=== PATIENT | female | born 1960 | race Caucasian/White ===

== ENCOUNTER 2016-10-18 07:58 | Day surgery (SDC) | payer OTHER ==
[2016-10-12 15:44] VITALS: BMI 31.1
--- NOTE | 2016-10-18 07:55 | P.GSHP ---
History of Present Illness H&P Date: 10/18/16 CHIEF COMPLAINT: GERD and colon screen HISTORY OF PRESENT ILLNESS: The patient is a 56-year-old female who presents reports gastroesophageal reflux disease and need for colon screen. Upper and lower endoscopy were offered for further evaluation and management. PAST MEDICAL HISTORY: Please see list. PAST SURGICAL HISTORY: Please see list. MEDICATIONS: Please see list. ALLERGIES: Please see list. SOCIAL HISTORY: No illicit drug use FAMILY HISTORY: No reports of Crohn disease or ulcerative colitis. REVIEW OF ORGAN SYSTEMS: CONSTITUTIONAL: No reports of fevers or chills. GI: Denies any blood in stools or constipation. PHYSICAL EXAM: VITAL SIGNS: Stable GENERAL: Well-developed pleasant in no acute distress. HEENT: No scleral icterus. Extraocular movements grossly intact. Moist buccal mucosa. NECK: Supple without lymphadenopathy. CHEST: Unlabored respirations. Equal bilateral excursions. CARDIOVASCULAR: Regular rate and rhythm. Distal 2+ pulses. ABDOMEN: Soft, nondistended. MUSCULOSKELETAL: No clubbing, cyanosis, or edema. ASSESSMENT: 1. Gastroesophageal reflux disease 2. Colon screen. PLAN: 1. Recommend proceeding with an upper and lower endoscopy Past Medical History Past Medical History: Coronary Artery Disease (CAD), Heart Failure, GERD/Reflux , Hyperlipidemia, Hypertension, Myocardial Infarction (OK) Additional Past Medical History / Comment(s): VOCAL CORD POLYP Last Myocardial Infarction Date:: 2011 History of Any Multi-Drug Resistant Organisms: None Reported Past Surgical History: Heart Catheterization With Stent, Tonsillectomy, Tubal Ligation Additional Past Surgical History / Comment(s): JHON R.K. SX, VOCAL CHORD POLYPS REMOVED x2 Past Anesthesia/Blood Transfusion Reactions: No Reported Reaction Date of Last Stent Placement:: UNK Past Psychological History: No Psychological Hx Reported Smoking Status: Current every day smoker Past Alcohol Use History: Rare Additional Past Alcohol Use History / Comment(s): STARTED SMOKING AT AGE 17 ( 1976), SMOKING 1/2PPD FOR 36 YRS. Past Drug Use History: None Reported - Past Family History Sister(s) Family Medical History: Cancer Additional Family Medical History / Comment(s): BREAST CA. Medications and Allergies Home Medications Medication Instructions Recorded Confirmed Type Aspirin 81 mg PO QAM 07/29/14 10/12/16 History Carvedilol 25 mg PO BID 07/29/14 10/12/16 History Furosemide [Lasix] 20 mg PO QAM 07/29/14 10/12/16 History Lisinopril [Zestril] 10 mg PO QAM 07/29/14 10/12/16 History amLODIPine [Norvasc] 5 mg PO BID 07/29/14 10/12/16 History Atorvastatin [Lipitor] 80 mg PO HS 08/27/14 10/12/16 History Co Q-10 200 mg PO QAM 10/12/16 10/12/16 History Fish Oil & [place] 3-6-9 1,600 mg PO BID 10/12/16 10/12/16 History Vitamin B Complex 1 tab PO QAM 10/12/16 10/12/16 History Allergies Allergy/AdvReac Type Severity Reaction Status Date / Time No Known Allergies Allergy Verified 10/12/16 15:20
[~2016-10-18 07:58] MED LIST: LACTATED RINGERS 1,000 ML IV SCH; LIDOCAINE 1% 20 ML VIAL (10MG/ML) FOR IV START INTRADERMA PRN
[2016-10-18 08:27] VITALS: TEMP 98.1
[2016-10-18] MEDS ORDERED: LIDOCAINE 1% 20 ML VIAL (10MG/ML) FOR IV START INTRADERMA ONE (08:28)
[2016-10-18] MEDS ORDERED: ePHEDrine 50 MG/ML 1 ML AMP ONE (08:35)
[2016-10-18] MEDS ORDERED: PROPOFOL 10 MG/ML 20 ML VIAL IV ONE (08:35)
[2016-10-18] MEDS ORDERED: fentaNYL (PF) 50 MCG/ML 2 ML AMP ONE (08:35)
[2016-10-18] MEDS ORDERED: MIDAZOLAM 2 MG/2 ML VIAL ONE (08:35)
--- NOTE | 2016-10-18 09:02 | P.PCN ---
Date of Procedure: 10/18/16 Description of Procedure: PREOPERATIVE DIAGNOSIS: Gastroesophageal reflux disease. History of vocal cord polyps. POSTOPERATIVE DIAGNOSIS: Gastroesophageal reflux disease. History of vocal cord polyps. Chronic gastritis without stigmata of prior bleed Diaphragmatic hiatal hernia. Duodenitis. OPERATION: Esophagogastroduodenoscopy with biopsies along antrum and duodenum. SURGEON: Belen Paula MD ANESTHESIA: MAC. INDICATIONS: The patient is a 56-year-old female who presents with a history of reflux disease. Benefits and risks of the procedure were described. Informed consent was obtained. DESCRIPTION: The patient was brought into the endoscopy suite and laid in the left lateral decubitus position. An Olympus gastroscope was passed along the posterior oropharynx down to the distal esophagus where the squamocolumnar junction was encountered at 35 cm from the incisors. The stomach was entered and minimal bile reflux was found. Additional findings are listed below. Biopsies with cold forceps were obtained of the antrum. The first through third portion of the duodenum was examined and remarkable for acute duodenitis. Retroflexion of the scope confirmed Hill grade 4 lower esophageal valve. The squamocolumnar junction demostrated LA grade A erosive esophagitis. The stomach was desufflated. The patient tolerated the procedure well. FINDINGS: Squamocolumnar junction 35 cm from the incisors. Diaphragmatic hiatus at 36 cm from the incisors. Hiatal hernia, 1 cm. Hill grade 4 lower esophageal valve. LA grade A erosive esophagitis. Active duodenitis. Chronic gastritis. RECOMMENDATIONS: Start medical therapy. Further recommendations pending results of pathology report. Upper endoscopy as needed. Plan - Discharge Summary Discharge Medication List Aspirin 81 mg PO QAM 07/29/14 [History] Carvedilol 25 mg PO BID 07/29/14 [History] Furosemide [Lasix] 20 mg PO QAM 07/29/14 [History] Lisinopril [Zestril] 10 mg PO QAM 07/29/14 [History] amLODIPine [Norvasc] 5 mg PO BID 07/29/14 [History] Atorvastatin [Lipitor] 80 mg PO HS 08/27/14 [History] Co Q-10 200 mg PO QAM 10/12/16 [History] Fish Oil & [place] 3-6-9 1,600 mg PO BID 10/12/16 [History] Vitamin B Complex 1 tab PO QAM 10/12/16 [History]
--- NOTE | 2016-10-18 09:04 | P.PCN ---
Date of Procedure: 10/18/16 Description of Procedure: PREOPERATIVE DIAGNOSIS: Colonoscopy screening. Family history of colon cancer. History of rectal bleeding. POSTOPERATIVE DIAGNOSIS: Colonoscopy screening. Family history of colon cancer. History of rectal bleeding. External hemorrhoids, grade 4 without inflammation. Sigmoid diverticulosis. OPERATION: Colonoscopy to the ileocecal valve and appendiceal orifice. SURGEON: Belen Paula MD. ANESTHESIA: MAC. INDICATIONS: The patient is a 56-year-old female who presents for colonoscopy screening. She has family history of colon cancer. Benefits and risks were described and informed consent was obtained. DESCRIPTION OF PROCEDURE: The patient had undergone Gatorade, MiraLAX and Dulcolax prep. The patient had been brought into the operating room and laid in the left lateral decubitus position. After adequate intravenous sedation, the rectum was examined with 2% lidocaine jelly. No external hemorrhoids were encountered. The rectal tone was within normal limits. No lesions were palpated in the rectal vault. An Olympus colonoscope was advanced until the ileocecal valve and appendiceal orifice were clearly viewed. The prep was excellent with clear visualization of the mucosal folds. The scope was removed with visualization of each mucosal fold. Few small scattered diverticulosis was encountered. No colonic polyps were found. No evidence of focal colitis was found. Retroflexion of the scope demonstrated grade 4 internal hemorrhoids without active bleeding or inflammation. The colon was desufflated. The patient had tolerated the procedure well. Withdrawal time was over 6 minutes. FINDINGS: Internal hemorrhoids, grade 4 External prolapsed hemorrhoids. No arteriovenous malformations. No adenomatous polyps. No focal colitis. Sigmoid diverticulosis, few, scattered. RECOMMENDATIONS: Lower endoscopy every 5 years with family history of colon polyps or cancer, due 2021.
[2016-10-18 09:12] VITALS: RESP 16
[2016-10-18 09:53] VITALS: BP 94/62; PULSE 56
== END 2016-10-18 10:09 | disposition home or self-care (01) ==
LOC: ORWHC2ENDO 07:58
PROVIDERS: ATTEND Surgery Plastic and Reconstructive Surgery
DX: Z12.11 Encounter for screening for malignant neoplasm of colon (principal); Z80.0 Family history of malignant neoplasm of digestive organs; K64.3 Fourth degree hemorrhoids; K57.30 Diverticulosis of large intestine without perforation or abscess without bleeding; K29.50 Unspecified chronic gastritis without bleeding; K21.0 Gastro-esophageal reflux disease with esophagitis; K44.9 Diaphragmatic hernia without obstruction or gangrene; K29.80 Duodenitis without bleeding; Z87.898 Personal history of other specified conditions; Z87.19 Personal history of other diseases of the digestive system; I25.10 Atherosclerotic heart disease of native coronary artery without angina pectoris; E78.5 Hyperlipidemia, unspecified; I11.0 Hypertensive heart disease with heart failure; I50.9 Heart failure, unspecified; I25.2 Old myocardial infarction; Z95.5 Presence of coronary angioplasty implant and graft; F17.200 Nicotine dependence, unspecified, uncomplicated; Z79.82 Long term (current) use of aspirin; Z79.899 Other long term (current) drug therapy
CPT/HCPCS: 81025; 88305; 88342; 43239; J2250; J3010; J2704; G0105; 99153

== ENCOUNTER → 2018-01-22 | Outpatient (CLI) | payer BC ==
--- NOTE | 2018-01-22 17:41 | XR ---
EXAMINATION TYPE: XR shoulder complete LT DATE OF EXAM: 01/22/2018 COMPARISON: NONE HISTORY: Shoulder pain TECHNIQUE: 3 views FINDINGS: I see no fracture nor dislocation. Joint spaces are normal. There are no pathologic calcifi cations. IMPRESSION: Negative left shoulder exam.
== END | disposition home or self-care (01) ==
LOC: RADXRMAIN 17:24
PROVIDERS: ATTEND Physician Assistant
DX: M25.512 Pain in left shoulder (principal)

== ENCOUNTER → 2018-11-06 | Outpatient (CLI) | payer BC ==
--- NOTE | 2018-11-07 01:38 | XR ---
EXAMINATION TYPE: XR wrist complete RT DATE OF EXAM: 11/06/2018 COMPARISON: NONE HISTORY: 58 year-old female right wrist pain after fall TECHNIQUE: 4 views FINDINGS: Degenerative joint space narrowing at the distal radioulnar joint. Very slight positive ulnar varianc e. Mild to moderate degenerative spurring and mild joint space narrowing at the first CMC and triscap he joints. Mild soft tissue swelling. No acute fracture, subluxation, or dislocation seen. IMPRESSION: 1. Some degenerative changes at the DRUJ and base of the thumb. 2. Soft tissue swelling at the wrist. No acute osseous abnormality seen.
== END | disposition home or self-care (01) ==
LOC: RADXRMAIN 16:14
PROVIDERS: ATTEND Nurse Practitioner Adult Health
DX: M19.031 Primary osteoarthritis, right wrist (principal)

== ENCOUNTER → 2021-01-12 | Outpatient (CLI) | payer BC ==
--- NOTE | 2021-01-12 15:52 | XR ---
EXAMINATION TYPE: XR ankle complete LT DATE OF EXAM: 01/12/2021 COMPARISON: NONE HISTORY: Pain TECHNIQUE: 3 views of the left ankle are submitted for evaluation. FINDINGS: There is no evidence for fracture or dislocation. Ankle mortise is intact. Soft tissues are within normal limits. IMPRESSION: 1. No evidence for acute fracture.
--- NOTE | 2021-01-12 15:52 | XR ---
EXAMINATION TYPE: XR foot complete LT DATE OF EXAM: 01/12/2021 CLINICAL HISTORY: pain TECHNIQUE: Frontal, lateral and oblique images of the left foot are obtained. COMPARISON: None. FINDINGS: There is no acute fracture/dislocation evident. The joint spaces appear within normal miranda its. The overlying soft tissue appears unremarkable. IMPRESSION: There is no acute fracture or dislocation. ICD 10 NO FRACTURE, INITIAL EVALUATION
== END | disposition home or self-care (01) ==
LOC: RADXRMAIN 15:17
PROVIDERS: ATTEND Nurse Practitioner Family
DX: S99.922A Unspecified injury of left foot, initial encounter (principal)

== ENCOUNTER → 2023-04-25 | Outpatient (CLI) | payer OTHER ==
[2023-04-25 17:13] LABS: ALT 16 U/L (8-44); AST 22 U/L (13-35); Chol/HDL Ratio 3.45 Ratio; LDL Cholesterol,Calculated 85.3 mg/dL (0.0-131.0)
== END | disposition home or self-care (01) ==
LOC: LABWHC1 10:07
PROVIDERS: ATTEND Internal Medicine Interventional Cardiology
DX: E78.00 Pure hypercholesterolemia, unspecified (principal)
CPT/HCPCS: 36415; 80061; 84450; 84460

== ENCOUNTER → 2023-07-05 | Outpatient (CLI) | payer BC ==
--- NOTE | 2023-07-05 13:51 | XR ---
EXAMINATION TYPE: XR chest 2V DATE OF EXAM: 07/05/2023 12:56 PM CLINICAL INDICATION:Female, 63 years old with history of I50.9 Heart failure unspecified; PH[facility] COMPARISON: Chest radiographs from 09/06/2012 TECHNIQUE: XR chest 2V Frontal and lateral views of the chest. FINDINGS: Lungs/Pleura: Elevated right diaphragm with consolidation changes of the right lung base likely repre senting the right middle lobe. There is no evidence of pleural effusion, focal consolidation, or pneu mothorax. Pulmonary vascularity: Unremarkable. Heart/mediastinum: Cardiomediastinal silhouette is unremarkable. Musculoskeletal: No acute osseous pathology. IMPRESSION: Consolidation changes thought to represent the right middle lobe in the lung base. Further evaluation with CT is recommended.
== END | disposition home or self-care (01) ==
LOC: RADXRMAIN 12:40
PROVIDERS: ATTEND Family Medicine
DX: I50.9 Heart failure, unspecified (principal); R91.8 Other nonspecific abnormal finding of lung field
CPT/HCPCS: 71046

== ENCOUNTER → 2023-07-10 | Outpatient (CLI) | payer BC ==
--- NOTE | 2023-07-10 14:31 | CT ---
EXAMINATION TYPE: CT chest wo/w con CT DLP: 749.00 mGycm, Automated exposure control for dose reduction was used. DATE OF EXAM: 07/10/2023 2:16 PM COMPARISON: CTA coronary 09/04/2012. CLINICAL INDICATION:Female, 63 years old with history of J18.1 LOBAR PNEUMONIA; PHH, pneumonia TECHNIQUE: Multiple axial images were obtained through the chest. Sagittal and coronal reformats were created for review. Contrast used:100 mL of Isovue 300 with IV Contrast (None if empty) Oral contrast used: (None if empty) FINDINGS: LUNGS/ PLEURA: [id number] right pleural effusion. This gradually septal thickening within the right lung with ground glass opacities. There is atelectasis of the lower lung. Small area of enhance ment in the inferior aspect of the right lower lobe medially measuring 11 mm. AIRWAY: Large airways cut off sign in the right main bronchus. HEART: Size within normal limits. MEDIASTINUM: Conglomerate lymphadenopathy throughout the mediastinum. Examples include subcarinal mas s-like area measuring 5.6 x 3.4 cm which obscures the esophagus. Microinvasion into the esophagus is nontender excluded.. AP window lymph node measuring up to 18 mm, prevascular space lymph nodes measur ing up to 5.1 x 2.2 cm. VASCULATURE: No aortic aneurysm. MUSCULOSKELETAL: No acute osseous abnormalities SOFT TISSUES/LYMPH NODES: Unremarkable. LOWER NECK: No significant findings. UPPER ABDOMEN: Scattered lesions throughout the liver the largest measuring up to 2.8 cm in the right hepatic lobe and left hepatic lobe measuring up to 3.2 cm. Upper abdominal lymph nodes are also pres ent. Gastric hepatic lymph node measuring 7 mm in short axis is suspicious. Nodular changes to the ad renal glands are also present. IMPRESSION: 1. 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 2. PET/CT recommended for Further workup recommended. 3. Right pleural effusion with right inferior medial lobe pulmonary nodule which could be on the and visceral pleura. Findings concerning for pleural metastatic disease. 4. There is obscuration of the esophagus as it passes along large mediastinal mass. Underlying invas ion into the esophagus not entirely excluded. Correlate with
== END | disposition home or self-care (01) ==
LOC: RADCTMAIN 13:19
PROVIDERS: ATTEND Family Medicine
DX: J18.1 Lobar pneumonia, unspecified organism (principal); J90 Pleural effusion, not elsewhere classified; R91.1 Solitary pulmonary nodule
CPT/HCPCS: 71270; Q9967

== ENCOUNTER 2023-07-14 18:35 | Inpatient (IN) | payer BC ==
[2023-07-14] MEDS ORDERED: methylPREDNISolone SOD SUCCI 125 MG/2 ML VIAL IV STA (18:55)
[2023-07-14] MEDS ORDERED: IPRATROPIUM-ALBUTEROL 3 ML NEB INHALATION STA (18:55)
[2023-07-14] MEDS ORDERED: SODIUM CHLORIDE 0.9% 1,000 ML IV STA (18:55)
--- NOTE | 2023-07-14 18:55 | ED ---
SOB HPI - General Chief Complaint: Shortness of Breath Stated Complaint: SOB Time Seen by Provider: 07/14/23 18:44 Source: patient, EMS, RN notes reviewed, old records reviewed Mode of arrival: EMS Limitations: no limitations - History of Present Illness Initial Comments: This is a 63-year-old female to the emergency department for evaluation. Patient presents today for evaluation regards to severe. Patient does have recent likely diagnosis of lung cancer and lung mass. Underlying history of smoking with heart disease. Patient is having increasing shortness of breath especially with any sort of exertion. Patient's exercise tolerance is down to just been able take a few steps patient did recently a PET scan showing likely mass MD Complaint: shortness of breath -: hour(s), days(s) Severity: moderate Severity scale (1-10): 4 Consistency: constant Improves With: nothing Worsens With: nothing Known History Of: COPD, congestive heart failure Context: recent URI, recent illness Associated Symptoms: chest pain, cough Treatments Prior to Arrival: none - Related Data Home Medications Medication Instructions Recorded Confirmed Aspirin 81 mg PO DAILY 07/29/14 07/14/23 Carvedilol 25 mg PO BID 07/29/14 07/14/23 Furosemide [Lasix] 20 mg PO DAILY 07/29/14 07/14/23 amLODIPine [Norvasc] 5 mg PO BID 07/29/14 07/14/23 lisinopriL [Zestril] 10 mg PO DAILY 07/29/14 07/14/23 Atorvastatin [Lipitor] 80 mg PO HS 08/27/14 07/14/23 Levofloxacin [Levaquin] 500 mg PO DAILY 07/14/23 07/14/23 Allergies Allergy/AdvReac Type Severity Reaction Status Date / Time No Known Allergies Allergy Verified 07/17/23 12:37 Review of Systems ROS Statement: Those systems with pertinent positive or pertinent negative responses have been documented in the HPI. ROS Other: All systems not noted in ROS Statement are negative. Past Medical History Past Medical History: Coronary Artery Disease (CAD), Heart Failure, GERD/Reflux, Hyperlipidemia, Hypertension, Myocardial Infarction ([place]) Additional Past Medical History / Comment(s): VOCAL CORD POLYP Last Myocardial Infarction Date:: 2011 History of Any Multi-Drug Resistant Organisms: None Reported Past Surgical History: Heart Catheterization With Stent, Tonsillectomy, Tubal Ligation Additional Past Surgical History / Comment(s): JHON R.K. SX, VOCAL CHORD POLYPS REMOVED x2 Past Anesthesia/Blood Transfusion Reactions: No Reported Reaction Date of Last Stent Placement:: UNK Past Psychological History: No Psychological Hx Reported Smoking Status: Current every day smoker Past Alcohol Use History: Rare Past Drug Use History: None Reported - Past Family History Sister(s) Family Medical History: Cancer General Exam Limitations: no limitations General appearance: alert, in no apparent distress, anxious Head exam: Present: atraumatic, normocephalic, normal inspection Eye exam: Present: normal appearance, PERRL, EOMI. Absent: scleral icterus, conjunctival injection, periorbital swelling ENT exam: Present: normal exam, mucous membranes moist Neck exam: Present: normal inspection. Absent: tenderness, meningismus, lymphadenopathy Respiratory exam: Present: normal lung sounds bilaterally. Absent: respiratory distress, wheezes, rales, rhonchi, stridor Cardiovascular Exam: Present: regular rate, normal rhythm, normal heart sounds. Absent: systolic murmur, diastolic murmur, rubs, gallop, clicks GI/Abdominal exam: Present: soft, normal bowel sounds. Absent: distended, te nderness, guarding, rebound, rigid Extremities exam: Present: normal inspection, full ROM, normal capillary refill. Absent: tenderness, pedal edema, joint swelling, calf tenderness Back exam: Present: normal inspection Neurological exam: Present: alert, oriented X3, CN II-XII intact Psychiatric exam: Present: normal affect, normal mood Skin exam: Present: warm, dry, intact, normal color. Absent: rash Course Vital Signs 07/14/23 07/14/23 07/14/23 18:40 18:43 18:45 Temperature 98.1 F Pulse Rate 89 Respiratory 22 22 Rate Blood Pressure 118/65 118/65 O2 Sat by Pulse 96 96 Oximetry 07/14/23 07/14/23 07/14/23 19:00 19:28 19:30 Temperature Pulse Rate 85 86 85 Respiratory 18 Rate Blood Pressure 118/65 94/57 O2 Sat by Pulse 95 98 Oximetry 07/14/23 07/14/23 07/14/23 19:41 20:00 21:00 Temperature Pulse Rate 87 86 Respiratory 18 Rate Blood Pressure 96/62 111/72 O2 Sat by Pulse 96 Oximetry 07/14/23 07/14/2307/15/23 21:30 22:00 00:00 Temperature Pulse Rate 87 90 89 Respiratory 20 20 20 Rate Blood Pressure 118/72 121/64 105/66 O2 Sat by Pulse 95 95 96 Oximetry 07/15/23 07/15/23 07/15/23 00:25 00:30 00:34 Temperature Pulse Rate 91 87 87 Respiratory 19 Rate Blood Pressure 112/67 O2 Sat by Pulse 98 Oximetry 07/15/23 07/15/23 07/15/23 01:00 01:14 01:30 Temperature Pulse Rate 90 93 Respiratory 19 18 Rate Blood Pressure 119/70 103/61 O2 Sat by Pulse 95 95 95 Oximetry 07/15/23 07/15/23 07/15/23 02:30 03:09 04:00 Temperature Pulse Rate 94 96 97 Respiratory 17 Rate Blood Pressure 113/63 112/70 112/70 O2 Sat by Pulse 95 95 93 L Oximetry 07/15/23 07/15/23 07/15/23 05:00 05:12 05:24 Temperature Pulse Rate 90 90 91 Respiratory Rate Blood Pressure 111/62 O2 Sat by Pulse 96 Oximetry 07/15/23 07/15/23 07/15/23 06:00 06:23 07:00 Temperature Pulse Rate 87 89 90 Respiratory 16 Rate Blood Pressure 98/62 98/62 89/58 O2 Sat by Pulse 96 96 Oximetry 07/15/23 07/15/23 07/15/23 07:56 08:00 08:04 Temperature Pulse Rate 93 99 Respiratory 18 18 Rate Blood Pressure 99/61 O2 Sat by Pulse 98 100 Oximetry 07/15/23 07/15/23 07/15/23 08:43 09:00 10:00 Temperature 98.7 F Pulse Rate 99 96 89 Respiratory 18 Rate Blood Pressure 139/87 139/81 100/69 O2 Sat by Pulse 94 L 95 98 Oximetry 07/15/23 07/15/23 07/15/23 11:00 11:15 11:22 Temperature Pulse Rate 86 89 86 Respiratory 18 16 Rate Blood Pressure 113/71 O2 Sat by Pulse 94 L Oximetry 07/15/23 07/15/23 07/15/23 12:00 12:37 13:00 Temperature Pulse Rate 86 85 89 Respiratory 18 Rate Blood Pressure 89/58 96/60 96/60 O2 Sat by Pulse 95 95 95 Oximetry 07/15/23 07/15/23 07/15/23 14:00 15:00 16:00 Temperature Pulse Rate 87 90 89 Respiratory Rate Blood Pressure 99/61 84/58 91/55 O2 Sat by Pulse 95 96 96 Oximetry 07/15/23 07/15/23 07/15/23 16:14 16:25 17:00 Temperature Pulse Rate 90 90 89 Respiratory 18 18 Rate Blood Pressure 95/57 O2 Sat by Pulse 96 Oximetry 07/15/23 07/15/23 07/15/23 18:00 18:02 19:00 Temperature 98.1 F Pulse Rate 88 87 88 Respiratory 18 Rate Blood Pressure 112/70 110/66 110/66 O2 Sat by Pulse 96 Oximetry 07/15/23 07/15/23 07/15/23 19:30 20:00 20:10 Temperature Pulse Rate 89 90 90 Respiratory 19 Rate Blood Pressure 102/55 102/55 O2 Sat by Pulse 95 94 L Oximetry 07/15/23 07/15/23 07/15/23 20:25 21:00 22:00 Temperature Pulse Rate 90 88 89 Respiratory Rate Blood Pressure 85/62 103/65 O2 Sat by Pulse Oximetry 07/15/23 07/15/23 07/15/23 22:13 23:00 23:17 Temperature Pulse Rate 88 85 84 Respiratory 19 19 Rate Blood Pressure 90/77 90/77 107/64 O2 Sat by Pulse 92 L Oximetry 07/16/23 07/16/23 07/16/23 00:00 01:00 02:00 Temperature Pulse Rate 90 88 86 Respiratory Rate Blood Pressure 107/64 O2 Sat by Pulse Oximetry 07/16/23 07/16/23 07/16/23 02:30 03:00 04:00 Temperature 97.8 F Pulse Rate 102 H 91 93 Respiratory 20 Rate Blood Pressure 142/96 142/96 128/84 O2 Sat by Pulse 93 L Oximetry 07/16/23 07/16/23 05:00 05:36 Temperature Pulse Rate 86 89 Respiratory 19 Rate Blood Pressure 128/84 128/84 O2 Sat by Pulse 93 L Oximetry - Reevaluation(s) Reevaluation #1: 07/14/23 19:19 Medical record is reviewed Reevaluation #2: 07/14/23 22:41 Patient symptoms are mildly improved with breathing treatment Reevaluation #3: 10/28/23 22:41 Patient informed results and questions answered Reevaluation #4: 07/14/23 19:19 Was pt. sent in by a medical professional or institution (SWETHA Castillo, PHYS ASST, urgent care, hospital, or assisted...) When possible be specific @ -no Did you speak to anyone other than the patient for history (EMS, parent, family, police, friend...)? What history was obtained from this source @ -no Did you review nursing and triage notes (agree or disagree)? Why? @ -agree Are old charts reviewed (outside hosp., previous admission, EMS record, old EKG, old radiological studies, urgent care reports/EKG's, assisted records)? Report findings @ -yes Differential Diagnosis (chest pain, altered mental status, abdominal pain women, abdominal pain men, vaginal bleeding, weakness, fever, dyspnea, syncope, headache, dizziness, GI bleed, back pain, seizure, CVA, palpatations, mental health, musculoskeletal)? @ -prior EKG interpreted by me (3pts min.). @ -yes X-rays interpreted by me (1pt min.). @ -yes CT interpreted by me (1pt min.). @ -yes U/S interpreted by me (1pt. min.). @ -no What testing was considered but not performed or refused? (CT, X-rays, U/S, labs)? Why? @ -none What meds were considered but not given or refused? Why? @ -none Did you discuss the management of the patient with other professionals (professionals i.e. SWETHA Castillo, [facility]YS [facility], lab, RT, psych nurse, adoption social worker, electric tripper machine operator, teacher, security vehicle patrol officer, case technician)? Give summary @ -no Was smoking cessation discussed for >3mins.? @ -no Was critical care preformed (if so, how long)? @ -no Were there social determinants of health that impacted care today? How? (Homelessness, low income, unemployed, alcoholism, drug addiction, transportation, low edu. Level, literacy, decrease access to med. care, group home, rehab)? @ -none Was there de-escalation of care discussed even if they declined (Discuss DNR or withdrawal of care, Hospice)? DNR status @ -no What co-morbidities impacted this encounter? (DM, HTN, Smoking, COPD, CAD, Cancer, CVA, ARF, Chemo, Hep., AIDS, mental health diagnosis, sleep apnea, morbid obesity)? @ -none Was patient admitted / discharged? Hospital course, mention meds given and route, prescriptions, significant lab abnormalities, going to OR and other pertinent info. @ - 63 female to the emergency department for evaluation of severe shortness of breath, severe underlying COPD with likely oncology, cancer right lower with right lung opacification an effusion Admitted Undiagnosed new problem with uncertain prognosis? @ -no Drug Therapy requiring intensive monitoring for toxicity (Heparin, Nitro, Insulin, Cardizem)? @ -no Were any procedures done? @ -no Diagnosis/symptom? @ -COPD with possibility of underlying cancer Acute, or Chronic, or Acute on Chronic? @ -Acute Uncomplicated (without systemic symptoms) or Complicated (systemic symptoms)? @ -Complicated Side effects of treatment? @ -no Exacerbation, Progression, or Severe Exacerbation? @ -exacerbation Poses a threat to life or bodily function? How? (Chest pain, [place], [place], pneumonia, PE, COPD, DKA, ARF, appy, cholecystitis, CVA, Diverticulitis, Homicidal, Suicidal, threat to staff... and all critical care pts) @ -yes Reevaluation #5: 07/14/23 22:41 Differential Dyspnea: Coronary syndrome, arrhythmia, tamponade, asthma, COPD, pulmonary embolism, pneumonia, pneumothorax, pulmonary effusion, anaphylaxis, diabetic ketoacidosis, flailed chest, pulmonary contusion, diaphragmatic rupture, anemia, neuromuscular, this is not meant to be an all-inclusive list. - Consultations Consultation #1: Spoke with [facility] were agrees to admit this patient Medical Decision Making - Medical Decision Making 63 female to the emergency department for evaluation of severe shortness of breath, severe underlying COPD with likely oncology, cancer right lower with right lung opacification an effusion - Lab Data Result diagrams: 07/22/23 03:49 07/22/23 03:54 Lab Results 07/14/23 07/14/23 07/14/23 Range/Units 19:21 19:21 19:21 PT 11.5 (10.0-12.5) sec INR 1.1 (<1.2) APTT 25.8 (22.0-30.0) sec D-Dimer 1.67 H (<0.60) mg/L FEU Sodium 128 L (137-145) mmol/L Potassium 3.8 (3.5-5.1) mmol/L Chloride 96 L (98-107) mmol/L Carbon Dioxide 23 (22-30) mmol/L Anion Gap 9 mmol/L BUN 18 H (7-17) mg/dL Creatinine 0.43 L (0.52-1.04) mg/dL Est GFR (CKD-EPI)AfAm >90 (>60 ml/min/1.73 sqM) Est GFR (CKD-EPI)NonAf >90 (>60 ml/min/1.73 sqM) Glucose 109 H (74-99) mg/dL Plasma Lactic Acid Chencho 1.3 (0.7-2.0) mmol/L Calcium 8.3 L (8.4-10.2) mg/dL Magnesium 1.9 (1.6-2.3) mg/dL Total Bilirubin 0.7 (0.2-1.3) mg/dL AST 39 H (14-36) U/L ALT 20 (4-34) U/L Alkaline Phosphatase 75 (38-126) U/L Troponin I (0.000-0.034) ng/mL NT-Pro-B Natriuret Pep 178 pg/mL Total Protein 6.0 L (6.3-8.2) g/dL Albumin 3.0 L (3.5-5.0) g/dL 07/14/ Range/Units 19:21 PT (10.0-12.5) sec INR (<1.2) APTT (22.0-30.0) sec D-Dimer (<0.60) mg/L FEU Sodium (137-145) mmol/L Potassium (3.5-5.1) mmol/L Chloride (98-107) mmol/L Carbon Dioxide (22-30) mmol/L Anion Gap mmol/L BUN (7-17) mg/dL Creatinine (0.52-1.04) mg/dL Est GFR (CKD-EPI)AfAm (>60 ml/min/1.73 sqM) Est GFR (CKD-EPI)NonAf (>60 ml/min/1.73 sqM) Glucose (74-99) mg/dL Plasma Lactic Acid Chen[place] (0.7-2.0) mmol/L Calcium (8.4-10.2) mg/dL Magnesium (1.6-2.3) mg/dL Total Bilirubin (0.2-1.3) mg/dL AST (14-36) U/L ALT (4-34) U/L Alkaline Phosphatase (38-126) U/L Troponin I <0.012 (0.000-0.034) ng/mL NT-Pro-B Natriuret Pep pg/mL Total Protein (6.3-8.2) g/dL Albumin (3.5-5.0) g/dL - EKG Data -: EKG Interpreted by Me (EKG is sinus 85 VA 156 QRS 91 QTC 386) - Radiology Data Radiology results: report reviewed (Chest x-ray CT chest show right lung effusion opacification), image reviewed Critical Care Time Critical Care Time: Yes Total Critical Care Time: 31 Disposition Clinical Impression: Acute exacerbation of chronic obstructive pulmonary disease, Acute respiratory failure, Pleural effusion, Hyponatremia, Pleural effusion, right Disposition: ADMITTED IP TO THIS HOSP Condition: Fair Is patient prescribed a controlled substance at d/c from ED?: No Time of Disposition: 22:30
[2023-07-14 19:48] LABS: ALT 20 U/L (4-34); AST 39 U/L (14-36); African American GFR (CKD) >90 (>60 ml/min/1.73 sqM); Alkaline Phosphatase 75 U/L (38-126); Anion Gap 9 mmol/L; Blood Urea Nitrogen 18 mg/dL (7-17); Calcium 8.3 mg/dL (8.4-10.2); Carbon Dioxide 23 mmol/L (22-30); Chloride 96 mmol/L (98-107); Glucose 109 mg/dL (74-99); Magnesium 1.9 mg/dL (1.6-2.3); Non-African American GFR(CKD) >90 (>60 ml/min/1.73 sqM); Potassium 3.8 mmol/L (3.5-5.1); Sodium 128 mmol/L (137-145); Total Bilirubin 0.7 mg/dL (0.2-1.3)
[2023-07-14 19:51] LABS: INR 1.1 (<1.2); Partial Thromboplastin Time 25.8 sec (22.0-30.0); Prothrombin Time 11.5 sec (10.0-12.5)
[2023-07-14 19:56] LABS: NT-Pro-B-Type Natriuretic Pept 178 pg/mL
--- NOTE | 2023-07-14 20:31 | XR ---
EXAMINATION TYPE: XR chest 1V portable DATE OF EXAM: 07/14/2023 COMPARISON: 07/05/2023 INDICATION: Short of breath TECHNIQUE: Single frontal view of the chest is obtained. FINDINGS: The heart size is normal. The pulmonary vasculature is normal. There is opacification of the right lung. IMPRESSION: 1. Interval plate ossification of the right lung. Correlate for atelectasis and effusions.
--- NOTE | 2023-07-14 20:58 | CT ---
CT CHEST FOR PULMONARY EMBOLISM. EXAMINATION TYPE: CT angio chest DATE OF EXAM: 07/14/2023 INDICATION: Shortness of breath x 3 days. States that she quit smoking a few months ago. CT DLP: 357.9 mGycm, Automated exposure control for dose reduction was used. CONTRAST: Patient injected with 100 cc mL of Isovue 370. COMPARISON: 07/10/2023 TECHNIQUE: CT of the chest is performed on a spiral scan at 2 mm thick sections. Study is performed with intravenous contrast timed for evaluation for pulmonary embolism. This will limit additional po rtions of the evaluation. 3-D MIP images reconstructed by the technologist are reviewed on the compu ter in the coronal and sagittal planes. FINDINGS: No persistent filling defects are evident to suggest an acute pulmonary embolism. Prominent mediastinal adenopathy is present. The ascending aorta diameter at the level of the main p ulmonary artery is 3.3 cm. The main pulmonary artery diameter at the bifurcation is 2.4 cm. Small pe ricardial effusion is present. There is a large right pleural effusion. There is a consolidation through the remaining portions of t he lung. Compressive atelectasis at the right lung base. Underlying masses would be difficult to excl ude and follow-up to clearing is recommended. Suspected metastatic disease within the liver poorly visualized this time. IMPRESSION: 1. No acute pulmonary embolism. 2. There is poor vascularity on the right with a large right pleural effusion, compressive atelectasi s at the lung bases and apparent consolidation within the right upper lung field. Underlying mass bowen uld be considered. Findings are worsening from comparison 3. Enlarged mediastinal adenopathy.
[2023-07-14] MEDS ORDERED: ONDANSETRON 4 MG/2 ML VIAL IVP PRN (22:34)
[2023-07-14] MEDS ORDERED: NALOXONE 0.4 MG/ML 1 ML VIAL IV PRN (22:34)
[2023-07-14] MEDS ORDERED: MORPHINE SULFATE 4 MG/ML SYRINGE IV PRN (22:34)
[2023-07-14] MEDS ORDERED: ACETAMINOPHEN TAB 325 MG TAB PO PRN (22:34)
[2023-07-14] MEDS: SODIUM CHLORIDE 0.9% 1,000 ML IV SCH (23:04)
[2023-07-14 23:15] LABS: Basophils % (A) 0 %; Eosinophils # (A) 0.1 k/uL (0-0.7); Eosinophils % (A) 0 %; HCT 33.8 % (34.0-46.0); Lymphocytes # (A) 0.5 k/uL (1.0-4.8); Lymphocytes % (A) 4 %; MCHC 33.8 g/dL (31.0-37.0); MCV 91.9 fL (80.0-100.0); Mean Platelet Volume 7.2; Monocytes # (A) 0.3 k/uL (0-1.0); Monocytes % (A) 2 %; Neutrophils # (A) 12.3 k/uL (1.3-7.7); Neutrophils % (A) 93 %; Platelet Count 376 k/uL (150-450); RBC 3.68 m/uL (3.80-5.40); RDW 12.8 % (11.5-15.5); WBC 13.2 k/uL (3.8-10.6)
[2023-07-14 23:52] LABS: HGB 11.4 gm/dL (11.4-16.0)
[2023-07-15] MEDS: ALBUTEROL NEBULIZED 2.5 MG/3 ML INHALATION SCH ×7 (00:23→20:10)
[2023-07-15 03:50] LABS: Basophils % (A) 0 %; Eosinophils # (A) 0.1 k/uL (0-0.7); Eosinophils % (A) 1 %; HCT 35.6 % (34.0-46.0); HGB 11.8 gm/dL (11.4-16.0); Lymphocytes # (A) 0.5 k/uL (1.0-4.8); Lymphocytes % (A) 4 %; MCH 30.8 pg (25.0-35.0); MCHC 33.3 g/dL (31.0-37.0); MCV 92.4 fL (80.0-100.0); Mean Platelet Volume 7.2; Monocytes # (A) 0.3 k/uL (0-1.0); Monocytes % (A) 2 %; Neutrophils # (A) 13.3 k/uL (1.3-7.7); Neutrophils % (A) 94 %; Platelet Count 408 k/uL (150-450); RBC 3.85 m/uL (3.80-5.40); RDW 12.8 % (11.5-15.5); WBC 14.2 k/uL (3.8-10.6)
[2023-07-15 04:00] LABS: ALT 23 U/L (4-34); AST 38 U/L (14-36); African American GFR (CKD) >90 (>60 ml/min/1.73 sqM); Albumin 3.3 g/dL (3.5-5.0); Alkaline Phosphatase 86 U/L (38-126); Anion Gap 12 mmol/L; Blood Urea Nitrogen 16 mg/dL (7-17); Carbon Dioxide 22 mmol/L (22-30); Chloride 97 mmol/L (98-107); Glucose 163 mg/dL (74-99); Magnesium 2.1 mg/dL (1.6-2.3); Non-African American GFR(CKD) >90 (>60 ml/min/1.73 sqM); Phosphorus 4.6 mg/dL (2.5-4.5); Potassium 4.2 mmol/L (3.5-5.1); Sodium 131 mmol/L (137-145); Total Bilirubin 0.5 mg/dL (0.2-1.3); Total Protein 6.5 g/dL (6.3-8.2)
[2023-07-15] MEDS: carvediloL 12.5 MG TAB PO SCH ×2 (08:35→17:33)
[2023-07-15] MEDS: amLODIPine 5 MG TAB PO SCH ×3 (08:35→20:26)
--- NOTE | 2023-07-15 08:35 | P.HPIM ---
History of Present Illness This is a pleasant 63 years old female with past medical history of Coronary Artery Disease s/p stenting, Heart Failure, GERD/Reflux, Hyperlipidemia, Hypertension, her PCP is Dr. Navarrete and convalescent sitter Dr. Neff for her history of coronary artery disease status post stent Patient presents because of worsening dyspnea over 3 days especially with exertion she has to stop to catch up with her breath. No significant chest pain and no significant coughing No other urinary GI symptoms. No dizziness weakness or numbness. She quit smoking about 2 months ago, lately she used to smoke 5 cigarettes per day. No alcohol or illicit drugs. She is hemodynamically stable, afebrile saturating well on 2 L oxygen via nasal cannula Labs showed mild leukocytosis of 13 and 14,000. Sodium markedly low at 1.8 and 131. ProBNP is low at 178. Troponin were unremarkable. Labs including CBC, BMP liver enzymes are unremarkable EKG showing normal sinus rhythm at 85 CT of the lung showing normal pulmonary embolism and rule out right pleural ef fusion with right lung consolidation suspicious for a mass. Review of Systems Review of systems CONSTITUTIONAL: No fever, no malaise, no fatigue. HEENT: No recent visual problems or hearing problems. Denied any sore throat. CARDIOVASCULAR: No orthopnea, PND, no palpitations, no syncope. PULMONARY:No chest wall tenderness , no hemoptysis. GASTROINTESTINAL: No diarrhea, no nausea, no vomiting, no abdominal pain. Normoactive bowel sounds. NEUROLOGICAL: No headaches, no weakness, no numbness. HEMATOLOGICAL: Denies any bleeding or petechiae. GENITOURINARY: Denies any burning micturition, frequency, or urgency. MUSCULOSKELETAL/RHEUMATOLOGICAL: Denies any joint pain, swelling, or any muscle pain. ENDOCRINE: Denies any polyuria or polydipsia. Past Medical History Past Medical History: Coronary Artery Disease (CAD), Heart Failure, GERD/Reflux, Hyperlipidemia, Hypertension, Myocardial Infarction ([place]) Additional Past Medical History / Comment(s): VOCAL CORD POLYP Last Myocardial Infarction Date:: 2011 History of Any Multi-Drug Resistant Organisms: None Reported Past Surgical History: Heart Catheterization With Stent, Tonsillectomy, Tubal Ligation Additional Past Surgical History / Comment(s): JHON R.K. SX, VOCAL CHORD POLYPS REMOVED x2 Past Anesthesia/Blood Transfusion Reactions: No Reported Reaction Date of Last Stent Placement:: UNK Past Psychological History: No Psychological Hx Reported Smoking Status: Current every day smoker Past Alcohol Use History: Rare Past Drug Use History: None Reported - Past Family History Sister(s) Family Medical History: Cancer Medications and Allergies Home Medications Medication Instructions Recorded Confirmed Type Aspirin 81 mg PO DAILY 07/29/14 07/14/23 History Carvedilol 25 mg PO BID 07/29/14 07/14/23 History Furosemide [Lasix] 20 mg PO DAILY 07/29/14 07/14/23 History amLODIPine [Norvasc] 5 mg PO BID 07/29/14 07/14/23 History lisinopriL [Zestril] 10 mg PO DAILY 07/29/14 07/14/23 History Atorvastatin [Lipitor] 80 mg PO HS 08/27/14 07/14/23 History Levofloxacin [Levaquin] 500 mg PO DAILY 07/14/23 07/14/23 History Allergies Allergy/AdvReac Type Severity Reaction Status Date / Time No Known Allergies Allergy Verified 07/14/23 19:42 Physical Exam Vitals: Vital Signs Temp Pulse Resp BP Pulse Ox 07/15/23 06:23 89 16 98/62 96 07/15/23 05:24 91 07/15/23 05:12 90 07/15/23 02:30 94 17 113/63 95 07/15/23 01:30 93 18 103/61 95 07/15/23 01:14 95 07/15/23 01:00 90 19 119/70 95 07/15/23 00:34 87 07/15/23 00:30 87 19 112/67 98 07/15/23 00:25 91 07/15/23 00:00 89 20 105/66 96 07/14/23 22:00 90 20 121/64 95 07/14/23 21:30 87 20 118/72 95 07/14/23 21:00 86 18 111/72 96 07/14/23 20:00 96/62 07/14/23 19:41 87 07/14/23 19:30 85 18 94/57 98 07/14/23 19:28 86 07/14/23 19:00 85 118/65 95 07/14/23 18:45 22 07/14/23 18:43 98.1 F 89 22 118/65 96 07/14/23 18:40 118/65 96 Intake and Output 07/14/23 07/15/23 07/15/23 22:59 06:59 14:59 Other: Weight 72.575 kg GENERAL: The patient is alert and oriented x3, not in any acute distress. Well developed, well nourished. HEENT: Pupils are round and equally reacting to light. EOMI. No scleral icterus. No conjunctival pallor. Normocephalic, atraumatic. No pharyngeal erythema. No thyromegaly. CARDIOVASCULAR: S1 and S2 present. No murmurs, rubs, or gallops. -PULMONARY: Chest is clear to auscultation, no wheezing , no crackles. Decreased breath sounds on the right flank ABDOMEN: Soft, nontender, nondistended, normoactive bowel sounds. No palpable organomegaly. MUSCULOSKELETAL: No joint swelling or deformity. EXTREMITIES: No cyanosis, clubbing, or pedal edema. NEUROLOGICAL: Gross neurological examination did not reveal any focal deficits. SKIN: No rashes. no petechiae. Results CBC & Chem 7: 07/15/23 03:19 07/15/23 03:19 Labs: Abnormal Lab Results - Last 24 Hours (Table) 07/14/23 07/14/23 07/14/23 Range/Units 19:21 19:21 22:44 WBC 13.2 H (3.8-10.6) k/uL RBC 3.68 L (3.80-5.40) m/uL Hct 33.8 L (34.0-46.0) % Neutrophils # 12.3 H (1.3-7.7) k/uL Lymphocytes # 0.5 L (1.0-4.8) k/uL D-Dimer 1.67 H (<0.60) mg/L FEU Sodium 128 L (137-145) mmol/L Chloride 96 L (98-107) mmol/L BUN 18 H (7-17) mg/dL Creatinine 0.43 L (0.52-1.04) mg/dL Glucose 109 H (74-99) mg/dL Calcium 8.3 L (8.4-10.2) mg/dL Phosphorus (2.5-4.5) mg/dL AST 39 H (14-36) U/L Total Protein 6.0 L (6.3-8.2) g/dL Albumin 3.0 L (3.5-5.0) g/dL 07/15/23 07/15/23 Range/Units 03:19 03:19 WBC 14.2 H (3.8-10.6) k/uL RBC (3.80-5.40) m/uL Hct (34.0-46.0) % Neutrophils # 13.3 H (1.3-7.7) k/uL Lymphocytes # 0.5 L (1.0-4.8) k/uL D-Dimer (<0.60) mg/L FEU Sodium 131 L (137-145) mmol/L Chloride 97 L (98-107) mmol/L BUN (7-17) mg/dL Creatinine (0.52-1.04) mg/dL Glucose 163 H (74-99) mg/dL Calcium (8.4-10.2) mg/dL Phosphorus 4.6 H (2.5-4.5) mg/dL AST 38 H (14-36) U/L Total Protein (6.3-8.2) g/dL Albumin 3.3 L (3.5-5.0) g/dL Assessment and Plan Assessment: Extensive Right lung mass versus consolidation with large right pleural effusion and compressive atelectasis Mediastinal lymphadenopathy Mild hypernatremia Hypertension Hyperlipidemia Chronic heart failure History of coronary artery disease status post stenting Plan: Continue with a breathing treatment Continue with gentle hydration Pulmonary consult Labs and medication were reviewed.. Continue same treatment. Continue with symptomatic treatment. Resume home medication. Monitor labs and vitals. DVT and GI prophylaxis. Further recommendations as per clinical course of the patient DVT prophylaxis: Subcutaneous heparin GI Prophylaxis: Pepcid PT/OT: Pending Prognosis is guarded
[2023-07-15] MEDS: FAMOTIDINE 20 MG/2 ML VIAL IV SCH ×2 (08:36→20:27)
[2023-07-15] MEDS: FUROSEMIDE 20 MG TAB PO SCH (08:36)
[2023-07-15] MEDS: HEPARIN SODIUM,PORCINE 5,000 UNIT/ML 1 ML VIAL SQ SCH ×2 (08:36→20:45)
[2023-07-15] MEDS: lisinopriL 10 MG TAB PO SCH (08:36)
[2023-07-15] MEDS: SODIUM CHLORIDE 0.9% 1,000 ML IV SCH (12:51)
--- NOTE | 2023-07-15 13:25 | P.CNPUL ---
History of Present Illness Consult date: 07/15/23 Reason for consult: lung mass History of present illness: This is a 63-year-old female patient, a chronic smoker started age of 18 and she quit smoking approximately 2 months ago. She presented emergency department was a 3 days history of shortness of breath. CAT scan of the chest was done in the emergency department and the patient was found to have extensive mediastinal lymphadenopathy and this is present in the right paratracheal area, right hilum, subcarinal area and the patient has mass effect with significant narrowing of the distal right main stem bronchus and bronchus intermedius and airways completely occluded past the distal right main stem. As such, the patient has extensive atelectatic changes in the right middle lobe and the right lower lobe with a small right-sided pleural effusion. Presentation is highly suspicious for small cell lung cancer. No evidence of any pulmonary embolism. The patient has of the discomfort of 14.2, sodium is at 131 initially at 128 probably related to SIADH. Troponins are negative. Pro-calcitonin level is at 12.8. She is afebrile. Hemodynamically stable. Pulse ox is 95% liters of oxygen by nasal cannula. No hemoptysis. 20 pounds weight loss. Review of Systems Constitutional: Reports weakness, Reports weight loss Eyes: denies as per HPI, denies blurred vision, denies bulging eye, denies decreased vision, denies diplopia, denies discharge, denies dry eye, denies irritation, denies itching, denies pain, denies photophobia, denies loss of peripheral vision, denies loss of vision, denies tunnel vision/blind spots Ears: deny: decreased hearing, ear discharge, earache, tinnitus Ears, nose, mouth and throat: Reports as per HPI Breasts: absent: as per HPI, change in shape, gynecomastia, masses, nipple discharge, pain, skin changes, swelling Cardiovascular: Reports as per HPI Respiratory: Reports as per HPI, Reports congestion, Reports cough with sputum, Reports dyspnea Gastrointestinal: Reports as per HPI Genitourinary: Reports as per HPI Menstruation: Reports as per HPI Musculoskeletal: Reports as per HPI Musculoskeletal: absent: ankle pain, ankle stiffness, ankle swelling Integumentary: Reports as per HPI Neurological: Reports as per HPI Endocrine: Reports as per HPI Hematologic/Lymphatic: Reports as per HPI Allergic/Immunologic: Reports as per HPI Past Medical History Past Medical History: Coronary Artery Disease (CAD), Heart Failure, GERD/Reflux, Hyperlipidemia, Hypertension, Myocardial Infarction (NM) Additional Past Medical History / Comment(s): VOCAL CORD POLYP Last Myocardial Infarction Date:: 2011 History of Any Multi-Drug Resistant Organisms: None Reported Past Surgical History: Heart Catheterization With Stent, Tonsillectomy, Tubal Ligation Additional Past Surgical History / Comment(s): JHON R.K. SX, VOCAL CHORD POLYPS REMOVED x2 Past Anesthesia/Blood Transfusion Reactions: No Reported Reaction Date of Last Stent Placement:: UNK Past Psychological History: No Psychological Hx Reported Smoking Status: Current every day smoker Past Alcohol Use History: Rare Past Drug Use History: None Reported - Past Family History Sister(s) Family Medical History: Cancer Medications and Allergies Home Medications Medication Instructions Recorded Confirmed Type Aspirin 81 mg PO DAILY 07/29/14 07/14/23 History Carvedilol 25 mg PO BID 07/29/14 07/14/23 History Furosemide [Lasix] 20 mg PO DAILY 07/29/14 07/14/23 History amLODIPine [Norvasc] 5 mg PO BID 07/29/14 07/14/23 History lisinopriL [Zestril] 10 mg PO DAILY 07/29/14 07/14/23 History Atorvastatin [Lipitor] 80 mg PO HS 08/27/14 07/14/23 History Levofloxacin [Levaquin] 500 mg PO DAILY 07/14/23 07/14/23 History Allergies Allergy/AdvReac Type Severity Reaction Status Date / Time No Known Allergies Allergy Verified 07/14/23 19:42 Physical Exam Vitals: Vital Signs Temp Pulse Resp BP Pulse Ox 07/15/23 11:22 86 16 07/15/23 11:15 89 18 07/15/23 08:43 98.7 F 99 18 139/87 94 L 07/15/23 08:04 99 18 07/15/23 07:56 93 18 98 07/15/23 06:23 89 16 98/62 96 07/15/23 05:24 91 07/15/23 05:12 90 07/15/23 02:30 94 17 113/63 95 07/15/23 01:30 93 18 103/61 95 07/15/23 01:14 95 07/15/23 01:00 90 19 119/70 95 07/15/23 00:34 87 07/15/23 00:30 87 19 112/67 98 07/15/23 00:25 91 07/15/23 00:00 89 20 105/66 96 07/14/23 22:00 90 20 121/64 95 07/14/23 21:30 87 20 118/72 95 07/14/23 21:00 86 18 111/72 96 07/14/23 20:00 96/62 07/14/23 19:41 87 07/14/23 19:30 85 18 94/57 98 07/14/23 19:28 86 07/14/23 19:00 85 118/65 95 07/14/23 18:45 22 07/14/23 18:43 98.1 F 89 22 118/65 96 07/14/23 18:40 118/65 96 Intake and Output 07/14/23 07/15/23 07/15/23 22:59 06:59 14:59 Other: Weight 72.575 kg GENERAL: The patient is alert and oriented x3, not in any acute distress. Well developed, well nourished. The patient is currently on 2 L of oxygen by nasal cannula Head exam was generally normal. There was no scleral icterus or corneal arcus. Mucous membranes were moist. HEENT: Pupils are round and equally reacting to light. EOMI. No scleral icterus. No conjunctival pallor. Normocephalic, atraumatic. No pharyngeal erythema. No thyromegaly. CARDIOVASCULAR: S1 and S2 present. No murmurs, rubs, or gallops. -PULMONARY: Chest is clear to auscultation, no wheezing , no crackles. Decreased breath sounds on the right flank ABDOMEN: Soft, nontender, nondistended, normoactive bowel sounds. No palpable organomegaly. MUSCULOSKELETAL: No joint swelling or deformity. EXTREMITIES: No cyanosis, clubbing, or pedal edema. NEUROLOGICAL: Gross neurological examination did not reveal any focal deficits. SKIN: No rashes. no petechiae. Results - Laboratory Findings CBC and BMP: 07/15/23 03:19 07/15/23 03:19 PT/INR, D-dimer PT 11.5 sec (10.0-12.5) 07/14/23 19:21 INR 1.1 (<1.2) 07/14/23 19:21 D-Dimer 1.67 mg/L FEU (<0.60) H 07/14/23 19:21 Abnormal lab findings: Abnormal Labs 07/14/23 07/14/23 07/14/23 19:21 19:21 22:44 WBC 13.2 H RBC 3.68 L Hct 33.8 L Neutrophils # 12.3 H Lymphocytes # 0.5 L D-Dimer 1.67 H Sodium 128 L Chloride 96 L BUN 18 H Creatinine 0.43 L Glucose 109 H Calcium 8.3 L Phosphorus AST 39 H Total Protein 6.0 L Albumin 3.0 L 07/15/23 07/15/23 03:19 03:19 WBC 14.2 H RBC Hct Neutrophils # 13.3 H Lymphocytes # 0.5 L D-Dimer Sodium 131 L Chloride 97 L BUN Creatinine Glucose 163 H Calcium Phosphorus 4.6 H AST 38 H Total Protein Albumin 3.3 L - Diagnostic Findings Chest x-ray: image reviewed CT scan - chest: image reviewed Assessment and Plan Plan: Mediastinal mass involving the right paratracheal area extending into the subcarinal area causing mass effect and complete occlusion of the right distal main stem bronchus and bronchus intermedius and causing atelectasis of the right middle lobe and the right lower lobe with a small right-sided pleural effusion. Findings are highly suspicious for a small cell lung cancer. The mass most likely originated from the hilar and caused significant local progression and mass effect involving the right main stem distally and bronchus intermedius Hyponatremia with a sodium level 128, rule out underlying SIADH Elevated pro-calcitonin level, consider possibility of postobstructive pneumonia involving the right lung Chronic smoker Coronary artery disease, prior stenting of the LAD Hypertension Hyperlipidemia Shortness of breath secondary to above Acute hypoxic respiratory failure secondary to above Plan Explained the findings with the patient The findings are highly suspicious for lung cancer, possibly small cell lung cancer The patient will need a bronchoscopy. Suggest evaluation of the right mainstem bronchus should there be any endobronchial lesion. If not, the patient will need EBUS enbronchial ultrasound and biopsy of the mediastinal lymphadenopathy/mass. This will be coordinated with the pulmonary team during this current admission Add IV Zosyn for a potential postobstructive pneumonia Thoracentesis may not be of any value as the patient's right middle lobe and the right lower lobe atelectatic secondary to a mediastinal/hilar mass causing complete obstruction of the right mainstem bronchus/bronchus intermedius. Fluid restriction Monitor sodium level monitor pro-calcitonin We'll continue to follow
[2023-07-15] MEDS: PIPERACILLIN-TAZOBACTAM 3.375 GM in SODIUM CHLORIDE 0.9% 100 ML IVPB SCH ×2 (17:32→23:23)
[2023-07-15] MEDS: ATORVASTATIN 80 MG TAB PO SCH (20:25)
[2023-07-16] MEDS: SODIUM CHLORIDE 0.9% 1,000 ML IV SCH ×2 (01:06→13:05)
[2023-07-16] MEDS ORDERED: ALPRAZolam 0.25 MG TAB PO STA (03:14)
[2023-07-16] MEDS: ALBUTEROL NEBULIZED 2.5 MG/3 ML INHALATION SCH ×4 (07:36→19:48)
[2023-07-16] MEDS: ASPIRIN 81 MG PO SCH (08:28)
[2023-07-16] MEDS: PIPERACILLIN-TAZOBACTAM 3.375 GM in SODIUM CHLORIDE 0.9% 100 ML IVPB SCH ×3 (08:28→23:40)
[2023-07-16] MEDS: carvediloL 12.5 MG TAB PO SCH ×2 (08:28→17:56)
[2023-07-16] MEDS: amLODIPine 5 MG TAB PO SCH ×2 (08:28→20:09)
[2023-07-16] MEDS: lisinopriL 10 MG TAB PO SCH (08:28)
[2023-07-16] MEDS: FUROSEMIDE 20 MG TAB PO SCH (08:28)
[2023-07-16] MEDS: FAMOTIDINE 20 MG/2 ML VIAL IV SCH ×2 (08:28→20:09)
[2023-07-16] MEDS: HEPARIN SODIUM,PORCINE 5,000 UNIT/ML 1 ML VIAL SQ SCH ×2 (08:29→20:09)
[2023-07-16] MEDS: ALPRAZolam 0.5 MG TAB PO PRN ×2 (11:14→20:09)
--- NOTE | 2023-07-16 11:44 | P.PN ---
Subjective This is a pleasant 63 years old female with past medical history of Coronary Artery Disease s/p stenting, Heart Failure, GERD/Reflux, Hyperlipidemia, Hypertension, her PCP is Dr. Navarrete and roustabout Dr. Neff for her history of coronary artery disease status post stent Patient presents because of worsening dyspnea over 3 days especially with exertion she has to stop to catch up with her breath. No significant chest pain and no significant coughing No other urinary GI symptoms. No dizziness weakness or numbness. She quit smoking about 2 months ago, lately she used to smoke 5 cigarettes per day. No alcohol or illicit drugs. She is hemodynamically stable, afebrile saturating well on 2 L oxygen via nasal cannula Labs showed mild leukocytosis of 13 and 14,000. Sodium markedly low at 1.8 and 131. ProBNP is low at 178. Troponin were unremarkable. Labs including CBC, BMP liver enzymes are unremarkable EKG showing normal sinus rhythm at 85 CT of the lung showing normal pulmonary embolism and rule out right pleural effusion with right lung consolidation suspicious for a mass. 07/16/2023 Patient is awake and alert. He is getting breathing treatments, she is mild respiratory distress while she is sitting in her chair. Her pro-calcitonin significantly elevated at 12.8. Currently she is covered with IV Zosyn and normal saline 75 mL/h. Plan for bronchoscopy tomorrow as patient is highly suspicious for lung cancer We'll give Xanax when necessary for anxiety Objective - Vital Signs Vital signs: Vital Signs Temp 97.6 F 07/16/23 07:53 Pulse 96 07/16/23 11:36 Resp 16 07/16/23 07:53 BP 125/62 07/16/23 07:53 Pulse Ox 96 07/16/23 07:53 FiO2 Intake & Output 07/15/23 07/16/23 07/16/23 18:59 06:59 18:59 Weight 72.575 kg Other: Voiding Method External Catheter - Exam GENERAL: The patient is alert and oriented x3, not in any acute distress. Well developed, well nourished. HEENT: Pupils are round and equally reacting to light. EOMI. No scleral icterus. No conjunctival pallor. Normocephalic, atraumatic. No pharyngeal erythema. No thyromegaly. CARDIOVASCULAR: S1 and S2 present. No murmurs, rubs, or gallops. -PULMONARY: Chest is clear to auscultation, no wheezing , no crackles. Decreased breath sounds on the right lung ABDOMEN: Soft, nontender, nondistended, normoactive bowel sounds. No palpable organomegaly. MUSCULOSKELETAL: No joint swelling or deformity. EXTREMITIES: No cyanosis, clubbing, or pedal edema. NEUROLOGICAL: Gross neurological examination did not reveal any focal deficits. SKIN: No rashes. no petechiae. - Labs CBC & Chem 7: 07/15/23 03:19 07/15/23 03:19 Labs: Abnormal Lab Results - Last 24 Hours (Table) 07/15/23 Range/Units 03:19 Procalcitonin 12.80 H (0.02-0.09) ng/mL Assessment and Plan Assessment: Extensive Right lung mass versus consolidation with large right pleural effusion and compressive atelectasis Mediastinal lymphadenopathy Mild hypernatremia post obstructive pneumonia Hypertension Hyperlipidemia Chronic heart failure History of coronary artery disease status post stenting Plan: Continue with a breathing treatment Continue with gentle hydration Pulmonary consult Continue with Zosyn Labs and medication were reviewed.. Continue same treatment. Continue with symptomatic treatment. Resume home medication. Monitor labs and vitals. DVT and GI prophylaxis. Further recommendations as per clinical course of the patient DVT prophylaxis: Subcutaneous heparin GI Prophylaxis: Pepcid PT/OT: Pending Prognosis is guarded
--- NOTE | 2023-07-16 15:08 | P.PN ---
Subjective Progress Note Date: 07/16/23 This is a 63-year-old female patient, a chronic smoker started age of 18 and she quit smoking approximately 2 months ago. She presented emergency department was a 3 days history of shortness of breath. CAT scan of the chest was done in the emergency department and the patient was found to have extensive mediastinal lymphadenopathy and this is present in the right paratracheal area, right hilum, subcarinal area and the patient has mass effect with significant narrowing of the distal right main stem bronchus and bronchus intermedius and airways completely occluded past the distal right main stem. As such, the patient has extensive atelectatic changes in the right middle lobe and the right lower lobe with a small right-sided pleural effusion. Presentation is highly suspicious for small cell lung cancer. No evidence of any pulmonary embolism. The patient has of the discomfort of 14.2, sodium is at 131 initially at 128 probably related to SIADH. Troponins are negative. Pro-calcitonin level is at 12.8. She is afebrile. Hemodynamically stable. Pulse ox is 95% liters of oxygen by nasal cannula. No hemoptysis. 20 pounds weight loss. The patient is seen today 07/16/2023 in follow-up on the regular medical floor. She is awake and alert in no acute distress. She is maintaining good O2 saturations in the mid 90s on 2 L/m per nasal cannula. She's afebrile. Hemodynamically stable. No new labs today. She is continued on Zosyn. Heparin for DVT prophylaxis. Normal saline at 75 ML's per hour. Based on the above mentioned computed tomography scan findings we will plan for bronchoscopy and probable biopsies tomorrow. Objective - Vital Signs Vital signs: Vital Signs Temp 97.5 F L 07/16/23 12:45 Pulse 92 07/16/23 14:52 Resp 18 07/16/23 12:45 BP 92/57 07/16/23 12:45 Pulse Ox 95 07/16/23 12:45 FiO2 Intake & Output 07/15/23 07/16/23 07/16/23 18:59 06:59 18:59 Weight 72.575 kg Other: Voiding Method External Catheter - Exam GENERAL: The patient is a pleasant 63-year-old female, alert and oriented x3, not in any acute distress. Currently on 2 L of oxygen by nasal cannula Head exam was generally normal. There was no scleral icterus or corneal arcus. Mucous membranes were moist. HEENT: Pupils are round and equally reacting to light. EOMI. No scleral icterus. No conjunctival pallor. Normocephalic, atraumatic. No pharyngeal erythema. No thyromegaly. CARDIOVASCULAR: S1 and S2 present. No murmurs, rubs, or gallops. PULMONARY: Chest is clear on the left. Few scattered rhonchi and decreased breath sounds on the right. ABDOMEN: Soft, nontender, nondistended, normoactive bowel sounds. No palpable organomegaly. MUSCULOSKELETAL: No joint swelling or deformity. EXTREMITIES: No cyanosis, clubbing, or pedal edema. Peripheral pulses intact NEUROLOGICAL: Gross neurological examination did not reveal any focal deficits. SKIN: No rashes. no petechiae. - Labs CBC & Chem 7: 07/15/23 03:19 07/15/23 03:19 Assessment and Plan Assessment: Mediastinal mass involving the right paratracheal area extending into the subcarinal area causing mass effect and complete occlusion of the right distal main stem bronchus and bronchus intermedius and causing atelectasis of the right middle lobe and the right lower lobe with a small right-sided pleural effusion. Findings are highly suspicious for a small cell lung cancer. The mass most likely originated from the hilar and caused significant local progression and mass effect involving the right main stem distally and bronchus intermedius Hyponatremia with a sodium level 128, rule out underlying SIADH, improving currently 131 Elevated pro-calcitonin level, consider possibility of postobstructive pneumonia involving the right lung area currently on Zosyn Chronic smoker Coronary artery disease, prior stenting of the LAD Hypertension Hyperlipidemia Shortness of breath secondary to above Acute hypoxic respiratory failure secondary to above Plan: The patient was seen and evaluated Medications and computed tomography scan reviewed We'll plan for bronchoscopy with biopsies tomorrow Nothing by mouth after midnight The patient is agreeable to the plan We will continue to follow I have personally seen and examined the patient, performed the documentation and the assessment and plan as written. Number of minutes spent on the visit: 10.
[2023-07-16] MEDS: ATORVASTATIN 80 MG TAB PO SCH (20:09)
[2023-07-17] MEDS: SODIUM CHLORIDE 0.9% 1,000 ML IV SCH ×2 (04:10→21:30)
[2023-07-17] MEDS: ASPIRIN 81 MG PO SCH (07:52)
[2023-07-17] MEDS: ALPRAZolam 0.5 MG TAB PO PRN (07:55)
[2023-07-17] MEDS: PIPERACILLIN-TAZOBACTAM 3.375 GM in SODIUM CHLORIDE 0.9% 100 ML IVPB SCH ×3 (07:55→23:49)
[2023-07-17] MEDS: FAMOTIDINE 20 MG/2 ML VIAL IV SCH ×2 (07:55→21:29)
[2023-07-17] MEDS: ALBUTEROL NEBULIZED 2.5 MG/3 ML INHALATION SCH ×4 (08:14→19:29)
[2023-07-17] MEDS: HEPARIN SODIUM,PORCINE 5,000 UNIT/ML 1 ML VIAL SQ SCH ×2 (08:57→21:30)
[2023-07-17] MEDS: carvediloL 12.5 MG TAB PO SCH ×2 (09:32→17:12)
[2023-07-17] MEDS: amLODIPine 5 MG TAB PO SCH ×2 (09:32→21:29)
[2023-07-17] MEDS: FUROSEMIDE 20 MG TAB PO SCH (09:33)
[2023-07-17] MEDS: lisinopriL 10 MG TAB PO SCH (09:33)
[2023-07-17 11:12] LABS: HCT 35.7 % (37.2-46.3); HGB 11.3 d/dL (12.0-15.0); MCHC 31.7 d/dL (32.0-37.0); MCV 94.7 FL (80.0-97.0); Mean Platelet Volume 9.3 FL (9.5-12.2); NRBC Per 100 WBC 0 X 10*3/uL (0.00-0.01); Platelet Count 517 X 10*3/uL (140-440); RBC 3.77 X 10*6/uL (4.10-5.20); RDW 13.8 % (11.5-14.5)
[2023-07-17 11:17] LABS: Blood Urea Nitrogen 17.1 mg/dL (9.0-27.0); Calcium 8.9 mg/dL (8.7-10.3); Carbon Dioxide 28.1 mmol/L (21.6-31.8); Chloride 101 mmol/L (96-109); Glucose 104 mg/dL (70-110); Potassium 4.1 mmol/L (3.5-5.5); Sodium 140 mmol/L (135-145)
--- NOTE | 2023-07-17 11:45 | P.PN ---
Subjective This is a pleasant 63 years old female with past medical history of Coronary Artery Disease s/p stenting, Heart Failure, GERD/Reflux, Hyperlipidemia, Hypertension, her PCP is Dr. Navarrete and behavioral sciences department chair Dr. Neff for her history of coronary artery disease status post stent Patient presents because of worsening dyspnea over 3 days especially with exertion she has to stop to catch up with her breath. No significant chest pain and no significant coughing No other urinary GI symptoms. No dizziness weakness or numbness. She quit smoking about 2 months ago, lately she used to smoke 5 cigarettes per day. No alcohol or illicit drugs. She is hemodynamically stable, afebrile saturating well on 2 L oxygen via nasal cannula Labs showed mild leukocytosis of 13 and 14,000. Sodium markedly low at 1.8 and 131. ProBNP is low at 178. Troponin were unremarkable. Labs including CBC, BMP liver enzymes are unremarkable EKG showing normal sinus rhythm at 85 CT of the lung showing normal pulmonary embolism and rule out right pleural effusion with right lung consolidation suspicious for a mass. 07/16/2023 Patient is awake and alert. He is getting breathing treatments, she is mild respiratory distress while she is sitting in her chair. Her pro-calcitonin significantly elevated at 12.8. Currently she is covered with IV Zosyn and normal saline 75 mL/h. Plan for bronchoscopy tomorrow as patient is highly suspicious for lung cancer We'll give Xanax when necessary for anxiety 07/17/2023 patient has more respiratory difficulty today and she has some difficulty talking. While she was sitting in bed. She is mildly tachycardic. Heart rhythm rate 20-24, she is saturating 97% on 3 L oxygen via nasal cannula. WBC 12,000, sodium is normal at 140. Pulmonary team are planning for bronchoscopy today and possible biopsy for her right lung mass Objective - Vital Signs Vital signs: Vital Signs Temp 97.9 F 07/17/23 07:40 Pulse 104 H 07/17/23 08:28 Resp 20 07/17/23 07:45 BP 121/74 07/17/23 07:40 Pulse Ox 97 07/17/23 07:40 FiO2 Intake & Output 07/16/23 07/17/23 07/17/23 18:59 06:59 18:59 Intake Total 120 Output Total 500 300 Balance -500 -180 Intake: Oral 120 Output: Urine 500 300 Other: Voiding Method Bedside Commode Bedside Commode External Catheter # Voids 1 - Exam GENERAL: The patient is alert and oriented x3, not in any acute distress. Well developed, well nourished. HEENT: Pupils are round and equally reacting to light. EOMI. No scleral icterus. No conjunctival pallor. Normocephalic, atraumatic. No pharyngeal erythema. No thyromegaly. CARDIOVASCULAR: S1 and S2 present. No murmurs, rubs, or gallops. -PULMONARY: Chest is clear to auscultation, no wheezing , no crackles. Decreased breath sounds on the right lung ABDOMEN: Soft, nontender, nondistended, normoactive bowel sounds. No palpable organomegaly. MUSCULOSKELETAL: No joint swelling or deformity. EXTREMITIES: No cyanosis, clubbing, or pedal edema. NEUROLOGICAL: Gross neurological examination did not reveal any focal deficits. SKIN: No rashes. no petechiae. - Labs CBC & Chem 7: 07/17/23 06:38 07/17/23 06:38 Labs: Abnormal Lab Results - Last 24 Hours (Table) 07/17/23 07/17/23 Range/Units 06:38 06:38 WBC 12.80 H (4.50-10.00) X 10*3/uL RBC 3.77 L (4.10-5.20) X 10*6/uL Hgb 11.3 L (12.0-15.0) d/dL Hct 35.7 L (37.2-46.3) % MCHC 31.7 L (32.0-37.0) d/dL Plt Count 517 H (140-440) X 10*3/uL MPV 9.3 L (9.5-12.2) FL BUN/Creatinine Ratio 28.50 H (12.00-20.00) Ratio Microbiology - Last 24 Hours (Table) 07/15/23 17:00 Blood Culture - Preliminary Blood 07/15/23 17:15 Blood Culture - Preliminary Blood Assessment and Plan Assessment: Extensive Right lung mass versus consolidation with large right pleural effusion and compressive atelectasis Mediastinal lymphadenopathy Mild hypernatremia post obstructive pneumonia Hypertension Hyperlipidemia Chronic heart failure History of coronary artery disease status post stenting Plan: Continue with a breathing treatment Continue with gentle hydration Pulmonary consult Continue with Zosyn Labs and medication were reviewed.. Continue same treatment. Continue with symptomatic treatment. Resume home medication. Monitor labs and vitals. DVT and GI prophylaxis. Further recommendations as per clinical course of the patient DVT prophylaxis: Subcutaneous heparin GI Prophylaxis: Pepcid PT/OT: Pending Prognosis is guarded
[2023-07-17 11:57] LABS: Basophils # (A) 0.04 X 10*3/uL (0.00-0.10); Basophils % (A) 0.3 %; Eosinophils # (A) 0.04 X 10*3/uL (0.04-0.35); Eosinophils % (A) 0.3 %; Lymphocytes # (A) 1.31 X 10*3/uL (0.90-5.00); Lymphocytes % (A) 10.2 %; Monocytes # (A) 1.52 X 10*3/uL (0.20-1.00); Monocytes % (A) 11.9 %; Neutrophils # (A) 9.83 X 10*3/uL (1.80-7.70); Neutrophils % (A) 76.8 %
--- NOTE | 2023-07-17 12:00 | P.PN ---
Subjective Progress Note Date: 07/17/23 This is a 63-year-old female patient, a chronic smoker started age of 18 and she quit smoking approximately 2 months ago. She presented emergency department was a 3 days history of shortness of breath. CAT scan of the chest was done in the emergency department and the patient was found to have extensive mediastinal lymphadenopathy and this is present in the right paratracheal area, right hilum, subcarinal area and the patient has mass effect with significant narrowing of the distal right main stem bronchus and bronchus intermedius and airways completely occluded past the distal right main stem. As such, the patient has extensive atelectatic changes in the right middle lobe and the right lower lobe with a small right-sided pleural effusion. Presentation is highly suspicious for small cell lung cancer. No evidence of any pulmonary embolism. The patient has of the discomfort of 14.2, sodium is at 131 initially at 128 probably related to SIADH. Troponins are negative. Pro-calcitonin level is at 12.8. She is afebrile. Hemodynamically stable. Pulse ox is 95% liters of oxygen by nasal cannula. No hemoptysis. 20 pounds weight loss. The patient is seen today 07/16/2023 in follow-up on the regular medical floor. She is awake and alert in no acute distress. She is maintaining good O2 saturations in the mid 90s on 2 L/m per nasal cannula. She's afebrile. Hemodynamically stable. No new labs today. She is continued on Zosyn. Heparin for DVT prophylaxis. Normal saline at 75 ML's per hour. Based on the above mentioned computed tomography scan findings we will plan for bronchoscopy and probable biopsies tomorrow. The patient is seen today 07/17/2023 in follow-up on the regular medical floor. She is currently sitting up in a chair at the bedside. Awake and alert in no acute distress. She is maintaining O2 saturations in the 90s on 3 L/m per nasal cannula. She's been afebrile. Hemodynamically stable. Blood cultures reveal no growth. White count 12.8. Hemoglobin 11.3. Platelets 517. Sodium 140. Potassium 4.1. Bicarb 28. BUN 17. Creatinine 0.6. Glucose 104. Remains on antibiotics in form of Zosyn. Plan is for bronchoscopy with biopsies today Objective - Vital Signs Vital signs: Vital Signs Temp 97.9 F 07/17/23 07:40 Pulse 104 H 07/17/23 08:28 Resp 20 07/17/23 07:45 BP 121/74 07/17/23 07:40 Pulse Ox 97 07/17/23 07:40 FiO2 Intake & Output 07/16/23 07/17/23 07/17/23 18:59 06:59 18:59 Intake Total 120 Output Total 500 300 Balance -500 -180 Intake: Oral 120 Output: Urine 500 300 Other: Voiding Method Bedside Commode Bedside Commode External Catheter # Voids 1 - Exam GENERAL EXAM: Alert, pleasant 63-year-old female, up in a chair, on 3 L nasal cannula, comfortable in no apparent distress. HEAD: Normocephalic. EYES: Normal reaction of pupils, equal size. NOSE: Clear with pink turbinates. THROAT: No erythema or exudates. NECK: No masses, no JVD. CHEST: No chest wall deformity. LUNGS: Equal air entry with diminished breath sounds throughout the right lung. Left lung is clear. CVS: S1 and S2 normal with no audible murmur, regular rhythm. ABDOMEN: No hepatosplenomegaly, normal bowel sounds, no guarding or rigidity. SPINE: No scoliosis or deformity SKIN: No rashes CENTRAL NERVOUS SYSTEM: No focal deficits, tone is normal in all 4 extremities. EXTREMITIES: There is no peripheral edema. No clubbing, no cyanosis. Peripheral pulses are intact. - Labs CBC & Chem 7: 07/17/23 06:38 07/17/23 06:38 Labs: Abnormal Lab Results - Last 24 Hours (Table) 07/17/23 07/17/23 Range/Units 06:38 06:38 WBC 12.80 H (4.50-10.00) X 10*3/uL RBC 3.77 L (4.10-5.20) X 10*6/uL Hgb 11.3 L (12.0-15.0) d/dL Hct 35.7 L (37.2-46.3) % MCHC 31.7 L (32.0-37.0) d/dL Plt Count 517 H (140-440) X 10*3/uL MPV 9.3 L (9.5-12.2) FL BUN/Creatinine Ratio 28.50 H (12.00-20.00) Ratio Microbiology - Last 24 Hours (Table) 07/15/23 17:00 Blood Culture - Preliminary Blood 07/15/23 17:15 Blood Culture - Preliminary Blood Assessment and Plan Assessment: Mediastinal mass involving the right paratracheal area extending into the subcarinal area causing mass effect and complete occlusion of the right distal main stem bronchus and bronchus intermedius and causing atelectasis of the right middle lobe and the right lower lobe with a small right-sided pleural effusion. Findings are highly suspicious for a small cell lung cancer. The mass most likely originated from the hilar and caused significant local progression and mass effect involving the right main stem distally and bronchus intermedius. Hyponatremia with a sodium level 128, rule out underlying SIADH, improving currently 131 Elevated pro-calcitonin level, consider possibility of postobstructive pneumonia involving the right lung area currently on Zosyn Chronic smoker Coronary artery disease, prior stenting of the LAD Hypertension Hyperlipidemia Shortness of breath secondary to above Acute hypoxic respiratory failure secondary to above Plan: The patient was seen and evaluated Medications and labs reviewed We'll plan for bronchoscopy with biopsies today The patient is agreeable to the plan Continue Zosyn and bronchodilators We will continue to follow I have personally seen and examined the patient, performed the documentation and the assessment and plan as written. Number of minutes spent on the visit: 10.
[2023-07-17] MEDS ORDERED: LACTATED RINGERS 1,000 ML IV ONE ×2 (12:30)
[2023-07-17] MEDS ORDERED: ALBUTEROL INHALER 60 PUFF/8 GM INHALER (MHU) INHALATION ONE (12:47)
[2023-07-17] MEDS ORDERED: LIDOCAINE 1% INJ 10MG/ML (20 ML MDV) ONE (12:47)
[2023-07-17] MEDS ORDERED: PROPOFOL 10 MG/ML 20 ML VIAL IV ONE (12:47)
[2023-07-17] MEDS ORDERED: ETOMIDATE 2 MG/ML 10 ML VIAL ONE (12:47)
[2023-07-17] MEDS ORDERED: SUCCINYLCHOLINE CHLORIDE 200 MG/10 ML VIAL IV ONE (12:47)
[2023-07-17] MEDS ORDERED: PHENYLEPHRINE 10 MG/ML 5 ML VIAL ONE (12:47)
[2023-07-17] MEDS ORDERED: ALBUTEROL NEBULIZED 2.5 MG/3 ML INHALATION ONE (13:33)
[2023-07-17 14:08] LABS: Glucose,Whole Blood 137 mg/dL (70-110)
--- NOTE | 2023-07-17 14:22 | OP ---
OPERATIVE REPORT DATE OF SERVICE : PROCEDURES PERFORMED: Bronchoscopy, multiple endobronchial biopsies of endobronchial tumor involving the right mainstem bronchus and involving the right upper lobe bronchus with complete occlusion of both. Brushings of endobronchial tumor from the right mainstem bronchus. Washing of right mainstem bronchus, endobronchial tumor, and Francis needle aspiration of transcarinal lymph node/zone 4R. ANESTHESIA USED: General anesthesia. preoperative diagnosis Complete opacification of the right lung with suggestion of endobronchial tumor involving the right mainstem bronchus. POSTOPERATIVE DIAGNOSES: Endobronchial tumor involving right mainstem bronchus with complete occlusion of the right main stem and right upper lobe bronchus and also carinal involvement noted. DESCRIPTION OF PROCEDURE: The patient was brought in to the bronchoscopy suite, she was evaluated by anesthesia, she underwent intubation and placed on mechanical ventilation. Then as the patient was sedated, the bronchoscope was advanced through the adapter of the endotracheal tube down to the distal trachea, and as soon as the enrike was visualized, there was clearly carinal involvement in what seems to be a large cauliflower lesion involving the enrike, also involving the right mainstem bronchus, and the right upper lobe bronchus completely occluding the right mainstem and the left upper lobe bronchus. The left side was noted to be unremarkable, left side was examined. There was no evidence of any endobronchial pathology or tumors or any involvement on the left side. Then multiple endobronchial biopsies were done with direct visualization from the right mainstem bronchus. These biopsies were sent for different diagnostic studies. Then, washings were also done, brushings of the endobronchial tumor from the right mainstem bronchus was also done. Then, using a Francis needle, 1 transtracheal needle aspiration was performed, and this was from the zone 4R lymph nodes. Procedure was well tolerated, no complications. Bleeding was extremely minimal and negligible. The patient tolerated the procedure well, and the specimen was sent for different diagnostic studies. MMODL / IJN: [id number] /
--- NOTE | 2023-07-17 14:46 | P.PN ---
Progress Note - Text Progress Note Date: 07/17/23 This is an addendum note to the previous note done earlier today. Patient underwent bronchoscopy and there was evidence of complete obstruction of the right mainstem bronchus and right upper lobe bronchus, there was evidence of endobronchial tumor, cauliflower-shaped tumor involving the enrike, right upper lobe bronchus, right mainstem bronchus, and there was no visualization of the right upper lobe or right middle lobe or right lower lobe. Procedure was done, patient underwent multiple biopsies of the endobronchial tumor, brushings were done, au needle aspiration of 4R lymph node done. The procedure was well- tolerated, however the patient was extubated in the recovery room, however she had to be reintubated because she was acting confused and her O2 saturations were running low. Patient was placed back on mechanical ventilation with assist control rate of 24, tidal volume to 50, FiO2 on the percent, PEEP of 5. Patient will be transferred to the ICU, she would be kept on mechanical ventilation tonight, and will likely address weaning and extubation to BiPAP in the next 24 hours. Patient does have significant underlying COPD and I believe extubating the patient to BiPAP would be reasonable. In the meantime we will support the patient on mechanical ventilation, and we will address weaning and extubation in the next 24 hours.
[2023-07-17 15:09] LABS: ABG Base Excess 4.1 mmol/L; ABG HCO3 30 mmol/L (21-25); ABG Oxygen Saturation 96.9 % (94-97); ABG PCO2 59 mmHg (35-45); ABG PH 7.32 (7.35-7.45); ABG PO2 92 mmHg (83-108); ABG TCO2 32 mmol/L (19-24); Allen Test Performed? Yes
[2023-07-17] MEDS ORDERED: SODIUM CHLORIDE 0.9% 500 ML 500 ML IV ONE (15:11)
--- NOTE | 2023-07-17 15:18 | XR ---
EXAMINATION TYPE: XR chest 1V portable DATE OF EXAM: 07/17/2023 COMPARISON: 07/06/2023 INDICATION: ET tube placement post bronchoscopy TECHNIQUE: Single frontal view of the chest is obtained. FINDINGS: The heart size is normal. The pulmonary vasculature is normal. There is opacification of the right lung. No pneumothorax is evident. Placement of an endotracheal tube with the tip 1.3 cm above the enrike. Nasogastric tube transverses the thorax with tip in the left upper quadrant of the abdomen. IMPRESSION: 1. Endotracheal tube tip 1.3 cm above the enrike. Nasogastric tube tip within stomach. 2. Continued opacification through the right lung
[2023-07-17] MEDS ORDERED: SODIUM CHLORIDE 0.9% 1,000 ML IV ONE (15:20)
[2023-07-17] MEDS: ATORVASTATIN 80 MG TAB PO SCH (21:29)
[2023-07-17] MEDS: CHLORHEXIDINE GLUCONATE 15 ML CUP MUCOUS MEM SCH (21:30)
[2023-07-18] MEDS: SODIUM CHLORIDE 0.9% 1,000 ML IV SCH ×2 (05:21→14:43)
[2023-07-18 05:46] LABS: ABG Base Excess 5.6 mmol/L; ABG HCO3 31 mmol/L (21-25); ABG Oxygen Saturation 95.7 % (94-97); ABG PCO2 50 mmHg (35-45); ABG PO2 79 mmHg (83-108); ABG TCO2 32 mmol/L (19-24); Allen Test Performed? Yes
[2023-07-18 06:11] LABS: Basophils % (A) 0 %; Eosinophils # (A) 0.1 k/uL (0-0.7); Eosinophils % (A) 0 %; HCT 32.2 % (34.0-46.0); HGB 10.5 gm/dL (11.4-16.0); Lymphocytes # (A) 0.8 k/uL (1.0-4.8); Lymphocytes % (A) 6 %; MCH 30.9 pg (25.0-35.0); MCHC 32.7 g/dL (31.0-37.0); MCV 94.6 fL (80.0-100.0); Mean Platelet Volume 6.9; Monocytes # (A) 0.9 k/uL (0-1.0); Monocytes % (A) 7 %; Neutrophils # (A) 11.5 k/uL (1.3-7.7); Neutrophils % (A) 86 %; Platelet Count 484 k/uL (150-450); RBC 3.41 m/uL (3.80-5.40); RDW 13.3 % (11.5-15.5); WBC 13.3 k/uL (3.8-10.6)
[2023-07-18 06:20] LABS: African American GFR (CKD) >90 (>60 ml/min/1.73 sqM); Anion Gap 7 mmol/L; Blood Urea Nitrogen 16 mg/dL (7-17); Calcium 8.5 mg/dL (8.4-10.2); Carbon Dioxide 29 mmol/L (22-30); Chloride 104 mmol/L (98-107); Glucose 109 mg/dL (74-99); Non-African American GFR(CKD) >90 (>60 ml/min/1.73 sqM); Potassium 4.2 mmol/L (3.5-5.1); Sodium 140 mmol/L (137-145)
[2023-07-18] MEDS: carvediloL 12.5 MG TAB PO SCH ×2 (06:54→16:29)
--- NOTE | 2023-07-18 07:07 | XR ---
EXAMINATION TYPE: XR chest 1V portable DATE OF EXAM: 07/18/2023 5:15 AM COMPARISON: Chest radiographs from 07/17/2023 TECHNIQUE: XR chest 1V portable Portable AP radiograph of the chest. CLINICAL INDICATION:Female, 63 years old with history of Tube placement; FINDINGS: Patient is rotated was also evaluated him. Lungs/Pleura: Complete opacification of the right hemithorax again demonstrated. Left hemithorax is c lear. No pneumothorax. Pulmonary vascularity: Unremarkable. Heart/mediastinum: Cardiomediastinal silhouette is partially obscured due to overlying and adjacent o pacities. Musculoskeletal: No acute osseous pathology. Other findings: None Lines/Tubes: Endotracheal tube with distal tip 3.8 cm above the enrike Nasogastric tube with its distal tip projecting over the stomach and sidehole at the GE junction. IMPRESSION: 1. Complete opacification of the right hemithorax redemonstrated likely representing a combination o f pleural effusion and atelectasis/consolidation. 2. Appropriate position of endotracheal tube. 3. NG tube with sidehole at the GE junction. Recommend advancement of approximately 4 cm.
[2023-07-18] MEDS: ALBUTEROL NEBULIZED 2.5 MG/3 ML INHALATION SCH ×4 (07:46→20:23)
[2023-07-18] MEDS: lisinopriL 10 MG TAB PO SCH (08:50)
[2023-07-18] MEDS: FUROSEMIDE 20 MG TAB PO SCH (08:50)
[2023-07-18] MEDS: HEPARIN SODIUM,PORCINE 5,000 UNIT/ML 1 ML VIAL SQ SCH ×2 (08:50→19:42)
[2023-07-18] MEDS: amLODIPine 5 MG TAB PO SCH (08:50)
[2023-07-18] MEDS: FAMOTIDINE 20 MG/2 ML VIAL IV SCH (08:51)
[2023-07-18] MEDS: ASPIRIN 81 MG PO SCH (08:52)
[2023-07-18] MEDS: CHLORHEXIDINE GLUCONATE 15 ML CUP MUCOUS MEM SCH (08:52)
[2023-07-18] MEDS: PIPERACILLIN-TAZOBACTAM 3.375 GM in SODIUM CHLORIDE 0.9% 100 ML IVPB SCH ×2 (08:52→15:37)
--- NOTE | 2023-07-18 10:55 | P.PN ---
Subjective Progress Note Date: 07/18/23 Principal diagnosis: lung mass This is a 63-year-old female patient, a chronic smoker started age of 18 and she quit smoking approximately 2 months ago. She presented emergency department was a 3 days history of shortness of breath. CAT scan of the chest was done in the emergency department and the patient was found to have extensive mediastinal lymphadenopathy and this is present in the right paratracheal area, right hilum, subcarinal area and the patient has mass effect with significant narrowing of the distal right main stem bronchus and bronchus intermedius and airways completely occluded past the distal right main stem. As such, the patient has extensive atelectatic changes in the right middle lobe and the right lower lobe with a small right-sided pleural effusion. Presentation is highly suspicious for small cell lung cancer. No evidence of any pulmonary embolism. The patient has of the discomfort of 14.2, sodium is at 131 initially at 128 probably rel ated to SIADH. Troponins are negative. Pro-calcitonin level is at 12.8. She is afebrile. Hemodynamically stable. Pulse ox is 95% liters of oxygen by nasal cannula. No hemoptysis. 20 pounds weight loss. The patient is seen today 07/16/2023 in follow-up on the regular medical floor. She is awake and alert in no acute distress. She is maintaining good O2 saturations in the mid 90s on 2 L/m per nasal cannula. She's afebrile. Hemodynamically stable. No new labs today. She is continued on Zosyn. Heparin for DVT prophylaxis. Normal saline at 75 ML's per hour. Based on the above mentioned computed tomography scan findings we will plan for bronchoscopy and probable biopsies tomorrow. The patient is seen today 07/17/2023 in follow-up on the regular medical floor. She is currently sitting up in a chair at the bedside. Awake and alert in no acute distress. She is maintaining O2 saturations in the 90s on 3 L/m per nasal cannula. She's been afebrile. Hemodynamically stable. Blood cultures reveal no growth. White count 12.8. Hemoglobin 11.3. Platelets 517. Sodium 140. P otassium 4.1. Bicarb 28. BUN 17. Creatinine 0.6. Glucose 104. Remains on antibiotics in form of Zosyn. Plan is for bronchoscopy with biopsies today 07/17/23 Patient underwent bronchoscopy and there was evidence of complete obstruction of the right mainstem bronchus and right upper lobe bronchus, there was evidence of endobronchial tumor, cauliflower-shaped tumor involving the enrike, right upper lobe bronchus, right mainstem bronchus, and there was no visualization of the right upper lobe or right middle lobe or right lower lobe. Procedure was done, patient underwent multiple biopsies of the endobronchial tumor, brushings were done, au needle aspiration of 4R lymph node done. The procedure was well- tolerated, however the patient was extubated in the recovery room, however she had to be reintubated because she was acting confused and her O2 saturations were running low. Patient was placed back on mechanical ventilation with assist control rate of 24, tidal volume to 50, FiO2 on the percent, PEEP of 5. Patient will be transferred to the ICU, she would be kept on mechanical ventilation tonight, and will likely address weaning and extubation to BiPAP in the next 24 hours. Patient does have significant underlying COPD and I believe extubating the patient to BiPAP would be reasonable. In the meantime we will support the patient on mechanical ventilation, and we will address weaning and extubation in the next 24 hours. Patient was reevaluated today on 07/18/23, patient underwent bronchoscopy and multiple endobronchial biopsies of a large tumor completely occluding the right mainstem bronchus, right upper lobe, and she had to transfer enrike needle aspiration of lymph nodes. Patient was extubated after the procedure however she did not tolerate the extubation and she had to be reintubated by [employer]. Patient was admitted to the ICU overnight, and I'm seeing her today, patient remains intubated and mechanically ventilated. She is on assist control rate of 26 tidal volume to 50 FiO2 45% and PEEP of 5 ABG showed a pO2 of 79 pCO2 50 pH of 7.40. Chest x-ray continues to show complete opacification of the right lung, left lung seems to be relatively clear. Patient is on propofol at 35 mcg/kg/m she is also on IV fluid at 100 mL per hour. After evaluating the patient, I recommended stopping propofol, patient was given a trial of pressure support of 12 and CPAP, and she was tolerating the weaning well. And I extubated the patient to BiPAP, 12/6/40%, and I will follow along next to the patient evaluating her pulmonary status during this transition from mechanical ventilation to BiPAP. Patient seemed to do better on BiPAP, hence we'll keep her on BiPAP today, and we will continue bronchodilators, we will continue her IV fluids, and awaiting final pathology from her recent endobronchial biopsies. Overall prognosis considering the findings on the bronchoscopy yesterday, is extremely poor Objective - Vital Signs Vital signs: Vital Signs Temp 98.5 F 07/18/23 08:00 Pulse 90 07/18/23 10:00 Resp 19 07/18/23 10:00 BP 113/71 07/18/23 10:00 Pulse Ox 93 L 07/18/23 10:00 FiO2 45 07/18/23 09:06 Intake & Output 07/17/23 07/18/23 07/18/23 18:59 06:59 18:59 Intake Total 2449.460 1471.969 311.667 Output Total 170 580 165 Balance 2279.460 891.969 146.667 Weight 76.9 kg Intake: IV 900 1300 300 Piperacillin-Tazobactam 3 100 .375 gm In Sodium Chloride 0.9% 100 ml @ 25 mls/hr IVPB Q8HR [facility] Rx# :[id number] Sodium Chloride 0.9% 1, 400 1200 300 000 ml @ 100 mls/hr IV . Q10H [facility] Rx#:[id number] Intake, IV Titration 1549.460 171.969 11.667 Amount Sodium Chloride 0.9% 1, 1000 000 ml @ 999 mls/hr IV . Q1H1M ONE Rx#:[id number] Sodium Chloride 0.9% 500 500 ml 500 ml @ 999 mls/hr IV .Q31M ONE Rx#:[id number] propofoL 1,000 mg In 49.460 171.969 Empty Bag 1 bag @ 15 MCG/ KG/MIN 6.532 mls/hr IV . [id number] [facility] Rx#:[id number] propofoL 1,000 mg In 11.667 Empty Bag 1 bag @ 15 MCG/ KG/MIN 6.532 mls/hr IV . [id number] [facility] Rx#:[id number] Output: Urine 170 580 165 Other: Voiding Method Indwelling Catheter Indwelling Catheter Indwelling Catheter # Voids 1 # Bowel Movements 1 - Exam Physical Exam: Revealed a 63-year-old female obese, in no distress, intubated and mechanically ventilated. Head: Atraumatic, normocephalic. HEENT:[Neck is supple.] [No neck masses.] [No thyromegaly.] [No JVD.] Endotracheal tube and orogastric tube are intact. Chest: [Extremely diminished breath sounds on the right side, left side is relatively clear. Cardiac Exam: [Normal S1 and S2, no S3 gallop, no murmur.] Abdomen: [Obese, Soft, nontender, no megaly, no rebound, no guarding, normal bowel sounds.] Extremities: [No clubbing, no edema, no cyanosis.] Neurological Exam: Patient is arousable, she follows simple instructions, but seems to get easily agitated. Psychiatric: Normal mood, affect and normal mental status examination. Skin: No rashes - Labs CBC & Chem 7: 07/18/23 05:26 07/18/23 05:26 Labs: Abnormal Lab Results - Last 24 Hours (Table) 07/17/23 07/17/23 07/17/23 Range/Units 06:38 06:38 14:05 WBC 12.80 H (4.50-10.00) X 10*3/uL RBC 3.77 L (4.10-5.20) X 10*6/uL Hgb 11.3 L (12.0-15.0) d/dL Hct 35.7 L (37.2-46.3) % MCHC 31.7 L (32.0-37.0) d/dL Plt Count 517 H (140-440) X 10*3/uL MPV 9.3 L (9.5-12.2) FL Neutrophils # 9.83 H (1.80-7.70) X 10*3/uL Lymphocytes # (1.0-4.8) k/uL Monocytes # 1.52 H (0.20-1.00) X 10*3/uL ABG pH (7.35-7.45) ABG pCO2 (35-45) mmHg ABG pO2 (83-108) mmHg ABG HCO3 (21-25) mmol/L ABG Total CO2 (19-24) mmol/L Creatinine (0.52-1.04) mg/dL BUN/Creatinine Ratio 28.50 H (12.00-20.00) Ratio Glucose (74-99) mg/dL POC Glucose (mg/dL) 137 H (70-110) mg/dL 07/17/23 07/18/23 07/18/23 Range/Units 15:07 05:26 05:26 WBC 13.3 H (4.50-10.00) X 10*3/uL RBC 3.41 L (4.10-5.20) X 10*6/uL Hgb 10.5 L (12.0-15.0) d/dL Hct 32.2 L (37.2-46.3) % MCHC (32.0-37.0) d/dL Plt Count 484 H (140-440) X 10*3/uL MPV (9.5-12.2) FL Neutrophils # 11.5 H (1.80-7.70) X 10*3/uL Lymphocytes # 0.8 L (1.0-4.8) k/uL Monocytes # (0.20-1.00) X 10*3/uL ABG pH 7.32 L (7.35-7.45) ABG pCO2 59 H (35-45) mmHg ABG pO2 (83-108) mmHg ABG HCO3 30 H (21-25) mmol/L ABG Total CO2 32 H (19-24) mmol/L Creatinine 0.42 L (0.52-1.04) mg/dL BUN/Creatinine Ratio (12.00-20.00) Ratio Glucose 109 H (74-99) mg/dL POC Glucose (mg/dL) (70-110) mg/dL 07/18/23 Range/Units 05:42 WBC (4.50-10.00) X 10*3/uL RBC (4.10-5.20) X 10*6/uL Hgb (12.0-15.0) d/dL Hct (37.2-46.3) % MCHC (32.0-37.0) d/dL Plt Count (140-440) X 10*3/uL MPV (9.5-12.2) FL Neutrophils # (1.80-7.70) X 10*3/uL Lymphocytes # (1.0-4.8) k/uL Monocytes # (0.20-1.00) X 10*3/uL ABG pH (7.35-7.45) ABG pCO2 50 H (35-45) mmHg ABG pO2 79 L (83-108) mmHg ABG HCO3 31 H (21-25) mmol/L ABG Total CO2 32 H (19-24) mmol/L Creatinine (0.52-1.04) mg/dL BUN/Creatinine Ratio (12.00-20.00) Ratio Glucose (74-99) mg/dL POC Glucose (mg/dL) (70-110) mg/dL Microbiology - Last 24 Hours (Table) 07/17/23 13:00 Gram Stain - Preliminary Bronchial Washings - Right Bronchial Washings Culture - Preliminary 07/15/23 17:00 Blood Culture - Preliminary Blood 07/15/23 17:15 Blood Culture - Preliminary Blood Assessment and Plan Assessment: Impression: Acute hypoxic and hypercapnic respiratory failure, post bronchoscopy, expected, requiring reintubation after the bronchoscopy and keeping the patient in the ICU overnight. This is related to her underlying COPD, also related to her underlying lung mass and significant opacification of the right lung secondary to lung mass, and also related to her hilar adenopathy. This is all consistent with COPD and underlying bronchogenic carcinoma most likely squamous cell lung cancer Hyponatremia secondary to SIADH Postobstructive pneumonia is also suspected Chronic smoker Suspect severe underlying COPD Coronary artery disease and previous stent of LAD Benign essential hypertension Recommendation: Continue to monitor the patient in the ICU Patient was weaned and extubated, placed on BiPAP and she will remain on BiPAP today 12/40% Continue IV Zosyn. Continue bronchodilators Awaiting the pathology report from her endobronchial biopsies and au needle aspiration of transfer enrike lymph node zone 4 R Continue fluid restrictions Continue to monitor sodium level We will continue to follow Patient remains critically ill Critical care time is over 30 minutes Time with Patient: Greater than 30
--- NOTE | 2023-07-18 15:31 | P.PN ---
Subjective Progress Note Date: 07/18/23 This is a pleasant 63 years old female with past medical history of Coronary Artery Disease s/p stenting, Heart Failure, GERD/Reflux, Hyperlipidemia, Hypertension, her PCP is Dr. Navarrete and platen press operator apprentice Dr. Neff for her history of coronary artery disease status post stent Patient presents because of worsening dyspnea over 3 days especially with exertion she has to stop to catch up with her breath. No significant chest pain and no significant coughing No other urinary GI symptoms. No dizziness weakness or numbness. She quit smoking about 2 months ago, lately she used to smoke 5 cigarettes per day. No alcohol or illicit drugs. She is hemodynamically stable, afebrile saturating well on 2 L oxygen via nasal cannula Labs showed mild leukocytosis of 13 and 14,000. Sodium markedly low at 1.8 and 131. ProBNP is low at 178. Troponin were unremarkable. Labs including CBC, BMP liver enzymes are unremarkable EKG showing normal sinus rhythm at 85 CT of the lung showing normal pulmonary embolism and rule out right pleural effusion with right lung consolidation suspicious for a mass. 07/16/2023 Patient is awake and alert. He is getting breathing treatments, she is mild respiratory distress while she is sitting in her chair. Her pro-calcitonin significantly elevated at 12.8. Currently she is covered with IV Zosyn and normal saline 75 mL/h. Plan for bronchoscopy tomorrow as patient is highly suspicious for lung cancer We'll give Xanax when necessary for anxiety 07/17/2023 patient has more respiratory difficulty today and she has some difficulty talking. While she was sitting in bed. She is mildly tachycardic. Heart rhythm rate 20-24, she is saturating 97% on 3 L oxygen via nasal cannula. WBC 12,000, sodium is normal at 140. Pulmonary team are planning for bronchoscopy today and possible biopsy for her right lung mass 07/18/2023 Patient seen and evaluated in follow-up maintained in the ICU was on mechanical ventilation and recently just extubated 30 minutes ago maintained on BiPAP. Patient is receiving IV hydration also maintained on Lasix and will discontinue the Lasix and monitor closely with follow-up labs and continue hydration for now. Patient's blood pressures are on the lower side as well and will hold blood pressure medications and resume as needed. Chest x-ray today shows complete opacification patient on the right with pulmonary events specialist following closely. PEEP of 6 and FiO2 is 40% on BiPAP and will continue. Patient is status post bronchoscopy and biopsies are pending at this time. Patient is afebrile and also continued on empirically Zosyn. Patient is responsive and able to follow commands and answer questions appropriately. Recommend follow-up labs in the a.m. Review of systems: Unable to obtain as patient is on mechanical ventilation and was on propofol just recently extubated 30 minutes prior Physical exam: GENERAL: The patient is asleep but arousable, alert and oriented x3, not in any acute distress. Well developed, well nourished. Was just extubated this morning and maintained on BiPAP with an FiO2 of 40% and PEEP is 6 HEENT: Pupils are round and equally reacting to light. EOMI. No scleral icterus. No conjunctival pallor. Normocephalic, atraumatic. No pharyngeal erythema. No thyromegaly. CARDIOVASCULAR: S1 and S2 present. No murmurs, rubs, or gallops. PULMONARY: Diminished breath sounds on the right otherwise Chest is clear to auscultation, no wheezing , no crackles. ABDOMEN: Soft, nontender, nondistended, normoactive bowel sounds. No palpable organomegaly. MUSCULOSKELETAL: No joint swelling or deformity. EXTREMITIES: No cyanosis, clubbing, or pedal edema. NEUROLOGICAL: Gross neurological examination did not reveal any focal deficits. Diffusely weak SKIN: No rashes. no petechiae. 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 Patient reports she does not wear oxygen outpatient and has extensive COPD underwent a bronchoscopy had some difficulties requiring reintubation. Pulmonary events specialist following closely maintained on empiric antibiotics at this time along with albuterol treatments Patient was given gentle IV hydration and was still continued on Lasix and will hold Lasix for now and continue with very gentle hydration as patient has history of heart failure until diet is resumed Chest x-ray ordered for a.m. We'll follow up on repeat a.m. labs Pathology is pending status post bronchoscopy Overall prognosis is guarded at this time and carcinoma is highly suspected Resume diet once tolerating and bedside swallow is performed Will have PT/OT therapy evaluate The impression and plan of care has been dictated by Jaida Dolan, Nurse Practitioner as directed. MD Jc I have performed a history and examination and MDM of this patient, discussed the same with the dictator, and agree with the dictator's assessment and plan as written ,documented as a scribe. Based on total visit time, I have performed more than 50% of the visit. Objective - Vital Signs Vital signs: Vital Signs Temp 98.5 F 07/18/23 08:00 Pulse 87 07/18/23 08:00 Resp 26 H 07/18/23 08:00 BP 100/59 07/18/23 08:00 Pulse Ox 95 07/18/23 08:00 FiO2 45 07/18/23 08:44 Intake & Output 07/17/23 07/18/23 07/18/23 18:59 06:59 18:59 Intake Total 2449.460 1471.969 200 Output Total 170 580 90 Balance 2279.460 891.969 110 Weight 76.9 kg Intake: IV 900 1300 200 Piperacillin-Tazobactam 3 100 .375 gm In Sodium Chloride 0.9% 100 ml @ 25 mls/hr IVPB Q8HR [facility] Rx# :[id number] Sodium Chloride 0.9% 1, 400 1200 200 000 ml @ 100 mls/hr IV . Q10H [facility] Rx#:[id number] Intake, IV Titration 1549.460 171.969 Amount Sodium Chloride 0.9% 1, 1000 000 ml @ 999 mls/hr IV . Q1H1M ONE Rx#:[id number] Sodium Chloride 0.9% 500 500 ml 500 ml @ 999 mls/hr IV .Q31M ONE Rx#:[id number] propofoL 1,000 mg In 49.460 171.969 Empty Bag 1 bag @ 15 MCG/ KG/MIN 6.532 mls/hr IV . [id number] [facility] Rx#:[id number] Output: Urine 170 580 90 Other: Voiding Method Indwelling Catheter Indwelling Catheter Indwelling Catheter # Voids 1 # Bowel Movements 1 - Labs CBC & Chem 7: 07/18/23 05:26 07/18/23 05:26 Labs: Abnormal Lab Results - Last 24 Hours (Table) 07/17/23 07/17/23 07/17/23 Range/Units 06:38 06:38 14:05 WBC 12.80 H (4.50-10.00) X 10*3/uL RBC 3.77 L (4.10-5.20) X 10*6/uL Hgb 11.3 L (12.0-15.0) d/dL Hct 35.7 L (37.2-46.3) % MCHC 31.7 L (32.0-37.0) d/dL Plt Count 517 H (140-440) X 10*3/uL MPV 9.3 L (9.5-12.2) FL Neutrophils # 9.83 H (1.80-7.70) X 10*3/uL Lymphocytes # (1.0-4.8) k/uL Monocytes # 1.52 H (0.20-1.00) X 10*3/uL ABG pH (7.35-7.45) ABG pCO2 (35-45) mmHg ABG pO2 (83-108) mmHg ABG HCO3 (21-25) mmol/L ABG Total CO2 (19-24) mmol/L Creatinine (0.52-1.04) mg/dL BUN/Creatinine Ratio 28.50 H (12.00-20.00) Ratio Glucose (74-99) mg/dL POC Glucose (mg/dL) 137 H (70-110) mg/dL 07/17/23 07/18/23 07/18/23 Range/Units 15:07 05:26 05:26 WBC 13.3 H (4.50-10.00) X 10*3/uL RBC 3.41 L (4.10-5.20) X 10*6/uL Hgb 10.5 L (12.0-15.0) d/dL Hct 32.2 L (37.2-46.3) % MCHC (32.0-37.0) d/dL Plt Count 484 H (140-440) X 10*3/uL MPV (9.5-12.2) FL Neutrophils # 11.5 H (1.80-7.70) X 10*3/uL Lymphocytes # 0.8 L (1.0-4.8) k/uL Monocytes # (0.20-1.00) X 10*3/uL ABG pH 7.32 L (7.35-7.45) ABG pCO2 59 H (35-45) mmHg ABG pO2 (83-108) mmHg ABG HCO3 30 H (21-25) mmol/L ABG Total CO2 32 H (19-24) mmol/L Creatinine 0.42 L (0.52-1.04) mg/dL BUN/Creatinine Ratio (12.00-20.00) Ratio Glucose 109 H (74-99) mg/dL POC Glucose (mg/dL) (70-110) mg/dL 07/18/23 Range/Units 05:42 WBC (4.50-10.00) X 10*3/uL RBC (4.10-5.20) X 10*6/uL Hgb (12.0-15.0) d/dL Hct (37.2-46.3) % MCHC (32.0-37.0) d/dL Plt Count (140-440) X 10*3/uL MPV (9.5-12.2) FL Neutrophils # (1.80-7.70) X 10*3/uL Lymphocytes # (1.0-4.8) k/uL Monocytes # (0.20-1.00) X 10*3/uL ABG pH (7.35-7.45) ABG pCO2 50 H (35-45) mmHg ABG pO2 79 L (83-108) mmHg ABG HCO3 31 H (21-25) mmol/L ABG Total CO2 32 H (19-24) mmol/L Creatinine (0.52-1.04) mg/dL BUN/Creatinine Ratio (12.00-20.00) Ratio Glucose (74-99) mg/dL POC Glucose (mg/dL) (70-110) mg/dL Microbiology - Last 24 Hours (Table) 07/17/23 13:00 Gram Stain - Preliminary Bronchial Washings - Right 07/15/23 17:00 Blood Culture - Preliminary Blood 07/15/23 17:15 Blood Culture - Preliminary Blood
[2023-07-18] MEDS: ALPRAZolam 0.5 MG TAB PO PRN (19:42)
[2023-07-18] MEDS: ATORVASTATIN 80 MG TAB PO SCH (19:42)
[2023-07-19] MEDS: PIPERACILLIN-TAZOBACTAM 3.375 GM in SODIUM CHLORIDE 0.9% 100 ML IVPB SCH ×3 (01:04→16:14)
[2023-07-19 05:40] LABS: Basophils % (A) 0 %; Eosinophils # (A) 0.2 k/uL (0-0.7); Eosinophils % (A) 1 %; HCT 34.5 % (34.0-46.0); HGB 11.1 gm/dL (11.4-16.0); Hypochromasia Slight; Lymphocytes # (A) 1.2 k/uL (1.0-4.8); Lymphocytes % (A) 8 %; MCH 30.6 pg (25.0-35.0); MCHC 32.3 g/dL (31.0-37.0); MCV 94.8 fL (80.0-100.0); Mean Platelet Volume 6.9; Monocytes # (A) 0.9 k/uL (0-1.0); Monocytes % (A) 6 %; Neutrophils # (A) 13.3 k/uL (1.3-7.7); Neutrophils % (A) 85 %; Platelet Count 534 k/uL (150-450); RBC 3.64 m/uL (3.80-5.40); RDW 13.2 % (11.5-15.5); WBC 15.7 k/uL (3.8-10.6)
[2023-07-19 06:08] LABS: African American GFR (CKD) >90 (>60 ml/min/1.73 sqM); Anion Gap 7 mmol/L; Blood Urea Nitrogen 17 mg/dL (7-17); Calcium 8.5 mg/dL (8.4-10.2); Carbon Dioxide 28 mmol/L (22-30); Chloride 107 mmol/L (98-107); Glucose 117 mg/dL (74-99); Magnesium 2.3 mg/dL (1.6-2.3); Non-African American GFR(CKD) >90 (>60 ml/min/1.73 sqM); Potassium 3.7 mmol/L (3.5-5.1); Sodium 142 mmol/L (137-145)
[2023-07-19] MEDS: carvediloL 12.5 MG TAB PO SCH ×2 (07:07→17:38)
[2023-07-19] MEDS: SODIUM CHLORIDE 0.9% 1,000 ML IV SCH (07:07)
--- NOTE | 2023-07-19 07:39 | XR ---
EXAMINATION TYPE: XR chest 1V portable DATE OF EXAM: 07/19/2023 6:30 AM CLINICAL INDICATION:Female, 63 years old with history of Tube placement; [facility] COMPARISON: Chest radiographs from 07/18/2023 TECHNIQUE: XR chest 1V portable Frontal view of the chest. FINDINGS: Lungs/Pleura: There is no evidence of pleural effusion, focal consolidation, or pneumothorax. Pulmonary vascularity: Unremarkable. Heart/mediastinum: Cardiomediastinal silhouette is unremarkable. Atherosclerotic calcifications are seen in the aorta. Musculoskeletal: No acute osseous pathology. Other findings: Removal of support tubes. IMPRESSION: 1. Complete opacification of the right hemithorax likely secondary to large pleural effusion with at electasis. 2. Interval removal of support tubes.
[2023-07-19] MEDS: HEPARIN SODIUM,PORCINE 5,000 UNIT/ML 1 ML VIAL SQ SCH ×2 (07:56→21:12)
[2023-07-19] MEDS: ASPIRIN 81 MG PO SCH (07:57)
[2023-07-19] MEDS: ALBUTEROL NEBULIZED 2.5 MG/3 ML INHALATION SCH ×4 (08:14→19:37)
--- NOTE | 2023-07-19 11:24 | P.PN ---
Subjective Progress Note Date: 07/19/23 Principal diagnosis: lung mass This is a 63-year-old female patient, a chronic smoker started age of 18 and she quit smoking approximately 2 months ago. She presented emergency department was a 3 days history of shortness of breath. CAT scan of the chest was done in the emergency department and the patient was found to have extensive mediastinal lymphadenopathy and this is present in the right paratracheal area, right hilum, subcarinal area and the patient has mass effect with significant narrowing of the distal right main stem bronchus and bronchus intermedius and airways completely occluded past the distal right main stem. As such, the patient has extensive atelectatic changes in the right middle lobe and the right lower lobe with a small right-sided pleural effusion. Presentation is highly suspicious for small cell lung cancer. No evidence of any pulmonary embolism. The patient has of the discomfort of 14.2, sodium is at 131 initially at 128 probably rel ated to SIADH. Troponins are negative. Pro-calcitonin level is at 12.8. She is afebrile. Hemodynamically stable. Pulse ox is 95% liters of oxygen by nasal cannula. No hemoptysis. 20 pounds weight loss. The patient is seen today 07/16/2023 in follow-up on the regular medical floor. She is awake and alert in no acute distress. She is maintaining good O2 saturations in the mid 90s on 2 L/m per nasal cannula. She's afebrile. Hemodynamically stable. No new labs today. She is continued on Zosyn. Heparin for DVT prophylaxis. Normal saline at 75 ML's per hour. Based on the above mentioned computed tomography scan findings we will plan for bronchoscopy and probable biopsies tomorrow. The patient is seen today 07/17/2023 in follow-up on the regular medical floor. She is currently sitting up in a chair at the bedside. Awake and alert in no acute distress. She is maintaining O2 saturations in the 90s on 3 L/m per nasal cannula. She's been afebrile. Hemodynamically stable. Blood cultures reveal no growth. White count 12.8. Hemoglobin 11.3. Platelets 517. Sodium 140. P otassium 4.1. Bicarb 28. BUN 17. Creatinine 0.6. Glucose 104. Remains on antibiotics in form of Zosyn. Plan is for bronchoscopy with biopsies today 07/17/23 Patient underwent bronchoscopy and there was evidence of complete obstruction of the right mainstem bronchus and right upper lobe bronchus, there was evidence of endobronchial tumor, cauliflower-shaped tumor involving the enrike, right upper lobe bronchus, right mainstem bronchus, and there was no visualization of the right upper lobe or right middle lobe or right lower lobe. Procedure was done, patient underwent multiple biopsies of the endobronchial tumor, brushings were done, au needle aspiration of 4R lymph node done. The procedure was well- tolerated, however the patient was extubated in the recovery room, however she had to be reintubated because she was acting confused and her O2 saturations were running low. Patient was placed back on mechanical ventilation with assist control rate of 24, tidal volume to 50, FiO2 on the percent, PEEP of 5. Patient will be transferred to the ICU, she would be kept on mechanical ventilation tonight, and will likely address weaning and extubation to BiPAP in the next 24 hours. Patient does have significant underlying COPD and I believe extubating the patient to BiPAP would be reasonable. In the meantime we will support the patient on mechanical ventilation, and we will address weaning and extubation in the next 24 hours. Patient was reevaluated today on 07/18/23, patient underwent bronchoscopy and multiple endobronchial biopsies of a large tumor completely occluding the right mainstem bronchus, right upper lobe, and she had to transfer enrike needle aspiration of lymph nodes. Patient was extubated after the procedure however she did not tolerate the extubation and she had to be reintubated by MACHINE MAINTENANCE TECHNICIAN. Patient was admitted to the ICU overnight, and I'm seeing her today, patient remains intubated and mechanically ventilated. She is on assist control rate of 26 tidal volume to 50 FiO2 45% and PEEP of 5 ABG showed a pO2 of 79 pCO2 50 pH of 7.40. Chest x-ray continues to show complete opacification of the right lung, left lung seems to be relatively clear. Patient is on propofol at 35 mcg/kg/m she is also on IV fluid at 100 mL per hour. After evaluating the patient, I recommended stopping propofol, patient was given a trial of pressure support of 12 and CPAP, and she was tolerating the weaning well. And I extubated the patient to BiPAP, 12/6/40%, and I will follow along next to the patient evaluating her pulmonary status during this transition from mechanical ventilation to BiPAP. Patient seemed to do better on BiPAP, hence we'll keep her on BiPAP today, and we will continue bronchodilators, we will continue her IV fluids, and awaiting final pathology from her recent endobronchial biopsies. Overall prognosis considering the findings on the bronchoscopy yesterday, is extremely poor She was seen and examined today on 07/19/23, patient remains in the ICU, she was extubated yesterday successfully, presently on nasal cannula at 8 L/m, however she was on BiPAP at night 08/22/45%. O2 saturations in the mid 90s I cut her down to 5 L nasal cannula, patient did not sleep well last night. IV fluid is cut down to KVO, patient is eating and drinking pathology from the bronchoscopy is still pending however in the meantime I'm recommending consultation with oncology and with radiation oncology. Chest x-ray continues to show complete opacification of the right hemithorax. No infiltrate in the left lung. WBC count is 15.7 hemoglobin is 11.1, basic metabolic profile is normal, renal profile is normal Objective - Vital Signs Vital signs: Vital Signs Temp 98.3 F 07/19/23 08:00 Pulse 96 07/19/23 08:25 Resp 20 07/19/23 09:00 BP 137/88 07/19/23 09:00 Pulse Ox 93 L 07/19/23 09:00 FiO2 45 07/19/23 09:29 Intake & Output 07/18/23 07/19/23 07/19/23 18:59 06:59 18:59 Intake Total 9270.950 6686 350 Output Total 815 1380 410 Balance 1146.667 -80 -60 Weight 79.5 kg 79.5 kg Intake: IV 1100 1300 350 Piperacillin-Tazobactam 3 100 100 .375 gm In Sodium Chloride 0.9% 100 ml @ 25 mls/hr IVPB Q8HR [facility] Rx# :[id number] Sodium Chloride 0.9% 1, 1100 1200 250 000 ml @ 10 mls/hr IV . Q24H [facility] Rx#:[id number] Intake, IV Titration 11.667 Amount propofoL 1,000 mg In 11.667 Empty Bag 1 bag @ 15 MCG/ KG/MIN 6.532 mls/hr IV . [id number] [facility] Rx#:[id number] Oral 850 Output: Urine 815 1380 410 Other: Voiding Method Indwelling Catheter Indwelling Catheter Indwelling Catheter - Exam Physical Exam: Revealed a 63-year-old female obese, in no distress, on 8 L high flow nasal cannula Head: Atraumatic, normocephalic. HEENT:[Neck is supple.] [No neck masses.] [No thyromegaly.] [No JVD.] Chest: [Extremely diminished breath sounds on the right side, left side is relatively clear. Cardiac Exam: [Normal S1 and S2, no S3 gallop, no murmur.] Abdomen: [Obese, Soft, nontender, no megaly, no rebound, no guarding, normal bowel sounds.] Extremities: [No clubbing, no edema, no cyanosis.] Neurological Exam: Patient is alert and oriented 3, no gross focal neurologic deficit Psychiatric: Normal mood, affect and normal mental status examination. Skin: No rashes - Labs CBC & Chem 7: 07/19/23 05:22 07/19/23 05:22 Labs: Abnormal Lab Results - Last 24 Hours (Table) 07/19/23 07/19/23 Range/Units 05:22 05:22 WBC 15.7 H (3.8-10.6) k/uL RBC 3.64 L (3.80-5.40) m/uL Hgb 11.1 L (11.4-16.0) gm/dL Plt Count 534 H (150-450) k/uL Neutrophils # 13.3 H (1.3-7.7) k/uL Creatinine 0.44 L (0.52-1.04) mg/dL Glucose 117 H (74-99) mg/dL Microbiology - Last 24 Hours (Table) 07/17/23 13:00 Gram Stain - Final Bronchial Washings - Right Bronchial Washings Culture - Final 07/15/23 17:00 Blood Culture - Preliminary Blood 07/15/23 17:15 Blood Culture - Preliminary Blood Assessment and Plan Assessment: Impression: Acute hypoxic and hypercapnic respiratory failure, post bronchoscopy, expected, requiring reintubation after the bronchoscopy and keeping the patient in the ICU overnight. This is related to her underlying COPD, also related to her underlying lung mass and significant opacification of the right lung secondary to lung mass, and also related to her hilar adenopathy. This is all consistent with COPD and underlying bronchogenic carcinoma most likely squamous cell lung cancer Hyponatremia secondary to SIADH, resolved Postobstructive pneumonia is also suspected Chronic smoker Suspect severe underlying COPD Coronary artery disease and previous stent of LAD Benign essential hypertension Recommendation: Transfer patient to medical surgical floor Consult medical oncology and radiation oncology Discussed CODE STATUS with the patient, wishes to be DO NOT RESUSCITATE Continue Zosyn and bronchodilators Use BiPAP at night or as needed Continue bronchodilators Awaiting the pathology report from her endobronchial biopsies and au needle aspiration of transfer enrike lymph node zone 4 R Continue to follow Time with Patient: Less than 30
--- NOTE | 2023-07-19 17:52 | P.CONS ---
History of Present Illness - Reason for Consult Consult date: 07/19/23 suspected lung cancer Requesting physician: Gayathri Gannon - Chief Complaint SOB, lung mass - History of Present Illness Patient is a 63-year-old female with a significant history of COPD and nicotine abuse. Consult was placed for lung mass suspicious for lung cancer. Patient underwent bronchoscopy with biopsy yesterday. Pathology and cytology have been sent on endobronchial tumor. CTA chest revealed no acute pulmonary embolism. Poor vascularity on the right with a large right pleural effusion with compressive atelectasis at the lung bases and apparent consolidation within right upper lung field. Consideration for underlying mass. Enlarged mediastinal adenopathy. Patient reports she has been experiencing progressive shortness of breath since May after being diagnosed with COVID. Reports over the last couple days breathing has worsened causing her to present to the ER for further evaluation. Patient also reports persisting cough with no acute changes. Denies hemoptysis. Denies unintentional weight loss. Reports she is experiencing night sweats. Denies fever and chills. She has a history of [id number] smoker. Denies personal of cancer. Review of Systems 10 point ROS is negative except as stated in the HPI Past Medical History Past Medical History: Coronary Artery Disease (CAD), Heart Failure, GERD/Reflux, Hyperlipidemia, Hypertension, Myocardial Infarction ([place]) Additional Past Medical History / Comment(s): VOCAL CORD POLYP Last Myocardial Infarction Date:: 2011 History of Any Multi-Drug Resistant Organisms: None Reported Past Surgical History: Heart Catheterization With Stent, Tonsillectomy, Tubal Ligation Additional Past Surgical History / Comment(s): JHON R.K. SX, VOCAL CHORD POLYPS REMOVED x2 Past Anesthesia/Blood Transfusion Reactions: No Reported Reaction Date of Last Stent Placement:: UNK Past Psychological History: No Psychological Hx Reported Smoking Status: Former smoker Past Alcohol Use History: Rare Additional Past Alcohol Use History / Comment(s): STARTED SMOKING AT AGE 17 (1976), SMOKING 1/2PPD FOR 36 YRS. Just quit smoking jun 2023 Past Drug Use History: None Reported - Past Family History Sister(s) Family Medical History: Cancer Medications and Allergies Home Medications Medication Instructions Recorded Confirmed Type Aspirin 81 mg PO DAILY 07/29/14 07/14/23 History Carvedilol 25 mg PO BID 07/29/14 07/14/23 History Furosemide [Lasix] 20 mg PO DAILY 07/29/14 07/14/23 History amLODIPine [Norvasc] 5 mg PO BID 07/29/14 07/14/23 History lisinopriL [Zestril] 10 mg PO DAILY 07/29/14 07/14/23 History Atorvastatin [Lipitor] 80 mg PO HS 08/27/14 07/14/23 History Levofloxacin [Levaquin] 500 mg PO DAILY 07/14/23 07/14/23 History Allergies Allergy/AdvReac Type Severity Reaction Status Date / Time No Known Allergies Allergy Verified 07/17/23 12:37 Physical Exam Vitals: Vital Signs Temp Pulse Resp BP Pulse Ox FiO2 07/19/23 16:00 98.0 F 100 20 138/79 91 L 07/19/23 14:47 88 45 07/19/23 09:29 45 07/19/23 09:00 20 137/88 93 L 07/19/23 08:25 96 07/19/23 08:14 95 07/19/23 08:00 98.3 F 23 134/81 93 L 07/19/23 07:00 90 28 H 117/79 94 L 07/19/23 06:00 93 23 115/76 96 07/19/23 05:00 90 26 H 128/88 95 07/19/23 04:00 97.7 F 92 19 117/75 96 07/19/23 03:34 95 07/19/23 03:00 10 L 136/85 95 07/19/23 02:00 8 L 93 L 07/19/23 01:00 105 H 15 130/76 97 07/19/23 00:00 97.6 F 104 H 19 130/88 92 L 07/18/23 23:29 98 14 130/88 95 07/18/23 23:00 26 H 115/86 95 07/18/23 22:00 96 26 H 143/84 96 07/18/23 21:00 100 23 157/102 92 L 07/18/23 20:39 96 07/18/23 20:23 96 07/18/23 20:00 97.6 F 99 26 H 145/88 93 L 07/18/23 19:00 100 14 145/90 93 L 07/18/23 18:00 101 H 17 145/90 92 L Intake and Output 07/19/23 07/19/23 07/19/23 06:59 14:59 22:59 Intake Total 900 360 100 Output Total 1075 510 250 Balance -175 -150 -150 Intake: IV 900 360 100 Piperacillin-Tazobactam 3 100 100 100 .375 gm In Sodium Chloride 0.9% 100 ml @ 25 mls/hr IVPB Q8HR [facility] Rx# :[id number] Sodium Chloride 0.9% 1, 800 260 000 ml @ 10 mls/hr IV . Q24H [facility] Rx#:[id number] Output: Urine 1075 510 250 Other: Voiding Method Indwelling Catheter Indwelling Catheter Bedside Commode External Catheter # Bowel Movements 1 1 Weight 79.5 kg 79.5 kg - Constitutional General appearance: average body habitus, mild distress - EENT Eyes: anicteric sclerae, EOMI ENT: hearing grossly normal - Respiratory breathing labored Respiratory: bilateral: diminished (r>l) - Cardiovascular Rhythm: regular Heart sounds: normal: S1, S2 - Gastrointestinal General gastrointestinal: soft, no tenderness - Integumentary Integumentary: no cyanotic - Musculoskeletal Musculoskeletal: generalized weakness - Psychiatric Psychiatric: A&O x's 3, appropriate affect, intact judgment & insight Results CBC & Chem 7: 07/19/23 05:22 07/19/23 05:22 Labs: Abnormal Lab Results - Last 24 Hours (Table) 07/19/23 07/19/23 Range/Units 05:22 05:22 WBC 15.7 H (3.8-10.6) k/uL RBC 3.64 L (3.80-5.40) m/uL Hgb 11.1 L (11.4-16.0) gm/dL Plt Count 534 H (150-450) k/uL Neutrophils # 13.3 H (1.3-7.7) k/uL Creatinine 0.44 L (0.52-1.04) mg/dL Glucose 117 H (74-99) mg/dL Microbiology - Last 24 Hours (Table) 07/17/23 13:00 Gram Stain - Final Bronchial Washings - Right Bronchial Washings Culture - Final 07/15/23 17:00 Blood Culture - Preliminary Blood 07/15/23 17:15 Blood Culture - Preliminary Blood Chest x-ray: report reviewed CT scan - chest: report reviewed Assessment and Plan (1) Acute exacerbation of chronic obstructive pulmonary disease Current Visit: Yes Status: Acute Code(s): J44.1 - CHRONIC OBSTRUCTIVE PULMONARY DISEASE W (ACUTE) EXACERBATION SNOMED Code(s): 223055060 (2) Lung mass Current Visit: Yes Status: Acute Code(s): R91.8 - OTHER NONSPECIFIC ABNORMAL FINDING OF LUNG FIELD SNOMED Code(s): 466453767 Plan: Right lung mass: -Significant history of COPD and nicotine abuse, with 40 pack years. Progressive shortness of breath since May after being diagnosed with COVID -CTA chest revealed no acute pulmonary embolism. Poor vascularity on the right with a large right pleural effusion with compressive atelectasis at the lung bases and apparent consolidation within right upper lung field. Consideration for underlying mass. Enlarged mediastinal adenopathy. -Patient underwent bronchoscopy with biopsy yesterday with endobronchial tumor noted. Pathology and cytology have been sent -Rad onc consult placed -Once breathing stabilized will obtain MRI brain. -PET CT will be scheduled outpt, and NGS and PDL1 will be requested on pathology -Pt updated on results and concerns for malignancy. She is agreeable to proceed with further testing -Clinic f/u will be scheduled upon discharge COPD exacerbation: -Pulm following, continues on inhaler and zosyn
--- NOTE | 2023-07-19 18:39 | P.PN ---
Subjective Progress Note Date: 07/19/23 This is a pleasant 63 years old female with past medical history of Coronary Artery Disease s/p stenting, Heart Failure, GERD/Reflux, Hyperlipidemia, Hypertension, her PCP is Dr. Navarrete and building rental manager Dr. Neff for her history of coronary artery disease status post stent Patient presents because of worsening dyspnea over 3 days especially with exertion she has to stop to catch up with her breath. No significant chest pain and no significant coughing No other urinary GI symptoms. No dizziness weakness or numbness. She quit smoking about 2 months ago, lately she used to smoke 5 cigarettes per day. No alcohol or illicit drugs. She is hemodynamically stable, afebrile saturating well on 2 L oxygen via nasal cannula Labs showed mild leukocytosis of 13 and 14,000. Sodium markedly low at 1.8 and 131. ProBNP is low at 178. Troponin were unremarkable. Labs including CBC, BMP liver enzymes are unremarkable EKG showing normal sinus rhythm at 85 CT of the lung showing normal pulmonary embolism and rule out right pleural effusion with right lung consolidation suspicious for a mass. 07/16/2023 Patient is awake and alert. He is getting breathing treatments, she is mild respiratory distress while she is sitting in her chair. Her pro-calcitonin significantly elevated at 12.8. Currently she is covered with IV Zosyn and normal saline 75 mL/h. Plan for bronchoscopy tomorrow as patient is highly suspicious for lung cancer We'll give Xanax when necessary for anxiety 07/17/2023 patient has more respiratory difficulty today and she has some difficulty talking. While she was sitting in bed. She is mildly tachycardic. Heart rhythm rate 20-24, she is saturating 97% on 3 L oxygen via nasal cannula. WBC 12,000, sodium is normal at 140. Pulmonary team are planning for bronchoscopy today and possible biopsy for her right lung mass 07/18/2023 Patient seen and evaluated in follow-up maintained in the ICU was on mechanical ventilation and recently just extubated 30 minutes ago maintained on BiPAP. Patient is receiving IV hydration also maintained on Lasix and will discontinue the Lasix and monitor closely with follow-up labs and continue hydration for now. Patient's blood pressures are on the lower side as well and will hold blood pressure medications and resume as needed. Chest x-ray today shows complete opacification patient on the right with pulmonary concession supervisor following closely. PEEP of 6 and FiO2 is 40% on BiPAP and will continue. Patient is status post bronchoscopy and biopsies are pending at this time. Patient is afebrile and also continued on empirically Zosyn. Patient is responsive and able to follow commands and answer questions appropriately. Recommend follow-up labs in the a.m. 07/19/2023 Patient is seen and evaluated in follow-up today and continues to be in the ICU is a downgrade awaiting a MedSur bed currently.patient using BiPAP intermittently as needed at night and titrating down currently on 6 L via nasal cannula. CODE STATUS was addressed with pulmonary and patient is currently no code. Patient is afebrile with no worsening shortness of breath although does continue to be quite dyspneic on exam. Patient also having some coughing spells and reports some difficulty with swallowing medications and food and will have speech evaluate with a swallow assessment. Will have PT/OT therapy evaluate the patient as well as patient is significantly weak. Review of systems: Constitutional: No reports of fatigue, fever, or chills Cardiovascular: No reports of chest pain or palpitations Respiratory: reports of shortness of breath with a weak cough GI: No reports of nausea, vomiting, or diarrhea, reports some difficulty with swallowing : No reports of dysuria or retention Neurovascular: reports of generalized weakness All medications have been reviewed Physical exam: GENERAL: The patient is awake, alert and oriented x3, not in any acute distress. Well developed, well nourished. Intermittently on BiPAP and transitioning down to 6 L nasal cannula HEENT: Pupils are round and equally reacting to light. EOMI. No scleral icterus. No conjunctival pallor. Normocephalic, atraumatic. No pharyngeal erythema. No thyromegaly. CARDIOVASCULAR: S1 and S2 present. No murmurs, rubs, or gallops. PULMONARY: Diminished breath sounds on the right otherwise Chest is clear to auscultation, no wheezing , no crackles. ABDOMEN: Soft, nontender, nondistended, normoactive bowel sounds. No palpable organomegaly. MUSCULOSKELETAL: No joint swelling or deformity. EXTREMITIES: No cyanosis, clubbing, or pedal edema. NEUROLOGICAL: Gross neurological examination did not reveal any focal deficits. Diffusely weak SKIN: No rashes. no petechiae. 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 Patient has been using intermittent BiPAP and transitioning to 6 L via nasal cannula. Patient reports she does not wear oxygen outpatient and has extensive COPD underwent a bronchoscopy had some difficulties requiring reintubation. Pulmonary concession supervisor following closely maintained on empiric antibiotics at this time along with albuterol treatments Chest x-ray this a.m. continues to show complete opacification patient on the right Replace electrolytes per protocol Patient was having a choking episode on water and reports to having some difficulty in swallowing pills and food and liquids at times and will consult speech for bedside evaluation Pathology is pending status post bronchoscopy Pulmonary concession supervisor following and has consulted oncology along with radiation oncology Overall prognosis is guarded at this time and carcinoma is highly suspected CODE STATUS was addressed and patient wishes to be no code Will have PT/OT therapy evaluate The impression and plan of care has been dictated by Jaida Dolan, Nurse Practitioner as directed. MD Jc I have performed a history and examination and MDM of this patient, discussed the same with the dictator, and agree with the dictator's assessment and plan as written ,documented as a scribe. Based on total visit time, I have performed more than 50% of the visit. Objective - Vital Signs Vital signs: Vital Signs Temp 98.3 F 07/19/23 08:00 Pulse 96 07/19/23 08:25 Resp 20 07/19/23 09:00 BP 137/88 07/19/23 09:00 Pulse Ox 93 L 07/19/23 09:00 FiO2 45 07/19/23 09:29 Intake & Output 07/18/23 07/19/23 07/19/23 18:59 06:59 18:59 Intake Total 9943.742 5621 360 Output Total 815 1380 510 Balance 1146.667 -80 -150 Weight 79.5 kg 79.5 kg Intake: IV 1100 1300 360 Piperacillin-Tazobactam 3 100 100 .375 gm In Sodium Chloride 0.9% 100 ml @ 25 mls/hr IVPB Q8HR [facility] Rx# :[id number] Sodium Chloride 0.9% 1, 1100 1200 260 000 ml @ 10 mls/hr IV . Q24H [facility] Rx#:[id number] Intake, IV Titration 11.667 Amount propofoL 1,000 mg In 11.667 Empty Bag 1 bag @ 15 MCG/ KG/MIN 6.532 mls/hr IV . [id number] [facility] Rx#:[id number] Oral 850 Output: Urine 815 1380 510 Other: Voiding Method Indwelling Catheter Indwelling Catheter Indwelling Catheter # Bowel Movements 1 - Labs CBC & Chem 7: 07/19/23 05:22 07/19/23 05:22 Labs: Abnormal Lab Results - Last 24 Hours (Table) 07/19/23 07/19/23 Range/Units 05:22 05:22 WBC 15.7 H (3.8-10.6) k/uL RBC 3.64 L (3.80-5.40) m/uL Hgb 11.1 L (11.4-16.0) gm/dL Plt Count 534 H (150-450) k/uL Neutrophils # 13.3 H (1.3-7.7) k/uL Creatinine 0.44 L (0.52-1.04) mg/dL Glucose 117 H (74-99) mg/dL Microbiology - Last 24 Hours (Table) 07/17/23 13:00 Gram Stain - Final Bronchial Washings - Right Bronchial Washings Culture - Final 07/15/23 17:00 Blood Culture - Preliminary Blood 07/15/23 17:15 Blood Culture - Preliminary Blood
[2023-07-19] MEDS: ALPRAZolam 0.5 MG TAB PO PRN (19:10)
[2023-07-19] MEDS: ATORVASTATIN 80 MG TAB PO SCH (21:12)
[2023-07-20] MEDS: PIPERACILLIN-TAZOBACTAM 3.375 GM in SODIUM CHLORIDE 0.9% 100 ML IVPB SCH ×4 (00:15→23:21)
[2023-07-20 05:19] LABS: Basophils % (A) 0 %; Eosinophils # (A) 0.1 k/uL (0-0.7); Eosinophils % (A) 1 %; HCT 34.1 % (34.0-46.0); HGB 10.8 gm/dL (11.4-16.0); Hypochromasia Slight; Lymphocytes # (A) 0.9 k/uL (1.0-4.8); Lymphocytes % (A) 7 %; MCH 30.3 pg (25.0-35.0); MCHC 31.8 g/dL (31.0-37.0); MCV 95.3 fL (80.0-100.0); Mean Platelet Volume 6.8; Monocytes # (A) 0.9 k/uL (0-1.0); Monocytes % (A) 6 %; Neutrophils % (A) 85 %; Platelet Count 528 k/uL (150-450); RBC 3.58 m/uL (3.80-5.40); RDW 13.3 % (11.5-15.5); WBC 14.1 k/uL (3.8-10.6)
[2023-07-20 05:26] LABS: African American GFR (CKD) >90 (>60 ml/min/1.73 sqM); Anion Gap 6 mmol/L; Blood Urea Nitrogen 22 mg/dL (7-17); Carbon Dioxide 32 mmol/L (22-30); Chloride 107 mmol/L (98-107); Glucose 125 mg/dL (74-99); Non-African American GFR(CKD) >90 (>60 ml/min/1.73 sqM); Potassium 3.7 mmol/L (3.5-5.1); Sodium 145 mmol/L (137-145)
[2023-07-20] MEDS: SODIUM CHLORIDE 0.9% 1,000 ML IV SCH (05:35)
[2023-07-20] MEDS ORDERED: Potassium Replacement Protocol 1 EACH MISC MISCELLANE PRN (05:37)
[2023-07-20] MEDS: carvediloL 12.5 MG TAB PO SCH ×2 (06:59→16:25)
[2023-07-20] MEDS ORDERED: POTASSIUM BICARBONATE/CIT AC 20 MEQ TABLET.EFF NG-TUBE SCH (07:00)
[2023-07-20] MEDS: ALBUTEROL NEBULIZED 2.5 MG/3 ML INHALATION SCH ×4 (08:01→19:59)
[2023-07-20] MEDS: ASPIRIN 81 MG PO SCH (08:35)
[2023-07-20] MEDS: HEPARIN SODIUM,PORCINE 5,000 UNIT/ML 1 ML VIAL SQ SCH ×2 (08:51→20:51)
--- NOTE | 2023-07-20 10:09 | P.CONS ---
History of Present Illness - Reason for Consult Consult date: 07/19/23 Right lung mass Requesting physician: Kulwant Moura - Chief Complaint "I am having shortness of breath" - History of Present Illness Ms. Underwood is a 63-year-old female with concern for a right lung malignancy. Her pertinent history begins with progressive dypsnea, prompting EC presentation. There, CTA chest demonstrated no PE but there was near complete opacification of the right lung with mediastinal adenopathy. She was also noted to be hyponatremic. She underwent bronchoscopy on 07/17/2023, at which time a mass was appreciated involving the right mainstem bronchus and enrike. The lesion was biopised as well as level 4R. Pathology is pending. Following the procedure, she required re-intubation for respiratory decompensation. She was extubated yesterday and is current on BIPAP. She has a significant smoking history. On my evaluation today, she denies previous cancer or radiation therapy. She has never had a pacemaker. She lives alone. Review of Systems as per HPI Past Medical History Past Medical History: Coronary Artery Disease (CAD), Heart Failure, GERD/Reflux, Hyperlipidemia, Hypertension, Myocardial Infarction ([place]) Additional Past Medical History / Comment(s): VOCAL CORD POLYP Last Myocardial Infarction Date:: 2011 History of Any Multi-Drug Resistant Organisms: None Reported Past Surgical History: Heart Catheterization With Stent, Tonsillectomy, Tubal Ligation Additional Past Surgical History / Comment(s): JHON R.K. SX, VOCAL CHORD POLYPS REMOVED x2 Past Anesthesia/Blood Transfusion Reactions: No Reported Reaction Date of Last Stent Placement:: UNK Past Psychological History: No Psychological Hx Reported Smoking Status: Former smoker Past Alcohol Use History: Rare Additional Past Alcohol Use History / Comment(s): STARTED SMOKING AT AGE 17 (1974), SMOKING 1/2PPD FOR 36 YRS. Just quit smoking jun 2023 Past Drug Use History: None Reported - Past Family History Sister(s) Family Medical History: Cancer Medications and Allergies Home Medications Medication Instructions Recorded Confirmed Type Aspirin 81 mg PO DAILY 07/29/14 07/14/23 History Carvedilol 25 mg PO BID 07/29/14 07/14/23 History Furosemide [Lasix] 20 mg PO DAILY 07/29/14 07/14/23 History amLODIPine [Norvasc] 5 mg PO BID 07/29/14 07/14/23 History lisinopriL [Zestril] 10 mg PO DAILY 07/29/14 07/14/23 History Atorvastatin [Lipitor] 80 mg PO HS 08/27/14 07/14/23 History Levofloxacin [Levaquin] 500 mg PO DAILY 07/14/23 07/14/23 History Allergies Allergy/AdvReac Type Severity Reaction Status Date / Time No Known Allergies Allergy Verified 07/17/23 12:37 Physical Exam Vitals: Vital Signs Temp Pulse Resp BP BP Pulse Ox FiO2 07/20/23 08:12 84 07/20/23 08:02 85 07/20/23 05:26 94 L 07/20/23 02:00 165/84 96 07/19/23 22:00 98.6 F 85 146/87 96 07/19/23 20:00 93 L 07/19/23 19:48 89 07/19/23 19:40 97 45 07/19/23 18:00 95 07/19/23 16:00 98.0 F 100 20 138/79 91 L 07/19/23 14:47 88 45 Intake and Output 07/19/23 07/20/23 07/20/23 22:59 06:59 14:59 Intake Total 100 1000 Output Total 250 600 Balance -150 400 Intake: IV 100 1000 Piperacillin-Tazobactam 3 100 .375 gm In Sodium Chloride 0.9% 100 ml @ 25 mls/hr IVPB Q8HR [facility] Rx# :[id number] Sodium Chloride 0.9% 1, 1000 000 ml @ 10 mls/hr IV . Q24H [facility] Rx#:[id number] Output: Urine 250 600 Other: Voiding Method Bedside Commode External Catheter # Voids 1 # Bowel Movements 1 Weight 80.7 kg - Constitutional General appearance: no acute distress - Respiratory on BIPAP - Psychiatric Psychiatric: A&O x's 3, appropriate affect, intact judgment & insight Results CBC & Chem 7: 07/20/23 05:00 07/20/23 05:00 Labs: Abnormal Lab Results - Last 24 Hours (Table) 07/20/23 07/20/23 Range/Units 05:00 05:00 WBC 14.1 H (3.8-10.6) k/uL RBC 3.58 L (3.80-5.40) m/uL Hgb 10.8 L (11.4-16.0) gm/dL Plt Count 528 H (150-450) k/uL Neutrophils # 12.0 H (1.3-7.7) k/uL Lymphocytes # 0.9 L (1.0-4.8) k/uL Carbon Dioxide 32 H (22-30) mmol/L BUN 22 H (7-17) mg/dL Creatinine 0.41 L (0.52-1.04) mg/dL Glucose 125 H (74-99) mg/dL Microbiology - Last 24 Hours (Table) 07/17/23 13:00 Gram Stain - Final Bronchial Washings - Right Bronchial Washings Culture - Final Assessment and Plan Assessment: Ms. Underwood is a 63-year-old female with concern for a right lung malignancy. Plan: The patient presents with clinical picture consistent with lung cancer. She is status post bronchoscopy with pathology pending. The patient is not stable from a respiratory standpoint. On review of her CT imaging, the right lung is nearly completely opacificed and I do suspect her breathing difficulties are due to the mass. Depending on the results of the pathology, she may require urgent treatment if her condition does not improve. Of note, her code status was recently changed to DNR. If she does stabilize, and is found to have lung cancer, she will require MRI brain and PET/CT for staging. I will await final pathology and make updated recommendations. Caden Oneill MD Radiation Oncology Time with Patient: Greater than 30
[2023-07-20] MEDS ORDERED: DEXAMETHASONE SOD PHOSPHATE 4 MG/ML 1 ML VIAL IVP PRN (10:42)
--- NOTE | 2023-07-20 10:54 | P.PN ---
Subjective Progress Note Date: 07/20/23 Principal diagnosis: lung mass This is a 63-year-old female patient, a chronic smoker started age of 18 and she quit smoking approximately 2 months ago. She presented emergency department was a 3 days history of shortness of breath. CAT scan of the chest was done in the emergency department and the patient was found to have extensive mediastinal lymphadenopathy and this is present in the right paratracheal area, right hilum, subcarinal area and the patient has mass effect with significant narrowing of the distal right main stem bronchus and bronchus intermedius and airways completely occluded past the distal right main stem. As such, the patient has extensive atelectatic changes in the right middle lobe and the right lower lobe with a small right-sided pleural effusion. Presentation is highly suspicious for small cell lung cancer. No evidence of any pulmonary embolism. The patient has of the discomfort of 14.2, sodium is at 131 initially at 128 probably rel ated to SIADH. Troponins are negative. Pro-calcitonin level is at 12.8. She is afebrile. Hemodynamically stable. Pulse ox is 95% liters of oxygen by nasal cannula. No hemoptysis. 20 pounds weight loss. The patient is seen today 07/16/2023 in follow-up on the regular medical floor. She is awake and alert in no acute distress. She is maintaining good O2 saturations in the mid 90s on 2 L/m per nasal cannula. She's afebrile. Hemodynamically stable. No new labs today. She is continued on Zosyn. Heparin for DVT prophylaxis. Normal saline at 75 ML's per hour. Based on the above mentioned computed tomography scan findings we will plan for bronchoscopy and probable biopsies tomorrow. The patient is seen today 07/17/2023 in follow-up on the regular medical floor. She is currently sitting up in a chair at the bedside. Awake and alert in no acute distress. She is maintaining O2 saturations in the 90s on 3 L/m per nasal cannula. She's been afebrile. Hemodynamically stable. Blood cultures reveal no growth. White count 12.8. Hemoglobin 11.3. Platelets 517. Sodium 140. P otassium 4.1. Bicarb 28. BUN 17. Creatinine 0.6. Glucose 104. Remains on antibiotics in form of Zosyn. Plan is for bronchoscopy with biopsies today 07/17/23 Patient underwent bronchoscopy and there was evidence of complete obstruction of the right mainstem bronchus and right upper lobe bronchus, there was evidence of endobronchial tumor, cauliflower-shaped tumor involving the enrike, right upper lobe bronchus, right mainstem bronchus, and there was no visualization of the right upper lobe or right middle lobe or right lower lobe. Procedure was done, patient underwent multiple biopsies of the endobronchial tumor, brushings were done, au needle aspiration of 4R lymph node done. The procedure was well- tolerated, however the patient was extubated in the recovery room, however she had to be reintubated because she was acting confused and her O2 saturations were running low. Patient was placed back on mechanical ventilation with assist control rate of 24, tidal volume to 50, FiO2 on the percent, PEEP of 5. Patient will be transferred to the ICU, she would be kept on mechanical ventilation tonight, and will likely address weaning and extubation to BiPAP in the next 24 hours. Patient does have significant underlying COPD and I believe extubating the patient to BiPAP would be reasonable. In the meantime we will support the patient on mechanical ventilation, and we will address weaning and extubation in the next 24 hours. Patient was reevaluated today on 07/18/23, patient underwent bronchoscopy and multiple endobronchial biopsies of a large tumor completely occluding the right mainstem bronchus, right upper lobe, and she had to transfer enrike needle aspiration of lymph nodes. Patient was extubated after the procedure however she did not tolerate the extubation and she had to be reintubated by DIRECTOR OF [employer]. Patient was admitted to the ICU overnight, and I'm seeing her today, patient remains intubated and mechanically ventilated. She is on assist control rate of 26 tidal volume to 50 FiO2 45% and PEEP of 5 ABG showed a pO2 of 79 pCO2 50 pH of 7.40. Chest x-ray continues to show complete opacification of the right lung, left lung seems to be relatively clear. Patient is on propofol at 35 mcg/kg/m she is also on IV fluid at 100 mL per hour. After evaluating the patient, I recommended stopping propofol, patient was given a trial of pressure support of 12 and CPAP, and she was tolerating the weaning well. And I extubated the patient to BiPAP, 12/6/40%, and I will follow along next to the patient evaluating her pulmonary status during this transition from mechanical ventilation to BiPAP. Patient seemed to do better on BiPAP, hence we'll keep her on BiPAP today, and we will continue bronchodilators, we will continue her IV fluids, and awaiting final pathology from her recent endobronchial biopsies. Overall prognosis considering the findings on the bronchoscopy yesterday, is extremely poor She was seen and examined today on 07/19/23, patient remains in the ICU, she was extubated yesterday successfully, presently on nasal cannula at 8 L/m, however she was on BiPAP at night 12/6/45%. O2 saturations in the mid 90s I cut her down to 5 L nasal cannula, patient did not sleep well last night. IV fluid is cut down to KVO, patient is eating and drinking pathology from the bronchoscopy is still pending however in the meantime I'm recommending consultation with oncology and with radiation oncology. Chest x-ray continues to show complete opacification of the right hemithorax. No infiltrate in the left lung. WBC count is 15.7 hemoglobin is 11.1, basic metabolic profile is normal, renal profile is normal Patient was seen and examined today on 07/20/23, patient remains in the ICU, she is supposedly overflow, but overnight she developed worsening shortness of breath and she had to be placed on BiPAP, she remains on BiPAP this morning. She is on 12/6/45%, remains on Zosyn, remains on bronchodilators, and today I went ahead and added Decadron. Patient was seen by oncology, and again we are waiting for the tissue diagnosis/biopsy. Overall clinical picture does not look very promising, patient is marginal at best. And I did discuss the CODE STATUS with the patient yesterday, and she definitely wants to be DO NOT RESUSCITATE CODE STATUS. I will try to reach her son Christophe sometime later today and discussed her condition with him also. WBC count is 14.1 hemoglobin is 10.8, basic metabolic profile is normal sodium is up to 145. And renal profile is normal Objective - Vital Signs Vital signs: Vital Signs Temp 97.2 F L 07/20/23 10:44 Pulse 83 07/20/23 10:44 Resp 28 H 07/20/23 10:44 BP 122/77 07/20/23 10:44 Pulse Ox 91 L 07/20/23 10:44 FiO2 45 07/19/23 19:40 Intake & Output 07/19/23 07/20/23 07/20/23 18:59 06:59 18:59 Intake Total 460 1000 Output Total 760 600 Balance -300 400 Weight 79.5 kg 80.7 kg Intake: IV 460 1000 Piperacillin-Tazobactam 3 200 .375 gm In Sodium Chloride 0.9% 100 ml @ 25 mls/hr IVPB Q8HR [facility] Rx# :[id number] Sodium Chloride 0.9% 1, 260 1000 000 ml @ 10 mls/hr IV . Q24H [facility] Rx#:[id number] Output: Urine 760 600 Other: Voiding Method Bedside Commode Bedside Commode External Catheter External Catheter # Voids 1 # Bowel Movements 1 - Exam Physical Exam: Revealed a 63-year-old female obese, in no distress, on BiPAP 08/22/45% Head: Atraumatic, normocephalic. HEENT:[Neck is supple.] [No neck masses.] [No thyromegaly.] [No JVD.] Chest: [Extremely diminished breath sounds on the right side, left side is relatively clear. Cardiac Exam: [Normal S1 and S2, no S3 gallop, no murmur.] Abdomen: [Obese, Soft, nontender, no megaly, no rebound, no guarding, normal bowel sounds.] Extremities: [No clubbing, no edema, no cyanosis.] Neurological Exam: Patient is lethargic but arousable and follows simple instructions. Psychiatric: Lethargic, flat affect, but normal mental status examination. Skin: No rashes - Labs CBC & Chem 7: 07/20/23 05:00 07/20/23 05:00 Labs: Abnormal Lab Results - Last 24 Hours (Table) 07/20/23 07/20/23 Range/Units 05:00 05:00 WBC 14.1 H (3.8-10.6) k/uL RBC 3.58 L (3.80-5.40) m/uL Hgb 10.8 L (11.4-16.0) gm/dL Plt Count 528 H (150-450) k/uL Neutrophils # 12.0 H (1.3-7.7) k/uL Lymphocytes # 0.9 L (1.0-4.8) k/uL Carbon Dioxide 32 H (22-30) mmol/L BUN 22 H (7-17) mg/dL Creatinine 0.41 L (0.52-1.04) mg/dL Glucose 125 H (74-99) mg/dL Microbiology - Last 24 Hours (Table) 07/17/23 13:00 Gram Stain - Final Bronchial Washings - Right Bronchial Washings Culture - Final Assessment and Plan Assessment: Impression: Acute hypoxic and hypercapnic respiratory failure, post bronchoscopy, expected, requiring reintubation after the bronchoscopy and keeping the patient in the ICU overnight. This is related to her underlying COPD, also related to her underlying lung mass and significant opacification of the right lung secondary to lung mass, and also related to her hilar adenopathy. This is all consistent with COPD and underlying bronchogenic carcinoma most likely squamous cell lung cancer Hyponatremia secondary to SIADH, resolved Postobstructive pneumonia is also suspected Chronic smoker Suspect severe underlying COPD Coronary artery disease and previous stent of LAD Benign essential hypertension Recommendation: Transfer patient to medical surgical floor Seen by medical oncology and radiation: We will add Decadron for this patient, Patient may need MRI for possible metastatic lesions on the brain from her presumptive bronchogenic carcinoma Continue Zosyn and bronchodilators Add Symbicort. Use BiPAP at night or as needed Continue bronchodilators Awaiting the pathology report from her endobronchial biopsies and au needle aspiration of transfer enrike lymph node zone 4 R Continue to follow Time with Patient: Less than 30
--- NOTE | 2023-07-20 15:08 | P.PN ---
Subjective Progress Note Date: 07/20/23 Principal diagnosis: lung mass Patient was seen in the ICU at today's visit. Patient is sitting in bedside chair and is reporting improvement in breathing. Breathing is still labored. S/P bronch with biopsy, path pending Objective - Vital Signs Vital signs: Vital Signs Temp 97.2 F L 07/20/23 10:44 Pulse 80 07/20/23 11:54 Resp 28 H 07/20/23 10:44 BP 122/77 07/20/23 10:44 Pulse Ox 91 L 07/20/23 10:44 FiO2 45 07/19/23 19:40 Intake & Output 07/19/23 07/20/23 07/20/23 18:59 06:59 18:59 Intake Total 460 1000 100 Output Total 760 600 200 Balance -300 400 -100 Weight 79.5 kg 80.7 kg Intake: IV 460 1000 100 Piperacillin-Tazobactam 3 200 100 .375 gm In Sodium Chloride 0.9% 100 ml @ 25 mls/hr IVPB Q8HR [facility] Rx# :[id number] Sodium Chloride 0.9% 1, 260 1000 000 ml @ 10 mls/hr IV . Q24H [facility] Rx#:[id number] Output: Urine 760 600 200 Other: Voiding Method Bedside Commode Bedside Commode Bedside Commode External Catheter External Catheter External Catheter # Voids 1 # Bowel Movements 1 1 - Constitutional General appearance: Present: average body habitus, mild distress - EENT Eyes: Present: anicteric sclerae, EOMI ENT: Present: hearing grossly normal - Respiratory Details: breathing labored - Cardiovascular Details: skin warm and dry - Integumentary Integumentary: Absent: cyanotic - Musculoskeletal Musculoskeletal: Present: generalized weakness - Psychiatric Psychiatric: Present: A&O x's 3, appropriate affect, intact judgment & insight - Labs CBC & Chem 7: 07/20/23 05:00 07/20/23 05:00 Labs: Abnormal Lab Results - Last 24 Hours (Table) 07/20/23 07/20/23 Range/Units 05:00 05:00 WBC 14.1 H (3.8-10.6) k/uL RBC 3.58 L (3.80-5.40) m/uL Hgb 10.8 L (11.4-16.0) gm/dL Plt Count 528 H (150-450) k/uL Neutrophils # 12.0 H (1.3-7.7) k/uL Lymphocytes # 0.9 L (1.0-4.8) k/uL Carbon Dioxide 32 H (22-30) mmol/L BUN 22 H (7-17) mg/dL Creatinine 0.41 L (0.52-1.04) mg/dL Glucose 125 H (74-99) mg/dL Assessment and Plan (1) Acute exacerbation of chronic obstructive pulmonary disease Current Visit: Yes Status: Acute Code(s): J44.1 - CHRONIC OBSTRUCTIVE PULMONARY DISEASE W (ACUTE) EXACERBATION SNOMED Code(s): 704147211 (2) Lung mass Current Visit: Yes Status: Acute Code(s): R91.8 - OTHER NONSPECIFIC ABNORMAL FINDING OF LUNG FIELD SNOMED Code(s): 499473149 Plan: Right lung mass: -Significant history of COPD and nicotine abuse, with 40 pack years. Progressive shortness of breath since May after being diagnosed with COVID -CTA chest revealed no acute pulmonary embolism. Poor vascularity on the right with a large right pleural effusion with compressive atelectasis at the lung bases and apparent consolidation within right upper lung field. Consideration for underlying mass. Enlarged mediastinal adenopathy. -Patient underwent bronchoscopy with biopsy yesterday with endobronchial tumor noted. Pathology and cytology have been sent, results pending -Rad onc consult placed, note reviewed. Will plan for RT once pt more stable -Once breathing stabilized will obtain MRI brain. -PET CT will be scheduled outpt, and NGS and PDL1 will be requested on pathology -Clinic f/u will be scheduled upon discharge COPD exacerbation: -Pulm following, continues on inhaler and zosyn
[2023-07-20] MEDS ORDERED: ACETAMINOPHEN IV (For NPO) 1,000 MG in EMPTY BAG 1 BAG IVPB PRN (19:01)
--- NOTE | 2023-07-20 19:15 | P.PN ---
Subjective Progress Note Date: 07/20/23 This is a pleasant 63 years old female with past medical history of Coronary Artery Disease s/p stenting, Heart Failure, GERD/Reflux, Hyperlipidemia, Hypertension, her PCP is Dr. Navarrete and probate judge Dr. Neff for her history of coronary artery disease status post stent Patient presents because of worsening dyspnea over 3 days especially with exertion she has to stop to catch up with her breath. No significant chest pain and no significant coughing No other urinary GI symptoms. No dizziness weakness or numbness. She quit smoking about 2 months ago, lately she used to smoke 5 cigarettes per day. No alcohol or illicit drugs. She is hemodynamically stable, afebrile saturating well on 2 L oxygen via nasal cannula Labs showed mild leukocytosis of 13 and 14,000. Sodium markedly low at 1.8 and 131. ProBNP is low at 178. Troponin were unremarkable. Labs including CBC, BMP liver enzymes are unremarkable EKG showing normal sinus rhythm at 85 CT of the lung showing normal pulmonary embolism and rule out right pleural effusion with right lung consolidation suspicious for a mass. 07/16/2023 Patient is awake and alert. He is getting breathing treatments, she is mild respiratory distress while she is sitting in her chair. Her pro-calcitonin significantly elevated at 12.8. Currently she is covered with IV Zosyn and normal saline 75 mL/h. Plan for bronchoscopy tomorrow as patient is highly suspicious for lung cancer We'll give Xanax when necessary for anxiety 07/17/2023 patient has more respiratory difficulty today and she has some difficulty talking. While she was sitting in bed. She is mildly tachycardic. Heart rhythm rate 20-24, she is saturating 97% on 3 L oxygen via nasal cannula. WBC 12,000, sodium is normal at 140. Pulmonary team are planning for bronchoscopy today and possible biopsy for her right lung mass 07/18/2023 Patient seen and evaluated in follow-up maintained in the ICU was on mechanical ventilation and recently just extubated 30 minutes ago maintained on BiPAP. Patient is receiving IV hydration also maintained on Lasix and will discontinue the Lasix and monitor closely with follow-up labs and continue hydration for now. Patient's blood pressures are on the lower side as well and will hold blood pressure medications and resume as needed. Chest x-ray today shows complete opacification patient on the right with pulmonary staffing clerk following closely. PEEP of 6 and FiO2 is 40% on BiPAP and will continue. Patient is status post bronchoscopy and biopsies are pending at this time. Patient is afebrile and also continued on empirically Zosyn. Patient is responsive and able to follow commands and answer questions appropriately. Recommend follow-up labs in the a.m. 07/19/2023 Patient is seen and evaluated in follow-up today and continues to be in the ICU is a downgrade awaiting a Medr bed currently.patient using BiPAP intermittently as needed at night and titrating down currently on 6 L via nasal cannula. CODE STATUS was addressed with pulmonary and patient is currently no code. Patient is afebrile with no worsening shortness of breath although does continue to be quite dyspneic on exam. Patient also having some coughing spells and reports some difficulty with swallowing medications and food and will have speech evaluate with a swallow assessment. Will have PT/OT therapy evaluate the patient as well as patient is significantly weak. 07/20/2023 Patient is seen and evaluated in follow-up this morning currently sitting up in the chair has been working with physical therapy maintained on 6-8 L high flow oxygen and being weaned as tolerated. Speech at bedside to evaluate the patient and patient has significant dysphasia and almost no swallowing capability recommending nothing by mouth. Patient okay for ice chips at this point. Patient reports her breathing is about the same and has not gotten significantly worse although continues to be extremely dyspneic with minimal exertion. Patient denies any pain and denies chest pain or palpitations. Patient is afebrile white count slightly improved and patient is maintained on empiric antibiotics. Pathology remains pending and oncology along with radiation onc ology was consulted. Overall poor prognosis. Review of systems: Constitutional: No reports of fatigue, fever, or chills Cardiovascular: No reports of chest pain or palpitations Respiratory: reports of shortness of breath with a weak cough GI: No reports of nausea, vomiting, or diarrhea, reports continued difficulty with swallowing : No reports of dysuria or retention Neurovascular: reports of generalized weakness All medications have been reviewed Physical exam: GENERAL: The patient is awake, alert and oriented x3, not in any acute distress. Well developed, well nourished. Intermittently on BiPAP at night and transitioning down to 6-8 L nasal cannula HEENT: Pupils are round and equally reacting to light. EOMI. No scleral icterus. No conjunctival pallor. Normocephalic, atraumatic. No pharyngeal erythema. No thyromegaly. CARDIOVASCULAR: S1 and S2 muffled PULMONARY: Diminished breath sounds on the right otherwise Chest is clear to auscultation, no wheezing , no crackles. Coarse rhonchi noted ABDOMEN: Soft, nontender, nondistended, normoactive bowel sounds. No palpable or ganomegaly. MUSCULOSKELETAL: No joint swelling or deformity. EXTREMITIES: No cyanosis, clubbing, or pedal edema. NEUROLOGICAL: Gross neurological examination did not reveal any focal deficits. Diffusely weak SKIN: No rashes. no petechiae. Assessment: Extensive Right lung mass status post bronchoscopy with pathology pending versus consolidation with large right pleural effusion and compressive atelectasis Acute hypoxic respiratory failure secondary to COPD as well as right lung mass status post bronchoscopy Mediastinal lymphadenopathy Possible post obstructive pneumonia is suspected Severe dysphasia Continued ongoing nicotine dependence History of severe COPD Hypertension Hyperlipidemia Chronic heart failure History of coronary artery disease status post stenting Obesity with BMI 32.0 GI prophylaxis DVT prophylaxis No code Plan: Patient continues in the ICU and awaiting a MedSur bed as patient has been downgraded from the ICU. Patient has been using intermittent BiPAP and transitioning to 6-8 L via nasal cannula. Patient reports she does not wear oxygen outpatient and has extensive COPD underwent a bronchoscopy had some difficulties requiring reintubation. Pulmonary staffing clerk following closely maintained on empiric antibiotics at this time along with albuterol treatments. Concerns for postobstructive pneumonia complete opacification noted on the right on recent chest x-ray Will follow-up on repeat labs and replace electrolytes per protocol. Patient was having a choking episode on water and reports to having some difficulty in swallowing pills and food and liquids. Speech evaluated the patient recommending nothing by mouth as patient has severe dysphasia and absent swallow. Patient okay for minimal ice chips. Patient is extremely high risk for aspiration and this was explained in detail to family along with patient and nursing staff at the bedside by speech therapy Pathology is pending status post bronchoscopy Pulmonary staffing clerk following and has consulted oncology along with radiation oncology for their input and recommendations Overall prognosis is poor and guarded at this time and carcinoma is highly suspected CODE STATUS was addressed and patient wishes to be no code PT/OT therapy to follow The impression and plan of care has been dictated by Jaida Dolan, Nurse Practitioner as directed. MD Jc I have performed a history and examination and MDM of this patient, discussed the same with the dictator, and agree with the dictator's assessment and plan as written ,documented as a scribe. Based on total visit time, I have performed more than 50% of the visit. Objective - Vital Signs Vital signs: Vital Signs Temp 97.8 F 07/20/23 16:43 Pulse 95 07/20/23 16:43 Resp 24 07/20/23 16:43 BP 121/74 07/20/23 16:43 Pulse Ox 94 L 07/20/23 16:43 FiO2 45 07/19/23 19:40 Intake & Output 07/20/23 07/20/23 07/21/23 06:59 18:59 06:59 Intake Total 1000 200 Output Total 600 400 Balance 400 -200 Weight 80.7 kg Intake: IV 1000 200 Piperacillin-Tazobactam 3 200 .375 gm In Sodium Chloride 0.9% 100 ml @ 25 mls/hr IVPB Q8HR [facility] Rx# :[id number] Sodium Chloride 0.9% 1, 1000 000 ml @ 10 mls/hr IV . Q24H [facility] Rx#:[id number] Output: Urine 600 400 Other: Voiding Method Bedside Commode Bedside Commode External Catheter External Catheter # Voids 1 # Bowel Movements 1 - Labs CBC & Chem 7: 07/20/23 05:00 07/20/23 05:00 Labs: Abnormal Lab Results - Last 24 Hours (Table) 07/20/23 07/20/23 Range/Units 05:00 05:00 WBC 14.1 H (3.8-10.6) k/uL RBC 3.58 L (3.80-5.40) m/uL Hgb 10.8 L (11.4-16.0) gm/dL Plt Count 528 H (150-450) k/uL Neutrophils # 12.0 H (1.3-7.7) k/uL Lymphocytes # 0.9 L (1.0-4.8) k/uL Carbon Dioxide 32 H (22-30) mmol/L BUN 22 H (7-17) mg/dL Creatinine 0.41 L (0.52-1.04) mg/dL Glucose 125 H (74-99) mg/dL
[2023-07-20] MEDS: SYMBICORT 160-4.5 MCG INHALER INHALATION SCH (19:59)
[2023-07-21] MEDS: ALPRAZolam 0.25 MG TAB PO SCH ×2 (01:36→20:24)
[2023-07-21] MEDS: SODIUM CHLORIDE 0.9% 1,000 ML IV SCH (05:09)
[2023-07-21 06:09] LABS: Basophils % (A) 0 %; Eosinophils # (A) 0.1 k/uL (0-0.7); Eosinophils % (A) 0 %; HCT 35.7 % (34.0-46.0); HGB 11.1 gm/dL (11.4-16.0); Hypochromasia Moderate; Lymphocytes # (A) 0.8 k/uL (1.0-4.8); Lymphocytes % (A) 6 %; MCV 96.5 fL (80.0-100.0); Mean Platelet Volume 7.3; Monocytes # (A) 0.5 k/uL (0-1.0); Monocytes % (A) 4 %; Neutrophils # (A) 12.3 k/uL (1.3-7.7); Neutrophils % (A) 89 %; Platelet Count 512 k/uL (150-450); RDW 13.4 % (11.5-15.5); WBC 13.8 k/uL (3.8-10.6)
[2023-07-21 06:22] LABS: African American GFR (CKD) >90 (>60 ml/min/1.73 sqM); Anion Gap 7 mmol/L; Blood Urea Nitrogen 23 mg/dL (7-17); Calcium 9.2 mg/dL (8.4-10.2); Carbon Dioxide 35 mmol/L (22-30); Chloride 108 mmol/L (98-107); Glucose 95 mg/dL (74-99); Non-African American GFR(CKD) >90 (>60 ml/min/1.73 sqM); Sodium 150 mmol/L (137-145)
[2023-07-21] MEDS: ALBUTEROL NEBULIZED 2.5 MG/3 ML INHALATION SCH ×4 (07:48→19:48)
[2023-07-21] MEDS: SYMBICORT 160-4.5 MCG INHALER INHALATION SCH ×2 (07:49→19:48)
[2023-07-21] MEDS: HEPARIN SODIUM,PORCINE 5,000 UNIT/ML 1 ML VIAL SQ SCH ×2 (08:09→20:24)
[2023-07-21] MEDS: PIPERACILLIN-TAZOBACTAM 3.375 GM in SODIUM CHLORIDE 0.9% 100 ML IVPB SCH ×2 (08:09→16:10)
[2023-07-21] MEDS ORDERED: DEXTROSE 5% IN WATER 1,000 ML IV ONE (10:24)
--- NOTE | 2023-07-21 11:36 | P.PN ---
Subjective Progress Note Date: 07/21/23 This is a 63-year-old female patient, a chronic smoker started age of 18 and she quit smoking approximately 2 months ago. She presented emergency department was a 3 days history of shortness of breath. CAT scan of the chest was done in the emergency department and the patient was found to have extensive mediastinal lymphadenopathy and this is present in the right paratracheal area, right hilum, subcarinal area and the patient has mass effect with significant narrowing of the distal right main stem bronchus and bronchus intermedius and airways completely occluded past the distal right main stem. As such, the patient has extensive atelectatic changes in the right middle lobe and the right lower lobe with a small right-sided pleural effusion. Presentation is highly suspicious for small cell lung cancer. No evidence of any pulmonary embolism. The patient has of the discomfort of 14.2, sodium is at 131 initially at 128 probably related to SIADH. Troponins are negative. Pro-calcitonin level is at 12.8. She is afebrile. Hemodynamically stable. Pulse ox is 95% liters of oxygen by nasal cannula. No hemoptysis. 20 pounds weight loss. The patient is seen today 07/16/2023 in follow-up on the regular medical floor. She is awake and alert in no acute distress. She is maintaining good O2 saturations in the mid 90s on 2 L/m per nasal cannula. She's afebrile. Hemodynamically stable. No new labs today. She is continued on Zosyn. Heparin for DVT prophylaxis. Normal saline at 75 ML's per hour. Based on the above mentioned computed tomography scan findings we will plan for bronchoscopy and probable biopsies tomorrow. The patient is seen today 07/17/2023 in follow-up on the regular medical floor. She is currently sitting up in a chair at the bedside. Awake and alert in no acute distress. She is maintaining O2 saturations in the 90s on 3 L/m per nasal cannula. She's been afebrile. Hemodynamically stable. Blood cultures reveal no growth. White count 12.8. Hemoglobin 11.3. Platelets 517. Sodium 140. Potassium 4.1. Bicarb 28. BUN 17. Creatinine 0.6. Glucose 104. Remains on antibiotics in form of Zosyn. Plan is for bronchoscopy with biopsies today 07/17/23 Patient underwent bronchoscopy and there was evidence of complete obstruction of the right mainstem bronchus and right upper lobe bronchus, there was evidence of endobronchial tumor, cauliflower-shaped tumor involving the enrike, right upper lobe bronchus, right mainstem bronchus, and there was no visualization of the right upper lobe or right middle lobe or right lower lobe. Procedure was done, patient underwent multiple biopsies of the endobronchial tumor, brushings were done, au needle aspiration of 4R lymph node done. The procedure was well- tolerated, however the patient was extubated in the recovery room, however she had to be reintubated because she was acting confused and her O2 saturations were running low. Patient was placed back on mechanical ventilation with assist control rate of 24, tidal volume to 50, FiO2 on the percent, PEEP of 5. Patient will be transferred to the ICU, she would be kept on mechanical ventilation tonight, and will likely address weaning and extubation to BiPAP in the next 24 hours. Patient does have significant underlying COPD and I believe extubating the patient to BiPAP would be reasonable. In the meantime we will support the patient on mechanical ventilation, and we will address weaning and extubation in the next 24 hours. Patient was reevaluated today on 07/18/23, patient underwent bronchoscopy and multiple endobronchial biopsies of a large tumor completely occluding the right mainstem bronchus, right upper lobe, and she had to transfer enrike needle aspiration of lymph nodes. Patient was extubated after the procedure however she did not tolerate the extubation and she had to be reintubated by MRI ASSISTANT. Patient was admitted to the ICU overnight, and I'm seeing her today, patient remains intubated and mechanically ventilated. She is on assist control rate of 26 tidal volume to 50 FiO2 45% and PEEP of 5 ABG showed a pO2 of 79 pCO2 50 pH of 7.40. Chest x-ray continues to show complete opacification of the right lung, left lung seems to be relatively clear. Patient is on propofol at 35 mcg/kg/m she is also on IV fluid at 100 mL per hour. After evaluating the patient, I recommended stopping propofol, patient was given a trial of pressure support of 12 and CPAP, and she was tolerating the weaning well. And I extub ated the patient to BiPAP, 12//40%, and I will follow along next to the patient evaluating her pulmonary status during this transition from mechanical ventilation to BiPAP. Patient seemed to do better on BiPAP, hence we'll keep her on BiPAP today, and we will continue bronchodilators, we will continue her IV fluids, and awaiting final pathology from her recent endobronchial biopsies. Overall prognosis considering the findings on the bronchoscopy yesterday, is extremely poor She was seen and examined today on 07/19/23, patient remains in the ICU, she was extubated yesterday successfully, presently on nasal cannula at 8 L/m, however she was on BiPAP at night 12/6/45%. O2 saturations in the mid 90s I cut her down to 5 L nasal cannula, patient did not sleep well last night. IV fluid is c ut down to KVO, patient is eating and drinking pathology from the bronchoscopy is still pending however in the meantime I'm recommending consultation with oncology and with radiation oncology. Chest x-ray continues to show complete opacification of the right hemithorax. No infiltrate in the left lung. WBC count is 15.7 hemoglobin is 11.1, basic metabolic profile is normal, renal profile is normal Patient was seen and examined today on 07/20/23, patient remains in the ICU, she is supposedly overflow, but overnight she developed worsening shortness of breath and she had to be placed on BiPAP, she remains on BiPAP this morning. She is on 12/6/45%, remains on Zosyn, remains on bronchodilators, and today I went ahead and added Decadron. Patient was seen by oncology, and again we are waiting for the tissue diagnosis/biopsy. Overall clinical picture does not look very promising, patient is marginal at best. And I did discuss the CODE STATUS with the patient yesterday, and she definitely wants to be DO NOT RESUSCITATE CODE STATUS. I will try to reach her son Christophe sometime later today and discussed her condition with him also. WBC count is 14.1 hemoglobin is 10.8, basic metabolic profile is normal sodium is up to 145. And renal profile is normal The patient is seen today 07/21/2023 in follow-up on the regular medical floor. Awake and alert in no acute distress. She is currently sitting up in a chair at the bedside. She is having difficulty breathing when lying in bed. She is maintaining O2 saturations in the 90s on 7 L high flow nasal cannula. She currently denies any worsening shortness of breath, cough or congestion. She denies any pain. Her family is at the bedside. Blood cultures revealed no growth. Bronchial wash cultures reveal no growth. Pathology is pending from biopsies. White count 13.8. Hemoglobin 11.1. Platelets 512. Sodium 130. Potassium 4.0. Bicarb 35. BUN 23. Creatinine 0.42. She remains on Symbicort, albuterol, Decadron. Heparin for DVT prophylaxis. Normal saline at [facility]. Antibiotics in the form of Zosyn. Objective - Vital Signs Vital signs: Vital Signs Temp 98.0 F 07/21/23 07:10 Pulse 92 07/21/23 08:01 Resp 20 07/21/23 09:51 BP 127/76 07/21/23 07:10 Pulse Ox 98 07/21/23 07:10 FiO2 45 07/19/23 19:40 Intake & Output 07/20/23 07/21/23 07/21/23 18:59 06:59 18:59 Intake Total 200 Output Total 400 Balance -200 Intake: IV 200 Piperacillin-Tazobactam 3 200 .375 gm In Sodium Chloride 0.9% 100 ml @ 25 mls/hr IVPB Q8HR [facility] Rx# :[id number] Output: Urine 400 Other: Voiding Method Bedside Commode Bedside Commode External Catheter External Catheter # Voids 1 # Bowel Movements 1 - Exam GENERAL EXAM: Alert, pleasant 63-year-old female, up in a chair, on 7 L high flow nasal cannula, comfortable in no apparent distress. HEAD: Normocephalic. EYES: Normal reaction of pupils, equal size. NOSE: Clear with pink turbinates. THROAT: No erythema or exudates. NECK: No masses, no JVD. CHEST: No chest wall deformity. LUNGS: Equal air entry with diminished breath sounds throughout the right lung. Left lung is clear. CVS: S1 and S2 normal with no audible murmur, regular rhythm. ABDOMEN: No hepatosplenomegaly, normal bowel sounds, no guarding or rigidity. SPINE: No scoliosis or deformity SKIN: No rashes CENTRAL NERVOUS SYSTEM: No focal deficits, tone is normal in all 4 extremities. EXTREMITIES: There is no peripheral edema. No clubbing, no cyanosis. Peripheral pulses are intact. - Labs CBC & Chem 7: 07/21/23 05:39 07/21/23 05:39 Labs: Abnormal Lab Results - Last 24 Hours (Table) 07/21/23 07/21/23 Range/Units 05:39 05:39 WBC 13.8 H (3.8-10.6) k/uL RBC 3.70 L (3.80-5.40) m/uL Hgb 11.1 L (11.4-16.0) gm/dL Plt Count 512 H (150-450) k/uL Neutrophils # 12.3 H (1.3-7.7) k/uL Lymphocytes # 0.8 L (1.0-4.8) k/uL Sodium 150 H (137-145) mmol/L Chloride 108 H (98-107) mmol/L Carbon Dioxide 35 H (22-30) mmol/L BUN 23 H (7-17) mg/dL Creatinine 0.42 L (0.52-1.04) mg/dL Microbiology - Last 24 Hours (Table) 07/15/23 17:00 Blood Culture - Final Blood 07/15/23 17:15 Blood Culture - Final Blood Assessment and Plan Assessment: Mediastinal mass involving the right paratracheal area extending into the subcarinal area causing mass effect and complete occlusion of the right distal main stem bronchus and bronchus intermedius and causing atelectasis of the right middle lobe and the right lower lobe with a small right-sided pleural effusion. The mass most likely originated from the hilar and caused significant local progression and mass effect involving the right main stem distally and bronchus intermedius. Acute hypoxic and hypercapnic respiratory failure, post bronchoscopy, expected, requiring reintubation after the bronchoscopy and keeping the patient in the ICU overnight. This is related to her underlying COPD, also related to her underlying lung mass and significant opacification of the right lung secondary to lung mass, and also related to her hilar adenopathy. This is all consistent with COPD and underlying bronchogenic carcinoma most likely squamous cell lung cancer Hypernatremia, sodium 150 following previous hyponatremia corrected Elevated pro-calcitonin level, consider possibility of postobstructive pneumonia involving the right lung area currently on Zosyn Chronic smoker Coronary artery disease, prior stenting of the LAD Hypertension Hyperlipidemia Shortness of breath secondary to above Acute hypoxic respiratory failure secondary to above Plan: The patient was seen and evaluated Medications and labs reviewed Currently on 7 L high flow nasal cannula Continued on Zosyn IV D5W at 50 MLS per hour Continue Zosyn and bronchodilators DO NOT RESUSCITATE/DO NOT INTUBATE CODE STATUS Prognosis is quite guarded Family is at the bedside Pathology pending Medical and radiation oncology following We will continue to follow I have personally seen and examined the patient, performed the documentation and the assessment and plan as written. Number of minutes spent on the visit: 10.
--- NOTE | 2023-07-21 13:28 | P.PN ---
Subjective Progress Note Date: 07/21/23 This is a pleasant 63 years old female with past medical history of Coronary Artery Disease s/p stenting, Heart Failure, GERD/Reflux, Hyperlipidemia, Hypertension, her PCP is Dr. Navarrete and gear machine operator general Dr. Neff for her history of coronary artery disease status post stent Patient presents because of worsening dyspnea over 3 days especially with exertion she has to stop to catch up with her breath. No significant chest pain and no significant coughing No other urinary GI symptoms. No dizziness weakness or numbness. She quit smoking about 2 months ago, lately she used to smoke 5 cigarettes per day. No alcohol or illicit drugs. She is hemodynamically stable, afebrile saturating well on 2 L oxygen via nasal cannula Labs showed mild leukocytosis of 13 and 14,000. Sodium markedly low at 1.8 and 131. ProBNP is low at 178. Troponin were unremarkable. Labs including CBC, BMP liver enzymes are unremarkable EKG showing normal sinus rhythm at 85 CT of the lung showing normal pulmonary embolism and rule out right pleural effusion with right lung consolidation suspicious for a mass. 07/16/2023 Patient is awake and alert. He is getting breathing treatments, she is mild respiratory distress while she is sitting in her chair. Her pro-calcitonin significantly elevated at 12.8. Currently she is covered with IV Zosyn and normal saline 75 mL/h. Plan for bronchoscopy tomorrow as patient is highly suspicious for lung cancer We'll give Xanax when necessary for anxiety 07/17/2023 patient has more respiratory difficulty today and she has some difficulty talking. While she was sitting in bed. She is mildly tachycardic. Heart rhythm rate 20-24, she is saturating 97% on 3 L oxygen via nasal cannula. WBC 12,000, sodium is normal at 140. Pulmonary team are planning for bronchoscopy today and possible biopsy for her right lung mass 07/18/2023 Patient seen and evaluated in follow-up maintained in the ICU was on mechanical ventilation and recently just extubated 30 minutes ago maintained on BiPAP. Patient is receiving IV hydration also maintained on Lasix and will discontinue the Lasix and monitor closely with follow-up labs and continue hydration for now. Patient's blood pressures are on the lower side as well and will hold blood pressure medications and resume as needed. Chest x-ray today shows complete opacification patient on the right with pulmonary cotton bag clipper following closely. PEEP of 6 and FiO2 is 40% on BiPAP and will continue. Patient is status post bronchoscopy and biopsies are pending at this time. Patient is afebrile and also continued on empirically Zosyn. Patient is responsive and able to follow commands and answer questions appropriately. Recommend follow-up labs in the a.m. 07/19/2023 Patient is seen and evaluated in follow-up today and continues to be in the ICU is a downgrade awaiting a MedSur bed currently.patient using BiPAP intermittently as needed at night and titrating down currently on 6 L via nasal cannula. CODE STATUS was addressed with pulmonary and patient is currently no code. Patient is afebrile with no worsening shortness of breath although does continue to be quite dyspneic on exam. Patient also having some coughing spells and reports some difficulty with swallowing medications and food and will have speech evaluate with a swallow assessment. Will have PT/OT therapy evaluate the patient as well as patient is significantly weak. 07/20/2023 Patient is seen and evaluated in follow-up this morning currently sitting up in the chair has been working with physical therapy maintained on 6-8 L high flow oxygen and being weaned as tolerated. Speech at bedside to evaluate the patient and patient has significant dysphasia and almost no swallowing capability recommending nothing by mouth. Patient okay for ice chips at this point. Patient reports her breathing is about the same and has not gotten significantly worse although continues to be extremely dyspneic with minimal exertion. Patient denies any pain and denies chest pain or palpitations. Patient is afebrile white count slightly improved and patient is maintained on empiric antibiotics. Pathology remains pending and oncology along with radiation onco logy was consulted. Overall poor prognosis. 07/21/2023 Patient evaluated today sitting up in the chair. Patient remains on high flow oxygen via nasal cannula at 7L. Saturations around 98% this could probably be weaned further. Patient has been evaluation by Dr. Katz rad/onc who is pending pathology reports for further recommendations. Patient needs further improvement in her respiratory status in order to undergo MRI and PET/CT for staging. Sodium is up to 150 today. Patient will be started on D5 water. Patient continues on IV zosyn. Review of systems: Constitutional: No reports of fatigue, fever, or chills Cardiovascular: No reports of chest pain or palpitations Respiratory: reports of shortness of breath with a weak cough GI: No reports of nausea, vomiting, or diarrhea, reports continued difficulty with swallowing : No reports of dysuria or retention Neurovascular: reports of generalized weakness All medications have been reviewed Physical exam: GENERAL: The patient is awake, alert and oriented x3, not in any acute distress. Well developed, well nourished. Intermittently on BiPAP at night and transitioning down to 6-8 L nasal cannula HEENT: Pupils are round and equally reacting to light. EOMI. No scleral icterus. No conjunctival pallor. Normocephalic, atraumatic. No pharyngeal erythema. No thyromegaly. CARDIOVASCULAR: S1 and S2 muffled PULMONARY: Diminished breath sounds on the right otherwise Chest is clear to auscultation, no wheezing , no crackles. Coarse rhonchi noted ABDOMEN: Soft, nontender, nondistended, normoactive bowel sounds. No palpable organomegaly. MUSCULOSKELETAL: No joint swelling or deformity. EXTREMITIES: No cyanosis, clubbing, or pedal edema. NEUROLOGICAL: Gross neurological examination did not reveal any focal deficits. Diffusely weak SKIN: No rashes. no petechiae. Assessment: Extensive Right lung mass status post bronchoscopy with pathology pending versus consolidation with large right pleural effusion and compressive atelectasis Acute hypoxic respiratory failure secondary to COPD as well as right lung mass status post bronchoscopy patient required intubation was extubated on 07/19/23. Mediastinal lymphadenopathy Possible post obstructive pneumonia is suspected Severe dysphasia Hypernatremia likely due to poor oral intake. Continued ongoing nicotine dependence History of severe COPD Hypertension Hyperlipidemia Chronic heart failure History of coronary artery disease status post stenting Obesity with BMI 32.0 GI prophylaxis DVT prophylaxis No code Plan: Patient has been using intermittent BiPAP and transitioning to 6-8 L via nasal cannula. Patient reports she does not wear oxygen outpatient and has extensive COPD underwent a bronchoscopy had some difficulties requiring reintubation. Has since been extubated. Pulmonary cotton bag clipper following closely maintained on empiric antibiotics at this time along with albuterol treatments. Concerns for postobstructive pneumonia Complete opacification noted on the right on recent chest x-ray Will follow-up on repeat labs and replace electrolytes per protocol. Patient was having a choking episode on water and reports to having some difficulty in swallowing pills and food and liquids. Speech evaluated the patient recommending nothing by mouth as patient has severe dysphasia and absent swallow. Patient okay for minimal ice chips. Patient is extremely high risk for aspiration and this was explained in detail to family along with patient and nursing staff at the bedside by speech therapy Pathology is pending status post bronchoscopy Pulmonary cotton bag clipper following and has consulted oncology along with radiation oncology for their input and recommendations Overall prognosis is poor and guarded at this time and carcinoma is highly suspected D5 water at 50 mls/hr started patient is currently NPO and sodium level increased to 150. Repeat labs in AM. CODE STATUS was addressed and patient wishes to be no code PT/OT therapy to follow The impression and plan of care has been dictated by Joanne Rosen, Nurse Practitioner as directed. Dr. Boaz MD I have performed a history and physical examination and medical decision making of this patient, discussed the same with the dictator, and agree with the dictators assessment and plan as written, documented as a scribe. Based on total visit time, I have performed more than 50% of this visit. Objective - Vital Signs Vital signs: Vital Signs Temp 98.0 F 07/21/23 07:10 Pulse 100 07/21/23 11:53 Resp 20 07/21/23 09:51 BP 127/76 07/21/23 07:10 Pulse Ox 98 07/21/23 07:10 FiO2 45 07/19/23 19:40 Intake & Output 07/20/23 07/21/23 07/21/23 18:59 06:59 18:59 Intake Total 200 Output Total 400 Balance -200 Intake: IV 200 Piperacillin-Tazobactam 3 200 .375 gm In Sodium Chloride 0.9% 100 ml @ 25 mls/hr IVPB Q8HR [facility] Rx# :[id number] Output: Urine 400 Other: Voiding Method Bedside Commode Bedside Commode External Catheter External Catheter # Voids 1 # Bowel Movements 1 - Labs CBC & Chem 7: 07/21/23 05:39 07/21/23 05:39 Labs: Abnormal Lab Results - Last 24 Hours (Table) 07/21/23 07/21/23 Range/Units 05:39 05:39 WBC 13.8 H (3.8-10.6) k/uL RBC 3.70 L (3.80-5.40) m/uL Hgb 11.1 L (11.4-16.0) gm/dL Plt Count 512 H (150-450) k/uL Neutrophils # 12.3 H (1.3-7.7) k/uL Lymphocytes # 0.8 L (1.0-4.8) k/uL Sodium 150 H (137-145) mmol/L Chloride 108 H (98-107) mmol/L Carbon Dioxide 35 H (22-30) mmol/L BUN 23 H (7-17) mg/dL Creatinine 0.42 L (0.52-1.04) mg/dL Microbiology - Last 24 Hours (Table) 07/15/23 17:00 Blood Culture - Final Blood 07/15/23 17:15 Blood Culture - Final Blood Assessment and Plan Time with Patient: Less than 30
--- NOTE | 2023-07-21 14:40 | P.PN ---
Subjective Progress Note Date: 07/21/23 The patient is improved sufficiently to be transferred to the floor, from the ICU. She continues on oxygen. She is still short of breath and states that she cannot lay flat yet. Objective - Vital Signs Vital signs: Vital Signs Temp 98.0 F 07/21/23 07:10 Pulse 100 07/21/23 11:53 Resp 20 07/21/23 09:51 BP 127/76 07/21/23 07:10 Pulse Ox 98 07/21/23 07:10 FiO2 45 07/19/23 19:40 Intake & Output 07/20/23 07/21/23 07/21/23 18:59 06:59 18:59 Intake Total 200 Output Total 400 Balance -200 Intake: IV 200 Piperacillin-Tazobactam 3 200 .375 gm In Sodium Chloride 0.9% 100 ml @ 25 mls/hr IVPB Q8HR [facility] Rx# :[id number] Output: Urine 400 Other: Voiding Method Bedside Commode Bedside Commode External Catheter External Catheter # Voids 1 # Bowel Movements 1 - Constitutional General appearance: Present: no acute distress - EENT Eyes: Present: EOMI ENT: Present: hearing grossly normal, normal oropharynx - Respiratory Respiratory: right: diminished - Cardiovascular Rhythm: regular Heart sounds: normal: S1, S2 - Gastrointestinal General gastrointestinal: Present: normal bowel sounds, soft - Integumentary Integumentary: Present: normal - Neurologic Neurologic: Present: CNII-XII intact - Musculoskeletal Musculoskeletal: Present: generalized weakness, strength equal bilaterally - Psychiatric Psychiatric: Present: A&O x's 3, appropriate affect - Labs CBC & Chem 7: 07/21/23 05:39 07/21/23 05:39 Labs: Abnormal Lab Results - Last 24 Hours (Table) 07/21/23 07/21/23 Range/Units 05:39 05:39 WBC 13.8 H (3.8-10.6) k/uL RBC 3.70 L (3.80-5.40) m/uL Hgb 11.1 L (11.4-16.0) gm/dL Plt Count 512 H (150-450) k/uL Neutrophils # 12.3 H (1.3-7.7) k/uL Lymphocytes # 0.8 L (1.0-4.8) k/uL Sodium 150 H (137-145) mmol/L Chloride 108 H (98-107) mmol/L Carbon Dioxide 35 H (22-30) mmol/L BUN 23 H (7-17) mg/dL Creatinine 0.42 L (0.52-1.04) mg/dL Microbiology - Last 24 Hours (Table) 07/15/23 17:00 Blood Culture - Final Blood 07/15/23 17:15 Blood Culture - Final Blood Assessment and Plan (1) Acute respiratory failure Narrative/Plan: The patient is improved. She was able to be extubated yesterday, and has now been transferred out of the ICU. She continues on oxygen, as he is still experiencing more shortness of breath, compared to her usual baseline. Defer to the admitting service and pulmonary medicine for ongoing treatment Current Visit: Yes Status: Acute Code(s): J96.00 - ACUTE RESPIRATORY FAILURE, UNSP W HYPOXIA OR HYPERCAPNIA SNOMED Code(s): 64207317 (2) Lung mass Narrative/Plan: Biopsy results are pending. Additional staging studies were planned, including MRI of the brain. However these will be placed on hold currently, as the patient is unable to lay flat. This will be scheduled, once her respiratory status, hopefully, improves further to enable her to do so. - Additional quality is on consult, and will consider palliative radiation if appropriate Current Visit: Yes Status: Acute Code(s): R91.8 - OTHER NONSPECIFIC ABNORMAL FINDING OF LUNG FIELD SNOMED Code(s): 592971031
[2023-07-22] MEDS: PIPERACILLIN-TAZOBACTAM 3.375 GM in SODIUM CHLORIDE 0.9% 100 ML IVPB SCH ×3 (00:32→17:03)
[2023-07-22 04:45] LABS: African American GFR (CKD) >90 (>60 ml/min/1.73 sqM); Anion Gap 6 mmol/L; Blood Urea Nitrogen 23 mg/dL (7-17); Carbon Dioxide 35 mmol/L (22-30); Chloride 108 mmol/L (98-107); Glucose 103 mg/dL (74-99); Magnesium 2.7 mg/dL (1.6-2.3); Non-African American GFR(CKD) >90 (>60 ml/min/1.73 sqM); Potassium 3.9 mmol/L (3.5-5.1); Sodium 149 mmol/L (137-145)
[2023-07-22 04:46] LABS: Basophils % (A) 0 %; Eosinophils % (A) 0 %; HCT 35.4 % (34.0-46.0); HGB 11.2 gm/dL (11.4-16.0); Hypochromasia Slight; Lymphocytes # (A) 0.9 k/uL (1.0-4.8); Lymphocytes % (A) 7 %; MCH 30.4 pg (25.0-35.0); MCHC 31.8 g/dL (31.0-37.0); MCV 95.6 fL (80.0-100.0); Mean Platelet Volume 6.8; Monocytes # (A) 0.6 k/uL (0-1.0); Monocytes % (A) 5 %; Neutrophils # (A) 10.8 k/uL (1.3-7.7); Neutrophils % (A) 87 %; Platelet Count 539 k/uL (150-450); RDW 13.3 % (11.5-15.5); WBC 12.4 k/uL (3.8-10.6)
[2023-07-22] MEDS: HEPARIN SODIUM,PORCINE 5,000 UNIT/ML 1 ML VIAL SQ SCH ×2 (08:46→20:56)
[2023-07-22] MEDS: ALBUTEROL NEBULIZED 2.5 MG/3 ML INHALATION SCH ×5 (08:57→20:05)
[2023-07-22] MEDS: SYMBICORT 160-4.5 MCG INHALER INHALATION SCH ×2 (08:58→20:05)
--- NOTE | 2023-07-22 12:25 | P.PN ---
Subjective Progress Note Date: 07/22/23 This is a 63-year-old female patient, a chronic smoker started age of 18 and she quit smoking approximately 2 months ago. She presented emergency department was a 3 days history of shortness of breath. CAT scan of the chest was done in the emergency department and the patient was found to have extensive mediastinal lymphadenopathy and this is present in the right paratracheal area, right hilum, subcarinal area and the patient has mass effect with significant narrowing of the distal right main stem bronchus and bronchus intermedius and airways completely occluded past the distal right main stem. As such, the patient has extensive atelectatic changes in the right middle lobe and the right lower lobe with a small right-sided pleural effusion. Presentation is highly suspicious for small cell lung cancer. No evidence of any pulmonary embolism. The patient has of the discomfort of 14.2, sodium is at 131 initially at 128 probably related to SIADH. Troponins are negative. Pro-calcitonin level is at 12.8. She is afebrile. Hemodynamically stable. Pulse ox is 95% liters of oxygen by nasal cannula. No hemoptysis. 20 pounds weight loss. The patient is seen today 07/16/2023 in follow-up on the regular medical floor. She is awake and alert in no acute distress. She is maintaining good O2 saturations in the mid 90s on 2 L/m per nasal cannula. She's afebrile. Hemodynamically stable. No new labs today. She is continued on Zosyn. Heparin for DVT prophylaxis. Normal saline at 75 ML's per hour. Based on the above mentioned computed tomography scan findings we will plan for bronchoscopy and probable biopsies tomorrow. The patient is seen today 07/17/2023 in follow-up on the regular medical floor. She is currently sitting up in a chair at the bedside. Awake and alert in no acute distress. She is maintaining O2 saturations in the 90s on 3 L/m per nasal cannula. She's been afebrile. Hemodynamically stable. Blood cultures reveal no growth. White count 12.8. Hemoglobin 11.3. Platelets 517. Sodium 140. Potassium 4.1. Bicarb 28. BUN 17. Creatinine 0.6. Glucose 104. Remains on antibiotics in form of Zosyn. Plan is for bronchoscopy with biopsies today 07/17/23 Patient underwent bronchoscopy and there was evidence of complete obstruction of the right mainstem bronchus and right upper lobe bronchus, there was evidence of endobronchial tumor, cauliflower-shaped tumor involving the enrike, right upper lobe bronchus, right mainstem bronchus, and there was no visualization of the right upper lobe or right middle lobe or right lower lobe. Procedure was done, patient underwent multiple biopsies of the endobronchial tumor, brushings were done, au needle aspiration of 4R lymph node done. The procedure was well- tolerated, however the patient was extubated in the recovery room, however she had to be reintubated because she was acting confused and her O2 saturations were running low. Patient was placed back on mechanical ventilation with assist control rate of 24, tidal volume to 50, FiO2 on the percent, PEEP of 5. Patient will be transferred to the ICU, she would be kept on mechanical ventilation tonight, and will likely address weaning and extubation to BiPAP in the next 24 hours. Patient does have significant underlying COPD and I believe extubating the patient to BiPAP would be reasonable. In the meantime we will support the patient on mechanical ventilation, and we will address weaning and extubation in the next 24 hours. Patient was reevaluated today on 07/18/23, patient underwent bronchoscopy and multiple endobronchial biopsies of a large tumor completely occluding the right mainstem bronchus, right upper lobe, and she had to transfer enrike needle aspiration of lymph nodes. Patient was extubated after the procedure however she did not tolerate the extubation and she had to be reintubated by [employer]. Patient was admitted to the ICU overnight, and I'm seeing her today, patient remains intubated and mechanically ventilated. She is on assist control rate of 26 tidal volume to 50 FiO2 45% and PEEP of 5 ABG showed a pO2 of 79 pCO2 50 pH of 7.40. Chest x-ray continues to show complete opacification of the right lung, left lung seems to be relatively clear. Patient is on propofol at 35 mcg/kg/m she is also on IV fluid at 100 mL per hour. After evaluating the patient, I recommended stopping propofol, patient was given a trial of pressure support of 12 and CPAP, and she was tolerating the weaning well. And I extub ated the patient to BiPAP, 12//40%, and I will follow along next to the patient evaluating her pulmonary status during this transition from mechanical ventilation to BiPAP. Patient seemed to do better on BiPAP, hence we'll keep her on BiPAP today, and we will continue bronchodilators, we will continue her IV fluids, and awaiting final pathology from her recent endobronchial biopsies. Overall prognosis considering the findings on the bronchoscopy yesterday, is extremely poor She was seen and examined today on 07/19/23, patient remains in the ICU, she was extubated yesterday successfully, presently on nasal cannula at 8 L/m, however she was on BiPAP at night 12/6/45%. O2 saturations in the mid 90s I cut her down to 5 L nasal cannula, patient did not sleep well last night. IV fluid is c ut down to KVO, patient is eating and drinking pathology from the bronchoscopy is still pending however in the meantime I'm recommending consultation with oncology and with radiation oncology. Chest x-ray continues to show complete opacification of the right hemithorax. No infiltrate in the left lung. WBC count is 15.7 hemoglobin is 11.1, basic metabolic profile is normal, renal profile is normal Patient was seen and examined today on 07/20/23, patient remains in the ICU, she is supposedly overflow, but overnight she developed worsening shortness of breath and she had to be placed on BiPAP, she remains on BiPAP this morning. She is on 12/6/45%, remains on Zosyn, remains on bronchodilators, and today I went ahead and added Decadron. Patient was seen by oncology, and again we are waiting for the tissue diagnosis/biopsy. Overall clinical picture does not look very promising, patient is marginal at best. And I did discuss the CODE STATUS with the patient yesterday, and she definitely wants to be DO NOT RESUSCITATE CODE STATUS. I will try to reach her son hCristophe sometime later today and discussed her condition with him also. WBC count is 14.1 hemoglobin is 10.8, basic metabolic profile is normal sodium is up to 145. And renal profile is normal The patient is seen today 07/21/2023 in follow-up on the regular medical floor. Awake and alert in no acute distress. She is currently sitting up in a chair at the bedside. She is having difficulty breathing when lying in bed. She is maintaining O2 saturations in the 90s on 7 L high flow nasal cannula. She currently denies any worsening shortness of breath, cough or congestion. She denies any pain. Her family is at the bedside. Blood cultures revealed no growth. Bronchial wash cultures reveal no growth. Pathology is pending from biopsies. White count 13.8. Hemoglobin 11.1. Platelets 512. Sodium 130. Potassium 4.0. Bicarb 35. BUN 23. Creatinine 0.42. She remains on Symbicort, albuterol, Decadron. Heparin for DVT prophylaxis. Normal saline at [facility]. Antibiotics in the form of Zosyn. The patient is seen today 07/22/2023 in follow-up on the regular medical floor. She is sitting up in a chair. Awake and alert in no acute distress. Denies any worsening shortness of breath, cough or congestion. She is still on 7 high flow liters high flow nasal cannula to maintain O2 saturations in the 90s. Blood cultures revealed no growth. Bronchial wash cultures revealed no growth. Pathology still pending. White count 12.4. Hemoglobin 11.2. Platelets 539. Sodium 149. Potassium 3.9. Bicarb 35. BUN 23. Creatinine 0.44. Glucose 103. She is continued on Symbicort, albuterol, Decadron. Antibiotics in the form of Zosyn. Objective - Vital Signs Vital signs: Vital Signs Temp 98.0 F 07/22/23 07:40 Pulse 96 07/22/23 12:11 Resp 19 07/22/23 08:00 BP 142/82 07/22/23 07:40 Pulse Ox 99 07/22/23 08:58 FiO2 45 07/19/23 19:40 Intake & Output 07/21/23 07/22/23 07/22/23 19:59 06:59 18:59 Output Total Balance Output: Urine Other: Voiding Method Bedside Commode External Catheter # Voids - Exam GENERAL EXAM: Alert, 63-year-old female, on 7 L high flow nasal cannula, in no apparent distress. HEAD: Normocephalic. EYES: Normal reaction of pupils, equal size. NOSE: Clear with pink turbinates. THROAT: No erythema or exudates. NECK: No masses, no JVD. CHEST: No chest wall deformity. LUNGS: Equal air entry with diminished breath sounds throughout the right lung. Left lung is clear. CVS: S1 and S2 normal with no audible murmur, regular rhythm. ABDOMEN: No hepatosplenomegaly, normal bowel sounds, no guarding or rigidity. SPINE: No scoliosis or deformity SKIN: No rashes CENTRAL NERVOUS SYSTEM: No focal deficits, tone is normal in all 4 extremities. EXTREMITIES: There is no peripheral edema. No clubbing, no cyanosis. Peripheral pulses are intact. - Labs CBC & Chem 7: 07/22/23 03:49 07/22/23 03:54 Labs: Abnormal Lab Results - Last 24 Hours (Table) 07/22/23 07/22/23 Range/Units 03:49 03:54 WBC 12.4 H (3.8-10.6) k/uL RBC 3.70 L (3.80-5.40) m/uL Hgb 11.2 L (11.4-16.0) gm/dL Plt Count 539 H (150-450) k/uL Neutrophils # 10.8 H (1.3-7.7) k/uL Lymphocytes # 0.9 L (1.0-4.8) k/uL Sodium 149 H (137-145) mmol/L Chloride 108 H (98-107) mmol/L Carbon Dioxide 35 H (22-30) mmol/L BUN 23 H (7-17) mg/dL Creatinine 0.44 L (0.52-1.04) mg/dL Glucose 103 H (74-99) mg/dL Magnesium 2.7 H (1.6-2.3) mg/dL Assessment and Plan Assessment: Mediastinal mass involving the right paratracheal area extending into the subcarinal area causing mass effect and complete occlusion of the right distal main stem bronchus and bronchus intermedius and causing atelectasis of the right middle lobe and the right lower lobe with a small right-sided pleural effusion. The mass most likely originated from the hilar and caused significant local progression and mass effect involving the right main stem distally and bronchus intermedius. Acute hypoxic and hypercapnic respiratory failure, post bronchoscopy, expected, requiring reintubation after the bronchoscopy and keeping the patient in the ICU overnight. This is related to her underlying COPD, also related to her underlying lung mass and significant opacification of the right lung secondary to lung mass, and also related to her hilar adenopathy. This is all consistent with COPD and underlying bronchogenic carcinoma most likely squamous cell lung cancer Hypernatremia, sodium 149 following previous hyponatremia corrected Postobstructive pneumonia involving the right lung area, currently on Zosyn Chronic and ongoing tobacco dependence Coronary artery disease, prior stenting of the LAD Hypertension Hyperlipidemia Shortness of breath secondary to above Acute hypoxic respiratory failure secondary to above Plan: The patient was seen and evaluated Medications and labs reviewed Currently on 7 L high flow nasal cannula Continue Zosyn and bronchodilators Prognosis is quite guarded Pathology pending Medical and radiation oncology following We will continue to follow I have personally seen and examined the patient, performed the documentation and the assessment and plan as written. Number of minutes spent on the visit: 10.
--- NOTE | 2023-07-22 16:21 | P.PN ---
Subjective Progress Note Date: 07/22/23 This is a pleasant 63 years old female with past medical history of Coronary Artery Disease s/p stenting, Heart Failure, GERD/Reflux, Hyperlipidemia, Hypertension, her PCP is Dr. Navarrete and cell tuber machine Dr. Neff for her history of coronary artery disease status post stent Patient presents because of worsening dyspnea over 3 days especially with exertion she has to stop to catch up with her breath. No significant chest pain and no significant coughing No other urinary GI symptoms. No dizziness weakness or numbness. She quit smoking about 2 months ago, lately she used to smoke 5 cigarettes per day. No alcohol or illicit drugs. She is hemodynamically stable, afebrile saturating well on 2 L oxygen via nasal cannula Labs showed mild leukocytosis of 13 and 14,000. Sodium markedly low at 1.8 and 131. ProBNP is low at 178. Troponin were unremarkable. Labs including CBC, BMP liver enzymes are unremarkable EKG showing normal sinus rhythm at 85 CT of the lung showing normal pulmonary embolism and rule out right pleural effusion with right lung consolidation suspicious for a mass. 07/16/2023 Patient is awake and alert. He is getting breathing treatments, she is mild respiratory distress while she is sitting in her chair. Her pro-calcitonin significantly elevated at 12.8. Currently she is covered with IV Zosyn and normal saline 75 mL/h. Plan for bronchoscopy tomorrow as patient is highly suspicious for lung cancer We'll give Xanax when necessary for anxiety 07/17/2023 patient has more respiratory difficulty today and she has some difficulty talking. While she was sitting in bed. She is mildly tachycardic. Heart rhythm rate 20-24, she is saturating 97% on 3 L oxygen via nasal cannula. WBC 12,000, sodium is normal at 140. Pulmonary team are planning for bronchoscopy today and possible biopsy for her right lung mass 07/18/2023 Patient seen and evaluated in follow-up maintained in the ICU was on mechanical ventilation and recently just extubated 30 minutes ago maintained on BiPAP. Patient is receiving IV hydration also maintained on Lasix and will discontinue the Lasix and monitor closely with follow-up labs and continue hydration for now. Patient's blood pressures are on the lower side as well and will hold blood pressure medications and resume as needed. Chest x-ray today shows complete opacification patient on the right with pulmonary emr trainer following closely. PEEP of 6 and FiO2 is 40% on BiPAP and will continue. Patient is status post bronchoscopy and biopsies are pending at this time. Patient is afebrile and also continued on empirically Zosyn. Patient is responsive and able to follow commands and answer questions appropriately. Recommend follow-up labs in the a.m. 07/19/2023 Patient is seen and evaluated in follow-up today and continues to be in the ICU is a downgrade awaiting a Medr bed currently.patient using BiPAP intermittently as needed at night and titrating down currently on 6 L via nasal cannula. CODE STATUS was addressed with pulmonary and patient is currently no code. Patient is afebrile with no worsening shortness of breath although does continue to be quite dyspneic on exam. Patient also having some coughing spells and reports some difficulty with swallowing medications and food and will have speech evaluate with a swallow assessment. Will have PT/OT therapy evaluate the patient as well as patient is significantly weak. 07/20/2023 Patient is seen and evaluated in follow-up this morning currently sitting up in the chair has been working with physical therapy maintained on 6-8 L high flow oxygen and being weaned as tolerated. Speech at bedside to evaluate the patient and patient has significant dysphasia and almost no swallowing capability recommending nothing by mouth. Patient okay for ice chips at this point. Patient reports her breathing is about the same and has not gotten significantly worse although continues to be extremely dyspneic with minimal exertion. Patient denies any pain and denies chest pain or palpitations. Patient is afebrile white count slightly improved and patient is maintained on empiric antibiotics. Pathology remains pending and oncology along with radiation onco logy was consulted. Overall poor prognosis. 07/21/2023 Patient evaluated today sitting up in the chair. Patient remains on high flow oxygen via nasal cannula at 7L. Saturations around 98% this could probably be weaned further. Patient has been evaluation by Dr. Katz rad/onc who is pending pathology reports for further recommendations. Patient needs further improvement in her respiratory status in order to undergo MRI and PET/CT for staging. Sodium is up to 150 today. Patient will be started on D5 water. Patient continues on IV zosyn. 07/22/2023 Patient is evaluated today sitting up in chair. No acute complains. Having intermittent cough. Continues on nasal cannula at 7L. Pending pathology. Pulmonary following. Patient also remains on IV zosyn. Sodium 149 today. D5 has been discontinued. Review of systems: Constitutional: No reports of fatigue, fever, or chills Cardiovascular: No reports of chest pain or palpitations Respiratory: reports of shortness of breath with a weak cough GI: No reports of nausea, vomiting, or diarrhea, reports continued difficulty with swallowing : No reports of dysuria or retention Neurovascular: reports of generalized weakness All medications have been reviewed Physical exam: GENERAL: The patient is awake, alert and oriented x3, not in any acute distress. Well developed, well nourished. Intermittently on BiPAP at night and transitioning down to 6-8 L nasal cannula HEENT: Pupils are round and equally reacting to light. EOMI. No scleral icterus. No conjunctival pallor. Normocephalic, atraumatic. No pharyngeal erythema. No thyromegaly. CARDIOVASCULAR: S1 and S2 muffled PULMONARY: Diminished breath sounds on the right otherwise Chest is clear to auscultation, no wheezing , no crackles. Coarse rhonchi noted ABDOMEN: Soft, nontender, nondistended, normoactive bowel sounds. No palpable organomegaly. MUSCULOSKELETAL: No joint swelling or deformity. EXTREMITIES: No cyanosis, clubbing, or pedal edema. NEUROLOGICAL: Gross neurological examination did not reveal any focal deficits. Diffusely weak SKIN: No rashes. no petechiae. Assessment: Extensive Right lung mass status post bronchoscopy with pathology pending versus consolidation with large right pleural effusion and compressive atelectasis Acute hypoxic respiratory failure secondary to COPD as well as right lung mass status post bronchoscopy patient required intubation was extubated on 07/19/23. Mediastinal lymphadenopathy Possible post obstructive pneumonia is suspected Severe dysphasia Hypernatremia likely due to poor oral intake. Continued ongoing nicotine dependence History of severe COPD Hypertension Hyperlipidemia Chronic heart failure History of coronary artery disease status post stenting Obesity with BMI 32.0 GI prophylaxis DVT prophylaxis No code Plan: Patient has been using intermittent BiPAP and transitioning to 6-8 L via nasal cannula. Patient reports she does not wear oxygen outpatient and has extensive COPD underwent a bronchoscopy had some difficulties requiring reintubation. Has since been extubated. Pulmonary emr trainer following closely maintained on empiric antibiotics at this time along with albuterol treatments. Concerns for postobstructive pneumonia Complete opacification noted on the right on recent chest x-ray Will follow-up on repeat labs and replace electrolytes per protocol. Patient was having a choking episode on water and reports to having some difficulty in swallowing pills and food and liquids. Speech evaluated the patient recommending nothing by mouth as patient has severe dysphasia and absent swallow. Patient okay for minimal ice chips. Patient is extremely high risk for aspiration and this was explained in detail to family along with patient and nursing staff at the bedside by speech therapy Pathology is pending status post bronchoscopy Pulmonary emr trainer following and has consulted oncology along with radiation oncology for their input and recommendations Overall prognosis is poor and guarded at this time and carcinoma is highly suspected D5 water at 50 mls/hr started patient is currently NPO and sodium level increased to 150. Repeat labs in AM. CODE STATUS was addressed and patient wishes to be no code PT/OT therapy to follow The impression and plan of care has been dictated by Joanne Rosen, Nurse Practitioner as directed. Dr. Boaz MD I have performed a history and physical examination and medical decision making of this patient, discussed the same with the dictator, and agree with the dictators assessment and plan as written, documented as a scribe. Based on total visit time, I have performed more than 50% of this visit. Objective - Vital Signs Vital signs: Vital Signs Temp 98.1 F 07/22/23 14:00 Pulse 102 H 07/22/23 14:00 Resp 19 07/22/23 14:00 BP 126/78 07/22/23 14:00 Pulse Ox 98 07/22/23 14:00 FiO2 45 07/19/23 19:40 Intake & Output 07/21/23 07/22/23 07/22/23 19:59 06:59 18:59 Output Total Balance Output: Urine Other: Voiding Method Bedside Commode External Catheter # Voids - Labs CBC & Chem 7: 07/22/23 03:49 07/22/23 03:54 Labs: Abnormal Lab Results - Last 24 Hours (Table) 07/22/23 07/22/23 Range/Units 03:49 03:54 WBC 12.4 H (3.8-10.6) k/uL RBC 3.70 L (3.80-5.40) m/uL Hgb 11.2 L (11.4-16.0) gm/dL Plt Count 539 H (150-450) k/uL Neutrophils # 10.8 H (1.3-7.7) k/uL Lymphocytes # 0.9 L (1.0-4.8) k/uL Sodium 149 H (137-145) mmol/L Chloride 108 H (98-107) mmol/L Carbon Dioxide 35 H (22-30) mmol/L BUN 23 H (7-17) mg/dL Creatinine 0.44 L (0.52-1.04) mg/dL Glucose 103 H (74-99) mg/dL Magnesium 2.7 H (1.6-2.3) mg/dL Assessment and Plan Time with Patient: Less than 30
[2023-07-22] MEDS: ALPRAZolam 0.25 MG TAB PO SCH (20:56)
[2023-07-23] MEDS: SYMBICORT 160-4.5 MCG INHALER INHALATION SCH ×2 (07:55→20:58)
[2023-07-23] MEDS: ALBUTEROL NEBULIZED 2.5 MG/3 ML INHALATION SCH ×4 (07:55→20:58)
[2023-07-23 08:40] LABS: Blood Urea Nitrogen 19.8 mg/dL (9.0-27.0); Calcium 9.4 mg/dL (8.7-10.3); Carbon Dioxide 35.8 mmol/L (21.6-31.8); Chloride 107 mmol/L (96-109); Glucose 102 mg/dL (70-110); Potassium 3.9 mmol/L (3.5-5.5); Sodium 151 mmol/L (135-145)
[2023-07-23] MEDS: predniSONE 10 MG TAB PO SCH (09:31)
[2023-07-23] MEDS: HEPARIN SODIUM,PORCINE 5,000 UNIT/ML 1 ML VIAL SQ SCH ×2 (09:31→19:53)
--- NOTE | 2023-07-23 12:01 | P.PN ---
Subjective Progress Note Date: 07/23/23 This is a 63-year-old female patient, a chronic smoker started age of 18 and she quit smoking approximately 2 months ago. She presented emergency department was a 3 days history of shortness of breath. CAT scan of the chest was done in the emergency department and the patient was found to have extensive mediastinal lymphadenopathy and this is present in the right paratracheal area, right hilum, subcarinal area and the patient has mass effect with significant narrowing of the distal right main stem bronchus and bronchus intermedius and airways completely occluded past the distal right main stem. As such, the patient has extensive atelectatic changes in the right middle lobe and the right lower lobe with a small right-sided pleural effusion. Presentation is highly suspicious for small cell lung cancer. No evidence of any pulmonary embolism. The patient has of the discomfort of 14.2, sodium is at 131 initially at 128 probably related to SIADH. Troponins are negative. Pro-calcitonin level is at 12.8. She is afebrile. Hemodynamically stable. Pulse ox is 95% liters of oxygen by nasal cannula. No hemoptysis. 20 pounds weight loss. The patient is seen today 07/16/2023 in follow-up on the regular medical floor. She is awake and alert in no acute distress. She is maintaining good O2 saturations in the mid 90s on 2 L/m per nasal cannula. She's afebrile. Hemodynamically stable. No new labs today. She is continued on Zosyn. Heparin for DVT prophylaxis. Normal saline at 75 ML's per hour. Based on the above mentioned computed tomography scan findings we will plan for bronchoscopy and probable biopsies tomorrow. The patient is seen today 07/17/2023 in follow-up on the regular medical floor. She is currently sitting up in a chair at the bedside. Awake and alert in no acute distress. She is maintaining O2 saturations in the 90s on 3 L/m per nasal cannula. She's been afebrile. Hemodynamically stable. Blood cultures reveal no growth. White count 12.8. Hemoglobin 11.3. Platelets 517. Sodium 140. Potassium 4.1. Bicarb 28. BUN 17. Creatinine 0.6. Glucose 104. Remains on antibiotics in form of Zosyn. Plan is for bronchoscopy with biopsies today 07/17/23 Patient underwent bronchoscopy and there was evidence of complete obstruction of the right mainstem bronchus and right upper lobe bronchus, there was evidence of endobronchial tumor, cauliflower-shaped tumor involving the enrike, right upper lobe bronchus, right mainstem bronchus, and there was no visualization of the right upper lobe or right middle lobe or right lower lobe. Procedure was done, patient underwent multiple biopsies of the endobronchial tumor, brushings were done, au needle aspiration of 4R lymph node done. The procedure was well- tolerated, however the patient was extubated in the recovery room, however she had to be reintubated because she was acting confused and her O2 saturations were running low. Patient was placed back on mechanical ventilation with assist control rate of 24, tidal volume to 50, FiO2 on the percent, PEEP of 5. Patient will be transferred to the ICU, she would be kept on mechanical ventilation tonight, and will likely address weaning and extubation to BiPAP in the next 24 hours. Patient does have significant underlying COPD and I believe extubating the patient to BiPAP would be reasonable. In the meantime we will support the patient on mechanical ventilation, and we will address weaning and extubation in the next 24 hours. Patient was reevaluated today on 07/18/23, patient underwent bronchoscopy and multiple endobronchial biopsies of a large tumor completely occluding the right mainstem bronchus, right upper lobe, and she had to transfer enrike needle aspiration of lymph nodes. Patient was extubated after the procedure however she did not tolerate the extubation and she had to be reintubated by FLOTATION TENDER. Patient was admitted to the ICU overnight, and I'm seeing her today, patient remains intubated and mechanically ventilated. She is on assist control rate of 26 tidal volume to 50 FiO2 45% and PEEP of 5 ABG showed a pO2 of 79 pCO2 50 pH of 7.40. Chest x-ray continues to show complete opacification of the right lung, left lung seems to be relatively clear. Patient is on propofol at 35 mcg/kg/m she is also on IV fluid at 100 mL per hour. After evaluating the patient, I recommended stopping propofol, patient was given a trial of pressure support of 12 and CPAP, and she was tolerating the weaning well. And I extub ated the patient to BiPAP, 12//40%, and I will follow along next to the patient evaluating her pulmonary status during this transition from mechanical ventilation to BiPAP. Patient seemed to do better on BiPAP, hence we'll keep her on BiPAP today, and we will continue bronchodilators, we will continue her IV fluids, and awaiting final pathology from her recent endobronchial biopsies. Overall prognosis considering the findings on the bronchoscopy yesterday, is extremely poor She was seen and examined today on 07/19/23, patient remains in the ICU, she was extubated yesterday successfully, presently on nasal cannula at 8 L/m, however she was on BiPAP at night 12/6/45%. O2 saturations in the mid 90s I cut her down to 5 L nasal cannula, patient did not sleep well last night. IV fluid is c ut down to KVO, patient is eating and drinking pathology from the bronchoscopy is still pending however in the meantime I'm recommending consultation with oncology and with radiation oncology. Chest x-ray continues to show complete opacification of the right hemithorax. No infiltrate in the left lung. WBC count is 15.7 hemoglobin is 11.1, basic metabolic profile is normal, renal profile is normal Patient was seen and examined today on 07/20/23, patient remains in the ICU, she is supposedly overflow, but overnight she developed worsening shortness of breath and she had to be placed on BiPAP, she remains on BiPAP this morning. She is on 12/6/45%, remains on Zosyn, remains on bronchodilators, and today I went ahead and added Decadron. Patient was seen by oncology, and again we are waiting for the tissue diagnosis/biopsy. Overall clinical picture does not look very promising, patient is marginal at best. And I did discuss the CODE STATUS with the patient yesterday, and she definitely wants to be DO NOT RESUSCITATE CODE STATUS. I will try to reach her son Christophe sometime later today and discussed her condition with him also. WBC count is 14.1 hemoglobin is 10.8, basic metabolic profile is normal sodium is up to 145. And renal profile is normal The patient is seen today 07/21/2023 in follow-up on the regular medical floor. Awake and alert in no acute distress. She is currently sitting up in a chair at the bedside. She is having difficulty breathing when lying in bed. She is maintaining O2 saturations in the 90s on 7 L high flow nasal cannula. She currently denies any worsening shortness of breath, cough or congestion. She denies any pain. Her family is at the bedside. Blood cultures revealed no growth. Bronchial wash cultures reveal no growth. Pathology is pending from biopsies. White count 13.8. Hemoglobin 11.1. Platelets 512. Sodium 130. Potassium 4.0. Bicarb 35. BUN 23. Creatinine 0.42. She remains on Symbicort, albuterol, Decadron. Heparin for DVT prophylaxis. Normal saline at [facility] Antibiotics in the form of Zosyn. The patient is seen today 07/22/2023 in follow-up on the regular medical floor. She is sitting up in a chair. Awake and alert in no acute distress. Denies any worsening shortness of breath, cough or congestion. She is still on 7 high flow liters high flow nasal cannula to maintain O2 saturations in the 90s. Blood cultures revealed no growth. Bronchial wash cultures revealed no growth. Pathology still pending. White count 12.4. Hemoglobin 11.2. Platelets 539. Sodium 149. Potassium 3.9. Bicarb 35. BUN 23. Creatinine 0.44. Glucose 103. She is continued on Symbicort, albuterol, Decadron. Antibiotics in the form of Zosyn. The patient is seen today 07/23/2023 in follow-up on the regular medical floor. She is awake and alert in no acute distress. She is maintaining O2 saturations in the 90s on 5 L high flow nasal cannula. She denies any worsening shortness of breath, cough or congestion. Her oxygenation continues to improve. She may require home oxygen. Blood cultures revealed no growth. Bronchial wash cultures revealed no growth. Sodium 151. Potassium 3.9. Bicarb 36. BUN 20. Creatinine 0.4. She completed a course of antibiotics. She is on heparin for DVT prophylaxis. Continue on Symbicort and albuterol. Continued on a prednisone taper. Objective - Vital Signs Vital signs: Vital Signs Temp 97.5 F L 07/23/23 07:43 Pulse 100 07/23/23 08:12 Resp 17 07/23/23 07:43 BP 136/76 07/23/23 07:43 Pulse Ox 95 07/23/23 10:30 FiO2 45 07/19/23 19:40 Intake & Output 07/22/23 07/23/23 07/23/23 18:59 06:59 18:59 Intake Total 100 Output Total 200 950 Balance -200 -950 100 Intake: Oral 100 Output: Urine 200 950 Other: Voiding Method Bedside Commode Bedside Commode External Catheter External Catheter - Exam GENERAL EXAM: Alert, pleasant 63-year-old female, up in a chair, on 5 L high flow nasal cannula, in no apparent distress. HEAD: Normocephalic. EYES: Normal reaction of pupils, equal size. NOSE: Clear with pink turbinates. THROAT: No erythema or exudates. NECK: No masses, no JVD. CHEST: No chest wall deformity. LUNGS: Equal air entry with diminished breath sounds throughout the right lung. Left lung is clear. CVS: S1 and S2 normal with no audible murmur, regular rhythm. ABDOMEN: No hepatosplenomegaly, normal bowel sounds, no guarding or rigidity. SPINE: No scoliosis or deformity SKIN: No rashes CENTRAL NERVOUS SYSTEM: No focal deficits, tone is normal in all 4 extremities. EXTREMITIES: There is no peripheral edema. No clubbing, no cyanosis. Peripheral pulses are intact. - Labs CBC & Chem 7: 07/22/23 03:49 07/23/23 05:53 Labs: Abnormal Lab Results - Last 24 Hours (Table) 07/23/23 Range/Units 05:53 Sodium 151 H (135-145) mmol/L Carbon Dioxide 35.8 H (21.6-31.8) mmol/L Creatinine 0.4 L (0.6-1.5) mg/dL BUN/Creatinine Ratio 49.50 H (12.00-20.00) Ratio Assessment and Plan Assessment: Acute hypoxic and hypercapnic respiratory failure, post bronchoscopy, expected, requiring reintubation after the bronchoscopy and keeping the patient in the ICU overnight. This is related to her underlying COPD, also related to her underlying lung mass and significant opacification of the right lung secondary to lung mass, and also related to her hilar adenopathy. This is all consistent with COPD and underlying bronchogenic carcinoma most likely squamous cell lung cancer. Bronchoscopy with biopsies performed on 07/17/2023. Pathology is still pending. Mediastinal mass involving the right paratracheal area extending into the subcarinal area causing mass effect and complete occlusion of the right distal main stem bronchus and bronchus intermedius and causing atelectasis of the right middle lobe and the right lower lobe with a small right-sided pleural effusion. The mass most likely originated from the hilar and caused significant local progression and mass effect involving the right main stem distally and bronchus intermedius. Hypernatremia, sodium 149 following previous hyponatremia corrected Postobstructive pneumonia involving the right lung area, currently on Zosyn Chronic and ongoing tobacco dependence Coronary artery disease, prior stenting of the LAD Hypertension Hyperlipidemia Shortness of breath secondary to above Acute hypoxic respiratory failure secondary to above Plan: The patient was seen and evaluated Medications and labs reviewed Completed antibiotics Discontinue Decadron Initiate prednisone taper starting at 30 daily Continue Symbicort and albuterol Titrate the FiO2 as tolerated Will most likely need home oxygen Prognosis is quite guarded Pathology pending Medical and radiation oncology following We will continue to follow This patient was seen independently by the nurse practitioner I have personally seen and examined the patient, performed the documentation and the assessment and plan as written. Number of minutes spent on the visit: 22.
[2023-07-23] MEDS: DEXTROSE 5% IN WATER 1,000 ML IV SCH (14:56)
--- NOTE | 2023-07-23 15:28 | P.PN ---
Subjective Progress Note Date: 07/23/23 Principal diagnosis: lung mass At today's visit patient is resting comfortably in bedside chair. Patient is reporting improvement in breathing. Breathing is less labored. S/P bronch with biopsy, path pending Objective - Vital Signs Vital signs: Vital Signs Temp 97.5 F L 07/23/23 07:43 Pulse 100 07/23/23 12:05 Resp 17 07/23/23 07:43 BP 136/76 07/23/23 07:43 Pulse Ox 95 07/23/23 10:30 FiO2 45 07/19/23 19:40 Intake & Output 07/22/23 07/23/23 07/23/23 18:59 06:59 18:59 Intake Total 340 Output Total 200 950 Balance -200 -950 340 Weight 80.7 kg Intake: Oral 340 Output: Urine 200 950 Other: Voiding Method Bedside Commode Bedside Commode External Catheter External Catheter - Constitutional General appearance: Present: average body habitus, no acute distress - EENT Eyes: Present: anicteric sclerae, EOMI ENT: Present: hearing grossly normal - Respiratory Details: breathing is even and unlabored - Cardiovascular Details: skin warm and dry - Integumentary Integumentary: Absent: cyanotic - Neurologic Neurologic: Present: CNII-XII intact - Musculoskeletal Musculoskeletal: Present: strength equal bilaterally - Psychiatric Psychiatric: Present: A&O x's 3, appropriate affect, intact judgment & insight - Labs CBC & Chem 7: 07/22/23 03:49 07/23/23 05:53 Labs: Abnormal Lab Results - Last 24 Hours (Table) 07/23/23 Range/Units 05:53 Sodium 151 H (135-145) mmol/L Carbon Dioxide 35.8 H (21.6-31.8) mmol/L Creatinine 0.4 L (0.6-1.5) mg/dL BUN/Creatinine Ratio 49.50 H (12.00-20.00) Ratio Assessment and Plan (1) Acute exacerbation of chronic obstructive pulmonary disease Current Visit: Yes Status: Acute Code(s): J44.1 - CHRONIC OBSTRUCTIVE PULMONARY DISEASE W (ACUTE) EXACERBATION SNOMED Code(s): 864918176 (2) Lung mass Current Visit: Yes Status: Acute Code(s): R91.8 - OTHER NONSPECIFIC ABNORMAL FINDING OF LUNG FIELD SNOMED Code(s): 102291009 Plan: Right lung mass: -Significant history of COPD and nicotine abuse, with 40 pack years. Progressive shortness of breath since May after being diagnosed with COVID -CTA chest revealed no acute pulmonary embolism. Poor vascularity on the right with a large right pleural effusion with compressive atelectasis at the lung bases and apparent consolidation within right upper lung field. Consideration for underlying mass. Enlarged mediastinal adenopathy. -S/p bronchoscopy with biopsy. Pathology and cytology have been sent, results pending -Rad onc consult placed, note reviewed. Will plan for RT once pt more stable -Once breathing stabilized will obtain MRI brain. -PET CT will be scheduled outpt, and NGS and PDL1 will be requested on pathology -Clinic f/u will be scheduled upon discharge COPD exacerbation: -Pulm following, continues on inhalers and steroids
[2023-07-23 15:40] VITALS: BMI 33.6
[2023-07-23] MEDS: ALPRAZolam 0.25 MG TAB PO SCH (19:53)
--- NOTE | 2023-07-24 05:59 | P.PN ---
Subjective Progress Note Date: 07/23/23 This is a pleasant 63 years old female with past medical history of Coronary Artery Disease s/p stenting, Heart Failure, GERD/Reflux, Hyperlipidemia, Hypertension, her PCP is Dr. 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 No significant chest pain and no significant coughing No other urinary GI symptoms. No dizziness weakness or numbness. She quit smoking about 2 months ago, lately she used to smoke 5 cigarettes per day. No alcohol or illicit drugs. She is hemodynamically stable, afebrile saturating well on 2 L oxygen via nasal cannula Labs showed mild leukocytosis of 13 and 14,000. Sodium markedly low at 1.8 and 131. ProBNP is low at 178. Troponin were unremarkable. Labs including CBC, BMP liver enzymes are unremarkable EKG showing normal sinus rhythm at 85 CT of the lung showing normal pulmonary embolism and rule out right pleural effusion with right lung consolidation suspicious for a mass. 07/16/2023 Patient is awake and alert. He is getting breathing treatments, she is mild respiratory distress while she is sitting in her chair. Her pro-calcitonin significantly elevated at 12.8. Currently she is covered with IV Zosyn and normal saline 75 mL/h. Plan for bronchoscopy tomorrow as patient is highly suspicious for lung cancer We'll give Xanax when necessary for anxiety 07/17/2023 patient has more respiratory difficulty today and she has some difficulty talking. While she was sitting in bed. She is mildly tachycardic. Heart rhythm rate 20-24, she is saturating 97% on 3 L oxygen via nasal cannula. WBC 12,000, sodium is normal at 140. Pulmonary team are planning for bronchoscopy today and possible biopsy for her right lung mass 07/18/2023 Patient seen and evaluated in follow-up maintained in the ICU was on mechanical ventilation and recently just extubated 30 minutes ago maintained on BiPAP. Patient is receiving IV hydration also maintained on Lasix and will discontinue the Lasix and monitor closely with follow-up labs and continue hydration for now. Patient's blood pressures are on the lower side as well and will hold blood pressure medications and resume as needed. Chest x-ray today shows complete opacification patient on the right with pulmonary cook ship following closely. PEEP of 6 and FiO2 is 40% on BiPAP and will continue. Patient is status post bronchoscopy and biopsies are pending at this time. Patient is afebrile and also continued on empirically Zosyn. Patient is responsive and able to follow commands and answer questions appropriately. Recommend follow-up labs in the a.m. 07/19/2023 Patient is seen and evaluated in follow-up today and continues to be in the ICU is a downgrade awaiting a Medr bed currently.patient using BiPAP intermittently as needed at night and titrating down currently on 6 L via nasal cannula. CODE STATUS was addressed with pulmonary and patient is currently no code. Patient is afebrile with no worsening shortness of breath although does continue to be quite dyspneic on exam. Patient also having some coughing spells and reports some difficulty with swallowing medications and food and will have speech evaluate with a swallow assessment. Will have PT/OT therapy evaluate the patient as well as patient is significantly weak. 07/20/2023 Patient is seen and evaluated in follow-up this morning currently sitting up in the chair has been working with physical therapy maintained on 6-8 L high flow oxygen and being weaned as tolerated. Speech at bedside to evaluate the patient and patient has significant dysphasia and almost no swallowing capability recommending nothing by mouth. Patient okay for ice chips at this point. Patient reports her breathing is about the same and has not gotten significantly worse although continues to be extremely dyspneic with minimal exertion. Patient denies any pain and denies chest pain or palpitations. Patient is afebrile white count slightly improved and patient is maintained on empiric antibiotics. Pathology remains pending and oncology along with radiation onc ology was consulted. Overall poor prognosis. 07/21/2023 Patient evaluated today sitting up in the chair. Patient remains on high flow oxygen via nasal cannula at 7L. Saturations around 98% this could probably be weaned further. Patient has been evaluation by Dr. Katz rad/onc who is pending pathology reports for further recommendations. Patient needs further improvement in her respiratory status in order to undergo MRI and PET/CT for staging. Sodium is up to 150 today. Patient will be started on D5 water. Patient continues on IV zosyn. 07/22/2023 Patient is evaluated today sitting up in chair. No acute complains. Having intermittent cough. Continues on nasal cannula at 7L. Pending pathology. Pulmonary following. Patient also remains on IV zosyn. Sodium 149 today. D5 has been discontinued. 07/23/2023 Patient is seen in follow-up today on the [facility] unit currently on 4 L via nasal cannula. Weaning FiO2 as tolerated and will evaluated for home O2. Will also ask for physical therapy to reevaluate the patient as patient has had prolonged hospitalization with weakness. Will await PT/OT therapy evaluation to see if patient will require ECF for continued strength and mobility. Patient is currently afebrile denies worsening shortness of breath. Patient has been reevaluated by speech and swallowing has significantly improved and will be started on diet. Encourage small frequent meals and monitoring for any aspiration precautions. Sodium is 150 today and will continue D5W and follow-up with repeat labs Review of systems: Constitutional: No reports of fatigue, fever, or chills Cardiovascular: No reports of chest pain or palpitations Respiratory: reports of shortness of breath with a weak cough GI: No reports of nausea, vomiting, or diarrhea, reports continued difficulty with swallowing : No reports of dysuria or retention Neurovascular: reports of generalized weakness All medications have been reviewed Physical exam: GENERAL: The patient is awake, alert and oriented x3, not in any acute distress. Well developed, well nourished. currently on 4 L via nasal cannula and has been off BiPAP HEENT: Pupils are round and equally reacting to light. EOMI. No scleral icterus. No conjunctival pallor. Normocephalic, atraumatic. No pharyngeal erythema. No thyromegaly. CARDIOVASCULAR: S1 and S2 muffled PULMONARY: Diminished breath sounds on the right otherwise Chest is clear to auscultation, no wheezing , no crackles. Coarse rhonchi noted ABDOMEN: Soft, nontender, nondistended, normoactive bowel sounds. No palpable organomegaly. MUSCULOSKELETAL: No joint swelling or deformity. EXTREMITIES: No cyanosis, clubbing, or pedal edema. NEUROLOGICAL: Gross neurological examination did not reveal any focal deficits. Diffusely weak SKIN: No rashes. no petechiae. Assessment: Extensive Right lung mass status post bronchoscopy with pathology pending versus consolidation with large right pleural effusion and compressive atelectasis Acute hypoxic respiratory failure secondary to COPD as well as right lung mass status post bronchoscopy patient required intubation was extubated on 07/19/23. Mediastinal lymphadenopathy Possible post obstructive pneumonia is suspected Severe dysphasia Hypernatremia likely due to poor oral intake. Continued ongoing nicotine dependence History of severe COPD Hypertension Hyperlipidemia Chronic heart failure History of coronary artery disease status post stenting Obesity with BMI 32.0 GI prophylaxis DVT prophylaxis No code Plan: Patient has been weaning FiO2 as tolerated currently on 4 L via nasal cannula and will assess for home O2 as patient does not normally wear oxygen outpatient. Patient is status post a bronchoscopy had some difficulties requiring reintubation. Has since been extubated. Pathology remains pending Pulmonary cook ship following closely maintained on empiric antibiotics at this time along with albuterol treatments. Concerns for postobstructive pneumonia Complete opacification noted on the right on recent chest x-ray Pulmonary cook ship following and has consulted oncology along with radiation oncology for their input and recommendations Oncology will plan for outpatient follow-up including PET scan and discussion of biopsy results. Rad oncology will follow-up outpatient once more stable Overall prognosis is poor and guarded at this time and carcinoma is highly suspected D5 water at 50 mls/hr infusing and will continue in follow up on repeat labs in a.m. Patient has reevaluated the patient and swallow is improved and patient is able to tolerate oral intake in the diet is being started CODE STATUS was addressed and patient wishes to be no code PT/OT therapy to evaluate and will discuss further if patient requires rehab or going home with home care Possible discharge planning in the next 24-48 hours. Will also assess for home O2 The impression and plan of care has been dictated by Jaida Dolan, Nurse Practitioner as directed. MD Jc I have performed a history and examination and MDM of this patient, discussed the same with the dictator, and agree with the dictator's assessment and plan as written ,documented as a scribe. Based on total visit time, I have performed more than 50% of the visit. Objective - Vital Signs Vital signs: Vital Signs Temp 97.5 F L 07/23/23 07:43 Pulse 100 07/23/23 12:05 Resp 17 07/23/23 07:43 BP 136/76 07/23/23 07:43 Pulse Ox 95 07/23/23 10:30 FiO2 45 07/19/23 19:40 Intake & Output 07/22/23 07/23/23 07/23/23 18:59 06:59 18:59 Intake Total 100 Output Total 200 950 Balance -200 -950 100 Intake: Oral 100 Output: Urine 200 950 Other: Voiding Method Bedside Commode Bedside Commode External Catheter External Catheter - Labs CBC & Chem 7: 07/22/23 03:49 07/23/23 05:53 Labs: Abnormal Lab Results - Last 24 Hours (Table) 07/23/23 Range/Units 05:53 Sodium 151 H (135-145) mmol/L Carbon Dioxide 35.8 H (21.6-31.8) mmol/L Creatinine 0.4 L (0.6-1.5) mg/dL BUN/Creatinine Ratio 49.50 H (12.00-20.00) Ratio
[2023-07-24] MEDS: DEXTROSE 5% IN WATER 1,000 ML IV SCH ×2 (07:08→17:10)
[2023-07-24] MEDS: ALBUTEROL NEBULIZED 2.5 MG/3 ML INHALATION SCH ×4 (09:09→21:11)
[2023-07-24] MEDS: SYMBICORT 160-4.5 MCG INHALER INHALATION SCH ×2 (09:09→21:11)
[2023-07-24] MEDS: HEPARIN SODIUM,PORCINE 5,000 UNIT/ML 1 ML VIAL SQ SCH ×2 (09:17→21:42)
[2023-07-24] MEDS: predniSONE 10 MG TAB PO SCH (09:17)
--- NOTE | 2023-07-24 11:29 | P.PN ---
Subjective Progress Note Date: 07/24/23 This is a 63-year-old female patient, a chronic smoker started age of 18 and she quit smoking approximately 2 months ago. She presented emergency department was a 3 days history of shortness of breath. CAT scan of the chest was done in the emergency department and the patient was found to have extensive mediastinal lymphadenopathy and this is present in the right paratracheal area, right hilum, subcarinal area and the patient has mass effect with significant narrowing of the distal right main stem bronchus and bronchus intermedius and airways completely occluded past the distal right main stem. As such, the patient has extensive atelectatic changes in the right middle lobe and the right lower lobe with a small right-sided pleural effusion. Presentation is highly suspicious for small cell lung cancer. No evidence of any pulmonary embolism. The patient has of the discomfort of 14.2, sodium is at 131 initially at 128 probably related to SIADH. Troponins are negative. Pro-calcitonin level is at 12.8. She is afebrile. Hemodynamically stable. Pulse ox is 95% liters of oxygen by nasal cannula. No hemoptysis. 20 pounds weight loss. The patient is seen today 07/16/2023 in follow-up on the regular medical floor. She is awake and alert in no acute distress. She is maintaining good O2 saturations in the mid 90s on 2 L/m per nasal cannula. She's afebrile. Hemodynamically stable. No new labs today. She is continued on Zosyn. Heparin for DVT prophylaxis. Normal saline at 75 ML's per hour. Based on the above mentioned computed tomography scan findings we will plan for bronchoscopy and probable biopsies tomorrow. The patient is seen today 07/17/2023 in follow-up on the regular medical floor. She is currently sitting up in a chair at the bedside. Awake and alert in no acute distress. She is maintaining O2 saturations in the 90s on 3 L/m per nasal cannula. She's been afebrile. Hemodynamically stable. Blood cultures reveal no growth. White count 12.8. Hemoglobin 11.3. Platelets 517. Sodium 140. Potassium 4.1. Bicarb 28. BUN 17. Creatinine 0.6. Glucose 104. Remains on antibiotics in form of Zosyn. Plan is for bronchoscopy with biopsies today 07/17/23 Patient underwent bronchoscopy and there was evidence of complete obstruction of the right mainstem bronchus and right upper lobe bronchus, there was evidence of endobronchial tumor, cauliflower-shaped tumor involving the enrike, right upper lobe bronchus, right mainstem bronchus, and there was no visualization of the right upper lobe or right middle lobe or right lower lobe. Procedure was done, patient underwent multiple biopsies of the endobronchial tumor, brushings were done, au needle aspiration of 4R lymph node done. The procedure was well- tolerated, however the patient was extubated in the recovery room, however she had to be reintubated because she was acting confused and her O2 saturations were running low. Patient was placed back on mechanical ventilation with assist control rate of 24, tidal volume to 50, FiO2 on the percent, PEEP of 5. Patient will be transferred to the ICU, she would be kept on mechanical ventilation tonight, and will likely address weaning and extubation to BiPAP in the next 24 hours. Patient does have significant underlying COPD and I believe extubating the patient to BiPAP would be reasonable. In the meantime we will support the patient on mechanical ventilation, and we will address weaning and extubation in the next 24 hours. Patient was reevaluated today on 07/18/23, patient underwent bronchoscopy and multiple endobronchial biopsies of a large tumor completely occluding the right mainstem bronchus, right upper lobe, and she had to transfer enrike needle aspiration of lymph nodes. Patient was extubated after the procedure however she did not tolerate the extubation and she had to be reintubated by [employer]PLI[employer] QUALITY PERFORMANCE ANALYST. Patient was admitted to the ICU overnight, and I'm seeing her today, patient remains intubated and mechanically ventilated. She is on assist control rate of 26 tidal volume to 50 FiO2 45% and PEEP of 5 ABG showed a pO2 of 79 pCO2 50 pH of 7.40. Chest x-ray continues to show complete opacification of the right lung, left lung seems to be relatively clear. Patient is on propofol at 35 mcg/kg/m she is also on IV fluid at 100 mL per hour. After evaluating the patient, I recommended stopping propofol, patient was given a trial of pressure support of 12 and CPAP, and she was tolerating the weaning well. And I extub ated the patient to BiPAP, 12//40%, and I will follow along next to the patient evaluating her pulmonary status during this transition from mechanical ventilation to BiPAP. Patient seemed to do better on BiPAP, hence we'll keep her on BiPAP today, and we will continue bronchodilators, we will continue her IV fluids, and awaiting final pathology from her recent endobronchial biopsies. Overall prognosis considering the findings on the bronchoscopy yesterday, is extremely poor She was seen and examined today on 07/19/23, patient remains in the ICU, she was extubated yesterday successfully, presently on nasal cannula at 8 L/m, however she was on BiPAP at night 12/6/45%. O2 saturations in the mid 90s I cut her down to 5 L nasal cannula, patient did not sleep well last night. IV fluid is c ut down to KVO, patient is eating and drinking pathology from the bronchoscopy is still pending however in the meantime I'm recommending consultation with oncology and with radiation oncology. Chest x-ray continues to show complete opacification of the right hemithorax. No infiltrate in the left lung. WBC count is 15.7 hemoglobin is 11.1, basic metabolic profile is normal, renal profile is normal Patient was seen and examined today on 07/20/23, patient remains in the ICU, she is supposedly overflow, but overnight she developed worsening shortness of breath and she had to be placed on BiPAP, she remains on BiPAP this morning. She is on 12/6/45%, remains on Zosyn, remains on bronchodilators, and today I went ahead and added Decadron. Patient was seen by oncology, and again we are waiting for the tissue diagnosis/biopsy. Overall clinical picture does not look very promising, patient is marginal at best. And I did discuss the CODE STATUS with the patient yesterday, and she definitely wants to be DO NOT RESUSCITATE CODE STATUS. I will try to reach her son Christophe sometime later today and discussed her condition with him also. WBC count is 14.1 hemoglobin is 10.8, basic metabolic profile is normal sodium is up to 145. And renal profile is normal The patient is seen today 07/21/2023 in follow-up on the regular medical floor. Awake and alert in no acute distress. She is currently sitting up in a chair at the bedside. She is having difficulty breathing when lying in bed. She is maintaining O2 saturations in the 90s on 7 L high flow nasal cannula. She currently denies any worsening shortness of breath, cough or congestion. She denies any pain. Her family is at the bedside. Blood cultures revealed no growth. Bronchial wash cultures reveal no growth. Pathology is pending from biopsies. White count 13.8. Hemoglobin 11.1. Platelets 512. Sodium 130. Potassium 4.0. Bicarb 35. BUN 23. Creatinine 0.42. She remains on Symbicort, albuterol, Decadron. Heparin for DVT prophylaxis. Normal saline at [facility]. Antibiotics in the form of Zosyn. The patient is seen today 07/22/2023 in follow-up on the regular medical floor. She is sitting up in a chair. Awake and alert in no acute distress. Denies any worsening shortness of breath, cough or congestion. She is still on 7 high flow liters high flow nasal cannula to maintain O2 saturations in the 90s. Blood cultures revealed no growth. Bronchial wash cultures revealed no growth. Pathology still pending. White count 12.4. Hemoglobin 11.2. Platelets 539. Sodium 149. Potassium 3.9. Bicarb 35. BUN 23. Creatinine 0.44. Glucose 103. She is continued on Symbicort, albuterol, Decadron. Antibiotics in the form of Zosyn. The patient is seen today 07/23/2023 in follow-up on the regular medical floor. She is awake and alert in no acute distress. She is maintaining O2 saturations in the 90s on 5 L high flow nasal cannula. She denies any worsening shortness of breath, cough or congestion. Her oxygenation continues to improve. She may require home oxygen. Blood cultures revealed no growth. Bronchial wash cultures revealed no growth. Sodium 151. Potassium 3.9. Bicarb 36. BUN 20. Creatinine 0.4. She completed a course of antibiotics. She is on heparin for DVT prophylaxis. Continue on Symbicort and albuterol. Continued on a prednisone taper. The patient is seen today 07/24/2023 in follow-up on the regular medical floor. She is sitting up in a chair. Awake and alert in no acute distress. She is down to 4 L high flow nasal cannula maintaining O2 saturations in the 90s. She does desaturate to 88% and a brief walk on room air. Blood cultures revealed no growth. Bronchial wash cultures revealed no growth. Her lung biopsies did come back positive for small cell carcinoma. She is continued on Symbicort, albuterol, prednisone. Heparin for DVT prophylaxis. D5W at 75 ML's per hour. Objective - Vital Signs Vital signs: Vital Signs Temp 98.0 F 07/24/23 07:15 Pulse 93 07/24/23 09:48 Resp 16 07/24/23 07:15 BP 137/77 07/24/23 07:15 Pulse Ox 93 L 07/24/23 09:48 FiO2 45 07/19/23 19:40 Intake & Output 07/23/23 07/24/23 07/24/23 18:59 06:59 18:59 Intake Total 520 Output Total 500 Balance 20 Weight 80.7 kg Intake: Oral 520 Output: Urine 500 Other: Voiding Method External Catheter # Voids 1 # Bowel Movements 1 - Exam GENERAL EXAM: Alert, pleasant 63-year-old female, on 4 L high flow nasal cannula, in no apparent distress. HEAD: Normocephalic. EYES: Normal reaction of pupils, equal size. NOSE: Clear with pink turbinates. THROAT: No erythema or exudates. NECK: No masses, no JVD. CHEST: No chest wall deformity. LUNGS: Equal air entry with diminished breath sounds throughout the right lung. Left lung is clear. CVS: S1 and S2 normal with no audible murmur, regular rhythm. ABDOMEN: No hepatosplenomegaly, normal bowel sounds, no guarding or rigidity. SPINE: No scoliosis or deformity SKIN: No rashes CENTRAL NERVOUS SYSTEM: No focal deficits, tone is normal in all 4 extremities. EXTREMITIES: There is no peripheral edema. No clubbing, no cyanosis. Peripheral pulses are intact. - Labs CBC & Chem 7: 07/22/23 03:49 07/23/23 05:53 Assessment and Plan Assessment: Acute hypoxic and hypercapnic respiratory failure, post bronchoscopy, expected, requiring reintubation after the bronchoscopy and keeping the patient in the ICU overnight. This is related to her underlying COPD, also related to her underlying lung mass and significant opacification of the right lung secondary t o lung mass, and also related to her hilar adenopathy. This is all consistent with COPD and underlying bronchogenic carcinoma most likely squamous cell lung cancer. Bronchoscopy with biopsies performed on 07/17/2023. Pathology is positive for small cell carcinoma. Mediastinal mass involving the right paratracheal area extending into the subcarinal area causing mass effect and complete occlusion of the right distal main stem bronchus and bronchus intermedius and causing atelectasis of the right middle lobe and the right lower lobe with a small right-sided pleural effusion. The mass most likely originated from the hilar and caused significant local progression and mass effect involving the right main stem distally and bronchus intermedius. Hypernatremia, sodium 149 following previous hyponatremia corrected Postobstructive pneumonia involving the right lung area, currently on Zosyn Chronic and ongoing tobacco dependence Coronary artery disease, prior stenting of the LAD Hypertension Hyperlipidemia Plan: The patient was seen and evaluated Medications and pathology reviewed Patient informed of her small cell carcinoma diagnosis Medical and radiation oncology following Plan will be for MRI of the brain and outpatient PET scan Continue Symbicort and albuterol Titrate the FiO2 as tolerated Will most likely need home oxygen This patient was seen independently by the nurse practitioner I have personally seen and examined the patient, performed the documentation and the assessment and plan as written. Number of minutes spent on the visit: 24.
[2023-07-24 11:30] LABS: ALT 29 U/L (8-44); AST 42 U/L (13-35); Albumin 3.1 d/dL (3.8-4.9); Albumin/Globulin Ratio 1.03 Ratio (1.60-3.17); Alkaline Phosphatase 70 U/L (41-126); BUN/Creat Ratio 41.75 Ratio (12.00-20.00); Blood Urea Nitrogen 16.7 mg/dL (9.0-27.0); Calcium 9.3 mg/dL (8.7-10.3); Carbon Dioxide 34.6 mmol/L (21.6-31.8); Chloride 102 mmol/L (96-109); Glucose 147 mg/dL (70-110); Potassium 3.7 mmol/L (3.5-5.5); Sodium 146 mmol/L (135-145); Total Bilirubin 0.2 mg/dL (0.3-1.2); Total Protein 6.1 d/dL (6.2-8.2)
[2023-07-24] MEDS: IOPAMIDOL CONTRAST (ORAL USE) VIAL PO PRN ×2 (13:18→14:07)
--- NOTE | 2023-07-24 15:24 | P.PN ---
Subjective Progress Note Date: 07/24/23 Principal diagnosis: lung mass At today's visit patient is resting comfortably in bedside chair. Patient is reporting significant improvement in breathing. S/P bronch with biopsy, path revealing small cell carcinoma Objective - Vital Signs Vital signs: Vital Signs Temp 98.0 F 07/24/23 13:58 Pulse 85 07/24/23 13:58 Resp 17 07/24/23 13:58 BP 141/87 07/24/23 13:58 Pulse Ox 97 07/24/23 13:58 FiO2 45 07/19/23 19:40 Intake & Output 07/23/23 07/24/23 07/24/23 18:59 06:59 18:59 Intake Total 520 Output Total 500 Balance 20 Weight 80.7 kg Intake: Oral 520 Output: Urine 500 Other: Voiding Method External Catheter # Voids 1 # Bowel Movements 1 - Constitutional General appearance: Present: average body habitus, no acute distress - EENT Eyes: Present: anicteric sclerae, EOMI ENT: Present: hearing grossly normal - Respiratory Details: breathing is even and unlabored - Cardiovascular Details: skin warm and dry - Integumentary Integumentary: Absent: cyanotic - Musculoskeletal Musculoskeletal: Present: generalized weakness - Psychiatric Psychiatric: Present: A&O x's 3 - Labs CBC & Chem 7: 07/22/23 03:49 07/24/23 06:29 Labs: Abnormal Lab Results - Last 24 Hours (Table) 07/24/23 Range/Units 06:29 Sodium 146 H (135-145) mmol/L Carbon Dioxide 34.6 H (21.6-31.8) mmol/L Creatinine 0.4 L (0.6-1.5) mg/dL BUN/Creatinine Ratio 41.75 H (12.00-20.00) Ratio Glucose 147 H (70-110) mg/dL Total Bilirubin 0.2 L (0.3-1.2) mg/dL AST 42 H (13-35) U/L Total Protein 6.1 L (6.2-8.2) d/dL Albumin 3.1 L (3.8-4.9) d/dL Albumin/Globulin Ratio 1.03 L (1.60-3.17) Ratio Assessment and Plan (1) Acute exacerbation of chronic obstructive pulmonary disease Current Visit: Yes Status: Acute Code(s): J44.1 - CHRONIC OBSTRUCTIVE PULMONARY DISEASE W (ACUTE) EXACERBATION SNOMED Code(s): 456831679 (2) Lung mass Current Visit: Yes Status: Acute Code(s): R91.8 - OTHER NONSPECIFIC ABNORMAL FINDING OF LUNG FIELD SNOMED Code(s): 722346079 (3) Small cell lung carcinoma Current Visit: Yes Status: Acute Priority: High Code(s): C34.90 - MALIGNANT NEOPLASM OF UNSP PART OF UNSP BRONCHUS OR LUNG SNOMED Code(s): 387017289 Plan: Small cell lung carcinoma: -Significant history of COPD and nicotine abuse, with 40 pack years. Progressive shortness of breath since May after being diagnosed with COVID -CTA chest revealed no acute pulmonary embolism. Poor vascularity on the right with a large right pleural effusion with compressive atelectasis at the lung ba ses and apparent consolidation within right upper lung field. Consideration for underlying mass. Enlarged mediastinal adenopathy. -S/p bronchoscopy with biopsy. Pathology and cytology revealing small cell carcinoma. Diagnosis reviewed with patient and family -Rad onc consult placed. Spoke with Dr. Oneill, plan to await staging imaging and follow-up outpatient -Will obtain MRI brain and CT AP for staging. Spoke with IM team and recommended keeping patient admitted to complete imaging and possibly starting inpt chemo prior to discharge to rehab, as there would be concern breathing would worsen and pt would end up getting readmitted for the same -PET CT and clinic f/u will be scheduled once discharged from rehab Pt updated on POC and is agreeable COPD exacerbation: -Pulm following, continues on inhalers and steroids
--- NOTE | 2023-07-24 17:59 | MR ---
EXAMINATION TYPE: MR brain wo/w con DATE OF EXAM: 07/24/2023 5:17 PM CLINICAL INDICATION:Female, 63 years old with history of small cell lung carcinoma, staging, Small Ce ll Lung carcinoma, staging COMPARISON: None TECHNIQUE: Multi planar, multi sequence imaging was performed through the brain including: T1, T2, In version recovery, susceptibility weighted imaging and gradient echo imaging and Diffusion weighted im aging. The patient was then given intravenous contrast and multi planar, T1 fat-saturation images wer e obtained. IV Contrast: 8 cc Gadavist FINDINGS: Small focus of low T1 high T2 signal with postcontrast enhancement in the left frontal lobe with associated high DWI signal measuring 5 mm. Intracranial arterial flow voids are maintained. Mid line structures show no abnormality. Scattered foci of high T2 signal intensity are seen within the p eriventricular white matter. The susceptibility weighted images do not reveal any evidence for micro- hemorrhage. The bone marrow signal is within normal limits. Paranasal sinuses and mastoid air cells: No significant paranasal sinus disease. Visualized orbits: Orbital contents are intact. IMPRESSION: 1. Small focus of enhancement in the left frontal lobe concerning for metastatic disease. 2. No evidence for acute/subacute CVA. 3. Nonspecific white matter changes, likely related to small vessel ischemic disease.
--- NOTE | 2023-07-24 21:31 | CT ---
EXAMINATION TYPE: CT abdomen pelvis w con DATE OF EXAM: 07/24/2023 COMPARISON: Chest 07/06/2023 HISTORY: 63-year-old female Hx. of small cell lung carcinoma, observation for mets/staging. TECHNIQUE: Contiguous axial scanning of the abdomen and pelvis following administration of 100 ml Iso [employer] 300 IV contrast. Delayed images through the kidneys and coronal/sagittal reconstructions perform ed. CT DLP: 1172.8 mGycm Automated exposure control for dose reduction was used. FINDINGS: Extensive anasarca changes. Heart normal size. Trace basilar pericardial fluid. There is a moderate to large right pleural effusion redemonstrated. Possible mass infiltrating throughout the vi sualized right lower lobe. There is abnormal pleural study throughout the visualized right lower lung . Multiple hepatic masses measuring up to 4.2 cm. Portal venous system is patent. No biliary ductal dil atation. Gallbladder, spleen, and pancreas within normal limits. A couple small renal cortical cysts on both sides measuring up to 1 cm. Symmetric uptake and excretio n of contrast from both kidneys. Nonspecific mild nodular thickening of the bilateral adrenal glands are suspicious. Marked generalized anasarca change continues in the visualized abdomen and throughout the pelvis. There is also generalized mesenteric edema present. No dilated small bowel or free fluid. Normal appendix. Oral contrast progressed to the distal third t ransverse colon. There is sigmoid diverticulosis without pericolonic inflammatory change. Bladder partially distended. Uterus is anteverted. Ovaries are visualized. Mild to moderate pelvic fr ee fluid. Bones: No osseous destructive process seen. Moderate to severe degenerative change left hip. IMPRESSION: 1. MARKED GENERALIZED ANASARCA CHANGE. 2. KNOWN CHANGES IN THE VISUALIZED RIGHT LUNG. POSSIBLE EXTENSIVE TUMOR INFILTRATING THROUGHOUT THE V ISUALIZED RIGHT LOWER LOBE. PLEURAL DISEASE WITH MODERATE RIGHT PLEURAL EFFUSION AND PLEURAL STUDDING . 3. MULTIPLE HEPATIC METASTASES MEASURING UP TO 4.2 CM. 4. MILD NODULAR THICKENING OF THE BILATERAL ADRENAL GLANDS IS ALSO SUSPICIOUS. 5. INCIDENTAL: SIGMOID DIVERTICULOSIS WITHOUT ACUTE DIVERTICULITIS. MODERATE TO SEVERE LEFT HIP OA.
[2023-07-24] MEDS: ALPRAZolam 0.25 MG TAB PO SCH (21:42)
--- NOTE | 2023-07-25 05:45 | P.PN ---
Subjective Progress Note Date: 07/24/23 This is a pleasant 63 years old female with past medical history of Coronary Artery Disease s/p stenting, Heart Failure, GERD/Reflux, Hyperlipidemia, Hypertension, her PCP is Dr. Navarrete and golf club weigher Dr. Neff for her history of coronary artery disease status post stent Patient presents because of worsening dyspnea over 3 days especially with exertion she has to stop to catch up with her breath. No significant chest pain and no significant coughing No other urinary GI symptoms. No dizziness weakness or numbness. She quit smoking about 2 months ago, lately she used to smoke 5 cigarettes per day. No alcohol or illicit drugs. She is hemodynamically stable, afebrile saturating well on 2 L oxygen via nasal cannula Labs showed mild leukocytosis of 13 and 14,000. Sodium markedly low at 1.8 and 131. ProBNP is low at 178. Troponin were unremarkable. Labs including CBC, BMP liver enzymes are unremarkable EKG showing normal sinus rhythm at 85 CT of the lung showing normal pulmonary embolism and rule out right pleural effusion with right lung consolidation suspicious for a mass. 07/16/2023 Patient is awake and alert. He is getting breathing treatments, she is mild respiratory distress while she is sitting in her chair. Her pro-calcitonin significantly elevated at 12.8. Currently she is covered with IV Zosyn and normal saline 75 mL/h. Plan for bronchoscopy tomorrow as patient is highly suspicious for lung cancer We'll give Xanax when necessary for anxiety 07/17/2023 patient has more respiratory difficulty today and she has some difficulty talking. While she was sitting in bed. She is mildly tachycardic. Heart rhythm rate 20-24, she is saturating 97% on 3 L oxygen via nasal cannula. WBC 12,000, sodium is normal at 140. Pulmonary team are planning for bronchoscopy today and possible biopsy for her right lung mass 07/18/2023 Patient seen and evaluated in follow-up maintained in the ICU was on mechanical ventilation and recently just extubated 30 minutes ago maintained on BiPAP. Patient is receiving IV hydration also maintained on Lasix and will discontinue the Lasix and monitor closely with follow-up labs and continue hydration for now. Patient's blood pressures are on the lower side as well and will hold blood pressure medications and resume as needed. Chest x-ray today shows complete opacification patient on the right with pulmonary licensing engineer following closely. PEEP of 6 and FiO2 is 40% on BiPAP and will continue. Patient is status post bronchoscopy and biopsies are pending at this time. Patient is afebrile and also continued on empirically Zosyn. Patient is responsive and able to follow commands and answer questions appropriately. Recommend follow-up labs in the a.m. 07/19/2023 Patient is seen and evaluated in follow-up today and continues to be in the ICU is a downgrade awaiting a Medr bed currently.patient using BiPAP intermittently as needed at night and titrating down currently on 6 L via nasal cannula. CODE STATUS was addressed with pulmonary and patient is currently no code. Patient is afebrile with no worsening shortness of breath although does continue to be quite dyspneic on exam. Patient also having some coughing spells and reports some difficulty with swallowing medications and food and will have speech evaluate with a swallow assessment. Will have PT/OT therapy evaluate the patient as well as patient is significantly weak. 07/20/2023 Patient is seen and evaluated in follow-up this morning currently sitting up in the chair has been working with physical therapy maintained on 6-8 L high flow oxygen and being weaned as tolerated. Speech at bedside to evaluate the patient and patient has significant dysphasia and almost no swallowing capability recommending nothing by mouth. Patient okay for ice chips at this point. Patient reports her breathing is about the same and has not gotten significantly worse although continues to be extremely dyspneic with minimal exertion. Patient denies any pain and denies chest pain or palpitations. Patient is afebrile white count slightly improved and patient is maintained on empiric antibiotics. Pathology remains pending and oncology along with radiation onc ology was consulted. Overall poor prognosis. 07/21/2023 Patient evaluated today sitting up in the chair. Patient remains on high flow oxygen via nasal cannula at 7L. Saturations around 98% this could probably be weaned further. Patient has been evaluation by Dr. Katz rad/onc who is pending pathology reports for further recommendations. Patient needs further improvement in her respiratory status in order to undergo MRI and PET/CT for staging. Sodium is up to 150 today. Patient will be started on D5 water. Patient continues on IV zosyn. 07/22/2023 Patient is evaluated today sitting up in chair. No acute complains. Having intermittent cough. Continues on nasal cannula at 7L. Pending pathology. Pulmonary following. Patient also remains on IV zosyn. Sodium 149 today. D5 has been discontinued. 07/23/2023 Patient is seen in follow-up today on the [facility] unit currently on 4 L via nasal cannula. Weaning FiO2 as tolerated and will evaluated for home O2. Will also ask for physical therapy to reevaluate the patient as patient has had prolonged hospitalization with weakness. Will await PT/OT therapy evaluation to see if patient will require ECF for continued strength and mobility. Patient is currently afebrile denies worsening shortness of breath. Patient has been reevaluated by speech and swallowing has significantly improved and will be started on diet. Encourage small frequent meals and monitoring for any aspiration precautions. Sodium is 150 today and will continue D5W and follow-up with repeat labs 07/24/2023 Patient is seen in follow-up this morning currently sitting up in the chair maintained on 4 L reporting improvement in her shortness of breath. Patient co ntinues with significant weakness has been evaluated by physical therapy recommending rehab and patient is agreeable. Social work following submitting for insurance authorization. Patient also being followed by oncology along with radiation oncology and pulmonary. Oncology has ordered CT abdomen and pelvis along with MRI of the brain for further staging as oncology would like to possibly initiate chemotherapy while inpatient. Patient is currently afebrile with no reports of chest pain or palpitations. Sodium levels are improving we'll continue gentle D5 and water and follow-up with repeat labs Review of systems: Constitutional: No reports of fatigue, fever, or chills Cardiovascular: No reports of chest pain or palpitations Respiratory: reports of shortness of breath with a weak cough GI: No reports of nausea, vomiting, or diarrhea, reports improvement in swallowing and tolerating diet : No reports of dysuria or retention Neurovascular: reports of generalized weakness All medications have been reviewed Physical exam: GENERAL: The patient is awake, alert and oriented x3, not in any acute distress. Well developed, well nourished. currently on 4 L via nasal cannula and has been off BiPAP HEENT: Pupils are round and equally reacting to light. EOMI. No scleral icterus. No conjunctival pallor. Normocephalic, atraumatic. No pharyngeal erythema. No thyromegaly. CARDIOVASCULAR: S1 and S2 muffled PULMONARY: Diminished breath sounds on the right otherwise Chest is clear to auscultation, no wheezing , no crackles. Coarse rhonchi noted ABDOMEN: Soft, nontender, nondistended, normoactive bowel sounds. No palpable organomegaly. MUSCULOSKELETAL: No joint swelling or deformity. EXTREMITIES: No cyanosis, clubbing, or pedal edema. NEUROLOGICAL: Gross neurological examination did not reveal any focal deficits. Diffusely weak SKIN: No rashes. no petechiae. Assessment: Extensive Right lung mass status post bronchoscopy with pathology revealing small cell carcinoma Acute hypoxic respiratory failure secondary to COPD as well as right lung mass status post bronchoscopy patient required intubation was extubated on 07/19/23. Mediastinal lymphadenopathy Possible post obstructive pneumonia is suspected Severe dysphagia status post mechanical ventilation, improved Hypernatremia likely due to poor oral intake. Ending down Continued ongoing nicotine dependence History of severe COPD Hypertension Hyperlipidemia Chronic heart failure History of coronary artery disease status post stenting Obesity with BMI 32.0 GI prophylaxis DVT prophylaxis No code Plan: Patient has been weaning FiO2 as tolerated currently on 4 L via nasal cannula and will assess for home O2 as patient does not normally wear oxygen outpatient. Patient is status post a bronchoscopy had some difficulties requiring reintubation. Has since been extubated. Pathology reveals small cell carcinoma Pulmonary licensing engineer following closely maintained on empiric antibiotics at this time along with albuterol treatments. Concerns for postobstructive pneumonia Oncology recommending starting staging while inpatient and has ordered CT abdomen and pelvis along with MRI of the brain. Considering inpatient chemotherapy if patient is high risk for readmission due to her respiratory status and would likely experience increased worsening shortness of breath while outpatient. Oncology will plan for outpatient follow-up including PET scan. Rad oncology will follow-up outpatient once more stable Overall prognosis is poor and guarded at this time . Patient wishes to be no code D5 water at 50 mls/hr infusing and will continue in follow up on repeat labs in a.m. sodium levels are improving PT/OT therapy has evaluated the patient recommending rehab and patient is agreeable. Social work following and has submitted for insurance authorization which is pending The impression and plan of care has been dictated by Jaida Dolan, Nurse Practitioner as directed. MD Jc I have performed a history and examination and MDM of this patient, discussed the same with the dictator, and agree with the dictator's assessment and plan as written ,documented as a scribe. Based on total visit time, I have performed more than 50% of the visit. Objective - Vital Signs Vital signs: Vital Signs Temp 98.0 F 07/24/23 07:15 Pulse 100 07/24/23 12:22 Resp 16 07/24/23 07:15 BP 137/77 07/24/23 07:15 Pulse Ox 93 L 07/24/23 09:48 FiO2 45 07/19/23 19:40 Intake & Output 07/23/23 07/24/23 07/24/23 18:59 06:59 18:59 Intake Total 520 Output Total 500 Balance 20 Weight 80.7 kg Intake: Oral 520 Output: Urine 500 Other: Voiding Method External Catheter # Voids 1 # Bowel Movements 1 - Labs CBC & Chem 7: 07/22/23 03:49 07/24/23 06:29 Labs: Abnormal Lab Results - Last 24 Hours (Table) 07/24/23 Range/Units 06:29 Sodium 146 H (135-145) mmol/L Carbon Dioxide 34.6 H (21.6-31.8) mmol/L Creatinine 0.4 L (0.6-1.5) mg/dL BUN/Creatinine Ratio 41.75 H (12.00-20.00) Ratio Glucose 147 H (70-110) mg/dL Total Bilirubin 0.2 L (0.3-1.2) mg/dL AST 42 H (13-35) U/L Total Protein 6.1 L (6.2-8.2) d/dL Albumin 3.1 L (3.8-4.9) d/dL Albumin/Globulin Ratio 1.03 L (1.60-3.17) Ratio
[2023-07-25] MEDS: carvediloL 12.5 MG TAB PO SCH ×2 (06:51→16:32)
[2023-07-25] MEDS: DEXTROSE 5% IN WATER 1,000 ML IV SCH ×2 (06:57→16:33)
[2023-07-25] MEDS: predniSONE 10 MG TAB PO SCH (08:01)
[2023-07-25] MEDS: HEPARIN SODIUM,PORCINE 5,000 UNIT/ML 1 ML VIAL SQ SCH ×2 (08:02→20:23)
[2023-07-25] MEDS: ALBUTEROL NEBULIZED 2.5 MG/3 ML INHALATION SCH ×4 (08:58→20:01)
[2023-07-25 09:00] LABS: Basophils # (A) 0.04 X 10*3/uL (0.00-0.10); Basophils % (A) 0.3 %; Eosinophils # (A) 0.04 X 10*3/uL (0.04-0.35); Eosinophils % (A) 0.3 %; HCT 37.6 % (37.2-46.3); HGB 11.7 d/dL (12.0-15.0); Lymphocytes # (A) 1.21 X 10*3/uL (0.90-5.00); Lymphocytes % (A) 9.1 %; MCH 29.6 pg (27.0-32.0); MCHC 31.1 d/dL (32.0-37.0); MCV 95.2 FL (80.0-97.0); Mean Platelet Volume 9.7 FL (9.5-12.2); Monocytes # (A) 0.78 X 10*3/uL (0.20-1.00); Monocytes % (A) 5.9 %; NRBC Per 100 WBC 0.02 X 10*3/uL (0.00-0.01); Neutrophils # (A) 11.09 X 10*3/uL (1.80-7.70); Neutrophils % (A) 83.6 %; Platelet Count 469 X 10*3/uL (140-440); RBC 3.95 X 10*6/uL (4.10-5.20); RDW 14.1 % (11.5-14.5); WBC 13.26 X 10*3/uL (4.50-10.00)
[2023-07-25] MEDS: SYMBICORT 160-4.5 MCG INHALER INHALATION SCH ×2 (09:03→20:01)
[2023-07-25 09:14] LABS: BUN/Creat Ratio 30.25 Ratio (12.00-20.00); Blood Urea Nitrogen 12.1 mg/dL (9.0-27.0); Calcium 8.6 mg/dL (8.7-10.3); Carbon Dioxide 33.7 mmol/L (21.6-31.8); Chloride 99 mmol/L (96-109); Glucose 126 mg/dL (70-110); Potassium 3.4 mmol/L (3.5-5.5); Sodium 141 mmol/L (135-145)
--- NOTE | 2023-07-25 11:32 | P.PN ---
Subjective Progress Note Date: 07/25/23 This is a 63-year-old female patient, a chronic smoker started age of 18 and she quit smoking approximately 2 months ago. She presented emergency department was a 3 days history of shortness of breath. CAT scan of the chest was done in the emergency department and the patient was found to have extensive mediastinal lymphadenopathy and this is present in the right paratracheal area, right hilum, subcarinal area and the patient has mass effect with significant narrowing of the distal right main stem bronchus and bronchus intermedius and airways completely occluded past the distal right main stem. As such, the patient has extensive atelectatic changes in the right middle lobe and the right lower lobe with a small right-sided pleural effusion. Presentation is highly suspicious for small cell lung cancer. No evidence of any pulmonary embolism. The patient has of the discomfort of 14.2, sodium is at 131 initially at 128 probably related to SIADH. Troponins are negative. Pro-calcitonin level is at 12.8. She is afebrile. Hemodynamically stable. Pulse ox is 95% liters of oxygen by nasal cannula. No hemoptysis. 20 pounds weight loss. The patient is seen today 07/16/2023 in follow-up on the regular medical floor. She is awake and alert in no acute distress. She is maintaining good O2 saturations in the mid 90s on 2 L/m per nasal cannula. She's afebrile. Hemodynamically stable. No new labs today. She is continued on Zosyn. Heparin for DVT prophylaxis. Normal saline at 75 ML's per hour. Based on the above mentioned computed tomography scan findings we will plan for bronchoscopy and probable biopsies tomorrow. The patient is seen today 07/17/2023 in follow-up on the regular medical floor. She is currently sitting up in a chair at the bedside. Awake and alert in no acute distress. She is maintaining O2 saturations in the 90s on 3 L/m per nasal cannula. She's been afebrile. Hemodynamically stable. Blood cultures reveal no growth. White count 12.8. Hemoglobin 11.3. Platelets 517. Sodium 140. Potassium 4.1. Bicarb 28. BUN 17. Creatinine 0.6. Glucose 104. Remains on antibiotics in form of Zosyn. Plan is for bronchoscopy with biopsies today 07/17/23 Patient underwent bronchoscopy and there was evidence of complete obstruction of the right mainstem bronchus and right upper lobe bronchus, there was evidence of endobronchial tumor, cauliflower-shaped tumor involving the enrike, right upper lobe bronchus, right mainstem bronchus, and there was no visualization of the right upper lobe or right middle lobe or right lower lobe. Procedure was done, patient underwent multiple biopsies of the endobronchial tumor, brushings were done, au needle aspiration of 4R lymph node done. The procedure was well- tolerated, however the patient was extubated in the recovery room, however she had to be reintubated because she was acting confused and her O2 saturations were running low. Patient was placed back on mechanical ventilation with assist control rate of 24, tidal volume to 50, FiO2 on the percent, PEEP of 5. Patient will be transferred to the ICU, she would be kept on mechanical ventilation tonight, and will likely address weaning and extubation to BiPAP in the next 24 hours. Patient does have significant underlying COPD and I believe extubating the patient to BiPAP would be reasonable. In the meantime we will support the patient on mechanical ventilation, and we will address weaning and extubation in the next 24 hours. Patient was reevaluated today on 07/18/23, patient underwent bronchoscopy and multiple endobronchial biopsies of a large tumor completely occluding the right mainstem bronchus, right upper lobe, and she had to transfer enrike needle aspiration of lymph nodes. Patient was extubated after the procedure however she did not tolerate the extubation and she had to be reintubated by [facility] [employer]. Patient was admitted to the ICU overnight, and I'm seeing her today, patient remains intubated and mechanically ventilated. She is on assist control rate of 26 tidal volume to 50 FiO2 45% and PEEP of 5 ABG showed a pO2 of 79 pCO2 50 pH of 7.40. Chest x-ray continues to show complete opacification of the right lung, left lung seems to be relatively clear. Patient is on propofol at 35 mcg/kg/m she is also on IV fluid at 100 mL per hour. After evaluating the patient, I recommended stopping propofol, patient was given a trial of pressure support of 12 and CPAP, and she was tolerating the weaning well. And I extub ated the patient to BiPAP, 12//40%, and I will follow along next to the patient evaluating her pulmonary status during this transition from mechanical ventilation to BiPAP. Patient seemed to do better on BiPAP, hence we'll keep her on BiPAP today, and we will continue bronchodilators, we will continue her IV fluids, and awaiting final pathology from her recent endobronchial biopsies. Overall prognosis considering the findings on the bronchoscopy yesterday, is extremely poor She was seen and examined today on 07/19/23, patient remains in the ICU, she was extubated yesterday successfully, presently on nasal cannula at 8 L/m, however she was on BiPAP at night 12/6/45%. O2 saturations in the mid 90s I cut her down to 5 L nasal cannula, patient did not sleep well last night. IV fluid is c ut down to KVO, patient is eating and drinking pathology from the bronchoscopy is still pending however in the meantime I'm recommending consultation with oncology and with radiation oncology. Chest x-ray continues to show complete opacification of the right hemithorax. No infiltrate in the left lung. WBC count is 15.7 hemoglobin is 11.1, basic metabolic profile is normal, renal profile is normal Patient was seen and examined today on 07/20/23, patient remains in the ICU, she is supposedly overflow, but overnight she developed worsening shortness of breath and she had to be placed on BiPAP, she remains on BiPAP this morning. She is on 12/6/45%, remains on Zosyn, remains on bronchodilators, and today I went ahead and added Decadron. Patient was seen by oncology, and again we are waiting for the tissue diagnosis/biopsy. Overall clinical picture does not look very promising, patient is marginal at best. And I did discuss the CODE STATUS with the patient yesterday, and she definitely wants to be DO NOT RESUSCITATE CODE STATUS. I will try to reach her son Christophe sometime later today and discussed her condition with him also. WBC count is 14.1 hemoglobin is 10.8, basic metabolic profile is normal sodium is up to 145. And renal profile is normal The patient is seen today 07/21/2023 in follow-up on the regular medical floor. Awake and alert in no acute distress. She is currently sitting up in a chair at the bedside. She is having difficulty breathing when lying in bed. She is maintaining O2 saturations in the 90s on 7 L high flow nasal cannula. She currently denies any worsening shortness of breath, cough or congestion. She denies any pain. Her family is at the bedside. Blood cultures revealed no growth. Bronchial wash cultures reveal no growth. Pathology is pending from biopsies. White count 13.8. Hemoglobin 11.1. Platelets 512. Sodium 130. Potassium 4.0. Bicarb 35. BUN 23. Creatinine 0.42. She remains on Symbicort, albuterol, Decadron. Heparin for DVT prophylaxis. Normal saline at [facility] Antibiotics in the form of Zosyn. The patient is seen today 07/22/2023 in follow-up on the regular medical floor. She is sitting up in a chair. Awake and alert in no acute distress. Denies any worsening shortness of breath, cough or congestion. She is still on 7 high flow liters high flow nasal cannula to maintain O2 saturations in the 90s. Blood cultures revealed no growth. Bronchial wash cultures revealed no growth. Pathology still pending. White count 12.4. Hemoglobin 11.2. Platelets 539. Sodium 149. Potassium 3.9. Bicarb 35. BUN 23. Creatinine 0.44. Glucose 103. She is continued on Symbicort, albuterol, Decadron. Antibiotics in the form of Zosyn. The patient is seen today 07/23/2023 in follow-up on the regular medical floor. She is awake and alert in no acute distress. She is maintaining O2 saturations in the 90s on 5 L high flow nasal cannula. She denies any worsening shortness of breath, cough or congestion. Her oxygenation continues to improve. She may require home oxygen. Blood cultures revealed no growth. Bronchial wash cultures revealed no growth. Sodium 151. Potassium 3.9. Bicarb 36. BUN 20. Creatinine 0.4. She completed a course of antibiotics. She is on heparin for DVT prophylaxis. Continue on Symbicort and albuterol. Continued on a prednisone taper. The patient is seen today 07/24/2023 in follow-up on the regular medical floor. She is sitting up in a chair. Awake and alert in no acute distress. She is down to 4 L high flow nasal cannula maintaining O2 saturations in the 90s. She does desaturate to 88% and a brief walk on room air. Blood cultures revealed no growth. Bronchial wash cultures revealed no growth. Her lung biopsies did come back positive for small cell carcinoma. She is continued on Symbicort, albuterol, prednisone. Heparin for DVT prophylaxis. D5W at 75 ML's per hour. The patient is seen today 07/25/2023 in follow-up on the regular medical floor. She is awake and alert in no acute distress. Sitting up in a chair at the bedside. She is maintaining O2 saturations in the 90s on 4 L/m per nasal cannula. She is continued on Symbicort, prednisone and albuterol. Heparin for DVT prophylaxis. Prednisone taper. MRI of the brain revealed a small focus of enhancement in the left frontal lobe concerning for metastatic disease. No evidence of acute/subacute CVA. Nonspecific white matter changes. DT scan of the abdomen and pelvis revealed markedly generalized anasarca. No changes in the visualized right lung. Also extensive tumor infiltrating throughout the visualized right lower lobe. Pleural disease with moderate right pleural effus ion and pleural studding. Multiple hepatic metastases measuring up to 4.2 cm. Mild nodular thickening of the bilateral adrenal glands also suspicious. White count 13.2. Hemoglobin 11.7. Platelets 469. Sodium 141. Potassium 3.4. Bicarb 34. BUN 12. Creatinine 0.4. Glucose 126. Objective - Vital Signs Vital signs: Vital Signs Temp 98.2 F 07/25/23 07:27 Pulse 85 07/25/23 09:12 Resp 16 07/25/23 07:27 BP 148/81 07/25/23 07:27 Pulse Ox 94 L 07/25/23 07:27 FiO2 45 07/19/23 19:40 Intake & Output 07/24/23 07/25/23 07/25/23 18:59 06:59 18:59 Intake Total 118 Output Total 400 600 Balance -400 -600 118 Intake: Oral 118 Output: Urine 400 600 Other: Voiding Method External Catheter # Bowel Movements 1 - Exam GENERAL EXAM: Alert, weak, debilitated 63-year-old female, up in a chair, on 4 L nasal cannula, in no apparent distress. HEAD: Normocephalic. EYES: Normal reaction of pupils, equal size. NOSE: Clear with pink turbinates. THROAT: No erythema or exudates. NECK: No masses, no JVD. CHEST: No chest wall deformity. LUNGS: Equal air entry with diminished breath sounds throughout the right lung. Left lung is clear. CVS: S1 and S2 normal with no audible murmur, regular rhythm. ABDOMEN: No hepatosplenomegaly, normal bowel sounds, no guarding or rigidity. SPINE: No scoliosis or deformity SKIN: No rashes CENTRAL NERVOUS SYSTEM: No focal deficits, tone is normal in all 4 extremities. EXTREMITIES: There is no peripheral edema. No clubbing, no cyanosis. Peripheral pulses are intact. - Labs CBC & Chem 7: 07/25/23 05:48 07/25/23 05:48 Labs: Abnormal Lab Results - Last 24 Hours (Table) 07/24/23 07/25/23 07/25/23 Range/Units 06:29 05:48 05:48 WBC 13.26 H (4.50-10.00) X 10*3/uL RBC 3.95 L (4.10-5.20) X 10*6/uL Hgb 11.7 L (12.0-15.0) d/dL MCHC 31.1 L (32.0-37.0) d/dL Plt Count 469 H (140-440) X 10*3/uL Neutrophils # 11.09 H (1.80-7.70) X 10*3/uL NRBC/100 WBC Diff 0.02 H (0.00-0.01) X 10*3/uL Sodium 146 H (135-145) mmol/L Potassium 3.4 L (3.5-5.5) mmol/L Carbon Dioxide 34.6 H 33.7 H (21.6-31.8) mmol/L Creatinine 0.4 L 0.4 L (0.6-1.5) mg/dL BUN/Creatinine Ratio 41.75 H 30.25 H (12.00-20.00) Ratio Glucose 147 H 126 H (70-110) mg/dL Calcium 8.6 L (8.7-10.3) mg/dL Total Bilirubin 0.2 L (0.3-1.2) mg/dL AST 42 H (13-35) U/L Total Protein 6.1 L (6.2-8.2) d/dL Albumin 3.1 L (3.8-4.9) d/dL Albumin/Globulin Ratio 1.03 L (1.60-3.17) Ratio Assessment and Plan Assessment: Acute hypoxic and hypercapnic respiratory failure related to her underlying COPD, also related to her underlying lung mass and significant opacification of the right lung secondary to lung mass, and also related to her hilar adenopathy. This is all consistent with COPD and underlying bronchogenic carcinoma most likely squamous cell lung cancer. Bronchoscopy with biopsies performed on 07/17/2023. Pathology is positive for small cell carcinoma. MRI of the brain revealed a small focus of enhancement in the left frontal lobe concerning for metastatic disease. No evidence of acute/subacute CVA. Nonspecific white matter changes. DT scan of the abdomen and pelvis revealed markedly generalized anasarca. No changes in the visualized right lung. Also extensive tumor infiltrating throughout the visualized right lower lobe. Pleural disease with moderate right pleural effusion and pleural studding. Multiple hepatic metastases measuring up to 4.2 cm. Mild nodular thickening of the bilateral adrenal glands also suspicious. Mediastinal mass involving the right paratracheal area extending into the subcarinal area causing mass effect and complete occlusion of the right distal main stem bronchus and bronchus intermedius and causing atelectasis of the right middle lobe and the right lower lobe with a small right-sided pleural effusion. The mass most likely originated from the hilar and caused significant local progression and mass effect involving the right main stem distally and bronchus intermedius. Hypernatremia, sodium 149 following previous hyponatremia corrected Postobstructive pneumonia involving the right lung area, currently on Zosyn Chronic and ongoing tobacco dependence Coronary artery disease, prior stenting of the LAD Hypertension Hyperlipidemia Plan: The patient was seen and evaluated MRI of the brain, computed tomography scan of the abdomen and pelvis, medications and labs reviewed Patient informed of her metastatic disease Medical and radiation oncology following Continue Symbicort, prednisone and albuterol Titrate the FiO2 as tolerated Will most likely need home oxygen Will most likely need subacute rehabilitation post discharge This patient was seen independently by the nurse practitioner I have personally seen and examined the patient, performed the documentation and the assessment and plan as written. Number of minutes spent on the visit: 22.
[2023-07-25] MEDS ORDERED: ONDANSETRON 4 MG/2 ML VIAL IVP PRN (18:34)
--- NOTE | 2023-07-25 20:05 | P.PN ---
Subjective Progress Note Date: 07/25/23 Principal diagnosis: lung mass, SCLC At today's visit patient is resting comfortably in bedside chair. Patient is reporting improvement in breathing/SOB. S/P bronch with biopsy, path revealing small cell carcinoma Objective - Vital Signs Vital signs: Vital Signs Temp 97.7 F 07/25/23 16:34 Pulse 88 07/25/23 16:34 Resp 17 07/25/23 16:34 BP 148/90 07/25/23 16:34 Pulse Ox 96 07/25/23 16:34 FiO2 45 07/19/23 19:40 Intake & Output 07/25/23 07/25/23 07/26/23 06:59 18:59 06:59 Intake Total 118 Output Total 600 Balance -600 118 Intake: Oral 118 Output: Urine 600 Other: Voiding Method External Catheter # Bowel Movements 1 - Constitutional General appearance: Present: average body habitus, no acute distress - EENT Eyes: Present: anicteric sclerae, EOMI ENT: Present: hearing grossly normal - Respiratory Details: breathing even and unlabored Respiratory: right: diminished, left: CTA - Cardiovascular Details: skin warm and dry Rhythm: regular Heart sounds: normal: S1, S2 - Integumentary Integumentary: Absent: cyanotic - Musculoskeletal Musculoskeletal: Present: generalized weakness - Psychiatric Psychiatric: Present: A&O x's 3, appropriate affect, intact judgment & insight - Labs CBC & Chem 7: 07/25/23 05:48 07/25/23 05:48 Labs: Abnormal Lab Results - Last 24 Hours (Table) 07/25/23 07/25/23 Range/Units 05:48 05:48 WBC 13.26 H (4.50-10.00) X 10*3/uL RBC 3.95 L (4.10-5.20) X 10*6/uL Hgb 11.7 L (12.0-15.0) d/dL MCHC 31.1 L (32.0-37.0) d/dL Plt Count 469 H (140-440) X 10*3/uL Neutrophils # 11.09 H (1.80-7.70) X 10*3/uL NRBC/100 WBC Diff 0.02 H (0.00-0.01) X 10*3/uL Potassium 3.4 L (3.5-5.5) mmol/L Carbon Dioxide 33.7 H (21.6-31.8) mmol/L Creatinine 0.4 L (0.6-1.5) mg/dL BUN/Creatinine Ratio 30.25 H (12.00-20.00) Ratio Glucose 126 H (70-110) mg/dL Calcium 8.6 L (8.7-10.3) mg/dL Assessment and Plan (1) Acute exacerbation of chronic obstructive pulmonary disease Current Visit: Yes Status: Acute Code(s): J44.1 - CHRONIC OBSTRUCTIVE PULMONARY DISEASE W (ACUTE) EXACERBATION SNOMED Code(s): 542925464 (2) Lung mass Current Visit: Yes Status: Acute Code(s): R91.8 - OTHER NONSPECIFIC ABNORMAL FINDING OF LUNG FIELD SNOMED Code(s): 041320311 (3) Small cell lung carcinoma Current Visit: Yes Status: Acute Priority: High Code(s): C34.90 - MALIGNANT NEOPLASM OF UNSP PART OF UNSP BRONCHUS OR LUNG SNOMED Code(s): 225064989 Plan: Metastatic small cell lung carcinoma: -Significant history of COPD and nicotine abuse, with 40 pack years. Progressive shortness of breath since May after being diagnosed with COVID -CTA chest revealed no acute pulmonary embolism. Poor vascularity on the right with a large right pleural effusion with compressive atelectasis at the lung bases and apparent consolidation within right upper lung field. Consideration for underlying mass. Enlarged mediastinal adenopathy. -S/p bronchoscopy with biopsy. Pathology and cytology revealing small cell carcinoma. -Rad onc consult placed. Spoke with Dr. Oneill, pt has no noted neuro deficits, will plan to await staging imaging and follow-up outpatient -MRI brain and CT AP obtained for staging. MRI brain revealed small focus, 5 mm enhancement in the left frontal lobe. No evidence for acute/subacute CVA. Nonspecific white matter changes. CT abdomen pelvis showed known changes in the visualized right lung. Possible extensive tumor infiltrating throughout the visualized right lower lobe. Pleural disease with moderate right pleural effu riya and pleural studding. Multiple hepatic metastases measuring up to 4.2 cm and mild nodular thickening of bilateral adrenal glands. Findings were reviewed with pt and that this is consistent with extensive stage small cell carcinoma -Plan is to begin inpt chemo tomorrow with [employer]. With plans to discharge to rehab and upon discharge will add immunotherapy, tecentriq to regimen. Transfer to [facility] and chemo orders placed -Tumor lysis workup ordered Plan was discussed in detail with patient and family and she is agreeable to proceed -Updated IM team on POC COPD exacerbation: -Pulm following, continues on inhalers and steroids attests: I seen and examined patient, performed H&P, developed impression and plan of care. Discussed with dictator. Agree with documentation, dictated as a scribe
[2023-07-25] MEDS: ALPRAZolam 0.25 MG TAB PO SCH (20:23)
[2023-07-26 00:06] LABS: Phosphorus 3.4 mg/dL (2.4-5.1); Uric Acid 2.8 mg/dL (2.9-7.7)
--- NOTE | 2023-07-26 05:41 | P.PN ---
Subjective Progress Note Date: 07/25/23 This is a pleasant 63 years old female with past medical history of Coronary Artery Disease s/p stenting, Heart Failure, GERD/Reflux, Hyperlipidemia, Hypertension, her PCP is Dr. Navarrete and outreach coordinator Dr. Neff for her history of coronary artery disease status post stent Patient presents because of worsening dyspnea over 3 days especially with exertion she has to stop to catch up with her breath. No significant chest pain and no significant coughing No other urinary GI symptoms. No dizziness weakness or numbness. She quit smoking about 2 months ago, lately she used to smoke 5 cigarettes per day. No alcohol or illicit drugs. She is hemodynamically stable, afebrile saturating well on 2 L oxygen via nasal cannula Labs showed mild leukocytosis of 13 and 14,000. Sodium markedly low at 1.8 and 131. ProBNP is low at 178. Troponin were unremarkable. Labs including CBC, BMP liver enzymes are unremarkable EKG showing normal sinus rhythm at 85 CT of the lung showing normal pulmonary embolism and rule out right pleural effusion with right lung consolidation suspicious for a mass. 07/16/2023 Patient is awake and alert. He is getting breathing treatments, she is mild respiratory distress while she is sitting in her chair. Her pro-calcitonin significantly elevated at 12.8. Currently she is covered with IV Zosyn and normal saline 75 mL/h. Plan for bronchoscopy tomorrow as patient is highly suspicious for lung cancer We'll give Xanax when necessary for anxiety 07/17/2023 patient has more respiratory difficulty today and she has some difficulty talking. While she was sitting in bed. She is mildly tachycardic. Heart rhythm rate 20-24, she is saturating 97% on 3 L oxygen via nasal cannula. WBC 12,000, sodium is normal at 140. Pulmonary team are planning for bronchoscopy today and possible biopsy for her right lung mass 07/18/2023 Patient seen and evaluated in follow-up maintained in the ICU was on mechanical ventilation and recently just extubated 30 minutes ago maintained on BiPAP. Patient is receiving IV hydration also maintained on Lasix and will discontinue the Lasix and monitor closely with follow-up labs and continue hydration for now. Patient's blood pressures are on the lower side as well and will hold blood pressure medications and resume as needed. Chest x-ray today shows complete opacification patient on the right with pulmonary commercial lending assistant following closely. PEEP of 6 and FiO2 is 40% on BiPAP and will continue. Patient is status post bronchoscopy and biopsies are pending at this time. Patient is afebrile and also continued on empirically Zosyn. Patient is responsive and able to follow commands and answer questions appropriately. Recommend follow-up labs in the a.m. 07/19/2023 Patient is seen and evaluated in follow-up today and continues to be in the ICU is a downgrade awaiting a Medr bed currently.patient using BiPAP intermittently as needed at night and titrating down currently on 6 L via nasal cannula. CODE STATUS was addressed with pulmonary and patient is currently no code. Patient is afebrile with no worsening shortness of breath although does continue to be quite dyspneic on exam. Patient also having some coughing spells and reports some difficulty with swallowing medications and food and will have speech evaluate with a swallow assessment. Will have PT/OT therapy evaluate the patient as well as patient is significantly weak. 07/20/2023 Patient is seen and evaluated in follow-up this morning currently sitting up in the chair has been working with physical therapy maintained on 6-8 L high flow oxygen and being weaned as tolerated. Speech at bedside to evaluate the patient and patient has significant dysphasia and almost no swallowing capability recommending nothing by mouth. Patient okay for ice chips at this point. Patient reports her breathing is about the same and has not gotten significantly worse although continues to be extremely dyspneic with minimal exertion. Patient denies any pain and denies chest pain or palpitations. Patient is afebrile white count slightly improved and patient is maintained on empiric antibiotics. Pathology remains pending and oncology along with radiation onc ology was consulted. Overall poor prognosis. 07/21/2023 Patient evaluated today sitting up in the chair. Patient remains on high flow oxygen via nasal cannula at 7L. Saturations around 98% this could probably be weaned further. Patient has been evaluation by Dr. Katz rad/onc who is pending pathology reports for further recommendations. Patient needs further improvement in her respiratory status in order to undergo MRI and PET/CT for staging. Sodium is up to 150 today. Patient will be started on D5 water. Patient continues on IV zosyn. 07/22/2023 Patient is evaluated today sitting up in chair. No acute complains. Having intermittent cough. Continues on nasal cannula at 7L. Pending pathology. Pulmonary following. Patient also remains on IV zosyn. Sodium 149 today. D5 has been discontinued. 07/23/2023 Patient is seen in follow-up today on the [facility] unit currently on 4 L via nasal cannula. Weaning FiO2 as tolerated and will evaluated for home O2. Will also ask for physical therapy to reevaluate the patient as patient has had prolonged hospitalization with weakness. Will await PT/OT therapy evaluation to see if patient will require ECF for continued strength and mobility. Patient is currently afebrile denies worsening shortness of breath. Patient has been reevaluated by speech and swallowing has significantly improved and will be started on diet. Encourage small frequent meals and monitoring for any aspiration precautions. Sodium is 150 today and will continue D5W and follow-up with repeat labs 07/24/2023 Patient is seen in follow-up this morning currently sitting up in the chair maintained on 4 L reporting improvement in her shortness of breath. Patient co ntinues with significant weakness has been evaluated by physical therapy recommending rehab and patient is agreeable. Social work following submitting for insurance authorization. Patient also being followed by oncology along with radiation oncology and pulmonary. Oncology has ordered CT abdomen and pelvis along with MRI of the brain for further staging as oncology would like to possibly initiate chemotherapy while inpatient. Patient is currently afebrile with no reports of chest pain or palpitations. Sodium levels are improving we'll continue gentle D5 and water and follow-up with repeat labs 07/25/2023 Patient seen in follow-up today and did undergo MRI of the brain along with CT of the abdomen and pelvis for further staging and there are multiple concerns of metastatic lesions including a lesion noted in the brain with oncology and radiation oncology following closely. Plan is to initiate inpatient chemotherapy. Patient and family are agreeable to proceed with this and patient is being transferred down to [address]. to undergo chemo therapy. Radiation oncology will follow as well. Patient continues on 4 L via nasal cannula and extremely weak recommending physical therapy daily. Patient reports tolerating diet. Patient continues on D5 water and sodium levels are improving we'll discontinue fluids and follow-up with repeat labs. Review of systems: Constitutional: No reports of fatigue, fever, or chills Cardiovascular: No reports of chest pain or palpitations Respiratory: reports of shortness of breath with a weak cough GI: No reports of nausea, vomiting, or diarrhea, reports improvement in swallowing and tolerating diet : No reports of dysuria or retention Neurovascular: reports of generalized weakness All medications have been reviewed Physical exam: GENERAL: The patient is asleep although easily arousable, alert and oriented x3, not in any acute distress. Well developed, well nourished. currently on 4 L via nasal cannula and has been off BiPAP HEENT: Pupils are round and equally reacting to light. EOMI. No scleral icterus. No conjunctival pallor. Normocephalic, atraumatic. No pharyngeal erythema. No thyromegaly. CARDIOVASCULAR: S1 and S2 muffled PULMONARY: Extremely Diminished breath sounds on the right otherwise Chest is clear to auscultation, no wheezing , no crackles. Coarse rhonchi noted at the bases ABDOMEN: Soft, nontender, nondistended, normoactive bowel sounds. No palpable organomegaly. MUSCULOSKELETAL: No joint swelling or deformity. EXTREMITIES: No cyanosis, clubbing, or pedal edema. NEUROLOGICAL: Gross neurological examination did not reveal any focal deficits. Diffusely weak SKIN: No rashes. no petechiae. 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 Mediastinal lymphadenopathy Possible post obstructive pneumonia is suspected Severe dysphagia status post mechanical ventilation, improved Hypernatremia likely due to poor oral intake. Improved Continued ongoing nicotine dependence History of severe COPD Hypertension Hyperlipidemia Chronic heart failure History of coronary artery disease status post stenting Obesity with BMI 32.0 GI prophylaxis DVT prophylaxis No code Plan: Patient has been weaning FiO2 as tolerated currently on 4 L via nasal cannula and will assess for home O2 as patient does not normally wear oxygen outpatient. Patient is status post a bronchoscopy had some difficulties requiring reintubation. Has since been extubated. Pathology reveals small cell carcinoma and there is a lesion noted on the brain as well as multiple metastases in the abdomen and oncology following with plans of initiating chemotherapy while inpatient. Patient is being moved to [facility]. for chemotherapy treatment Pulmonary commercial lending assistant following closely maintained on empiric antibiotics at this time along with albuterol treatments. Concerns for postobstructive pneumonia Oncology will plan for outpatient follow-up including PET scan. Rad oncology will follow-up outpatient once more stable Overall prognosis is poor and guarded at this time . Patient wishes to be no code but is agreeable to proceed with chemotherapy PT/OT therapy has evaluated the patient recommending rehab and patient is agreeable. Social work following and has submitted for insurance authorization which is pending The impression and plan of care has been dictated by Jaida Dolan, Nurse Practitioner as directed. MD Jc I have performed a history and examination and MDM of this patient, discussed the same with the dictator, and agree with the dictator's assessment and plan as written ,documented as a scribe. Based on total visit time, I have performed more than 50% of the visit. Objective - Vital Signs Vital signs: Vital Signs Temp 97.9 F 07/25/23 13:23 Pulse 71 07/25/23 13:23 Resp 17 07/25/23 13:23 BP 114/73 07/25/23 13:23 Pulse Ox 97 07/25/23 13:23 FiO2 45 07/19/23 19:40 Intake & Output 07/24/23 07/25/23 07/25/23 18:59 06:59 18:59 Intake Total 118 Output Total 400 600 Balance -400 -600 118 Intake: Oral 118 Output: Urine 400 600 Other: Voiding Method External Catheter # Bowel Movements 1 - Labs CBC & Chem 7: 07/25/23 05:48 07/25/23 05:48 Labs: Abnormal Lab Results - Last 24 Hours (Table) 07/25/23 07/25/23 Range/Units 05:48 05:48 WBC 13.26 H (4.50-10.00) X 10*3/uL RBC 3.95 L (4.10-5.20) X 10*6/uL Hgb 11.7 L (12.0-15.0) d/dL MCHC 31.1 L (32.0-37.0) d/dL Plt Count 469 H (140-440) X 10*3/uL Neutrophils # 11.09 H (1.80-7.70) X 10*3/uL NRBC/100 WBC Diff 0.02 H (0.00-0.01) X 10*3/uL Potassium 3.4 L (3.5-5.5) mmol/L Carbon Dioxide 33.7 H (21.6-31.8) mmol/L Creatinine 0.4 L (0.6-1.5) mg/dL BUN/Creatinine Ratio 30.25 H (12.00-20.00) Ratio Glucose 126 H (70-110) mg/dL Calcium 8.6 L (8.7-10.3) mg/dL
[2023-07-26] MEDS: SYMBICORT 160-4.5 MCG INHALER INHALATION SCH ×2 (07:25→20:31)
[2023-07-26] MEDS: ALBUTEROL NEBULIZED 2.5 MG/3 ML INHALATION SCH ×4 (07:25→20:31)
[2023-07-26 09:04] LABS: ALT 42 U/L (8-44); AST 49 U/L (13-35); Albumin 3.1 g/dL (3.8-4.9); Albumin/Globulin Ratio 1.11 Ratio (1.60-3.17); Alkaline Phosphatase 75 U/L (41-126); BUN/Creat Ratio 29.33 Ratio (12.00-20.00); Blood Urea Nitrogen 8.8 mg/dL (9.0-27.0); Calcium 9.3 mg/dL (8.7-10.3); Carbon Dioxide 33.9 mmol/L (21.6-31.8); Chloride 99 mmol/L (96-109); Globulin 2.8 g/dL (1.6-3.3); Glucose 98 mg/dL (70-110); Potassium 3.8 mmol/L (3.5-5.5); Sodium 142 mmol/L (135-145); Total Bilirubin 0.3 mg/dL (0.3-1.2); Total Protein 5.9 g/dL (6.2-8.2)
[2023-07-26] MEDS: predniSONE 10 MG TAB PO SCH (09:10)
[2023-07-26] MEDS: HEPARIN SODIUM,PORCINE 5,000 UNIT/ML 1 ML VIAL SQ SCH ×2 (09:11→21:17)
[2023-07-26] MEDS: carvediloL 12.5 MG TAB PO SCH ×2 (09:11→18:21)
[2023-07-26 09:17] LABS: Basophils # (A) 0.02 X 10*3/uL (0.00-0.10); Basophils % (A) 0.2 %; Eosinophils # (A) 0.02 X 10*3/uL (0.04-0.35); Eosinophils % (A) 0.2 %; HCT 38.6 % (37.2-46.3); Lymphocytes # (A) 1.05 X 10*3/uL (0.90-5.00); MCH 29.7 pg (27.0-32.0); MCHC 31.1 g/dL (32.0-37.0); MCV 95.5 FL (80.0-97.0); Mean Platelet Volume 10.1 FL (9.5-12.2); Monocytes # (A) 0.69 X 10*3/uL (0.20-1.00); Monocytes % (A) 6.6 %; NRBC Per 100 WBC 0 X 10*3/uL (0.00-0.01); Neutrophils # (A) 8.69 X 10*3/uL (1.80-7.70); Neutrophils % (A) 82.4 %; Platelet Count 435 X 10*3/uL (140-440); RBC 4.04 X 10*6/uL (4.10-5.20); RDW 13.9 % (11.5-14.5); WBC 10.53 X 10*3/uL (4.50-10.00)
[2023-07-26] MEDS ORDERED: ONDANSETRON 16 MG in SODIUM CHLORIDE 0.9% 50 ML IVPB SCH (11:00)
[2023-07-26] MEDS ORDERED: DEXAMETHASONE SOD PHOSPHATE 10 MG/ML 1 ML VIAL IV SCH (11:00)
[2023-07-26] MEDS ORDERED: FAMOTIDINE 20 MG/2 ML VIAL IV SCH (11:00)
[2023-07-26] MEDS ORDERED: SODIUM CHLORIDE 0.9% IV ONE (12:00)
[2023-07-26] MEDS ORDERED: CARBOPLATIN IV ONE (12:00)
--- NOTE | 2023-07-26 12:06 | P.PN ---
Subjective Progress Note Date: 07/26/23 This is a 63-year-old female patient, a chronic smoker started age of 18 and she quit smoking approximately 2 months ago. She presented emergency department was a 3 days history of shortness of breath. CAT scan of the chest was done in the emergency department and the patient was found to have extensive mediastinal lymphadenopathy and this is present in the right paratracheal area, right hilum, subcarinal area and the patient has mass effect with significant narrowing of the distal right main stem bronchus and bronchus intermedius and airways completely occluded past the distal right main stem. As such, the patient has extensive atelectatic changes in the right middle lobe and the right lower lobe with a small right-sided pleural effusion. Presentation is highly suspicious for small cell lung cancer. No evidence of any pulmonary embolism. The patient has of the discomfort of 14.2, sodium is at 131 initially at 128 probably related to SIADH. Troponins are negative. Pro-calcitonin level is at 12.8. She is afebrile. Hemodynamically stable. Pulse ox is 95% liters of oxygen by nasal cannula. No hemoptysis. 20 pounds weight loss. The patient is seen today 07/16/2023 in follow-up on the regular medical floor. She is awake and alert in no acute distress. She is maintaining good O2 saturations in the mid 90s on 2 L/m per nasal cannula. She's afebrile. Hemodynamically stable. No new labs today. She is continued on Zosyn. Heparin for DVT prophylaxis. Normal saline at 75 ML's per hour. Based on the above mentioned computed tomography scan findings we will plan for bronchoscopy and probable biopsies tomorrow. The patient is seen today 07/17/2023 in follow-up on the regular medical floor. She is currently sitting up in a chair at the bedside. Awake and alert in no acute distress. She is maintaining O2 saturations in the 90s on 3 L/m per nasal cannula. She's been afebrile. Hemodynamically stable. Blood cultures reveal no growth. White count 12.8. Hemoglobin 11.3. Platelets 517. Sodium 140. Potassium 4.1. Bicarb 28. BUN 17. Creatinine 0.6. Glucose 104. Remains on antibiotics in form of Zosyn. Plan is for bronchoscopy with biopsies today 07/17/23 Patient underwent bronchoscopy and there was evidence of complete obstruction of the right mainstem bronchus and right upper lobe bronchus, there was evidence of endobronchial tumor, cauliflower-shaped tumor involving the enrike, right upper lobe bronchus, right mainstem bronchus, and there was no visualization of the right upper lobe or right middle lobe or right lower lobe. Procedure was done, patient underwent multiple biopsies of the endobronchial tumor, brushings were done, au needle aspiration of 4R lymph node done. The procedure was well- tolerated, however the patient was extubated in the recovery room, however she had to be reintubated because she was acting confused and her O2 saturations were running low. Patient was placed back on mechanical ventilation with assist control rate of 24, tidal volume to 50, FiO2 on the percent, PEEP of 5. Patient will be transferred to the ICU, she would be kept on mechanical ventilation tonight, and will likely address weaning and extubation to BiPAP in the next 24 hours. Patient does have significant underlying COPD and I believe extubating the patient to BiPAP would be reasonable. In the meantime we will support the patient on mechanical ventilation, and we will address weaning and extubation in the next 24 hours. Patient was reevaluated today on 07/18/23, patient underwent bronchoscopy and multiple endobronchial biopsies of a large tumor completely occluding the right mainstem bronchus, right upper lobe, and she had to transfer enrike needle aspiration of lymph nodes. Patient was extubated after the procedure however she did not tolerate the extubation and she had to be reintubated by [employer]. Patient was admitted to the ICU overnight, and I'm seeing her today, patient remains intubated and mechanically ventilated. She is on assist control rate of 26 tidal volume to 50 FiO2 45% and PEEP of 5 ABG showed a pO2 of 79 pCO2 50 pH of 7.40. Chest x-ray continues to show complete opacification of the right lung, left lung seems to be relatively clear. Patient is on propofol at 35 mcg/kg/m she is also on IV fluid at 100 mL per hour. After evaluating the patient, I recommended stopping propofol, patient was given a trial of pressure support of 12 and CPAP, and she was tolerating the weaning well. And I extub ated the patient to BiPAP, 12//40%, and I will follow along next to the patient evaluating her pulmonary status during this transition from mechanical ventilation to BiPAP. Patient seemed to do better on BiPAP, hence we'll keep her on BiPAP today, and we will continue bronchodilators, we will continue her IV fluids, and awaiting final pathology from her recent endobronchial biopsies. Overall prognosis considering the findings on the bronchoscopy yesterday, is extremely poor She was seen and examined today on 07/19/23, patient remains in the ICU, she was extubated yesterday successfully, presently on nasal cannula at 8 L/m, however she was on BiPAP at night 12/6/45%. O2 saturations in the mid 90s I cut her down to 5 L nasal cannula, patient did not sleep well last night. IV fluid is c ut down to KVO, patient is eating and drinking pathology from the bronchoscopy is still pending however in the meantime I'm recommending consultation with oncology and with radiation oncology. Chest x-ray continues to show complete opacification of the right hemithorax. No infiltrate in the left lung. WBC count is 15.7 hemoglobin is 11.1, basic metabolic profile is normal, renal profile is normal Patient was seen and examined today on 07/20/23, patient remains in the ICU, she is supposedly overflow, but overnight she developed worsening shortness of breath and she had to be placed on BiPAP, she remains on BiPAP this morning. She is on 12/6/45%, remains on Zosyn, remains on bronchodilators, and today I went ahead and added Decadron. Patient was seen by oncology, and again we are waiting for the tissue diagnosis/biopsy. Overall clinical picture does not look very promising, patient is marginal at best. And I did discuss the CODE STATUS with the patient yesterday, and she definitely wants to be DO NOT RESUSCITATE CODE STATUS. I will try to reach her son Christophe sometime later today and discussed her condition with him also. WBC count is 14.1 hemoglobin is 10.8, basic metabolic profile is normal sodium is up to 145. And renal profile is normal The patient is seen today 07/21/2023 in follow-up on the regular medical floor. Awake and alert in no acute distress. She is currently sitting up in a chair at the bedside. She is having difficulty breathing when lying in bed. She is maintaining O2 saturations in the 90s on 7 L high flow nasal cannula. She currently denies any worsening shortness of breath, cough or congestion. She denies any pain. Her family is at the bedside. Blood cultures revealed no growth. Bronchial wash cultures reveal no growth. Pathology is pending from biopsies. White count 13.8. Hemoglobin 11.1. Platelets 512. Sodium 130. Potassium 4.0. Bicarb 35. BUN 23. Creatinine 0.42. She remains on Symbicort, albuterol, Decadron. Heparin for DVT prophylaxis. Normal saline at [facility]. Antibiotics in the form of Zosyn. The patient is seen today 07/22/2023 in follow-up on the regular medical floor. She is sitting up in a chair. Awake and alert in no acute distress. Denies any worsening shortness of breath, cough or congestion. She is still on 7 high flow liters high flow nasal cannula to maintain O2 saturations in the 90s. Blood cultures revealed no growth. Bronchial wash cultures revealed no growth. Pathology still pending. White count 12.4. Hemoglobin 11.2. Platelets 539. Sodium 149. Potassium 3.9. Bicarb 35. BUN 23. Creatinine 0.44. Glucose 103. She is continued on Symbicort, albuterol, Decadron. Antibiotics in the form of Zosyn. The patient is seen today 07/23/2023 in follow-up on the regular medical floor. She is awake and alert in no acute distress. She is maintaining O2 saturations in the 90s on 5 L high flow nasal cannula. She denies any worsening shortness of breath, cough or congestion. Her oxygenation continues to improve. She may require home oxygen. Blood cultures revealed no growth. Bronchial wash cultures revealed no growth. Sodium 151. Potassium 3.9. Bicarb 36. BUN 20. Creatinine 0.4. She completed a course of antibiotics. She is on heparin for DVT prophylaxis. Continue on Symbicort and albuterol. Continued on a prednisone taper. The patient is seen today 07/24/2023 in follow-up on the regular medical floor. She is sitting up in a chair. Awake and alert in no acute distress. She is down to 4 L high flow nasal cannula maintaining O2 saturations in the 90s. She does desaturate to 88% and a brief walk on room air. Blood cultures revealed no growth. Bronchial wash cultures revealed no growth. Her lung biopsies did come back positive for small cell carcinoma. She is continued on Symbicort, albuterol, prednisone. Heparin for DVT prophylaxis. D5W at 75 ML's per hour. The patient is seen today 07/25/2023 in follow-up on the regular medical floor. She is awake and alert in no acute distress. Sitting up in a chair at the bedside. She is maintaining O2 saturations in the 90s on 4 L/m per nasal cannula. She is continued on Symbicort, prednisone and albuterol. Heparin for DVT prophylaxis. Prednisone taper. MRI of the brain revealed a small focus of enhancement in the left frontal lobe concerning for metastatic disease. No evidence of acute/subacute CVA. Nonspecific white matter changes. DT scan of the abdomen and pelvis revealed markedly generalized anasarca. No changes in the visualized right lung. Also extensive tumor infiltrating throughout the visualized right lower lobe. Pleural disease with moderate right pleural effus ion and pleural studding. Multiple hepatic metastases measuring up to 4.2 cm. Mild nodular thickening of the bilateral adrenal glands also suspicious. White count 13.2. Hemoglobin 11.7. Platelets 469. Sodium 141. Potassium 3.4. Bicarb 34. BUN 12. Creatinine 0.4. Glucose 126. The patient is seen today 08/05/2023 in follow-up on the regular medical floor. She is sitting up in a chair. Awake and alert in no acute distress. Maintaining O2 saturations in the 90s on 4 L/m per nasal cannula. No IV fluids. She denies any worsening shortness of breath, cough or congestion. White count 10.5. Hemoglobin 12.0. Platelets 435. Sodium 142. Potassium 3.8. Bicarb 34. BUN 8.8. Creatinine 0.3. Glucose 98. AST 49. ALT 42. She is continued on Symbicort and albuterol. Heparin for DVT prophylaxis. Initiated on Decadron 10 mg IV every 24 hours today. She will will be starting carboplatin and etoposide today per oncology. Objective - Vital Signs Vital signs: Vital Signs Temp 97.6 F 07/26/23 07:10 Pulse 80 07/26/23 11:14 Resp 16 07/26/23 07:10 BP 115/70 07/26/23 07:10 Pulse Ox 98 07/26/23 07:10 FiO2 45 07/19/23 19:40 Intake & Output 07/25/23 07/26/23 07/26/23 18:59 06:59 18:59 Intake Total 118 Output Total 800 Balance 118 -800 Intake: Oral 118 Output: Urine 800 Other: Voiding Method External Catheter - Exam GENERAL EXAM: Alert, weak, pleasant 63-year-old female, up in a chair, on 4 L nasal cannula, in no apparent distress. HEAD: Normocephalic. EYES: Normal reaction of pupils, equal size. NOSE: Clear with pink turbinates. THROAT: No erythema or exudates. NECK: No masses, no JVD. CHEST: No chest wall deformity. LUNGS: Equal air entry with diminished breath sounds throughout the right lung. Left lung is clear. CVS: S1 and S2 normal with no audible murmur, regular rhythm. ABDOMEN: No hepatosplenomegaly, normal bowel sounds, no guarding or rigidity. SPINE: No scoliosis or deformity SKIN: No rashes CENTRAL NERVOUS SYSTEM: No focal deficits, tone is normal in all 4 extremities. EXTREMITIES: There is no peripheral edema. No clubbing, no cyanosis. Peripheral pulses are intact. - Labs CBC & Chem 7: 07/26/23 05:54 07/26/23 05:54 Labs: Abnormal Lab Results - Last 24 Hours (Table) 07/25/23 07/26/23 07/26/23 Range/Units 05:48 05:54 05:54 WBC 10.53 H (4.50-10.00) X 10*3/uL RBC 4.04 L (4.10-5.20) X 10*6/uL MCHC 31.1 L (32.0-37.0) g/dL Neutrophils # 8.69 H (1.80-7.70) X 10*3/uL Eosinophils # 0.02 L (0.04-0.35) X 10*3/uL Carbon Dioxide 33.9 H (21.6-31.8) mmol/L BUN 8.8 L (9.0-27.0) mg/dL Creatinine 0.3 L (0.6-1.5) mg/dL BUN/Creatinine Ratio 29.33 H (12.00-20.00) Ratio Uric Acid 2.8 L (2.9-7.7) mg/dL AST 49 H (13-35) U/L Lactate Dehydrogenase 439 H (120-246) U/L Total Protein 5.9 L (6.2-8.2) g/dL Albumin 3.1 L (3.8-4.9) g/dL Albumin/Globulin Ratio 1.11 L (1.60-3.17) Ratio Assessment and Plan Assessment: Acute hypoxic and hypercapnic respiratory failure related to her underlying COPD, also related to her underlying lung mass and significant opacification of the right lung secondary to lung mass, and also related to her hilar adenopathy. This is all consistent with COPD and underlying bronchogenic carcinoma most likely squamous cell lung cancer. Bronchoscopy with biopsies performed on 07/17/2023. Pathology is positive for small cell carcinoma. MRI of the brain revealed a small focus of enhancement in the left frontal lobe concerning for metastatic disease. No evidence of acute/subacute CVA. Nonspecific white m atter changes. DT scan of the abdomen and pelvis revealed markedly generalized anasarca. No changes in the visualized right lung. Also extensive tumor infiltrating throughout the visualized right lower lobe. Pleural disease with moderate right pleural effusion and pleural studding. Multiple hepatic metastases measuring up to 4.2 cm. Mild nodular thickening of the bilateral adrenal glands also suspicious. To be initiated on carboplatin/etoposide today 09/04/2023. Initiated on Decadron 10 mg IV daily. Hypernatremia, sodium 149 following previous hyponatremia corrected Postobstructive pneumonia involving the right lung area, currently on Zosyn Chronic and ongoing tobacco dependence Coronary artery disease, prior stenting of the LAD Hypertension Hyperlipidemia Plan: The patient was seen and evaluated Medications and labs reviewed To be initiated on carboplatin/etoposide today Initiated on Decadron 10 mg IV daily Continue Symbicort, albuterol Titrate the FiO2 as tolerated We will continue to follow This patient was seen independently by the nurse practitioner I have personally seen and examined the patient, performed the documentation and the assessment and plan as written. Number of minutes spent on the visit: 24.
[2023-07-26] MEDS: FAMOTIDINE 20 MG/2 ML VIAL IV SCH (13:58)
[2023-07-26] MEDS: ONDANSETRON 16 MG in SODIUM CHLORIDE 0.9% 50 ML IVPB SCH (13:59)
[2023-07-26] MEDS: DEXAMETHASONE SOD PHOSPHATE 10 MG/ML 1 ML VIAL IV SCH (13:59)
[2023-07-26] MEDS ORDERED: CARBOplatin 500 MG in SODIUM CHLORIDE 0.9% 250 ML IV ONE (15:00)
[2023-07-26] MEDS: ETOPOSIDE 180 MG in SODIUM CHLORIDE 0.9% 500 ML 500 ML IV SCH (15:06)
--- NOTE | 2023-07-26 16:41 | P.PN ---
Subjective Progress Note Date: 07/26/23 Principal diagnosis: lung mass, SCLC At today's visit patient is resting comfortably in bedside chair. Patient is reporting improvement in breathing/SOB. Pt will be starting inpt chemo today with Carbo/[employer] ENGINEER Objective - Vital Signs Vital signs: Vital Signs Temp 97.9 F 07/26/23 15:08 Pulse 88 07/26/23 15:08 Resp 18 07/26/23 15:08 BP 112/71 07/26/23 15:08 Pulse Ox 94 L 07/26/23 15:08 FiO2 45 07/19/23 19:40 Intake & Output 07/25/23 07/26/23 07/26/23 18:59 06:59 18:59 Intake Total 118 Output Total 1500 Balance 118 -1500 Intake: Oral 118 Output: Urine 1500 Other: Voiding Method External Catheter External Catheter - Constitutional General appearance: Present: no acute distress - EENT Eyes: Present: anicteric sclerae, EOMI ENT: Present: hearing grossly normal - Respiratory Details: breathing is even and unlabored - Cardiovascular Details: skin warm and dry - Integumentary Integumentary: Absent: cyanotic - Neurologic Neurologic Comment(s): grossly intact - Musculoskeletal Musculoskeletal: Present: strength equal bilaterally - Psychiatric Psychiatric: Present: A&O x's 3, appropriate affect, intact judgment & insight - Labs CBC & Chem 7: 07/26/23 05:54 07/26/23 05:54 Labs: Abnormal Lab Results - Last 24 Hours (Table) 07/25/23 07/26/23 07/26/23 Range/Units 05:48 05:54 05:54 WBC 10.53 H (4.50-10.00) X 10*3/uL RBC 4.04 L (4.10-5.20) X 10*6/uL MCHC 31.1 L (32.0-37.0) g/dL Neutrophils # 8.69 H (1.80-7.70) X 10*3/uL Eosinophils # 0.02 L (0.04-0.35) X 10*3/uL Carbon Dioxide 33.9 H (21.6-31.8) mmol/L BUN 8.8 L (9.0-27.0) mg/dL Creatinine 0.3 L (0.6-1.5) mg/dL BUN/Creatinine Ratio 29.33 H (12.00-20.00) Ratio Uric Acid 2.8 L (2.9-7.7) mg/dL AST 49 H (13-35) U/L Lactate Dehydrogenase 439 H (120-246) U/L Total Protein 5.9 L (6.2-8.2) g/dL Albumin 3.1 L (3.8-4.9) g/dL Albumin/Globulin Ratio 1.11 L (1.60-3.17) Ratio Assessment and Plan (1) Acute exacerbation of chronic obstructive pulmonary disease Current Visit: Yes Status: Acute Code(s): J44.1 - CHRONIC OBSTRUCTIVE PULMONARY DISEASE W (ACUTE) EXACERBATION SNOMED Code(s): 882343562 (2) Lung mass Current Visit: Yes Status: Acute Code(s): R91.8 - OTHER NONSPECIFIC ABNORMAL FINDING OF LUNG FIELD SNOMED Code(s): 750945605 (3) Small cell lung carcinoma Current Visit: Yes Status: Acute Priority: High Code(s): C34.90 - MALIGNANT NEOPLASM OF UNSP PART OF UNSP BRONCHUS OR LUNG SNOMED Code(s): 960347761 Plan: Metastatic small cell lung carcinoma: -Significant history of COPD and nicotine abuse, with 40 pack years. Progressive shortness of breath since May after being diagnosed with COVID -CTA chest revealed no acute pulmonary embolism. Poor vascularity on the right with a large right pleural effusion with compressive atelectasis at the lung bases and apparent consolidation within right upper lung field. Consideration for underlying mass. Enlarged mediastinal adenopathy. -S/p bronchoscopy with biopsy. Pathology and cytology revealing small cell carcinoma. -Rad onc consult placed. Spoke with Dr. Oneill, pt has no noted neuro deficits, will plan to await staging imaging and follow-up outpatient -MRI brain and CT AP obtained for staging. MRI brain revealed small focus, 5 mm enhancement in the left frontal lobe. No evidence for acute/subacute CVA. Nonspecific white matter changes. CT abdomen pelvis showed known changes in the visualized right lung. Possible extensive tumor infiltrating throughout the visualized right lower lobe. Pleural disease with moderate right pleural effusion and pleural studding. Multiple hepatic metastases measuring up to 4.2 cm and mild nodular thickening of bilateral adrenal glands. Findings were reviewed with pt and that this is consistent with extensive stage small cell carcinoma -Day 1 of Carbo/[employer]CALATION ENGINEER scheduled for today. With plans to discharge to rehab and upon discharge will add immunotherapy, tecentriq to regimen. -Tumor lysis workup negative, will continue to monitor -CBC/CMP daily Plan was discussed in detail with patient and family COPD exacerbation: -Pulm following, continues on inhalers and steroids
[2023-07-26] MEDS: SODIUM CHLORIDE 0.9% 1,000 ML IV SCH (18:05)
--- NOTE | 2023-07-26 18:47 | P.PN ---
Subjective Progress Note Date: 07/26/23 This is a pleasant 63 years old female with past medical history of Coronary Artery Disease s/p stenting, Heart Failure, GERD/Reflux, Hyperlipidemia, Hypertension, her PCP is Dr. Navarrete and knitted goods shaper Dr. Neff for her history of coronary artery disease status post stent Patient presents because of worsening dyspnea over 3 days especially with exertion she has to stop to catch up with her breath. No significant chest pain and no significant coughing No other urinary GI symptoms. No dizziness weakness or numbness. She quit smoking about 2 months ago, lately she used to smoke 5 cigarettes per day. No alcohol or illicit drugs. She is hemodynamically stable, afebrile saturating well on 2 L oxygen via nasal cannula Labs showed mild leukocytosis of 13 and 14,000. Sodium markedly low at 1.8 and 131. ProBNP is low at 178. Troponin were unremarkable. Labs including CBC, BMP liver enzymes are unremarkable EKG showing normal sinus rhythm at 85 CT of the lung showing normal pulmonary embolism and rule out right pleural effusion with right lung consolidation suspicious for a mass. 07/16/2023 Patient is awake and alert. He is getting breathing treatments, she is mild respiratory distress while she is sitting in her chair. Her pro-calcitonin significantly elevated at 12.8. Currently she is covered with IV Zosyn and normal saline 75 mL/h. Plan for bronchoscopy tomorrow as patient is highly suspicious for lung cancer We'll give Xanax when necessary for anxiety 07/17/2023 patient has more respiratory difficulty today and she has some difficulty talking. While she was sitting in bed. She is mildly tachycardic. Heart rhythm rate 20-24, she is saturating 97% on 3 L oxygen via nasal cannula. WBC 12,000, sodium is normal at 140. Pulmonary team are planning for bronchoscopy today and possible biopsy for her right lung mass 07/18/2023 Patient seen and evaluated in follow-up maintained in the ICU was on mechanical ventilation and recently just extubated 30 minutes ago maintained on BiPAP. Patient is receiving IV hydration also maintained on Lasix and will discontinue the Lasix and monitor closely with follow-up labs and continue hydration for now. Patient's blood pressures are on the lower side as well and will hold blood pressure medications and resume as needed. Chest x-ray today shows complete opacification patient on the right with pulmonary warehouse production worker following closely. PEEP of 6 and FiO2 is 40% on BiPAP and will continue. Patient is status post bronchoscopy and biopsies are pending at this time. Patient is afebrile and also continued on empirically Zosyn. Patient is responsive and able to follow commands and answer questions appropriately. Recommend follow-up labs in the a.m. 07/19/2023 Patient is seen and evaluated in follow-up today and continues to be in the ICU is a downgrade awaiting a Medr bed currently.patient using BiPAP intermittently as needed at night and titrating down currently on 6 L via nasal cannula. CODE STATUS was addressed with pulmonary and patient is currently no code. Patient is afebrile with no worsening shortness of breath although does continue to be quite dyspneic on exam. Patient also having some coughing spells and reports some difficulty with swallowing medications and food and will have speech evaluate with a swallow assessment. Will have PT/OT therapy evaluate the patient as well as patient is significantly weak. 07/20/2023 Patient is seen and evaluated in follow-up this morning currently sitting up in the chair has been working with physical therapy maintained on 6-8 L high flow oxygen and being weaned as tolerated. Speech at bedside to evaluate the patient and patient has significant dysphasia and almost no swallowing capability recommending nothing by mouth. Patient okay for ice chips at this point. Patient reports her breathing is about the same and has not gotten significantly worse although continues to be extremely dyspneic with minimal exertion. Patient denies any pain and denies chest pain or palpitations. Patient is afebrile white count slightly improved and patient is maintained on empiric antibiotics. Pathology remains pending and oncology along with radiation onc ology was consulted. Overall poor prognosis. 07/21/2023 Patient evaluated today sitting up in the chair. Patient remains on high flow oxygen via nasal cannula at 7L. Saturations around 98% this could probably be weaned further. Patient has been evaluation by Dr. Katz rad/onc who is pending pathology reports for further recommendations. Patient needs further improvement in her respiratory status in order to undergo MRI and PET/CT for staging. Sodium is up to 150 today. Patient will be started on D5 water. Patient continues on IV zosyn. 07/22/2023 Patient is evaluated today sitting up in chair. No acute complains. Having intermittent cough. Continues on nasal cannula at 7L. Pending pathology. Pulmonary following. Patient also remains on IV zosyn. Sodium 149 today. D5 has been discontinued. 07/23/2023 Patient is seen in follow-up today on the [facility] unit currently on 4 L via nasal cannula. Weaning FiO2 as tolerated and will evaluated for home O2. Will also ask for physical therapy to reevaluate the patient as patient has had prolonged hospitalization with weakness. Will await PT/OT therapy evaluation to see if patient will require ECF for continued strength and mobility. Patient is currently afebrile denies worsening shortness of breath. Patient has been reevaluated by speech and swallowing has significantly improved and will be started on diet. Encourage small frequent meals and monitoring for any aspiration precautions. Sodium is 150 today and will continue D5W and follow-up with repeat labs 07/24/2023 Patient is seen in follow-up this morning currently sitting up in the chair maintained on 4 L reporting improvement in her shortness of breath. Patient co ntinues with significant weakness has been evaluated by physical therapy recommending rehab and patient is agreeable. Social work following submitting for insurance authorization. Patient also being followed by oncology along with radiation oncology and pulmonary. Oncology has ordered CT abdomen and pelvis along with MRI of the brain for further staging as oncology would like to possibly initiate chemotherapy while inpatient. Patient is currently afebrile with no reports of chest pain or palpitations. Sodium levels are improving we'll continue gentle D5 and water and follow-up with repeat labs 07/25/2023 Patient seen in follow-up today and did undergo MRI of the brain along with CT of the abdomen and pelvis for further staging and there are multiple concerns of metastatic lesions including a lesion noted in the brain with oncology and radiation oncology following closely. Plan is to initiate inpatient chemotherapy. Patient and family are agreeable to proceed with this and patient is being transferred down to 5 [address]. to undergo chemo therapy. Radiation oncology will follow as well. Patient continues on 4 L via nasal cannula and extremely weak recommending physical therapy daily. Patient reports tolerating diet. Patient continues on D5 water and sodium levels are improving we'll discontinue fluids and follow-up with repeat labs. 07/26/2023 Patient seen and evaluated in follow-up today currently scheduled to undergo chemotherapy initiation today. Patient with no significant worsening shortness of breath and reports feeling somewhat improved today. Patient denies any pain and denies nausea or vomiting and has been tolerating diet. Patient encouraged to increase activity as tolerated and continue working with physical therapy daily as well as increased oral intake. We'll follow up on repeat labs and continue to monitor closely Review of systems: Constitutional: No reports of fatigue, fever, or chills Cardiovascular: No reports of chest pain or palpitations Respiratory: No reports of worsening shortness of breath, continues with a weak cough GI: No reports of nausea, vomiting, or diarrhea, reports improvement in swallowing and tolerating diet : No reports of dysuria or retention Neurovascular: reports of generalized weakness All medications have been reviewed Physical exam: GENERAL: The patient is awake, alert and oriented x3, not in any acute distress. Well developed, well nourished. currently on 4 L via nasal cannula and has been off BiPAP HEENT: Pupils are round and equally reacting to light. EOMI. No scleral icterus. No conjunctival pallor. Normocephalic, atraumatic. No pharyngeal erythema. No thyromegaly. CARDIOVASCULAR: S1 and S2 muffled PULMONARY: Extremely Diminished breath sounds on the right otherwise Chest is clear to auscultation, no wheezing , no crackles. Coarse rhonchi noted at the bases ABDOMEN: Soft, nontender, nondistended, normoactive bowel sounds. No palpable organomegaly. MUSCULOSKELETAL: No joint swelling or deformity. EXTREMITIES: No cyanosis, clubbing, or pedal edema. NEUROLOGICAL: Gross neurological examination did not reveal any focal deficits. Diffusely weak SKIN: No rashes. no petechiae. 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 Mediastinal lymphadenopathy Possible post obstructive pneumonia is suspected Severe dysphagia status post mechanical ventilation, improved Hypernatremia likely due to poor oral intake. Improved Continued ongoing nicotine dependence History of severe COPD Hypertension Hyperlipidemia Chronic heart failure History of coronary artery disease status post stenting Obesity with BMI 32.0 GI prophylaxis DVT prophylaxis No code Plan: Patient has been weaning FiO2 as tolerated currently on 4 L via nasal cannula and will assess for home O2 as patient does not normally wear oxygen outpatient. Patient is status post a bronchoscopy had some difficulties requiring reintubation. Has since been extubated. Pathology revealed small cell carcinoma and there is a lesion noted on the brain as well as multiple metastases in the abdomen and oncology following the patient is being started on chemotherapy today Labs reviewed within normal limits and will follow-up on repeat labs. Recommend replace electrolytes per protocol. Pulmonary warehouse production worker following Oncology will plan for outpatient follow-up including PET scan. Rad oncology will follow-up outpatient once more stable Overall prognosis is poor and guarded at this time . Patient wishes to be no code but is agreeable to proceed with chemotherapy Recommend PT/OT therapy daily as patient is significantly weak and has had prolonged hospitalization. Patient will require rehab on discharge. Case management/social work following and patient will require insurance authorization to [facility]. The impression and plan of care has been dictated by Jaida Dolan, Nurse Practitioner as directed. MD Jc I have performed a history and examination and MDM of this patient, discussed the same with the dictator, and agree with the dictator's assessment and plan as written ,documented as a scribe. Based on total visit time, I have performed more than 50% of the visit. Objective - Vital Signs Vital signs: Vital Signs Temp 98.5 F 07/26/23 18:05 Pulse 91 07/26/23 18:05 Resp 16 07/26/23 16:54 BP 121/73 07/26/23 18:05 Pulse Ox 95 07/26/23 18:05 FiO2 45 07/19/23 19:40 Intake & Output 07/25/23 07/26/23 07/26/23 18:59 06:59 18:59 Intake Total 118 Output Total 1500 Balance 118 -1500 Intake: Oral 118 Output: Urine 1500 Other: Voiding Method External Catheter External Catheter - Labs CBC & Chem 7: 07/26/23 05:54 07/26/23 05:54 Labs: Abnormal Lab Results - Last 24 Hours (Table) 07/25/23 07/26/23 07/26/23 Range/Units 05:48 05:54 05:54 WBC 10.53 H (4.50-10.00) X 10*3/uL RBC 4.04 L (4.10-5.20) X 10*6/uL MCHC 31.1 L (32.0-37.0) g/dL Neutrophils # 8.69 H (1.80-7.70) X 10*3/uL Eosinophils # 0.02 L (0.04-0.35) X 10*3/uL Carbon Dioxide 33.9 H (21.6-31.8) mmol/L BUN 8.8 L (9.0-27.0) mg/dL Creatinine 0.3 L (0.6-1.5) mg/dL BUN/Creatinine Ratio 29.33 H (12.00-20.00) Ratio Uric Acid 2.8 L (2.9-7.7) mg/dL AST 49 H (13-35) U/L Lactate Dehydrogenase 439 H (120-246) U/L Total Protein 5.9 L (6.2-8.2) g/dL Albumin 3.1 L (3.8-4.9) g/dL Albumin/Globulin Ratio 1.11 L (1.60-3.17) Ratio
[2023-07-26] MEDS: ALPRAZolam 0.25 MG TAB PO SCH (21:17)
[2023-07-27] MEDS: SODIUM CHLORIDE 0.9% 1,000 ML IV SCH ×2 (04:18→14:11)
[2023-07-27] MEDS: SYMBICORT 160-4.5 MCG INHALER INHALATION SCH ×2 (07:48→19:29)
[2023-07-27] MEDS: ALBUTEROL NEBULIZED 2.5 MG/3 ML INHALATION SCH ×4 (07:48→19:29)
[2023-07-27] MEDS: carvediloL 12.5 MG TAB PO SCH ×2 (08:56→17:44)
[2023-07-27] MEDS: HEPARIN SODIUM,PORCINE 5,000 UNIT/ML 1 ML VIAL SQ SCH ×2 (08:56→20:59)
[2023-07-27 09:07] LABS: LDH 408 U/L (120-246); Phosphorus 4.1 mg/dL (2.4-5.1)
[2023-07-27 09:08] LABS: Uric Acid 3.7 mg/dL (2.9-7.7)
[2023-07-27 09:26] LABS: ALT 58 U/L (8-44); AST 57 U/L (13-35); Albumin 3.2 g/dL (3.8-4.9); Albumin/Globulin Ratio 1.14 Ratio (1.60-3.17); Alkaline Phosphatase 80 U/L (41-126); Blood Urea Nitrogen 14.2 mg/dL (9.0-27.0); Carbon Dioxide 31.8 mmol/L (21.6-31.8); Chloride 101 mmol/L (96-109); Globulin 2.8 g/dL (1.6-3.3); Glucose 125 mg/dL (70-110); Potassium 4.4 mmol/L (3.5-5.5); Sodium 143 mmol/L (135-145); Total Bilirubin 0.3 mg/dL (0.3-1.2)
[2023-07-27 09:36] LABS: Basophils # (A) 0.01 X 10*3/uL (0.00-0.10); Basophils % (A) 0.1 %; Eosinophils # (A) 0 X 10*3/uL (0.04-0.35); Eosinophils % (A) 0 %; HGB 11.7 g/dL (12.0-15.0); Lymphocytes # (A) 0.47 X 10*3/uL (0.90-5.00); MCH 29.6 pg (27.0-32.0); MCHC 30.8 g/dL (32.0-37.0); MCV 96.2 FL (80.0-97.0); Monocytes % (A) 3.2 %; NRBC Per 100 WBC 0 X 10*3/uL (0.00-0.01); Neutrophils # (A) 14.78 X 10*3/uL (1.80-7.70); Neutrophils % (A) 93.3 %; Platelet Count 389 X 10*3/uL (140-440); RBC 3.95 X 10*6/uL (4.10-5.20); RDW 13.9 % (11.5-14.5); WBC 15.83 X 10*3/uL (4.50-10.00)
--- NOTE | 2023-07-27 11:14 | P.PN ---
Subjective Progress Note Date: 07/27/23 This is a 63-year-old female patient, a chronic smoker started age of 18 and she quit smoking approximately 2 months ago. She presented emergency department was a 3 days history of shortness of breath. CAT scan of the chest was done in the emergency department and the patient was found to have extensive mediastinal lymphadenopathy and this is present in the right paratracheal area, right hilum, subcarinal area and the patient has mass effect with significant narrowing of the distal right main stem bronchus and bronchus intermedius and airways completely occluded past the distal right main stem. As such, the patient has extensive atelectatic changes in the right middle lobe and the right lower lobe with a small right-sided pleural effusion. Presentation is highly suspicious for small cell lung cancer. No evidence of any pulmonary embolism. The patient has of the discomfort of 14.2, sodium is at 131 initially at 128 probably related to SIADH. Troponins are negative. Pro-calcitonin level is at 12.8. She is afebrile. Hemodynamically stable. Pulse ox is 95% liters of oxygen by nasal cannula. No hemoptysis. 20 pounds weight loss. The patient is seen today 07/16/2023 in follow-up on the regular medical floor. She is awake and alert in no acute distress. She is maintaining good O2 saturations in the mid 90s on 2 L/m per nasal cannula. She's afebrile. Hemodynamically stable. No new labs today. She is continued on Zosyn. Heparin for DVT prophylaxis. Normal saline at 75 ML's per hour. Based on the above mentioned computed tomography scan findings we will plan for bronchoscopy and probable biopsies tomorrow. The patient is seen today 07/17/2023 in follow-up on the regular medical floor. She is currently sitting up in a chair at the bedside. Awake and alert in no acute distress. She is maintaining O2 saturations in the 90s on 3 L/m per nasal cannula. She's been afebrile. Hemodynamically stable. Blood cultures reveal no growth. White count 12.8. Hemoglobin 11.3. Platelets 517. Sodium 140. Potassium 4.1. Bicarb 28. BUN 17. Creatinine 0.6. Glucose 104. Remains on antibiotics in form of Zosyn. Plan is for bronchoscopy with biopsies today 07/17/23 Patient underwent bronchoscopy and there was evidence of complete obstruction of the right mainstem bronchus and right upper lobe bronchus, there was evidence of endobronchial tumor, cauliflower-shaped tumor involving the enrike, right upper lobe bronchus, right mainstem bronchus, and there was no visualization of the right upper lobe or right middle lobe or right lower lobe. Procedure was done, patient underwent multiple biopsies of the endobronchial tumor, brushings were done, au needle aspiration of 4R lymph node done. The procedure was well- tolerated, however the patient was extubated in the recovery room, however she had to be reintubated because she was acting confused and her O2 saturations were running low. Patient was placed back on mechanical ventilation with assist control rate of 24, tidal volume to 50, FiO2 on the percent, PEEP of 5. Patient will be transferred to the ICU, she would be kept on mechanical ventilation tonight, and will likely address weaning and extubation to BiPAP in the next 24 hours. Patient does have significant underlying COPD and I believe extubating the patient to BiPAP would be reasonable. In the meantime we will support the patient on mechanical ventilation, and we will address weaning and extubation in the next 24 hours. Patient was reevaluated today on 07/18/23, patient underwent bronchoscopy and multiple endobronchial biopsies of a large tumor completely occluding the right mainstem bronchus, right upper lobe, and she had to transfer enrike needle aspiration of lymph nodes. Patient was extubated after the procedure however she did not tolerate the extubation and she had to be reintubated by MANUFACTURING TECHNICIAN. Patient was admitted to the ICU overnight, and I'm seeing her today, patient remains intubated and mechanically ventilated. She is on assist control rate of 26 tidal volume to 50 FiO2 45% and PEEP of 5 ABG showed a pO2 of 79 pCO2 50 pH of 7.40. Chest x-ray continues to show complete opacification of the right lung, left lung seems to be relatively clear. Patient is on propofol at 35 mcg/kg/m she is also on IV fluid at 100 mL per hour. After evaluating the patient, I recommended stopping propofol, patient was given a trial of pressure support of 12 and CPAP, and she was tolerating the weaning well. And I extub ated the patient to BiPAP, 12//40%, and I will follow along next to the patient evaluating her pulmonary status during this transition from mechanical ventilation to BiPAP. Patient seemed to do better on BiPAP, hence we'll keep her on BiPAP today, and we will continue bronchodilators, we will continue her IV fluids, and awaiting final pathology from her recent endobronchial biopsies. Overall prognosis considering the findings on the bronchoscopy yesterday, is extremely poor She was seen and examined today on 07/19/23, patient remains in the ICU, she was extubated yesterday successfully, presently on nasal cannula at 8 L/m, however she was on BiPAP at night 12/6/45%. O2 saturations in the mid 90s I cut her down to 5 L nasal cannula, patient did not sleep well last night. IV fluid is c ut down to KVO, patient is eating and drinking pathology from the bronchoscopy is still pending however in the meantime I'm recommending consultation with oncology and with radiation oncology. Chest x-ray continues to show complete opacification of the right hemithorax. No infiltrate in the left lung. WBC count is 15.7 hemoglobin is 11.1, basic metabolic profile is normal, renal profile is normal Patient was seen and examined today on 07/20/23, patient remains in the ICU, she is supposedly overflow, but overnight she developed worsening shortness of breath and she had to be placed on BiPAP, she remains on BiPAP this morning. She is on 12/6/45%, remains on Zosyn, remains on bronchodilators, and today I went ahead and added Decadron. Patient was seen by oncology, and again we are waiting for the tissue diagnosis/biopsy. Overall clinical picture does not look very promising, patient is marginal at best. And I did discuss the CODE STATUS with the patient yesterday, and she definitely wants to be DO NOT RESUSCITATE CODE STATUS. I will try to reach her son Christophe sometime later today and discussed her condition with him also. WBC count is 14.1 hemoglobin is 10.8, basic metabolic profile is normal sodium is up to 145. And renal profile is normal The patient is seen today 07/21/2023 in follow-up on the regular medical floor. Awake and alert in no acute distress. She is currently sitting up in a chair at the bedside. She is having difficulty breathing when lying in bed. She is maintaining O2 saturations in the 90s on 7 L high flow nasal cannula. She currently denies any worsening shortness of breath, cough or congestion. She denies any pain. Her family is at the bedside. Blood cultures revealed no growth. Bronchial wash cultures reveal no growth. Pathology is pending from biopsies. White count 13.8. Hemoglobin 11.1. Platelets 512. Sodium 130. Potassium 4.0. Bicarb 35. BUN 23. Creatinine 0.42. She remains on Symbicort, albuterol, Decadron. Heparin for DVT prophylaxis. Normal saline at [facility]. Antibiotics in the form of Zosyn. The patient is seen today 07/22/2023 in follow-up on the regular medical floor. She is sitting up in a chair. Awake and alert in no acute distress. Denies any worsening shortness of breath, cough or congestion. She is still on 7 high flow liters high flow nasal cannula to maintain O2 saturations in the 90s. Blood cultures revealed no growth. Bronchial wash cultures revealed no growth. Pathology still pending. White count 12.4. Hemoglobin 11.2. Platelets 539. Sodium 149. Potassium 3.9. Bicarb 35. BUN 23. Creatinine 0.44. Glucose 103. She is continued on Symbicort, albuterol, Decadron. Antibiotics in the form of Zosyn. The patient is seen today 07/23/2023 in follow-up on the regular medical floor. She is awake and alert in no acute distress. She is maintaining O2 saturations in the 90s on 5 L high flow nasal cannula. She denies any worsening shortness of breath, cough or congestion. Her oxygenation continues to improve. She may require home oxygen. Blood cultures revealed no growth. Bronchial wash cultures revealed no growth. Sodium 151. Potassium 3.9. Bicarb 36. BUN 20. Creatinine 0.4. She completed a course of antibiotics. She is on heparin for DVT prophylaxis. Continue on Symbicort and albuterol. Continued on a prednisone taper. The patient is seen today 07/24/2023 in follow-up on the regular medical floor. She is sitting up in a chair. Awake and alert in no acute distress. She is down to 4 L high flow nasal cannula maintaining O2 saturations in the 90s. She does desaturate to 88% and a brief walk on room air. Blood cultures revealed no growth. Bronchial wash cultures revealed no growth. Her lung biopsies did come back positive for small cell carcinoma. She is continued on Symbicort, albuterol, prednisone. Heparin for DVT prophylaxis. D5W at 75 ML's per hour. The patient is seen today 07/25/2023 in follow-up on the regular medical floor. She is awake and alert in no acute distress. Sitting up in a chair at the bedside. She is maintaining O2 saturations in the 90s on 4 L/m per nasal cannula. She is continued on Symbicort, prednisone and albuterol. Heparin for DVT prophylaxis. Prednisone taper. MRI of the brain revealed a small focus of enhancement in the left frontal lobe concerning for metastatic disease. No evidence of acute/subacute CVA. Nonspecific white matter changes. DT scan of the abdomen and pelvis revealed markedly generalized anasarca. No changes in the visualized right lung. Also extensive tumor infiltrating throughout the visualized right lower lobe. Pleural disease with moderate right pleural effus ion and pleural studding. Multiple hepatic metastases measuring up to 4.2 cm. Mild nodular thickening of the bilateral adrenal glands also suspicious. White count 13.2. Hemoglobin 11.7. Platelets 469. Sodium 141. Potassium 3.4. Bicarb 34. BUN 12. Creatinine 0.4. Glucose 126. The patient is seen today 08/05/2023 in follow-up on the regular medical floor. She is sitting up in a chair. Awake and alert in no acute distress. Maintaining O2 saturations in the 90s on 4 L/m per nasal cannula. No IV fluids. She denies any worsening shortness of breath, cough or congestion. White count 10.5. Hemoglobin 12.0. Platelets 435. Sodium 142. Potassium 3.8. Bicarb 34. BUN 8.8. Creatinine 0.3. Glucose 98. AST 49. ALT 42. She is continued on Symbicort and albuterol. Heparin for DVT prophylaxis. Initiated on Decadron 10 mg IV every 24 hours today. She will will be starting carboplatin and etoposide today per oncology. The patient is seen today 07/27/2023 in follow-up on the regular medical floor. She remains awake and alert in no acute distress. Maintaining O2 saturations in the 90s on 4 L/m per nasal cannula. Currently sitting up in a chair at the bedside. She did receive her first round of chemotherapy yesterday and including carboplatin and etoposide, remains on Decadron 10 mg IV daily. She denies any worsening shortness of breath, cough or congestion. No hemoptysis. Blood cultures revealed no growth. Bronchial wash cultures revealed no growth. White count 15.8. Hemoglobin 11.7. Platelets 389. Sodium 143. Potassium 4.4. Bicarb 32. BUN 14. Creatinine 0.4. Glucose 125. AST 57. ALT 58. LDH 408. Albumin 3.2. She remains on bronchodilators. Normal saline at 100 ML's per hour. Tolerating a regular diet. Objective - Vital Signs Vital signs: Vital Signs Temp 97.3 F L 07/27/23 08:02 Pulse 89 07/27/23 08:02 Resp 16 07/27/23 08:02 BP 111/66 07/27/23 08:02 Pulse Ox 97 07/27/23 08:02 FiO2 45 07/19/23 19:40 Intake & Output 07/26/23 07/27/23 07/27/23 18:59 06:59 18:59 Intake Total 120 580 Output Total 1500 500 Balance -1380 80 Intake: Oral 120 580 Output: Urine 1500 500 Other: Voiding Method External Catheter External Catheter - Exam GENERAL EXAM: Alert, pleasant 63-year-old female, on 4 L nasal cannula, in no apparent distress. HEAD: Normocephalic. EYES: Normal reaction of pupils, equal size. NOSE: Clear with pink turbinates. THROAT: No erythema or exudates. NECK: No masses, no JVD. CHEST: No chest wall deformity. LUNGS: Equal air entry with diminished breath sounds throughout the right lung. Left lung is clear. CVS: S1 and S2 normal with no audible murmur, regular rhythm. ABDOMEN: No hepatosplenomegaly, normal bowel sounds, no guarding or rigidity. SPINE: No scoliosis or deformity SKIN: No rashes CENTRAL NERVOUS SYSTEM: No focal deficits, tone is normal in all 4 extremities. EXTREMITIES: There is no peripheral edema. No clubbing, no cyanosis. Pe ripheral pulses are intact. - Labs CBC & Chem 7: 07/27/23 05:24 07/27/23 05:24 Labs: Abnormal Lab Results - Last 24 Hours (Table) 07/27/23 07/27/23 Range/Units 05:24 05:24 WBC 15.83 H (4.50-10.00) X 10*3/uL RBC 3.95 L (4.10-5.20) X 10*6/uL Hgb 11.7 L (12.0-15.0) g/dL MCHC 30.8 L (32.0-37.0) g/dL Neutrophils # 14.78 H (1.80-7.70) X 10*3/uL Lymphocytes # 0.47 L (0.90-5.00) X 10*3/uL Eosinophils # 0 L (0.04-0.35) X 10*3/uL Creatinine 0.4 L (0.6-1.5) mg/dL BUN/Creatinine Ratio 35.50 H (12.00-20.00) Ratio Glucose 125 H (70-110) mg/dL AST 57 H (13-35) U/L ALT 58 H (8-44) U/L Lactate Dehydrogenase 408 H (120-246) U/L Total Protein 6.0 L (6.2-8.2) g/dL Albumin 3.2 L (3.8-4.9) g/dL Albumin/Globulin Ratio 1.14 L (1.60-3.17) Ratio Assessment and Plan Assessment: Acute hypoxic and hypercapnic respiratory failure related to her underlying COPD, also related to her underlying lung mass and significant opacification of the right lung secondary to lung mass, and also related to her hilar adenopathy. This is all consistent with COPD and underlying bronchogenic carcinoma most likely squamous cell lung cancer. Bronchoscopy with biopsies performed on 07/17/2023. Pathology is positive for small cell carcinoma. MRI of the brain revealed a small focus of enhancement in the left frontal lobe concerning for metastatic disease. No evidence of acute/subacute CVA. Nonspecific white matter changes. DT scan of the abdomen and pelvis revealed markedly generalized anasarca. No changes in the visualized right lung. Also extensive tumor infiltrating throughout the visualized right lower lobe. Pleural disease with moderate right pleural effusion and pleural studding. Multiple hepatic metastases measuring up to 4.2 cm. Mild nodular thickening of the bilateral adrenal glands also suspicious. Initiated on carboplatin/etoposide 07/26/2023. Initiated on Decadron 10 mg IV daily Hypernatremia, sodium 149 following previous hyponatremia corrected Postobstructive pneumonia involving the right lung area, currently on Zosyn Chronic and ongoing tobacco dependence Coronary artery disease, prior stenting of the LAD Hypertension Hyperlipidemia Plan: The patient was seen and evaluated Medications and labs reviewed Initiated on carboplatin/etoposide 07/26/2023 Continue Decadron 10 mg IV daily Continue Symbicort, albuterol Titrate the FiO2 as tolerated We will continue to follow This patient was seen independently by the nurse practitioner I have personally seen and examined the patient, performed the documentation and the assessment and plan as written. Number of minutes spent on the visit: 22.
--- NOTE | 2023-07-27 13:18 | P.PN ---
Subjective This is a pleasant 63 years old female with past medical history of Coronary Artery Disease s/p stenting, Heart Failure, GERD/Reflux, Hyperlipidemia, Hypertension, her PCP is Dr. Navarrete and trust mail clerk Dr. Neff for her history of coronary artery disease status post stent Patient presents because of worsening dyspnea over 3 days especially with exertion she has to stop to catch up with her breath. No significant chest pain and no significant coughing No other urinary GI symptoms. No dizziness weakness or numbness. She quit smoking about 2 months ago, lately she used to smoke 5 cigarettes per day. No alcohol or illicit drugs. She is hemodynamically stable, afebrile saturating well on 2 L oxygen via nasal cannula Labs showed mild leukocytosis of 13 and 14,000. Sodium markedly low at 1.8 and 131. ProBNP is low at 178. Troponin were unremarkable. Labs including CBC, BMP liver enzymes are unremarkable EKG showing normal sinus rhythm at 85 CT of the lung showing normal pulmonary embolism and rule out right pleural effusion with right lung consolidation suspicious for a mass. 07/25/2023 Patient seen in follow-up today and did undergo MRI of the brain along with CT of the abdomen and pelvis for further staging and there are multiple concerns of metastatic lesions including a lesion noted in the brain with oncology and radiation oncology following closely. Plan is to initiate inpatient chemotherapy. Patient and family are agreeable to proceed with this and patient is being transferred down to [address]. to undergo chemo therapy. Radiation oncology will follow as well. Patient continues on 4 L via nasal cannula and extremely weak recommending physical therapy daily. Patient reports tolerating diet. Patient continues on D5 water and sodium levels are improving we'll discontinue fluids and follow-up with repeat labs. 07/26/2023 Patient seen and evaluated in follow-up today currently scheduled to undergo chemotherapy initiation today. Patient with no significant worsening shortness of breath and reports feeling somewhat improved today. Patient denies any pain and denies nausea or vomiting and has been tolerating diet. Patient encouraged to increase activity as tolerated and continue working with physical therapy daily as well as increased oral intake. We'll follow up on repeat labs and continue to monitor closely 07/27/2023 Patient sitting in chair, comfortable, breathing quietly, much better than 2 weeks ago when I saw her. No cough and no chest pain no other new complaints. 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 She's getting normal saline 100 mL per hour Her pneumonia resolved and currently patient monitor while off antibiotic Objective - Vital Signs Vital signs: Vital Signs Temp 97.6 F 07/27/23 12:00 Pulse 84 07/27/23 12:00 Resp 16 07/27/23 12:00 BP 98/62 07/27/23 12:00 Pulse Ox 95 07/27/23 12:00 FiO2 45 07/19/23 19:40 Intake & Output 07/26/23 07/27/23 07/27/23 18:59 06:59 18:59 Intake Total 120 580 Output Total 1500 500 Balance -1380 80 Intake: Oral 120 580 Output: Urine 1500 500 Other: Voiding Method External Catheter External Catheter - Exam GENERAL: The patient is alert and oriented x3, not in any acute distress. Well developed, well nourished. HEENT: Pupils are round and equally reacting to light. EOMI. No scleral icterus. No conjunctival pallor. Normocephalic, atraumatic. No pharyngeal erythema. No thyromegaly. CARDIOVASCULAR: S1 and S2 present. No murmurs, rubs, or gallops. -PULMONARY: Chest is clear to auscultation, no wheezing , no crackles. Decreased breath sounds on the right lung ABDOMEN: Soft, nontender, nondistended, normoactive bowel sounds. No palpable organomegaly. MUSCULOSKELETAL: No joint swelling or deformity. EXTREMITIES: No cyanosis, clubbing, or pedal edema. NEUROLOGICAL: Gross neurological examination did not reveal any focal deficits. SKIN: No rashes. no petechiae. - Labs CBC & Chem 7: 07/27/23 05:24 07/27/23 05:24 Labs: Abnormal Lab Results - Last 24 Hours (Table) 07/27/23 07/27/23 Range/Units 05:24 05:24 WBC 15.83 H (4.50-10.00) X 10*3/uL RBC 3.95 L (4.10-5.20) X 10*6/uL Hgb 11.7 L (12.0-15.0) g/dL MCHC 30.8 L (32.0-37.0) g/dL Neutrophils # 14.78 H (1.80-7.70) X 10*3/uL Lymphocytes # 0.47 L (0.90-5.00) X 10*3/uL Eosinophils # 0 L (0.04-0.35) X 10*3/uL Creatinine 0.4 L (0.6-1.5) mg/dL BUN/Creatinine Ratio 35.50 H (12.00-20.00) Ratio Glucose 125 H (70-110) mg/dL AST 57 H (13-35) U/L ALT 58 H (8-44) U/L Lactate Dehydrogenase 408 H (120-246) U/L Total Protein 6.0 L (6.2-8.2) g/dL Albumin 3.2 L (3.8-4.9) g/dL Albumin/Globulin Ratio 1.14 L (1.60-3.17) Ratio Assessment and Plan Assessment: right lung mass with biopsy showing small cell lung cancer, undergoing chemotherapy Mediastinal lymphadenopathy Mild hypernatremia , resolved post obstructive pneumonia, finished antibiotics Hypertension Hyperlipidemia Chronic heart failure History of coronary artery disease status post stenting Plan: Continue with a breathing treatment Continue with gentle hydration Pulmonary and oncology consult Continue with chemotherapy per oncology team as well as dexamethasone Labs and medication were reviewed.. Continue same treatment. Continue with symptomatic treatment. Resume home medication. Monitor labs and vitals. DVT and GI prophylaxis. Further recommendations as per clinical course of the patient DVT prophylaxis: Subcutaneous heparin GI Prophylaxis: Pepcid PT/OT: Pending Prognosis is guarded
[2023-07-27] MEDS: DEXAMETHASONE SOD PHOSPHATE 10 MG/ML 1 ML VIAL IV SCH (14:10)
[2023-07-27] MEDS: FAMOTIDINE 20 MG/2 ML VIAL IV SCH (14:10)
[2023-07-27] MEDS: ONDANSETRON 16 MG in SODIUM CHLORIDE 0.9% 50 ML IVPB SCH (14:11)
[2023-07-27] MEDS: ETOPOSIDE 180 MG in SODIUM CHLORIDE 0.9% 500 ML 500 ML IV SCH (14:50)
--- NOTE | 2023-07-27 15:27 | P.PN ---
Subjective Progress Note Date: 07/27/23 Principal diagnosis: lung mass, SCLC At today's visit patient is resting comfortably in bedside chair. Patient is reporting improvement in breathing/SOB. Day 2/3 of inpt chemo, Carbo/INDEPENDENT DRIVER. Tolerating well. Reporting some increase in BLE over the last cpl days. Objective - Vital Signs Vital signs: Vital Signs Temp 97.6 F 07/27/23 12:00 Pulse 84 07/27/23 15:07 Resp 16 07/27/23 12:00 BP 98/62 07/27/23 12:00 Pulse Ox 95 07/27/23 12:00 FiO2 45 07/19/23 19:40 Intake & Output 07/26/23 07/27/23 07/27/23 18:59 06:59 18:59 Intake Total 120 580 Output Total 1500 500 Balance -1380 80 Weight 80.7 kg Intake: Oral 120 580 Output: Urine 1500 500 Other: Voiding Method External Catheter External Catheter - Constitutional General appearance: Present: no acute distress - EENT Eyes: Present: anicteric sclerae ENT: Present: hearing grossly normal - Respiratory Respiratory: right: diminished, left: CTA - Cardiovascular Rhythm: regular Heart sounds: normal: S1, S2 Abnormal Heart Sounds: Absent: systolic murmur, diastolic murmur, rub, S3 Gallop, S4 Gallop, click, other - Peripheral edema leg Peripheral Edema: right: 2+, left: 1+ - Integumentary Integumentary: Absent: cyanotic - Musculoskeletal Musculoskeletal: Present: strength equal bilaterally - Psychiatric Psychiatric: Present: A&O x's 3, appropriate affect, intact judgment & insight - Labs CBC & Chem 7: 07/27/23 05:24 07/27/23 05:24 Labs: Abnormal Lab Results - Last 24 Hours (Table) 07/27/23 07/27/23 Range/Units 05:24 05:24 WBC 15.83 H (4.50-10.00) X 10*3/uL RBC 3.95 L (4.10-5.20) X 10*6/uL Hgb 11.7 L (12.0-15.0) g/dL MCHC 30.8 L (32.0-37.0) g/dL Neutrophils # 14.78 H (1.80-7.70) X 10*3/uL Lymphocytes # 0.47 L (0.90-5.00) X 10*3/uL Eosinophils # 0 L (0.04-0.35) X 10*3/uL Creatinine 0.4 L (0.6-1.5) mg/dL BUN/Creatinine Ratio 35.50 H (12.00-20.00) Ratio Glucose 125 H (70-110) mg/dL AST 57 H (13-35) U/L ALT 58 H (8-44) U/L Lactate Dehydrogenase 408 H (120-246) U/L Total Protein 6.0 L (6.2-8.2) g/dL Albumin 3.2 L (3.8-4.9) g/dL Albumin/Globulin Ratio 1.14 L (1.60-3.17) Ratio Assessment and Plan (1) Acute exacerbation of chronic obstructive pulmonary disease Current Visit: Yes Status: Acute Code(s): J44.1 - CHRONIC OBSTRUCTIVE PULMONARY DISEASE W (ACUTE) EXACERBATION SNOMED Code(s): 043559374 (2) Lung mass Current Visit: Yes Status: Acute Code(s): R91.8 - OTHER NONSPECIFIC ABNORMAL FINDING OF LUNG FIELD SNOMED Code(s): 816135056 (3) Small cell lung carcinoma Current Visit: Yes Status: Acute Priority: High Code(s): C34.90 - MALIGNANT NEOPLASM OF UNSP PART OF UNSP BRONCHUS OR LUNG SNOMED Code(s): 579777420 Plan: Metastatic small cell lung carcinoma: -Significant history of COPD and nicotine abuse, with 40 pack years. Progressive shortness of breath since May after being diagnosed with COVID -CTA chest revealed no acute pulmonary embolism. Poor vascularity on the right with a large right pleural effusion with compressive atelectasis at the lung bases and apparent consolidation within right upper lung field. Consideration for underlying mass. Enlarged mediastinal adenopathy. -S/p bronchoscopy with biopsy. Pathology and cytology revealing small cell carcinoma. -Rad onc consult placed. Spoke with Dr. Oneill, pt has no noted neuro deficits, will plan to await staging imaging and follow-up outpatient -MRI brain and CT AP obtained for staging. MRI brain revealed small focus, 5 mm enhancement in the left frontal lobe. No evidence for acute/subacute CVA. Nonspecific white matter changes. CT abdomen pelvis showed known changes in the visualized right lung. Possible extensive tumor infiltrating throughout the visualized right lower lobe. Pleural disease with moderate right pleural effusion and pleural studding. Multiple hepatic metastases measuring up to 4.2 cm and mild nodular thickening of bilateral adrenal glands. Findings were reviewed with pt and that this is consistent with extensive stage small cell carcinoma -Day 2 of Carbo/INDEPENDENT DRIVER. With plans to discharge to rehab and upon discharge will add immunotherapy, tecentriq to regimen. -Tumor lysis workup negative, will continue to monitor -CBC/CMP daily -Tolerating treatment well, will decrease IV fluids to 50cc/hr Plan was discussed in detail with patient and family COPD exacerbation: -Pulm following, continues on inhalers and steroids
[2023-07-27] MEDS: ALPRAZolam 0.25 MG TAB PO SCH (20:58)
[2023-07-28] MEDS: ALBUTEROL NEBULIZED 2.5 MG/3 ML INHALATION SCH ×4 (07:34→20:25)
[2023-07-28] MEDS: SYMBICORT 160-4.5 MCG INHALER INHALATION SCH ×2 (07:34→20:25)
[2023-07-28] MEDS: carvediloL 12.5 MG TAB PO SCH ×2 (08:46→17:12)
[2023-07-28] MEDS: HEPARIN SODIUM,PORCINE 5,000 UNIT/ML 1 ML VIAL SQ SCH ×2 (08:46→20:40)
--- NOTE | 2023-07-28 10:17 | P.PN ---
Subjective Progress Note Date: 07/28/23 This is a 63-year-old female patient, a chronic smoker started age of 18 and she quit smoking approximately 2 months ago. She presented emergency department was a 3 days history of shortness of breath. CAT scan of the chest was done in the emergency department and the patient was found to have extensive mediastinal lymphadenopathy and this is present in the right paratracheal area, right hilum, subcarinal area and the patient has mass effect with significant narrowing of the distal right main stem bronchus and bronchus intermedius and airways completely occluded past the distal right main stem. As such, the patient has extensive atelectatic changes in the right middle lobe and the right lower lobe with a small right-sided pleural effusion. Presentation is highly suspicious for small cell lung cancer. No evidence of any pulmonary embolism. The patient has of the discomfort of 14.2, sodium is at 131 initially at 128 probably related to SIADH. Troponins are negative. Pro-calcitonin level is at 12.8. She is afebrile. Hemodynamically stable. Pulse ox is 95% liters of oxygen by nasal cannula. No hemoptysis. 20 pounds weight loss. The patient is seen today 07/16/2023 in follow-up on the regular medical floor. She is awake and alert in no acute distress. She is maintaining good O2 saturations in the mid 90s on 2 L/m per nasal cannula. She's afebrile. Hemodynamically stable. No new labs today. She is continued on Zosyn. Heparin for DVT prophylaxis. Normal saline at 75 ML's per hour. Based on the above mentioned computed tomography scan findings we will plan for bronchoscopy and probable biopsies tomorrow. The patient is seen today 07/17/2023 in follow-up on the regular medical floor. She is currently sitting up in a chair at the bedside. Awake and alert in no acute distress. She is maintaining O2 saturations in the 90s on 3 L/m per nasal cannula. She's been afebrile. Hemodynamically stable. Blood cultures reveal no growth. White count 12.8. Hemoglobin 11.3. Platelets 517. Sodium 140. Potassium 4.1. Bicarb 28. BUN 17. Creatinine 0.6. Glucose 104. Remains on antibiotics in form of Zosyn. Plan is for bronchoscopy with biopsies today 07/17/23 Patient underwent bronchoscopy and there was evidence of complete obstruction of the right mainstem bronchus and right upper lobe bronchus, there was evidence of endobronchial tumor, cauliflower-shaped tumor involving the enrike, right upper lobe bronchus, right mainstem bronchus, and there was no visualization of the right upper lobe or right middle lobe or right lower lobe. Procedure was done, patient underwent multiple biopsies of the endobronchial tumor, brushings were done, au needle aspiration of 4R lymph node done. The procedure was well- tolerated, however the patient was extubated in the recovery room, however she had to be reintubated because she was acting confused and her O2 saturations were running low. Patient was placed back on mechanical ventilation with assist control rate of 24, tidal volume to 50, FiO2 on the percent, PEEP of 5. Patient will be transferred to the ICU, she would be kept on mechanical ventilation tonight, and will likely address weaning and extubation to BiPAP in the next 24 hours. Patient does have significant underlying COPD and I believe extubating the patient to BiPAP would be reasonable. In the meantime we will support the patient on mechanical ventilation, and we will address weaning and extubation in the next 24 hours. Patient was reevaluated today on 07/18/23, patient underwent bronchoscopy and multiple endobronchial biopsies of a large tumor completely occluding the right mainstem bronchus, right upper lobe, and she had to transfer enrike needle aspiration of lymph nodes. Patient was extubated after the procedure however she did not tolerate the extubation and she had to be reintubated by CONFERENCE ASSISTANT. Patient was admitted to the ICU overnight, and I'm seeing her today, patient remains intubated and mechanically ventilated. She is on assist control rate of 26 tidal volume to 50 FiO2 45% and PEEP of 5 ABG showed a pO2 of 79 pCO2 50 pH of 7.40. Chest x-ray continues to show complete opacification of the right lung, left lung seems to be relatively clear. Patient is on propofol at 35 mcg/kg/m she is also on IV fluid at 100 mL per hour. After evaluating the patient, I recommended stopping propofol, patient was given a trial of pressure support of 12 and CPAP, and she was tolerating the weaning well. And I extub ated the patient to BiPAP, 12//40%, and I will follow along next to the patient evaluating her pulmonary status during this transition from mechanical ventilation to BiPAP. Patient seemed to do better on BiPAP, hence we'll keep her on BiPAP today, and we will continue bronchodilators, we will continue her IV fluids, and awaiting final pathology from her recent endobronchial biopsies. Overall prognosis considering the findings on the bronchoscopy yesterday, is extremely poor She was seen and examined today on 07/19/23, patient remains in the ICU, she was extubated yesterday successfully, presently on nasal cannula at 8 L/m, however she was on BiPAP at night 12/6/45%. O2 saturations in the mid 90s I cut her down to 5 L nasal cannula, patient did not sleep well last night. IV fluid is c ut down to KVO, patient is eating and drinking pathology from the bronchoscopy is still pending however in the meantime I'm recommending consultation with oncology and with radiation oncology. Chest x-ray continues to show complete opacification of the right hemithorax. No infiltrate in the left lung. WBC count is 15.7 hemoglobin is 11.1, basic metabolic profile is normal, renal profile is normal Patient was seen and examined today on 07/20/23, patient remains in the ICU, she is supposedly overflow, but overnight she developed worsening shortness of breath and she had to be placed on BiPAP, she remains on BiPAP this morning. She is on 12/6/45%, remains on Zosyn, remains on bronchodilators, and today I went ahead and added Decadron. Patient was seen by oncology, and again we are waiting for the tissue diagnosis/biopsy. Overall clinical picture does not look very promising, patient is marginal at best. And I did discuss the CODE STATUS with the patient yesterday, and she definitely wants to be DO NOT RESUSCITATE CODE STATUS. I will try to reach her son Christophe sometime later today and discussed her condition with him also. WBC count is 14.1 hemoglobin is 10.8, basic metabolic profile is normal sodium is up to 145. And renal profile is normal The patient is seen today 07/21/2023 in follow-up on the regular medical floor. Awake and alert in no acute distress. She is currently sitting up in a chair at the bedside. She is having difficulty breathing when lying in bed. She is maintaining O2 saturations in the 90s on 7 L high flow nasal cannula. She currently denies any worsening shortness of breath, cough or congestion. She denies any pain. Her family is at the bedside. Blood cultures revealed no growth. Bronchial wash cultures reveal no growth. Pathology is pending from biopsies. White count 13.8. Hemoglobin 11.1. Platelets 512. Sodium 130. Potassium 4.0. Bicarb 35. BUN 23. Creatinine 0.42. She remains on Symbicort, albuterol, Decadron. Heparin for DVT prophylaxis. Normal saline at [facility]. Antibiotics in the form of Zosyn. The patient is seen today 07/22/2023 in follow-up on the regular medical floor. She is sitting up in a chair. Awake and alert in no acute distress. Denies any worsening shortness of breath, cough or congestion. She is still on 7 high flow liters high flow nasal cannula to maintain O2 saturations in the 90s. Blood cultures revealed no growth. Bronchial wash cultures revealed no growth. Pathology still pending. White count 12.4. Hemoglobin 11.2. Platelets 539. Sodium 149. Potassium 3.9. Bicarb 35. BUN 23. Creatinine 0.44. Glucose 103. She is continued on Symbicort, albuterol, Decadron. Antibiotics in the form of Zosyn. The patient is seen today 07/23/2023 in follow-up on the regular medical floor. She is awake and alert in no acute distress. She is maintaining O2 saturations in the 90s on 5 L high flow nasal cannula. She denies any worsening shortness of breath, cough or congestion. Her oxygenation continues to improve. She may require home oxygen. Blood cultures revealed no growth. Bronchial wash cultures revealed no growth. Sodium 151. Potassium 3.9. Bicarb 36. BUN 20. Creatinine 0.4. She completed a course of antibiotics. She is on heparin for DVT prophylaxis. Continue on Symbicort and albuterol. Continued on a prednisone taper. The patient is seen today 07/24/2023 in follow-up on the regular medical floor. She is sitting up in a chair. Awake and alert in no acute distress. She is down to 4 L high flow nasal cannula maintaining O2 saturations in the 90s. She does desaturate to 88% and a brief walk on room air. Blood cultures revealed no growth. Bronchial wash cultures revealed no growth. Her lung biopsies did come back positive for small cell carcinoma. She is continued on Symbicort, albuterol, prednisone. Heparin for DVT prophylaxis. D5W at 75 ML's per hour. The patient is seen today 07/25/2023 in follow-up on the regular medical floor. She is awake and alert in no acute distress. Sitting up in a chair at the bedside. She is maintaining O2 saturations in the 90s on 4 L/m per nasal cannula. She is continued on Symbicort, prednisone and albuterol. Heparin for DVT prophylaxis. Prednisone taper. MRI of the brain revealed a small focus of enhancement in the left frontal lobe concerning for metastatic disease. No evidence of acute/subacute CVA. Nonspecific white matter changes. DT scan of the abdomen and pelvis revealed markedly generalized anasarca. No changes in the visualized right lung. Also extensive tumor infiltrating throughout the visualized right lower lobe. Pleural disease with moderate right pleural effus ion and pleural studding. Multiple hepatic metastases measuring up to 4.2 cm. Mild nodular thickening of the bilateral adrenal glands also suspicious. White count 13.2. Hemoglobin 11.7. Platelets 469. Sodium 141. Potassium 3.4. Bicarb 34. BUN 12. Creatinine 0.4. Glucose 126. The patient is seen today 08/05/2023 in follow-up on the regular medical floor. She is sitting up in a chair. Awake and alert in no acute distress. Maintaining O2 saturations in the 90s on 4 L/m per nasal cannula. No IV fluids. She denies any worsening shortness of breath, cough or congestion. White count 10.5. Hemoglobin 12.0. Platelets 435. Sodium 142. Potassium 3.8. Bicarb 34. BUN 8.8. Creatinine 0.3. Glucose 98. AST 49. ALT 42. She is continued on Symbicort and albuterol. Heparin for DVT prophylaxis. Initiated on Decadron 10 mg IV every 24 hours today. She will will be starting carboplatin and etoposide today per oncology. The patient is seen today 07/27/2023 in follow-up on the regular medical floor. She remains awake and alert in no acute distress. Maintaining O2 saturations in the 90s on 4 L/m per nasal cannula. Currently sitting up in a chair at the bedside. She did receive her first round of chemotherapy yesterday and including carboplatin and etoposide, remains on Decadron 10 mg IV daily. She denies any worsening shortness of breath, cough or congestion. No hemoptysis. Blood cultures revealed no growth. Bronchial wash cultures revealed no growth. White count 15.8. Hemoglobin 11.7. Platelets 389. Sodium 143. Potassium 4.4. Bicarb 32. BUN 14. Creatinine 0.4. Glucose 125. AST 57. ALT 58. LDH 408. Albumin 3.2. She remains on bronchodilators. Normal saline at 100 ML's per hour. Tolerating a regular diet. The patient is seen today 07/28/2023 in follow-up on the regular medical floor. She is sitting up in a chair. Awake and alert in no acute distress. She denies any worsening shortness of breath, cough or congestion. She is maintaining O2 saturations in the 90s on 4 L/m per nasal cannula. She has normal saline at 50 MLS per hour. She is continuing on her chemotherapy treatment. Remains on Decadron. Continued on Symbicort and albuterol. Heparin for DVT prophylaxis. Objective - Vital Signs Vital signs: Vital Signs Temp 98.2 F 07/28/23 07:55 Pulse 83 07/28/23 07:55 Resp 16 07/28/23 07:55 BP 127/79 07/28/23 07:55 Pulse Ox 98 07/28/23 07:55 FiO2 45 07/19/23 19:40 Intake & Output 07/27/23 07/28/23 07/28/23 18:59 06:59 18:59 Intake Total 120 Balance 120 Weight 80.7 kg Intake: Oral 120 Other: Voiding Method External Catheter # Voids 2 3 - Exam GENERAL EXAM: Alert, 63-year-old female, up in a chair, on 4 L nasal cannula, in no apparent distress. HEAD: Normocephalic. EYES: Normal reaction of pupils, equal size. NOSE: Clear with pink turbinates. THROAT: No erythema or exudates. NECK: No masses, no JVD. CHEST: No chest wall deformity. LUNGS: Equal air entry with diminished breath sounds throughout the right lung. Left lung is clear. CVS: S1 and S2 normal with no audible murmur, regular rhythm. ABDOMEN: No hepatosplenomegaly, normal bowel sounds, no guarding or rigidity. SPINE: No scoliosis or deformity SKIN: No rashes CENTRAL NERVOUS SYSTEM: No focal deficits, tone is normal in all 4 extremities. EXTREMITIES: There is no peripheral edema. No clubbing, no cyanosis. Peripheral pulses are intact. - Labs CBC & Chem 7: 07/27/23 05:24 07/27/23 05:24 Labs: Microbiology - Last 24 Hours (Table) 07/17/23 13:00 Fungal Culture - Preliminary Bronchial Washings - Right Assessment and Plan Assessment: Acute hypoxic and hypercapnic respiratory failure related to her underlying COPD, also related to her underlying lung mass and significant opacification of the right lung secondary to lung mass, and also related to her hilar adenopathy. This is all consistent with COPD and underlying bronchogenic carcinoma most likely squamous cell lung cancer. Bronchoscopy with biopsies performed on 07/17/2023. Pathology is positive for small cell carcinoma. MRI of the brain revealed a small focus of enhancement in the left frontal lobe concerning for metastatic disease. No evidence of acute/subacute CVA. Nonspecific white matter changes. DT scan of the abdomen and pelvis revealed markedly generalized anasarca. No changes in the visualized right lung. Also extensive tumor infiltrating throughout the visualized right lower lobe. Pleural disease with moderate right pleural effusion and pleural studding. Multiple hepatic metastases measuring up to 4.2 cm. Mild nodular thickening of the bilateral adrenal glands also suspicious. Initiated on carboplatin/etoposide 07/26/2023. Initiated on Decadron 10 mg IV daily Hypernatremia, improved sodium 143 following previous hyponatremia corrected Postobstructive pneumonia involving the right lung area, completed Zosyn Chronic and ongoing tobacco dependence Coronary artery disease, prior stenting of the LAD Hypertension Hyperlipidemia Plan: The patient was seen and evaluated Medications reviewed Improving, on 4 L nasal cannula Initiated on carboplatin/etoposide 07/26/2023 Continue Decadron 10 mg IV daily Continue Symbicort, albuterol Titrate the FiO2 as tolerated Plan is for rehabilitation at [facility] upon discharge We will continue to follow This patient was seen independently by the nurse practitioner I have personally seen and examined the patient, performed the documentation and the assessment and plan as written. Number of minutes spent on the visit: 20.
[2023-07-28 11:02] LABS: Basophils # (A) 0.01 X 10*3/uL (0.00-0.10); Basophils % (A) 0.1 %; Eosinophils # (A) 0 X 10*3/uL (0.04-0.35); Eosinophils % (A) 0 %; HCT 38.1 % (37.2-46.3); HGB 11.4 g/dL (12.0-15.0); Lymphocytes % (A) 3.3 %; MCH 29.2 pg (27.0-32.0); MCHC 29.9 g/dL (32.0-37.0); MCV 97.7 FL (80.0-97.0); Mean Platelet Volume 10.3 FL (9.5-12.2); Monocytes # (A) 0.59 X 10*3/uL (0.20-1.00); Monocytes % (A) 3.9 %; NRBC Per 100 WBC 0 X 10*3/uL (0.00-0.01); Neutrophils # (A) 13.88 X 10*3/uL (1.80-7.70); Neutrophils % (A) 92.3 %; Platelet Count 370 X 10*3/uL (140-440); RDW 14.3 % (11.5-14.5); WBC 15.04 X 10*3/uL (4.50-10.00)
[2023-07-28 11:05] LABS: ALT 61 U/L (8-44); AST 51 U/L (13-35); Albumin 3.3 g/dL (3.8-4.9); Albumin/Globulin Ratio 1.18 Ratio (1.60-3.17); Alkaline Phosphatase 80 U/L (41-126); BUN/Creat Ratio 51.25 Ratio (12.00-20.00); Blood Urea Nitrogen 20.5 mg/dL (9.0-27.0); Carbon Dioxide 32.1 mmol/L (21.6-31.8); Chloride 103 mmol/L (96-109); Globulin 2.8 g/dL (1.6-3.3); Glucose 96 mg/dL (70-110); LDH 422 U/L (120-246); Phosphorus 3.7 mg/dL (2.4-5.1); Potassium 4.8 mmol/L (3.5-5.5); Sodium 143 mmol/L (135-145); Total Bilirubin <0.2 mg/dL (0.3-1.2); Total Protein 6.1 g/dL (6.2-8.2); Uric Acid 4.2 mg/dL (2.9-7.7)
[2023-07-28] MEDS: DEXAMETHASONE SOD PHOSPHATE 10 MG/ML 1 ML VIAL IV SCH (13:42)
[2023-07-28] MEDS: ONDANSETRON 16 MG in SODIUM CHLORIDE 0.9% 50 ML IVPB SCH (13:43)
[2023-07-28] MEDS: FAMOTIDINE 20 MG/2 ML VIAL IV SCH (13:43)
[2023-07-28] MEDS: ETOPOSIDE 180 MG in SODIUM CHLORIDE 0.9% 500 ML 500 ML IV SCH (14:02)
--- NOTE | 2023-07-28 16:08 | P.PN ---
Subjective Progress Note Date: 07/28/23 Principal diagnosis: Small cell lung cancer Pt doing well with chemo. D3/3 of chemo, carbo/etoposide. Objective - Vital Signs Vital signs: Vital Signs Temp 98.2 F 07/28/23 07:55 Pulse 87 07/28/23 11:16 Resp 16 07/28/23 07:55 BP 127/79 07/28/23 07:55 Pulse Ox 98 07/28/23 07:55 FiO2 45 07/19/23 19:40 Intake & Output 07/27/23 07/28/23 07/28/23 18:59 06:59 18:59 Intake Total 120 Balance 120 Weight 80.7 kg Intake: Oral 120 Other: Voiding Method External Catheter # Voids 2 3 - Exam The patient tired. No respiratory distress. No jaundice. - Labs CBC & Chem 7: 07/28/23 06:00 07/28/23 06:00 Labs: Abnormal Lab Results - Last 24 Hours (Table) 07/28/23 07/28/23 Range/Units 06:00 06:00 WBC 15.04 H (4.50-10.00) X 10*3/uL RBC 3.90 L (4.10-5.20) X 10*6/uL Hgb 11.4 L (12.0-15.0) g/dL MCV 97.7 H (80.0-97.0) FL MCHC 29.9 L (32.0-37.0) g/dL Neutrophils # 13.88 H (1.80-7.70) X 10*3/uL Lymphocytes # 0.50 L (0.90-5.00) X 10*3/uL Eosinophils # 0 L (0.04-0.35) X 10*3/uL Carbon Dioxide 32.1 H (21.6-31.8) mmol/L Creatinine 0.4 L (0.6-1.5) mg/dL BUN/Creatinine Ratio 51.25 H (12.00-20.00) Ratio Total Bilirubin <0.2 L (0.3-1.2) mg/dL AST 51 H (13-35) U/L ALT 61 H (8-44) U/L Lactate Dehydrogenase 422 H (120-246) U/L Total Protein 6.1 L (6.2-8.2) g/dL Albumin 3.3 L (3.8-4.9) g/dL Albumin/Globulin Ratio 1.18 L (1.60-3.17) Ratio Microbiology - Last 24 Hours (Table) 07/17/23 13:00 Fungal Culture - Preliminary Bronchial Washings - Right Assessment and Plan Assessment: 1. Small cell lung cancer, extensive stage 2 COPD exacerbation . Plan: Ms. Underwood is a very pleasant 63 yo female who is here for PEDRO, found to have lung mass, biopsy positive for small cell lung cancer. Staging work up with liver met's. She was started on chemotherapy with carboplatin/etoposide. - Tolerating chemo well, today is D3/3 - Continue with chemo as planned - Monitor for TLS, no signs of TLS at this time - Once chemotherapy completed, no objections to discharge from oncology stand point, plan on discharge to [facility] to rebuild her strength prior to C2 of chemo Discussed with pt and she is agreeable to the plan. All questions answered.
[2023-07-28] MEDS: SODIUM CHLORIDE 0.9% 1,000 ML IV SCH (17:13)
[2023-07-28] MEDS: ALPRAZolam 0.25 MG TAB PO SCH (20:40)
--- NOTE | 2023-07-28 21:20 | P.PN ---
Subjective This is a pleasant 63 years old female with past medical history of Coronary Artery Disease s/p stenting, Heart Failure, GERD/Reflux, Hyperlipidemia, Hypertension, her PCP is Dr. Navarrete and digital cartographic technician Dr. Neff for her history of coronary artery disease status post stent Patient presents because of worsening dyspnea over 3 days especially with exertion she has to stop to catch up with her breath. No significant chest pain and no significant coughing No other urinary GI symptoms. No dizziness weakness or numbness. She quit smoking about 2 months ago, lately she used to smoke 5 cigarettes per day. No alcohol or illicit drugs. She is hemodynamically stable, afebrile saturating well on 2 L oxygen via nasal cannula Labs showed mild leukocytosis of 13 and 14,000. Sodium markedly low at 1.8 and 131. ProBNP is low at 178. Troponin were unremarkable. Labs including CBC, BMP liver enzymes are unremarkable EKG showing normal sinus rhythm at 85 CT of the lung showing normal pulmonary embolism and rule out right pleural effusion with right lung consolidation suspicious for a mass. 07/25/2023 Patient seen in follow-up today and did undergo MRI of the brain along with CT of the abdomen and pelvis for further staging and there are multiple concerns of metastatic lesions including a lesion noted in the brain with oncology and radiation oncology following closely. Plan is to initiate inpatient chemotherapy. Patient and family are agreeable to proceed with this and patient is being transferred down to [address]. to undergo chemo therapy. Radiation oncology will follow as well. Patient continues on 4 L via nasal cannula and extremely weak recommending physical therapy daily. Patient reports tolerating diet. Patient continues on D5 water and sodium levels are improving we'll discontinue fluids and follow-up with repeat labs. 07/26/2023 Patient seen and evaluated in follow-up today currently scheduled to undergo chemotherapy initiation today. Patient with no significant worsening shortness of breath and reports feeling somewhat improved today. Patient denies any pain and denies nausea or vomiting and has been tolerating diet. Patient encouraged to increase activity as tolerated and continue working with physical therapy daily as well as increased oral intake. We'll follow up on repeat labs and continue to monitor closely 07/27/2023 Patient sitting in chair, comfortable, breathing quietly, much better than 2 weeks ago when I saw her. No cough and no chest pain no other new complaints. 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 She's getting normal saline 100 mL per hour Her pneumonia resolved and currently patient monitor while off antibiotic 07/28/2023 Patient tolerated chemotherapy well She is doing well, no new complaints. Patient finished chemotherapy today and oncology team and treated her for discharge to subacute rehab, she needs to follow up outpatient for second cycle of chemotherapy Patient becoming medically stable, pending placement most likely early next week Objective - Vital Signs Vital signs: Vital Signs Temp 98.2 F 07/28/23 07:55 Pulse 83 07/28/23 07:55 Resp 16 07/28/23 07:55 BP 127/79 07/28/23 07:55 Pulse Ox 98 07/28/23 07:55 FiO2 45 07/19/23 19:40 Intake & Output 07/27/23 07/28/23 07/28/23 18:59 06:59 18:59 Intake Total 120 Balance 120 Weight 80.7 kg Intake: Oral 120 Other: Voiding Method External Catheter # Voids 2 3 - Exam GENERAL: The patient is alert and oriented x3, not in any acute distress. Well developed, well nourished. HEENT: Pupils are round and equally reacting to light. EOMI. No scleral icterus. No conjunctival pallor. Normocephalic, atraumatic. No pharyngeal erythema. No thyromegaly. CARDIOVASCULAR: S1 and S2 present. No murmurs, rubs, or gallops. -PULMONARY: Chest is clear to auscultation, no wheezing , no crackles. Decreased breath sounds on the right lung ABDOMEN: Soft, nontender, nondistended, normoactive bowel sounds. No palpable organomegaly. MUSCULOSKELETAL: No joint swelling or deformity. EXTREMITIES: No cyanosis, clubbing, or pedal edema. NEUROLOGICAL: Gross neurological examination did not reveal any focal deficits. SKIN: No rashes. no petechiae. - Labs CBC & Chem 7: 07/28/23 06:00 07/28/23 06:00 Labs: Microbiology - Last 24 Hours (Table) 07/17/23 13:00 Fungal Culture - Preliminary Bronchial Washings - Right Assessment and Plan Assessment: right lung mass with biopsy showing small cell lung cancer, undergoing chemotherapy Mediastinal lymphadenopathy Mild hypernatremia , resolved post obstructive pneumonia, finished antibiotics Hypertension Hyperlipidemia Chronic heart failure History of coronary artery disease status post stenting Plan: Continue with a breathing treatment Continue with gentle hydration Pulmonary and oncology consult Continue with chemotherapy per oncology team as well as dexamethasone Labs and medication were reviewed.. Continue same treatment. Continue with symptomatic treatment. Resume home medication. Monitor labs and vitals. DVT and GI prophylaxis. Further recommendations as per clinical course of the patient DVT prophylaxis: Subcutaneous heparin GI Prophylaxis: Pepcid PT/OT: Pending Prognosis is guarded
[2023-07-29] MEDS: SODIUM CHLORIDE 0.9% 1,000 ML IV SCH (05:47)
[2023-07-29] MEDS: ALBUTEROL NEBULIZED 2.5 MG/3 ML INHALATION SCH ×4 (07:43→19:41)
[2023-07-29] MEDS: SYMBICORT 160-4.5 MCG INHALER INHALATION SCH ×2 (07:44→19:41)
[2023-07-29] MEDS: carvediloL 12.5 MG TAB PO SCH ×2 (08:34→17:57)
[2023-07-29] MEDS: HEPARIN SODIUM,PORCINE 5,000 UNIT/ML 1 ML VIAL SQ SCH ×2 (08:34→21:10)
--- NOTE | 2023-07-29 10:10 | P.PN ---
Subjective Progress Note Date: 07/29/23 This is a 63-year-old female patient, a chronic smoker started age of 18 and she quit smoking approximately 2 months ago. She presented emergency department was a 3 days history of shortness of breath. CAT scan of the chest was done in the emergency department and the patient was found to have extensive mediastinal lymphadenopathy and this is present in the right paratracheal area, right hilum, subcarinal area and the patient has mass effect with significant narrowing of the distal right main stem bronchus and bronchus intermedius and airways completely occluded past the distal right main stem. As such, the patient has extensive atelectatic changes in the right middle lobe and the right lower lobe with a small right-sided pleural effusion. Presentation is highly suspicious for small cell lung cancer. No evidence of any pulmonary embolism. The patient has of the discomfort of 14.2, sodium is at 131 initially at 128 probably related to SIADH. Troponins are negative. Pro-calcitonin level is at 12.8. She is afebrile. Hemodynamically stable. Pulse ox is 95% liters of oxygen by nasal cannula. No hemoptysis. 20 pounds weight loss. The patient is seen today 07/16/2023 in follow-up on the regular medical floor. She is awake and alert in no acute distress. She is maintaining good O2 saturations in the mid 90s on 2 L/m per nasal cannula. She's afebrile. Hemodynamically stable. No new labs today. She is continued on Zosyn. Heparin for DVT prophylaxis. Normal saline at 75 ML's per hour. Based on the above mentioned computed tomography scan findings we will plan for bronchoscopy and probable biopsies tomorrow. The patient is seen today 07/17/2023 in follow-up on the regular medical floor. She is currently sitting up in a chair at the bedside. Awake and alert in no acute distress. She is maintaining O2 saturations in the 90s on 3 L/m per nasal cannula. She's been afebrile. Hemodynamically stable. Blood cultures reveal no growth. White count 12.8. Hemoglobin 11.3. Platelets 517. Sodium 140. Potassium 4.1. Bicarb 28. BUN 17. Creatinine 0.6. Glucose 104. Remains on antibiotics in form of Zosyn. Plan is for bronchoscopy with biopsies today 07/17/23 Patient underwent bronchoscopy and there was evidence of complete obstruction of the right mainstem bronchus and right upper lobe bronchus, there was evidence of endobronchial tumor, cauliflower-shaped tumor involving the enrike, right upper lobe bronchus, right mainstem bronchus, and there was no visualization of the right upper lobe or right middle lobe or right lower lobe. Procedure was done, patient underwent multiple biopsies of the endobronchial tumor, brushings were done, au needle aspiration of 4R lymph node done. The procedure was well- tolerated, however the patient was extubated in the recovery room, however she had to be reintubated because she was acting confused and her O2 saturations were running low. Patient was placed back on mechanical ventilation with assist control rate of 24, tidal volume to 50, FiO2 on the percent, PEEP of 5. Patient will be transferred to the ICU, she would be kept on mechanical ventilation tonight, and will likely address weaning and extubation to BiPAP in the next 24 hours. Patient does have significant underlying COPD and I believe extubating the patient to BiPAP would be reasonable. In the meantime we will support the patient on mechanical ventilation, and we will address weaning and extubation in the next 24 hours. Patient was reevaluated today on 07/18/23, patient underwent bronchoscopy and multiple endobronchial biopsies of a large tumor completely occluding the right mainstem bronchus, right upper lobe, and she had to transfer enrike needle aspiration of lymph nodes. Patient was extubated after the procedure however she did not tolerate the extubation and she had to be reintubated by PANEL FLOW MACHINE OPERATOR. Patient was admitted to the ICU overnight, and I'm seeing her today, patient remains intubated and mechanically ventilated. She is on assist control rate of 26 tidal volume to 50 FiO2 45% and PEEP of 5 ABG showed a pO2 of 79 pCO2 50 pH of 7.40. Chest x-ray continues to show complete opacification of the right lung, left lung seems to be relatively clear. Patient is on propofol at 35 mcg/kg/m she is also on IV fluid at 100 mL per hour. After evaluating the patient, I recommended stopping propofol, patient was given a trial of pressure support of 12 and CPAP, and she was tolerating the weaning well. And I extub ated the patient to BiPAP, 12//40%, and I will follow along next to the patient evaluating her pulmonary status during this transition from mechanical ventilation to BiPAP. Patient seemed to do better on BiPAP, hence we'll keep her on BiPAP today, and we will continue bronchodilators, we will continue her IV fluids, and awaiting final pathology from her recent endobronchial biopsies. Overall prognosis considering the findings on the bronchoscopy yesterday, is extremely poor She was seen and examined today on 07/19/23, patient remains in the ICU, she was extubated yesterday successfully, presently on nasal cannula at 8 L/m, however she was on BiPAP at night 12/6/45%. O2 saturations in the mid 90s I cut her down to 5 L nasal cannula, patient did not sleep well last night. IV fluid is c ut down to KVO, patient is eating and drinking pathology from the bronchoscopy is still pending however in the meantime I'm recommending consultation with oncology and with radiation oncology. Chest x-ray continues to show complete opacification of the right hemithorax. No infiltrate in the left lung. WBC count is 15.7 hemoglobin is 11.1, basic metabolic profile is normal, renal profile is normal Patient was seen and examined today on 07/20/23, patient remains in the ICU, she is supposedly overflow, but overnight she developed worsening shortness of breath and she had to be placed on BiPAP, she remains on BiPAP this morning. She is on 12/6/45%, remains on Zosyn, remains on bronchodilators, and today I went ahead and added Decadron. Patient was seen by oncology, and again we are waiting for the tissue diagnosis/biopsy. Overall clinical picture does not look very promising, patient is marginal at best. And I did discuss the CODE STATUS with the patient yesterday, and she definitely wants to be DO NOT RESUSCITATE CODE STATUS. I will try to reach her son Christophe sometime later today and discussed her condition with him also. WBC count is 14.1 hemoglobin is 10.8, basic metabolic profile is normal sodium is up to 145. And renal profile is normal The patient is seen today 07/21/2023 in follow-up on the regular medical floor. Awake and alert in no acute distress. She is currently sitting up in a chair at the bedside. She is having difficulty breathing when lying in bed. She is maintaining O2 saturations in the 90s on 7 L high flow nasal cannula. She currently denies any worsening shortness of breath, cough or congestion. She denies any pain. Her family is at the bedside. Blood cultures revealed no growth. Bronchial wash cultures reveal no growth. Pathology is pending from biopsies. White count 13.8. Hemoglobin 11.1. Platelets 512. Sodium 130. Potassium 4.0. Bicarb 35. BUN 23. Creatinine 0.42. She remains on Symbicort, albuterol, Decadron. Heparin for DVT prophylaxis. Normal saline at [facility]. Antibiotics in the form of Zosyn. The patient is seen today 07/22/2023 in follow-up on the regular medical floor. She is sitting up in a chair. Awake and alert in no acute distress. Denies any worsening shortness of breath, cough or congestion. She is still on 7 high flow liters high flow nasal cannula to maintain O2 saturations in the 90s. Blood cultures revealed no growth. Bronchial wash cultures revealed no growth. Pathology still pending. White count 12.4. Hemoglobin 11.2. Platelets 539. Sodium 149. Potassium 3.9. Bicarb 35. BUN 23. Creatinine 0.44. Glucose 103. She is continued on Symbicort, albuterol, Decadron. Antibiotics in the form of Zosyn. The patient is seen today 07/23/2023 in follow-up on the regular medical floor. She is awake and alert in no acute distress. She is maintaining O2 saturations in the 90s on 5 L high flow nasal cannula. She denies any worsening shortness of breath, cough or congestion. Her oxygenation continues to improve. She may require home oxygen. Blood cultures revealed no growth. Bronchial wash cultures revealed no growth. Sodium 151. Potassium 3.9. Bicarb 36. BUN 20. Creatinine 0.4. She completed a course of antibiotics. She is on heparin for DVT prophylaxis. Continue on Symbicort and albuterol. Continued on a prednisone taper. The patient is seen today 07/24/2023 in follow-up on the regular medical floor. She is sitting up in a chair. Awake and alert in no acute distress. She is down to 4 L high flow nasal cannula maintaining O2 saturations in the 90s. She does desaturate to 88% and a brief walk on room air. Blood cultures revealed no growth. Bronchial wash cultures revealed no growth. Her lung biopsies did come back positive for small cell carcinoma. She is continued on Symbicort, albuterol, prednisone. Heparin for DVT prophylaxis. D5W at 75 ML's per hour. The patient is seen today 07/25/2023 in follow-up on the regular medical floor. She is awake and alert in no acute distress. Sitting up in a chair at the bedside. She is maintaining O2 saturations in the 90s on 4 L/m per nasal cannula. She is continued on Symbicort, prednisone and albuterol. Heparin for DVT prophylaxis. Prednisone taper. MRI of the brain revealed a small focus of enhancement in the left frontal lobe concerning for metastatic disease. No evidence of acute/subacute CVA. Nonspecific white matter changes. DT scan of the abdomen and pelvis revealed markedly generalized anasarca. No changes in the visualized right lung. Also extensive tumor infiltrating throughout the visualized right lower lobe. Pleural disease with moderate right pleural effus ion and pleural studding. Multiple hepatic metastases measuring up to 4.2 cm. Mild nodular thickening of the bilateral adrenal glands also suspicious. White count 13.2. Hemoglobin 11.7. Platelets 469. Sodium 141. Potassium 3.4. Bicarb 34. BUN 12. Creatinine 0.4. Glucose 126. The patient is seen today 08/05/2023 in follow-up on the regular medical floor. She is sitting up in a chair. Awake and alert in no acute distress. Maintaining O2 saturations in the 90s on 4 L/m per nasal cannula. No IV fluids. She denies any worsening shortness of breath, cough or congestion. White count 10.5. Hemoglobin 12.0. Platelets 435. Sodium 142. Potassium 3.8. Bicarb 34. BUN 8.8. Creatinine 0.3. Glucose 98. AST 49. ALT 42. She is continued on Symbicort and albuterol. Heparin for DVT prophylaxis. Initiated on Decadron 10 mg IV every 24 hours today. She will will be starting carboplatin and etoposide today per oncology. The patient is seen today 07/27/2023 in follow-up on the regular medical floor. She remains awake and alert in no acute distress. Maintaining O2 saturations in the 90s on 4 L/m per nasal cannula. Currently sitting up in a chair at the bedside. She did receive her first round of chemotherapy yesterday and including carboplatin and etoposide, remains on Decadron 10 mg IV daily. She denies any worsening shortness of breath, cough or congestion. No hemoptysis. Blood cultures revealed no growth. Bronchial wash cultures revealed no growth. White count 15.8. Hemoglobin 11.7. Platelets 389. Sodium 143. Potassium 4.4. Bicarb 32. BUN 14. Creatinine 0.4. Glucose 125. AST 57. ALT 58. LDH 408. Albumin 3.2. She remains on bronchodilators. Normal saline at 100 ML's per hour. Tolerating a regular diet. The patient is seen today 07/28/2023 in follow-up on the regular medical floor. She is sitting up in a chair. Awake and alert in no acute distress. She denies any worsening shortness of breath, cough or congestion. She is maintaining O2 saturations in the 90s on 4 L/m per nasal cannula. She has normal saline at 50 MLS per hour. She is continuing on her chemotherapy treatment. Remains on Decadron. Continued on Symbicort and albuterol. Heparin for DVT prophylaxis. The patient is seen today 07/29/2023 in follow-up on the regular medical floor. She is currently resting up in a chair. Denies any worsening shortness of br eath, cough or congestion. She continues to maintain good O2 saturation the 90s on 4 L/m per nasal cannula. She has normal saline at 50 MLS per hour. She completed her first course of chemotherapy yesterday. Plan is for discharge to subacute rehabilitation possibly tomorrow. Continued on bronchodilators. Heparin for DVT prophylaxis. Objective - Vital Signs Vital signs: Vital Signs Temp 97.9 F 07/29/23 08:00 Pulse 89 07/29/23 08:00 Resp 18 07/29/23 08:00 BP 138/79 07/29/23 08:00 Pulse Ox 97 07/29/23 08:00 FiO2 45 07/19/23 19:40 Intake & Output 07/28/23 07/29/23 07/29/23 18:59 06:59 18:59 Intake Total 1279 377 240 Output Total 500 Balance 1279 -123 240 Intake: Intake, IV Titration 1159 Amount Etoposide 180 mg In 509 Sodium Chloride 0.9% 500 ml 500 ml @ 509 mls/hr IV Q24H [facility] Rx#:[id number] Ondansetron 16 mg In 50 Sodium Chloride 0.9% 50 ml @ 232 mls/hr IVPB Q24H [facility] Rx#:[id number] Sodium Chloride 0.9% 1, 600 000 ml @ 50 mls/hr IV . Q20H [facility] Rx#:[id number] Oral 120 377 240 Output: Urine 500 Other: Voiding Method Bedside Commode Bedside Commode Diaper Diaper External Catheter # Voids 4 # Bowel Movements 1 - Exam GENERAL EXAM: Alert, very pleasant 63-year-old female, on 4 L nasal cannula, in no apparent distress. HEAD: Normocephalic. EYES: Normal reaction of pupils, equal size. NOSE: Clear with pink turbinates. THROAT: No erythema or exudates. NECK: No masses, no JVD. CHEST: No chest wall deformity. LUNGS: Equal air entry with diminished breath sounds throughout the right lung. Left lung is clear. CVS: S1 and S2 normal with no audible murmur, regular rhythm. ABDOMEN: No hepatosplenomegaly, normal bowel sounds, no guarding or rigidity. SPINE: No scoliosis or deformity SKIN: No rashes CENTRAL NERVOUS SYSTEM: No focal deficits, tone is normal in all 4 extremities. EXTREMITIES: There is no peripheral edema. No clubbing, no cyanosis. Peripheral pulses are intact. - Labs CBC & Chem 7: 07/28/23 06:00 07/28/23 06:00 Labs: Abnormal Lab Results - Last 24 Hours (Table) 07/28/23 07/28/23 Range/Units 06:00 06:00 WBC 15.04 H (4.50-10.00) X 10*3/uL RBC 3.90 L (4.10-5.20) X 10*6/uL Hgb 11.4 L (12.0-15.0) g/dL MCV 97.7 H (80.0-97.0) FL MCHC 29.9 L (32.0-37.0) g/dL Neutrophils # 13.88 H (1.80-7.70) X 10*3/uL Lymphocytes # 0.50 L (0.90-5.00) X 10*3/uL Eosinophils # 0 L (0.04-0.35) X 10*3/uL Carbon Dioxide 32.1 H (21.6-31.8) mmol/L Creatinine 0.4 L (0.6-1.5) mg/dL BUN/Creatinine Ratio 51.25 H (12.00-20.00) Ratio Total Bilirubin <0.2 L (0.3-1.2) mg/dL AST 51 H (13-35) U/L ALT 61 H (8-44) U/L Lactate Dehydrogenase 422 H (120-246) U/L Total Protein 6.1 L (6.2-8.2) g/dL Albumin 3.3 L (3.8-4.9) g/dL Albumin/Globulin Ratio 1.18 L (1.60-3.17) Ratio Assessment and Plan Assessment: Acute hypoxic and hypercapnic respiratory failure related to her underlying COPD, also related to her underlying lung mass and significant opacification of the right lung secondary to lung mass, and also related to her hilar adenopathy. This is all consistent with COPD and underlying bronchogenic carcinoma most likely squamous cell lung cancer. Bronchoscopy with biopsies performed on 07/17/2023. Pathology is positive for small cell carcinoma. MRI of the brain revealed a small focus of enhancement in the left frontal lobe concerning for metastatic disease. No evidence of acute/subacute CVA. Nonspecific white matter changes. DT scan of the abdomen and pelvis revealed markedly generalized anasarca. No changes in the visualized right lung. Also extensive tumor infiltrating throughout the visualized right lower lobe. Pleural disease with moderate right pleural effusion and pleural studding. Multiple hepatic metastases measuring up to 4.2 cm. Mild nodular thickening of the bilateral adrenal glands also suspicious. Initiated on carboplatin/etoposide 07/26/2023. Initiated on Decadron 10 mg IV daily. Completed on 07/28/2023 Hypernatremia, improved sodium 143 following previous hyponatremia corrected Postobstructive pneumonia involving the right lung area, completed Zosyn Chronic and ongoing tobacco dependence Coronary artery disease, prior stenting of the LAD Hypertension Hyperlipidemia Plan: The patient was seen and evaluated Medications reviewed Remains on oxygen at 4 L nasal cannula Completed carboplatin/etoposide 07/28/2023 Completed Decadron 10 mg IV daily x 3 Plan is for subacute rehabilitation at [facility] upon discharge This patient was seen independently by the nurse practitioner I have personally seen and examined the patient, performed the documentation and the assessment and plan as written. Number of minutes spent on the visit: 22.
[2023-07-29 10:13] LABS: ALT 54 U/L (8-44); AST 47 U/L (13-35); Albumin 3.2 g/dL (3.8-4.9); Albumin/Globulin Ratio 1.14 Ratio (1.60-3.17); Alkaline Phosphatase 76 U/L (41-126); Basophils # (A) 0.01 X 10*3/uL (0.00-0.10); Basophils % (A) 0.1 %; Blood Urea Nitrogen 17.6 mg/dL (9.0-27.0); Calcium 8.7 mg/dL (8.7-10.3); Chloride 102 mmol/L (96-109); Eosinophils # (A) 0 X 10*3/uL (0.04-0.35); Eosinophils % (A) 0 %; Globulin 2.8 g/dL (1.6-3.3); Glucose 98 mg/dL (70-110); HCT 39.3 % (37.2-46.3); HGB 11.9 g/dL (12.0-15.0); LDH 471 U/L (120-246); Lymphocytes # (A) 0.39 X 10*3/uL (0.90-5.00); Lymphocytes % (A) 3.1 %; MCH 29.8 pg (27.0-32.0); MCHC 30.3 g/dL (32.0-37.0); MCV 98.3 FL (80.0-97.0); Mean Platelet Volume 10.6 FL (9.5-12.2); Monocytes # (A) 0.31 X 10*3/uL (0.20-1.00); Monocytes % (A) 2.5 %; NRBC Per 100 WBC 0 X 10*3/uL (0.00-0.01); Neutrophils % (A) 93.9 %; Phosphorus 3.2 mg/dL (2.4-5.1); Platelet Count 367 X 10*3/uL (140-440); Potassium 4.8 mmol/L (3.5-5.5); RDW 14.5 % (11.5-14.5); Sodium 143 mmol/L (135-145); Total Bilirubin 0.2 mg/dL (0.3-1.2); WBC 12.56 X 10*3/uL (4.50-10.00)
--- NOTE | 2023-07-29 10:47 | P.PN ---
Subjective This is a pleasant 63 years old female with past medical history of Coronary Artery Disease s/p stenting, Heart Failure, GERD/Reflux, Hyperlipidemia, Hypertension, her PCP is Dr. Navarrete and manager of financial Dr. Neff for her history of coronary artery disease status post stent Patient presents because of worsening dyspnea over 3 days especially with exertion she has to stop to catch up with her breath. No significant chest pain and no significant coughing No other urinary GI symptoms. No dizziness weakness or numbness. She quit smoking about 2 months ago, lately she used to smoke 5 cigarettes per day. No alcohol or illicit drugs. She is hemodynamically stable, afebrile saturating well on 2 L oxygen via nasal cannula Labs showed mild leukocytosis of 13 and 14,000. Sodium markedly low at 1.8 and 131. ProBNP is low at 178. Troponin were unremarkable. Labs including CBC, BMP liver enzymes are unremarkable EKG showing normal sinus rhythm at 85 CT of the lung showing normal pulmonary embolism and rule out right pleural effusion with right lung consolidation suspicious for a mass. 07/25/2023 Patient seen in follow-up today and did undergo MRI of the brain along with CT of the abdomen and pelvis for further staging and there are multiple concerns of metastatic lesions including a lesion noted in the brain with oncology and radiation oncology following closely. Plan is to initiate inpatient chemotherapy. Patient and family are agreeable to proceed with this and patient is being transferred down to [address] to undergo chemo therapy. Radiation oncology will follow as well. Patient continues on 4 L via nasal cannula and extremely weak recommending physical therapy daily. Patient reports tolerating diet. Patient continues on D5 water and sodium levels are improving we'll discontinue fluids and follow-up with repeat labs. 07/26/2023 Patient seen and evaluated in follow-up today currently scheduled to undergo chemotherapy initiation today. Patient with no significant worsening shortness of breath and reports feeling somewhat improved today. Patient denies any pain and denies nausea or vomiting and has been tolerating diet. Patient encouraged to increase activity as tolerated and continue working with physical therapy daily as well as increased oral intake. We'll follow up on repeat labs and continue to monitor closely 07/27/2023 Patient sitting in chair, comfortable, breathing quietly, much better than 2 weeks ago when I saw her. No cough and no chest pain no other new complaints. 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 She's getting normal saline 100 mL per hour Her pneumonia resolved and currently patient monitor while off antibiotic 07/28/2023 Patient tolerated chemotherapy well She is doing well, no new complaints. Patient finished chemotherapy today and oncology team and treated her for discharge to subacute rehab, she needs to follow up outpatient for second cycle of chemotherapy Patient becoming medically stable, pending placement most likely early next week 07/29/2023 Patient finished her chemotherapy yesterday She still complaining of from exertional dyspnea significantly better than presentation. She has exertional dyspnea, she was is, at bedside. She will finish her chemotherapy yesterday and dexamethasone was stopped, her leukocytosis is better today down to 12,000. She was normal sinus 50 per hour, she has significant bilateral leg swelling. DC normal saline and given Lasix IV 2 days. Plan for subacute rehab upon discharge possibly tomorrow Objective - Vital Signs Vital signs: Vital Signs Temp 97.9 F 07/29/23 08:00 Pulse 89 07/29/23 08:00 Resp 18 07/29/23 08:00 BP 138/79 07/29/23 08:00 Pulse Ox 97 07/29/23 08:00 FiO2 45 07/19/23 19:40 Intake & Output 07/28/23 07/29/23 07/29/23 18:59 06:59 18:59 Intake Total 1279 377 240 Output Total 500 Balance 1279 -123 240 Intake: Intake, IV Titration 1159 Amount Etoposide 180 mg In 509 Sodium Chloride 0.9% 500 ml 500 ml @ 509 mls/hr IV Q24H [facility] Rx#:[id number] Ondansetron 16 mg In 50 Sodium Chloride 0.9% 50 ml @ 232 mls/hr IVPB Q24H [facility] Rx#:[id number] Sodium Chloride 0.9% 1, 600 000 ml @ 50 mls/hr IV . Q20H [facility] Rx#:[id number] Oral 120 377 240 Output: Urine 500 Other: Voiding Method Bedside Commode Bedside Commode Diaper Diaper External Catheter # Voids 4 # Bowel Movements 1 - Exam GENERAL: The patient is alert and oriented x3, not in any acute distress. Well developed, well nourished. HEENT: Pupils are round and equally reacting to light. EOMI. No scleral icterus. No conjunctival pallor. Normocephalic, atraumatic. No pharyngeal erythema. No thyromegaly. CARDIOVASCULAR: S1 and S2 present. No murmurs, rubs, or gallops. -PULMONARY: Chest is clear to auscultation, no wheezing , no crackles. Decrease d breath sounds on the right lung ABDOMEN: Soft, nontender, nondistended, normoactive bowel sounds. No palpable organomegaly. MUSCULOSKELETAL: No joint swelling or deformity. EXTREMITIES: No cyanosis, clubbing, or pedal edema. NEUROLOGICAL: Gross neurological examination did not reveal any focal deficits. SKIN: No rashes. no petechiae. - Labs CBC & Chem 7: 07/29/23 05:18 07/29/23 05:18 Labs: Abnormal Lab Results - Last 24 Hours (Table) 07/28/23 07/28/23 07/29/23 Range/Units 06:00 06:00 05:18 WBC 15.04 H 12.56 H (4.50-10.00) X 10*3/uL RBC 3.90 L 4.00 L (4.10-5.20) X 10*6/uL Hgb 11.4 L 11.9 L (12.0-15.0) g/dL MCV 97.7 H 98.3 H (80.0-97.0) FL MCHC 29.9 L 30.3 L (32.0-37.0) g/dL Neutrophils # 13.88 H 11.80 H (1.80-7.70) X 10*3/uL Lymphocytes # 0.50 L 0.39 L (0.90-5.00) X 10*3/uL Eosinophils # 0 L 0 L (0.04-0.35) X 10*3/uL Carbon Dioxide 32.1 H (21.6-31.8) mmol/L Creatinine 0.4 L (0.6-1.5) mg/dL BUN/Creatinine Ratio 51.25 H (12.00-20.00) Ratio Total Bilirubin <0.2 L (0.3-1.2) mg/dL AST 51 H (13-35) U/L ALT 61 H (8-44) U/L Lactate Dehydrogenase 422 H (120-246) U/L Total Protein 6.1 L (6.2-8.2) g/dL Albumin 3.3 L (3.8-4.9) g/dL Albumin/Globulin Ratio 1.18 L (1.60-3.17) Ratio 07/29/23 Range/Units 05:18 WBC (4.50-10.00) X 10*3/uL RBC (4.10-5.20) X 10*6/uL Hgb (12.0-15.0) g/dL MCV (80.0-97.0) FL MCHC (32.0-37.0) g/dL Neutrophils # (1.80-7.70) X 10*3/uL Lymphocytes # (0.90-5.00) X 10*3/uL Eosinophils # (0.04-0.35) X 10*3/uL Carbon Dioxide 35.0 H (21.6-31.8) mmol/L Creatinine 0.4 L (0.6-1.5) mg/dL BUN/Creatinine Ratio 44.00 H (12.00-20.00) Ratio Total Bilirubin 0.2 L (0.3-1.2) mg/dL AST 47 H (13-35) U/L ALT 54 H (8-44) U/L Lactate Dehydrogenase 471 H (120-246) U/L Total Protein 6.0 L (6.2-8.2) g/dL Albumin 3.2 L (3.8-4.9) g/dL Albumin/Globulin Ratio 1.14 L (1.60-3.17) Ratio Assessment and Plan Assessment: right lung mass with biopsy showing small cell lung cancer, undergoing chemotherapy Mediastinal lymphadenopathy Mild hypernatremia , resolved post obstructive pneumonia, finished antibiotics Hypertension Hyperlipidemia Chronic heart failure History of coronary artery disease status post stenting Plan: Continue with a breathing treatment dc iv hydration. Start Lasix, short course Pulmonary and oncology consult Continue with chemotherapy per oncology team dexamethasone was discontinued Labs and medication were reviewed.. Continue same treatment. Continue with symptomatic treatment. Resume home medication. Monitor labs and vitals. DVT and GI prophylaxis. Further recommendations as per clinical course of the patient DVT prophylaxis: Subcutaneous heparin GI Prophylaxis: Pepcid PT/OT: eunice Prognosis is guarded
[2023-07-29] MEDS: FUROSEMIDE 10 MG/ML 4 ML VIAL IV SCH ×2 (11:25→21:10)
[2023-07-29] MEDS: ALPRAZolam 0.25 MG TAB PO SCH (21:10)
[2023-07-30] MEDS: SYMBICORT 160-4.5 MCG INHALER INHALATION SCH ×2 (07:15→21:03)
[2023-07-30] MEDS: ALBUTEROL NEBULIZED 2.5 MG/3 ML INHALATION SCH ×4 (07:15→21:03)
[2023-07-30] MEDS: carvediloL 12.5 MG TAB PO SCH ×2 (08:46→17:52)
[2023-07-30] MEDS: FUROSEMIDE 10 MG/ML 4 ML VIAL IV SCH ×2 (08:46→20:18)
[2023-07-30] MEDS: HEPARIN SODIUM,PORCINE 5,000 UNIT/ML 1 ML VIAL SQ SCH ×2 (08:46→20:18)
[2023-07-30 11:12] LABS: Calcium 8.9 mg/dL (8.7-10.3); Carbon Dioxide 38.8 mmol/L (21.6-31.8); Chloride 96 mmol/L (96-109); Glucose 79 mg/dL (70-110); Potassium 4.4 mmol/L (3.5-5.5); Sodium 142 mmol/L (135-145)
--- NOTE | 2023-07-30 14:15 | P.PN ---
Subjective Progress Note Date: 07/30/23 This is a 63-year-old female patient, a chronic smoker started age of 18 and she quit smoking approximately 2 months ago. She presented emergency department was a 3 days history of shortness of breath. CAT scan of the chest was done in the emergency department and the patient was found to have extensive mediastinal lymphadenopathy and this is present in the right paratracheal area, right hilum, subcarinal area and the patient has mass effect with significant narrowing of the distal right main stem bronchus and bronchus intermedius and airways completely occluded past the distal right main stem. As such, the patient has extensive atelectatic changes in the right middle lobe and the right lower lobe with a small right-sided pleural effusion. Presentation is highly suspicious for small cell lung cancer. No evidence of any pulmonary embolism. The patient has of the discomfort of 14.2, sodium is at 131 initially at 128 probably related to SIADH. Troponins are negative. Pro-calcitonin level is at 12.8. She is afebrile. Hemodynamically stable. Pulse ox is 95% liters of oxygen by nasal cannula. No hemoptysis. 20 pounds weight loss. The patient is seen today 07/16/2023 in follow-up on the regular medical floor. She is awake and alert in no acute distress. She is maintaining good O2 saturations in the mid 90s on 2 L/m per nasal cannula. She's afebrile. Hemodynamically stable. No new labs today. She is continued on Zosyn. Heparin for DVT prophylaxis. Normal saline at 75 ML's per hour. Based on the above mentioned computed tomography scan findings we will plan for bronchoscopy and probable biopsies tomorrow. The patient is seen today 07/17/2023 in follow-up on the regular medical floor. She is currently sitting up in a chair at the bedside. Awake and alert in no acute distress. She is maintaining O2 saturations in the 90s on 3 L/m per nasal cannula. She's been afebrile. Hemodynamically stable. Blood cultures reveal no growth. White count 12.8. Hemoglobin 11.3. Platelets 517. Sodium 140. Potassium 4.1. Bicarb 28. BUN 17. Creatinine 0.6. Glucose 104. Remains on antibiotics in form of Zosyn. Plan is for bronchoscopy with biopsies today 07/17/23 Patient underwent bronchoscopy and there was evidence of complete obstruction of the right mainstem bronchus and right upper lobe bronchus, there was evidence of endobronchial tumor, cauliflower-shaped tumor involving the enrike, right upper lobe bronchus, right mainstem bronchus, and there was no visualization of the right upper lobe or right middle lobe or right lower lobe. Procedure was done, patient underwent multiple biopsies of the endobronchial tumor, brushings were done, au needle aspiration of 4R lymph node done. The procedure was well- tolerated, however the patient was extubated in the recovery room, however she had to be reintubated because she was acting confused and her O2 saturations were running low. Patient was placed back on mechanical ventilation with assist control rate of 24, tidal volume to 50, FiO2 on the percent, PEEP of 5. Patient will be transferred to the ICU, she would be kept on mechanical ventilation tonight, and will likely address weaning and extubation to BiPAP in the next 24 hours. Patient does have significant underlying COPD and I believe extubating the patient to BiPAP would be reasonable. In the meantime we will support the patient on mechanical ventilation, and we will address weaning and extubation in the next 24 hours. Patient was reevaluated today on 07/18/23, patient underwent bronchoscopy and multiple endobronchial biopsies of a large tumor completely occluding the right mainstem bronchus, right upper lobe, and she had to transfer enrike needle aspiration of lymph nodes. Patient was extubated after the procedure however she did not tolerate the extubation and she had to be reintubated by MINE ENGINEERING MANAGER. Patient was admitted to the ICU overnight, and I'm seeing her today, patient remains intubated and mechanically ventilated. She is on assist control rate of 26 tidal volume to 50 FiO2 45% and PEEP of 5 ABG showed a pO2 of 79 pCO2 50 pH of 7.40. Chest x-ray continues to show complete opacification of the right lung, left lung seems to be relatively clear. Patient is on propofol at 35 mcg/kg/m she is also on IV fluid at 100 mL per hour. After evaluating the patient, I recommended stopping propofol, patient was given a trial of pressure support of 12 and CPAP, and she was tolerating the weaning well. And I ext ubated the patient to BiPAP, 12//40%, and I will follow along next to the patient evaluating her pulmonary status during this transition from mechanical ventilation to BiPAP. Patient seemed to do better on BiPAP, hence we'll keep her on BiPAP today, and we will continue bronchodilators, we will continue her IV fluids, and awaiting final pathology from her recent endobronchial biopsies. Overall prognosis considering the findings on the bronchoscopy yesterday, is extremely poor She was seen and examined today on 07/19/23, patient remains in the ICU, she was extubated yesterday successfully, presently on nasal cannula at 8 L/m, however she was on BiPAP at night 12/6/45%. O2 saturations in the mid 90s I cut her down to 5 L nasal cannula, patient did not sleep well last night. IV fluid is cut down to KVO, patient is eating and drinking pathology from the bronchoscopy is still pending however in the meantime I'm recommending consultation with oncology and with radiation oncology. Chest x-ray continues to show complete opacification of the right hemithorax. No infiltrate in the left lung. WBC count is 15.7 hemoglobin is 11.1, basic metabolic profile is normal, renal profile is normal Patient was seen and examined today on 07/20/23, patient remains in the ICU, she is supposedly overflow, but overnight she developed worsening shortness of breath and she had to be placed on BiPAP, she remains on BiPAP this morning. She is on 12/6/45%, remains on Zosyn, remains on bronchodilators, and today I went ahead and added Decadron. Patient was seen by oncology, and again we are waiting for the tissue diagnosis/biopsy. Overall clinical picture does not look very promising, patient is marginal at best. And I did discuss the CODE STATUS with the patient yesterday, and she definitely wants to be DO NOT RESUSCITATE CODE STATUS. I will try to reach her son Christophe sometime later today and discussed her condition with him also. WBC count is 14.1 hemoglobin is 10.8, basic metabolic profile is normal sodium is up to 145. And renal profile is normal The patient is seen today 07/21/2023 in follow-up on the regular medical floor. Awake and alert in no acute distress. She is currently sitting up in a chair at the bedside. She is having difficulty breathing when lying in bed. She is maintaining O2 saturations in the 90s on 7 L high flow nasal cannula. She currently denies any worsening shortness of breath, cough or congestion. She denies any pain. Her family is at the bedside. Blood cultures revealed no growth. Bronchial wash cultures reveal no growth. Pathology is pending from biopsies. White count 13.8. Hemoglobin 11.1. Platelets 512. Sodium 130. Potassium 4.0. Bicarb 35. BUN 23. Creatinine 0.42. She remains on Symbicort, albuterol, Decadron. Heparin for DVT prophylaxis. Normal saline at O. Antibiotics in the form of Zosyn. The patient is seen today 07/22/2023 in follow-up on the regular medical floor. She is sitting up in a chair. Awake and alert in no acute distress. Denies any worsening shortness of breath, cough or congestion. She is still on 7 high flow liters high flow nasal cannula to maintain O2 saturations in the 90s. Blood cultures revealed no growth. Bronchial wash cultures revealed no growth. Pathology still pending. White count 12.4. Hemoglobin 11.2. Platelets 539. Sodium 149. Potassium 3.9. Bicarb 35. BUN 23. Creatinine 0.44. Glucose 103. She is continued on Symbicort, albuterol, Decadron. Antibiotics in the form of Zosyn. The patient is seen today 07/23/2023 in follow-up on the regular medical floor. She is awake and alert in no acute distress. She is maintaining O2 saturations in the 90s on 5 L high flow nasal cannula. She denies any worsening shortness of breath, cough or congestion. Her oxygenation continues to improve. She may require home oxygen. Blood cultures revealed no growth. Bronchial wash cultures revealed no growth. Sodium 151. Potassium 3.9. Bicarb 36. BUN 20. Creatinine 0.4. She completed a course of antibiotics. She is on heparin for DVT prophylaxis. Continue on Symbicort and albuterol. Continued on a prednisone taper. The patient is seen today 07/24/2023 in follow-up on the regular medical floor. She is sitting up in a chair. Awake and alert in no acute distress. She is down to 4 L high flow nasal cannula maintaining O2 saturations in the 90s. She does desaturate to 88% and a brief walk on room air. Blood cultures revealed no growth. Bronchial wash cultures revealed no growth. Her lung biopsies did come back positive for small cell carcinoma. She is continued on Symbicort, albuterol, prednisone. Heparin for DVT prophylaxis. D5W at 75 ML's per hour. The patient is seen today 07/25/2023 in follow-up on the regular medical floor. She is awake and alert in no acute distress. Sitting up in a chair at the bedside. She is maintaining O2 saturations in the 90s on 4 L/m per nasal cannula. She is continued on Symbicort, prednisone and albuterol. Heparin for DVT prophylaxis. Prednisone taper. MRI of the brain revealed a small focus of enhancement in the left frontal lobe concerning for metastatic disease. No evidence of acute/subacute CVA. Nonspecific white matter changes. DT scan of the abdomen and pelvis revealed markedly generalized anasarca. No changes in the visualized right lung. Also extensive tumor infiltrating throughout the visualized right lower lobe. Pleural disease with moderate right pleural eff usion and pleural studding. Multiple hepatic metastases measuring up to 4.2 cm. Mild nodular thickening of the bilateral adrenal glands also suspicious. White count 13.2. Hemoglobin 11.7. Platelets 469. Sodium 141. Potassium 3.4. Bicarb 34. BUN 12. Creatinine 0.4. Glucose 126. The patient is seen today 08/05/2023 in follow-up on the regular medical floor. She is sitting up in a chair. Awake and alert in no acute distress. Maintaining O2 saturations in the 90s on 4 L/m per nasal cannula. No IV fluids. She denies any worsening shortness of breath, cough or congestion. White count 10.5. Hemoglobin 12.0. Platelets 435. Sodium 142. Potassium 3.8. Bicarb 34. BUN 8.8. Creatinine 0.3. Glucose 98. AST 49. ALT 42. She is continued on Symbicort and albuterol. Heparin for DVT prophylaxis. Initiated on Decadron 10 mg IV every 24 hours today. She will will be starting carboplatin and etoposide today per oncology. The patient is seen today 07/27/2023 in follow-up on the regular medical floor. She remains awake and alert in no acute distress. Maintaining O2 saturations in the 90s on 4 L/m per nasal cannula. Currently sitting up in a chair at the bedside. She did receive her first round of chemotherapy yesterday and including carboplatin and etoposide, remains on Decadron 10 mg IV daily. She denies any worsening shortness of breath, cough or congestion. No hemoptysis. Blood cultures revealed no growth. Bronchial wash cultures revealed no growth. White count 15.8. Hemoglobin 11.7. Platelets 389. Sodium 143. Potassium 4.4. Bicarb 32. BUN 14. Creatinine 0.4. Glucose 125. AST 57. ALT 58. LDH 408. Albumin 3.2. She remains on bronchodilators. Normal saline at 100 ML's per hour. Tolerating a regular diet. The patient is seen today 07/28/2023 in follow-up on the regular medical floor. She is sitting up in a chair. Awake and alert in no acute distress. She denies any worsening shortness of breath, cough or congestion. She is maintaining O2 saturations in the 90s on 4 L/m per nasal cannula. She has normal saline at 50 MLS per hour. She is continuing on her chemotherapy treatment. Remains on Decadron. Continued on Symbicort and albuterol. Heparin for DVT prophylaxis. The patient is seen today 07/29/2023 in follow-up on the regular medical floor. She is currently resting up in a chair. Denies any worsening shortness of breath, cough or congestion. She continues to maintain good O2 saturation the 90s on 4 L/m per nasal cannula. She has normal saline at 50 MLS per hour. She completed her first course of chemotherapy yesterday. Plan is for discharge to subacute rehabilitation possibly tomorrow. Continued on bronchodilators. Heparin for DVT prophylaxis. on 07/30/2023, the patient is calm and comfortable. She remains on oxygen at 4 L nasal cannula. She is quite weak and debilitated. Her most recent chest x- ray shows complete the investigation of the right lung and the patient was completed her systemic chemotherapy regarding her metastatic small cell lung cancer. No chest pain. No altered mentation. As mentioned earlier, the patient will need further follow-up with medical oncology and radiation oncology.the patient has completed systemic chemotherapy with carboplatinum and SCREENER OPERATOR-16.she is quite debilitated. She has no neurologic deficits. No altered mentation.. MRI brain revealed small focus, 5 mm enhancement in the left frontal lobe. No evidence for acute/subacute CVA. Nonspecific white matter changes. CT abdomen pelvis showed known changes in the visualized right lung. Possible extensive tumor infiltrating throughout the visualized right lower lobe. Pleural disease with moderate right pleural effusion and pleural studding. Multiple hepatic metastases measuring up to 4.2 cm and mild nodular thickening of bilateral adrenal glands. Findings were reviewed with pt and that this is consistent with extensive stage small cell carcinoma. The sodium is at 142, BUN is at 19 with a creatinine of 0.4 Objective - Vital Signs Vital signs: Vital Signs Temp 97.7 F 07/30/23 07:39 Pulse 74 07/30/23 07:39 Resp 19 07/30/23 07:39 BP 159/79 07/30/23 07:39 Pulse Ox 97 07/30/23 07:39 FiO2 45 07/19/23 19:40 Intake & Output 07/29/23 07/30/23 07/30/23 18:59 06:59 18:59 Intake Total 1300 600 Output Total 4000 2850 550 Balance -2700 -2250 -550 Intake: Intake, IV Titration 200 Amount Sodium Chloride 0.9% 1, 200 000 ml @ 50 mls/hr IV . Q20H SHARMAINE Rx#:[id number] Oral 1100 600 Output: Urine 4000 2850 550 Other: Voiding Method Bedside Commode Bedside Commode Bedside Commode Diaper Diaper Diaper External Catheter External Catheter External Catheter # Voids 3 - Exam GENERAL EXAM: Alert, very pleasant 63-year-old female, on 4 L nasal cannula, in no apparent distress. HEAD: Normocephalic. EYES: Normal reaction of pupils, equal size. NOSE: Clear with pink turbinates. THROAT: No erythema or exudates. NECK: No masses, no JVD. CHEST: No chest wall deformity. LUNGS: Equal air entry with diminished breath sounds throughout the right lung. Left lung is clear. CVS: S1 and S2 normal with no audible murmur, regular rhythm. ABDOMEN: No hepatosplenomegaly, normal bowel sounds, no guarding or rigidity. SPINE: No scoliosis or deformity SKIN: No rashes CENTRAL NERVOUS SYSTEM: No focal deficits, tone is normal in all 4 extremities. EXTREMITIES: There is no peripheral edema. No clubbing, no cyanosis. Peripheral pulses are intact. - Labs CBC & Chem 7: 07/29/23 05:18 07/30/23 06:26 Labs: Abnormal Lab Results - Last 24 Hours (Table) 07/30/23 Range/Units 06:26 Carbon Dioxide 38.8 H (21.6-31.8) mmol/L Creatinine 0.4 L (0.6-1.5) mg/dL BUN/Creatinine Ratio 47.50 H (12.00-20.00) Ratio Assessment and Plan Plan: Acute hypoxic and hypercapnic respiratory failure related to her underlying COPD, also related to her underlying lung mass and significant opacification of the right lung secondary to lung mass, and also related to her hilar adenopathy. This is all consistent with COPD and underlying bronchogenic carcinoma most likely squamous cell lung cancer. Bronchoscopy with biopsies performed on 07/17/2023. Pathology is positive for small cell carcinoma. MRI of the brain revealed a small focus of enhancement in the left frontal lobe concerning for metastatic disease. No evidence of acute/subacute CVA. Nonspecific white matter changes. DT scan of the abdomen and pelvis revealed markedly generalized anasarca. No changes in the visualized right lung. Also extensive tumor infiltrating throughout the visualized right lower lobe. Pleural disease with moderate right pleural effusion and pleural studding. Multiple hepatic metastases measuring up to 4.2 cm. Mild nodular thickening of the bilateral a drenal glands also suspicious. Initiated on carboplatin/etoposide 07/26/2023. Initiated on Decadron 10 mg IV daily. Completed on 07/28/2023. completely opacified right lung due to endobronchial tumor with a small right- sided pleural effusion. Currently on 4 L of O2 nasal cannula Hypernatremia, improved sodium 143 following previous hyponatremia corrected Postobstructive pneumonia involving the right lung area, completed Zosyn Chronic and ongoing tobacco dependence Coronary artery disease, prior stenting of the LAD Hypertension Hyperlipidemia Plan: The patientstable for discharge Remains on oxygen at 4 L nasal cannula Completed carboplatin/etoposide 07/28/2023 Completed Decadron 10 mg IV daily x 3 Plan is for subacute rehabilitation at [facility] upon discharge she will need to follow-up with medical oncology and radiation oncology We'll follow up on outpatient basis
--- NOTE | 2023-07-30 18:53 | P.PN ---
Subjective This is a pleasant 63 years old female with past medical history of Coronary Artery Disease s/p stenting, Heart Failure, GERD/Reflux, Hyperlipidemia, Hypertension, her PCP is Dr. Navarrete and communications manager Dr. Neff for her history of coronary artery disease status post stent Patient presents because of worsening dyspnea over 3 days especially with exertion she has to stop to catch up with her breath. No significant chest pain and no significant coughing No other urinary GI symptoms. No dizziness weakness or numbness. She quit smoking about 2 months ago, lately she used to smoke 5 cigarettes per day. No alcohol or illicit drugs. She is hemodynamically stable, afebrile saturating well on 2 L oxygen via nasal cannula Labs showed mild leukocytosis of 13 and 14,000. Sodium markedly low at 1.8 and 131. ProBNP is low at 178. Troponin were unremarkable. Labs including CBC, BMP liver enzymes are unremarkable EKG showing normal sinus rhythm at 85 CT of the lung showing normal pulmonary embolism and rule out right pleural effusion with right lung consolidation suspicious for a mass. 07/25/2023 Patient seen in follow-up today and did undergo MRI of the brain along with CT of the abdomen and pelvis for further staging and there are multiple concerns of metastatic lesions including a lesion noted in the brain with oncology and radiation oncology following closely. Plan is to initiate inpatient chemotherapy. Patient and family are agreeable to proceed with this and patient is being transferred down to [address] to undergo chemo therapy. Radiation oncology will follow as well. Patient continues on 4 L via nasal cannula and extremely weak recommending physical therapy daily. Patient reports tolerating diet. Patient continues on D5 water and sodium levels are improving we'll discontinue fluids and follow-up with repeat labs. 07/26/2023 Patient seen and evaluated in follow-up today currently scheduled to undergo chemotherapy initiation today. Patient with no significant worsening shortness of breath and reports feeling somewhat improved today. Patient denies any pain and denies nausea or vomiting and has been tolerating diet. Patient encouraged to increase activity as tolerated and continue working with physical therapy daily as well as increased oral intake. We'll follow up on repeat labs and continue to monitor closely 07/27/2023 Patient sitting in chair, comfortable, breathing quietly, much better than 2 weeks ago when I saw her. No cough and no chest pain no other new complaints. 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 She's getting normal saline 100 mL per hour Her pneumonia resolved and currently patient monitor while off antibiotic 07/28/2023 Patient tolerated chemotherapy well She is doing well, no new complaints. Patient finished chemotherapy today and oncology team and treated her for discharge to subacute rehab, she needs to follow up outpatient for second cycle of chemotherapy Patient becoming medically stable, pending placement most likely early next week 07/29/2023 Patient finished her chemotherapy yesterday She still complaining of from exertional dyspnea significantly better than presentation. She has exertional dyspnea, she was is, at bedside. She will finish her chemotherapy yesterday and dexamethasone was stopped, her leukocytosis is better today down to 12,000. She was normal sinus 50 per hour, she has significant bilateral leg swelling. DC normal saline and given Lasix IV 2 days. Plan for subacute rehab upon discharge possibly tomorrow 07/30/2023 Patient lives bed comfortable no new complaints Vital stable, leukocytosis to trending down after discontinued her Decadron Patient finished 3 days of chemotherapy with carboplatin/etoposide Patient on IV Lasix 40 mg for 2 days for leg swelling while she was on IV fluid during chemotherapy Patient was cleared for discharge by pulmonary and oncology service. Patient medically stable for discharge to rehab pending placement and prior authorization Objective - Vital Signs Vital signs: Vital Signs Temp 97.7 F 07/30/23 07:39 Pulse 74 07/30/23 07:39 Resp 19 07/30/23 07:39 BP 159/79 07/30/23 07:39 Pulse Ox 97 07/30/23 07:39 FiO2 45 07/19/23 19:40 Intake & Output 07/29/23 07/30/23 07/30/23 18:59 06:59 18:59 Intake Total 1300 600 Output Total 4000 2850 550 Balance -2700 -2250 -550 Intake: Intake, IV Titration 200 Amount Sodium Chloride 0.9% 1, 200 000 ml @ 50 mls/hr IV . Q20H [facility] Rx#:[id number] Oral 1100 600 Output: Urine 4000 2850 550 Other: Voiding Method Bedside Commode Bedside Commode Bedside Commode Diaper Diaper Diaper External Catheter External Catheter External Catheter # Voids 3 - Exam GENERAL: The patient is alert and oriented x3, not in any acute distress. Well developed, well nourished. HEENT: Pupils are round and equally reacting to light. EOMI. No scleral icterus. No conjunctival pallor. Normocephalic, atraumatic. No pharyngeal erythema. No thyromegaly. CARDIOVASCULAR: S1 and S2 present. No murmurs, rubs, or gallops. -PULMONARY: Chest is clear to auscultation, no wheezing , no crackles. Decreased breath sounds on the right lung ABDOMEN: Soft, nontender, nondistended, normoactive bowel sounds. No palpable organomegaly. MUSCULOSKELETAL: No joint swelling or deformity. EXTREMITIES: No cyanosis, clubbing, or pedal edema. NEUROLOGICAL: Gross neurological examination did not reveal any focal deficits. SKIN: No rashes. no petechiae. - Labs CBC & Chem 7: 07/29/23 05:18 07/30/23 06:26 Labs: Abnormal Lab Results - Last 24 Hours (Table) 07/30/23 Range/Units 06:26 Carbon Dioxide 38.8 H (21.6-31.8) mmol/L Creatinine 0.4 L (0.6-1.5) mg/dL BUN/Creatinine Ratio 47.50 H (12.00-20.00) Ratio Assessment and Plan Assessment: right lung mass with biopsy showing small cell lung cancer, undergoing ch emotherapy Mediastinal lymphadenopathy Mild hypernatremia , resolved post obstructive pneumonia, finished antibiotics Hypertension Hyperlipidemia Chronic heart failure History of coronary artery disease status post stenting Plan: Continue with a breathing treatment dc iv hydration. Start Lasix, short course Pulmonary and oncology consult, cleared the patient for discharge Continue with chemotherapy per oncology team as an outpatient Labs and medication were reviewed.. Continue same treatment. Continue with symptomatic treatment. Resume home medication. Monitor labs and vitals. DVT and GI prophylaxis. Further recommendations as per clinical course of the patient DVT prophylaxis: Subcutaneous heparin GI Prophylaxis: Pepcid PT/OT: eunice Prognosis is guarded The stable for discharge pending placement
--- NOTE | 2023-07-30 19:51 | P.PN ---
Subjective Progress Note Date: 07/30/23 Principal diagnosis: Metastatic small cell lung cancer, SVC syndrome In follow-up today patient reports feeling pretty good, denies any fevers, nausea or vomiting. She is tolerating a soft diet. No unusual chest pain or shortness of breath. Lower extremity swelling is improved on Lasix. She believes she is going to [facility] [place] for rehab. Objective - Vital Signs Vital signs: Vital Signs Temp 97.7 F 07/30/23 12:40 Pulse 76 07/30/23 12:40 Resp 20 07/30/23 12:40 BP 129/76 07/30/23 12:40 Pulse Ox 97 07/30/23 12:40 FiO2 45 07/19/23 19:40 Intake & Output 07/29/23 07/30/23 07/30/23 18:59 06:59 18:59 Intake Total 1300 600 Output Total 4000 2850 550 Balance -2700 -2250 -550 Intake: Intake, IV Titration 200 Amount Sodium Chloride 0.9% 1, 200 000 ml @ 50 mls/hr IV . Q20H [facility] Rx#:[id number] Oral 1100 600 Output: Urine 4000 2850 550 Other: Voiding Method Bedside Commode Bedside Commode Bedside Commode Diaper Diaper Diaper External Catheter External Catheter External Catheter # Voids 3 - Constitutional General appearance: Present: average body habitus, cooperative, no acute distress - EENT Eyes: Present: anicteric sclerae, EOMI ENT: Present: hearing grossly normal, normal oropharynx - Respiratory Respiratory: right: diminished, left: CTA - Cardiovascular Rhythm: regular Heart sounds: normal: S1, S2 - Peripheral edema leg Peripheral Edema: bilateral: 1+, Pitting - Gastrointestinal General gastrointestinal: Present: normal bowel sounds, soft. Absent: absent bowel sounds, decreased bowel sounds, distended, hepatomegaly, hyperactive bowel sounds, organomegaly, rigid, scaphoid, splenomegaly, tenderness, umbilical hernia, ventral hernia - Neurologic Neurologic: Present: CNII-XII intact - Musculoskeletal Musculoskeletal: Present: generalized weakness - Psychiatric Psychiatric: Present: A&O x's 3, appropriate affect, intact judgment & insight - Labs CBC & Chem 7: 07/29/23 05:18 07/30/23 06:26 Labs: Abnormal Lab Results - Last 24 Hours (Table) 07/30/23 Range/Units 06:26 Carbon Dioxide 38.8 H (21.6-31.8) mmol/L Creatinine 0.4 L (0.6-1.5) mg/dL BUN/Creatinine Ratio 47.50 H (12.00-20.00) Ratio Assessment and Plan (1) Pleural effusion, right Current Visit: Yes Status: Acute Code(s): J90 - PLEURAL EFFUSION, NOT ELSEWHERE CLASSIFIED SNOMED Code(s): 55723587 (2) Small cell lung carcinoma Current Visit: Yes Status: Acute Priority: High Code(s): C34.90 - MALIGNANT NEOPLASM OF UNSP PART OF UNSP BRONCHUS OR LUNG SNOMED Code(s): 642925832 Plan: New diagnosis SCLC, stage IV-liver, possible adrenal involvement, 5mm brain lesion -S/P 1st cycle of carbo/[employer], tolerated overall well, no immediate side effects reported -Plan will be cont on chemo-next cycle would be due in 3 weeks. -Treatment will cont on schedule as long as pt is out of rehab -F/U with Rad Oncafter rehab Generalized weakness -2/2 above -Pt reports she is agreeable to rehab. This should help pt get stronger to tolerate treatment -No treatment will be given until pt is discharged from rehab SVC syndrome -No current resp distress. Pt denying any chest pain, dysphagia at this time. Maintaining O2 sats in the 90's on 4L. -Rad Onc will follow up with pt in the near future for further radiation recommendations
[2023-07-30] MEDS: ALPRAZolam 0.25 MG TAB PO SCH (20:18)
[2023-07-31] MEDS: carvediloL 12.5 MG TAB PO SCH ×2 (07:08→17:26)
[2023-07-31] MEDS: HEPARIN SODIUM,PORCINE 5,000 UNIT/ML 1 ML VIAL SQ SCH (07:08)
[2023-07-31] MEDS: ALBUTEROL NEBULIZED 2.5 MG/3 ML INHALATION SCH ×3 (07:22→15:29)
[2023-07-31] MEDS: SYMBICORT 160-4.5 MCG INHALER INHALATION SCH (07:32)
[2023-07-31] MEDS: FUROSEMIDE 10 MG/ML 4 ML VIAL IV SCH (08:44)
--- NOTE | 2023-07-31 11:44 | P.PN ---
Subjective Progress Note Date: 07/31/23 This is a 63-year-old female patient, a chronic smoker started age of 18 and she quit smoking approximately 2 months ago. She presented emergency department was a 3 days history of shortness of breath. CAT scan of the chest was done in the emergency department and the patient was found to have extensive mediastinal lymphadenopathy and this is present in the right paratracheal area, right hilum, subcarinal area and the patient has mass effect with significant narrowing of the distal right main stem bronchus and bronchus intermedius and airways completely occluded past the distal right main stem. As such, the patient has extensive atelectatic changes in the right middle lobe and the right lower lobe with a small right-sided pleural effusion. Presentation is highly suspicious for small cell lung cancer. No evidence of any pulmonary embolism. The patient has of the discomfort of 14.2, sodium is at 131 initially at 128 probably related to SIADH. Troponins are negative. Pro-calcitonin level is at 12.8. She is afebrile. Hemodynamically stable. Pulse ox is 95% liters of oxygen by nasal cannula. No hemoptysis. 20 pounds weight loss. The patient is seen today 07/16/2023 in follow-up on the regular medical floor. She is awake and alert in no acute distress. She is maintaining good O2 saturations in the mid 90s on 2 L/m per nasal cannula. She's afebrile. Hemodynamically stable. No new labs today. She is continued on Zosyn. Heparin for DVT prophylaxis. Normal saline at 75 ML's per hour. Based on the above mentioned computed tomography scan findings we will plan for bronchoscopy and probable biopsies tomorrow. The patient is seen today 07/17/2023 in follow-up on the regular medical floor. She is currently sitting up in a chair at the bedside. Awake and alert in no acute distress. She is maintaining O2 saturations in the 90s on 3 L/m per nasal cannula. She's been afebrile. Hemodynamically stable. Blood cultures reveal no growth. White count 12.8. Hemoglobin 11.3. Platelets 517. Sodium 140. Potassium 4.1. Bicarb 28. BUN 17. Creatinine 0.6. Glucose 104. Remains on antibiotics in form of Zosyn. Plan is for bronchoscopy with biopsies today 07/17/23 Patient underwent bronchoscopy and there was evidence of complete obstruction of the right mainstem bronchus and right upper lobe bronchus, there was evidence of endobronchial tumor, cauliflower-shaped tumor involving the enrike, right upper lobe bronchus, right mainstem bronchus, and there was no visualization of the right upper lobe or right middle lobe or right lower lobe. Procedure was done, patient underwent multiple biopsies of the endobronchial tumor, brushings were done, au needle aspiration of 4R lymph node done. The procedure was well- tolerated, however the patient was extubated in the recovery room, however she had to be reintubated because she was acting confused and her O2 saturations were running low. Patient was placed back on mechanical ventilation with assist control rate of 24, tidal volume to 50, FiO2 on the percent, PEEP of 5. Patient will be transferred to the ICU, she would be kept on mechanical ventilation tonight, and will likely address weaning and extubation to BiPAP in the next 24 hours. Patient does have significant underlying COPD and I believe extubating the patient to BiPAP would be reasonable. In the meantime we will support the patient on mechanical ventilation, and we will address weaning and extubation in the next 24 hours. Patient was reevaluated today on 07/18/23, patient underwent bronchoscopy and multiple endobronchial biopsies of a large tumor completely occluding the right mainstem bronchus, right upper lobe, and she had to transfer enrike needle aspiration of lymph nodes. Patient was extubated after the procedure however she did not tolerate the extubation and she had to be reintubated by [facility] [employer]. Patient was admitted to the ICU overnight, and I'm seeing her today, patient remains intubated and mechanically ventilated. She is on assist control rate of 26 tidal volume to 50 FiO2 45% and PEEP of 5 ABG showed a pO2 of 79 pCO2 50 pH of 7.40. Chest x-ray continues to show complete opacification of the right lung, left lung seems to be relatively clear. Patient is on propofol at 35 mcg/kg/m she is also on IV fluid at 100 mL per hour. After evaluating the patient, I recommended stopping propofol, patient was given a trial of pressure support of 12 and CPAP, and she was tolerating the weaning well. And I ext ubated the patient to BiPAP, 12//40%, and I will follow along next to the patient evaluating her pulmonary status during this transition from mechanical ventilation to BiPAP. Patient seemed to do better on BiPAP, hence we'll keep her on BiPAP today, and we will continue bronchodilators, we will continue her IV fluids, and awaiting final pathology from her recent endobronchial biopsies. Overall prognosis considering the findings on the bronchoscopy yesterday, is extremely poor She was seen and examined today on 07/19/23, patient remains in the ICU, she was extubated yesterday successfully, presently on nasal cannula at 8 L/m, however she was on BiPAP at night 12/6/45%. O2 saturations in the mid 90s I cut her down to 5 L nasal cannula, patient did not sleep well last night. IV fluid is cut down to KVO, patient is eating and drinking pathology from the bronchoscopy is still pending however in the meantime I'm recommending consultation with oncology and with radiation oncology. Chest x-ray continues to show complete opacification of the right hemithorax. No infiltrate in the left lung. WBC count is 15.7 hemoglobin is 11.1, basic metabolic profile is normal, renal profile is normal Patient was seen and examined today on 07/20/23, patient remains in the ICU, she is supposedly overflow, but overnight she developed worsening shortness of breath and she had to be placed on BiPAP, she remains on BiPAP this morning. She is on 12/6/45%, remains on Zosyn, remains on bronchodilators, and today I went ahead and added Decadron. Patient was seen by oncology, and again we are waiting for the tissue diagnosis/biopsy. Overall clinical picture does not look very promising, patient is marginal at best. And I did discuss the CODE STATUS with the patient yesterday, and she definitely wants to be DO NOT RESUSCITATE CODE STATUS. I will try to reach her son Christophe sometime later today and discussed her condition with him also. WBC count is 14.1 hemoglobin is 10.8, basic metabolic profile is normal sodium is up to 145. And renal profile is normal The patient is seen today 07/21/2023 in follow-up on the regular medical floor. Awake and alert in no acute distress. She is currently sitting up in a chair at the bedside. She is having difficulty breathing when lying in bed. She is maintaining O2 saturations in the 90s on 7 L high flow nasal cannula. She currently denies any worsening shortness of breath, cough or congestion. She denies any pain. Her family is at the bedside. Blood cultures revealed no growth. Bronchial wash cultures reveal no growth. Pathology is pending from biopsies. White count 13.8. Hemoglobin 11.1. Platelets 512. Sodium 130. Potassium 4.0. Bicarb 35. BUN 23. Creatinine 0.42. She remains on Symbicort, albuterol, Decadron. Heparin for DVT prophylaxis. Normal saline at O. Antibiotics in the form of Zosyn. The patient is seen today 07/22/2023 in follow-up on the regular medical floor. She is sitting up in a chair. Awake and alert in no acute distress. Denies any worsening shortness of breath, cough or congestion. She is still on 7 high flow liters high flow nasal cannula to maintain O2 saturations in the 90s. Blood cultures revealed no growth. Bronchial wash cultures revealed no growth. Pathology still pending. White count 12.4. Hemoglobin 11.2. Platelets 539. Sodium 149. Potassium 3.9. Bicarb 35. BUN 23. Creatinine 0.44. Glucose 103. She is continued on Symbicort, albuterol, Decadron. Antibiotics in the form of Zosyn. The patient is seen today 07/23/2023 in follow-up on the regular medical floor. She is awake and alert in no acute distress. She is maintaining O2 saturations in the 90s on 5 L high flow nasal cannula. She denies any worsening shortness of breath, cough or congestion. Her oxygenation continues to improve. She may require home oxygen. Blood cultures revealed no growth. Bronchial wash cultures revealed no growth. Sodium 151. Potassium 3.9. Bicarb 36. BUN 20. Creatinine 0.4. She completed a course of antibiotics. She is on heparin for DVT prophylaxis. Continue on Symbicort and albuterol. Continued on a prednisone taper. The patient is seen today 07/24/2023 in follow-up on the regular medical floor. She is sitting up in a chair. Awake and alert in no acute distress. She is down to 4 L high flow nasal cannula maintaining O2 saturations in the 90s. She does desaturate to 88% and a brief walk on room air. Blood cultures revealed no growth. Bronchial wash cultures revealed no growth. Her lung biopsies did come back positive for small cell carcinoma. She is continued on Symbicort, albuterol, prednisone. Heparin for DVT prophylaxis. D5W at 75 ML's per hour. The patient is seen today 07/25/2023 in follow-up on the regular medical floor. She is awake and alert in no acute distress. Sitting up in a chair at the bedside. She is maintaining O2 saturations in the 90s on 4 L/m per nasal cannula. She is continued on Symbicort, prednisone and albuterol. Heparin for DVT prophylaxis. Prednisone taper. MRI of the brain revealed a small focus of enhancement in the left frontal lobe concerning for metastatic disease. No evidence of acute/subacute CVA. Nonspecific white matter changes. DT scan of the abdomen and pelvis revealed markedly generalized anasarca. No changes in the visualized right lung. Also extensive tumor infiltrating throughout the visualized right lower lobe. Pleural disease with moderate right pleural eff usion and pleural studding. Multiple hepatic metastases measuring up to 4.2 cm. Mild nodular thickening of the bilateral adrenal glands also suspicious. White count 13.2. Hemoglobin 11.7. Platelets 469. Sodium 141. Potassium 3.4. Bicarb 34. BUN 12. Creatinine 0.4. Glucose 126. The patient is seen today 08/05/2023 in follow-up on the regular medical floor. She is sitting up in a chair. Awake and alert in no acute distress. Maintaining O2 saturations in the 90s on 4 L/m per nasal cannula. No IV fluids. She denies any worsening shortness of breath, cough or congestion. White count 10.5. Hemoglobin 12.0. Platelets 435. Sodium 142. Potassium 3.8. Bicarb 34. BUN 8.8. Creatinine 0.3. Glucose 98. AST 49. ALT 42. She is continued on Symbicort and albuterol. Heparin for DVT prophylaxis. Initiated on Decadron 10 mg IV every 24 hours today. She will will be starting carboplatin and etoposide today per oncology. The patient is seen today 07/27/2023 in follow-up on the regular medical floor. She remains awake and alert in no acute distress. Maintaining O2 saturations in the 90s on 4 L/m per nasal cannula. Currently sitting up in a chair at the bedside. She did receive her first round of chemotherapy yesterday and including carboplatin and etoposide, remains on Decadron 10 mg IV daily. She denies any worsening shortness of breath, cough or congestion. No hemoptysis. Blood cultures revealed no growth. Bronchial wash cultures revealed no growth. White count 15.8. Hemoglobin 11.7. Platelets 389. Sodium 143. Potassium 4.4. Bicarb 32. BUN 14. Creatinine 0.4. Glucose 125. AST 57. ALT 58. LDH 408. Albumin 3.2. She remains on bronchodilators. Normal saline at 100 ML's per hour. Tolerating a regular diet. The patient is seen today 07/28/2023 in follow-up on the regular medical floor. She is sitting up in a chair. Awake and alert in no acute distress. She denies any worsening shortness of breath, cough or congestion. She is maintaining O2 saturations in the 90s on 4 L/m per nasal cannula. She has normal saline at 50 MLS per hour. She is continuing on her chemotherapy treatment. Remains on Decadron. Continued on Symbicort and albuterol. Heparin for DVT prophylaxis. The patient is seen today 07/29/2023 in follow-up on the regular medical floor. She is currently resting up in a chair. Denies any worsening shortness of breath, cough or congestion. She continues to maintain good O2 saturation the 90s on 4 L/m per nasal cannula. She has normal saline at 50 MLS per hour. She completed her first course of chemotherapy yesterday. Plan is for discharge to subacute rehabilitation possibly tomorrow. Continued on bronchodilators. Heparin for DVT prophylaxis. on 07/30/2023, the patient is calm and comfortable. She remains on oxygen at 4 L nasal cannula. She is quite weak and debilitated. Her most recent chest x- ray shows complete the investigation of the right lung and the patient was completed her systemic chemotherapy regarding her metastatic small cell lung cancer. No chest pain. No altered mentation. As mentioned earlier, the patient will need further follow-up with medical oncology and radiation oncology.the patient has completed systemic chemotherapy with carboplatinum and [employer]-16.she is quite debilitated. She has no neurologic deficits. No altered mentation.. MRI brain revealed small focus, 5 mm enhancement in the left frontal lobe. No evidence for acute/subacute CVA. Nonspecific white matter changes. CT abdomen pelvis showed known changes in the visualized right lung. Possible extensive tumor infiltrating throughout the visualized right lower lobe. Pleural disease with moderate right pleural effusion and pleural studding. Multiple hepatic metastases measuring up to 4.2 cm and mild nodular thickening of bilateral adrenal glands. Findings were reviewed with pt and that this is consistent with extensive stage small cell carcinoma. The sodium is at 142, BUN is at 19 with a creatinine of 0.4 On 07/31/2023, no change in the patient's condition. The patient is awaiting transfer to [facility]. No new labs from today. Labs from yesterday were noted. She remains on oxygen at 4 L nasal cannula. Hemodynamically stable. Objective - Vital Signs Vital signs: Vital Signs Temp 97.9 F 07/31/23 00:58 Pulse 80 07/31/23 11:32 Resp 18 07/31/23 07:00 BP 103/62 07/31/23 09:06 Pulse Ox 93 L 07/31/23 07:00 FiO2 45 07/19/23 19:40 Intake & Output 07/30/23 07/31/23 07/31/23 18:59 06:59 18:59 Output Total 550 Balance -550 Output: Urine 550 Other: Voiding Method Bedside Commode Bedside Commode Bedside Commode Diaper Diaper Diaper External Catheter External Catheter # Voids 1 2 # Bowel Movements 1 - Labs CBC & Chem 7: 07/29/23 05:18 07/30/23 06:26 Assessment and Plan Plan: Acute hypoxic and hypercapnic respiratory failure related to her underlying COPD, also related to her underlying lung mass and significant opacification of the right lung secondary to lung mass, and also related to her hilar adenopathy. This is all consistent with COPD and underlying bronchogenic carcinoma most likely squamous cell lung cancer. Bronchoscopy with biopsies performed on 07/17/2023. Pathology is positive for small cell carcinoma. MRI of the brain revealed a small focus of enhancement in the left frontal lobe concerning for metastatic disease. No evidence of acute/subacute CVA. Nonspecific white matter changes. DT scan of the abdomen and pelvis revealed markedly generalized anasarca. No changes in the visualized right lung. Also extensive tumor infiltrating throughout the visualized right lower lobe. Pleural disease with moderate right pleural effusion and pleural studding. Multiple hepatic metastases measuring up to 4.2 cm. Mild nodular thickening of the bilateral adrenal glands also suspicious. Initiated on carboplatin/etoposide 07/26/2023. Initiated on Decadron 10 mg IV daily. Completed on 07/28/2023. completely opacified right lung due to endobronchial tumor with a small right- sided pleural effusion. Currently on 4 L of O2 nasal cannula Hypernatremia, improved sodium 143 following previous hyponatremia corrected Postobstructive pneumonia involving the right lung area, completed Zosyn Chronic and ongoing tobacco dependence Coronary artery disease, prior stenting of the LAD Hypertension Hyperlipidemia Plan: Overall condition is stable, awaiting discharge to subacute rehabilitation Remains on oxygen at 4 L nasal cannula Completed carboplatin/etoposide 07/28/2023 Completed Decadron 10 mg IV daily x 3 Plan is for subacute rehabilitation at [facility] upon discharge she will need to follow-up with medical oncology and radiation oncology We'll follow up on outpatient basis
--- NOTE | 2023-07-31 13:30 | P.DS ---
Providers Date of admission: 07/14/23 22:34 Attending physician: Kellie Rizo Consults: 07/14/23 22:34 Consult Physician Routine Consulting Provider: Smita Teixeira Consult Reason/Comments: copd,effusion Do you want consulting provider notified?: Yes 07/19/23 08:53 Consult Physician Routine Consulting Provider: Grayson Shaw Consult Reason/Comments: Lung cancer Do you want consulting provider notified?: Yes 07/19/23 08:54 Consult Physician Routine Consulting Provider: Andriy Thornton Consult Reason/Comments: Lung cancer Do you want consulting provider notified?: Yes Primary care physician: [facility] Course: Diagnoses: right lung mass with biopsy showing small cell lung cancer, undergoing chemotherapy , she finished her first cycle of ( carboplatin/etoposide) plus dexamethasone 3 days the hospital and she needs to follow up outpatient with her oncologist Mediastinal lymphadenopathy, secondary to above Mild hypernatremia , resolved post obstructive pneumonia, finished antibiotics Hypertension Hyperlipidemia Chronic heart failure History of coronary artery disease status post stenting Hospital course: This is a pleasant 63 years old female with past medical history of Coronary Artery Disease s/p stenting, Heart Failure, GERD/Reflux, Hyperlipidemia, Hypertension, her PCP is Dr. Navarrete and cleaner and polisher Dr. Neff for her history of coronary artery disease status post stent Patient presents because of worsening dyspnea over 3 days . Chest x-ray showing extensive mass involving most of the right lung biopsy showing small cell cancer, patient was monitored and treated , with antibiotics with close follow- up by pulmonary and oncology team. After stabilization patient was transferred to the general medical floor, she received therapy with ( carboplatin/etoposide) plus dexamethasone 3 days. He tolerated the chemotherapy well. Her breathing significantly improved She remains on 4 L of oxygen for this cannula She denies any other symptoms. She looks comfortable She has some bilateral leg swelling. She was getting well she's received the chemotherapy, this improved with short course of Lasix she continue with oral Lasix 2 days upon discharge. She denies any other new complaints. Patient was cleared for discharge by pulmonary and oncology service. Problems and management plan were discussed with the patient and he verbalized understanding and acceptance Patient was found stable and can be discharged home in guarded prognosis however he needs follow-up as an outpatient. Patient was instructed to follow up with PCP Dr. Navarrete within one week and patient agrees patient's was instructed to follow up with specialty foods cook Dr. Teixeira on 08/13 and oncology nurse practitioner Tami alberts on 08/13 and patient agreeable Physical exam -Gen: patient is a AAOx3, no distress. Generally weak CVS: S1-S2, RRR, no murmur -Lungs: B/L CTA, no wheezing. Mild tachypnea. Nasal cannula in place Abdomen: soft, no distention, no tenderness, positive bowel sounds Extremity: no leg edema or induration time spent more than 35 minutes Patient Condition at Discharge: Fair Plan - Discharge Summary Discharge Rx Participant: No New Discharge Prescriptions: New Heparin Sodium,Porcine (1 ml) [Heparin Sodium] 5,000 unit SQ Q12HR each Albuterol Nebulized [Ventolin Nebulized] 2.5 mg INHALATION RT-QID ml diphenhydrAMINE [Benadryl] 25 mg PO HS PRN #20 capsule PRN Reason: Insomnia Ondansetron [Zofran] 4 mg PO Q4HR PRN #45 tab PRN Reason: Nausea Continue Aspirin 81 mg PO DAILY Carvedilol 25 mg PO BID Changed Furosemide [Lasix] 40 mg PO BID #120 tab Atorvastatin [Lipitor] 40 mg PO HS #15 tab Discontinued amLODIPine [Norvasc] 5 mg PO BID lisinopriL [Zestril] 10 mg PO DAILY Levofloxacin [Levaquin] 500 mg PO DAILY Discharge Medication List Aspirin 81 mg PO DAILY 07/29/14 [History] Carvedilol 25 mg PO BID 07/29/14 [History] Albuterol Nebulized [Ventolin Nebulized] 2.5 mg INHALATION RT-QID ml 07/30/23 [Rx] Atorvastatin [Lipitor] 40 mg PO HS #15 tab 07/30/23 [Rx] Furosemide [Lasix] 40 mg PO BID #120 tab 07/30/23 [Rx] Heparin Sodium,Porcine (1 ml) [Heparin Sodium] 5,000 unit SQ Q12HR each 07/30/23 [Rx] Ondansetron [Zofran] 4 mg PO Q4HR PRN #45 tab 07/30/23 [Rx] diphenhydrAMINE [Benadryl] 25 mg PO HS PRN #20 capsule 07/30/23 [Rx] Follow up Appointment(s)/Referral(s): Brie Alberts NPC [Nurse Practitioner] - 08/13/23 2:15 pm (This appt is at the office located [address] [place] [address] [facility]) Hari Navarrete DO [Primary Care Provider] - 1-2 days Smita Teixeira MD [STAFF PHYSICIAN] - 08/13/23 10:30 am Activity/Diet/Wound Care/Special Instructions: [email or web address] diet activity is as tolerated Discharge Disposition: TRANSFER TO SNF/ECF
--- NOTE | 2023-07-31 14:42 | P.PN ---
Subjective Progress Note Date: 07/31/23 Principal diagnosis: Metastatic small cell lung cancer, SVC syndrome In follow-up today patient denies any fevers, nausea or vomiting, no significant side effects from recent chemotherapy to report. She is tolerating diet, no new pain. Lower extremity swelling nearly resolved. Nahomy at [facility] for rehab. Objective - Vital Signs Vital signs: Vital Signs Temp 97.9 F 07/31/23 00:58 Pulse 80 07/31/23 11:32 Resp 18 07/31/23 07:00 BP 103/62 07/31/23 09:06 Pulse Ox 93 L 07/31/23 07:00 FiO2 45 07/19/23 19:40 Intake & Output 07/30/23 07/31/23 07/31/23 18:59 06:59 18:59 Output Total 550 Balance -550 Output: Urine 550 Other: Voiding Method Bedside Commode Bedside Commode Bedside Commode Diaper Diaper Diaper External Catheter External Catheter # Voids 1 2 # Bowel Movements 1 - Constitutional General appearance: Present: average body habitus (Petite), cooperative, no acute distress - EENT Eyes: Present: anicteric sclerae, EOMI ENT: Present: hearing grossly normal - Respiratory Respiratory: bilateral: diminished - Cardiovascular Rhythm: regular Heart sounds: normal: S1, S2 Abnormal Heart Sounds: Absent: systolic murmur, diastolic murmur, rub, S3 Gallop, S4 Gallop, click, other - Peripheral edema leg Peripheral Edema: bilateral: 1+ - Gastrointestinal General gastrointestinal: Present: normal bowel sounds, soft - Integumentary Integumentary: Present: normal - Neurologic Neurologic: Present: CNII-XII intact - Musculoskeletal Musculoskeletal: Present: generalized weakness - Psychiatric Psychiatric: Present: A&O x's 3, appropriate affect, intact judgment & insight - Labs CBC & Chem 7: 07/29/23 05:18 07/30/23 06:26 Assessment and Plan (1) Pleural effusion, right Current Visit: Yes Status: Acute Code(s): J90 - PLEURAL EFFUSION, NOT ELSEWHERE CLASSIFIED SNOMED Code(s): 46502245 (2) Small cell lung carcinoma Current Visit: Yes Status: Acute Priority: High Code(s): C34.90 - MALIGNANT NEOPLASM OF UNSP PART OF UNSP BRONCHUS OR LUNG SNOMED Code(s): 604634155 Plan: New diagnosis SCLC, stage IV-liver, possible adrenal involvement, 5mm brain lesion -S/P 1st cycle of carbo/[employer]IST, tolerated well, no immediate side effects reported -Plan to cont chemo-next cycle in 3 weeks, as long as pt is out of rehab -F/U with Rad Onc after rehab too Generalized weakness -2/2 above -Pt reports she is agreeable to rehab. This should help pt get stronger to tolerate treatment -No treatment will be given until pt is discharged from rehab -DC today SVC syndrome -No current resp distress. Pt denying any chest pain, dysphagia at this time. Maintaining O2 sats in the 90's on 4L. -Rad Onc will follow up with pt in the near future for further radiation recommendations attests: I have seen and examined patient, performed H&P, developed impression and plan of care. Discussed with dictator. Agree with documentation, dictated as a scribe.
[2023-07-31 15:20] VITALS: BP 129/71; RESP 16; TEMP 97.3
[2023-07-31 15:46] VITALS: PULSE 88
== END 2023-07-31 18:14 | DRG 208 ==
LOC: EC 18:35 → 5NMEDONC 22:34 → 2SICU 07-17 13:50 → 6NMEDSUR 07-20 23:22 → 5NMEDONC 07-25 16:00
PROVIDERS: ADMIT Hospitalist; ATTEND Hospitalist
PROC: 5A1945Z Respiratory Ventilation, 24-96 Consecutive Hours (ICD-10-PCS; principal; 2023-07-17 14:00)
PROC: 0BH17EZ Insertion of Endotracheal Airway into Trachea, Via Natural or Artificial Opening (ICD-10-PCS; principal; 2023-07-17 14:00)
PROC: 07D74ZX Extraction of Thorax Lymphatic, Percutaneous Endoscopic Approach, Diagnostic (ICD-10-PCS; 2023-07-17 14:00)
PROC: 0BB38ZX Excision of Right Main Bronchus, Via Natural or Artificial Opening Endoscopic, Diagnostic (ICD-10-PCS; 2023-07-17 14:00)
PROC: 0BD38ZX Extraction of Right Main Bronchus, Via Natural or Artificial Opening Endoscopic, Diagnostic (ICD-10-PCS; 2023-07-17 14:00)
PROC: 0BB48ZX Excision of Right Upper Lobe Bronchus, Via Natural or Artificial Opening Endoscopic, Diagnostic (ICD-10-PCS; 2023-07-17 14:00)
PROC: 5A09357 Assistance with Respiratory Ventilation, Less than 24 Consecutive Hours, Continuous Positive Airway Pressure (ICD-10-PCS; 2023-07-18)
DX: C34.01 Malignant neoplasm of right main bronchus (principal); J18.8 Other pneumonia, unspecified organism; J96.01 Acute respiratory failure with hypoxia; J96.02 Acute respiratory failure with hypercapnia; C78.7 Secondary malignant neoplasm of liver and intrahepatic bile duct; C79.89 Secondary malignant neoplasm of other specified sites; C79.72 Secondary malignant neoplasm of left adrenal gland; C79.71 Secondary malignant neoplasm of right adrenal gland; E22.2 Syndrome of inappropriate secretion of antidiuretic hormone; I87.1 Compression of vein; J44.0 Chronic obstructive pulmonary disease with (acute) lower respiratory infection; J44.1 Chronic obstructive pulmonary disease with (acute) exacerbation; J98.11 Atelectasis; E66.9 Obesity, unspecified; I50.9 Heart failure, unspecified; Z68.32 Body mass index [BMI] 32.0-32.9, adult; Z66 Do not resuscitate; R13.10 Dysphagia, unspecified; U09.9 Post COVID-19 condition, unspecified; Z87.891 Personal history of nicotine dependence; E78.5 Hyperlipidemia, unspecified; Z60.2 Problems related to living alone; Z51.5 Encounter for palliative care; Z79.82 Long term (current) use of aspirin; Z79.899 Other long term (current) drug therapy; Z95.5 Presence of coronary angioplasty implant and graft; Z28.21 Immunization not carried out because of patient refusal; Z71.3 Dietary counseling and surveillance
CPT/HCPCS: 31623; 31624; 31625; 31629; 36415; 36600; 70553; 71045; 71275; 74177; 80048; 80053; 82805; 83605; 83615; 83735; 83880; 84100; 84145; 84484; 84550; 85025; 85379; 85610; 85730; 87040; 87070; 87102; 87205; 88104; 88108; 88305; 88341; 88342; 93005; 94002; 94003; 94640; 94660; 94760; 96361; 96374; 99291

== ENCOUNTER → 2023-09-03 | Outpatient (CLI) | payer BC ==
--- NOTE | 2023-09-03 17:30 | NM ---
EXAMINATION TYPE: NM bone scan whole body DATE OF EXAM: 09/03/2023 COMPARISON: NONE HISTORY: Lung cancer Delayed whole-body scanning was performed following the injection of 25.3 mCi Tc 99m MDP. Images wer e acquired 3 hours post injection. FINDINGS: There is focal radiotracer accumulation in the right calvarium. A second area may be in the posterior midline near the vertex. There is focal radiotracer accumulation in the posterior right 10th rib region suspicious for metasta tic disease. Degenerative change could be considered. More subtle uptake may be within the posterior right first pedicle possibly the 12th right pedicle. There is increased radiotracer accumulation in the posterior right pubic ramus some abnormal uptake i s in the region of the posterior left hip acetabulum. Uptake in the right foot is more likely degenerative in nature. Uptake at the shoulders is likely deg enerative in nature. IMPRESSION: 1. Scattered areas of abnormal uptake including the calvarium, T10 region and possibly T12 and L1 rig ht posterior pedicles and within the pubic ramus and acetabulum within the pelvis discussed above. Fi ndings are suspicious for osseous metastasis
== END | disposition home or self-care (01) ==
LOC: RADNMMAIN 07:19
PROVIDERS: ATTEND Internal Medicine Hematology & Oncology
DX: C34.90 Malignant neoplasm of unspecified part of unspecified bronchus or lung (principal)
CPT/HCPCS: 78306; A9503

== ENCOUNTER → 2023-09-12 | Outpatient (CLI) | payer BC ==
--- NOTE | 2023-09-13 09:34 | MR ---
EXAMINATION TYPE: MR brain wo/w con DATE OF EXAM: 09/12/2023 COMPARISON: 07/24/2023 HISTORY: Lung cancer CONTRAST: Performed utilizing 7 mL intravenous Gadavist gadolinium contrast. TECHNIQUE: Multiplanar, multiecho imaging on a 3.0 Kamille magnet is performed through the brain. Stud y is performed within 24 hours of arrival to the hospital. The craniovertebral junction is normal. The pituitary is normal. Diffusion-weighted imaging is performed. No abnormal hyperintensity is present to suggest an acute i ntracranial infarct or acute ischemic change. There is a small hyperintensity within the lower right brain stem which is hyperintense on T2 and hyp ointense on T1 and diffusion may be a small pulmonary infarct, series 401 image 12. There are additional periventricular and deep white matter scattered hyperintensities which are nonsp ecific but can be related to chronic white matter ischemic changes. No suspicious enhancement is evident. Ventricles and sulci are appropriate for the patient age. IMPRESSION: 1. No suspicious changes to suggest metastatic disease. 2. Scattered periventricular deep white matter ischemic-type changes. 3. Small old lacunar infarct in the right inferior brainstem may be present.
== END | disposition home or self-care (01) ==
LOC: RADMRIMAIN 17:39
PROVIDERS: ATTEND Internal Medicine Hematology & Oncology
DX: G93.89 Other specified disorders of brain (principal); C34.90 Malignant neoplasm of unspecified part of unspecified bronchus or lung
CPT/HCPCS: 70553; A9585

== ENCOUNTER → 2023-09-13 | Outpatient (CLI) | payer BC ==
[2023-09-13 11:48] LABS: African American GFR (CKD) >90 (>60 ml/min/1.73 sqM); Blood Urea Nitrogen 22 mg/dL (7-17); Non-African American GFR(CKD) >90 (>60 ml/min/1.73 sqM)
--- NOTE | 2023-09-13 13:35 | CT ---
EXAMINATION TYPE: CT ChestAbdPelvis w con DATE OF EXAM: 09/13/2023 COMPARISON: CT chest dated 07/10/[address] abdomen pelvis dated 07/24/2023 HISTORY: f/u lung ca CT DLP: 806.1 mGycm Automated exposure control for dose reduction was used. CONTRAST: CT scan of the chest, abdomen and pelvis is performed with Oral Contrast and with IV Contrast, patien t injected with 100 mL of Isovue 300. FINDINGS: CT chest: The large right pleural effusion seen on the prior study has resolved in the interval. Currently ther e is no pleural effusion. There has been interval development of a 2.8 x 4.4 cm mass in the right upper lobe anteriorly consist ent with neoplasm. No additional pulmonary nodules or masses are seen throughout the lung parenchyma. There has been marked interval reduction in the mediastinal adenopathy. A persistent 2.8 cm subcarina l lymph node persists. There is no axillary adenopathy or hilar adenopathy. The great vessels the chest are normal. There has been interval development of multiple sclerotic lesions within the thoracic spine including T4 T6 T7 T10 T11 and T12. There is no pathological fracture. CT abdomen and pelvis: There are multiple innumerable ill-defined hypodense lesions scattered throughout the liver the large st of which is 12 mm. There is a consistent with metastatic disease. There has been marked interval r eduction in the size of the lesions when compared to previous where the largest lesions are approxima tely 3 to 4 cm in size. No focal lesions are seen within the pancreas or spleen. The gallbladder is normal without gallstones , gallbladder distention or pericholecystic fluid. There is no biliary ductal dilatation. There is mild thickening of the left adrenal gland which was seen previously and is stable. There is no solid renal mass or hydronephrosis. There is no retroperitoneal adenopathy or hemorrhage in the caliber the abdominal aorta is normal. The bowel loops are normal in caliber and there is no dilatation or obstruction. No inflammatory cruz ges are identified within the bowel wall or mesentery and there is no free intraperitoneal air or flu id. There is no pelvic mass, free fluid, abscess or adenopathy. There is been interval development of multiple sclerotic metastasis including L1, L3, S1, right infer ior pubic ramus, and the sacrum. There are no destructive lesions or pathological fractures. IMPRESSION: 1. Interval resolution of the large right pleural effusion. 2. Neoplastic mass in the right upper lobe as described above. 3. Marked Interval reduction in the mediastinal adenopathy. Enlarged subcarinal lymph node persists. No hilar or axillary adenopathy. 4. Interval development of multiple sclerotic metastatic lesions in the dorsal thoracic spine as desc ribed above. No pathologic fractures. 5. Interval reduction in the diffuse liver metastasis but multiple small liver metastasis persists. 6. Interval development of multiple sclerotic metastasis in the lumbar spine and pelvis as described. No pathologic fractures.
== END | disposition home or self-care (01) ==
LOC: RADCTMAIN 11:06
PROVIDERS: ATTEND Internal Medicine Hematology & Oncology
DX: C79.51 Secondary malignant neoplasm of bone (principal); C78.7 Secondary malignant neoplasm of liver and intrahepatic bile duct; C34.90 Malignant neoplasm of unspecified part of unspecified bronchus or lung; R59.0 Localized enlarged lymph nodes; Z71.3 Dietary counseling and surveillance
CPT/HCPCS: 82565; 84520; 71260; 74177; 36415; Q9967

== ENCOUNTER → 2023-11-14 | Outpatient (CLI) | payer OTHER ==
--- NOTE | 2023-11-14 12:23 | MR ---
EXAMINATION TYPE: MR brain wo/w con DATE OF EXAM: 11/14/2023 11:31 AM CLINICAL INDICATION:Female, 63 years old with history of C79.31; PHH, Lung cancer, secondary malignan t neoplasm of brain. COMPARISON: 09/12/2023 TECHNIQUE: Multi planar, multi sequence imaging was performed through the brain including: T1, T2, In version recovery, susceptibility weighted imaging and gradient echo imaging and Diffusion weighted im aging. The patient was then given intravenous contrast and multi planar, T1 fat-saturation images wer e obtained. IV Contrast: 7.5 cc Gadavist FINDINGS: Small focus of restricted diffusion in the left frontal lobe measuring 4 mm.There may be sm all amount of enhancement in this region. Series 701 image 98 with small focus of blooming artifact a lso present.. Additional small focus of enhancement in the medial right temporal lobe series 701 imag e 51 and 52 and within the left temporal lobe series 701 image 83. Mild cerebral atrophy with proportional dilation of ventricular system. Intracranial arterial flow voids are maintained. Midline structures show no abnormality. Scattered foci of high T2 signal intens ity are seen within the periventricular white matter The bone marrow signal is stable focus of enhancement in the right frontal bone. Paranasal sinuses and mastoid air cells: No significant paranasal sinus disease. Visualized orbits: Orbital contents are intact. IMPRESSION: 1. Scattered small foci of enhancement with one demonstrating restricted diffusion in the left fronta l lobe blanco radiata. Findings concerning for metastatic disease in setting of cancer. This is new f rom prior. 2. Nonspecific white matter changes, likely related to small vessel ischemic disease.
== END | disposition home or self-care (01) ==
LOC: RADMRIMAIN 10:29
PROVIDERS: ATTEND Radiology Radiation Oncology
DX: G93.89 Other specified disorders of brain (principal); C79.31 Secondary malignant neoplasm of brain; C80.1 Malignant (primary) neoplasm, unspecified
CPT/HCPCS: 70553

== ENCOUNTER → 2023-12-17 | Outpatient (CLI) | payer OTHER ==
--- NOTE | 2023-12-19 18:39 | MR ---
EXAMINATION TYPE: MR brain wo/w con DATE OF EXAM: 12/17/2023 6:45 PM CLINICAL INDICATION:Female, 63 years old with history of C79.31 SECONDARY MALIGN NEOPLASM OF BRAIN; P HH, Hx Lung and liver cancer, Evaluate for brain neoplasm, COMPARISON: 11/14/2023 TECHNIQUE: Multi planar, multi sequence imaging was performed through the brain including: T1, T2, In version recovery, susceptibility weighted imaging and gradient echo imaging and Diffusion weighted im aging. The patient was then given intravenous contrast and multi planar, T1 fat-saturation images wer e obtained. IV Contrast: 7.5 cc Gadavist FINDINGS: Redemonstration of right caudate nucleus remote injury versus prominent perivascular space. Other prominent perivascular spaces in the bilateral basal ganglia, and modesta. Area of abnormal postc ontrast enhancement on prior involving the left temporal/parietal region and left frontal lobe are an d right temporal lobe are not visualized. No new areas of postcontrast enhancement. The beltran-white ju nctions, ventricular system, basal cisterns appear unremarkable. Diffusion-weighted imaging shows no evidence of restricted diffusion to suggest acute/subacute infarct. Intracranial arterial flow voids are maintained. Midline structures show no abnormality. Scattered foci of high T2 signal intensity a re seen within the periventricular white matter. The susceptibility weighted images do not reveal any evidence for micro-hemorrhage. After administration of gadolinium, no abnormal enhancement is seen. The bone marrow signal is within normal limits. Paranasal sinuses and mastoid air cells: Mild scattered paranasal sinus disease. High T2 signal withi n the right mastoid air cells. Visualized orbits: Orbital contents are intact. IMPRESSION: No suspicious postcontrast enhancement or evidence for intra-axial/intracranial mass. Areas of contrast enhancement within the right temporal, left temporal parietal region and left front al lobe are no longer visualized.
== END | disposition home or self-care (01) ==
LOC: RADMRIMAIN 17:44
PROVIDERS: ATTEND Radiology Radiation Oncology
DX: C79.31 Secondary malignant neoplasm of brain (principal); C34.91 Malignant neoplasm of unspecified part of right bronchus or lung
CPT/HCPCS: 70553; A9585

== ENCOUNTER → 2023-12-19 | Outpatient (CLI) | payer OTHER ==
[2023-12-19 08:03] LABS: African American GFR (CKD) >90 (>60 ml/min/1.73 sqM); Blood Urea Nitrogen 11 mg/dL (7-17); Non-African American GFR(CKD) >90 (>60 ml/min/1.73 sqM)
--- NOTE | 2023-12-19 09:43 | CT ---
EXAMINATION TYPE: CT ChestAbdPelvis w con DATE OF EXAM: 12/19/2023 COMPARISON: 09/13/2023 HISTORY: Hx lung ca, observe for mets CT DLP: 1204 mGycm CONTRAST: CT scan of the chest, abdomen and pelvis is performed with Oral Contrast and with IV Contrast, patien t injected with 100 mL of Isovue 300. CT Chest: LUNGS: Right upper lobe pulmonary mass persists although is smaller in size and currently measures 3. 1 x 1.8 cm versus prior measurement of 4.2 x 2.9 cm. Previously there is evidence of cavitation which is currently not present. There is a left lower lobe pulmonary nodule unchanged measuring 4.9 mm. No additional nodules or masses seen. No evidence of pleural effusion. No volume loss. No pleural effus ion or CT evidence of interstitial lung disease. MEDIASTINUM: Thoracic aorta is of normal caliber. The heart is not enlarged. No evidence for media stinal mass or adenopathy. HILAR STRUCTURES: No evidence for mass. No hilar adenopathy is appreciated. OTHER: No significant abnormality. CONTRAST CT ABDOMEN AND PELVIS FINDINGS: LIVER/GB: No calcified gallstones. There are scattered hepatic subcentimeter hypoattenuating lesion s which are smaller in size than on prior study and are compatible with improving hepatic metastases. No new metastases seen. Biliary tree is of normal caliber. PANCREAS: No inflammation. No distinct mass. SPLEEN: No splenic enlargement. No lesion seen. ADRENALS: No nodule. No thickening. KIDNEYS/BLADDER: No hydronephrosis. No nephrolithiasis. No disctinct renal mass. BOWEL: Normal appendix. Normal bowel caliber. No inflammation. GENITAL ORGANS: No gross abnormality. LYMPH NODES: No greater than 1cm abdominal or pelvic lymph nodes are appreciated. AORTA: No significant abnormality. OSSEOUS STRUCTURES: Scattered sclerotic bony metastases redemonstrated. OTHER: No significant additional abnormality is seen. IMPRESSION: 1. Persistent right upper lobe pulmonary mass which is slightly smaller in size. 2. Stable left lower lobe pulmonary nodule. 3. Improvement in hepatic metastases as discussed. 4. Scattered sclerotic metastatic osseous lesions.
--- NOTE | 2023-12-19 14:18 | NM ---
EXAMINATION TYPE: NM bone scan whole body DATE OF EXAM: 12/19/2023 COMPARISON: NONE HISTORY: Lung cancer Delayed whole-body scanning was performed following the injection of 25.0 mCi Tc 99m MDP. Images wer e acquired 5.5 hours post injection. FINDINGS: There is a focus of radiotracer accumulation along the calvarium. Additional area may be near the roro molly. Metastases are not excluded. Increased uptake is region of the bilateral mid feet, right more so than left. This is nonspecific an d can be related to degenerative changes. Previous uptake within the posterior right 10th rib region appears diminished on the current examinat ion. Uptake is within the right pubic symphysis is diminished on the current examination. There is increased uptake at the posterior left hip. Pelvic metastasis should be considered IMPRESSION: 1. There are couple areas of increased uptake within the calvarium on the right near the vertex. Ther e is uptake around the left hip. These were present previously. Metastatic disease should be consider ed. 2. Previous posterior right 10th vertebral level uptake in prior uptake within the right pubic symphy sis is diminished from comparison. 3 uptake within the bilateral feet is nonspecific, degenerative ch marco may be present.
== END | disposition home or self-care (01) ==
LOC: RADNMMAIN 06:54
PROVIDERS: ATTEND Internal Medicine
DX: C34.90 Malignant neoplasm of unspecified part of unspecified bronchus or lung (principal); C78.7 Secondary malignant neoplasm of liver and intrahepatic bile duct; C79.51 Secondary malignant neoplasm of bone; R91.1 Solitary pulmonary nodule; Z71.3 Dietary counseling and surveillance
CPT/HCPCS: 82565; 84520; 71260; 74177; 36415; 78306; A9503; Q9967

== ENCOUNTER → 2024-03-17 | Outpatient (CLI) | payer OTHER ==
--- NOTE | 2024-03-17 17:13 | MR ---
EXAMINATION TYPE: MR brain wo/w con DATE OF EXAM: 03/17/2024 COMPARISON: 12/17/2023 HISTORY: Lung cancer checkup TECHNIQUE: Multiplanar, multisequence images of the brain and brainstem is performed without and with IV contras t, utilizing 7.5 mL intravenous Gadavist . Findings: On the T1-weighted sagittal images, the midline structures including the craniovertebral junction rel ationships appear normal. The ventricles, basal cisterns and sulci over the convexities are within normal limits and there is n o mass effect or shift of midline structures . There has been interval development of multiple, innumerable ring-enhancing lesions scattered throu ghout both cerebral hemispheres and the posterior fossa consistent with metastatic lesions. The large st of which are approximately 10 mm. There is no mass effect or significant vasogenic edema associate d with the lesions. A few of the lesions demonstrate mild diffusion restriction. There are few scattered tiny white matter signal abnormalities are likely chronic ischemic white cordelia er changes. Intraorbital contents are normal and symmetric. There is mild inflammatory change in the ethmoid air cells. The mastoid air cells are well aerated. IMPRESSION: Interval development of multiple scattered innumerable ring-enhancing lesions consistent with diffuse metastatic disease. As described above.
== END | disposition home or self-care (01) ==
LOC: RADMRIMAIN 15:30
PROVIDERS: ATTEND Radiology Radiation Oncology
DX: C79.31 Secondary malignant neoplasm of brain (principal); C34.91 Malignant neoplasm of unspecified part of right bronchus or lung
CPT/HCPCS: 70553; A9585

== ENCOUNTER → 2024-03-27 | Outpatient (CLI) | payer OTHER ==
[2024-03-27 10:16] LABS: African American GFR (CKD) >90 (>60 ml/min/1.73 sqM); Blood Urea Nitrogen 12 mg/dL (7-17); Non-African American GFR(CKD) >90 (>60 ml/min/1.73 sqM)
--- NOTE | 2024-03-27 12:15 | CT ---
EXAMINATION TYPE: CT ChestAbdPelvis w con DATE OF EXAM: 03/27/2024 COMPARISON: 12/19/2023 HISTORY: lung cancer CT DLP: 1444.3 mGycm Automated exposure control for dose reduction was used. CONTRAST: CT scan of the chest, abdomen and pelvis is performed with Oral Contrast and with IV Contrast, patien t injected with 100 mL of Isovue 300. FINDINGS: CT chest: The right upper lobe mass has decreased in size from 31 mm x 18 mm to 27 m x 11 mm. There is been int erval development of multiple innumerable right sided pulmonary nodules the largest of which is 14.4 mm and is found in the right lower lobe. The left lower lobe pulmonary nodule described in the prior study has increased from 4.9 mm to 6.8 mm. There has been interval development of a 17 mm right paratracheal lymph node and a 17 mm subcarinal l ymph node. There is no airspace consolidation. There is no abnormal interstitial density. There is no pleural effusion or pneumothorax. CT abdomen and pelvis: Gallbladder is normal without distention, pericholecystic fluid, wall thickening or gallstone. There is no biliary ductal dilatation. There is a focal area of heterogeneous density in the posterior segment right lobe of the liver consi stent with metastatic disease which appears to have increased in size in the interval... There is no solid renal mass or hydronephrosis. There is no retroperitoneal adenopathy or hemorrhage in the caliber of the abdominal aorta is normal. The bowel loops are normal in caliber and there is no dilatation or obstruction. No inflammatory cruz ges identified in the bowel wall and mesentery. There is no free intracranial air or fluid. There is no pelvic mass or adenopathy. There is no free fluid within the pelvis. No focal osseous lesions are seen. Soft tissue the abdomen and pelvis are normal. IMPRESSION: 1. Primary right upper lobe neoplasm has decreased in size in the interval as described above. 2. Interval development of mediastinal adenopathy and multiple innumerable pulmonary nodules consiste nt with development of significant metastatic disease. 3. Increasing metastatic disease within the liver as described above..
== END | disposition home or self-care (01) ==
LOC: RADCTMAIN 09:34
PROVIDERS: ATTEND Internal Medicine Hematology & Oncology
DX: C78.7 Secondary malignant neoplasm of liver and intrahepatic bile duct (principal); C34.11 Malignant neoplasm of upper lobe, right bronchus or lung; R91.8 Other nonspecific abnormal finding of lung field; Z71.3 Dietary counseling and surveillance
CPT/HCPCS: 82565; 84520; 71260; 74177; 36415; Q9967

== ENCOUNTER → 2024-06-02 | Outpatient (CLI) | payer OTHER ==
--- NOTE | 2024-06-02 13:06 | MR ---
EXAMINATION TYPE: MR brain wo/w con DATE OF EXAM: 06/02/2024 COMPARISON: 03/17/2024 HISTORY: F/U radiation treatment CONTRAST: Performed utilizing 8 mL intravenous Gadavist gadolinium contrast. TECHNIQUE: Multiplanar, multiecho imaging on a 3.0 Kamille magnet is performed through the brain. Stud y is performed within 24 hours of arrival to the hospital. The craniovertebral junction is normal. The pituitary is normal. Diffusion-weighted imaging is performed. No abnormal hyperintensity is present to suggest an acute i ntracranial infarct or acute ischemic change. Mild scattered periventricular white matter changes are evident on T2 weighted sequences. Small area of enhancement remains within the left frontal lobe. Previous white matter hyperintensity in the anterior left frontal lobe, left centrum semiovale and ri ght thalamus are diminished in size. Old lacunar infarct may be within the right brainstem anterior t o the fourth ventricle, this is stable from comparison. Additional ring enhancing lesions including left cerebellum, right medial temporal lobe anterior left temporal lobe medial inferior left cerebellum medial left brain stem, right proximal temporal lobe, trilobar regions, peripheral right parietal lobe Ventricles and sulci are appropriate for the patient age. IMPRESSION: 1. Previous multiple ring-enhancing lesions largely resolved over the interval. Small residual area o f enhancement may remain in the anterior left centrum semiovale. There are some increased scattered a reas of white matter change in the periventricular white matter and centrum semiovale. [facility], , 06/02/2024 1:04 PM
== END | disposition home or self-care (01) ==
LOC: RADMRIMAIN 11:33
PROVIDERS: ATTEND Radiology Radiation Oncology
DX: C79.31 Secondary malignant neoplasm of brain (principal); C34.91 Malignant neoplasm of unspecified part of right bronchus or lung; G93.89 Other specified disorders of brain
CPT/HCPCS: 70553; A9585

== ENCOUNTER → 2024-06-06 | Outpatient (CLI) | payer OTHER ==
[2024-06-06 09:43] LABS: African American GFR (CKD) >90 (>60 ml/min/1.73 sqM); Blood Urea Nitrogen 14 mg/dL (7-17); Non-African American GFR(CKD) 85 (>60 ml/min/1.73 sqM)
--- NOTE | 2024-06-06 11:26 | CT ---
EXAMINATION TYPE: CT ChestAbdPelvis w con DATE OF EXAM: 06/06/2024 COMPARISON: 03/27/2024 HISTORY: lung cancer CT DLP: 1655.40 mGycm Automated exposure control for dose reduction was used. CONTRAST: CT scan of the chest, abdomen and pelvis is performed with Oral Contrast and with IV Contrast, patien t injected with 100 mL of Isovue 300. FINDINGS: CT chest: The right upper lobe anterior ill-defined mass is decreased in size from 2.7 x 1.1 cm 2.1 x 0.8 cm. M ultiple fissural and right lower lobe nodules have all decreased in the interval. For instance there is a 6.4 mm fissural nodule which was previously 7.7 mm. No new or suspicious mass is seen. There is no airspace consolidation. There is no pleural effusion or pneumothorax. The great vessels the chest are normal and is no mediastinal, hilar or axillary adenopathy No focal osseous lesions are seen. CT abdomen and pelvis: Gallbladder is normal without distention, pericholecystic fluid, wall thickening or gallstone. There is no biliary ductal dilatation. There is a vague minimally enhancing mass in the right lobe of the liver which is essentially stable or slightly enlarged compared to previous. No mass or organomegaly involving the pancreas, spleen and adrenal glands There is no solid renal mass or hydronephrosis. There is no retroperitoneal adenopathy or hemorrhage in the caliber of the abdominal aorta is normal. The bowel loops are normal in caliber and there is no dilatation or obstruction. No inflammatory cruz ges identified in the bowel wall and mesentery. There is no free intracranial air or fluid. There is no pelvic mass or adenopathy. There is no free fluid within the pelvis. No focal osseous lesions are seen. Soft tissue the abdomen and pelvis are normal. IMPRESSION: 1. Decreasing right upper lobe mass and right scattered pulmonary nodules consistent with a positive response to treatment. 2. Ill-defined mildly enhancing mass in the right lobe of liver which is either stable or slightly in creased compared to prior study. 3. No new lesions seen. 4 no focal osseous abnormalities. [facility], , 06/06/2024 11:24 AM
== END | disposition home or self-care (01) ==
LOC: RADCTMAIN 08:52
PROVIDERS: ATTEND Internal Medicine Hematology & Oncology
DX: C34.90 Malignant neoplasm of unspecified part of unspecified bronchus or lung
CPT/HCPCS: 36415; 71260; 74177; 82565; 84520

== ENCOUNTER 2024-07-18 11:56 | Inpatient (IN) | payer BC, OTHER ==
--- NOTE | 2024-07-18 12:23 | ED ---
General Adult HPI - General Chief complaint: Recheck/Abnormal Lab/Rx Stated complaint: Hypertension Time Seen by Provider: 07/18/24 12:13 Source: patient, RN notes reviewed Limitations: no limitations - History of Present Illness Initial comments: Patient is a 64-year-old female present to the emergency department with concerns for hypotensive. Patient was sent from transfusion center. Patient has had the last couple of days of nausea vomiting and diarrhea. Patient has had minimal nasal congestion. No fever. No abdominal pain. Patient has some mild fatigue and lightheadedness with standing. Patient does have history of stage IV lung cancer. Patient is on chemotherapy. - Related Data Home Medications Medication Instructions Recorded Confirmed Aspirin 81 mg PO DAILY 07/29/14 07/18/24 Carvedilol 25 mg PO BID 07/29/14 07/18/24 Furosemide [Lasix] 20 mg PO DAILY 08/14/23 07/18/24 lisinopriL 1 tab PO DAILY 09/25/23 07/18/24 Hydrocortisone 2 tab PO DIRECTED 07/04/24 07/18/24 Magnesium Oxide [Mag-Ox] 1 tab PO DAILY 07/04/24 07/18/24 Memantine [Namenda] 1 tab PO DAILY 07/04/24 07/18/24 Potassium Chloride ER [K-Dur 20] 1 tab PO DAILY 07/04/24 07/18/24 Previous Rx's Medication Instructions Recorded Albuterol Nebulized [Ventolin 2.5 mg INHALATION RT-QID ml 07/30/23 Nebulized] Atorvastatin [Lipitor] 40 mg PO HS #15 tab 07/30/23 Ondansetron [Zofran] 4 mg PO Q4HR PRN #45 tab 07/30/23 Allergies Allergy/AdvReac Type Severity Reaction Status Date / Time No Known Allergies Allergy Verified 07/18/24 08:08 Review of Systems ROS Statement: Those systems with pertinent positive or pertinent negative responses have been documented in the HPI. ROS Other: All systems not noted in ROS Statement are negative. Constitutional: Denies: fever Eyes: Denies: eye pain ENT: Denies: ear pain Respiratory: Denies: cough, dyspnea Cardiovascular: Denies: chest pain Endocrine: Reports: as per HPI, fatigue Gastrointestinal: Denies: abdominal pain Musculoskeletal: Denies: back pain Neurological: Denies: headache, weakness, confusion Past Medical History Past Medical History: Coronary Artery Disease (CAD), Cancer, Heart Failure, GERD/Reflux, Hyperlipidemia, Hypertension, Myocardial Infarction ([place]) Additional Past Medical History / Comment(s): VOCAL CORD POLYP, lung cancer Last Myocardial Infarction Date:: 2011 History of Any Multi-Drug Resistant Organisms: None Reported Past Surgical History: Heart Catheterization With Stent, Tonsillectomy, Tubal Ligation Additional Past Surgical History / Comment(s): JHON R.K. SX, VOCAL CHORD POLYPS REMOVED x2 Past Anesthesia/Blood Transfusion Reactions: No Reported Reaction Date of Last Stent Placement:: UNK Past Psychological History: No Psychological Hx Reported Smoking Status: Former smoker Past Alcohol Use History: None Reported Past Drug Use History: None Reported - Past Family History Sister(s) Family Medical History: Cancer General Exam Limitations: no limitations General appearance: alert, in no apparent distress Head exam: Present: atraumatic, normocephalic Eye exam: Present: normal appearance ENT exam: Present: mucous membranes dry Neck exam: Present: normal inspection. Absent: tenderness, meningismus Respiratory exam: Present: normal lung sounds bilaterally Cardiovascular Exam: Present: regular rate, normal rhythm GI/Abdominal exam: Present: soft. Absent: tenderness Extremities exam: Present: normal inspection. Absent: pedal edema, calf tender ness Neurological exam: Present: alert. Absent: motor sensory deficit Psychiatric exam: Present: normal affect, normal mood Skin exam: Present: normal color Course Vital Signs 07/18/24 07/18/24 07/18/24 11:57 12:10 12:37 Temperature 97.8 F Pulse Rate 77 79 83 Pulse Rate [ 79 Hop Weigher ] Respiratory 18 18 18 Rate Blood Pressure 68/44 83/52 80/55 O2 Sat by Pulse 100 99 99 Oximetry 07/18/24 07/18/24 13:00 13:09 Temperature Pulse Rate 74 80 Pulse Rate [ Hop Weigher ] Respiratory 18 18 Rate Blood Pressure 72/54 72/54 O2 Sat by Pulse 99 99 Oximetry EKG Findings - EKG Results: EKG: interpreted by ERMD ( L [place]. Left bundle branch block. Nonspecific ST- T.), sinus rhythm Medical Decision Making - Medical Decision Making Was pt. sent in by a medical professional or institution (, PA, NEGATIVE CUTTER, urgent care, hospital, or [facility]...) When possible be specific @ -Patient was sent in by infusion center Did you speak to anyone other than the patient for history (EMS, parent, family, police, friend...)? What history was obtained from this source @ -No Did you review nursing and triage notes (agree or disagree)? Why? @ -I reviewed and agree with nursing and triage notes Were old charts reviewed (outside hosp., previous admission, EMS record, old EKG, old radiological studies, urgent care reports/EKG's, [facility] records)? Report findings @ -Previous labs reviewed including renal function Differential Diagnosis (chest pain, altered mental status, abdominal pain women, abdominal pain men, vaginal bleeding, weakness, fever, dyspnea, syncope, headache, dizziness, GI bleed, back pain, seizure, CVA, palpatations, mental health, musculoskeletal)? @ -Differential Weakness: Hypoglycemia, shock, sepsis, hyponatremia, anemia, infection, VA, ETOH, adverse medicine reaction, overdose, stroke, this is not meant to be an all-inclusive list. EKG interpreted by me (3pts min.). @ -As above X-rays interpreted by me (1pt min.). @ -Chest x-ray shows nodule, similar to previous. No acute process. CT interpreted by me (1pt min.). @ -None done U/S interpreted by me (1pt. min.). @ -None done What testing was considered but not performed or refused? (CT, X-rays, U/S, labs)? Why? @ -None What meds were considered but not given or refused? Why? @ -Considered pressors however after fluid bolus systolic blood pressure is 90 Did you discuss the management of the patient with other professionals (professionals i.e. , PA, NEGATIVE CUTTER, lab, RT, psych nurse, long term care social worker, marketing senior recruiter, teacher, naval gunfire liaison officer, immigration case worker)? Give summary @ -No Was smoking cessation discussed for >3mins.? @ -No Was critical care preformed (if so, how long)? @ -31 minutes critical care time Were there social determinants of health that impacted care today? How? (Homelessness, low income, unemployed, alcoholism, drug addiction, transportation, low edu. Level, literacy, decrease access to med. care, snf, rehab)? @ -No Was there de-escalation of care discussed even if they declined (Discuss DNR or withdrawal of care, Hospice)? DNR status @ -No What co-morbidities impacted this encounter? (DM, HTN, Smoking, COPD, CAD, Cancer, CVA, ARF, Chemo, Hep., AIDS, mental health diagnosis, sleep apnea, morbid obesity)? @ -History of metastatic lung cancer Was patient admitted / discharged? Hospital course, mention meds given and route, prescriptions, significant lab abnormalities, going to OR and other pertinent info. @ -Patient presents with hypotension. Blood pressure improved with fluid bolus. Patient will be admitted for further fluids. Patient symptomatically is improved. Cannot rule out early urinary tract infection however is likely contaminant. Patient will be provided a single dose of antibiotics pending culture Undiagnosed new problem with uncertain prognosis? @ -No Drug Therapy requiring intensive monitoring for toxicity (Heparin, Nitro, Insulin, Cardizem)? @ -No Were any procedures done? @ -No Diagnosis/symptom? @ -Hypotension Acute, or Chronic, or Acute on Chronic? @ -Acute Uncomplicated (without systemic symptoms) or Complicated (systemic symptoms)? @ -Default Side effects of treatment? @ -No Exacerbation, Progression, or Severe Exacerbation? @ -No Poses a threat to life or bodily function? How? (Chest pain, [place], [place], pneumonia, PE, COPD, DKA, ARF, appy, cholecystitis, CVA, Diverticulitis, Homicidal, Suicidal, threat to staff... and all critical care pts) @ -To multiple organ dysfunction - Lab Data Result diagrams: 07/18/24 12:27 07/18/24 13:09 Lab Results 07/18/24 07/18/24 07/18/24 Range/Units 12:27 12:27 12:27 WBC 2.1 L (3.8-10.6) k/uL RBC 3.37 L (3.80-5.40) m/uL Hgb 11.8 (11.4-16.0) gm/dL Hct 33.4 L (34.0-46.0) % MCV 99.1 (80.0-100.0) fL MCH 35.1 H (25.0-35.0) pg MCHC 35.4 (31.0-37.0) g/dL RDW 16.7 H (11.5-15.5) % Plt Count 83 L (150-450) k/uL MPV 7.2 Neutrophils % (Manual) 60 % Band Neuts % (Manual) 9 % Lymphocytes % (Manual) 23 % Monocytes % (Manual) 8 % Neutrophils # (Manual) 1.40 (1.3-7.7) k/uL Lymphocytes # (Manual) 0.48 L (1.0-4.8) k/uL Monocytes # (Manual) 0.17 (0-1.0) k/uL Nucleated RBCs 0 (0-0) /100 WBC Manual Slide Review Performed Anisocytosis Slight Macrocytosis Slight Sodium (137-145) mmol/L Potassium (3.5-5.1) mmol/L Chloride (98-107) mmol/L Carbon Dioxide (22-30) mmol/L Anion Gap mmol/L BUN (7-17) mg/dL Creatinine (0.52-1.04) mg/dL Est GFR (CKD-EPI)AfAm (>60 ml/min/1.73 sqM) Est GFR (CKD-EPI)NonAf (>60 ml/min/1.73 sqM) Glucose (74-99) mg/dL Plasma Lactic Acid [place] 1.5 (0.7-2.0) mmol/L Calcium (8.4-10.2) mg/dL Magnesium (1.6-2.3) mg/dL Total Bilirubin (0.2-1.3) mg/dL AST (14-36) U/L ALT (4-34) U/L Alkaline Phosphatase (38-126) U/L Total Protein (6.3-8.2) g/dL Albumin (3.5-5.0) g/dL Urine Color Urine Appearance (Clear) Urine pH (5.0-8.0) Ur Specific Jackson (1.001-1.035) Urine Protein (Negative) Urine Glucose (UA) (Negative) Urine Ketones (Negative) Urine Blood (Negative) Urine Nitrite (Negative) Urine Bilirubin (Negative) Urine Urobilinogen (<2.0) mg/dL Ur Leukocyte Esterase (Negative) Urine RBC (0-5) /hpf Urine WBC (0-5) /hpf Ur Squamous Epith Cells (0-4) /hpf Urine Bacteria (None) /hpf Hyaline Casts (0-2) /lpf Urine Mucus (None) /hpf Influenza Type A (PCR) Not Detected (Not Detectd) Influenza Type B (PCR) Not Detected (Not Detectd) RSV (PCR) Not Detected (Not Detectd) SARS-CoV-2 (PCR) Not Detected (Not Detectd) 07/18/24 07/18/24 Range/Units 13:09 13:09 WBC (3.8-10.6) k/uL RBC (3.80-5.40) m/uL Hgb (11.4-16.0) gm/dL Hct (34.0-46.0) % MCV (80.0-100.0) fL MCH (25.0-35.0) pg MCHC (31.0-37.0) g/dL RDW (11.5-15.5) % Plt Count (150-450) k/uL MPV Neutrophils % (Manual) % Band Neuts % (Manual) % Lymphocytes % (Manual) % Monocytes % (Manual) % Neutrophils # (Manual) (1.3-7.7) k/uL Lymphocytes # (Manual) (1.0-4.8) k/uL Monocytes # (Manual) (0-1.0) k/uL Nucleated RBCs (0-0) /100 WBC Manual Slide Review Anisocytosis Macrocytosis Sodium 130 L (137-145) mmol/L Potassium 3.2 L (3.5-5.1) mmol/L Chloride 101 (98-107) mmol/L Carbon Dioxide 22 (22-30) mmol/L Anion Gap 7 mmol/L BUN 19 H (7-17) mg/dL Creatinine 1.29 H (0.52-1.04) mg/dL Est GFR (CKD-EPI)AfAm 51 (>60 ml/min/1.73 sqM) Est GFR (CKD-EPI)NonAf 45 (>60 ml/min/1.73 sqM) Glucose 127 H (74-99) mg/dL Plasma Lactic Acid [place] (0.7-2.0) mmol/L Calcium 7.0 L (8.4-10.2) mg/dL Magnesium 1.7 (1.6-2.3) mg/dL Total Bilirubin 0.6 (0.2-1.3) mg/dL AST 14 (14-36) U/L ALT 15 (4-34) U/L Alkaline Phosphatase 63 (38-126) U/L Total Protein 5.3 L (6.3-8.2) g/dL Albumin 2.8 L (3.5-5.0) g/dL Urine Color Light [place] Urine Appearance Turbid H (Clear) Urine pH 5.5 (5.0-8.0) Ur Specific Jackson 1.020 (1.001-1.035) Urine Protein 2+ H (Negative) Urine Glucose (UA) 1+ H (Negative) Urine Ketones Negative (Negative) Urine Blood Small H (Negative) Urine Nitrite Negative (Negative) Urine Bilirubin Negative (Negative) Urine Urobilinogen <2.0 (<2.0) mg/dL Ur Leukocyte Esterase Negative (Negative) Urine RBC 2 (0-5) /hpf Urine WBC 8 H (0-5) /hpf Ur Squamous Epith Cells 11 H (0-4) /hpf Urine Bacteria Occasional H (None) /hpf Hyaline Casts 23 H (0-2) /lpf Urine Mucus Many H (None) /hpf Influenza Type A (PCR) (Not Detectd) Influenza Type B (PCR) (Not Detectd) RSV (PCR) (Not Detectd) SARS-CoV-2 (PCR) (Not Detectd) Critical Care Time Critical Care Time: Yes Disposition Clinical Impression: Hypotension Disposition: ADMITTED IP TO THIS [facility] Condition: Serious Is patient prescribed a controlled substance at d/c from ED?: No Referrals: Hari Navarrete DO [Primary Care Provider] - 1-2 days Time of Disposition: 13:57
[2024-07-18] MEDS: SODIUM CHLORIDE 0.9% 1,000 ML IV STA ×3 (12:28→13:12)
[2024-07-18 12:35] LABS: Anisocytosis Slight; HCT 33.4 % (34.0-46.0); HGB 11.8 gm/dL (11.4-16.0); MCH 35.1 pg (25.0-35.0); MCHC 35.4 g/dL (31.0-37.0); MCV 99.1 fL (80.0-100.0); Macrocytosis Slight; Mean Platelet Volume 7.2; RBC 3.37 m/uL (3.80-5.40); RDW 16.7 % (11.5-15.5); WBC 2.1 k/uL (3.8-10.6)
[2024-07-18] MEDS: SODIUM CHLORIDE 0.9% 500 ML 500 ML IV STA (12:40)
[2024-07-18 12:53] LABS: Platelet Count 83 k/uL (150-450)
[2024-07-18 13:16] LABS: Band Neutrophils % 9 %; Lymphocytes # (M) 0.48 k/uL (1.0-4.8); Monocytes # (M) 0.17 k/uL (0-1.0); Neutrophils % (M) 60 %; Nucleated Red Blood Cells 0 /100 WBC (0-0); Total Cells Counted 100
[2024-07-18 13:26] LABS: Appearance,Urine Turbid (Clear); Bacteria,Urine Occasional /hpf; Bilirubin,Urine Negative (Negative); Blood,Urine Small (Negative); Color,Urine Light Orange; Glucose,Urine (UA) 1+ (Negative); Hyaline Casts,Urine 23 /lpf (0-2); Ketones,Urine Negative (Negative); Leukocyte Esterase,Urine Negative (Negative); Mucus,Urine Many /hpf; Nitrite,Urine Negative (Negative); PH, Urine 5.5 (5.0-8.0); Protein,Urine 2+ (Negative); RBC,Urine 2 /hpf (0-5); Squamous Epithelial Cell,Urine 11 /hpf (0-4); Urobilinogen,Urine <2.0 mg/dL (<2.0); WBC,Urine 8 /hpf (0-5)
--- NOTE | 2024-07-18 13:28 | XR ---
EXAMINATION TYPE: XR chest 2V DATE OF EXAM: 07/18/2024 12:48 PM COMPARISON: 07/19/[address] 06/06/2024 CLINICAL INDICATION: Female, 64 years old with history of Weakness, , TECHNIQUE: AP and lateral views FINDINGS: The heart is normal size. Prominent epicardial fat pad noted at the cardiac apex and medial right bas e. Known focal opacity medial right upper lobe. Otherwise, no consolidation or pleural effusion. IMPRESSION: Known abnormal opacity medial right upper lobe. No acute process seen. [facility], , 07/18/2024 1:26 PM
[2024-07-18 13:42] LABS: ALT 15 U/L (4-34); AST 14 U/L (14-36); African American GFR (CKD) 51 (>60 ml/min/1.73 sqM); Albumin 2.8 g/dL (3.5-5.0); Alkaline Phosphatase 63 U/L (38-126); Anion Gap 7 mmol/L; Blood Urea Nitrogen 19 mg/dL (7-17); Carbon Dioxide 22 mmol/L (22-30); Chloride 101 mmol/L (98-107); Glucose 127 mg/dL (74-99); Magnesium 1.7 mg/dL (1.6-2.3); Non-African American GFR(CKD) 45 (>60 ml/min/1.73 sqM); Potassium 3.2 mmol/L (3.5-5.1); Sodium 130 mmol/L (137-145); Total Bilirubin 0.6 mg/dL (0.2-1.3); Total Protein 5.3 g/dL (6.3-8.2)
[2024-07-18] MEDS ORDERED: ACETAMINOPHEN TAB 325 MG TAB PO PRN (13:58)
[2024-07-18] MEDS ORDERED: NALOXONE 0.4 MG/ML 1 ML VIAL IV PRN (13:58)
[2024-07-18] MEDS ORDERED: ONDANSETRON 4 MG/2 ML VIAL IVP PRN (13:58)
[2024-07-18] MEDS: POTASSIUM CHLORIDE ER 20 MEQ TAB.ER PO STA (14:16)
[2024-07-18] MEDS: cefTRIAXone IN SWFI 1,000 MG/10 ML SYRINGE IVP STA (14:17)
[2024-07-18] MEDS: POTASSIUM CHLORIDE 10 MEQ in WATER FOR INJECTION 1 100ML.BAG IVPB STA (14:18)
[2024-07-18] MEDS ORDERED: ALBUTEROL NEBULIZED 2.5 MG/3 ML INHALATION PRN (14:54)
--- NOTE | 2024-07-18 14:56 | P.HPIM ---
History of Present Illness H&P Date: 07/18/24 History of present illness; patient is a 64-year-old lady with past medical history significant for metastatic small cell carcinoma, COPD who was sent to the ER from the transfusion center for hypotension. Patient stated that for the last couple of days she has been feeling kind of tired and lethargic. Patient has been complaining of nausea and vomiting and decreased appetite. Patient also having loose stools which she attributed to her chemotherapy. There was no complaint of fever or chills. Patient denies any lightheaded or dizziness. There is no complaint any falls at home. Patient was checking her blood pressure at home and was normal. Denies any chest pain or shortness of breath. Patient went for her chemotherapy this morning and was found to have low blood pressure and was sent to the ER. Initial lab work done in the ER showed WBC 2.1, hemoglobin 11.8, platelet count 83, sodium 132, potassium 3.2, BUN 19, creatinine 1.29, Influenza A not detected Influenza B not detected RSV not detected COVID-19 not detected EKG done in the ER showed heart rate of 81 , no ST segment elevation or depression seen, no T-wave inversions seen. Chest x-ray done in the ER showed no acute process Patient admitted to internal medicine service REVIEW OF SYSTEMS: CONSTITUTIONAL: As mentioned above HEENT: No recent visual problems or hearing problems. Denied any sore throat. CARDIOVASCULAR: No chest pain, orthopnea, PND, no palpitations, no syncope. PULMONARY: As mentioned above GASTROINTESTINAL: As mentioned above. NEUROLOGICAL: No headaches, no weakness, no numbness. HEMATOLOGICAL: Denies any bleeding or petechiae. GENITOURINARY: Denies any burning micturition, frequency, or urgency. MUSCULOSKELETAL/RHEUMATOLOGICAL: Denies any joint pain, swelling, or any muscle pain. ENDOCRINE: Denies any polyuria or polydipsia. The rest of the 14-point review of systems is negative. PHYSICAL EXAMINATION: GENERAL: The patient is alert and oriented x3, ill looking HEENT: Pupils are round and equally reacting to light. EOMI. No scleral icterus. No conjunctival pallor. Normocephalic, atraumatic. No pharyngeal erythema. No thyromegaly. CARDIOVASCULAR: S1 and S2 present. No murmurs, rubs, or gallops. PULMONARY: Chest is clear to auscultation, no wheezing or crackles. ABDOMEN: Soft, nontender, nondistended, normoactive bowel sounds. No palpable organomegaly. MUSCULOSKELETAL: No joint swelling or deformity. EXTREMITIES: No cyanosis, clubbing, or pedal edema. NEUROLOGICAL: Gross neurological examination did not reveal any focal deficits. SKIN: No rashes. Assessment and plan Hyponatremia Hypokalemia Bicytopenia Metastatic small cell carcinoma Coronary artery disease, prior stenting of the LAD Hypertension Hyperlipidemia Monitor vital signs Monitor CBC Monitor CMP Continue telemetry monitoring Ordered blood cultures Ordered urine cultures Ordered CRP, ESR Ordered IV fluids Hold blood pressure medications Continue antiemetics Consult hematology oncology Consult ID Labs and medication were reviewed.. Continue same treatment. Continue with symptomatic treatment. Resume home medication. Monitor labs and vitals. DVT and GI prophylaxis. Further recommendations as per clinical course of the patient Dictation was produced using [employer] dictation software. please excuse any grammatical, word or spelling errors. Past Medical History Past Medical History: Coronary Artery Disease (CAD), Cancer, Heart Failure, GERD/Reflux, Hyperlipidemia, Hypertension, Myocardial Infarction ([place]) Additional Past Medical History / Comment(s): VOCAL CORD POLYP, lung cancer Last Myocardial Infarction Date:: 2011 History of Any Multi-Drug Resistant Organisms: None Reported Past Surgical History: Heart Catheterization With Stent, Tonsillectomy, Tubal Ligation Additional Past Surgical History / Comment(s): JHON R.K. SX, VOCAL CHORD POLYPS REMOVED x2 Past Anesthesia/Blood Transfusion Reactions: No Reported Reaction Date of Last Stent Placement:: UNK Past Psychological History: No Psychological Hx Reported Smoking Status: Former smoker Past Alcohol Use History: None Reported Past Drug Use History: None Reported - Past Family History Sister(s) Family Medical History: Cancer Medications and Allergies Home Medications Medication Instructions Recorded Confirmed Type Aspirin 81 mg PO DAILY 07/29/14 07/18/24 History Carvedilol 25 mg PO BID 07/29/14 07/18/24 History Ondansetron [Zofran] 4 mg PO Q4HR PRN #45 tab 07/30/23 07/18/24 Rx Furosemide [Lasix] 20 mg PO DAILY 08/14/23 07/18/24 History Hydrocortisone 2 tab PO DIRECTED 07/04/24 07/18/24 History Magnesium Oxide [Mag-Ox] 1 tab PO DAILY 07/04/24 07/18/24 History Potassium Chloride ER [K-Dur 20] 1 tab PO DAILY 07/04/24 07/18/24 History Albuterol Nebulized [Ventolin 2.5 mg INHALATION RT-QID PRN 07/18/24 07/18/24 History Nebulized] Atorvastatin [Lipitor] 40 mg PO DAILY 07/18/24 07/18/24 History Hydrocortisone 5 mg PO HS 07/18/24 07/18/24 History Memantine [Namenda] 10 mg PO BID 07/18/24 07/18/24 History lisinopriL [Zestril] 5 mg PO DAILY 07/18/24 07/18/24 History Allergies Allergy/AdvReac Type Severity Reaction Status Date / Time No Known Allergies Allergy Verified 07/18/24 14:41 Physical Exam Vitals: Vital Signs Temp Pulse Pulse Resp BP Pulse Ox 07/18/24 14:33 71 18 96/58 100 07/18/24 14:00 75 18 91/61 98 07/18/24 13:09 80 18 72/54 99 07/18/24 13:00 74 18 72/54 99 07/18/24 12:37 83 18 80/55 99 07/18/24 12:10 79 79 18 83/52 99 07/18/24 11:57 97.8 F 77 18 68/44 100 Intake and Output 07/17/24 07/18/24 07/18/24 22:59 06:59 14:59 Other: Weight 75.75 kg Results CBC & Chem 7: 07/18/24 12:27 07/18/24 13:09 Labs: Abnormal Lab Results - Last 24 Hours (Table) 07/18/24 07/18/24 07/18/24 Range/Units 12:27 13:09 13:09 WBC 2.1 L (3.8-10.6) k/uL RBC 3.37 L (3.80-5.40) m/uL Hct 33.4 L (34.0-46.0) % MCH 35.1 H (25.0-35.0) pg RDW 16.7 H (11.5-15.5) % Plt Count 83 L (150-450) k/uL Lymphocytes # (Manual) 0.48 L (1.0-4.8) k/uL Sodium 130 L (137-145) mmol/L Potassium 3.2 L (3.5-5.1) mmol/L BUN 19 H (7-17) mg/dL Creatinine 1.29 H (0.52-1.04) mg/dL Glucose 127 H (74-99) mg/dL Calcium 7.0 L (8.4-10.2) mg/dL Total Protein 5.3 L (6.3-8.2) g/dL Albumin 2.8 L (3.5-5.0) g/dL Urine Appearance Turbid H (Clear) Urine Protein 2+ H (Negative) Urine Glucose (UA) 1+ H (Negative) Urine Blood Small H (Negative) Urine WBC 8 H (0-5) /hpf Ur Squamous Epith Cells 11 H (0-4) /hpf Urine Bacteria Occasional H (None) /hpf Hyaline Casts 23 H (0-2) /lpf Urine Mucus Many H (None) /hpf
[2024-07-18] MEDS: CALCIUM GLUCONATE IN NACL 1 GM in SALINE 1 100ML.BAG IVPB ONE (15:06)
--- NOTE | 2024-07-18 18:56 | P.CONS ---
History of Present Illness - Reason for Consult Consult date: 07/18/24 lung cancer Requesting physician: Faizan Bender - Chief Complaint hypotension, dizziness - History of Present Illness Ms. Underwood is a 64 yo female patient with a significant history of COPD and small cell lung cancer. She is a patient of Dr. Thornton. Patient was initially seen on consult at [facility] on 07/19/23 for abn findings on CT chest w/wo 07/10/23. She came to hospital for progressive SOB since Sept after deing diagnosed with Covid. The CT reported rt pl effusion, septal thickening with ground glass opacities, RLL nodule, conglomerate mediastinal LAD, subcarinal mass 5.6 x 3.4 cm, microinvasion of the esophagus is not excluded, AP LN 18mm, prevascular space LN 5.1 x 2.2 cm, scattered lesions throughout liver largest measuring 2.8 cm in rt hepatic lobe, and 3.2cm in lt hepatic lobe, gastric hepatic LN measuring 7mm, nodular changes to adrenal glands. CTA was neg for PE, reported concerning findings most consistent with CT chest report. She had a bronch and biopsy with Dr. Moura 07/18/23 path positive for SCLC from rt mainstem transbronchial biopsy, synaptophysin, CD56 positive, Ki67 proliferative index greater then 20% of tumor cells. Station 4R and washings were non-diagnostic, rt mainstem brushings were suggestive of sm cell carcinoma. Brain MRI showed a small focus of enhancement in lt frontal lobe measuring 5mm, she is asymptomatic form the same, she did meet with Dr. Oneill, no treatment planned yet. CT AP reported multiple hepatic lesions, no ductal dilation, renal cortical cysts, non-specific thickening of bilateral adrenal glands, no ann marie mets. Because of symptoms and plans for rehab after prolonged hospitalization, she did receive 1st cycle of carbo/BARBER TOOL SHARPENER inpt, which she tolerated very well, no significant SE or heme toxicities. She was discharged and went to rehab for 1 week. When seen in ofc today she is s/p 1 week in rehab. Status post 6 cycles of carboplatin and BARBER TOOL SHARPENER- 16, completing those on 12/07/23. Tecentriq was added on with cycle 5 onwards. She was unable to receive it with the first 4 cycles, due to insurance issues. S he then started immunotherapy alone. Repeat MRI ordered by radiation oncology in early 04/09 unfortunately showed development of brain metastases. CT chest abdomen and pelvis also showed progression, with development of multiple new lung nodules, progressive mediastinal adenopathy, as well as progressive disease in the liver. Regimen was discontinued, and she was referred back to radiation oncology for whole brain radiation. After completion of the same, she started second line treatment with carboplatin and irinotecan, on 04/22/24. She completed cycle 3, day 8 on 07/11, treatment today was d/c due to noted hypotension and dizziness. Patient was brought to the ER for further evaluation, and BP was noted at 68/44. She was given fluid boluses and BP has improved. Patient states over the last 3 days she has had increased n/v/d, without significant improvement with supportive medications. This morning she took her BP medications and then began to have sweats and dizziness. On admit chest x-ray showed known abnormal opacity of the medial right upper lobe with no acute processes seen. WBC 2.1, ANC 1.4, hemoglobin 11.8, platelets 83,000. Creatinine 1.29, creatinine GFR 45. Sodium 130, potassium 3.9, magnesium 1.7. LFTs and bilirubin WNL. UA showing possible UTI versus contamination. 1 dose Rocephin has been given. Viral panel negative. Potassium supplementation has been ordered. At today's visit patient is reporting significant improvement in symptoms. Dizziness has resolved. Review of Systems 10 point ROS is negative except as stated in the HPI Past Medical History Past Medical History: Coronary Artery Disease (CAD), Cancer, Heart Failure, GERD/Reflux, Hyperlipidemia, Hypertension, Myocardial Infarction ([place]) Additional Past Medical History / Comment(s): VOCAL CORD POLYP, lung cancer Last Myocardial Infarction Date:: 2011 History of Any Multi-Drug Resistant Organisms: None Reported Past Surgical History: Heart Catheterization With Stent, Tonsillectomy, Tubal Ligation Additional Past Surgical History / Comment(s): JHON R.K. SX, VOCAL CHORD POLYPS REMOVED x2 Past Anesthesia/Blood Transfusion Reactions: No Reported Reaction Date of Last Stent Placement:: UNK Past Psychological History: No Psychological Hx Reported Smoking Status: Former smoker Past Alcohol Use History: None Reported Past Drug Use History: None Reported - Past Family History Sister(s) Family Medical History: Cancer Medications and Allergies Home Medications Medication Instructions Recorded Confirmed Type Aspirin 81 mg PO DAILY 07/29/14 07/18/24 History Carvedilol 25 mg PO BID 07/29/14 07/18/24 History Ondansetron [Zofran] 4 mg PO Q4HR PRN #45 tab 07/30/23 07/18/24 Rx Furosemide [Lasix] 40 mg PO DAILY 08/14/23 07/18/24 History Hydrocortisone 10 mg PO DAILY 07/04/24 07/18/24 History Magnesium Oxide [Mag-Ox] 400 mg PO DAILY 07/04/24 07/18/24 History Potassium Chloride ER [K-Dur 20] 20 meq PO DAILY 07/04/24 07/18/24 History Albuterol Nebulized [Ventolin 2.5 mg INHALATION RT-QID PRN 07/18/24 07/18/24 History Nebulized] Atorvastatin [Lipitor] 40 mg PO DAILY 07/18/24 07/18/24 History Hydrocortisone 5 mg PO HS 07/18/24 07/18/24 History Memantine [Namenda] 10 mg PO BID 07/18/24 07/18/24 History lisinopriL [Zestril] 5 mg PO DAILY 07/18/24 07/18/24 History Allergies Allergy/AdvReac Type Severity Reaction Status Date / Time No Known Allergies Allergy Verified 07/18/24 14:41 Physical Exam Vitals: Vital Signs Temp Pulse Pulse Resp BP Pulse Ox 07/18/24 17:02 90 18 85/43 98 07/18/24 15:13 85 18 118/102 98 07/18/24 14:33 71 18 96/58 100 07/18/24 14:00 75 18 91/61 98 07/18/24 13:09 80 18 72/54 99 07/18/24 13:00 74 18 72/54 99 07/18/24 12:37 83 18 80/55 99 07/18/24 12:10 79 79 18 83/52 99 07/18/24 11:57 97.8 F 77 18 68/44 100 Intake and Output 07/18/24 07/18/24 07/18/24 06:59 14:59 22:59 Other: Weight 75.75 kg - Constitutional General appearance: average body habitus, no acute distress - EENT Eyes: anicteric sclerae, EOMI ENT: hearing grossly normal - Respiratory Respiratory: bilateral: CTA - Cardiovascular Rhythm: regular - Gastrointestinal General gastrointestinal: soft, no tenderness - Integumentary Integumentary: no cyanotic, no jaundiced - Neurologic Neurologic: CNII-XII intact - Psychiatric Psychiatric: A&O x's 3 Results CBC & Chem 7: 07/18/24 12:27 07/18/24 13:09 Labs: Abnormal Lab Results - Last 24 Hours (Table) 07/18/24 07/18/24 07/18/24 Range/Units 12:27 13:09 13:09 WBC 2.1 L (3.8-10.6) k/uL RBC 3.37 L (3.80-5.40) m/uL Hct 33.4 L (34.0-46.0) % MCH 35.1 H (25.0-35.0) pg RDW 16.7 H (11.5-15.5) % Plt Count 83 L (150-450) k/uL Lymphocytes # (Manual) 0.48 L (1.0-4.8) k/uL Sodium 130 L (137-145) mmol/L Potassium 3.2 L (3.5-5.1) mmol/L BUN 19 H (7-17) mg/dL Creatinine 1.29 H (0.52-1.04) mg/dL Glucose 127 H (74-99) mg/dL Calcium 7.0 L (8.4-10.2) mg/dL Total Protein 5.3 L (6.3-8.2) g/dL Albumin 2.8 L (3.5-5.0) g/dL Urine Appearance Turbid H (Clear) Urine Protein 2+ H (Negative) Urine Glucose (UA) 1+ H (Negative) Urine Blood Small H (Negative) Urine WBC 8 H (0-5) /hpf Ur Squamous Epith Cells 11 H (0-4) /hpf Urine Bacteria Occasional H (None) /hpf Hyaline Casts 23 H (0-2) /lpf Urine Mucus Many H (None) /hpf Chest x-ray: report reviewed Assessment and Plan (1) Hypotension Current Visit: Yes Status: Acute Priority: High Code(s): I95.9 - HYPOTENSION, UNSPECIFIED SNOMED Code(s): 07971974 (2) Small cell lung carcinoma Current Visit: Yes Status: Acute Priority: High Code(s): C34.90 - MALIGNANT NEOPLASM OF UNSP PART OF UNSP BRONCHUS OR LUNG SNOMED Code(s): 027444782 Plan: N/V/D, hypotension: Patient was brought to the ER for further evaluation from [facility] after noted hypotension and dizziness during treatment. Upon presentation BP was noted at 68/44. She was given fluid boluses and BP has improved with systolic BP in the 90s. Patient states over the last 3 days she has had increased n/v/d, w ithout significant improvement with supportive medications. This morning she took her BP medications and then began to have sweats and dizziness. -On admit chest x-ray showed known abnormal opacity of the medial right upper lobe with no acute processes seen. WBC 2.1, ANC 1.4, hemoglobin 11.8, platelets 83,000. Creatinine 1.29, creatinine GFR 45. Sodium 130, potassium 3.9, magnesium 1.7. LFTs and bilirubin WNL. UA showing possible UTI versus contamination. 1 dose Rocephin has been given. Urine culture, blood cultures, and stool studies ordered. Viral panel negative. Potassium supplementation ordered -Continue supportive care measures. Anti-nausea and anti-diarrheal use discussed in detail with patient and family Metastatic small cell lung cancer: -History as dictated in the HPI -Currently on treatment with carboplatin and irinotecan, completing cycle 3, day 8 on 07/11. Treatment today was d/c due to noted hypotension and dizziness. -Clinic f/u scheduled on 07/23, will revaluate at that time, and proceed with treatment if symptoms are improved. Treatment response scans planned s/p cycle 4 Doctor attests: I performed a history and physical examination of this patient, developed impression and plan of care. Discussed with dictator. I agree with dictators note, documented as a scribe.
[2024-07-18] MEDS: HYDROCORTISONE 10 MG TAB PO SCH (21:34)
[2024-07-18] MEDS: MEMANTINE 10 MG TAB PO SCH (21:34)
[2024-07-19 07:22] LABS: Anisocytosis Slight; Basophils % (A) 0 %; Eosinophils % (A) 0 %; HCT 28.1 % (34.0-46.0); Lymphocytes # (A) 0.3 k/uL (1.0-4.8); Lymphocytes % (A) 21 %; MCH 34.5 pg (25.0-35.0); MCHC 33.5 g/dL (31.0-37.0); MCV 103.1 fL (80.0-100.0); Macrocytosis Moderate; Mean Platelet Volume 7.6; Monocytes # (A) 0.1 k/uL (0-1.0); Monocytes % (A) 6 %; Neutrophils # (A) 1.2 k/uL (1.3-7.7); Neutrophils % (A) 70 %; RBC 2.73 m/uL (3.80-5.40); WBC 1.7 k/uL (3.8-10.6)
[2024-07-19 07:32] LABS: HGB 9.4 gm/dL (11.4-16.0)
[2024-07-19 07:40] LABS: Platelet Count 60 k/uL (150-450)
[2024-07-19 08:05] LABS: ALT 13 U/L (4-34); AST 14 U/L (14-36); African American GFR (CKD) >90 (>60 ml/min/1.73 sqM); Albumin 2.8 g/dL (3.5-5.0); Alkaline Phosphatase 55 U/L (38-126); Anion Gap 8 mmol/L; Blood Urea Nitrogen 16 mg/dL (7-17); Calcium 8.2 mg/dL (8.4-10.2); Carbon Dioxide 17 mmol/L (22-30); Chloride 113 mmol/L (98-107); Glucose 132 mg/dL (74-99); Non-African American GFR(CKD) >90 (>60 ml/min/1.73 sqM); Potassium 3.7 mmol/L (3.5-5.1); Sodium 138 mmol/L (137-145); Total Bilirubin 0.3 mg/dL (0.2-1.3); Total Protein 5.2 g/dL (6.3-8.2)
--- NOTE | 2024-07-19 09:04 | P.CONS ---
History of Present Illness - Reason for Consult Consult date: 07/18/24 SIRS, immunosuppressed Requesting physician: Thanh Blum - Chief Complaint Weakness, vomiting diarrhea x few days - History of Present Illness Patient is a 64-year-old female with a past medical history significant for coronary artery disease hypertension hyperlipidemia MA reflux history of lung cancer in this patient is currently on chemotherapy patient went to the chemo this morning and apparently the patient was noticed to have low blood pressure for the patient has been sent to the ER for further evaluation patient been complaining of nausea vomiting and diarrhea for the last 2 to 3 days patient has been complaining of multiple episodes of loose stool but denies any blood or mucus in the stool and no significant abdominal pain denies any fever on presentation to the hospital patient was afebrile and no fever have been ordered subsequently patient was nontachycardic or hypoxic and no need for supplemental oxygen she did have a white count of 2.1 BUN/creatinine has been mildly elevated liver enzymes are normal urine is negative influenza RSV COVID testing was negative patient did have a chest x-ray no acute processes seen. No abnormal opacity medial right upper lobe infectious disease was consulted for cirrhosis immunosuppressed she did receive a dose of Rocephin in the ER Review of Systems Positive point and negatives has been mentioned in the HPI, complete review of systems was performed and all other systems are negative Past Medical History Past Medical History: Coronary Artery Disease (CAD), Cancer, Heart Failure, GERD/Reflux, Hyperlipidemia, Hypertension, Myocardial Infarction ([place]) Additional Past Medical History / Comment(s): VOCAL CORD POLYP, lung cancer Last Myocardial Infarction Date:: 2011 History of Any Multi-Drug Resistant Organisms: None Reported Past Surgical History: Heart Catheterization With Stent, Tonsillectomy, Tubal Ligation Additional Past Surgical History / Comment(s): JHON R.K. SX, VOCAL CHORD POLYPS REMOVED x2 Past Anesthesia/Blood Transfusion Reactions: No Reported Reaction Date of Last Stent Placement:: UNK Past Psychological History: No Psychological Hx Reported Smoking Status: Former smoker Past Alcohol Use History: None Reported Past Drug Use History: None Reported - Past Family History Sister(s) Family Medical History: Cancer Medications and Allergies Home Medications Medication Instructions Recorded Confirmed Type Aspirin 81 mg PO DAILY 07/29/14 07/18/24 History Carvedilol 25 mg PO BID 07/29/14 07/18/24 History Ondansetron [Zofran] 4 mg PO Q4HR PRN #45 tab 07/30/23 07/18/24 Rx Furosemide [Lasix] 40 mg PO DAILY 08/14/23 07/18/24 History Hydrocortisone 10 mg PO DAILY 07/04/24 07/18/24 History Magnesium Oxide [Mag-Ox] 400 mg PO DAILY 07/04/24 07/18/24 History Potassium Chloride ER [K-Dur 20] 20 meq PO DAILY 07/04/24 07/18/24 History Albuterol Nebulized [Ventolin 2.5 mg INHALATION RT-QID PRN 07/18/24 07/18/24 History Nebulized] Atorvastatin [Lipitor] 40 mg PO DAILY 07/18/24 07/18/24 History Hydrocortisone 5 mg PO HS 07/18/24 07/18/24 History Memantine [Namenda] 10 mg PO BID 07/18/24 07/18/24 History lisinopriL [Zestril] 5 mg PO DAILY 07/18/24 07/18/24 History Allergies Allergy/AdvReac Type Severity Reaction Status Date / Time No Known Allergies Allergy Verified 07/18/24 14:41 Physical Exam Vitals: Vital Signs Temp Pulse Pulse Resp BP Pulse Ox 07/18/24 15:13 85 18 118/102 98 07/18/24 14:33 71 18 96/58 100 07/18/24 14:00 75 18 91/61 98 07/18/24 13:09 80 18 72/54 99 07/18/24 13:00 74 18 72/54 99 07/18/24 12:37 83 18 80/55 99 07/18/24 12:10 79 79 18 83/52 99 07/18/24 11:57 97.8 F 77 18 68/44 100 Intake and Output 07/18/24 07/18/24 07/18/24 06:59 14:59 22:59 Other: Weight 75.75 kg GENERAL DESCRIPTION: Middle-aged female lying in bed, no distress. No tachypnea or accessory muscle of respiration use. HEENT: Shows Pallor , no scleral icterus. Oral mucous membrane is dry. No pharyngeal erythema or thrush NECK: Trachea central, no thyromegaly. LUNGS: Unlabored breathing. Clear to auscultation anteriorly. No wheeze or crackle. HEART: S1, S2, regular rate and rhythm. No loud murmur ABDOMEN: Soft, no tenderness , guarding or rigidity, no organomegaly EXTREMITIES: No edema of feet. SKIN: No rash, no masses palpable. NEUROLOGICAL: The patient is awake, alert, oriented x3, mood and affect normal. Results CBC & Chem 7: 07/19/24 06:25 07/19/24 06:25 Labs: Abnormal Lab Results - Last 24 Hours (Table) 07/18/24 07/18/24 07/18/24 Range/Units 12:27 13:09 13:09 WBC 2.1 L (3.8-10.6) k/uL RBC 3.37 L (3.80-5.40) m/uL Hct 33.4 L (34.0-46.0) % MCH 35.1 H (25.0-35.0) pg RDW 16.7 H (11.5-15.5) % Plt Count 83 L (150-450) k/uL Lymphocytes # (Manual) 0.48 L (1.0-4.8) k/uL Sodium 130 L (137-145) mmol/L Potassium 3.2 L (3.5-5.1) mmol/L BUN 19 H (7-17) mg/dL Creatinine 1.29 H (0.52-1.04) mg/dL Glucose 127 H (74-99) mg/dL Calcium 7.0 L (8.4-10.2) mg/dL Total Protein 5.3 L (6.3-8.2) g/dL Albumin 2.8 L (3.5-5.0) g/dL Urine Appearance Turbid H (Clear) Urine Protein 2+ H (Negative) Urine Glucose (UA) 1+ H (Negative) Urine Blood Small H (Negative) Urine WBC 8 H (0-5) /hpf Ur Squamous Epith Cells 11 H (0-4) /hpf Urine Bacteria Occasional H (None) /hpf Hyaline Casts 23 H (0-2) /lpf Urine Mucus Many H (None) /hpf Assessment and Plan (1) Leukopenia Current Visit: Yes Status: Acute Code(s): D72.819 - DECREASED WHITE BLOOD CELL COUNT, UNSPECIFIED SNOMED Code(s): 92392648 (2) Diarrhea Current Visit: Yes Status: Acute Code(s): R19.7 - DIARRHEA, UNSPECIFIED SNOMED Code(s): 18081308 Plan: 1patient presented to hospital with low blood pressure weakness in this patient who did have nausea vomiting and diarrhea for few days before the patient was brought to the hospital questionable related to her chemotherapy patient has been exposed to antibiotics underlying infectious etiology less likely but not entirely excluded 2-we will check a stool for C. difficile and check a stool culture 3-continue with IV fluid and symptomatic treatment of her diarrhea we will add Questran. 4leukopenia more likely related to chemotherapy rather than an infectious e tiology We will follow on clinical condition and cultures to further adjust medication if needed Thank you for this consultation we will follow the patient along with you Dictation was produced using [employer] dictation software. please excuse any grammatical, word or spelling errors. Time with Patient: Greater than 30
[2024-07-19] MEDS: POTASSIUM CHLORIDE ER 20 MEQ TAB.ER PO SCH (10:05)
[2024-07-19] MEDS: PANTOPRAZOLE 40 MG/10 ML VIAL IV SCH (10:05)
[2024-07-19] MEDS: MAGNESIUM OXIDE 400 MG TAB PO SCH (10:05)
[2024-07-19] MEDS: ASPIRIN 81 MG PO SCH (10:05)
[2024-07-19] MEDS: HYDROCORTISONE 10 MG TAB PO SCH (10:06)
[2024-07-19] MEDS: ATORVASTATIN 40 MG TAB PO SCH (10:06)
[2024-07-19] MEDS: ONDANSETRON 4 MG/2 ML VIAL IVP PRN (11:02)
[2024-07-19] MEDS ORDERED: LOPERAMIDE 2 MG CAP PO PRN (12:12)
[2024-07-19] MEDS: LOPERAMIDE 2 MG CAP PO SCH (13:26)
[2024-07-19] MEDS: CHOLESTYRAMINE (WITH SUGAR) 4 GM PACKET PO SCH (13:26)
--- NOTE | 2024-07-19 13:43 | P.PN ---
Subjective Progress Note Date: 07/19/24 patient is a 64-year-old lady with past medical history significant for metastatic small cell carcinoma, COPD who was sent to the ER from the transfusion center for hypotension. Patient stated that for the last couple of days she has been feeling kind of tired and lethargic. Patient has been complaining of nausea and vomiting and decreased appetite. Patient also having loose stools which she attributed to her chemotherapy. There was no complaint of fever or chills. Patient denies any lightheaded or dizziness. There is no complaint any falls at home. Patient was checking her blood pressure at home and was normal. Denies any chest pain or shortness of breath. Patient went for her chemotherapy this morning and was found to have low blood pressure and was sent to the ER. Initial lab work done in the ER showed WBC 2.1, hemoglobin 11.8, platelet count 83, sodium 132, potassium 3.2, BUN 19, creatinine 1.29, Influenza A not detected Influenza B not detected RSV not detected COVID-19 not detected EKG done in the ER showed heart rate of 81 , no ST segment elevation or depression seen, no T-wave inversions seen. Chest x-ray done in the ER showed no acute process Patient admitted to internal medicine service 07/19. Patient seen and examined. States she feels much better. Still having diarrhea. Denies any nausea or vomiting. REVIEW OF SYSTEMS: CONSTITUTIONAL: No fever, no malaise,. CARDIOVASCULAR: No chest pain, no palpitations, no syncope. PULMONARY: No shortness of breath, no cough, GASTROINTESTINAL: As mentioned above NEUROLOGICAL: No headaches, no weakness, PHYSICAL EXAMINATION: GENERAL: The patient is alert and oriented x3, ill looking HEENT: Pupils are round and equally reacting to light. EOMI. No scleral icterus. No conjunctival pallor. Normocephalic, atraumatic. No pharyngeal erythema. No thyromegaly. CARDIOVASCULAR: S1 and S2 present. No murmurs, rubs, or gallops. PULMONARY: Chest is clear to auscultation, no wheezing or crackles. ABDOMEN: Soft, nontender, nondistended, normoactive bowel sounds. No palpable organomegaly. MUSCULOSKELETAL: No joint swelling or deformity. EXTREMITIES: No cyanosis, clubbing, or pedal edema. NEUROLOGICAL: Gross neurological examination did not reveal any focal deficits. SKIN: No rashes. Assessment and plan Hyponatremia Hypokalemia Bicytopenia Metastatic small cell carcinoma Coronary artery disease, prior stenting of the LAD Hypertension Hyperlipidemia Monitor vital signs Monitor CBC Monitor CMP Continue telemetry monitoring stool for C. difficile which was negative Ordered Questran Avoid hypotensive agents IV fluids Continue aspirin, Lipitor ID following Hemoglobin oncology following Labs and medication were reviewed.. Continue same treatment. Continue with symptomatic treatment. Resume home medication. Monitor labs and vitals. DVT and GI prophylaxis. Further recommendations as per clinical course of the patient Dictation was produced using [employer] dictation software. please excuse any grammatical, word or spelling errors. Objective - Vital Signs Vital signs: Vital Signs Temp 97.6 F 07/19/24 09:14 Pulse 79 07/19/24 09:14 Resp 18 07/19/24 09:14 BP 119/70 07/19/24 09:14 Pulse Ox 100 07/19/24 09:14 FiO2 Intake & Output 07/18/24 07/19/24 07/19/24 18:59 06:59 18:59 Intake Total 260 400 Balance 260 400 Weight 75.75 kg 177.4 kg Intake: Intake, IV Titration 260 Amount Sodium Chloride 0.9% 1, 260 000 ml @ 130 mls/hr IV . Q7H42M STA Rx#:[id number] Oral 400 Other: Voiding Method Toilet # Voids 6 # Bowel Movements 2 - Labs CBC & Chem 7: 07/19/24 06:25 07/19/24 06:25 Labs: Abnormal Lab Results - Last 24 Hours (Table) 07/18/24 07/18/24 07/18/24 Range/Units 12:27 12:27 13:09 WBC 2.1 L (3.8-10.6) k/uL RBC 3.37 L (3.80-5.40) m/uL Hgb (11.4-16.0) gm/dL Hct 33.4 L (34.0-46.0) % MCV (80.0-100.0) fL MCH 35.1 H (25.0-35.0) pg RDW 16.7 H (11.5-15.5) % Plt Count 83 L (150-450) k/uL Neutrophils # (1.3-7.7) k/uL Lymphocytes # (1.0-4.8) k/uL Lymphocytes # (Manual) 0.48 L (1.0-4.8) k/uL ESR 52 H (0-30) mm/Hr Sodium (137-145) mmol/L Potassium (3.5-5.1) mmol/L Chloride (98-107) mmol/L Carbon Dioxide (22-30) mmol/L BUN (7-17) mg/dL Creatinine (0.52-1.04) mg/dL Glucose (74-99) mg/dL Calcium (8.4-10.2) mg/dL C-Reactive Protein (0.00-0.80) mg/dL Total Protein (6.3-8.2) g/dL Albumin (3.5-5.0) g/dL Urine Appearance Turbid H (Clear) Urine Protein 2+ H (Negative) Urine Glucose (UA) 1+ H (Negative) Urine Blood Small H (Negative) Urine WBC 8 H (0-5) /hpf Ur Squamous Epith Cells 11 H (0-4) /hpf Urine Bacteria Occasional H (None) /hpf Hyaline Casts 23 H (0-2) /lpf Urine Mucus Many H (None) /hpf 07/18/24 07/18/24 07/19/24 Range/Units 13:09 13:09 06:25 WBC 1.7 L (3.8-10.6) k/uL RBC 2.73 L (3.80-5.40) m/uL Hgb 9.4 L D (11.4-16.0) gm/dL Hct 28.1 L (34.0-46.0) % MCV 103.1 H (80.0-100.0) fL MCH (25.0-35.0) pg RDW 17.0 H (11.5-15.5) % Plt Count 60 L (150-450) k/uL Neutrophils # 1.2 L (1.3-7.7) k/uL Lymphocytes # 0.3 L (1.0-4.8) k/uL Lymphocytes # (Manual) (1.0-4.8) k/uL ESR (0-30) mm/Hr Sodium 130 L (137-145) mmol/L Potassium 3.2 L (3.5-5.1) mmol/L Chloride (98-107) mmol/L Carbon Dioxide (22-30) mmol/L BUN 19 H (7-17) mg/dL Creatinine 1.29 H (0.52-1.04) mg/dL Glucose 127 H (74-99) mg/dL Calcium 7.0 L (8.4-10.2) mg/dL C-Reactive Protein 14.00 H (0.00-0.80) mg/dL Total Protein 5.3 L (6.3-8.2) g/dL Albumin 2.8 L (3.5-5.0) g/dL Urine Appearance (Clear) Urine Protein (Negative) Urine Glucose (UA) (Negative) Urine Blood (Negative) Urine WBC (0-5) /hpf Ur Squamous Epith Cells (0-4) /hpf Urine Bacteria (None) /hpf Hyaline Casts (0-2) /lpf Urine Mucus (None) /hpf 07/19/24 Range/Units 06:25 WBC (3.8-10.6) k/uL RBC (3.80-5.40) m/uL Hgb (11.4-16.0) gm/dL Hct (34.0-46.0) % MCV (80.0-100.0) fL MCH (25.0-35.0) pg RDW (11.5-15.5) % Plt Count (150-450) k/uL Neutrophils # (1.3-7.7) k/uL Lymphocytes # (1.0-4.8) k/uL Lymphocytes # (Manual) (1.0-4.8) k/uL ESR (0-30) mm/Hr Sodium (137-145) mmol/L Potassium (3.5-5.1) mmol/L Chloride 113 H (98-107) mmol/L Carbon Dioxide 17 L (22-30) mmol/L BUN (7-17) mg/dL Creatinine (0.52-1.04) mg/dL Glucose 132 H (74-99) mg/dL Calcium 8.2 L (8.4-10.2) mg/dL C-Reactive Protein (0.00-0.80) mg/dL Total Protein 5.2 L (6.3-8.2) g/dL Albumin 2.8 L (3.5-5.0) g/dL Urine Appearance (Clear) Urine Protein (Negative) Urine Glucose (UA) (Negative) Urine Blood (Negative) Urine WBC (0-5) /hpf Ur Squamous Epith Cells (0-4) /hpf Urine Bacteria (None) /hpf Hyaline Casts (0-2) /lpf Urine Mucus (None) /hpf
--- NOTE | 2024-07-19 14:13 | P.PN ---
Subjective Progress Note Date: 07/19/24 Principal diagnosis: Extensive stage small cell lung cancer -Afebrile, no acute events overnight -Noted to have progressive improvement in blood pressure since admission -C. difficile PCR was negative -She continues to have loose liquid stool about once an hour with abdominal cramping and mild nausea -She has been able to eat without vomiting, but notes this causes abdominal cramping and diarrhea Objective - Vital Signs Vital signs: Vital Signs Temp 98.0 F 07/19/24 11:56 Pulse 88 07/19/24 11:56 Resp 18 07/19/24 11:56 BP 125/79 07/19/24 11:56 Pulse Ox 99 07/19/24 11:56 FiO2 Intake & Output 07/18/24 07/19/24 07/19/24 18:59 06:59 18:59 Intake Total 260 410 Balance 260 410 Weight 75.75 kg 177.4 kg Intake: IV 10 Invasive Line 2 10 Intake, IV Titration 260 Amount Sodium Chloride 0.9% 1, 260 000 ml @ 130 mls/hr IV . Q7H42M STA Rx#:[id number] Oral 400 Other: Voiding Method Toilet Toilet # Voids 6 2 # Bowel Movements 2 2 - Constitutional General appearance: Present: cooperative, no acute distress - EENT Eyes: Present: EOMI - Respiratory Details: Nonlabored breathing - Cardiovascular Details: Warm and well-perfused - Gastrointestinal General gastrointestinal: Present: hyperactive bowel sounds, soft. Absent: distended Localized gastrointestinal: tender: diffuse - Integumentary Integumentary: Absent: rash - Neurologic Neurologic: Present: CNII-XII intact. Absent: focal deficits - Labs CBC & Chem 7: 07/19/24 06:25 07/19/24 06:25 Labs: Abnormal Lab Results - Last 24 Hours (Table) 07/18/24 07/18/24 07/19/24 Range/Units 12:27 13:09 06:25 WBC 1.7 L (3.8-10.6) k/uL RBC 2.73 L (3.80-5.40) m/uL Hgb 9.4 L D (11.4-16.0) gm/dL Hct 28.1 L (34.0-46.0) % MCV 103.1 H (80.0-100.0) fL RDW 17.0 H (11.5-15.5) % Plt Count 60 L (150-450) k/uL Neutrophils # 1.2 L (1.3-7.7) k/uL Lymphocytes # 0.3 L (1.0-4.8) k/uL ESR 52 H (0-30) mm/Hr Chloride (98-107) mmol/L Carbon Dioxide (22-30) mmol/L Glucose (74-99) mg/dL Calcium (8.4-10.2) mg/dL C-Reactive Protein 14.00 H (0.00-0.80) mg/dL Total Protein (6.3-8.2) g/dL Albumin (3.5-5.0) g/dL 07/19/24 Range/Units 06:25 WBC (3.8-10.6) k/uL RBC (3.80-5.40) m/uL Hgb (11.4-16.0) gm/dL Hct (34.0-46.0) % MCV (80.0-100.0) fL RDW (11.5-15.5) % Plt Count (150-450) k/uL Neutrophils # (1.3-7.7) k/uL Lymphocytes # (1.0-4.8) k/uL ESR (0-30) mm/Hr Chloride 113 H (98-107) mmol/L Carbon Dioxide 17 L (22-30) mmol/L Glucose 132 H (74-99) mg/dL Calcium 8.2 L (8.4-10.2) mg/dL C-Reactive Protein (0.00-0.80) mg/dL Total Protein 5.2 L (6.3-8.2) g/dL Albumin 2.8 L (3.5-5.0) g/dL Assessment and Plan (1) Extensive stage primary small cell carcinoma of lung Current Visit: Yes Status: Acute Code(s): C34.90 - MALIGNANT NEOPLASM OF UNSP PART OF UNSP BRONCHUS OR LUNG SNOMED Code(s): 528421794200892 (2) Chemotherapy induced diarrhea Current Visit: Yes Status: Acute Code(s): K52.1 - TOXIC GASTROENTERITIS AND COLITIS; T45.1X5A - ADVERSE EFFECT OF ANTINEOPLASTIC AND IMMUNOSUP DRUGS, INIT SNOMED Code(s): 600843344 (3) Hypotension Current Visit: Yes Status: Resolved Priority: High Code(s): I95.9 - HYPOTENSION, UNSPECIFIED SNOMED Code(s): 16211644 Plan: N/V/D; resolved hypotension and prerenal ASHLEE: -Patient was brought to the ER for further evaluation from [facility] after noted hypotension and dizziness prior to starting treatment. Upon presentation BP was noted at 68/44. She was given fluid boluses and BP has improved with systolic BP in the 90s. Patient states over the last 3 days she has had increased n/v/d, without significant improvement with supportive medications -On admit chest x-ray showed known abnormal opacity of the medial right upper lobe with no acute processes seen. WBC 2.1, ANC 1.4, hemoglobin 11.8, platelets 83,000. Creatinine 1.29, creatinine GFR 45. Sodium 130, potassium 3.9, magnesium 1.7. LFTs and bilirubin WNL. UA showing possible UTI versus contami nation. 1 dose Rocephin has been given -Infectious workup has been negative to date including negative C. difficile PCR -She likely had hypotension secondary to chemotherapy induced diarrhea from iri notecan -She continues to have loose bowel movements once every hour -I recommended scheduling Imodium 2 mg 4 times daily for today and assessing response -We discussed increasing the frequency of Imodium if necessary in addition to potential addition of Lomotil Metastatic small cell lung cancer: -History as dictated in the HPI -Currently on treatment with carboplatin and irinotecan, completing cycle 3, day 1 on 07/04. Day 8 of treatment was delayed by 1 week for neutropenia -Day 8 of cycle 3 scheduled for 07/18/2024 was not done due to noted hypotension and GI toxicity above -Clinic f/u scheduled on 07/23, will revaluate at that time, and proceed with treatment if symptoms are improved. Treatment response scans planned s/p cycle 4 Aleyda Valdivia MD
--- NOTE | 2024-07-19 14:28 | P.PN ---
Subjective Progress Note Date: 07/19/24 Principal diagnosis: Reason for follow-up is diarrhea and leukopenia Patient is a 64-year-old female with a past medical history significant for coronary artery disease hypertension hyperlipidemia [place] reflux history of lung cancer in this patient is currently on chemotherapy patient presented to hospital with hypotension nausea vomiting and diarrhea. On today's evaluation that is 07/19/2024, Patient is afebrile patient is currently on room air and denies having any shortness of breath, the patient denies any chest pain or cough, the patient did have improvement in her nausea and vomiting still having diarrhea and crampy abdominal pain. Patient white count is 1.7, creatinine 0.70 stool for C. difficile came back negative Objective - Vital Signs Vital signs: Vital Signs Temp 98.0 F 07/19/24 11:56 Pulse 88 07/19/24 11:56 Resp 18 07/19/24 11:56 BP 125/79 07/19/24 11:56 Pulse Ox 99 07/19/24 11:56 FiO2 Intake & Output 07/18/24 07/19/24 07/19/24 18:59 06:59 18:59 Intake Total 260 410 Balance 260 410 Weight 75.75 kg 177.4 kg Intake: IV 10 Invasive Line 2 10 Intake, IV Titration 260 Amount Sodium Chloride 0.9% 1, 260 000 ml @ 130 mls/hr IV . Q7H42M STA Rx#:[id number] Oral 400 Other: Voiding Method Toilet Toilet # Voids 6 2 # Bowel Movements 2 2 - Exam GENERAL DESCRIPTION: Middle-age female lying in bed in no distress RESPIRATORY SYSTEM: Unlabored breathing , decreased breath sounds at bases HEART: S1 S2 regular rate and rhythm , ABDOMEN: Soft , no tenderness EXTREMITIES: No edema feet - Labs CBC & Chem 7: 07/19/24 06:25 07/19/24 06:25 Labs: Abnormal Lab Results - Last 24 Hours (Table) 07/18/24 07/18/24 07/18/24 Range/Units 12:27 12:27 13:09 WBC (3.8-10.6) k/uL RBC (3.80-5.40) m/uL Hgb (11.4-16.0) gm/dL Hct (34.0-46.0) % MCV (80.0-100.0) fL RDW (11.5-15.5) % Plt Count 83 L (150-450) k/uL Neutrophils # (1.3-7.7) k/uL Lymphocytes # (1.0-4.8) k/uL Lymphocytes # (Manual) 0.48 L (1.0-4.8) k/uL ESR 52 H (0-30) mm/Hr Sodium (137-145) mmol/L Potassium (3.5-5.1) mmol/L Chloride (98-107) mmol/L Carbon Dioxide (22-30) mmol/L BUN (7-17) mg/dL Creatinine (0.52-1.04) mg/dL Glucose (74-99) mg/dL Calcium (8.4-10.2) mg/dL C-Reactive Protein (0.00-0.80) mg/dL Total Protein (6.3-8.2) g/dL Albumin (3.5-5.0) g/dL Urine Appearance Turbid H (Clear) Urine Protein 2+ H (Negative) Urine Glucose (UA) 1+ H (Negative) Urine Blood Small H (Negative) Urine WBC 8 H (0-5) /hpf Ur Squamous Epith Cells 11 H (0-4) /hpf Urine Bacteria Occasional H (None) /hpf Hyaline Casts 23 H (0-2) /lpf Urine Mucus Many H (None) /hpf 07/18/24 07/18/24 07/19/24 Range/Units 13:09 13:09 06:25 WBC 1.7 L (3.8-10.6) k/uL RBC 2.73 L (3.80-5.40) m/uL Hgb 9.4 L D (11.4-16.0) gm/dL Hct 28.1 L (34.0-46.0) % MCV 103.1 H (80.0-100.0) fL RDW 17.0 H (11.5-15.5) % Plt Count 60 L (150-450) k/uL Neutrophils # 1.2 L (1.3-7.7) k/uL Lymphocytes # 0.3 L (1.0-4.8) k/uL Lymphocytes # (Manual) (1.0-4.8) k/uL ESR (0-30) mm/Hr Sodium 130 L (137-145) mmol/L Potassium 3.2 L (3.5-5.1) mmol/L Chloride (98-107) mmol/L Carbon Dioxide (22-30) mmol/L BUN 19 H (7-17) mg/dL Creatinine 1.29 H (0.52-1.04) mg/dL Glucose 127 H (74-99) mg/dL Calcium 7.0 L (8.4-10.2) mg/dL C-Reactive Protein 14.00 H (0.00-0.80) mg/dL Total Protein 5.3 L (6.3-8.2) g/dL Albumin 2.8 L (3.5-5.0) g/dL Urine Appearance (Clear) Urine Protein (Negative) Urine Glucose (UA) (Negative) Urine Blood (Negative) Urine WBC (0-5) /hpf Ur Squamous Epith Cells (0-4) /hpf Urine Bacteria (None) /hpf Hyaline Casts (0-2) /lpf Urine Mucus (None) /hpf 07/19/24 Range/Units 06:25 WBC (3.8-10.6) k/uL RBC (3.80-5.40) m/uL Hgb (11.4-16.0) gm/dL Hct (34.0-46.0) % MCV (80.0-100.0) fL RDW (11.5-15.5) % Plt Count (150-450) k/uL Neutrophils # (1.3-7.7) k/uL Lymphocytes # (1.0-4.8) k/uL Lymphocytes # (Manual) (1.0-4.8) k/uL ESR (0-30) mm/Hr Sodium (137-145) mmol/L Potassium (3.5-5.1) mmol/L Chloride 113 H (98-107) mmol/L Carbon Dioxide 17 L (22-30) mmol/L BUN (7-17) mg/dL Creatinine (0.52-1.04) mg/dL Glucose 132 H (74-99) mg/dL Calcium 8.2 L (8.4-10.2) mg/dL C-Reactive Protein (0.00-0.80) mg/dL Total Protein 5.2 L (6.3-8.2) g/dL Albumin 2.8 L (3.5-5.0) g/dL Urine Appearance (Clear) Urine Protein (Negative) Urine Glucose (UA) (Negative) Urine Blood (Negative) Urine WBC (0-5) /hpf Ur Squamous Epith Cells (0-4) /hpf Urine Bacteria (None) /hpf Hyaline Casts (0-2) /lpf Urine Mucus (None) /hpf Assessment and Plan (1) Leukopenia Current Visit: Yes Status: Acute Code(s): D72.819 - DECREASED WHITE BLOOD CELL COUNT, UNSPECIFIED SNOMED Code(s): 93054388 (2) Diarrhea Current Visit: Yes Status: Acute Code(s): R19.7 - DIARRHEA, UNSPECIFIED SNOMED Code(s): 82390661 Plan: 1patient presented to hospital with low blood pressure weakness in this patient who did have nausea vomiting and diarrhea for few days before the patient was brought to the hospital questionable related to her chemotherapy patient has been exposed to antibiotics underlying infectious etiology less likely but not entirely excluded 2-stool for C. difficile came back negative stool culture currently pending 3-patient to continue with IV fluid Questran has been added and will see response encouraged to increase her probiotic and yogurt intake Dictation was produced using [employer] dictation software. please excuse any grammatical, word or spelling errors. Time with Patient: Less than 30
[2024-07-20 08:47] VITALS: PULSE 79
[2024-07-20 09:51] LABS: ALT 14 U/L (4-34); AST 13 U/L (14-36); African American GFR (CKD) >90 (>60 ml/min/1.73 sqM); Albumin 3.1 g/dL (3.5-5.0); Alkaline Phosphatase 52 U/L (38-126); Anion Gap 9 mmol/L; Blood Urea Nitrogen 13 mg/dL (7-17); Calcium 8.4 mg/dL (8.4-10.2); Carbon Dioxide 17 mmol/L (22-30); Chloride 113 mmol/L (98-107); Glucose 106 mg/dL (74-99); Non-African American GFR(CKD) 86 (>60 ml/min/1.73 sqM); Potassium 3.6 mmol/L (3.5-5.1); Sodium 139 mmol/L (137-145); Total Bilirubin 0.6 mg/dL (0.2-1.3); Total Protein 5.5 g/dL (6.3-8.2)
[2024-07-20 11:57] VITALS: BP 145/89; RESP 18; TEMP 97.7
--- NOTE | 2024-07-20 12:46 | P.DS ---
Providers Date of admission: 07/18/24 13:59 Expected date of discharge: 07/20/24 Attending physician: Thanh Blum MD Consults: 07/18/24 13:58 Consult Physician Routine Consulting Provider: Andriy Thornton Consult Reason/Comments: oncological care Do you want consulting provider notified?: Yes 07/18/24 14:47 Consult Physician Routine Consulting Provider: Geraldo Dangelo Consult Reason/Comments: SIRS, immunosuppressed Do you want consulting provider notified?: Yes Primary care physician: Hari Navarrete [facility] Course: Discharge diagnoses; Hyponatremia Hypokalemia Bicytopenia Metastatic small cell carcinoma Coronary artery disease, prior stenting of the LAD Hypertension Hyperlipidemia Hospital course; patient is a 64-year-old lady with past medical history significant for metastatic small cell carcinoma, COPD who was sent to the ER from the transfusion center for hypotension. Patient stated that for the last couple of days she has been feeling kind of tired and lethargic. Patient has been complaining of nausea and vomiting and decreased appetite. Patient also having loose stools which she attributed to her chemotherapy. There was no complaint of fever or chills. Patient denies any lightheaded or dizziness. There is no complaint any falls at home. Patient was checking her blood pressure at home and was normal. Denies any chest pain or shortness of breath. Patient went for her chemotherapy this morning and was found to have low blood pressure and was sent to the ER. Initial lab work done in the ER showed WBC 2.1, hemoglobin 11.8, platelet count 83, sodium 132, potassium 3.2, BUN 19, creatinine 1.29, Influenza A not detected Influenza B not detected RSV not detected COVID-19 not detected EKG done in the ER showed heart rate of 81 , no ST segment elevation or depression seen, no T-wave inversions seen. Chest x-ray done in the ER showed no acute process Patient admitted to internal medicine service 07/19. Patient seen and examined. States she feels much better. Still having diarrhea. Denies any nausea or vomiting. 07/20. Patient seen and examined. Diarrhea has resolved. All infectious workup was negative. Being discharged on Questran and Imodium. Outpatient follow-up with PCP PHYSICAL EXAMINATION: GENERAL: The patient is alert and oriented x3, ill looking HEENT: Pupils are round and equally reacting to light. EOMI. No scleral icterus. No conjunctival pallor. Normocephalic, atraumatic. No pharyngeal erythema. No thyromegaly. CARDIOVASCULAR: S1 and S2 present. No murmurs, rubs, or gallops. PULMONARY: Chest is clear to auscultation, no wheezing or crackles. ABDOMEN: Soft, nontender, nondistended, normoactive bowel sounds. No palpable organomegaly. MUSCULOSKELETAL: No joint swelling or deformity. EXTREMITIES: No cyanosis, clubbing, or pedal edema. NEUROLOGICAL: Gross neurological examination did not reveal any focal deficits. SKIN: No rashes. Dictation was produced using [employer] dictation software. please excuse any grammatical, word or spelling errors. Patient Condition at Discharge: Good Plan - Discharge Summary Discharge Rx Participant: No New Discharge Prescriptions: New Loperamide [Imodium] 2 mg PO QID 120 Days #30 cap Cholestyramine (with Sugar) [Questran Packet] 4 gm PO BID@1000,1800 15 Days #30 packet Continue Aspirin 81 mg PO DAILY Carvedilol 25 mg PO BID Magnesium Oxide [Mag-Ox] 400 mg PO DAILY lisinopriL [Zestril] 5 mg PO DAILY Memantine [Namenda] 10 mg PO BID Hydrocortisone 5 mg PO HS Ondansetron [Zofran] 4 mg PO Q4HR PRN #45 tab PRN Reason: Nausea Furosemide [Lasix] 40 mg PO DAILY Potassium Chloride ER [K-Dur 20] 20 meq PO DAILY Hydrocortisone 10 mg PO DAILY Atorvastatin [Lipitor] 40 mg PO DAILY Albuterol Nebulized [Ventolin Nebulized] 2.5 mg INHALATION RT-QID PRN PRN Reason: Shortness Of Breath Discharge Medication List Aspirin 81 mg PO DAILY 07/29/14 [History] Carvedilol 25 mg PO BID 07/29/14 [History] Ondansetron [Zofran] 4 mg PO Q4HR PRN #45 tab 07/30/23 [Rx] Furosemide [Lasix] 40 mg PO DAILY 08/14/23 [History] Hydrocortisone 10 mg PO DAILY 07/04/24 [History] Magnesium Oxide [Mag-Ox] 400 mg PO DAILY 07/04/24 [History] Potassium Chloride ER [K-Dur 20] 20 meq PO DAILY 07/04/24 [History] Albuterol Nebulized [Ventolin Nebulized] 2.5 mg INHALATION RT-QID PRN 07/18/24 [History] Atorvastatin [Lipitor] 40 mg PO DAILY 07/18/24 [History] Hydrocortisone 5 mg PO HS 07/18/24 [History] Memantine [Namenda] 10 mg PO BID 07/18/24 [History] lisinopriL [Zestril] 5 mg PO DAILY 07/18/24 [History] Cholestyramine (with Sugar) [Questran Packet] 4 gm PO BID@1000,1800 15 Days #30 packet 07/20/24 [Rx] Loperamide [Imodium] 2 mg PO QID 120 Days #30 cap 07/20/24 [Rx] Follow up Appointment(s)/Referral(s): Hari Navarrete DO [Primary Care Provider] - 1-2 days
--- NOTE | 2024-07-20 13:32 | P.PN ---
Subjective Progress Note Date: 07/20/24 Principal diagnosis: Reason for follow-up is diarrhea and leukopenia Patient is a 64-year-old female with a past medical history significant for coronary artery disease hypertension hyperlipidemia [place] reflux history of lung cancer in this patient is currently on chemotherapy patient presented to hospital with hypotension nausea vomiting and diarrhea. On today's evaluation that is 07/20/2024, patient has been afebrile, patient is breathing comfortably and is currently on room air, patient denies having any significant cough no chest pain, patient denies nausea vomiting and did have resolution of her diarrhea feeling better. Patient did have a creatinine 0.75 potassium 3.6 stool culture pending Objective - Vital Signs Vital signs: Vital Signs Temp 97.7 F 07/20/24 11:56 Pulse 79 07/20/24 11:56 Resp 18 07/20/24 11:56 BP 145/89 07/20/24 11:56 Pulse Ox 99 07/20/24 11:56 FiO2 Intake & Output 07/19/24 07/20/24 07/20/24 19:59 06:59 18:59 Intake Total 278 Balance 278 Weight Intake: IV 10 Invasive Line 2 10 Oral 268 Other: Voiding Method Toilet # Voids 2 # Bowel Movements 1 - Exam GENERAL DESCRIPTION: Middle-age female lying in bed in no distress RESPIRATORY SYSTEM: Unlabored breathing , decreased breath sounds at bases HEART: S1 S2 regular rate and rhythm , ABDOMEN: Soft , no tenderness EXTREMITIES: No edema feet - Labs CBC & Chem 7: 07/19/24 06:25 07/20/24 08:34 Labs: Abnormal Lab Results - Last 24 Hours (Table) 07/20/24 Range/Units 08:34 Chloride 113 H (98-107) mmol/L Carbon Dioxide 17 L (22-30) mmol/L Glucose 106 H (74-99) mg/dL AST 13 L (14-36) U/L Total Protein 5.5 L (6.3-8.2) g/dL Albumin 3.1 L (3.5-5.0) g/dL Microbiology - Last 24 Hours (Table) 07/18/24 15:36 Blood Culture - Preliminary Blood Assessment and Plan (1) Leukopenia Current Visit: Yes Status: Acute Code(s): D72.819 - DECREASED WHITE BLOOD CELL COUNT, UNSPECIFIED SNOMED Code(s): 15731153 (2) Diarrhea Current Visit: Yes Status: Acute Code(s): R19.7 - DIARRHEA, UNSPECIFIED SNOMED Code(s): 02765316 Plan: 1patient presented to hospital with low blood pressure weakness in this patient who did have nausea vomiting and diarrhea for few days before the patient was brought to the hospital questionable related to her chemotherapy patient has been exposed to antibiotics underlying infectious etiology less likely but not entirely excluded 2-stool for C. difficile came back negative stool culture currently pending 3-patient seen to have further clinical improvement with the Questran to continue on discharge no need for antibiotic as clinical suspicion is low for infectious etiology, question concern answered Dictation was produced using [employer] dictation software. please excuse any grammatical, word or spelling errors. Time with Patient: Less than 30
--- NOTE | 2024-07-20 14:00 | P.PN ---
Subjective Progress Note Date: 07/20/24 Principal diagnosis: Extensive stage small cell lung cancer -Afebrile, no acute events overnight -Noted not having bowel movement from yesterday after dinner until late this morning after breakfast. She notes her bowel movements are still loose, but not as watery -She continues to be able to eat and drink without any limitations and feels improved Objective - Vital Signs Vital signs: Vital Signs Temp 97.7 F 07/20/24 11:56 Pulse 79 07/20/24 11:56 Resp 18 07/20/24 11:56 BP 145/89 07/20/24 11:56 Pulse Ox 99 07/20/24 11:56 FiO2 Intake & Output 07/19/24 07/20/24 07/20/24 19:59 06:59 18:59 Intake Total 428 Balance 428 Weight Intake: IV 10 Invasive Line 2 10 Oral 418 Other: Voiding Method Toilet # Voids 2 # Bowel Movements 1 - Constitutional General appearance: Present: cooperative, no acute distress - EENT Eyes: Present: EOMI - Respiratory Details: Nonlabored breathing - Cardiovascular Details: Warm and well-perfused - Gastrointestinal General gastrointestinal: Present: normal bowel sounds, soft. Absent: tenderness - Integumentary Integumentary: Absent: rash - Neurologic Neurologic: Present: CNII-XII intact. Absent: focal deficits - Labs CBC & Chem 7: 07/19/24 06:25 07/20/24 08:34 Labs: Abnormal Lab Results - Last 24 Hours (Table) 07/20/24 Range/Units 08:34 Chloride 113 H (98-107) mmol/L Carbon Dioxide 17 L (22-30) mmol/L Glucose 106 H (74-99) mg/dL AST 13 L (14-36) U/L Total Protein 5.5 L (6.3-8.2) g/dL Albumin 3.1 L (3.5-5.0) g/dL Microbiology - Last 24 Hours (Table) 07/18/24 15:36 Blood Culture - Preliminary Blood Assessment and Plan (1) Extensive stage primary small cell carcinoma of lung Current Visit: Yes Status: Acute Code(s): C34.90 - MALIGNANT NEOPLASM OF UNSP PART OF UNSP BRONCHUS OR LUNG SNOMED Code(s): 526735900794636 (2) Chemotherapy induced diarrhea Current Visit: Yes Status: Acute Code(s): K52.1 - TOXIC GASTROENTERITIS AND COLITIS; T45.1X5A - ADVERSE EFFECT OF ANTINEOPLASTIC AND IMMUNOSUP DRUGS, INIT SNOMED Code(s): 687658372 (3) Hypotension Current Visit: Yes Status: Resolved Priority: High Code(s): I95.9 - HYPOTENSION, UNSPECIFIED SNOMED Code(s): 37007908 Plan: N/V/D; resolved hypotension and prerenal ASHLEE: -Patient was brought to the ER for further evaluation from [facility] after noted hypotension and dizziness prior to starting treatment. Upon presentation BP was noted at 68/44. She was given fluid boluses and BP has improved with systolic BP in the 90s. Patient states over the last 3 days she has had increased n/v/d, without significant improvement with supportive medications -On admit chest x-ray showed known abnormal opacity of the medial right upper lobe with no acute processes seen. WBC 2.1, ANC 1.4, hemoglobin 11.8, platelets 83,000. Creatinine 1.29, creatinine GFR 45. Sodium 130, potassium 3.9, magnesium 1.7. LFTs and bilirubin WNL. UA showing possible UTI versus contamination. 1 dose Rocephin has been given -Infectious workup has been negative to date including negative C. difficile PCR -She likely had hypotension secondary to chemotherapy induced diarrhea from irinotecan -After scheduling Imodium 2 mg 4 times daily, she has had significant reduction in diarrhea and is able to tolerate solids and liquids without nausea or vomiti ng -From an oncology perspective, she can be discharged -I did advise her to have Imodium on hand and to take it as soon as she had an episode of diarrhea -I did recommend holding Lasix for an additional 2 days as she could still be mildly dehydrated and has no signs/symptoms of decompensated heart failure Metastatic small cell lung cancer: -History as dictated in the HPI -Currently on treatment with carboplatin and irinotecan, completing cycle 3, day 1 on 07/04. Day 8 of treatment was delayed by 1 week for neutropenia -Day 8 of cycle 3 scheduled for 07/18/2024 was not done due to noted hypotension and GI toxicity above -Clinic f/u scheduled on 07/23 at 4:[address] Thornton, will revaluate at that time, and proceed with treatment if symptoms are improved. Treatment response scans planned s/p cycle 4 Aleyda Valdivia MD
== END 2024-07-20 14:22 | disposition home or self-care (01) | DRG 312 ==
LOC: EC 11:56 → 3SCARD 13:59
PROVIDERS: ADMIT Internal Medicine; ATTEND Internal Medicine
DX: I95.2 Hypotension due to drugs (principal); C79.31 Secondary malignant neoplasm of brain; D84.821 Immunodeficiency due to drugs; K52.1 Toxic gastroenteritis and colitis; C34.91 Malignant neoplasm of unspecified part of right bronchus or lung; E87.1 Hypo-osmolality and hyponatremia; N17.9 Acute kidney failure, unspecified; I11.0 Hypertensive heart disease with heart failure; I50.9 Heart failure, unspecified; J44.9 Chronic obstructive pulmonary disease, unspecified; K76.89 Other specified diseases of liver; E86.0 Dehydration; T45.1X5A Adverse effect of antineoplastic and immunosuppressive drugs, initial encounter; I25.10 Atherosclerotic heart disease of native coronary artery without angina pectoris; N28.1 Cyst of kidney, acquired; E78.5 Hyperlipidemia, unspecified; E87.6 Hypokalemia; D75.89 Other specified diseases of blood and blood-forming organs; I25.2 Old myocardial infarction; Z79.899 Other long term (current) drug therapy; Z79.51 Long term (current) use of inhaled steroids; Z79.82 Long term (current) use of aspirin; Z87.891 Personal history of nicotine dependence; Z95.5 Presence of coronary angioplasty implant and graft; Z11.52 Encounter for screening for COVID-19
CPT/HCPCS: 36415; 71046; 80053; 81001; 83605; 83735; 85025; 85652; 86140; 87040; 87086; 87324; 87636; 93005; 96361; 96365; 96366; 96375; 99291

== ENCOUNTER 2024-07-23 17:15 | Inpatient (IN) | payer BC, OTHER ==
[2024-07-23] MEDS: SODIUM CHLORIDE 0.9% 1,000 ML IV STA (17:42)
[2024-07-23 17:48] LABS: Anisocytosis Slight; Basophils % (A) 0 %; Eosinophils # (A) 0.1 k/uL (0-0.7); Eosinophils % (A) 3 %; Lymphocytes # (A) 0.4 k/uL (1.0-4.8); Lymphocytes % (A) 29 %; MCH 34.8 pg (25.0-35.0); MCHC 34.3 g/dL (31.0-37.0); MCV 101.4 fL (80.0-100.0); Macrocytosis Slight; Mean Platelet Volume 8.2; Monocytes # (A) 0.1 k/uL (0-1.0); Monocytes % (A) 7 %; Neutrophils # (A) 0.9 k/uL (1.3-7.7); Neutrophils % (A) 58 %; RBC 3.16 m/uL (3.80-5.40); RDW 16.5 % (11.5-15.5); WBC 1.5 k/uL (3.8-10.6)
[2024-07-23 17:57] LABS: INR 1.2 (<1.2); Partial Thromboplastin Time 24.1 sec (22.0-30.0); Prothrombin Time 12.9 sec (10.0-12.5)
[2024-07-23 18:00] LABS: ALT 12 U/L (4-34); AST 14 U/L (14-36); African American GFR (CKD) 50 (>60 ml/min/1.73 sqM); Albumin 3.6 g/dL (3.5-5.0); Alkaline Phosphatase 69 U/L (38-126); Anion Gap 10 mmol/L; Blood Urea Nitrogen 10 mg/dL (7-17); Calcium 8.5 mg/dL (8.4-10.2); Carbon Dioxide 23 mmol/L (22-30); Chloride 99 mmol/L (98-107); Glucose 164 mg/dL (74-99); Magnesium 2.1 mg/dL (1.6-2.3); Non-African American GFR(CKD) 44 (>60 ml/min/1.73 sqM); Potassium 4.1 mmol/L (3.5-5.1); Sodium 132 mmol/L (137-145); Total Protein 6.3 g/dL (6.3-8.2)
[2024-07-23 18:07] LABS: Platelet Count 61 k/uL (150-450)
[2024-07-23] MEDS: DIPHENOX-ATROP 2.5-0.025 MG 1 EACH TAB PO STA (18:12)
[2024-07-23] MEDS: HYDROCORTISONE SUCCINATE 100 MG/2 ML VIAL IV STA (18:13)
[2024-07-23] MEDS: ONDANSETRON 4 MG/2 ML VIAL IVP STA (18:14)
[2024-07-23] MEDS: CEFEPIME 2 GM in SODIUM CHLORIDE 0.9% 100 ML IVPB STA (18:23)
--- NOTE | 2024-07-23 18:24 | XR ---
EXAMINATION TYPE: XR chest 2V DATE OF EXAM: 07/23/2024 5:54 PM COMPARISON: Chest radiographs from 07/18/2024 CLINICAL INDICATION: Female, 64 years old with history of Weakness; [facility] TECHNIQUE: XR chest 2V Frontal and lateral views of the chest. FINDINGS: Lungs/Pleura: There is no evidence of pleural effusion, focal consolidation, or pneumothorax. Pulmonary vascularity: Unremarkable. Heart/mediastinum: Cardiomediastinal silhouette is unremarkable. Musculoskeletal: No acute osseous pathology. IMPRESSION: No acute cardiopulmonary disease/process. [facility] Sridevi Angelo, , 07/23/2024 6:22 PM
--- NOTE | 2024-07-23 18:33 | ED ---
General Adult HPI - General Chief complaint: Nausea/Vomiting/Diarrhea Stated complaint: NVD Time Seen by Provider: 07/23/24 17:20 Source: patient, family, RN notes reviewed, old records reviewed Mode of arrival: wheelchair Limitations: no limitations - History of Present Illness Initial comments: Is a 64-year-old female who has small cell cancer and had her third dose of chemo on Sunday. Since then she has had intractable nausea vomiting and diarrhea and she also has a absolute neutrophil count of 100,000. Dr. Farias wanted the patient to be admitted hydrated and put on cefepime Neupogen and continue hydration. Patient denies any abdominal pain. Patient denies any chest pain difficult breathing or shortness of breath. Patient does states she feels weak and very tired. - Related Data Home Medications Medication Instructions Recorded Confirmed Aspirin 81 mg PO DAILY 07/29/14 07/18/24 Carvedilol 25 mg PO BID 07/29/14 07/18/24 Furosemide [Lasix] 40 mg PO DAILY 08/14/23 07/18/24 Hydrocortisone 10 mg PO DAILY 07/04/24 07/18/24 Magnesium Oxide [Mag-Ox] 400 mg PO DAILY 07/04/24 07/18/24 Potassium Chloride ER [K-Dur 20] 20 meq PO DAILY 07/04/24 07/18/24 Albuterol Nebulized [Ventolin 2.5 mg INHALATION RT-QID PRN 07/18/24 07/18/24 Nebulized] Atorvastatin [Lipitor] 40 mg PO DAILY 07/18/24 07/18/24 Hydrocortisone 5 mg PO HS 07/18/24 07/18/24 Memantine [Namenda] 10 mg PO BID 07/18/24 07/18/24 lisinopriL [Zestril] 5 mg PO DAILY 07/18/24 07/18/24 Previous Rx's Medication Instructions Recorded Ondansetron [Zofran] 4 mg PO Q4HR PRN #45 tab 07/30/23 Cholestyramine (with Sugar) 4 gm PO BID@1000,1800 15 Days #30 07/20/24 [Questran Packet] packet Loperamide [Imodium] 2 mg PO QID 120 Days #30 cap 07/20/24 Allergies Allergy/AdvReac Type Severity Reaction Status Date / Time No Known Allergies Allergy Verified 07/23/24 17:17 Review of Systems ROS Statement: Those systems with pertinent positive or pertinent negative responses have been documented in the HPI. ROS Other: All systems not noted in ROS Statement are negative. Past Medical History Past Medical History: Coronary Artery Disease (CAD), Cancer, Heart Failure, GERD/Reflux, Hyperlipidemia, Hypertension, Myocardial Infarction (ND) Additional Past Medical History / Comment(s): VOCAL CORD POLYP, lung cancer Last Myocardial Infarction Date:: 2011 History of Any Multi-Drug Resistant Organisms: None Reported Past Surgical History: Heart Catheterization With Stent, Tonsillectomy, Tubal Ligation Additional Past Surgical History / Comment(s): JHON R.K. SX, VOCAL CHORD POLYPS REMOVED x2 Past Anesthesia/Blood Transfusion Reactions: No Reported Reaction Date of Last Stent Placement:: UNK Past Psychological History: No Psychological Hx Reported Smoking Status: Former smoker Past Alcohol Use History: None Reported Past Drug Use History: None Reported - Past Family History Sister(s) Family Medical History: Cancer General Exam - General Exam Comments Initial Comments: GENERAL: Patient is well-developed and well-nourished. Patient is nontoxic and well- hydrated and is in mild distress. ENT: Neck is soft and supple. No significant lymphadenopathy is noted. Oropharynx is clear. Dry mucous membranes. Neck has full range of motion without eliciting any pain. EYES: The sclera were anicteric and conjunctiva were pink and moist. Extraocular movements were intact and pupils were equal round and reactive to light. Eyelids were unremarkable. PULMONARY: Unlabored respirations. Good breath sounds bilaterally. No audible rales rh onchi or wheezing was noted. CARDIOVASCULAR: There is a regular rate and rhythm without any murmurs gallops or rubs. ABDOMEN: Soft and nontender with normal bowel sounds. SKIN: Skin is clear with no lesions or rashes and otherwise unremarkable. NEUROLOGIC: Patient is alert and oriented x3. Cranial nerves II through XII are grossly intact. Motor and sensory are also intact. Normal speech, volume and content. Symmetrical smile. MUSCULOSKELETAL: Normal extremities with adequate strength and full range of motion. No lower extremity swelling or edema. No calf tenderness. LYMPHATICS: No significant lymphadenopathy is noted PSYCHIATRIC: Normal psychiatric evaluation. Limitations: no limitations Course Vital Signs 07/23/24 07/23/24 07/23/24 17:17 17:29 17:35 Temperature 97.8 F Pulse Rate 113 H 104 H 102 H Respiratory 18 18 18 Rate Blood Pressure 69/52 80/55 77/46 O2 Sat by Pulse 98 97 97 Oximetry 07/23/24 07/23/24 18:28 20:08 Temperature Pulse Rate 95 86 Respiratory 18 18 Rate Blood Pressure 103/65 111/60 O2 Sat by Pulse 97 Oximetry Medical Decision Making - Medical Decision Making EKG is interpreted by myself. EKG shows a sinus rhythm at 90 bpm FL was under 40 QRS is 162 QT interval 388 QTc is 444. Patient's EKG shows a left bundle branch block. Was pt. sent in by a medical professional or institution (, PA, ELEMENTARY SCHOOL REGISTRAR, urgent care, hospital, or shelter...) When possible be specific @ -Dr. Beverly sent the patient into the emergency department from [facility] Did you speak to anyone other than the patient for history (EMS, parent, family, police, friend...)? What history was obtained from this source @ -Speak with Dr. Clark prior to the patient's arrival Did you review nursing and triage notes (agree or disagree)? Why? @ -I reviewed and agree with nursing and triage notes Were old charts reviewed (outside hosp., previous admission, EMS record, old EKG, old radiological studies, urgent care reports/EKG's, shelter records)? Report findings @ -No old charts were reviewed Differential Diagnosis? @ -Adverse reaction to chemotherapy, gastroenteritis, viral syndrome, this is not an all-inclusive list EKG interpreted by me (3pts min.). @ -As above X-rays interpreted by me (1pt min.). @ -Abdominal x-ray showed no acute abnormality CT interpreted by me (1pt min.). @ -None done U/S interpreted by me (1pt. min.). @ -None done What testing was considered but not performed or refused? (CT, X-rays, U/S, labs)? Why? @ -None What meds were considered but not given or refused? Why? @ -None Did you discuss the management of the patient with other professionals (professionals i.e. , SWETHA, ELEMENT[employer] SCHO[employer] REGISTRAR, lab, RT, psych nurse, social scientist, hand splitter, teacher, juvenile correctional officer, machine adjuster leader case trim)? Give summary @ [facility] the patient wrote admitting orders Was smoking cessation discussed for >3mins.? @ -No Was critical care preformed (if so, how long)? @ -No Were there social determinants of health that impacted care today? How? (Homelessness, low income, unemployed, alcoholism, drug addiction, transportation, low edu. Level, literacy, decrease access to med. care, [facility], rehab)? @ -No Was there de-escalation of care discussed even if they declined (Discuss DNR or withdrawal of care, Hospice)? DNR status @ -No What co-morbidities impacted this encounter? (DM, HTN, Smoking, COPD, CAD, Cancer, CVA, ARF, Chemo, Hep., AIDS, mental health diagnosis, sleep apnea, morbid obesity)? @ -None Was patient admitted / discharged? Hospital course, mention meds given and route, prescriptions, significant lab abnormalities, going to OR and other pertinent info. @ -Patient's blood pressure was systolic in the 70s when she arrived the patient received 2 L of fluid and was feeling considerably better. Patient was also given Zofran and Lomotil to stop the vomiting and diarrhea and she stated since she has been here she has had no further diarrhea or vomiting. I spoke with [facility] hospitalist and they agreed admit the patient. Per Dr. Thornton instructions patient did receive cefepime and Neupogen while in the emergency department. Undiagnosed new problem with uncertain prognosis? @ -No Drug Therapy requiring intensive monitoring for toxicity (Heparin, Nitro, Insulin, Cardizem)? @ -No Were any procedures done? @ -No Diagnosis/symptom? @ -Dehydration Acute, or Chronic, or Acute on Chronic? @ -Acute Uncomplicated (without systemic symptoms) or Complicated (systemic symptoms)? @ -Complicated Side effects of treatment? @ -No Exacerbation, Progression, or Severe Exacerbation? @ -No Poses a threat to life or bodily function? How? (Chest pain, USA, ND, pneumonia, PE, COPD, DKA, ARF, appy, cholecystitis, CVA, Diverticulitis, Homicidal, Suicidal, threat to staff... and all critical care pts) @ -No Diagnosis/symptom? @ -Adverse reaction to chemo Acute, or Chronic, or Acute on Chronic? @ -Acute Uncomplicated (without systemic symptoms) or Complicated (systemic symptoms)? @ -Complicated Side effects of treatment? @ -None Exacerbation, Progression, or Severe Exacerbation] @ -No Poses a threat to life or bodily function? @ -No - Lab Data Result diagrams: 07/23/24 17:41 07/23/24 17:41 Lab Results 07/23/24 07/23/24 07/23/24 Range/Units 17:41 17:41 17:41 WBC 1.5 L (3.8-10.6) k/uL RBC 3.16 L (3.80-5.40) m/uL Hgb 11.0 L (11.4-16.0) gm/dL Hct 32.0 L (34.0-46.0) % MCV 101.4 H (80.0-100.0) fL MCH 34.8 (25.0-35.0) pg MCHC 34.3 (31.0-37.0) g/dL RDW 16.5 H (11.5-15.5) % Plt Count 61 L (150-450) k/uL MPV 8.2 Neutrophils % 58 % Lymphocytes % 29 % Monocytes % 7 % Eosinophils % 3 % Basophils % 0 % Neutrophils # 0.9 L (1.3-7.7) k/uL Lymphocytes # 0.4 L (1.0-4.8) k/uL Monocytes # 0.1 (0-1.0) k/uL Eosinophils # 0.1 (0-0.7) k/uL Basophils # 0.0 (0-0.2) k/uL Manual Slide Review Performed Anisocytosis Slight Macrocytosis Slight PT 12.9 H (10.0-12.5) sec INR 1.2 H (<1.2) APTT 24.1 (22.0-30.0) sec Sodium 132 L (137-145) mmol/L Potassium 4.1 (3.5-5.1) mmol/L Chloride 99 (98-107) mmol/L Carbon Dioxide 23 (22-30) mmol/L Anion Gap 10 mmol/L BUN 10 (7-17) mg/dL Creatinine 1.31 H (0.52-1.04) mg/dL Est GFR (CKD-EPI)AfAm 50 (>60 ml/min/1.73 sqM) Est GFR (CKD-EPI)NonAf 44 (>60 ml/min/1.73 sqM) Glucose 164 H (74-99) mg/dL Plasma Lactic Acid Chencho (0.7-2.0) mmol/L Calcium 8.5 (8.4-10.2) mg/dL Magnesium 2.1 (1.6-2.3) mg/dL Total Bilirubin 1.0 (0.2-1.3) mg/dL AST 14 (14-36) U/L ALT 12 (4-34) U/L Alkaline Phosphatase 69 (38-126) U/L Troponin I (0.000-0.034) ng/mL Total Protein 6.3 (6.3-8.2) g/dL Albumin 3.6 (3.5-5.0) g/dL 07/23/24 07/23/24 Range/Units 17:41 17:41 WBC (3.8-10.6) k/uL RBC (3.80-5.40) m/uL Hgb (11.4-16.0) gm/dL Hct (34.0-46.0) % MCV (80.0-100.0) fL MCH (25.0-35.0) pg MCHC (31.0-37.0) g/dL RDW (11.5-15.5) % Plt Count (150-450) k/uL MPV Neutrophils % % Lymphocytes % % Monocytes % % Eosinophils % % Basophils % % Neutrophils # (1.3-7.7) k/uL Lymphocytes # (1.0-4.8) k/uL Monocytes # (0-1.0) k/uL Eosinophils # (0-0.7) k/uL Basophils # (0-0.2) k/uL Manual Slide Review Anisocytosis Macrocytosis PT (10.0-12.5) sec INR (<1.2) APTT (22.0-30.0) sec Sodium (137-145) mmol/L Potassium (3.5-5.1) mmol/L Chloride (98-107) mmol/L Carbon Dioxide (22-30) mmol/L Anion Gap mmol/L BUN (7-17) mg/dL Creatinine (0.52-1.04) mg/dL Est GFR (CKD-EPI)AfAm (>60 ml/min/1.73 sqM) Est GFR (CKD-EPI)NonAf (>60 ml/min/1.73 sqM) Glucose (74-99) mg/dL Plasma Lactic Acid Chencho 1.2 (0.7-2.0) mmol/L Calcium (8.4-10.2) mg/dL Magnesium (1.6-2.3) mg/dL Total Bilirubin (0.2-1.3) mg/dL AST (14-36) U/L ALT (4-34) U/L Alkaline Phosphatase (38-126) U/L Troponin I 0.019 (0.000-0.034) ng/mL Total Protein (6.3-8.2) g/dL Albumin (3.5-5.0) g/dL Disposition Clinical Impression: Dehydration, Adverse effect of chemotherapy, Hypotension Disposition: ADMITTED IP TO THIS HOSP Referrals: Hari Navarrete DO [Primary Care Provider] - 1-2 days Time of Disposition: 20:32
[2024-07-23] MEDS: FILGRASTIM-SNDZ 480 MCG/0.8 ML SYRINGE SQ SCH (19:58)
[2024-07-23] MEDS: SODIUM CHLORIDE 0.9% 1,000 ML IV ONE (21:23)
[2024-07-23 21:48] LABS: Appearance,Urine Cloudy (Clear); Bacteria,Urine Rare /hpf; Bilirubin,Urine Negative (Negative); Blood,Urine Small (Negative); Cellular Casts,Urine 24 /lpf (0); Color,Urine Yellow; Glucose,Urine (UA) Trace (Negative); Granular Casts,Urine 8 /lpf (0); Hyaline Casts,Urine 35 /lpf (0-2); Ketones,Urine 1+ (Negative); Leukocyte Esterase,Urine Negative (Negative); Mucus,Urine Many /hpf; Nitrite,Urine Negative (Negative); PH, Urine 5.5 (5.0-8.0); Protein,Urine 2+ (Negative); RBC,Urine 2 /hpf (0-5); Specific Gravity,Urine 1.019 (1.001-1.035); Squamous Epithelial Cell,Urine 14 /hpf (0-4); Urobilinogen,Urine <2.0 mg/dL (<2.0); WBC,Urine 9 /hpf (0-5)
--- NOTE | 2024-07-23 22:03 | XR ---
EXAMINATION TYPE: XR abdomen complete w decub DATE OF EXAM: 07/23/2024 9:56 PM COMPARISON: CT abdomen pelvis 06/06/2024. CLINICAL INDICATION: Female, 64 years old with history of Abdominal pain, TECHNIQUE: Supine, upright, and left side down lateral decubitus views of the abdomen are obtained. FINDINGS: There is no evidence for pneumoperitoneum. The bowel gas pattern is unremarkable as there is air throughout nondilated small and large bowel. No sizeable air fluid levels. No mass effects are seen. No unusual calcifications. Severe degeneration changes of the hips with joint space narrowing osteophyte formation. IMPRESSION: Gaseous dilation of loops of bowel which is nonspecific finding, correlate for ileus versus bowel obs truction. [facility], , 07/23/2024 10:01 PM
[2024-07-23] MEDS: CEFEPIME 2 GM in SODIUM CHLORIDE 0.9% 100 ML IVPB SCH (23:17)
[2024-07-24] MEDS: ONDANSETRON 4 MG/2 ML VIAL IVP PRN (09:22)
[2024-07-24] MEDS ORDERED: ALBUTEROL NEBULIZED 2.5 MG/3 ML INHALATION PRN (09:43)
[2024-07-24] MEDS ORDERED: PROCHLORPERAZINE INJ 10 MG/2 ML VIAL IVP PRN (09:47)
[2024-07-24 10:03] LABS: ALT 11 U/L (4-34); AST 11 U/L (14-36); African American GFR (CKD) 80 (>60 ml/min/1.73 sqM); Albumin/Globulin Ratio 1.2; Alkaline Phosphatase 68 U/L (38-126); Anion Gap 7 mmol/L; Blood Urea Nitrogen 15 mg/dL (7-17); Calcium 8.1 mg/dL (8.4-10.2); Carbon Dioxide 23 mmol/L (22-30); Chloride 104 mmol/L (98-107); Globulin 2.6 g/dL; Glucose 110 mg/dL (74-99); Non-African American GFR(CKD) 69 (>60 ml/min/1.73 sqM); Potassium 3.4 mmol/L (3.5-5.1); Sodium 134 mmol/L (137-145); Total Bilirubin 0.8 mg/dL (0.2-1.3); Total Protein 5.6 g/dL (6.3-8.2)
[2024-07-24 10:18] LABS: Anisocytosis Slight; HCT 28.4 % (34.0-46.0); HGB 9.6 gm/dL (11.4-16.0); MCH 34.5 pg (25.0-35.0); MCHC 33.7 g/dL (31.0-37.0); MCV 102.5 fL (80.0-100.0); Macrocytosis Moderate; Mean Platelet Volume 8.3; RBC 2.77 m/uL (3.80-5.40)
[2024-07-24 10:20] LABS: Platelet Count 58 k/uL (150-450)
[2024-07-24 10:21] LABS: WBC 0.9 k/uL (3.8-10.6)
[2024-07-24] MEDS: IOPAMIDOL CONTRAST (ORAL USE) VIAL PO PRN (11:31)
[2024-07-24] MEDS: HYDROCORTISONE 10 MG TAB PO SCH ×2 (11:32→21:47)
[2024-07-24] MEDS: SODIUM CHLORIDE 0.9% 1,000 ML IV SCH (11:41)
--- NOTE | 2024-07-24 13:33 | CT ---
EXAMINATION TYPE: CT abdomen pelvis w con CT DLP: 1031.7 mGycm, Automated exposure control for dose reduction was used. DATE OF EXAM: 07/24/2024 1:20 PM COMPARISON: CT chest abdomen and pelvis 06/06/2024, abdominal radiograph 07/23/2024 CLINICAL INDICATION:Female, 64 years old with history of n/v, abd xray showing possible ileus vs SBO; N/V, ABNORMAL XRAY TECHNIQUE: Standard CT of the abdomen and pelvis following the administration of 100 cc of Isovue 3 00 IV contrast material and oral contrast. Coronal and sagittal reformats were performed. FINDINGS: LOWER CHEST: Unremarkable ABDOMEN LIVER: There are 2 similar ill-defined hypodense masses identified within the liver with one within t he posterior right hepatic lobe measuring up to 2.7 cm and the other within the inferior right hepati c lobe measuring up to 2.1 cm. GALLBLADDER AND BILE DUCTS: Prominent gallbladder without surrounding inflammatory changes identified . No biliary duct dilatation. PANCREAS: Unremarkable. SPLEEN: Unremarkable. ADRENAL GLANDS: Right adrenal gland appears unremarkable. Increased size of left adrenal gland indete rminate nodule measuring up to 1.3 cm., Previously 0.7 cm. KIDNEYS AND URETERS: No evidence of hydronephrosis or renal calculus. The kidneys enhance symmetrical ly. Left renal 1.3 cm cyst. PELVIS BLADDER: Incompletely distended but grossly unremarkable. REPRODUCTIVE: Unremarkable. ABDOMEN & PELVIS STOMACH AND BOWEL: Stomach and duodenum are unremarkable. Enteric contrast reaches the mid small prema l. There is mild small bowel dilatation without focal transition point. Few air-fluid levels identifi ed. Circumferential wall thickening identified of the distal ileum measuring up to 7 mm in diameter. The appendix is within normal limits. No evidence of bowel obstruction. PERITONEUM: No evidence of pneumoperitoneum or free fluid. VASCULATURE: Moderate atherosclerotic calcifications are present throughout the abdominal aorta and i ts branches. No evidence of aortic aneurysm. MUSCULOSKELETAL: No acute osseous abnormalities. Moderate left hip osteoarthritic change. No aggressi ve osseous lesions. LYMPH NODES: No evidence for lymphadenopathy. SOFT TISSUE/ABDOMINAL WALL: Tiny fat filled umbilical hernia. IMPRESSION: 1. Mild small bowel dilatation without focal transition point to suggest obstruction. There is wall thickening involving the distal terminal ileum likely representing an infectious/inflammatory ileitis and reactive ileus. 2. Demonstration of 2 ill-defined hepatic lesions likely representing metastasis. Increasing size of left adrenal gland 1.3 cm nodule concerning for metastasis. [facility], , 07/24/2024 1:30 PM
--- NOTE | 2024-07-24 15:58 | P.CONS ---
History of Present Illness - Reason for Consult Consult date: 07/24/24 hx lung cancer Requesting physician: Jaida Dolan - Chief Complaint hypotension, n/v/d - History of Present Illness Ms. Underwood is a 64 yo female patient with a significant history of COPD and small cell lung cancer. She is a patient of Dr. Thornton. Patient was initially seen on consult at [facility] on 07/19/23 for abn findings on CT chest w/wo 07/10/23. She came to hospital for progressive SOB since Sept after deing diagnosed with Covid. The CT reported rt pl effusion, septal thickening with ground glass opacities, RLL nodule, conglomerate mediastinal LAD, subcarinal mass 5.6 x 3.4 cm, microinvasion of the esophagus is not excluded, AP LN 18mm, prevascular space LN 5.1 x 2.2 cm, scattered lesions throughout liver largest measuring 2.8 cm in rt hepatic lobe, and 3.2cm in lt hepatic lobe, gastric hepatic LN measuring 7mm, nodular changes to adrenal glands. CTA was neg for PE, reported concerning findings most consistent with CT chest report. She had a bronch and biopsy with Dr. Moura 07/18/23 path positive for SCLC from rt mainstem transbronchial biopsy, synaptophysin, CD56 positive, Ki67 proliferative index greater then 20% of tumor cells. Station 4R and washings were non-diagnostic, rt mainstem brushings were suggestive of sm cell carcinoma. Brain MRI showed a small focus of enhancement in lt frontal lobe measuring 5mm, she is asymptomatic form the same, she did meet with Dr. Oneill, no treatment planned yet. CT AP reported multiple hepatic lesions, no ductal dilation, renal cortical cysts, non-specific thickening of bilateral adrenal glands, no ann marie mets. Because of symptoms and plans for rehab after prolonged hospitalization, she did receive 1st cycle of carbo/MANAGER VOICE inpt, which she tolerated very well, no significant SE or heme toxicities. She was discharged and went to rehab for 1 week. When seen in ofc today she is s/p 1 week in rehab. Status post 6 cycles of carboplatin and MANAGER VOICE- 16, completing those on 12/07/23. Tecentriq was added on with cycle 5 onwards. She was unable to receive it with the first 4 cycles, due to insurance issues. She then started immunotherapy alone. Repeat MRI ordered by radiation oncology in early 04/09 unfortunately showed development of brain metastases. CT chest abdomen and pelvis also showed progression, with development of multiple new lung nodules, progressive mediastinal adenopathy, as well as progressive disease in the liver. Regimen was discontinued, and she was referred back to radiation oncology for whole brain radiation. After completion of the same, she started second line treatment with carboplatin and irinotecan, on 04/22/24, completing cycle 3, day 1 on 07/04. Day 8 of treatment was delayed by 1 week for neutropenia. Day 8 of cycle 3 scheduled for 07/18/2024 was not done due to noted hypotension and GI toxicity. Patient reprsented to the ER for n/v/d, dehydration, and hypotension. Of note patient was admitted last week for the same. On admission chest x-ray negative for acute cardiopulmonary processes. Abdominal x-ray showing gaseous dilation of loops of bowel which is nonspecific, correlate for ileus versus small bowel obstruction. WBC 1.5, ANC 0.9, hemoglobin 11.0, platelets 61,000, creatinine 1.31, GFR 44. ANC 0.9. Bilirubins and LFTs WNL. During last admit C. diff icile testing on 07/18 was negative. Patient states since discharge her symptoms started to return having intractable nausea vomiting diarrhea despite use of supportive medications. Upon admit blood pressure was noted at 69/52. Patient was given IV fluids and Solu-Cortef. Blood pressure now stable. She has also been started on empiric antibiotics and G-CSF. Patient is afebrile Review of Systems 10 point ROS is negative except as stated in the HPI Past Medical History Past Medical History: Coronary Artery Disease (CAD), Cancer, Heart Failure, GERD/Reflux, Hyperlipidemia, Hypertension, Myocardial Infarction ([place]) Additional Past Medical History / Comment(s): VOCAL CORD POLYP, lung cancer Last Myocardial Infarction Date:: 2011 History of Any Multi-Drug Resistant Organisms: None Reported Past Surgical History: Heart Catheterization With Stent, Tonsillectomy, Tubal Ligation Additional Past Surgical History / Comment(s): JHON R.K. SX, VOCAL CHORD POLYPS REMOVED x2 Past Anesthesia/Blood Transfusion Reactions: No Reported Reaction Date of Last Stent Placement:: UNK Past Psychological History: No Psychological Hx Reported Smoking Status: Former smoker Past Alcohol Use History: None Reported Past Drug Use History: None Reported - Past Family History Sister(s) Family Medical History: Cancer Medications and Allergies Home Medications Medication Instructions Recorded Confirmed Type Aspirin 81 mg PO DAILY 07/29/14 07/24/24 History Carvedilol 25 mg PO BID 07/29/14 07/24/24 History Ondansetron [Zofran] 4 mg PO Q4HR PRN #45 tab 07/30/23 07/24/24 Rx Furosemide [Lasix] 40 mg PO DAILY 08/14/23 07/24/24 History Hydrocortisone 10 mg PO DAILY 07/04/24 07/24/24 History Magnesium Oxide [Mag-Ox] 400 mg PO DAILY 07/04/24 07/24/24 History Potassium Chloride ER [K-Dur 20] 20 meq PO DAILY 07/04/24 07/24/24 History Albuterol Nebulized [Ventolin 2.5 mg INHALATION RT-QID PRN 07/18/24 07/24/24 History Nebulized] Atorvastatin [Lipitor] 40 mg PO DAILY 07/18/24 07/24/24 History Hydrocortisone 5 mg PO HS 07/18/24 07/24/24 History Memantine [Namenda] 10 mg PO BID 07/18/24 07/24/24 History lisinopriL [Zestril] 5 mg PO DAILY 07/18/24 07/24/24 History Cholestyramine (with Sugar) 4 gm PO BID@1000,1800 15 Days #30 07/20/24 07/24/24 Rx [Questran Packet] packet Loperamide [Imodium] 2 mg PO QID 120 Days #30 cap 07/20/24 07/24/24 Rx Allergies Allergy/AdvReac Type Severity Reaction Status Date / Time No Known Allergies Allergy Verified 07/24/24 09:18 Physical Exam Vitals: Vital Signs Temp Pulse Pulse Resp BP BP Pulse Ox 07/24/24 07:45 98.3 F 116 H 16 111/77 97 07/24/24 07:00 111 H 16 131/82 97 07/24/24 06:00 116 H 18 131/72 97 07/24/24 04:00 103 H 16 121/68 97 07/24/24 02:00 94 17 114/73 96 07/24/24 00:00 85 16 87/49 98 07/23/24 22:00 81 18 92/49 98 07/23/24 20:08 86 18 111/60 07/23/24 18:28 95 18 103/65 97 07/23/24 17:35 102 H 18 77/46 97 07/23/24 17:29 104 H 18 80/55 97 07/23/24 17:17 97.8 F 113 H 18 69/52 98 Intake and Output 07/23/24 07/24/24 07/24/24 22:59 06:59 14:59 Other: Weight 77.111 kg - Constitutional General appearance: average body habitus, no acute distress - EENT Eyes: anicteric sclerae, EOMI ENT: hearing grossly normal - Respiratory Respiratory: bilateral: CTA - Cardiovascular Rhythm: regular - Gastrointestinal General gastrointestinal: hyperactive bowel sounds, soft, no tenderness - Integumentary Integumentary: no cyanotic, no jaundiced - Neurologic Neurologic: CNII-XII intact - Musculoskeletal Musculoskeletal: strength equal bilaterally - Psychiatric Psychiatric: A&O x's 3 Results CBC & Chem 7: 07/24/24 09:09 07/24/24 09:09 Labs: Abnormal Lab Results - Last 24 Hours (Table) 07/23/24 07/23/24 07/23/24 Range/Units 17:41 17:41 17:41 WBC 1.5 L (3.8-10.6) k/uL RBC 3.16 L (3.80-5.40) m/uL Hgb 11.0 L (11.4-16.0) gm/dL Hct 32.0 L (34.0-46.0) % MCV 101.4 H (80.0-100.0) fL RDW 16.5 H (11.5-15.5) % Plt Count 61 L (150-450) k/uL Neutrophils # 0.9 L (1.3-7.7) k/uL Lymphocytes # 0.4 L (1.0-4.8) k/uL PT 12.9 H (10.0-12.5) sec INR 1.2 H (<1.2) Sodium 132 L (137-145) mmol/L Creatinine 1.31 H (0.52-1.04) mg/dL Glucose 164 H (74-99) mg/dL Urine Appearance (Clear) Urine Protein (Negative) Urine Glucose (UA) (Negative) Urine Ketones (Negative) Urine Blood (Negative) Urine WBC (0-5) /hpf Ur Squamous Epith Cells (0-4) /hpf Urine Bacteria (None) /hpf Hyaline Casts (0-2) /lpf Urine Mucus (None) /hpf 07/23/24 Range/Units 21:07 WBC (3.8-10.6) k/uL RBC (3.80-5.40) m/uL Hgb (11.4-16.0) gm/dL Hct (34.0-46.0) % MCV (80.0-100.0) fL RDW (11.5-15.5) % Plt Count (150-450) k/uL Neutrophils # (1.3-7.7) k/uL Lymphocytes # (1.0-4.8) k/uL PT (10.0-12.5) sec INR (<1.2) Sodium (137-145) mmol/L Creatinine (0.52-1.04) mg/dL Glucose (74-99) mg/dL Urine Appearance Cloudy H (Clear) Urine Protein 2+ H (Negative) Urine Glucose (UA) Trace H (Negative) Urine Ketones 1+ H (Negative) Urine Blood Small H (Negative) Urine WBC 9 H (0-5) /hpf Ur Squamous Epith Cells 14 H (0-4) /hpf Urine Bacteria Rare H (None) /hpf Hyaline Casts 35 H (0-2) /lpf Urine Mucus Many H (None) /hpf Chest x-ray: report reviewed Abdominal x-ray: report reviewed Assessment and Plan (1) Adverse effect of chemotherapy Current Visit: Yes Status: Acute Priority: High Code(s): T45.1X5A - ADVERSE EFFECT OF ANTINEOPLASTIC AND IMMUNOSUP DRUGS, INIT SNOMED Code(s): 930171124 (2) Dehydration Current Visit: Yes Status: Acute Priority: High Code(s): E86.0 - DEHYDRATION SNOMED Code(s): 40858549 (3) Hypotension Current Visit: Yes Status: Acute Priority: High Code(s): I95.9 - HYPOTENSION, UNSPECIFIED SNOMED Code(s): 57120551 (4) Extensive stage primary small cell carcinoma of lung Current Visit: Yes Status: Acute Priority: High Code(s): C34.90 - MALIGNANT NEOPLASM OF UNSP PART OF UNSP BRONCHUS OR LUNG SNOMED Code(s): 566485977388614 Plan: N/V/D, hypotension: Represented to the hospital c/o intractable n/v/d. Recently discharged for the same, and states since discharge symptoms returned and progressively worsened -Given fluid bolus and solu-cortef with resolution of hypotension. Reporting persisting n/v/d -Chest x-ray negative for acute cardiopulmonary processes. Abdominal x-ray showing gaseous dilation of loops of bowel which is nonspecific, correlate for ileus versus small bowel obstruction. -Clear liquid diet started -Obtain CT abd/pelvis to r/o neutropenic colitis -C- diff testing on 07/18 negative. Will obtain stool culture. Blood culture pending -Empiric antibiotic and G-CSF started. WBC 1.5, ANC 0.9. Hgb 11.0, plt 61 -Continue supportive care measures and IV fluids. Anti-nausea and anti-diarrheal regimen adjusted -Daily CBC Metastatic small cell lung cancer: -History as dictated in the HPI -Currently on treatment with carboplatin and irinotecan, completing cycle 3, day 1 on 07/04. Day 8 of treatment was delayed by 1 week for neutropenia -Day 8 of cycle 3 scheduled for 07/18/2024 was not done due to noted hypotension and GI toxicity above -Treatment will be on hold until patient acutely recovers. Plan for dose reduction for future cycles Doctor attests: I performed a history and physical examination of this patient, developed impression and plan of care. Discussed with dictator. I agree with dictators note, documented as a scribe.
[2024-07-24] MEDS ORDERED: LOPERAMIDE 2 MG CAP PO PRN (16:00)
[2024-07-24] MEDS: carvediloL 12.5 MG TAB PO SCH (17:39)
--- NOTE | 2024-07-24 20:58 | P.HPIM ---
History of Present Illness H&P Date: 07/24/24 Chief Complaint: Nausea vomiting and diarrhea Patient is a 62-year-old female with known history of coronary disease with stent placement, lung cancer, vocal cord polyp status post removal, prior history of smoking, hypertension, hyperemia, history [place] and GERD as well as fermin or history of smoking presents to ER with complaints of intractable nausea vomiting and diarrhea since yesterday. Patient had her third dose of chemotherapy on Sunday. Patient was seen in the clinic and was recommended to admit the patient due to neutropenia and dehydration. Otherwise denied any chest pain or shortness of breath. No cough or sputum production. Denied any dysuria or hematuria. Chest x-ray showed no acute cardiopulmonary process. EKG showed sinus rhythm Laboratory showed WBC 1.5 hemoglobin 11.0 and platelets 61 Sodium 132 potassium 4.1 chloride 99 bicarb is 23 BUN 10 and creatinine 1.31 and blood sugar 164 liver enzymes not elevated. Urinalysis showed cloudy with RBCs 2 and WBCs 9 and squamous epithelial cells 14. Patient was given IV fluid bolus and continue with Solu-Cortef in the ER. Patient was given a dose of cefepime in the ER. Review of Systems Constitutional: Patient denies any fever or chills . No generalized weakness or weight loss. Abdomen: Patient denied nausea vomiting and diarrhea and abdominal pain. Cardiovascular: Patient denies any chest pain or short of breath no palpitations. Respiratory: patient denied any cough or sputum production. No shortness of breath Neurologic: Patient denied any numbness or tingling. no headache. Musculoskeletal: Patient denies any complaints of joint swelling or deformity. Skin: Negative Psychiatric: Negative Endocrine: No heat or cold intolerance. No recent weight gain. Genitourinary: No dysuria or hematuria. All other 14 point ROS negative except the above Past Medical History Past Medical History: Coronary Artery Disease (CAD), Cancer, Heart Failure, GERD/Reflux, Hyperlipidemia, Hypertension, Myocardial Infarction ([place]) Additional Past Medical History / Comment(s): VOCAL CORD POLYP, lung cancer Last Myocardial Infarction Date:: 2011 History of Any Multi-Drug Resistant Organisms: None Reported Past Surgical History: Heart Catheterization With Stent, Tonsillectomy, Tubal Ligation Additional Past Surgical History / Comment(s): JHON R.K. SX, VOCAL CHORD POLYPS REMOVED x2 Past Anesthesia/Blood Transfusion Reactions: No Reported Reaction Date of Last Stent Placement:: UNK Past Psychological History: No Psychological Hx Reported Smoking Status: Former smoker Past Alcohol Use History: None Reported Past Drug Use History: None Reported - Past Family History Sister(s) Family Medical History: Cancer Medications and Allergies Home Medications Medication Instructions Recorded Confirmed Type Aspirin 81 mg PO DAILY 07/29/14 07/24/24 History Carvedilol 25 mg PO BID 07/29/14 07/24/24 History Ondansetron [Zofran] 4 mg PO Q4HR PRN #45 tab 07/30/23 07/24/24 Rx Furosemide [Lasix] 40 mg PO DAILY 08/14/23 07/24/24 History Hydrocortisone 10 mg PO DAILY 07/04/24 07/24/24 History Magnesium Oxide [Mag-Ox] 400 mg PO DAILY 07/04/24 07/24/24 History Potassium Chloride ER [K-Dur 20] 20 meq PO DAILY 07/04/24 07/24/24 History Albuterol Nebulized [Ventolin 2.5 mg INHALATION RT-QID PRN 07/18/24 07/24/24 History Nebulized] Atorvastatin [Lipitor] 40 mg PO DAILY 07/18/24 07/24/24 History Hydrocortisone 5 mg PO HS 07/18/24 07/24/24 History Memantine [Namenda] 10 mg PO BID 07/18/24 07/24/24 History lisinopriL [Zestril] 5 mg PO DAILY 07/18/24 07/24/24 History Cholestyramine (with Sugar) 4 gm PO BID@1000,1800 15 Days #30 07/20/24 07/24/24 Rx [Questran Packet] packet Loperamide [Imodium] 2 mg PO QID 120 Days #30 cap 07/20/24 07/24/24 Rx Allergies Allergy/AdvReac Type Severity Reaction Status Date / Time No Known Allergies Allergy Verified 07/24/24 09:18 Physical Exam Vitals: Vital Signs Temp Pulse Pulse Resp BP BP Pulse Ox 07/24/24 07:45 98.3 F 116 H 16 111/77 97 07/24/24 07:00 111 H 16 131/82 97 07/24/24 06:00 116 H 18 131/72 97 07/24/24 04:00 103 H 16 121/68 97 07/24/24 02:00 94 17 114/73 96 07/24/24 00:00 85 16 87/49 98 07/23/24 22:00 81 18 92/49 98 07/23/24 20:08 86 18 111/60 07/23/24 18:28 95 18 103/65 97 07/23/24 17:35 102 H 18 77/46 97 07/23/24 17:29 104 H 18 80/55 97 07/23/24 17:17 97.8 F 113 H 18 69/52 98 Intake and Output 07/23/24 07/24/24 07/24/24 22:59 06:59 14:59 Other: Weight 77.111 kg PHYSICAL EXAMINATION: Patient is lying in the bed comfortably, no acute distress, awake alert and oriented.. HEENT: Normocephalic. Neck is supple. Pupils reactive. Nostrils clear. Oral cavity is moist. Neck reveals no JVD, carotid bruits, or thyromegaly. CHEST EXAMINATION: Trachea is central. Symmetrical expansion. Lung skelton clear to auscultation and percussion. CARDIAC: Normal S1, S2 with no gallops. No murmurs ABDOMEN: Soft. Bowel sounds normal. No organomegaly. No abdominal bruits. Extremities: reveal no edema. No clubbing or cyanosis Neurologically awake, alert, oriented x3 with well-coordinated movements. No focal deficits noted Skin: No rash or skin lesions. Psychiatric: Coperative. Nonsuicidal Musculoskeletal: No joint swelling or deformity. Normal range of motion. Results CBC & Chem 7: 07/24/24 09:09 07/24/24 09:09 Labs: Abnormal Lab Results - Last 24 Hours (Table) 07/23/24 07/23/24 07/23/24 Range/Units 17:41 17:41 17:41 WBC 1.5 L (3.8-10.6) k/uL RBC 3.16 L (3.80-5.40) m/uL Hgb 11.0 L (11.4-16.0) gm/dL Hct 32.0 L (34.0-46.0) % MCV 101.4 H (80.0-100.0) fL RDW 16.5 H (11.5-15.5) % Plt Count 61 L (150-450) k/uL Neutrophils # 0.9 L (1.3-7.7) k/uL Lymphocytes # 0.4 L (1.0-4.8) k/uL PT 12.9 H (10.0-12.5) sec INR 1.2 H (<1.2) Sodium 132 L (137-145) mmol/L Creatinine 1.31 H (0.52-1.04) mg/dL Glucose 164 H (74-99) mg/dL Urine Appearance (Clear) Urine Protein (Negative) Urine Glucose (UA) (Negative) Urine Ketones (Negative) Urine Blood (Negative) Urine WBC (0-5) /hpf Ur Squamous Epith Cells (0-4) /hpf Urine Bacteria (None) /hpf Hyaline Casts (0-2) /lpf Urine Mucus (None) /hpf 07/23/24 Range/Units 21:07 WBC (3.8-10.6) k/uL RBC (3.80-5.40) m/uL Hgb (11.4-16.0) gm/dL Hct (34.0-46.0) % MCV (80.0-100.0) fL RDW (11.5-15.5) % Plt Count (150-450) k/uL Neutrophils # (1.3-7.7) k/uL Lymphocytes # (1.0-4.8) k/uL PT (10.0-12.5) sec INR (<1.2) Sodium (137-145) mmol/L Creatinine (0.52-1.04) mg/dL Glucose (74-99) mg/dL Urine Appearance Cloudy H (Clear) Urine Protein 2+ H (Negative) Urine Glucose (UA) Trace H (Negative) Urine Ketones 1+ H (Negative) Urine Blood Small H (Negative) Urine WBC 9 H (0-5) /hpf Ur Squamous Epith Cells 14 H (0-4) /hpf Urine Bacteria Rare H (None) /hpf Hyaline Casts 35 H (0-2) /lpf Urine Mucus Many H (None) /hpf Thrombosis Risk Factor Assmnt - DVT/VTE Prophylaxis DVT/VTE Prophylaxis: Mechanical Prophylaxis ordered Assessment and Plan Assessment: Intractable nausea vomiting and diarrhea likely due to recent chemotherapy Dehydration volume depletion and hypotension Pancytopenia likely due to chemotherapy Metastatic small cell cancer currently on treatment with carboplatin, irinotecan completing cycle 3, day 1 on 07/04/2024. Further treatment delayed due to possible toxicity. Hypertension Hyperemia History of [place] Coronary history of stent placement Former history of smoking GI and DVT prophylaxis with Pepcid. Not on heparin due to thrombocytopenia Plan: Patient will be continued on IV hydration with normal saline. Continue with hydrocortisone 5 mg at bedtime and 10 mg daily. Blood pressure medications as tolerated. Continue with symptomatic management. GI bleed prophylaxis and follow closely. Oncology is on board. CT of the abdomen pelvis was ordered. Time with Patient: Greater than 30
[2024-07-24] MEDS: CEFEPIME 2 GM in SODIUM CHLORIDE 0.9% 100 ML IVPB SCH (21:47)
[2024-07-24] MEDS: HEPARIN SODIUM,PORCINE 5,000 UNIT/ML 1 ML VIAL SQ SCH (21:47)
[2024-07-24] MEDS: FAMOTIDINE 20 MG TAB PO SCH (21:47)
[2024-07-25 06:16] LABS: ALT 12 U/L (4-34); AST 13 U/L (14-36); African American GFR (CKD) >90 (>60 ml/min/1.73 sqM); Albumin 2.8 g/dL (3.5-5.0); Albumin/Globulin Ratio 1.1; Alkaline Phosphatase 61 U/L (38-126); Anion Gap 6 mmol/L; Blood Urea Nitrogen 14 mg/dL (7-17); Calcium 7.8 mg/dL (8.4-10.2); Carbon Dioxide 23 mmol/L (22-30); Chloride 104 mmol/L (98-107); Globulin 2.6 g/dL; Glucose 103 mg/dL (74-99); Non-African American GFR(CKD) >90 (>60 ml/min/1.73 sqM); Sodium 133 mmol/L (137-145); Total Bilirubin 0.6 mg/dL (0.2-1.3); Total Protein 5.4 g/dL (6.3-8.2)
[2024-07-25 06:22] LABS: Anisocytosis Slight; HCT 26.8 % (34.0-46.0); MCH 34.1 pg (25.0-35.0); MCHC 33.6 g/dL (31.0-37.0); MCV 101.6 fL (80.0-100.0); Macrocytosis Slight; Mean Platelet Volume 8.4; RBC 2.64 m/uL (3.80-5.40); RDW 16.3 % (11.5-15.5); WBC 1.7 k/uL (3.8-10.6)
[2024-07-25 06:24] LABS: Platelet Count 68 k/uL (150-450); Potassium 2.7 mmol/L (3.5-5.1)
[2024-07-25 07:50] LABS: Band Neutrophils % 3 %; Basophils # (M) 0.02 k/uL (0-0.2); Eosinophils # (M) 0.14 k/uL (0-0.7); Lymphocytes # (M) 0.71 k/uL (1.0-4.8); Monocytes # (M) 0.15 k/uL (0-1.0); Neutrophils % (M) 37 %; Nucleated Red Blood Cells 0 /100 WBC (0-0); Total Cells Counted 100
[2024-07-25] MEDS: POTASSIUM CHLORIDE ER 20 MEQ TAB.ER PO STA (08:15)
[2024-07-25] MEDS: ASPIRIN 81 MG PO SCH (08:16)
[2024-07-25] MEDS: ATORVASTATIN 40 MG TAB PO SCH (08:17)
[2024-07-25] MEDS: POTASSIUM CHLORIDE 10 MEQ in WATER FOR INJECTION 1 100ML.BAG IVPB SCH (08:17)
[2024-07-25] MEDS: KETOROLAC 15 MG/ML 1 ML VIAL IVP STA (09:55)
[2024-07-25] MEDS: lisinopriL 5 MG TAB PO SCH (10:41)
[2024-07-25] MEDS: LOPERAMIDE 2 MG CAP PO SCH (13:07)
--- NOTE | 2024-07-25 15:45 | P.PN ---
Subjective Progress Note Date: 07/25/24 Reporting improvement in n/v, did have 1 episode this morning after magnesium supplementation. Diarrhea persisting every cpl hours, no imodium has been used. Reports she has tolerated clear liquids but has been eating only small amounts Objective - Vital Signs Vital signs: Vital Signs Temp 98.4 F 07/25/24 07:16 Pulse 87 07/25/24 07:16 Resp 16 07/25/24 07:16 BP 106/66 07/25/24 10:41 Pulse Ox 99 07/25/24 07:16 FiO2 Intake & Output 07/24/24 07/25/24 07/25/24 18:59 06:59 18:59 Intake Total 540 Balance 540 Weight 77.111 kg Intake: Oral 540 Other: # Voids 2 # Bowel Movements 1 - Constitutional General appearance: Present: no acute distress - EENT Eyes: Present: anicteric sclerae, EOMI ENT: Present: hearing grossly normal - Respiratory Details: breathing is even and unlabored - Cardiovascular Details: skin warm and dry - Gastrointestinal Gastrointestinal Comment(s): mild tenderness in RLQ General gastrointestinal: Present: soft - Integumentary Integumentary: Absent: cyanotic - Neurologic Neurologic: Present: CNII-XII intact - Musculoskeletal Musculoskeletal: Present: strength equal bilaterally - Psychiatric Psychiatric: Present: A&O x's 3 - Labs CBC & Chem 7: 07/25/24 05:48 07/25/24 05:48 Labs: Abnormal Lab Results - Last 24 Hours (Table) 07/25/24 07/25/24 Range/Units 05:48 05:48 WBC 1.7 L (3.8-10.6) k/uL RBC 2.64 L (3.80-5.40) m/uL Hgb 9.0 L (11.4-16.0) gm/dL Hct 26.8 L (34.0-46.0) % MCV 101.6 H (80.0-100.0) fL RDW 16.3 H (11.5-15.5) % Plt Count 68 L (150-450) k/uL Neutrophils # (Manual) 0.60 L (1.3-7.7) k/uL Lymphocytes # (Manual) 0.71 L (1.0-4.8) k/uL Sodium 133 L (137-145) mmol/L Potassium 2.7 L* (3.5-5.1) mmol/L Glucose 103 H (74-99) mg/dL Calcium 7.8 L (8.4-10.2) mg/dL AST 13 L (14-36) U/L Total Protein 5.4 L (6.3-8.2) g/dL Albumin 2.8 L (3.5-5.0) g/dL Microbiology - Last 24 Hours (Table) 07/23/24 17:41 Blood Culture - Preliminary Blood - Imaging and Cardiology CT scan - abdomen: report reviewed CT scan - pelvis: report reviewed Assessment and Plan (1) Adverse effect of chemotherapy Current Visit: Yes Status: Acute Priority: High Code(s): T45.1X5A - ADVERSE EFFECT OF ANTINEOPLASTIC AND IMMUNOSUP DRUGS, INIT SNOMED Code(s): 853879663 (2) Dehydration Current Visit: Yes Status: Acute Priority: High Code(s): E86.0 - DEHYDRATION SNOMED Code(s): 08529623 (3) Hypotension Current Visit: Yes Status: Acute Priority: High Code(s): I95.9 - HYPOTENSION, UNSPECIFIED SNOMED Code(s): 87825335 (4) Extensive stage primary small cell carcinoma of lung Current Visit: Yes Status: Acute Priority: High Code(s): C34.90 - MALIGNANT NEOPLASM OF UNSP PART OF UNSP BRONCHUS OR LUNG SNOMED Code(s): 749901080631686 Plan: N/V/D, hypotension: Represented to the hospital c/o intractable n/v/d. Recently discharged for the same, and states since discharge symptoms returned and progressively worsened -Given fluid bolus and solu-cortef with resolution of hypotension. -Chest x-ray negative for acute cardiopulmonary processes. Abdominal x-ray showing gaseous dilation of loops of bowel which is nonspecific, correlate for ileus versus small bowel obstruction. -Clear liquid diet started, will slowly advance diet as symptoms improve -CT abd/pelvis showing mild small bowel distention without focal transition point to suggest obstruction. Wall thickening invovling the distal terminal ileum likely representing infectious/inflammatory ileitis and reactive ileitis. 2 ill-defined hepatic lesions and increasing size of left adrenal gland 1.3 cm nodule -C- diff testing on 07/18 negative. Stool culture pending. Blood culture negative thus far. Pt remains afebrile -Empiric antibiotic and G-CSF started with goal of ANC > 1000. WBC 1.7, ANC 0.6. Hgb 9.0, plt 68 -Continue supportive care measures and IV fluids. Anti-diarrheals scheduled QID -Daily CBC Metastatic small cell lung cancer: -History as dictated in the HPI -Currently on treatment with carboplatin and irinotecan, completing cycle 3, day 1 on 07/04. Day 8 of treatment was delayed by 1 week for neutropenia -Day 8 of cycle 3 scheduled for 07/18/2024 was not done due to noted hypotension and GI toxicity above -Treatment will be on hold until patient acutely recovers. Plan for dose reduction for future cycles
[2024-07-25] MEDS: CEFEPIME 2 GM in SODIUM CHLORIDE 0.9% 100 ML IVPB SCH (21:16)
--- NOTE | 2024-07-26 02:52 | P.PN ---
Subjective Progress Note Date: 07/25/24 Patient is a 62-year-old female with known history of coronary disease with stent placement, lung cancer, vocal cord polyp status post removal, prior history of smoking, hypertension, hyperemia, history AL and GERD as well as prior history of smoking presents to ER with complaints of intractable nausea vo miting and diarrhea since yesterday. Patient had her third dose of chemotherapy on Sunday. Patient was seen in the clinic and was recommended to admit the patient due to neutropenia and dehydration. Otherwise denied any chest pain or shortness of breath. No cough or sputum production. Denied any dysuria or hematuria. Chest x-ray showed no acute cardiopulmonary process. EKG showed sinus rhythm Laboratory showed WBC 1.5 hemoglobin 11.0 and platelets 61 Sodium 132 potassium 4.1 chloride 99 bicarb is 23 BUN 10 and creatinine 1.31 and blood sugar 164 liver enzymes not elevated. Urinalysis showed cloudy with RBCs 2 and WBCs 9 and squamous epithelial cells 14. Patient was given IV fluid bolus and continue with Solu-Cortef in the ER. Patient was given a dose of cefepime in the ER. 07/25/2024 Patient is lying in the bed. Awake alert and oriented. No complaints of chest pain or shortness of breath. Nausea did improve. Patient is able to tolerate clear liquid diet. Otherwise potassium level is 2.7 this morning. Other laboratory data showed WBC 1.7 hemoglobin 9.0 and platelets 68 Sodium 133 chloride 104 bicarb is 23 BUN 14 and creatinine 0.63 and blood sugar 103. Oncology is on board. Current medications reviewed. Objective - Vital Signs Vital signs: Vital Signs Temp 97.5 F L 07/25/24 13:17 Pulse 79 07/25/24 13:17 Resp 18 07/25/24 13:17 BP 102/67 07/25/24 13:17 Pulse Ox 98 07/25/24 15:38 FiO2 Intake & Output 07/24/24 07/25/24 07/25/24 18:59 06:59 18:59 Intake Total 540 Balance 540 Weight 77.111 kg Intake: Oral 540 Other: # Voids 2 # Bowel Movements 1 - Exam PHYSICAL EXAMINATION: Patient is lying in the bed comfortably, no acute distress, awake alert and oriented.. HEENT: Normocephalic. Neck is supple. Pupils reactive. Nostrils clear. Oral cavity is moist. Neck reveals no JVD, carotid bruits, or thyromegaly. CHEST EXAMINATION: Trachea is central. Symmetrical expansion. Lung skelton clear to auscultation and percussion. CARDIAC: Normal S1, S2 with no gallops. No murmurs ABDOMEN: Soft. Bowel sounds normal. No organomegaly. No abdominal bruits. Extremities: reveal no edema. No clubbing or cyanosis Neurologically awake, alert, oriented x3 with well-coordinated movements. No fo casey deficits noted Skin: No rash or skin lesions. Psychiatric: Coperative. Nonsuicidal Musculoskeletal: No joint swelling or deformity. Normal range of motion. - Labs CBC & Chem 7: 07/25/24 05:48 07/25/24 15:35 Labs: Abnormal Lab Results - Last 24 Hours (Table) 07/25/24 07/25/24 Range/Units 05:48 05:48 WBC 1.7 L (3.8-10.6) k/uL RBC 2.64 L (3.80-5.40) m/uL Hgb 9.0 L (11.4-16.0) gm/dL Hct 26.8 L (34.0-46.0) % MCV 101.6 H (80.0-100.0) fL RDW 16.3 H (11.5-15.5) % Plt Count 68 L (150-450) k/uL Neutrophils # (Manual) 0.60 L (1.3-7.7) k/uL Lymphocytes # (Manual) 0.71 L (1.0-4.8) k/uL Sodium 133 L (137-145) mmol/L Potassium 2.7 L* (3.5-5.1) mmol/L Glucose 103 H (74-99) mg/dL Calcium 7.8 L (8.4-10.2) mg/dL AST 13 L (14-36) U/L Total Protein 5.4 L (6.3-8.2) g/dL Albumin 2.8 L (3.5-5.0) g/dL Microbiology - Last 24 Hours (Table) 07/23/24 17:41 Blood Culture - Preliminary Blood Assessment and Plan Assessment: Intractable nausea vomiting and diarrhea likely due to recent chemotherapy Dehydration volume depletion and hypotension Severe hypokalemia Pancytopenia likely due to chemotherapy Metastatic small cell cancer currently on treatment with carboplatin, irinotecan completing cycle 3, day 1 on 07/04/2024. Further treatment delayed due to possible toxicity. Hypertension Hyperemia History of [place] Coronary history of stent placement Former history of smoking GI and DVT prophylaxis with Pepcid. Not on heparin due to thrombocytopenia Plan: Patient will be continued on IV hydration with normal saline. Continue with hydrocortisone 5 mg at bedtime and 10 mg daily. Blood pressure medications as tolerated. Continue with symptomatic management. Patient was started on a clear liquid diet and advance as tolerated. Follow-up CBC and BMP. GI, DVT prophylaxis prophylaxis and follow closely. Oncology is on board. CT of the abdomen pelvis report reviewed.
[2024-07-26 08:42] LABS: ALT 14 U/L (4-34); AST 14 U/L (14-36); African American GFR (CKD) >90 (>60 ml/min/1.73 sqM); Albumin 2.6 g/dL (3.5-5.0); Albumin/Globulin Ratio 1.1; Alkaline Phosphatase 54 U/L (38-126); Anion Gap 12 mmol/L; Blood Urea Nitrogen 9 mg/dL (7-17); Calcium 7.8 mg/dL (8.4-10.2); Carbon Dioxide 15 mmol/L (22-30); Chloride 110 mmol/L (98-107); Globulin 2.3 g/dL; Glucose 63 mg/dL (74-99); Non-African American GFR(CKD) >90 (>60 ml/min/1.73 sqM); Potassium 3.1 mmol/L (3.5-5.1); Sodium 137 mmol/L (137-145); Total Bilirubin 0.4 mg/dL (0.2-1.3); Total Protein 4.9 g/dL (6.3-8.2)
[2024-07-26] MEDS ORDERED: Potassium Replacement Protocol 1 EACH MISC MISCELLANE PRN (10:42)
[2024-07-26] MEDS: POTASSIUM CHLORIDE ER 20 MEQ TAB.ER PO SCH (11:45)
[2024-07-26 12:17] LABS: Basophils # (A) 0.03 X 10*3/uL (0.00-0.10); Basophils % (A) 1.9 %; Eosinophils # (A) 0.03 X 10*3/uL (0.04-0.35); Eosinophils % (A) 1.9 %; HCT 24.5 % (37.2-46.3); HGB 7.9 g/dL (12.0-15.0); Lymphocytes # (A) 0.58 X 10*3/uL (0.90-5.00); Lymphocytes % (A) 35.8 %; MCH 34.1 pg (27.0-32.0); MCHC 32.2 g/dL (32.0-37.0); MCV 105.6 FL (80.0-97.0); Macrocytosis (M) 2+; Mean Platelet Volume 10.7 FL (9.5-12.2); Monocytes % (A) 18.5 %; NRBC Per 100 WBC 0.04 X 10*3/uL (0.00-0.01); Neutrophils # (A) 0.66 X 10*3/uL (1.80-7.70); Neutrophils % (A) 40.7 %; Platelet Count 71 X 10*3/uL (140-440); RBC 2.32 X 10*6/uL (4.10-5.20); RDW 17.2 % (11.5-14.5); Toxic Granulation 2+; WBC 1.62 X 10*3/uL (4.50-10.00)
--- NOTE | 2024-07-26 13:45 | P.PN ---
Subjective Progress Note Date: 07/26/24 Patient is a 62-year-old female with known history of coronary disease with stent placement, lung cancer, vocal cord polyp status post removal, prior history of smoking, hypertension, hyperemia, history [place] and GERD as well as prior history of smoking presents to ER with complaints of intractable nausea vomiting and diarrhea since yesterday. Patient had her third dose of chemotherapy on Sunday. Patient was seen in the clinic and was recommended to admit the patient due to neutropenia and dehydration. Otherwise denied any chest pain or shortness of breath. No cough or sputum production. Denied any dysuria or hematuria. Chest x-ray showed no acute cardiopulmonary process. EKG showed sinus rhythm Laboratory showed WBC 1.5 hemoglobin 11.0 and platelets 61 Sodium 132 potassium 4.1 chloride 99 bicarb is 23 BUN 10 and creatinine 1.31 and blood sugar 164 liver enzymes not elevated. Urinalysis showed cloudy with RBCs 2 and WBCs 9 and squamous epithelial cells 14. Patient was given IV fluid bolus and continue with Solu-Cortef in the ER. Patient was given a dose of cefepime in the ER. 07/25/2024 Patient is lying in the bed. Awake alert and oriented. No complaints of chest pain or shortness of breath. Nausea did improve. Patient is able to tolerate clear liquid diet. Otherwise potassium level is 2.7 this morning. Other laboratory data showed WBC 1.7 hemoglobin 9.0 and platelets 68 Sodium 133 chloride 104 bicarb is 23 BUN 14 and creatinine 0.63 and blood sugar 103. Oncology is on board. 07/26. Patient seen and examined. Denies abdominal pain. Still having diarrhea. Denies any lethargy or weakness. REVIEW OF SYSTEMS: CONSTITUTIONAL: No fever, no malaise,. CARDIOVASCULAR: No chest pain, no palpitations, no syncope. PULMONARY: No shortness of breath, no cough, GASTROINTESTINAL: As mentioned above NEUROLOGICAL: No headaches, no weakness, PHYSICAL EXAMINATION: GENERAL: The patient is alert and oriented x3, chronically ill looking HEENT: Pupils are round and equally reacting to light. EOMI. No scleral icterus. No conjunctival pallor. Normocephalic, atraumatic. No pharyngeal erythema. No thyromegaly. CARDIOVASCULAR: S1 and S2 present. No murmurs, rubs, or gallops. PULMONARY: Chest is clear to auscultation, no wheezing or crackles. ABDOMEN: Soft, nontender, nondistended, normoactive bowel sounds. No palpable organomegaly. MUSCULOSKELETAL: No joint swelling or deformity. EXTREMITIES: No cyanosis, clubbing, or pedal edema. NEUROLOGICAL: Gross neurological examination did not reveal any focal deficits. SKIN: No rashes. Assessment and plan Intractable nausea vomiting and diarrhea likely due to recent chemotherapy Acute ileitis Dehydration volume depletion and hypotension Severe hypokalemia Pancytopenia likely due to chemotherapy Metastatic small cell cancer currently on treatment with carboplatin, irinotecan completing cycle 3, day 1 on 07/04/2024. Further treatment delayed due to possible toxicity. Hypertension Hyperemia History of [place] Coronary history of stent placement Former history of smoking Monitor vital signs Monitor CBC Monitor CMP Continue IV hydration Continue antiemetics Continue IV cefepime Hematology oncology following ID following Labs and medication were reviewed.. Continue same treatment. Continue with symptomatic treatment. Resume home medication. Monitor labs and vitals. DVT and GI prophylaxis. Further recommendations as per clinical course of the patient Dictation was produced using [employer] dictation software. please excuse any grammatical, word or spelling errors. Objective - Vital Signs Vital signs: Vital Signs Temp 97.7 F 07/26/24 07:22 Pulse 78 07/26/24 07:22 Resp 16 07/26/24 07:22 BP 109/67 07/26/24 07:22 Pulse Ox 99 07/26/24 07:22 FiO2 Intake & Output 07/25/24 07/26/24 07/26/24 18:59 06:59 18:59 Intake Total 2680 Output Total 50 Balance 2630 Intake: Intake, IV Titration 1400 Amount Cefepime 2 gm In Sodium 100 Chloride 0.9% 100 ml @ 25 mls/hr IVPB Q12HR [facility] Rx #:[id number] Potassium Chloride 10 meq 400 In Water For Injection 1 100ml.bag @ 100 mls/hr IVPB Q1HR [facility] Rx#: [id number] Sodium Chloride 0.9% 1, 900 000 ml @ 75 mls/hr IV . [id number] [facility] Rx#:[id number] Oral 1280 Output: Emesis 50 Other: # Voids 2 1 # Bowel Movements 4 - Labs CBC & Chem 7: 07/26/24 07:01 07/26/24 06:53 Labs: Abnormal Lab Results - Last 24 Hours (Table) 07/26/24 Range/Units 06:53 Potassium 3.1 L (3.5-5.1) mmol/L Chloride 110 H (98-107) mmol/L Carbon Dioxide 15 L (22-30) mmol/L Glucose 63 L (74-99) mg/dL Calcium 7.8 L (8.4-10.2) mg/dL Total Protein 4.9 L (6.3-8.2) g/dL Albumin 2.6 L (3.5-5.0) g/dL Microbiology - Last 24 Hours (Table) 07/24/24 10:10 Stool Culture - Preliminary Stool 07/23/24 17:41 Blood Culture - Preliminary Blood
[2024-07-26] MEDS ORDERED: DIPHENOX-ATROP 2.5-0.025 MG 1 EACH TAB PO PRN (14:11)
[2024-07-26] MEDS: metroNIDAZOLE 500 MG TAB PO SCH (15:24)
[2024-07-26] MEDS: CHOLESTYRAMINE (WITH SUGAR) 4 GM PACKET PO SCH (17:52)
--- NOTE | 2024-07-26 18:16 | P.PN ---
Subjective Progress Note Date: 07/26/24 Reporting improvement in n/v, did have 1 episode last night. Diarrhea persisting, despite scheduled imodium. Will add lomotil. Tolerating clear liquids. Continues on IV abx, remains afebrile. Leukopenia persisting Objective - Vital Signs Vital signs: Vital Signs Temp 97.7 F 07/26/24 07:22 Pulse 78 07/26/24 07:22 Resp 16 07/26/24 07:22 BP 109/67 07/26/24 07:22 Pulse Ox 99 07/26/24 07:22 FiO2 Intake & Output 07/25/24 07/26/24 07/26/24 18:59 06:59 18:59 Intake Total 2680 Output Total 50 Balance 2630 Intake: Intake, IV Titration 1400 Amount Cefepime 2 gm In Sodium 100 Chloride 0.9% 100 ml @ 25 mls/hr IVPB Q12HR [facility] Rx #:[id number] Potassium Chloride 10 meq 400 In Water For Injection 1 100ml.bag @ 100 mls/hr IVPB Q1HR [facility] Rx#: [id number] Sodium Chloride 0.9% 1, 900 000 ml @ 75 mls/hr IV . [id number] [facility] Rx#:[id number] Oral 1280 Output: Emesis 50 Other: # Voids 2 1 # Bowel Movements 4 - Constitutional General appearance: Present: average body habitus, no acute distress - EENT Eyes: Present: anicteric sclerae, EOMI ENT: Present: hearing grossly normal - Respiratory Details: breathing is even and unlabored - Cardiovascular Details: skin warm and dry - Gastrointestinal Gastrointestinal Comment(s): mild RLQ tenderness, no guarding General gastrointestinal: Present: soft - Integumentary Integumentary: Absent: cyanotic - Neurologic Neurologic: Present: CNII-XII intact - Musculoskeletal Musculoskeletal: Present: strength equal bilaterally - Psychiatric Psychiatric: Present: A&O x's 3 - Labs CBC & Chem 7: 07/26/24 07:01 07/26/24 06:53 Labs: Abnormal Lab Results - Last 24 Hours (Table) 07/26/24 Range/Units 06:53 Potassium 3.1 L (3.5-5.1) mmol/L Chloride 110 H (98-107) mmol/L Carbon Dioxide 15 L (22-30) mmol/L Glucose 63 L (74-99) mg/dL Calcium 7.8 L (8.4-10.2) mg/dL Total Protein 4.9 L (6.3-8.2) g/dL Albumin 2.6 L (3.5-5.0) g/dL Microbiology - Last 24 Hours (Table) 07/24/24 10:10 Stool Culture - Preliminary Stool 07/23/24 17:41 Blood Culture - Preliminary Blood Assessment and Plan (1) Adverse effect of chemotherapy Current Visit: Yes Status: Acute Priority: High Code(s): T45.1X5A - ADVERSE EFFECT OF ANTINEOPLASTIC AND IMMUNOSUP DRUGS, INIT SNOMED Code(s): 667884126 (2) Dehydration Current Visit: Yes Status: Acute Priority: High Code(s): E86.0 - DEHYDRATION SNOMED Code(s): 39905827 (3) Hypotension Current Visit: Yes Status: Acute Priority: High Code(s): I95.9 - HYPOTENSION, UNSPECIFIED SNOMED Code(s): 65075729 (4) Extensive stage primary small cell carcinoma of lung Current Visit: Yes Status: Acute Priority: High Code(s): C34.90 - MALIGNANT NEOPLASM OF UNSP PART OF UNSP BRONCHUS OR LUNG SNOMED Code(s): 578926169646716 Plan: N/V/D, hypotension: Represented to the hospital c/o intractable n/v/d. Recently discharged for the same, and states since discharge symptoms returned and progressively worsened -Given fluid bolus and solu-cortef with resolution of hypotension. -Chest x-ray negative for acute cardiopulmonary processes. Abdominal x-ray showing gaseous dilation of loops of bowel which is nonspecific, correlate for ileus versus small bowel obstruction. -Tolerating clear liquids, will advance to full liquid diet. Will slowly advance diet as symptoms improve -CT abd/pelvis showing mild small bowel distention without focal transition point to suggest obstruction. Wall thickening invovling the distal terminal ileum likely representing infectious/inflammatory ileitis and reactive ileitis. 2 ill-defined hepatic lesions and increasing size of left adrenal gland 1.3 cm nodule -C- diff testing on 07/18 negative. Stool culture pending. Blood culture negative thus far. Pt remains afebrile -Empiric antibiotic and G-CSF started with goal of ANC > 1000. WBC 1.6, ANC 0.66. Hgb 7.9, plt 71 -Continue supportive care measures and IV fluids. Anti-diarrheals adjusted -Daily CBC Metastatic small cell lung cancer: -History as dictated in the HPI -Currently on treatment with carboplatin and irinotecan, completing cycle 3, day 1 on 07/04. Day 8 of treatment was delayed by 1 week for neutropenia -Day 8 of cycle 3 scheduled for 07/18/2024 was not done due to noted hypotension and GI toxicity above -Treatment will be on hold until patient acutely recovers. Plan for dose reduct ion for future cycles
--- NOTE | 2024-07-26 22:44 | P.CONS ---
History of Present Illness - Reason for Consult Consult date: 07/26/24 Persistent diarrhea, immunosuppressed Requesting physician: Thanh Blum - Chief Complaint Diarrhea x few days - History of Present Illness Patient is a 64-year-old female with a past medical history significant for coronary disease hypertension hyperlipidemia PA reflux in this patient also with a history of lung cancer for the patient has been on chemotherapy patient recently did have admission to the hospital with intractable nausea vomiting and diarrhea for the patient was admitted to hospital from 07/18/2023 till 07/20/2023 and at that time patient tested negative for C. difficile and the patient clinically improved with the oral Questran and was subsequently discharged patient mention she did okay for next 2 to 3 days subsequently having worsening diarrhea for the patient came back to the hospital patient has been complaining of multiple loose stools per day denies having any blood or mucus in the stool some crampy lower abdominal pain moderate intensity and has had nausea but no vomiting patient on presentation to the hospital was afebrile and no fever have been recorded subsequently patient was mildly tachycardic on admission but not hypotensive or hypoxic she did have a low white count of 0.9 which is up to 1.62 creatinine is 0.55 sodium was low urine has been negative stool for C. difficile was not repeated stool culture has been obtained which are currently pending patient did have abdominal pelvis CT mild small bowel dilatation without focal transition point to suggest obstruction wall thickening involving the distal terminal ileum likely representing an infectious inflammatory etiology patient has been started on cefepime infectious was consulted because of persistent diarrhea Review of Systems Positive point and negatives has been mentioned in the HPI, complete review of systems was performed and all other systems are negative Past Medical History Past Medical History: Coronary Artery Disease (CAD), Cancer, Heart Failure, GERD/Reflux, Hyperlipidemia, Hypertension, Myocardial Infarction (PA) Additional Past Medical History / Comment(s): VOCAL CORD POLYP, lung cancer Last Myocardial Infarction Date:: 2011 History of Any Multi-Drug Resistant Organisms: None Reported Past Surgical History: Heart Catheterization With Stent, Tonsillectomy, Tubal Ligation Additional Past Surgical History / Comment(s): JHON R.K. SX, VOCAL CHORD POLYPS REMOVED x2 Past Anesthesia/Blood Transfusion Reactions: No Reported Reaction Date of Last Stent Placement:: UNK Past Psychological History: No Psychological Hx Reported Smoking Status: Former smoker Past Alcohol Use History: None Reported Past Drug Use History: None Reported - Past Family History Sister(s) Family Medical History: Cancer Medications and Allergies Home Medications Medication Instructions Recorded Confirmed Type Aspirin 81 mg PO DAILY 07/29/14 07/24/24 History Carvedilol 25 mg PO BID 07/29/14 07/24/24 History Ondansetron [Zofran] 4 mg PO Q4HR PRN #45 tab 07/30/23 07/24/24 Rx Furosemide [Lasix] 40 mg PO DAILY 08/14/23 07/24/24 History Hydrocortisone 10 mg PO DAILY 07/04/24 07/24/24 History Magnesium Oxide [Mag-Ox] 400 mg PO DAILY 07/04/24 07/24/24 History Potassium Chloride ER [K-Dur 20] 20 meq PO DAILY 07/04/24 07/24/24 History Albuterol Nebulized [Ventolin 2.5 mg INHALATION RT-QID PRN 07/18/24 07/24/24 History Nebulized] Atorvastatin [Lipitor] 40 mg PO DAILY 07/18/24 07/24/24 History Hydrocortisone 5 mg PO HS 07/18/24 07/24/24 History Memantine [Namenda] 10 mg PO BID 07/18/24 07/24/24 History lisinopriL [Zestril] 5 mg PO DAILY 07/18/24 07/24/24 History Cholestyramine (with Sugar) 4 gm PO BID@1000,1800 15 Days #30 07/20/24 07/24/24 Rx [Questran Packet] packet Loperamide [Imodium] 2 mg PO QID 120 Days #30 cap 07/20/24 07/24/24 Rx Allergies Allergy/AdvReac Type Severity Reaction Status Date / Time No Known Allergies Allergy Verified 07/24/24 09:18 Physical Exam Vitals: Vital Signs Temp Pulse Resp BP Pulse Ox 07/26/24 07:22 97.7 F 78 16 109/67 99 07/26/24 01:03 98.3 F 89 16 99/62 97 07/25/24 20:00 94 16 07/25/24 19:11 98.3 F 94 16 121/74 99 07/25/24 15:38 98 07/25/24 13:17 97.5 F L 79 18 102/67 98 Intake and Output 07/25/24 07/26/24 07/26/24 22:59 06:59 14:59 Intake Total 2680 Output Total 50 Balance 2630 Intake: Intake, IV Titration 1400 Amount Cefepime 2 gm In Sodium 100 Chloride 0.9% 100 ml @ 25 mls/hr IVPB Q12HR [facility] Rx #:[id number] Potassium Chloride 10 meq 400 In Water For Injection 1 100ml.bag @ 100 mls/hr IVPB Q1HR [facility] Rx#: [id number] Sodium Chloride 0.9% 1, 900 000 ml @ 75 mls/hr IV . [id number] [facility] Rx#:[id number] Oral 1280 Output: Emesis 50 Other: # Voids 2 1 # Bowel Movements 4 GENERAL DESCRIPTION: Middle-aged female lying in bed, no distress. No tachypnea or accessory muscle of respiration use. HEENT: Shows Pallor , no scleral icterus. Oral mucous membrane is dry. No pharyngeal erythema or thrush NECK: Trachea central, no thyromegaly. LUNGS: Unlabored breathing. Clear to auscultation anteriorly. No wheeze or cr ackle. HEART: S1, S2, regular rate and rhythm. No loud murmur ABDOMEN: Soft, no tenderness , guarding or rigidity, no organomegaly EXTREMITIES: No edema of feet. SKIN: No rash, no masses palpable. NEUROLOGICAL: The patient is awake, alert, oriented x3, mood and affect normal. Results CBC & Chem 7: 07/26/24 07:01 07/26/24 06:53 Labs: Abnormal Lab Results - Last 24 Hours (Table) 07/26/24 Range/Units 06:53 Potassium 3.1 L (3.5-5.1) mmol/L Chloride 110 H (98-107) mmol/L Carbon Dioxide 15 L (22-30) mmol/L Glucose 63 L (74-99) mg/dL Calcium 7.8 L (8.4-10.2) mg/dL Total Protein 4.9 L (6.3-8.2) g/dL Albumin 2.6 L (3.5-5.0) g/dL Microbiology - Last 24 Hours (Table) 07/24/24 10:10 Stool Culture - Preliminary Stool 07/23/24 17:41 Blood Culture - Preliminary Blood Assessment and Plan (1) Ileitis, terminal Current Visit: Yes Status: Acute Code(s): K50.00 - CROHN'S DISEASE OF SMALL INTESTINE WITHOUT COMPLICATIONS SNOMED Code(s): 447406625 (2) Diarrhea Current Visit: No Status: Acute Code(s): R19.7 - DIARRHEA, UNSPECIFIED SNOMED Code(s): 42525818 (3) Leukopenia Current Visit: No Status: Acute Code(s): D72.819 - DECREASED WHITE BLOOD CELL COUNT, UNSPECIFIED SNOMED Code(s): 82639406 Plan: 1patient presented to hospital with recurrent episode of nausea vomiting and diarrhea in this patient who recently tested negative for C. difficile she did have CT of abdominal pelvis done on 07/24/2024 that has been suggestive of ile itis and question of infectious/inflammatory etiology 2-we are currently waiting for the stool culture to be finalized 3- will add Questran for symptomatic relief with concern for infectious etiology we will discontinue the Lomotil and the Imodium 4-we will continue with the cefepime however add Flagyl We will follow on clinical condition and cultures to further adjust medication if needed Thank you for this consultation we will follow the patient along with you Dictation was produced using [employer] dictation software. please excuse any grammatical, word or spelling errors. Time with Patient: Greater than 30
[2024-07-27] MEDS: POTASSIUM CHLORIDE ER 20 MEQ TAB.ER PO SCH ×2 (08:28→22:41)
[2024-07-27 12:02] LABS: Band Neutrophils % 2 %; Basophils # (M) 0.02 X 10*3/uL (0.00-0.10); Eosinophils # (M) 0.05 X 10*3/uL (0.04-0.35); HCT 24.5 % (37.2-46.3); HGB 7.9 g/dL (12.0-15.0); MCH 34.1 pg (27.0-32.0); MCHC 32.2 g/dL (32.0-37.0); MCV 105.6 FL (80.0-97.0); Macrocytosis (M) 2+; Mean Platelet Volume 11.1 FL (9.5-12.2); Metamyelocytes % 1 % (0-0); Myelocytes % 2 % (0-0); NRBC Per 100 WBC 0.08 X 10*3/uL (0.00-0.01); Neutrophils # (M) 0.64 X 10*3/uL (1.80-7.70); Neutrophils % (M) 26 %; Platelet Count 87 X 10*3/uL (140-440); RBC 2.32 X 10*6/uL (4.10-5.20); RDW 16.9 % (11.5-14.5); WBC 2.28 X 10*3/uL (4.50-10.00)
--- NOTE | 2024-07-27 12:36 | P.PN ---
Subjective Progress Note Date: 07/27/24 Patient is a 62-year-old female with known history of coronary disease with stent placement, lung cancer, vocal cord polyp status post removal, prior history of smoking, hypertension, hyperemia, history SD and GERD as well as prior history of smoking presents to ER with complaints of intractable nausea vomiting and diarrhea since yesterday. Patient had her third dose of chemotherapy on Sunday. Patient was seen in the clinic and was recommended to admit the patient due to neutropenia and dehydration. Otherwise denied any chest pain or shortness of breath. No cough or sputum production. Denied any dysuria or hematuria. Chest x-ray showed no acute cardiopulmonary process. EKG showed sinus rhythm Laboratory showed WBC 1.5 hemoglobin 11.0 and platelets 61 Sodium 132 potassium 4.1 chloride 99 bicarb is 23 BUN 10 and creatinine 1.31 and blood sugar 164 liver enzymes not elevated. Urinalysis showed cloudy with RBCs 2 and WBCs 9 and squamous epithelial cells 14. Patient was given IV fluid bolus and continue with Solu-Cortef in the ER. Patient was given a dose of cefepime in the ER. 07/25/2024 Patient is lying in the bed. Awake alert and oriented. No complaints of chest pain or shortness of breath. Nausea did improve. Patient is able to tolerate clear liquid diet. Otherwise potassium level is 2.7 this morning. Other laboratory data showed WBC 1.7 hemoglobin 9.0 and platelets 68 Sodium 133 chloride 104 bicarb is 23 BUN 14 and creatinine 0.63 and blood sugar 103. Oncology is on board. 07/26. Patient seen and examined. Denies abdominal pain. Still having diarrhea. Denies any lethargy or weakness. 07/27. Patient seen and examined. Still having diarrhea blood work done this morning showed WBC 2.28, hemoglobin 7.9, platelet count 87, potassium 2.9 REVIEW OF SYSTEMS: CONSTITUTIONAL: No fever, no malaise,. CARDIOVASCULAR: No chest pain, no palpitations, no syncope. PULMONARY: No shortness of breath, no cough, GASTROINTESTINAL: As mentioned above NEUROLOGICAL: No headaches, no weakness, PHYSICAL EXAMINATION: GENERAL: The patient is alert and oriented x3, chronically ill looking HEENT: Pupils are round and equally reacting to light. EOMI. No scleral icterus. No conjunctival pallor. Normocephalic, atraumatic. No pharyngeal erythema. No thyromegaly. CARDIOVASCULAR: S1 and S2 present. No murmurs, rubs, or gallops. PULMONARY: Chest is clear to auscultation, no wheezing or crackles. ABDOMEN: Soft, nontender, nondistended, normoactive bowel sounds. No palpable organomegaly. MUSCULOSKELETAL: No joint swelling or deformity. EXTREMITIES: No cyanosis, clubbing, or pedal edema. NEUROLOGICAL: Gross neurological examination did not reveal any focal deficits. SKIN: No rashes. Assessment and plan Intractable nausea vomiting and diarrhea likely due to recent chemotherapy Acute ileitis Dehydration volume depletion and hypotension Severe hypokalemia Pancytopenia likely due to chemotherapy Metastatic small cell cancer currently on treatment with carboplatin, irinotecan completing cycle 3, day 1 on 07/04/2024. Further treatment delayed due to possible toxicity. Hypertension Hyperemia History of SD Coronary history of stent placement Former history of smoking Monitor vital signs Monitor CBC Monitor CMP Continue IV hydration Continue antiemetics Continue IV cefepime and Flagyl Potassium replacement ordered Hematology oncology following ID following Labs and medication were reviewed.. Continue same treatment. Continue with symptomatic treatment. Resume home medication. Monitor labs and vitals. DVT and GI prophylaxis. Further recommendations as per clinical course of the patient Dictation was produced using [employer] dictation software. please excuse any grammatical, word or spelling errors. Objective - Vital Signs Vital signs: Vital Signs Temp 97.7 F 07/27/24 12:08 Pulse 82 07/27/24 12:08 Resp 16 07/27/24 12:08 BP 97/60 07/27/24 12:08 Pulse Ox 97 07/27/24 12:08 FiO2 Intake & Output 07/26/24 07/27/24 07/27/24 18:59 06:59 18:59 Other: # Voids 1 - Labs CBC & Chem 7: 07/27/24 06:28 07/27/24 06:28 Labs: Abnormal Lab Results - Last 24 Hours (Table) 07/27/24 07/27/24 Range/Units 06:28 06:28 WBC 2.28 L (4.50-10.00) X 10*3/uL RBC 2.32 L (4.10-5.20) X 10*6/uL Hgb 7.9 L (12.0-15.0) g/dL Hct 24.5 L (37.2-46.3) % MCV 105.6 H (80.0-97.0) FL MCH 34.1 H (27.0-32.0) pg RDW 16.9 H (11.5-14.5) % Plt Count 87 L (140-440) X 10*3/uL Neutrophils # (Manual) 0.64 L (1.80-7.70) X 10*3/uL NRBC/100 WBC Diff 0.08 H (0.00-0.01) X 10*3/uL Macrocytosis (manual) 2+ A Potassium 2.9 L (3.5-5.1) mmol/L Microbiology - Last 24 Hours (Table) 07/24/24 10:10 Stool Culture - Preliminary Stool 07/23/24 17:41 Blood Culture - Preliminary Blood
--- NOTE | 2024-07-27 12:39 | P.PN ---
Subjective Progress Note Date: 07/27/24 Reporting cpl episodes of n/v yesterday, no episodes today. Diarrhea persisting, had 3-4 episodes this morning. Reports early satiety and feeling very bloated and full when eating. Will switch diet back to clear liquids. Continues on IV abx, remains afebrile. WBC improved today to 2.28, continues on G-CSF Objective - Vital Signs Vital signs: Vital Signs Temp 98.3 F 07/27/24 07:20 Pulse 85 07/27/24 07:20 Resp 16 07/27/24 07:20 BP 119/73 07/27/24 07:20 Pulse Ox 98 07/27/24 07:20 FiO2 Intake & Output 07/26/24 07/27/24 07/27/24 18:59 06:59 18:59 Other: # Voids 1 - Constitutional General appearance: Present: average body habitus, no acute distress - EENT Eyes: Present: anicteric sclerae, EOMI ENT: Present: hearing grossly normal - Respiratory Details: breathing even and unlabored - Cardiovascular Details: well perfused - Gastrointestinal Gastrointestinal Comment(s): mild lower abd tenderness, no guarding or rebound tenderness noted General gastrointestinal: Present: soft, tenderness. Absent: distended - Integumentary Integumentary: Absent: cyanotic - Psychiatric Psychiatric: Present: A&O x's 3 - Labs CBC & Chem 7: 07/27/24 06:28 07/27/24 06:28 Labs: Abnormal Lab Results - Last 24 Hours (Table) 07/26/24 07/27/24 Range/Units 07:01 06:28 WBC 1.62 L (4.50-10.00) X 10*3/uL RBC 2.32 L (4.10-5.20) X 10*6/uL Hgb 7.9 L (12.0-15.0) g/dL Hct 24.5 L (37.2-46.3) % MCV 105.6 H (80.0-97.0) FL MCH 34.1 H (27.0-32.0) pg RDW 17.2 H (11.5-14.5) % Plt Count 71 L (140-440) X 10*3/uL Neutrophils # 0.66 L (1.80-7.70) X 10*3/uL Lymphocytes # 0.58 L (0.90-5.00) X 10*3/uL Eosinophils # 0.03 L (0.04-0.35) X 10*3/uL NRBC/100 WBC Diff 0.04 H (0.00-0.01) X 10*3/uL Toxic Granulation 2+ A Macrocytosis (manual) 2+ A Potassium 2.9 L (3.5-5.1) mmol/L Microbiology - Last 24 Hours (Table) 07/24/24 10:10 Stool Culture - Preliminary Stool 07/23/24 17:41 Blood Culture - Preliminary Blood Assessment and Plan (1) Adverse effect of chemotherapy Current Visit: Yes Status: Acute Priority: High Code(s): T45.1X5A - ADVERSE EFFECT OF ANTINEOPLASTIC AND IMMUNOSUP DRUGS, INIT SNOMED Code(s): 478148893 (2) Dehydration Current Visit: Yes Status: Acute Priority: High Code(s): E86.0 - DEHYDRATION SNOMED Code(s): 78892368 (3) Hypotension Current Visit: Yes Status: Acute Priority: High Code(s): I95.9 - HYPOTENSION, UNSPECIFIED SNOMED Code(s): 91636251 (4) Extensive stage primary small cell carcinoma of lung Current Visit: Yes Status: Acute Priority: High Code(s): C34.90 - MALIGNANT NEOPLASM OF UNSP PART OF UNSP BRONCHUS OR LUNG SNOMED Code(s): 738955273647989 Plan: N/V/D, hypotension: Represented to the hospital c/o intractable n/v/d. Recently discharged for the same, and states since discharge symptoms returned and progressively worsened -Given fluid bolus and solu-cortef with resolution of hypotension. -Chest x-ray negative for acute cardiopulmonary processes. Abdominal x-ray showing gaseous dilation of loops of bowel which is nonspecific, correlate for ileus versus small bowel obstruction. -CT abd/pelvis showing mild small bowel distention without focal transition point to suggest obstruction. Wall thickening invovling the distal terminal ileum likely representing infectious/inflammatory ileitis and reactive ileitis. 2 ill-defined hepatic lesions and increasing size of left adrenal gland 1.3 cm nodule -Clear liquid diet. Will slowly advance diet as symptoms improve -C- diff testing on 07/18 negative. Preliminary stool culture negative. Blood culture negative. Pt remains afebrile -ID consulted -Continues on IV abx and G-CSF. Goal of ANC > 1000. WBC improved today to 2.28. ANC 0.64, Hgb 7.9, plt 87 -Continue supportive care measures and IV fluids. Anti-diarrheals adjusted per ID -Daily CBC Metastatic small cell lung cancer: -History as dictated in the HPI -Currently on treatment with carboplatin and irinotecan, completing cycle 3, day 1 on 07/04. Day 8 of treatment was delayed by 1 week for neutropenia -Day 8 of cycle 3 scheduled for 07/18/2024 was not done due to noted hypotension and GI toxicity above -Treatment will be on hold until patient acutely recovers. Plan for dose reduction for future cycles
[2024-07-27] MEDS: HYDROcodone/APAP 5-325MG 1 EACH TAB PO PRN (20:36)
--- NOTE | 2024-07-27 21:44 | P.PN ---
Subjective Progress Note Date: 07/27/24 Principal diagnosis: Reason for follow-up is diarrhea/ileitis Patient is a 64-year-old female with a past medical history significant for coronary disease hypertension hyperlipidemia VA reflux in this patient also with a history of lung cancer for the patient has been on chemotherapy with admission in the hospital concerning for acute nausea vomiting and diarrhea patient did have a negative C. difficile on the last admission about a week ago with a CT abdominal pelvis did show some mild small bowel dilatation without focal transition point and possible terminal ileum ileitis. On today's evaluation that is 07/27/2024, Patient is afebrile this morning patient denies having any chest pain shortness of breath or cough, the patient is currently on room air, patient denies any nausea no vomiting abdominal pain has decreased and diarrhea has slowed a. Patient white count is 2.28 stool cultures currently pending Objective - Vital Signs Vital signs: Vital Signs Temp 97.6 F 07/27/24 19:49 Pulse 87 07/27/24 19:49 Resp 16 07/27/24 19:49 BP 135/82 07/27/24 19:49 Pulse Ox 98 07/27/24 19:49 FiO2 Intake & Output 07/27/24 07/27/24 07/28/24 06:59 18:59 06:59 Other: # Voids 1 3 - Exam GENERAL DESCRIPTION: Middle-age female lying in bed in no distress RESPIRATORY SYSTEM: Unlabored breathing , decreased breath sounds at bases HEART: S1 S2 regular rate and rhythm , ABDOMEN: Soft , no tenderness EXTREMITIES: No edema feet - Labs CBC & Chem 7: 07/27/24 06:28 07/27/24 16:37 Labs: Abnormal Lab Results - Last 24 Hours (Table) 07/27/24 07/27/24 07/27/24 Range/Units 06:28 06:28 16:37 WBC 2.28 L (4.50-10.00) X 10*3/uL RBC 2.32 L (4.10-5.20) X 10*6/uL Hgb 7.9 L (12.0-15.0) g/dL Hct 24.5 L (37.2-46.3) % MCV 105.6 H (80.0-97.0) FL MCH 34.1 H (27.0-32.0) pg RDW 16.9 H (11.5-14.5) % Plt Count 87 L (140-440) X 10*3/uL Neutrophils # (Manual) 0.64 L (1.80-7.70) X 10*3/uL NRBC/100 WBC Diff 0.08 H (0.00-0.01) X 10*3/uL Macrocytosis (manual) 2+ A Potassium 2.9 L 3.0 L (3.5-5.1) mmol/L Microbiology - Last 24 Hours (Table) 07/24/24 10:10 Stool Culture - Preliminary Stool 07/23/24 17:41 Blood Culture - Preliminary Blood Assessment and Plan (1) Ileitis, terminal Current Visit: Yes Status: Acute Code(s): K50.00 - CROHN'S DISEASE OF SMALL INTESTINE WITHOUT COMPLICATIONS SNOMED Code(s): 735856616 (2) Diarrhea Current Visit: No Status: Acute Code(s): R19.7 - DIARRHEA, UNSPECIFIED SNOMED Code(s): 13100407 (3) Leukopenia Current Visit: No Status: Acute Code(s): D72.819 - DECREASED WHITE BLOOD CELL COUNT, UNSPECIFIED SNOMED Code(s): 44207135 Plan: 1patient presented to hospital with recurrent episode of nausea vomiting and diarrhea in this patient who recently tested negative for C. difficile she did have CT of abdominal pelvis done on 07/24/2024 that has been suggestive of ileitis and question of infectious/inflammatory etiology 2-patient stool culture as well as blood culture currently pending 3-patient to continue with cefepime Flagyl and Questran for symptomatic relief of her diarrhea while waiting for cultures to be completed Dictation was produced using [employer] dictation software. please excuse any grammatical, word or spelling errors. Time with Patient: Less than 30
[2024-07-28] MEDS: POTASSIUM CHLORIDE ER 20 MEQ TAB.ER PO SCH (04:04)
[2024-07-28 08:33] LABS: ALT 13 U/L (8-44); AST 9 U/L (13-35); Albumin 2.9 g/dL (3.8-4.9); Albumin/Globulin Ratio 1.53 Ratio (1.60-3.17); Alkaline Phosphatase 53 U/L (41-126); Blood Urea Nitrogen 4.6 mg/dL (9.0-27.0); Carbon Dioxide 16.3 mmol/L (21.6-31.8); Chloride 112 mmol/L (96-109); Globulin 1.9 g/dL (1.6-3.3); Glucose 110 mg/dL (70-110); Potassium 3.3 mmol/L (3.5-5.5); Sodium 139 mmol/L (135-145); Total Bilirubin <0.2 mg/dL (0.3-1.2); Total Protein 4.8 g/dL (6.2-8.2)
[2024-07-28 09:28] LABS: Basophils # (M) 0.07 X 10*3/uL (0.00-0.10); Eosinophils # (M) 0.04 X 10*3/uL (0.04-0.35); HCT 24.4 % (37.2-46.3); HGB 7.8 g/dL (12.0-15.0); MCH 33.3 pg (27.0-32.0); MCV 104.3 FL (80.0-97.0); Macrocytosis (M) 2+; Mean Platelet Volume 10.6 FL (9.5-12.2); Metamyelocytes % 4 % (0-0); Myelocytes % 6 % (0-0); NRBC Per 100 WBC 0.07 X 10*3/uL (0.00-0.01); Neutrophils # (M) 1.38 X 10*3/uL (1.80-7.70); Neutrophils % (M) 39 %; Nucleated Red Blood Cells 2 /100 WBCS; Platelet Count 92 X 10*3/uL (140-440); RBC 2.34 X 10*6/uL (4.10-5.20); RDW 17.2 % (11.5-14.5); WBC 3.55 X 10*3/uL (4.50-10.00)
[2024-07-28] MEDS: 0.9% NACL WITH KCL 20 MEQ/L 1,000 ML IV SCH (13:28)
[2024-07-28] MEDS: LORazepam 2 MG/ML INJ IV SCH (17:11)
--- NOTE | 2024-07-28 19:31 | P.PN ---
Subjective Progress Note Date: 07/28/24 Principal diagnosis: gastroenteritis, In f/u today pt reports persistent diarrhea, vomiting has slowed down but now she is afraid to eat. No fever, oral irritation, SOB, abd is not tender. No other c/o, she is in good spirits Objective - Vital Signs Vital signs: Vital Signs Temp 97.8 F 07/28/24 13:36 Pulse 87 07/28/24 13:36 Resp 16 07/28/24 13:36 BP 101/70 07/28/24 13:36 Pulse Ox 98 07/28/24 13:36 FiO2 21 07/28/24 07:37 Intake & Output 07/27/24 07/28/24 07/28/24 18:59 06:59 18:59 Other: # Voids 3 1 - Constitutional General appearance: Present: average body habitus, cooperative, no acute distress - EENT Eyes: Present: anicteric sclerae, EOMI ENT: Present: hearing grossly normal - Respiratory Respiratory: bilateral: CTA - Cardiovascular Rhythm: regular Abnormal Heart Sounds: Absent: systolic murmur, diastolic murmur, rub, S3 Gallop, S4 Gallop, click, other - Peripheral edema leg Peripheral Edema: bilateral: None - Gastrointestinal General gastrointestinal: Present: tenderness (rebound LLQ) - Integumentary Integumentary: Present: normal - Neurologic Neurologic: Present: CNII-XII intact - Musculoskeletal Musculoskeletal: Present: generalized weakness, strength equal bilaterally - Psychiatric Psychiatric: Present: A&O x's 3, appropriate affect, intact judgment & insight - Labs CBC & Chem 7: 07/28/24 02:34 07/28/24 08:26 Labs: Abnormal Lab Results - Last 24 Hours (Table) 07/27/24 07/28/24 07/28/24 Range/Units 16:37 02:34 02:34 WBC 3.55 L (4.50-10.00) X 10*3/uL RBC 2.34 L (4.10-5.20) X 10*6/uL Hgb 7.8 L (12.0-15.0) g/dL Hct 24.4 L (37.2-46.3) % MCV 104.3 H (80.0-97.0) FL MCH 33.3 H (27.0-32.0) pg RDW 17.2 H (11.5-14.5) % Plt Count 92 L (140-440) X 10*3/uL Neutrophils # (Manual) 1.38 L (1.80-7.70) X 10*3/uL NRBC/100 WBC Diff 0.07 H (0.00-0.01) X 10*3/uL Macrocytosis (manual) 2+ A Potassium 3.0 L 3.3 L (3.5-5.1) mmol/L Chloride 112 H (96-109) mmol/L Carbon Dioxide 16.3 L (21.6-31.8) mmol/L BUN 4.6 L (9.0-27.0) mg/dL Creatinine 0.5 L (0.6-1.5) mg/dL BUN/Creatinine Ratio 9.20 L (12.00-20.00) Ratio Calcium 8.0 L (8.7-10.3) mg/dL Total Bilirubin <0.2 L (0.3-1.2) mg/dL AST 9 L (13-35) U/L Total Protein 4.8 L (6.2-8.2) g/dL Albumin 2.9 L (3.8-4.9) g/dL Albumin/Globulin Ratio 1.53 L (1.60-3.17) Ratio 07/28/24 07/28/24 Range/Units 02:34 08:26 WBC (4.50-10.00) X 10*3/uL RBC (4.10-5.20) X 10*6/uL Hgb (12.0-15.0) g/dL Hct (37.2-46.3) % MCV (80.0-97.0) FL MCH (27.0-32.0) pg RDW (11.5-14.5) % Plt Count (140-440) X 10*3/uL Neutrophils # (Manual) (1.80-7.70) X 10*3/uL NRBC/100 WBC Diff (0.00-0.01) X 10*3/uL Macrocytosis (manual) Potassium 3.1 L 3.2 L (3.5-5.1) mmol/L Chloride (96-109) mmol/L Carbon Dioxide (21.6-31.8) mmol/L BUN (9.0-27.0) mg/dL Creatinine (0.6-1.5) mg/dL BUN/Creatinine Ratio (12.00-20.00) Ratio Calcium (8.7-10.3) mg/dL Total Bilirubin (0.3-1.2) mg/dL AST (13-35) U/L Total Protein (6.2-8.2) g/dL Albumin (3.8-4.9) g/dL Albumin/Globulin Ratio (1.60-3.17) Ratio Microbiology - Last 24 Hours (Table) 07/24/24 10:10 Stool Culture - Final Stool Assessment and Plan (1) Diarrhea Current Visit: Yes Status: Acute Priority: High Code(s): R19.7 - DIARRHEA, UNSPECIFIED SNOMED Code(s): 43767811 (2) Small cell lung carcinoma Current Visit: Yes Status: Acute Priority: High Code(s): C34.90 - MALIGNANT NEOPLASM OF UNSP PART OF UNSP BRONCHUS OR LUNG SNOMED Code(s): 442213064 Plan: N/V/D, hypotension -Given fluid bolus and solu-cortef with resolution of hypotension. -Pt reporting anticipatory N,V-wants to eat but then does not want to for fear of vomiting. Ativan ordered for anticipatory N,V. Will see if this improves -Possible ileitis on imaging. ID following. 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 -C- diff testing on 07/18 negative but, pt reported green diarrhea, so, tesing ordered again, neg 07/28. Antidiarrheals ordered. Chemo induced pancytopenia -WBC 3.5, ANV 1.38. Give dose of GCSF today then stop -Hgb stable at 7.8, transfuse for a Hgb 7 or if symptomatic -P 92,000 today, showing some slight recovery Metastatic small cell lung cancer -Currently on treatment with carboplatin and irinotecan, completing cycle 3, day 1 on 07/04. Treatment will cont to be delayed until pt has recovered and rehabililtated from her acute conditions. Dose reduction has already been ordered
--- NOTE | 2024-07-28 22:04 | P.PN ---
Subjective Progress Note Date: 07/28/24 Principal diagnosis: Reason for follow-up is diarrhea/ileitis Patient is a 64-year-old female with a past medical history significant for coronary disease hypertension hyperlipidemia AR reflux in this patient also with a history of lung cancer for the patient has been on chemotherapy with admission in the hospital concerning for acute nausea vomiting and diarrhea patient did have a negative C. difficile on the last admission about a week ago with a CT abdominal pelvis did show some mild small bowel dilatation without focal transition point and possible terminal ileum ileitis. On today's evaluation that is 07/28/2024,the patient denies any fever or any chills, patient is breathing comfortably on room air, the patient denies chest pain shortness of breath and no significant cough, patient still complaining of lower abdominal discomfort and multiple loose stool denies any blood or mucus in the stool no vomiting. Patient white count is 3.55 creatinine is 0.5 stool culture came back negative Objective - Vital Signs Vital signs: Vital Signs Temp 98 F 07/28/24 08:00 Pulse 80 07/28/24 08:00 Resp 16 07/28/24 08:00 BP 124/72 07/28/24 08:00 Pulse Ox 99 07/28/24 08:00 FiO2 21 07/28/24 07:37 Intake & Output 07/27/24 07/28/24 07/28/24 18:59 06:59 18:59 Other: # Voids 3 1 - Exam GENERAL DESCRIPTION: Middle-age female lying in bed in no distress RESPIRATORY SYSTEM: Unlabored breathing , decreased breath sounds at bases HEART: S1 S2 regular rate and rhythm , ABDOMEN: Soft , no tenderness EXTREMITIES: No edema feet - Labs CBC & Chem 7: 07/28/24 02:34 07/28/24 08:26 Labs: Abnormal Lab Results - Last 24 Hours (Table) 07/27/24 07/27/24 07/28/24 Range/Units 06:28 16:37 02:34 WBC 2.28 L 3.55 L (4.50-10.00) X 10*3/uL RBC 2.32 L 2.34 L (4.10-5.20) X 10*6/uL Hgb 7.9 L 7.8 L (12.0-15.0) g/dL Hct 24.5 L 24.4 L (37.2-46.3) % MCV 105.6 H 104.3 H (80.0-97.0) FL MCH 34.1 H 33.3 H (27.0-32.0) pg RDW 16.9 H 17.2 H (11.5-14.5) % Plt Count 87 L 92 L (140-440) X 10*3/uL Neutrophils # (Manual) 0.64 L 1.38 L (1.80-7.70) X 10*3/uL NRBC/100 WBC Diff 0.08 H 0.07 H (0.00-0.01) X 10*3/uL Macrocytosis (manual) 2+ A 2+ A Potassium 3.0 L (3.5-5.1) mmol/L Chloride (96-109) mmol/L Carbon Dioxide (21.6-31.8) mmol/L BUN (9.0-27.0) mg/dL Creatinine (0.6-1.5) mg/dL BUN/Creatinine Ratio (12.00-20.00) Ratio Calcium (8.7-10.3) mg/dL Total Bilirubin (0.3-1.2) mg/dL AST (13-35) U/L Total Protein (6.2-8.2) g/dL Albumin (3.8-4.9) g/dL Albumin/Globulin Ratio (1.60-3.17) Ratio 07/28/24 07/28/24 07/28/24 Range/Units 02:34 02:34 08:26 WBC (4.50-10.00) X 10*3/uL RBC (4.10-5.20) X 10*6/uL Hgb (12.0-15.0) g/dL Hct (37.2-46.3) % MCV (80.0-97.0) FL MCH (27.0-32.0) pg RDW (11.5-14.5) % Plt Count (140-440) X 10*3/uL Neutrophils # (Manual) (1.80-7.70) X 10*3/uL NRBC/100 WBC Diff (0.00-0.01) X 10*3/uL Macrocytosis (manual) Potassium 3.3 L 3.1 L 3.2 L (3.5-5.1) mmol/L Chloride 112 H (96-109) mmol/L Carbon Dioxide 16.3 L (21.6-31.8) mmol/L BUN 4.6 L (9.0-27.0) mg/dL Creatinine 0.5 L (0.6-1.5) mg/dL BUN/Creatinine Ratio 9.20 L (12.00-20.00) Ratio Calcium 8.0 L (8.7-10.3) mg/dL Total Bilirubin <0.2 L (0.3-1.2) mg/dL AST 9 L (13-35) U/L Total Protein 4.8 L (6.2-8.2) g/dL Albumin 2.9 L (3.8-4.9) g/dL Albumin/Globulin Ratio 1.53 L (1.60-3.17) Ratio Microbiology - Last 24 Hours (Table) 07/24/24 10:10 Stool Culture - Final Stool Assessment and Plan (1) Ileitis, terminal Current Visit: Yes Status: Acute Code(s): K50.00 - CROHN'S DISEASE OF SMALL INTESTINE WITHOUT COMPLICATIONS SNOMED Code(s): 430342338 (2) Diarrhea Current Visit: Yes Status: Acute Priority: High Code(s): R19.7 - DIARRHEA, UNSPECIFIED SNOMED Code(s): 93746860 (3) Leukopenia Current Visit: No Status: Acute Code(s): D72.819 - DECREASED WHITE BLOOD CELL COUNT, UNSPECIFIED SNOMED Code(s): 34294683 Plan: 1patient presented to hospital with recurrent episode of nausea vomiting and diarrhea in this patient who recently tested negative for C. difficile she did have CT of abdominal pelvis done on 07/24/2024 that has been suggestive of ileitis and question of infectious/inflammatory etiology 2-patient stool culture came back negative we will check a stool for C. difficile which if negative for more aggressive antidiarrheal medication and may benefit from possible colonoscopy to rule out other etiologies 3-patient to continue with cefepime Flagyl and Questran for symptomatic relief of her diarrhea Dictation was produced using [employer] dictation software. please excuse any g rammatical, word or spelling errors. Time with Patient: Less than 30
--- NOTE | 2024-07-29 01:24 | PN ---
PROGRESS NOTE DATE OF SERVICE: 07/28/2024 SUBJECTIVE: This is a 64-year-old woman, who was admitted with significant GI symptoms, had persistent diarrhea. The patient also had intractable nausea and vomiting also. The patient also had dehydration. The patient also had pancytopenia secondary to chemotherapy. She is being closely monitored. PAST MEDICAL HISTORY: Reviewed. REVIEW OF SYSTEMS: A 14-point review is negative except as mentioned earlier. CURRENT MEDICATIONS: Reviewed include Ventolin. Dose and rest of medications reviewed. PHYSICAL EXAMINATION: VITAL SIGNS: Pulse 80, blood pressure 124/70, respirations 16. HEENT: Conjunctivae normal. CARDIOVASCULAR: S1, S2. RESPIRATIONS: Breath sounds diminished at the bases. A few rhonchi. No crackles. ABDOMEN: Soft, mild diffuse discomfort. LEGS: No edema. NERVOUS SYSTEM: Nonfocal. LABORATORY DATA: WBC 3.5. The rest of the labs are noted. ASSESSMENT: 1. Intractable nausea, vomiting, diarrhea, possibly secondary to chemotherapy, rule out sepsis. 2. Acute ileitis. 3. Dehydration. 4. Metastatic small-cell cancer, on treatment. 5. Hypertension. 6. Multiple complex medical issues. RECOMMENDATIONS: Recommend to continue current management and continue symptomatic treatment. Otherwise, abdominopelvic CAT scan done at the time of admission showed mild small bowel dilatation without any focal transition. There is a wall thickening with distal ileum. There is also #1 possibility of ileitis. I would also recommend empiric antibiotics, IV antibiotics. If it is okay with empiric antibiotics, which needs to be continued. The patient is on cefepime, Flagyl, and Questran. Prognosis guarded. Further recommendations to follow. Cultures are negative so far. MMODL / IJN: [id number] /
[2024-07-29 05:45] LABS: Cryptosporidium Antigen Positive (Negative)
[2024-07-29 09:26] LABS: BUN/Creat Ratio <8.75 Ratio (12.00-20.00); Blood Urea Nitrogen <3.5 mg/dL (9.0-27.0); Calcium 7.8 mg/dL (8.7-10.3); Carbon Dioxide 16.3 mmol/L (21.6-31.8); Chloride 115 mmol/L (96-109); Glucose 84 mg/dL (70-110); Potassium 3.2 mmol/L (3.5-5.5); Sodium 141 mmol/L (135-145)
[2024-07-29 10:18] LABS: Band Neutrophils % 25 %; Basophils # (M) 0 X 10*3/uL (0.00-0.10); Eosinophils # (M) 0.12 X 10*3/uL (0.04-0.35); HCT 25.3 % (37.2-46.3); Lymphocytes # (M) 0.43 X 10*3/uL (0.90-5.00); MCH 34.3 pg (27.0-32.0); MCHC 31.6 g/dL (32.0-37.0); MCV 108.6 FL (80.0-97.0); Macrocytosis (M) 2+; Mean Platelet Volume 10.8 FL (9.5-12.2); Metamyelocytes % 2 % (0-0); Monocytes # (M) 0.55 X 10*3/uL (0.20-1.00); Myelocytes % 4 % (0-0); NRBC Per 100 WBC 0.12 X 10*3/uL (0.00-0.01); Neutrophils # (M) 4.64 X 10*3/uL (1.80-7.70); Neutrophils % (M) 51 %; Nucleated Red Blood Cells 3 /100 WBCS; Platelet Count 99 X 10*3/uL (140-440); RBC 2.33 X 10*6/uL (4.10-5.20); WBC 6.11 X 10*3/uL (4.50-10.00)
--- NOTE | 2024-07-29 13:29 | P.PN ---
Subjective Progress Note Date: 07/29/24 Principal diagnosis: Reason for follow-up is diarrhea/ileitis Patient is a 64-year-old female with a past medical history significant for coronary disease hypertension hyperlipidemia NC reflux in this patient also with a history of lung cancer for the patient has been on chemotherapy with admission in the hospital concerning for acute nausea vomiting and diarrhea patient did have a negative C. difficile on the last admission about a week ago with a CT abdominal pelvis did show some mild small bowel dilatation without focal transition point and possible terminal ileum ileitis. On today's evaluation that is 07/29/2024,the patient remains to be afebrile, patient is on room air not requiring supplemental oxygen and denies any shortness of breath no chest pain or cough.Patient denies having any nausea or vomiting, still some lower abdominal discomfort and diarrhea but no worsening. Patient white count 6.11 creatinine 0.4 stool cryptosporidium antigen came back positive Objective - Vital Signs Vital signs: Vital Signs Temp 97.9 F 07/29/24 07:48 Pulse 81 07/29/24 07:48 Resp 19 07/29/24 07:48 BP 116/70 07/29/24 07:48 Pulse Ox 98 07/29/24 07:48 FiO2 21 07/28/24 07:37 Intake & Output 07/28/24 07/29/24 07/29/24 18:59 06:59 18:59 Intake Total 1080 1120 Balance 1080 1120 Intake: Intake, IV Titration 1000 Amount Cefepime 2 gm In Sodium 100 Chloride 0.9% 100 ml @ 25 mls/hr IVPB Q8H [facility] Rx#: [id number] Sodium Chloride 0.9% 1, 900 000 ml @ 75 mls/hr IV . [id number] [facility] Rx#:[id number] Oral 1080 120 Other: # Voids 3 1 # Bowel Movements 2 1 - Exam GENERAL DESCRIPTION: Middle-age female lying in bed in no distress RESPIRATORY SYSTEM: Unlabored breathing , decreased breath sounds at bases HEART: S1 S2 regular rate and rhythm , ABDOMEN: Soft , no tenderness EXTREMITIES: No edema feet - Labs CBC & Chem 7: 07/29/24 04:40 07/29/24 04:40 Labs: Abnormal Lab Results - Last 24 Hours (Table) 07/28/24 07/28/24 07/29/24 Range/Units 19:30 19:30 04:40 RBC 2.33 L (4.10-5.20) X 10*6/uL Hgb 8.0 L (12.0-15.0) g/dL Hct 25.3 L (37.2-46.3) % MCV 108.6 H (80.0-97.0) FL MCH 34.3 H (27.0-32.0) pg MCHC 31.6 L (32.0-37.0) g/dL RDW 18.0 H (11.5-14.5) % Plt Count 99 L (140-440) X 10*3/uL Lymphocytes # (Manual) 0.43 L (0.90-5.00) X 10*3/uL NRBC/100 WBC Diff 0.12 H (0.00-0.01) X 10*3/uL Macrocytosis (manual) 2+ A Potassium (3.5-5.5) mmol/L Chloride (96-109) mmol/L Carbon Dioxide (21.6-31.8) mmol/L BUN (9.0-27.0) mg/dL Creatinine (0.6-1.5) mg/dL BUN/Creatinine Ratio (12.00-20.00) Ratio Calcium (8.7-10.3) mg/dL Stool Lactoferrin Positive A (Negative) Stl Cryptosporidium Ag Positive A (Negative) 07/29/24 Range/Units 04:40 RBC (4.10-5.20) X 10*6/uL Hgb (12.0-15.0) g/dL Hct (37.2-46.3) % MCV (80.0-97.0) FL MCH (27.0-32.0) pg MCHC (32.0-37.0) g/dL RDW (11.5-14.5) % Plt Count (140-440) X 10*3/uL Lymphocytes # (Manual) (0.90-5.00) X 10*3/uL NRBC/100 WBC Diff (0.00-0.01) X 10*3/uL Macrocytosis (manual) Potassium 3.2 L (3.5-5.5) mmol/L Chloride 115 H (96-109) mmol/L Carbon Dioxide 16.3 L (21.6-31.8) mmol/L BUN <3.5 L (9.0-27.0) mg/dL Creatinine 0.4 L (0.6-1.5) mg/dL BUN/Creatinine Ratio <8.75 L (12.00-20.00) Ratio Calcium 7.8 L (8.7-10.3) mg/dL Stool Lactoferrin (Negative) Stl Cryptosporidium Ag (Negative) Microbiology - Last 24 Hours (Table) 07/28/24 12:57 Blood Culture Gram Stain - Preliminary Blood 07/23/24 17:41 Blood Culture - Final Blood Assessment and Plan (1) Ileitis, terminal Current Visit: Yes Status: Acute Code(s): K50.00 - CROHN'S DISEASE OF SMALL INTESTINE WITHOUT COMPLICATIONS SNOMED Code(s): 915796404 (2) Diarrhea Current Visit: Yes Status: Acute Priority: High Code(s): R19.7 - DIARRHEA, UNSPECIFIED SNOMED Code(s): 58437797 (3) Leukopenia Current Visit: No Status: Acute Code(s): D72.819 - DECREASED WHITE BLOOD CELL COUNT, UNSPECIFIED SNOMED Code(s): 02018488 (4) Cryptosporidiosis Current Visit: Yes Status: Acute Code(s): A07.2 - CRYPTOSPORIDIOSIS SNOMED Code(s): 978201487 Plan: 1patient presented to hospital with recurrent episode of nausea vomiting and diarrhea in this patient who recently tested negative for C. difficile she did have CT of abdominal pelvis done on 07/24/2024 that has been suggestive of ileitis and question of infectious/inflammatory etiology 2-patient stool culture came back negative we will check a stool for C. difficile negative as well stool cryptosporidium antigen came back positive 3patient will be started on Nitazoxanide 500 mg twice daily once available pharmacy is working on getting medication arranged for tomorrow morning Dictation was produced using [employer] software. please excuse any grammatical, word or spelling errors. Time with Patient: Less than 30
[2024-07-29] MEDS: POTASSIUM CHLORIDE ER 20 MEQ TAB.ER PO SCH (15:53)
--- NOTE | 2024-07-29 18:16 | P.PN ---
Subjective Progress Note Date: 07/29/24 Reporting some improvement in diarrhea today. Denies n/v this morning. Tolerating diet but having early satiety and diminished appetite. Stool culture positive for cryptosporidium, abx coverage changed to cefazolin and nitazoxanide. White counts recovered, WBC 6.1, ANC 4.64. Remains afebrile Objective - Vital Signs Vital signs: Vital Signs Temp 97.9 F 07/29/24 07:48 Pulse 81 07/29/24 07:48 Resp 19 07/29/24 07:48 BP 116/70 07/29/24 07:48 Pulse Ox 98 07/29/24 07:48 FiO2 21 07/28/24 07:37 Intake & Output 07/28/24 07/29/24 07/29/24 18:59 06:59 18:59 Intake Total 1080 1120 Balance 1080 1120 Intake: Intake, IV Titration 1000 Amount Cefepime 2 gm In Sodium 100 Chloride 0.9% 100 ml @ 25 mls/hr IVPB Q8H [facility] Rx#: [id number] Sodium Chloride 0.9% 1, 900 000 ml @ 75 mls/hr IV . [id number] [facility] Rx#:[id number] Oral 1080 120 Other: # Voids 3 1 # Bowel Movements 2 1 - Constitutional General appearance: Present: average body habitus, no acute distress - EENT Eyes: Present: anicteric sclerae, EOMI ENT: Present: hearing grossly normal - Respiratory Details: breathing is even and unlabored - Cardiovascular Details: skin warm and dry - Gastrointestinal Gastrointestinal Comment(s): mild lower abd tenderness General gastrointestinal: Present: soft - Integumentary Integumentary: Absent: cyanotic - Psychiatric Psychiatric: Present: A&O x's 3 - Labs CBC & Chem 7: 07/29/24 04:40 07/29/24 04:40 Labs: Abnormal Lab Results - Last 24 Hours (Table) 07/28/24 07/28/24 07/29/24 Range/Units 19:30 19:30 04:40 RBC 2.33 L (4.10-5.20) X 10*6/uL Hgb 8.0 L (12.0-15.0) g/dL Hct 25.3 L (37.2-46.3) % MCV 108.6 H (80.0-97.0) FL MCH 34.3 H (27.0-32.0) pg MCHC 31.6 L (32.0-37.0) g/dL RDW 18.0 H (11.5-14.5) % Plt Count 99 L (140-440) X 10*3/uL Lymphocytes # (Manual) 0.43 L (0.90-5.00) X 10*3/uL NRBC/100 WBC Diff 0.12 H (0.00-0.01) X 10*3/uL Macrocytosis (manual) 2+ A Potassium (3.5-5.5) mmol/L Chloride (96-109) mmol/L Carbon Dioxide (21.6-31.8) mmol/L BUN (9.0-27.0) mg/dL Creatinine (0.6-1.5) mg/dL BUN/Creatinine Ratio (12.00-20.00) Ratio Calcium (8.7-10.3) mg/dL Stool Lactoferrin Positive A (Negative) Stl Cryptosporidium Ag Positive A (Negative) 07/29/24 Range/Units 04:40 RBC (4.10-5.20) X 10*6/uL Hgb (12.0-15.0) g/dL Hct (37.2-46.3) % MCV (80.0-97.0) FL MCH (27.0-32.0) pg MCHC (32.0-37.0) g/dL RDW (11.5-14.5) % Plt Count (140-440) X 10*3/uL Lymphocytes # (Manual) (0.90-5.00) X 10*3/uL NRBC/100 WBC Diff (0.00-0.01) X 10*3/uL Macrocytosis (manual) Potassium 3.2 L (3.5-5.5) mmol/L Chloride 115 H (96-109) mmol/L Carbon Dioxide 16.3 L (21.6-31.8) mmol/L BUN <3.5 L (9.0-27.0) mg/dL Creatinine 0.4 L (0.6-1.5) mg/dL BUN/Creatinine Ratio <8.75 L (12.00-20.00) Ratio Calcium 7.8 L (8.7-10.3) mg/dL Stool Lactoferrin (Negative) Stl Cryptosporidium Ag (Negative) Microbiology - Last 24 Hours (Table) 07/23/24 17:41 Blood Culture - Final Blood 07/24/24 10:10 Stool Culture - Final Stool Assessment and Plan (1) Adverse effect of chemotherapy Current Visit: Yes Status: Acute Priority: High Code(s): T45.1X5A - ADVERSE EFFECT OF ANTINEOPLASTIC AND IMMUNOSUP DRUGS, INIT SNOMED Code(s): 692326164 (2) Dehydration Current Visit: Yes Status: Acute Priority: High Code(s): E86.0 - DEHYDRATION SNOMED Code(s): 60607841 (3) Hypotension Current Visit: Yes Status: Acute Priority: High Code(s): I95.9 - HYPOTENSION, UNSPECIFIED SNOMED Code(s): 35624564 (4) Extensive stage primary small cell carcinoma of lung Current Visit: Yes Status: Acute Priority: High Code(s): C34.90 - MALIGNANT NEOPLASM OF UNSP PART OF UNSP BRONCHUS OR LUNG SNOMED Code(s): 705766208823238 Plan: N/V/D, hypotension -Given fluid bolus and solu-cortef with resolution of hypotension. -Pt reporting anticipatory N,V-wants to eat but then does not want to for fear of vomiting. Ativan ordered for anticipatory N,V. Reports improvement with addition of Ativan -Possible ileitis on imaging. ID following. Pt is on IV abx -Tolerating liquid diet but, do not advance-persisting but improved lower abd tenderness noted. If continues to show improvement, will start full liquids in AM -C- diff testing on 07/18 negative. Repeat c-diff on 07/28 negative. Stool culture positive for cryptosporidium, abx coverage changed to cefazolin and nitazoxanide. Chemo induced pancytopenia -White counts recovered. S/p 6 doses G-CSF. WBC 6.1, ANC 4.64. -Hgb stable at 8.0, transfuse for a Hgb 7 or if symptomatic -Plt 99,000 today, showing slight recovery Metastatic small cell lung cancer -Currently on treatment with carboplatin and irinotecan, completing cycle 3, day 1 on 07/04. Treatment will cont to be delayed until pt has recovered and rehabilitated from her acute conditions. Will f/u on ID abx recommendations. Dose reduction has already been ordered
[2024-07-30] MEDS: LORazepam 2 MG/ML INJ IV SCH (00:07)
--- NOTE | 2024-07-30 04:05 | PN ---
PROGRESS NOTE DATE OF SERVICE: 07/29/2024 SUBJECTIVE: This is a 64-year-old woman, who was admitted with constant unrelenting diarrhea, had cryptosporidium positive from the stool. The patient had ileal thickening and the patient is started on medications per ID. There is no history of any fever, or rigors. PAST MEDICAL HISTORY: Reviewed. REVIEW OF SYSTEMS: A 14-point review is negative except as mentioned earlier. MEDICATIONS: Reviewed. PHYSICAL EXAMINATION: VITAL SIGNS: Pulse is 79, blood pressure 100/58, respirations 18. HEENT: Conjunctivae normal. CARDIOVASCULAR: S1, S2. RESPIRATIONS: Breath sounds diminished at the bases. ABDOMEN: Soft, mild diffuse tenderness. LEGS: No edema. NERVOUS SYSTEM: Nonfocal. LABORATORY DATA: Hemoglobin 8. Rest of the labs are noted. ASSESSMENT: 1. Intractable nausea, vomiting, diarrhea, possibly secondary to cryptosporidiosis in a patient with chemotherapy and immunosuppression. 2. Acute ileitis. 3. Dehydration. 4. Metastatic small-cell cancer, on treatment. 5. Hypertension. 6. Multiple complex medical issues. RECOMMENDATIONS: Recommend to continue current medications. Continue specific antiparasitic treatment. Repeat labs. Otherwise, closely follow with Infectious Disease and Hematology, Oncology. Guarded prognosis because of multiple complex medical issues. Continue with hydration. Replace lytes. Further recommendations to follow. MMODL / IJN: [id number] /
[2024-07-30 08:48] LABS: BUN/Creat Ratio <8.75 Ratio (12.00-20.00); Blood Urea Nitrogen <3.5 mg/dL (9.0-27.0); Calcium 7.6 mg/dL (8.7-10.3); Carbon Dioxide 18.1 mmol/L (21.6-31.8); Chloride 112 mmol/L (96-109); Glucose 87 mg/dL (70-110); Sodium 141 mmol/L (135-145)
[2024-07-30 09:06] LABS: Basophils # (M) 0.15 X 10*3/uL (0.00-0.10); Eosinophils # (M) 0 X 10*3/uL (0.04-0.35); HCT 24.8 % (37.2-46.3); HGB 7.9 g/dL (12.0-15.0); Lymphocytes # (M) 1.38 X 10*3/uL (0.90-5.00); MCH 34.1 pg (27.0-32.0); MCHC 31.9 g/dL (32.0-37.0); MCV 106.9 FL (80.0-97.0); Metamyelocytes % 1 % (0-0); Myelocytes % 1 % (0-0); NRBC Per 100 WBC 0.11 X 10*3/uL (0.00-0.01); Neutrophils # (M) 4.72 X 10*3/uL (1.80-7.70); Neutrophils % (M) 65 %; Nucleated Red Blood Cells 2 /100 WBCS; Platelet Count 107 X 10*3/uL (140-440); Promyelocytes # (M) 0.07 k/uL (0); Promyelocytes % 1 %; RBC 2.32 X 10*6/uL (4.10-5.20); RDW 17.7 % (11.5-14.5); WBC 7.26 X 10*3/uL (4.50-10.00)
--- NOTE | 2024-07-30 12:43 | P.PN ---
Subjective Progress Note Date: 07/30/24 Reporting improvement in diarrhea today, had 2 episodes this morning. Had some nausea with breakfast, used anti-emetic with resolution of symptoms. Denies vomiting. No abd pain with eating. Was able to finish her breakfast. Continues abx, remains afebrile Objective - Vital Signs Vital signs: Vital Signs Temp 98.4 F 07/30/24 07:15 Pulse 94 07/30/24 07:15 Resp 16 07/30/24 07:15 BP 148/81 07/30/24 07:15 Pulse Ox 99 07/30/24 07:15 FiO2 21 07/28/24 07:37 Intake & Output 07/29/24 07/30/24 07/30/24 18:59 06:59 18:59 Intake Total 780 60 Balance 780 60 Weight 77.5 kg Intake: Oral 780 60 Other: Voiding Method Diaper Incontinent # Voids 2 3 - Constitutional General appearance: Present: average body habitus, no acute distress - EENT Eyes: Present: anicteric sclerae, EOMI ENT: Present: hearing grossly normal - Respiratory Details: breathing is even and unlabored - Cardiovascular Details: skin warm and dry - Gastrointestinal Gastrointestinal Comment(s): mild tenderness in RLQ, 2/10, no guarding General gastrointestinal: Present: soft. Absent: distended - Integumentary Integumentary: Absent: cyanotic, jaundiced - Musculoskeletal Musculoskeletal: Present: strength equal bilaterally - Psychiatric Psychiatric: Present: A&O x's 3 - Labs CBC & Chem 7: 07/30/24 05:27 07/30/24 05:27 Labs: Abnormal Lab Results - Last 24 Hours (Table) 07/30/24 07/30/24 Range/Units 05:27 05:27 RBC 2.32 L (4.10-5.20) X 10*6/uL Hgb 7.9 L (12.0-15.0) g/dL Hct 24.8 L (37.2-46.3) % MCV 106.9 H (80.0-97.0) FL MCH 34.1 H (27.0-32.0) pg MCHC 31.9 L (32.0-37.0) g/dL RDW 17.7 H (11.5-14.5) % Plt Count 107 L (140-440) X 10*3/uL Eosinophils # (Manual) 0 L (0.04-0.35) X 10*3/uL Basophils # (Manual) 0.15 H (0.00-0.10) X 10*3/uL NRBC/100 WBC Diff 0.11 H (0.00-0.01) X 10*3/uL Potassium 3.0 L (3.5-5.5) mmol/L Chloride 112 H (96-109) mmol/L Carbon Dioxide 18.1 L (21.6-31.8) mmol/L BUN <3.5 L (9.0-27.0) mg/dL Creatinine 0.4 L (0.6-1.5) mg/dL BUN/Creatinine Ratio <8.75 L (12.00-20.00) Ratio Calcium 7.6 L (8.7-10.3) mg/dL Microbiology - Last 24 Hours (Table) 07/28/24 12:57 Blood Culture Gram Stain - Preliminary Blood Blood Culture - Preliminary Staphylococcus hominis Molecular ID Assessment and Plan (1) Adverse effect of chemotherapy Current Visit: Yes Status: Acute Priority: High Code(s): T45.1X5A - ADVERSE EFFECT OF ANTINEOPLASTIC AND IMMUNOSUP DRUGS, INIT SNOMED Code(s): 875281717 (2) Dehydration Current Visit: Yes Status: Acute Priority: High Code(s): E86.0 - DEHYDRATION SNOMED Code(s): 74776116 (3) Hypotension Current Visit: Yes Status: Acute Priority: High Code(s): I95.9 - HYPOTENSION, UNSPECIFIED SNOMED Code(s): 07723562 (4) Extensive stage primary small cell carcinoma of lung Current Visit: Yes Status: Acute Priority: High Code(s): C34.90 - MALIGNANT NEOPLASM OF UNSP PART OF UNSP BRONCHUS OR LUNG SNOMED Code(s): 862028323369765 Plan: N/V/D, hypotension -Given fluid bolus and solu-cortef with resolution of hypotension. -Pt reporting anticipatory N,V-wants to eat but then does not want to for fear of vomiting. Ativan ordered for anticipatory N,V. Reports improvement with addition of Ativan -Possible ileitis on imaging -Tolerating liquid diet, symptoms slowly improving. Will advance diet to full l iquids today. Instructed pt to notify RN if symptoms worsen with diet change -C- diff testing on 07/18 negative. Repeat c-diff on 07/28 negative. Stool culture positive for cryptosporidium. Blood culture positive for staph hominis. Abx coverage changed to cefazolin and nitazoxanide. ID following Chemo induced pancytopenia -White counts recovered. S/p 6 doses G-CSF. WBC 7.2, ANC 4.7 -Hgb stable at 7.9, transfuse for a Hgb 7 or if symptomatic -Plt 107,000 today, showing slight recovery Metastatic small cell lung cancer -Currently on treatment with carboplatin and irinotecan, completing cycle 3, day 1 on 07/04. Treatment will cont to be delayed until pt has recovered and rehabilitated from her acute conditions. Will f/u on ID abx recommendations. Dose reduction has already been ordered
[2024-07-30] MEDS ORDERED: Magnesium Replacement Protocol 1 EACH MISC MISCELLANE PRN (14:14)
[2024-07-30] MEDS ORDERED: Potassium Replacement Protocol 1 EACH MISC MISCELLANE PRN (14:40)
[2024-07-30] MEDS: POTASSIUM CHLORIDE ER 20 MEQ TAB.ER PO SCH ×2 (15:33→20:54)
--- NOTE | 2024-07-30 16:54 | PN ---
PROGRESS NOTE DATE OF SERVICE: 07/30/2024 SUBJECTIVE: This is a 64-year-old woman, who was admitted with significant diarrhea possibly secondary to cryptosporidium in the background of severe immunosuppression-induced chemotherapy and recommended Nitazoxanide 500 mg p.o. daily by Infectious Disease. Pharmacy is working on it. No chest pain. No palpitation. OBJECTIVE: VITAL SIGNS: Pulse 90, blood pressure 111/76, respirations 14. CHEST: Clear to auscultation. CARDIOVASCULAR: S1, S2. ABDOMEN: Soft, mild diffuse tenderness. LEGS: No edema. NERVOUS SYSTEM: No focal deficit. LABORATORY DATA: WBC 7.9, potassium is 3. ASSESSMENT: 1. Intractable nausea, vomiting, diarrhea, possibly secondary to cryptosporidiosis in an immunocompromised patient secondary to chemotherapy. 2. Acute ileitis. 3. Dehydration. 4. Metastatic small-cell cancer, on treatment. 5. Hypertension. 6. Multiple complex medical issues. RECOMMENDATIONS AND DISCUSSION: I recommend to continue current medications. Continue with Nitazoxanide. Otherwise, symptomatic treatment. Potassium supplementation. Guarded prognosis. Further recommendations to follow. MMODL / IJN: [id number] /
[2024-07-31] MEDS: POTASSIUM CHLORIDE ER 20 MEQ TAB.ER PO SCH (02:35)
[2024-07-31 08:37] LABS: HGB 8.1 g/dL (12.0-15.0); MCH 34.3 pg (27.0-32.0); MCHC 32.4 g/dL (32.0-37.0); MCV 105.9 FL (80.0-97.0); Mean Platelet Volume 10.8 FL (9.5-12.2); NRBC Per 100 WBC 0.08 X 10*3/uL (0.00-0.01); Platelet Count 128 X 10*3/uL (140-440); RBC 2.36 X 10*6/uL (4.10-5.20); RDW 17.9 % (11.5-14.5); WBC 5.98 X 10*3/uL (4.50-10.00)
[2024-07-31 08:53] LABS: Magnesium 1.2 mg/dL (1.5-2.4)
[2024-07-31 09:00] LABS: ALT 8 U/L (8-44); AST 11 U/L (13-35); Albumin 2.7 g/dL (3.8-4.9); Albumin/Globulin Ratio 1.35 Ratio (1.60-3.17); Alkaline Phosphatase 62 U/L (41-126); BUN/Creat Ratio <7.00 Ratio (12.00-20.00); Blood Urea Nitrogen <3.5 mg/dL (9.0-27.0); Calcium 7.7 mg/dL (8.7-10.3); Carbon Dioxide 20.8 mmol/L (21.6-31.8); Chloride 113 mmol/L (96-109); Glucose 88 mg/dL (70-110); Potassium 4.1 mmol/L (3.5-5.5); Sodium 143 mmol/L (135-145); Total Bilirubin <0.2 mg/dL (0.3-1.2); Total Protein 4.7 g/dL (6.2-8.2)
[2024-07-31 10:55] LABS: Basophils # (M) 0 X 10*3/uL (0.00-0.10); Eosinophils # (M) 0 X 10*3/uL (0.04-0.35); Lymphocytes # (M) 1.14 X 10*3/uL (0.90-5.00); Monocytes # (M) 0.36 X 10*3/uL (0.20-1.00); Neutrophils # (M) 4.49 X 10*3/uL (1.80-7.70); Neutrophils % (M) 75 %; RBC Morphology Normal (Normal)
--- NOTE | 2024-07-31 15:27 | P.PN ---
Subjective Progress Note Date: 07/30/24 Principal diagnosis: Reason for follow-up is diarrhea/ileitis Patient is a 64-year-old female with a past medical history significant for coronary disease hypertension hyperlipidemia SC reflux in this patient also with a history of lung cancer for the patient has been on chemotherapy with admission in the hospital concerning for acute nausea vomiting and diarrhea patient did have a negative C. difficile on the last admission about a week ago with a CT abdominal pelvis did show some mild small bowel dilatation without focal transition point and possible terminal ileum ileitis. On today's evaluation that is 07/30/2024, the patient continues to be afebrile, the patient is on room air and breathing comfortably, the Pt denies having any chest pain or cough, the patient denies having any nausea vomiting still complaining of lower abdominal pain and diarrhea. Patient white count is 7.26, creatinine 0.4, blood culture with Staphylococcus Objective - Vital Signs Vital signs: Vital Signs Temp 98.3 F 07/31/24 07:20 Pulse 83 07/31/24 07:20 Resp 16 07/31/24 07:20 BP 125/78 07/31/24 07:20 Pulse Ox 98 07/31/24 07:20 FiO2 21 07/28/24 07:37 Intake & Output 07/30/24 07/31/24 07/31/24 18:59 06:59 18:59 Intake Total 540 Balance 540 Weight 77.5 kg 78.5 kg Intake: Oral 540 Other: Voiding Method Diaper Toilet Incontinent # Voids 2 - Exam GENERAL DESCRIPTION: Middle-age female lying in bed in no distress RESPIRATORY SYSTEM: Unlabored breathing , decreased breath sounds at bases HEART: S1 S2 regular rate and rhythm , ABDOMEN: Soft , no tenderness EXTREMITIES: No edema feet - Labs CBC & Chem 7: 07/31/24 05:59 07/31/24 05:59 Labs: Abnormal Lab Results - Last 24 Hours (Table) 07/30/24 07/31/24 07/31/24 Range/Units 05:27 00:28 05:59 RBC 2.36 L (4.10-5.20) X 10*6/uL Hgb 8.1 L (12.0-15.0) g/dL Hct 25.0 L (37.2-46.3) % MCV 105.9 H (80.0-97.0) FL MCH 34.3 H (27.0-32.0) pg RDW 17.9 H (11.5-14.5) % Plt Count 128 L (140-440) X 10*3/uL Eosinophils # (Manual) 0 L (0.04-0.35) X 10*3/uL Promyelocytes # (Man) 0.07 H (0) k/uL NRBC/100 WBC Diff 0.08 H (0.00-0.01) X 10*3/uL Potassium 3.4 L (3.5-5.1) mmol/L Chloride (96-109) mmol/L Carbon Dioxide (21.6-31.8) mmol/L BUN (9.0-27.0) mg/dL Creatinine (0.6-1.5) mg/dL BUN/Creatinine Ratio (12.00-20.00) Ratio Calcium (8.7-10.3) mg/dL Magnesium (1.5-2.4) mg/dL Total Bilirubin (0.3-1.2) mg/dL AST (13-35) U/L Total Protein (6.2-8.2) g/dL Albumin (3.8-4.9) g/dL Albumin/Globulin Ratio (1.60-3.17) Ratio 07/31/24 Range/Units 05:59 RBC (4.10-5.20) X 10*6/uL Hgb (12.0-15.0) g/dL Hct (37.2-46.3) % MCV (80.0-97.0) FL MCH (27.0-32.0) pg RDW (11.5-14.5) % Plt Count (140-440) X 10*3/uL Eosinophils # (Manual) (0.04-0.35) X 10*3/uL Promyelocytes # (Man) (0) k/uL NRBC/100 WBC Diff (0.00-0.01) X 10*3/uL Potassium (3.5-5.1) mmol/L Chloride 113 H (96-109) mmol/L Carbon Dioxide 20.8 L (21.6-31.8) mmol/L BUN <3.5 L (9.0-27.0) mg/dL Creatinine 0.5 L (0.6-1.5) mg/dL BUN/Creatinine Ratio <7.00 L (12.00-20.00) Ratio Calcium 7.7 L (8.7-10.3) mg/dL Magnesium 1.2 L (1.5-2.4) mg/dL Total Bilirubin <0.2 L (0.3-1.2) mg/dL AST 11 L (13-35) U/L Total Protein 4.7 L (6.2-8.2) g/dL Albumin 2.7 L (3.8-4.9) g/dL Albumin/Globulin Ratio 1.35 L (1.60-3.17) Ratio Microbiology - Last 24 Hours (Table) 07/28/24 12:57 Blood Culture Gram Stain - Final Blood Blood Culture - Final Staphylococcus hominis Molecular ID 07/28/24 12:50 Stool Culture - Preliminary Stool 07/29/24 17:41 Blood Culture - Preliminary Blood Assessment and Plan (1) Ileitis, terminal Current Visit: Yes Status: Acute Code(s): K50.00 - CROHN'S DISEASE OF SMALL INTESTINE WITHOUT COMPLICATIONS SNOMED Code(s): 207019332 (2) Diarrhea Current Visit: Yes Status: Acute Priority: High Code(s): R19.7 - DIARRHEA, UNSPECIFIED SNOMED Code(s): 68050807 (3) Leukopenia Current Visit: No Status: Acute Code(s): D72.819 - DECREASED WHITE BLOOD CELL COUNT, UNSPECIFIED SNOMED Code(s): 06584734 (4) Cryptosporidiosis Current Visit: Yes Status: Acute Code(s): A07.2 - CRYPTOSPORIDIOSIS SNOMED Code(s): 298361515 (5) Positive blood culture Current Visit: Yes Status: Acute Code(s): R78.81 - BACTEREMIA SNOMED Code(s): 503679375 Plan: 1patient presented to hospital with recurrent episode of nausea vomiting and diarrhea in this patient who recently tested negative for C. difficile she did have CT of abdominal pelvis done on 07/24/2024 that has been suggestive of ileitis and question of infectious/inflammatory etiology 2-patient stool culture came back negative we will check a stool for C. difficile negative as well stool cryptosporidium antigen came back positive 3patient currently waiting for initiation of nitazoxanide 500 mg twice daily 4-positive blood culture with Staphylococcus species questionably contamination await ID Dictation was produced using [employer] software. please excuse any grammatical, word or spelling errors. Time with Patient: Less than 30
--- NOTE | 2024-07-31 15:27 | P.PN ---
Subjective Progress Note Date: 07/31/24 Principal diagnosis: Reason for follow-up is diarrhea/ileitis Patient is a 64-year-old female with a past medical history significant for coronary disease hypertension hyperlipidemia ID reflux in this patient also with a history of lung cancer for the patient has been on chemotherapy with admission in the hospital concerning for acute nausea vomiting and diarrhea patient did have a negative C. difficile on the last admission about a week ago with a CT abdominal pelvis did show some mild small bowel dilatation without focal transition point and possible terminal ileum ileitis. On today's evaluation that is 07/31/2024, Patient is afebrile patient is currently on room air and denies having any shortness of breath, the patient denies any chest pain or cough, the patient denies any nausea vomiting still lower abdominal discomfort however mention diarrhea has slowed down. The patient white count is 5.98, creatinine 0.5 blood culture have been finalized with Staphylococcus hominis Objective - Vital Signs Vital signs: Vital Signs Temp 98.3 F 07/31/24 07:20 Pulse 83 07/31/24 07:20 Resp 16 07/31/24 07:20 BP 125/78 07/31/24 07:20 Pulse Ox 98 07/31/24 07:20 FiO2 21 07/28/24 07:37 Intake & Output 07/30/24 07/31/24 07/31/24 18:59 06:59 18:59 Intake Total 540 Balance 540 Weight 77.5 kg 78.5 kg Intake: Oral 540 Other: Voiding Method Diaper Toilet Incontinent # Voids 2 - Exam GENERAL DESCRIPTION: Middle-age female lying in bed in no distress RESPIRATORY SYSTEM: Unlabored breathing , decreased breath sounds at bases HEART: S1 S2 regular rate and rhythm , ABDOMEN: Soft , no tenderness EXTREMITIES: No edema feet - Labs CBC & Chem 7: 07/31/24 05:59 07/31/24 05:59 Labs: Abnormal Lab Results - Last 24 Hours (Table) 07/30/24 07/31/24 07/31/24 Range/Units 05:27 00:28 05:59 RBC 2.36 L (4.10-5.20) X 10*6/uL Hgb 8.1 L (12.0-15.0) g/dL Hct 25.0 L (37.2-46.3) % MCV 105.9 H (80.0-97.0) FL MCH 34.3 H (27.0-32.0) pg RDW 17.9 H (11.5-14.5) % Plt Count 128 L (140-440) X 10*3/uL Eosinophils # (Manual) 0 L (0.04-0.35) X 10*3/uL Promyelocytes # (Man) 0.07 H (0) k/uL NRBC/100 WBC Diff 0.08 H (0.00-0.01) X 10*3/uL Potassium 3.4 L (3.5-5.1) mmol/L Chloride (96-109) mmol/L Carbon Dioxide (21.6-31.8) mmol/L BUN (9.0-27.0) mg/dL Creatinine (0.6-1.5) mg/dL BUN/Creatinine Ratio (12.00-20.00) Ratio Calcium (8.7-10.3) mg/dL Magnesium (1.5-2.4) mg/dL Total Bilirubin (0.3-1.2) mg/dL AST (13-35) U/L Total Protein (6.2-8.2) g/dL Albumin (3.8-4.9) g/dL Albumin/Globulin Ratio (1.60-3.17) Ratio 07/31/24 Range/Units 05:59 RBC (4.10-5.20) X 10*6/uL Hgb (12.0-15.0) g/dL Hct (37.2-46.3) % MCV (80.0-97.0) FL MCH (27.0-32.0) pg RDW (11.5-14.5) % Plt Count (140-440) X 10*3/uL Eosinophils # (Manual) (0.04-0.35) X 10*3/uL Promyelocytes # (Man) (0) k/uL NRBC/100 WBC Diff (0.00-0.01) X 10*3/uL Potassium (3.5-5.1) mmol/L Chloride 113 H (96-109) mmol/L Carbon Dioxide 20.8 L (21.6-31.8) mmol/L BUN <3.5 L (9.0-27.0) mg/dL Creatinine 0.5 L (0.6-1.5) mg/dL BUN/Creatinine Ratio <7.00 L (12.00-20.00) Ratio Calcium 7.7 L (8.7-10.3) mg/dL Magnesium 1.2 L (1.5-2.4) mg/dL Total Bilirubin <0.2 L (0.3-1.2) mg/dL AST 11 L (13-35) U/L Total Protein 4.7 L (6.2-8.2) g/dL Albumin 2.7 L (3.8-4.9) g/dL Albumin/Globulin Ratio 1.35 L (1.60-3.17) Ratio Microbiology - Last 24 Hours (Table) 07/30/24 05:32 Blood Culture - Preliminary Blood 07/28/24 12:57 Blood Culture Gram Stain - Final Blood Blood Culture - Final Staphylococcus hominis Molecular ID 07/28/24 12:50 Stool Culture - Preliminary Stool 07/29/24 17:41 Blood Culture - Preliminary Blood Assessment and Plan (1) Ileitis, terminal Current Visit: Yes Status: Acute Code(s): K50.00 - CROHN'S DISEASE OF SMALL INTESTINE WITHOUT COMPLICATIONS SNOMED Code(s): 243308743 (2) Diarrhea Current Visit: Yes Status: Acute Priority: High Code(s): R19.7 - DIARRHEA, UNSPECIFIED SNOMED Code(s): 49333451 (3) Leukopenia Current Visit: No Status: Acute Code(s): D72.819 - DECREASED WHITE BLOOD CELL COUNT, UNSPECIFIED SNOMED Code(s): 10396655 (4) Cryptosporidiosis Current Visit: Yes Status: Acute Code(s): A07.2 - CRYPTOSPORIDIOSIS SNOMED Code(s): 213968461 Plan: 1patient presented to hospital with recurrent episode of nausea vomiting and diarrhea in this patient who recently tested negative for C. difficile she did have CT of abdominal pelvis done on 07/24/2024 that has been suggestive of ileitis and question of infectious/inflammatory etiology 2-patient stool culture came back negative we will check a stool for C. difficile negative as well stool cryptosporidium antigen came back positive 3patient has been started on nitazoxanide 500 mg twice daily, await clinical response 4-positive blood culture with Staphylococcus hominis likely skin contamination discontinue cefazolin Dictation was produced using [employer] dictation software. please excuse any grammatical, word or spelling errors. Time with Patient: Less than 30
--- NOTE | 2024-08-01 04:03 | PN ---
PROGRESS NOTE DATE OF SERVICE: 07/31/2024 SUBJECTIVE: This is a 64-year-old woman, who was admitted with diarrhea, also had cryptosporidium. The patient is receiving antiparasitic medication. No chest pain. No palpitation. OBJECTIVE: VITAL SIGNS: Pulse 83, blood pressure 140/80, respirations 18. CHEST: Clear to auscultation. CARDIOVASCULAR: S1, S2. ABDOMEN: Soft, mild diffuse discomfort. LABORATORY DATA: Reviewed. Platelets 128. Rest of the labs are reviewed. ASSESSMENT: 1. Intractable nausea, vomiting, diarrhea, possibly secondary to acute cryptosporidiosis in an immunocompromised patient secondary to chemotherapy. 2. Acute ileitis. 3. Dehydration. 4. Metastatic small-cell cancer, on treatment. 5. Hypertension. 6. Multiple complex medical issues. RECOMMENDATIONS: Recommend to continue current management and continue symptomatic treatment. Otherwise, continue with Nitazoxanide. Repeat labs. Guarded prognosis because of multiple complex medical issues. Further recommendations to follow. MMODL / IJN: [id number] /
[2024-08-01 08:53] LABS: HCT 25.2 % (37.2-46.3); HGB 7.9 g/dL (12.0-15.0); MCH 34.3 pg (27.0-32.0); MCHC 31.3 g/dL (32.0-37.0); MCV 109.6 FL (80.0-97.0); Mean Platelet Volume 10.9 FL (9.5-12.2); NRBC Per 100 WBC 0.07 X 10*3/uL (0.00-0.01); Platelet Count 131 X 10*3/uL (140-440); RDW 18.5 % (11.5-14.5); WBC 4.33 X 10*3/uL (4.50-10.00)
[2024-08-01 09:24] LABS: ALT 5 U/L (8-44); AST 11 U/L (13-35); Albumin 2.8 g/dL (3.8-4.9); Albumin/Globulin Ratio 1.33 Ratio (1.60-3.17); Alkaline Phosphatase 62 U/L (41-126); BUN/Creat Ratio <8.75 Ratio (12.00-20.00); Blood Urea Nitrogen <3.5 mg/dL (9.0-27.0); Calcium 7.8 mg/dL (8.7-10.3); Carbon Dioxide 20.2 mmol/L (21.6-31.8); Chloride 109 mmol/L (96-109); Globulin 2.1 g/dL (1.6-3.3); Glucose 84 mg/dL (70-110); Potassium 4.1 mmol/L (3.5-5.5); Sodium 140 mmol/L (135-145); Total Bilirubin <0.2 mg/dL (0.3-1.2); Total Protein 4.9 g/dL (6.2-8.2)
[2024-08-01 10:46] LABS: Basophils # (A) 0.06 X 10*3/uL (0.00-0.10); Basophils % (A) 1.4 %; Eosinophils # (A) 0.01 X 10*3/uL (0.04-0.35); Eosinophils % (A) 0.2 %; Lymphocytes # (A) 1.46 X 10*3/uL (0.90-5.00); Lymphocytes % (A) 33.7 %; Macrocytosis (M) 2+; Monocytes # (A) 0.74 X 10*3/uL (0.20-1.00); Monocytes % (A) 17.1 %; Neutrophils # (A) 1.86 X 10*3/uL (1.80-7.70)
--- NOTE | 2024-08-01 13:09 | P.PN ---
Subjective Progress Note Date: 08/01/24 Principal diagnosis: Reason for follow-up is diarrhea/ileitis Patient is a 64-year-old female with a past medical history significant for coronary disease hypertension hyperlipidemia [place] reflux in this patient also with a history of lung cancer for the patient has been on chemotherapy with admission in the hospital concerning for acute nausea vomiting and diarrhea patient did have a negative C. difficile on the last admission about a week ago with a CT abdominal pelvis did show some mild small bowel dilatation without focal transition point and possible terminal ileum ileitis. On today's evaluation that is 08/01/2024, patient has been afebrile, patient is breathing comfortably and is currently on room air, patient denies having any significant cough no chest pain, patient denies nausea vomiting abdominal pain has decreased intensity and diarrhea has slowed down mention feeling better. Patient white count is 4.33 hemoglobin is 7.9 creatinine 0.4 blood culture repeat has been negative Objective - Vital Signs Vital signs: Vital Signs Temp 98.1 F 08/01/24 07:32 Pulse 77 08/01/24 07:32 Resp 17 08/01/24 07:32 BP 114/76 08/01/24 07:32 Pulse Ox 97 08/01/24 07:32 FiO2 21 07/28/24 07:37 Intake & Output 07/31/24 08/01/24 08/01/24 18:59 06:59 18:59 Weight 77.1 kg 77.1 kg Other: Voiding Method Toilet Toilet Toilet # Voids 3 2 - Exam GENERAL DESCRIPTION: Middle-age female lying in bed in no distress RESPIRATORY SYSTEM: Unlabored breathing , decreased breath sounds at bases HEART: S1 S2 regular rate and rhythm , ABDOMEN: Soft , no tenderness EXTREMITIES: No edema feet - Labs CBC & Chem 7: 08/01/24 05:19 08/01/24 05:19 Labs: Abnormal Lab Results - Last 24 Hours (Table) 08/01/24 08/01/24 Range/Units 05:19 05:19 WBC 4.33 L (4.50-10.00) X 10*3/uL RBC 2.30 L (4.10-5.20) X 10*6/uL Hgb 7.9 L (12.0-15.0) g/dL Hct 25.2 L (37.2-46.3) % MCV 109.6 H (80.0-97.0) FL MCH 34.3 H (27.0-32.0) pg MCHC 31.3 L (32.0-37.0) g/dL RDW 18.5 H (11.5-14.5) % Plt Count 131 L (140-440) X 10*3/uL Immature Gran # 0.20 H (0.00-0.04) X 10*3/uL Eosinophils # 0.01 L (0.04-0.35) X 10*3/uL NRBC/100 WBC Diff 0.07 H (0.00-0.01) X 10*3/uL Macrocytosis (manual) 2+ A Carbon Dioxide 20.2 L (21.6-31.8) mmol/L BUN <3.5 L (9.0-27.0) mg/dL Creatinine 0.4 L (0.6-1.5) mg/dL BUN/Creatinine Ratio <8.75 L (12.00-20.00) Ratio Calcium 7.8 L (8.7-10.3) mg/dL Total Bilirubin <0.2 L (0.3-1.2) mg/dL AST 11 L (13-35) U/L ALT 5 L (8-44) U/L Total Protein 4.9 L (6.2-8.2) g/dL Albumin 2.8 L (3.8-4.9) g/dL Albumin/Globulin Ratio 1.33 L (1.60-3.17) Ratio Microbiology - Last 24 Hours (Table) 07/30/24 05:32 Blood Culture - Preliminary Blood 07/28/24 12:50 Stool Culture - Final Stool 07/29/24 17:41 Blood Culture - Preliminary Blood 07/28/24 12:57 Blood Culture Gram Stain - Final Blood Blood Culture - Final Staphylococcus hominis Molecular ID Assessment and Plan (1) Ileitis, terminal Current Visit: Yes Status: Acute Code(s): K50.00 - CROHN'S DISEASE OF SMALL INTESTINE WITHOUT COMPLICATIONS SNOMED Code(s): 665232917 (2) Diarrhea Current Visit: Yes Status: Acute Priority: High Code(s): R19.7 - DIARRHEA, UNSPECIFIED SNOMED Code(s): 08738294 (3) Leukopenia Current Visit: No Status: Acute Code(s): D72.819 - DECREASED WHITE BLOOD CELL COUNT, UNSPECIFIED SNOMED Code(s): 61954010 (4) Cryptosporidiosis Current Visit: Yes Status: Acute Code(s): A07.2 - CRYPTOSPORIDIOSIS SNOMED Code(s): 788974409 Plan: 1patient presented to hospital with recurrent episode of nausea vomiting and diarrhea in this patient who recently tested negative for C. difficile she did have CT of abdominal pelvis done on 07/24/2024 that has been suggestive of ileitis and question of infectious/inflammatory etiology 2-patient stool culture came back negative, stool for C. difficile negative as well, stool cryptosporidium antigen came back positive 3positive blood culture with Staphylococcus hominis likely skin contamination, repeat blood culture have been negative cefazolin was discontinued 4-patient has been started on nitazoxanide 500 mg twice daily, did have some clinical improvement to continue, and monitor clinical course closely Dictation was produced using [employer] dictation software. please excuse any grammatical, word or spelling errors. Time with Patient: Less than 30
--- NOTE | 2024-08-01 18:22 | P.PN ---
Subjective Progress Note Date: 08/01/24 The patient feels somewhat stronger. Stools are still watery, but frequency and volume have decreased. She reports about 3-4 bowel movements today. Abdominal pain has also improved significantly Objective - Vital Signs Vital signs: Vital Signs Temp 98.2 F 08/01/24 14:00 Pulse 84 08/01/24 14:00 Resp 18 08/01/24 14:00 BP 110/72 08/01/24 14:00 Pulse Ox 97 08/01/24 14:00 FiO2 21 07/28/24 07:37 Intake & Output 07/31/24 08/01/24 08/01/24 18:59 06:59 18:59 Intake Total 1796 Balance 1796 Weight 77.1 kg 77.1 kg Intake: Oral 1796 Other: Voiding Method Toilet Toilet Toilet # Voids 3 2 3 - Constitutional General appearance: Present: no acute distress - EENT Eyes: Present: EOMI ENT: Present: hearing grossly normal, normal oropharynx - Respiratory Respiratory: bilateral: CTA - Cardiovascular Rhythm: regular Heart sounds: normal: S1, S2 - Gastrointestinal General gastrointestinal: Present: normal bowel sounds, soft - Integumentary Integumentary: Present: normal - Neurologic Neurologic: Present: CNII-XII intact - Musculoskeletal Musculoskeletal: Present: generalized weakness, strength equal bilaterally - Psychiatric Psychiatric: Present: A&O x's 3 - Labs CBC & Chem 7: 08/01/24 05:19 08/01/24 05:19 Labs: Abnormal Lab Results - Last 24 Hours (Table) 08/01/24 08/01/24 Range/Units 05:19 05:19 WBC 4.33 L (4.50-10.00) X 10*3/uL RBC 2.30 L (4.10-5.20) X 10*6/uL Hgb 7.9 L (12.0-15.0) g/dL Hct 25.2 L (37.2-46.3) % MCV 109.6 H (80.0-97.0) FL MCH 34.3 H (27.0-32.0) pg MCHC 31.3 L (32.0-37.0) g/dL RDW 18.5 H (11.5-14.5) % Plt Count 131 L (140-440) X 10*3/uL Immature Gran # 0.20 H (0.00-0.04) X 10*3/uL Eosinophils # 0.01 L (0.04-0.35) X 10*3/uL NRBC/100 WBC Diff 0.07 H (0.00-0.01) X 10*3/uL Macrocytosis (manual) 2+ A Carbon Dioxide 20.2 L (21.6-31.8) mmol/L BUN <3.5 L (9.0-27.0) mg/dL Creatinine 0.4 L (0.6-1.5) mg/dL BUN/Creatinine Ratio <8.75 L (12.00-20.00) Ratio Calcium 7.8 L (8.7-10.3) mg/dL Total Bilirubin <0.2 L (0.3-1.2) mg/dL AST 11 L (13-35) U/L ALT 5 L (8-44) U/L Total Protein 4.9 L (6.2-8.2) g/dL Albumin 2.8 L (3.8-4.9) g/dL Albumin/Globulin Ratio 1.33 L (1.60-3.17) Ratio Microbiology - Last 24 Hours (Table) 07/30/24 05:32 Blood Culture - Preliminary Blood 07/28/24 12:50 Stool Culture - Final Stool 07/29/24 17:41 Blood Culture - Preliminary Blood Assessment and Plan (1) Diarrhea Narrative/Plan: This is likely multifactorial, due to chemotherapy effect including neutropenic enterocolitis, as well as Cryptosporidium infection. The patient's WBC has normalized. She is on treatment for Cryptosporidium, per ID. Symptoms have improved. 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 Orders have already been given to reduce her irinotecan dose Current Visit: Yes Status: Acute Priority: High Code(s): C34.90 - MALIGNANT NEOPLASM OF UNSP PART OF UNSP BRONCHUS OR LUNG SNOMED Code(s): 323164792378187 (4) Pancytopenia due to antineoplastic chemotherapy Narrative/Plan: WBC has improved to the normal range. Hemoglobin and platelets are stable in a safe range. Continue to monitor and transfuse to keep hemoglobin greater than 7. Current Visit: Yes Status: Acute Code(s): D61.810 - ANTINEOPLASTIC CHEMOTHERAPY INDUCED PANCYTOPENIA; T45.1X5A - ADVERSE EFFECT OF ANTINEOPLASTIC AND IMMUNOSUP DRUGS, INIT SNOMED Code(s): 803844471079449
--- NOTE | 2024-08-02 01:06 | PN ---
PROGRESS NOTE DATE OF SERVICE: 08/01/2024 SUBJECTIVE: This is a 64-year-old woman, who was admitted with cryptosporidium diarrhea, is improving slightly. No chest pain. No palpitation. OBJECTIVE: VITAL SIGNS: Pulse 84, blood pressure 130/76, respirations 18. CHEST: A few scattered rhonchi. ABDOMEN: Soft, mild diffuse discomfort. NERVOUS SYSTEM: Nonfocal. LABORATORY DATA: Hemoglobin 7.2. Rest of the labs are noted. ASSESSMENT: 1. Intractable nausea, vomiting, diarrhea possibly secondary to acute cryptosporidiosis in an immunocompromised patient secondary to chemotherapy. 2. Acute ileitis. 3. Dehydration. 4. Metastatic small-cell cancer, on treatment. 5. Hypertension. 6. Multiple complex medical issues. RECOMMENDATIONS: Recommend to continue current management. Continue symptomatic treatment. Monitor lytes closely. Continue with Nitazoxanide. Otherwise, continue with Questran. Further recommendations to follow. MMODL / IJN: [id number] /
[2024-08-02 09:53] LABS: Magnesium 1.3 mg/dL (1.5-2.4)
[2024-08-02 09:57] LABS: HCT 25.3 % (37.2-46.3); HGB 7.8 g/dL (12.0-15.0); MCH 33.9 pg (27.0-32.0); MCHC 30.8 g/dL (32.0-37.0); Mean Platelet Volume 10.8 FL (9.5-12.2); NRBC Per 100 WBC 0.06 X 10*3/uL (0.00-0.01); Platelet Count 146 X 10*3/uL (140-440); RDW 18.6 % (11.5-14.5); WBC 3.43 X 10*3/uL (4.50-10.00)
[2024-08-02 10:01] LABS: BUN/Creat Ratio <8.75 Ratio (12.00-20.00); Blood Urea Nitrogen <3.5 mg/dL (9.0-27.0); Calcium 7.7 mg/dL (8.7-10.3); Carbon Dioxide 21.2 mmol/L (21.6-31.8); Chloride 111 mmol/L (96-109); Glucose 80 mg/dL (70-110); Potassium 4.1 mmol/L (3.5-5.5); Sodium 141 mmol/L (135-145)
[2024-08-02 13:56] LABS: Basophils # (A) 0.03 X 10*3/uL (0.00-0.10); Basophils % (A) 0.9 %; Eosinophils # (A) 0.02 X 10*3/uL (0.04-0.35); Eosinophils % (A) 0.6 %; Lymphocytes # (A) 1.41 X 10*3/uL (0.90-5.00); Lymphocytes % (A) 41.1 %; Monocytes # (A) 0.62 X 10*3/uL (0.20-1.00); Monocytes % (A) 18.1 %; Neutrophils # (A) 1.19 X 10*3/uL (1.80-7.70); Neutrophils % (A) 34.6 %
[2024-08-02] MEDS ORDERED: Magnesium Replacement Protocol 1 EACH MISC MISCELLANE PRN (16:02)
[2024-08-02] MEDS: MAGNESIUM SULFATE-D5W PMX 1 GM in DEXTROSE/WATER 1 100ML.BAG IVPB SCH (17:31)
--- NOTE | 2024-08-02 22:34 | P.PN ---
Subjective Progress Note Date: 08/02/24 Principal diagnosis: Reason for follow-up is diarrhea/ileitis Patient is a 64-year-old female with a past medical history significant for coronary disease hypertension hyperlipidemia [place] reflux in this patient also with a history of lung cancer for the patient has been on chemotherapy with admission in the hospital concerning for acute nausea vomiting and diarrhea patient did have a negative C. difficile on the last admission about a week ago with a CT abdominal pelvis did show some mild small bowel dilatation without focal transition point and possible terminal ileum ileitis. On today's evaluation that is 08/02/2024, Patient is afebrile this morning patient denies having any chest pain shortness of breath or cough, the patient is currently on room air, patient abdominal pain has slightly decreased in intensity and diarrhea has slowed down, no nausea no vomiting. Patient white count is 3.43 creatinine 0.4 blood culture repeat is currently pending Objective - Vital Signs Vital signs: Vital Signs Temp 97.8 F 08/02/24 07:41 Pulse 74 08/02/24 07:41 Resp 14 08/02/24 07:41 BP 120/78 08/02/24 07:41 Pulse Ox 98 08/02/24 07:41 FiO2 21 07/28/24 07:37 Intake & Output 08/01/24 08/02/24 08/02/24 18:59 06:59 18:59 Intake Total 1796 Balance 1796 Weight 77.1 kg 76.8 kg Intake: Oral 1796 Other: Voiding Method Toilet Toilet # Voids 3 1 - Exam GENERAL DESCRIPTION: Middle-age female lying in bed in no distress RESPIRATORY SYSTEM: Unlabored breathing , decreased breath sounds at bases HEART: S1 S2 regular rate and rhythm , ABDOMEN: Soft , no tenderness EXTREMITIES: No edema feet - Labs CBC & Chem 7: 08/02/24 05:29 08/02/24 05:29 Labs: Abnormal Lab Results - Last 24 Hours (Table) 08/02/24 08/02/24 Range/Units 05:29 05:29 WBC 3.43 L (4.50-10.00) X 10*3/uL RBC 2.30 L (4.10-5.20) X 10*6/uL Hgb 7.8 L (12.0-15.0) g/dL Hct 25.3 L (37.2-46.3) % MCV 110.0 H (80.0-97.0) FL MCH 33.9 H (27.0-32.0) pg MCHC 30.8 L (32.0-37.0) g/dL RDW 18.6 H (11.5-14.5) % NRBC/100 WBC Diff 0.06 H (0.00-0.01) X 10*3/uL Chloride 111 H (96-109) mmol/L Carbon Dioxide 21.2 L (21.6-31.8) mmol/L BUN <3.5 L (9.0-27.0) mg/dL Creatinine 0.4 L (0.6-1.5) mg/dL BUN/Creatinine Ratio <8.75 L (12.00-20.00) Ratio Calcium 7.7 L (8.7-10.3) mg/dL Magnesium 1.3 L (1.5-2.4) mg/dL Microbiology - Last 24 Hours (Table) 07/29/24 17:41 Blood Culture - Preliminary Blood 07/30/24 05:32 Blood Culture - Preliminary Blood 07/28/24 12:50 Stool Culture - Final Stool Assessment and Plan (1) Ileitis, terminal Current Visit: Yes Status: Acute Code(s): K50.00 - CROHN'S DISEASE OF SMALL INTESTINE WITHOUT COMPLICATIONS SNOMED Code(s): 541470233 (2) Diarrhea Current Visit: Yes Status: Acute Priority: High Code(s): R19.7 - DIARRHEA, UNSPECIFIED SNOMED Code(s): 92595554 (3) Leukopenia Current Visit: No Status: Acute Code(s): D72.819 - DECREASED WHITE BLOOD CELL COUNT, UNSPECIFIED SNOMED Code(s): 02310107 (4) Cryptosporidiosis Current Visit: Yes Status: Acute Code(s): A07.2 - CRYPTOSPORIDIOSIS SNOMED Code(s): 602578990 Plan: 1patient presented to hospital with recurrent episode of nausea vomiting and diarrhea in this patient who recently tested negative for C. difficile she did have CT of abdominal pelvis done on 07/24/2024 that has been suggestive of ileitis and question of infectious/inflammatory etiology 2-patient stool culture came back negative, stool for C. difficile negative as well, stool cryptosporidium antigen came back positive 3positive blood culture with Staphylococcus hominis likely skin contamination, repeat blood culture have been negative, no need for antibiotics for the positive blood culture 4-patient mentions some improvement with diarrhea we will continue with nitazoxanide 500 mg twice daily and monitor clinical course closely Dictation was produced using [employer] dictation software. please excuse any gra mmatical, word or spelling errors. Time with Patient: Less than 30
--- NOTE | 2024-08-03 07:18 | PN ---
PROGRESS NOTE DATE OF SERVICE: 08/02/2024 SUBJECTIVE: This is a 64-year-old woman who was admitted with intractable vomiting, nausea, had cryptosporidiosis. No chest pain. No palpitation. Diarrhea seems to be at least a frequency improving. OBJECTIVE: VITAL SIGNS: Pulse 81, blood pressure 125/90, respirations 16. CHEST: A few scattered rhonchi. ABDOMEN: Soft. NERVOUS SYSTEM: Nonfocal. LABORATORY DATA: WBC 3.2, hemoglobin 7.8. The rest of the labs are noted. ASSESSMENT: 1. Intractable nausea, vomiting, diarrhea, possibly secondary to acute cryptosporidiosis in an immunocompromised patient secondary to chemotherapy. 2. Acute ileitis. 3. Dehydration. 4. Metastatic small-cell cancer, on treatment. 5. Hypertension. 6. Multiple complex medical issues. RECOMMENDATIONS: Recommend to continue current management and continue symptomatic treatment. Otherwise, repeat labs. Continue with Nitazoxanide. Further recommendations to follow. MMODL / IJN: [id number] /
[2024-08-03 09:49] LABS: BUN/Creat Ratio <8.75 Ratio (12.00-20.00); Blood Urea Nitrogen <3.5 mg/dL (9.0-27.0); Calcium 7.8 mg/dL (8.7-10.3); Carbon Dioxide 22.9 mmol/L (21.6-31.8); Chloride 113 mmol/L (96-109); Glucose 88 mg/dL (70-110); Magnesium 2.3 mg/dL (1.5-2.4); Potassium 4.7 mmol/L (3.5-5.5); Sodium 145 mmol/L (135-145)
[2024-08-03 09:50] LABS: HCT 25.2 % (37.2-46.3); HGB 7.8 g/dL (12.0-15.0); MCH 34.1 pg (27.0-32.0); Mean Platelet Volume 10.5 FL (9.5-12.2); NRBC Per 100 WBC 0.06 X 10*3/uL (0.00-0.01); Platelet Count 167 X 10*3/uL (140-440); RBC 2.29 X 10*6/uL (4.10-5.20); RDW 18.1 % (11.5-14.5); WBC 3.06 X 10*3/uL (4.50-10.00)
[2024-08-03 10:51] LABS: Basophils # (M) 0.06 X 10*3/uL (0.00-0.10); Eosinophils # (M) 0 X 10*3/uL (0.04-0.35); Lymphocytes # (M) 0.98 X 10*3/uL (0.90-5.00); Metamyelocytes % 1 % (0-0); Monocytes # (M) 0.31 X 10*3/uL (0.20-1.00); Myelocytes % 2 % (0-0); Neutrophils # (M) 1.62 X 10*3/uL (1.80-7.70); Neutrophils % (M) 53 %
--- NOTE | 2024-08-04 05:36 | PN ---
PROGRESS NOTE DATE OF SERVICE: 08/03/2024 SUBJECTIVE: This 64-year-old woman, who was admitted with Cryptosporidium diarrhea. Still has some diarrhea. No chest pain. No palpitations. No fever. PHYSICAL EXAMINATION: VITAL SIGNS: Pulse 72, blood pressure 147/99, respirations 18. CHEST: Clear to auscultation. CARDIOVASCULAR: S1, S2. ABDOMEN: Soft, nontender. No masses. LABORATORY DATA: Hemoglobin 7.8. Rest of the labs are noted. ASSESSMENT: 1. Intractable nausea, vomiting, diarrhea, possibly secondary to. 2. acute cryptosporidiosis in an immunocompromised patient secondary to chemotherapy. 3. Acute ileitis. 4. Dehydration. 5. Metastatic small cell cancer, on treatment. 6. Hypertension. 7. Multiple complex medical issues. RECOMMENDATION: Continue current management and continue symptomatic treatment and add Imodium. Repeat labs. Closely follow with Infectious Disease and Hematology/Oncology. Guarded prognosis. Further recommendations to follow. MMODL / MAXXN: [id number] /
--- NOTE | 2024-08-04 07:49 | P.PN ---
Subjective Progress Note Date: 08/03/24 Principal diagnosis: Reason for follow-up is diarrhea/ileitis Patient is a 64-year-old female with a past medical history significant for coronary disease hypertension hyperlipidemia IN reflux in this patient also with a history of lung cancer for the patient has been on chemotherapy with admission in the hospital concerning for acute nausea vomiting and diarrhea patient did have a negative C. difficile on the last admission about a week ago with a CT abdominal pelvis did show some mild small bowel dilatation without focal transition point and possible terminal ileum ileitis. On today's evaluation that is 08/03/2024,the patient denies any fever or any chills, patient is breathing comfortably on room air, the patient denies chest pain shortness of breath and no significant cough, patient lower abdominal discomfort has decreased no nausea vomiting diarrhea has slowed down but still having liquidy stool. Patient white count is 3.06 creatinine 0.4 Objective - Vital Signs Vital signs: Vital Signs Temp 98.1 F 08/03/24 18:51 Pulse 72 08/03/24 18:51 Resp 19 08/03/24 18:51 BP 120/77 08/03/24 18:51 Pulse Ox 98 08/03/24 18:51 FiO2 21 07/28/24 07:37 Intake & Output 08/03/24 08/03/24 08/04/24 06:59 18:59 06:59 Intake Total 1080 Balance 1080 Weight 77.1 kg Intake: Oral 1080 Other: Voiding Method Toilet Toilet # Voids 1 3 - Exam GENERAL DESCRIPTION: Middle-age female lying in bed in no distress RESPIRATORY SYSTEM: Unlabored breathing , decreased breath sounds at bases HEART: S1 S2 regular rate and rhythm , ABDOMEN: Soft , no tenderness EXTREMITIES: No edema feet - Labs CBC & Chem 7: 08/03/24 05:33 08/03/24 05:33 Labs: Abnormal Lab Results - Last 24 Hours (Table) 08/03/24 08/03/24 Range/Units 05:33 05:33 WBC 3.06 L (4.50-10.00) X 10*3/uL RBC 2.29 L (4.10-5.20) X 10*6/uL Hgb 7.8 L (12.0-15.0) g/dL Hct 25.2 L (37.2-46.3) % MCV 110.0 H (80.0-97.0) FL MCH 34.1 H (27.0-32.0) pg MCHC 31.0 L (32.0-37.0) g/dL RDW 18.1 H (11.5-14.5) % Neutrophils # (Manual) 1.62 L (1.80-7.70) X 10*3/uL Eosinophils # (Manual) 0 L (0.04-0.35) X 10*3/uL NRBC/100 WBC Diff 0.06 H (0.00-0.01) X 10*3/uL Chloride 113 H (96-109) mmol/L BUN <3.5 L (9.0-27.0) mg/dL Creatinine 0.4 L (0.6-1.5) mg/dL BUN/Creatinine Ratio <8.75 L (12.00-20.00) Ratio Calcium 7.8 L (8.7-10.3) mg/dL Assessment and Plan (1) Ileitis, terminal Current Visit: Yes Status: Acute Code(s): K50.00 - CROHN'S DISEASE OF SMALL INTESTINE WITHOUT COMPLICATIONS SNOMED Code(s): 957776543 (2) Diarrhea Current Visit: Yes Status: Acute Priority: High Code(s): R19.7 - DIARRHEA, UNSPECIFIED SNOMED Code(s): 77834856 (3) Leukopenia Current Visit: No Status: Acute Code(s): D72.819 - DECREASED WHITE BLOOD CELL COUNT, UNSPECIFIED SNOMED Code(s): 99105392 (4) Cryptosporidiosis Current Visit: Yes Status: Acute Code(s): A07.2 - CRYPTOSPORIDIOSIS SNOMED Code(s): 482182039 Plan: 1patient presented to hospital with recurrent episode of nausea vomiting and diarrhea in this patient who recently tested negative for C. difficile she did have CT of abdominal pelvis done on 07/24/2024 that has been suggestive of ileitis and question of infectious/inflammatory etiology 2-patient stool culture came back negative, stool for C. difficile negative as well, stool cryptosporidium antigen came back positive 3positive blood culture with Staphylococcus hominis likely skin contamination, repeat blood culture have been negative, no need for antibiotics for the positive blood culture 4-patient still having some loose stool has been encouraged to try Questran and will continue nitazoxanide 500 mg twice daily and monitor clinical course closely Dictation was produced using [employer] dictation software. please excuse any grammatical, word or spelling errors. Time with Patient: Less than 30
[2024-08-04 08:52] LABS: HCT 27.6 % (37.2-46.3); HGB 8.5 g/dL (12.0-15.0); MCH 33.7 pg (27.0-32.0); MCHC 30.8 g/dL (32.0-37.0); MCV 109.5 FL (80.0-97.0); Mean Platelet Volume 10.4 FL (9.5-12.2); NRBC Per 100 WBC 0.06 X 10*3/uL (0.00-0.01); Platelet Count 217 X 10*3/uL (140-440); RBC 2.52 X 10*6/uL (4.10-5.20); RDW 18.1 % (11.5-14.5); WBC 3.43 X 10*3/uL (4.50-10.00)
[2024-08-04 09:06] LABS: BUN/Creat Ratio <7.00 Ratio (12.00-20.00); Blood Urea Nitrogen <3.5 mg/dL (9.0-27.0); Calcium 8.2 mg/dL (8.7-10.3); Carbon Dioxide 23.5 mmol/L (21.6-31.8); Chloride 107 mmol/L (96-109); Glucose 92 mg/dL (70-110); Potassium 4.6 mmol/L (3.5-5.5); Sodium 140 mmol/L (135-145)
[2024-08-04] MEDS: LOPERAMIDE 2 MG CAP PO PRN (11:54)
[2024-08-04 12:41] LABS: Basophils # (M) 0.03 X 10*3/uL (0.00-0.10); Eosinophils # (M) 0 X 10*3/uL (0.04-0.35); Lymphocytes # (M) 1.27 X 10*3/uL (0.90-5.00); Metamyelocytes % 3 % (0-0); Monocytes # (M) 0.45 X 10*3/uL (0.20-1.00); Myelocytes % 4 % (0-0); Neutrophils # (M) 1.44 X 10*3/uL (1.80-7.70); Neutrophils % (M) 42 %
[2024-08-04 12:42] LABS: Anisocytosis (M) 2+; Elliptocytes 2+; Macrocytosis (M) 2+; Nucleated Red Blood Cells 1 /100 WBCS; Polychromasia 2+; Tear Drop Cells 2+
--- NOTE | 2024-08-04 15:04 | P.PN ---
Subjective Progress Note Date: 08/04/24 Principal diagnosis: N,V, Cryptosporidium diarrhea. On chemo for SCLC In f/u today pt reports 5 watery BMs, with "sand" like stool that sinks to bottom, since midnight. She will have some lower abd cramping before stool but, resolves after BM. Denies blood or mucus in the stool. She has not vomited in several days, she is eating much better. No fever, cough, swelling or pain to report. Objective - Vital Signs Vital signs: Vital Signs Temp 98.2 F 08/04/24 12:38 Pulse 83 08/04/24 12:38 Resp 17 08/04/24 12:38 BP 118/79 08/04/24 12:38 Pulse Ox 97 08/04/24 12:38 FiO2 21 07/28/24 07:37 Intake & Output 08/03/24 08/04/24 08/04/24 18:59 06:59 18:59 Intake Total 1080 Balance 1080 Weight 75.8 kg Intake: Oral 1080 Other: Voiding Method Toilet Toilet # Voids 3 1 - Constitutional General appearance: Present: average body habitus, cooperative, no acute distress - EENT Eyes: Present: anicteric sclerae, EOMI ENT: Present: hearing grossly normal - Respiratory Details: resp even and unlabored - Cardiovascular Details: skin warm, well perfused - Peripheral edema leg Peripheral Edema: bilateral: None - Gastrointestinal General gastrointestinal: Present: normal bowel sounds, soft. Absent: absent bowel sounds, decreased bowel sounds, distended, hepatomegaly, hyperactive bowel sounds, organomegaly, rigid, scaphoid, splenomegaly, tenderness, umbilical hernia, ventral hernia - Integumentary Integumentary: Present: normal - Neurologic Neurologic: Present: CNII-XII intact - Musculoskeletal Musculoskeletal: Present: strength equal bilaterally - Psychiatric Psychiatric: Present: A&O x's 3, appropriate affect, intact judgment & insight - Labs CBC & Chem 7: 08/04/24 05:04 08/04/24 05:04 Labs: Abnormal Lab Results - Last 24 Hours (Table) 08/04/24 08/04/24 Range/Units 05:04 05:04 WBC 3.43 L (4.50-10.00) X 10*3/uL RBC 2.52 L (4.10-5.20) X 10*6/uL Hgb 8.5 L (12.0-15.0) g/dL Hct 27.6 L (37.2-46.3) % MCV 109.5 H (80.0-97.0) FL MCH 33.7 H (27.0-32.0) pg MCHC 30.8 L (32.0-37.0) g/dL RDW 18.1 H (11.5-14.5) % Neutrophils # (Manual) 1.44 L (1.80-7.70) X 10*3/uL Eosinophils # (Manual) 0 L (0.04-0.35) X 10*3/uL NRBC/100 WBC Diff 0.06 H (0.00-0.01) X 10*3/uL Polychromasia 2+ A Anisocytosis (manual) 2+ A Macrocytosis (manual) 2+ A Tear Drop Cells 2+ A Elliptocytes 2+ A BUN <3.5 L (9.0-27.0) mg/dL Creatinine 0.5 L (0.6-1.5) mg/dL BUN/Creatinine Ratio <7.00 L (12.00-20.00) Ratio Calcium 8.2 L (8.7-10.3) mg/dL Microbiology - Last 24 Hours (Table) 07/30/24 05:32 Blood Culture - Final Blood 07/28/24 12:50 Stool Culture - Final Stool 07/29/24 17:41 Blood Culture - Final Blood Assessment and Plan (1) Diarrhea Current Visit: Yes Status: Acute Priority: High Code(s): R19.7 - DIARRHEA, UNSPECIFIED SNOMED Code(s): 71070749 (2) Small cell lung carcinoma Current Visit: Yes Status: Acute Priority: High Code(s): C34.90 - MALIGNANT NEOPLASM OF UNSP PART OF UNSP BRONCHUS OR LUNG SNOMED Code(s): 349021046 Plan: N/V/D, hypotension -Given fluid bolus and solu-cortef with resolution of hypotension. -N,V now resolved, pt doing well. Will change to PO soon -Possible ileitis on imaging. ID following. Pt is on abx -Tolerating full liquid diet. Abd exam is mild discomfort to palpation today. May consider advancing diet to soft once all providers have had a chance to examine -Cryptosporidium stool positive, ID following. Chemo induced pancytopenia -WBC 3.4, ANC 1.4. GCSF was given on admit, this has been discontinued. WBC/ANC adequate at this time -Hgb stable at 8.5, transfuse for a Hgb 7 or if symptomatic -Plt 127,000 today, almost completely recovered Metastatic small cell lung cancer -Currently on treatment with carboplatin and irinotecan, completing cycle 3, day 1 on 07/04. Treatment will cont to be delayed until pt has recovered and rehabililtated from her acute conditions. Dose reduction has already been ordered
[2024-08-04] MEDS: IOPAMIDOL CONTRAST (ORAL USE) VIAL PO PRN (15:33)
--- NOTE | 2024-08-04 18:04 | CT ---
EXAMINATION TYPE: CT abdomen pelvis wo con DATE OF EXAM: 08/04/2024 5:59 PM COMPARISON: 07/24/2024 CLINICAL INDICATION: Female, 64 years old with history of Diarrhea, Diarrhea. TECHNIQUE: Axial images with sagittal coronal reformats. Examination of the solid and hollow viscera is limited given the lack of contrast. CT DLP: 605.40 mGycm, Automated exposure control for dose reduction was used. FINDINGS: LUNG BASES: 4 mm left lower lobe pulmonary nodule is unchanged. No evidence for infiltrate. LIVER/GB: The gallbladder is unremarkable. No space-occupying hepatic lesion. PANCREAS: No pancreatic mass identified. No inflammatory process seen. SPLEEN: No evidence for splenomegaly. No intrasplenic lesions seen. ADRENALS: No adrenal nodules identified. No evidence for thickening. KIDNEYS: No evidence for renal mass. No nephrolithiasis. No hydronephrosis. BOWEL: Appendix has a normal appearance. Resolution of previously noted partial obstructive changes. Contrast is seen within the right hemicolon. No evidence of bowel obstruction. No inflammatory proces s. Lymph nodes: No evidence for adenopathy greater than 1 cm. Abdominal aorta: Atheromatous changes seen. No evidence for aneurysm. Genital organs: No significant abnormality. Other: No significant abnormality. IMPRESSION: Resolution of previously noted partial obstructive changes. Contrast is seen within the right hemicol on. NO ACUTE INTRA-ABDOMINAL PROCESS SEEN. [facility], , 08/04/2024 6:02 PM
--- NOTE | 2024-08-05 08:54 | PN ---
PROGRESS NOTE DATE OF SERVICE: 08/04/2024 SUBJECTIVE: This is a 64-year-old woman, who was admitted with cryptosporidiosis in the setting of immunosuppression, keeps complaining of mild abdominal discomfort and continued diarrhea. The patient was given Questran and Imodium also. The patient is being closely monitored. I would recommend a repeat CT scan to ensure stability. PAST MEDICAL HISTORY: Reviewed. REVIEW OF SYSTEMS: A 14-point review is negative except as mentioned earlier. CURRENT MEDICATIONS: Reviewed. PHYSICAL EXAMINATION: VITAL SIGNS: Pulse is 87, blood pressure 120/88, respirations 16. CHEST: A few scattered rhonchi and crackles. ABDOMEN: Soft. NERVOUS SYSTEM: Nonfocal. LABORATORY DATA: WBC 3.4 with hemoglobin 8.5. Otherwise, other labs are noted. ASSESSMENT: 1. Intractable nausea, vomiting, diarrhea, possibly secondary to immunosuppression and acute cryptosporidiosis. 2. Acute ileitis. 3. Dehydration. 4. Metastatic small-cell cancer, on treatment. 5. Hypertension. 6. Multiple complex medical issues. RECOMMENDATIONS AND DISCUSSION: Recommend to continue current management and continue symptomatic treatment. Otherwise, repeat stool studies, CT scan of the abdomen and pelvis. I would obtain stool culture and fungal cultures also. Prognosis guarded. Further recommendations to follow. MMODL / IJN: [id number] /
--- NOTE | 2024-08-05 08:55 | P.PN ---
Subjective Progress Note Date: 08/04/24 Principal diagnosis: Reason for follow-up is diarrhea/ileitis Patient is a 64-year-old female with a past medical history significant for coronary disease hypertension hyperlipidemia IN reflux in this patient also with a history of lung cancer for the patient has been on chemotherapy with admission in the hospital concerning for acute nausea vomiting and diarrhea patient did have a negative C. difficile on the last admission about a week ago with a CT abdominal pelvis did show some mild small bowel dilatation without focal transition point and possible terminal ileum ileitis. On today's evaluation that is 08/04/2024,the patient remains to be afebrile, patient is on room air not requiring supplemental oxygen and denies any shortness of breath no chest pain or cough.Patient denies having any nausea or vomiting, lower abdominal pain has decreased in intensity still having diarrhea though frequency has decreased. Patient white count is 3.43 creatinine 0.5 Objective - Vital Signs Vital signs: Vital Signs Temp 98.3 F 08/04/24 07:18 Pulse 87 08/04/24 07:18 Resp 16 08/04/24 07:18 BP 128/81 08/04/24 07:18 Pulse Ox 97 08/04/24 07:18 FiO2 21 07/28/24 07:37 Intake & Output 08/03/24 08/04/24 08/04/24 18:59 06:59 18:59 Intake Total 1080 Balance 1080 Weight 75.8 kg Intake: Oral 1080 Other: Voiding Method Toilet Toilet # Voids 3 1 - Exam GENERAL DESCRIPTION: Middle-age female lying in bed in no distress RESPIRATORY SYSTEM: Unlabored breathing , decreased breath sounds at bases HEART: S1 S2 regular rate and rhythm , ABDOMEN: Soft , no tenderness EXTREMITIES: No edema feet - Labs CBC & Chem 7: 08/04/24 05:04 08/04/24 05:04 Labs: Abnormal Lab Results - Last 24 Hours (Table) 08/04/24 08/04/24 Range/Units 05:04 05:04 WBC 3.43 L (4.50-10.00) X 10*3/uL RBC 2.52 L (4.10-5.20) X 10*6/uL Hgb 8.5 L (12.0-15.0) g/dL Hct 27.6 L (37.2-46.3) % MCV 109.5 H (80.0-97.0) FL MCH 33.7 H (27.0-32.0) pg MCHC 30.8 L (32.0-37.0) g/dL RDW 18.1 H (11.5-14.5) % Neutrophils # (Manual) 1.44 L (1.80-7.70) X 10*3/uL Eosinophils # (Manual) 0 L (0.04-0.35) X 10*3/uL NRBC/100 WBC Diff 0.06 H (0.00-0.01) X 10*3/uL Polychromasia 2+ A Anisocytosis (manual) 2+ A Macrocytosis (manual) 2+ A Tear Drop Cells 2+ A Elliptocytes 2+ A BUN <3.5 L (9.0-27.0) mg/dL Creatinine 0.5 L (0.6-1.5) mg/dL BUN/Creatinine Ratio <7.00 L (12.00-20.00) Ratio Calcium 8.2 L (8.7-10.3) mg/dL Microbiology - Last 24 Hours (Table) 07/30/24 05:32 Blood Culture - Final Blood 07/28/24 12:50 Stool Culture - Final Stool 07/29/24 17:41 Blood Culture - Final Blood Assessment and Plan (1) Ileitis, terminal Current Visit: Yes Status: Acute Code(s): K50.00 - CROHN'S DISEASE OF SMALL INTESTINE WITHOUT COMPLICATIONS SNOMED Code(s): 761540785 (2) Diarrhea Current Visit: Yes Status: Acute Priority: High Code(s): R19.7 - DIARRHEA, UNSPECIFIED SNOMED Code(s): 88172294 (3) Leukopenia Current Visit: No Status: Acute Code(s): D72.819 - DECREASED WHITE BLOOD CELL COUNT, UNSPECIFIED SNOMED Code(s): 81876871 (4) Cryptosporidiosis Current Visit: Yes Status: Acute Code(s): A07.2 - CRYPTOSPORIDIOSIS SNOMED Code(s): 218582193 Plan: 1patient presented to hospital with recurrent episode of nausea vomiting and diarrhea in this patient who recently tested negative for C. difficile she did have CT of abdominal pelvis done on 07/24/2024 that has been suggestive of ileitis and question of infectious/inflammatory etiology 2-patient stool culture came back negative, stool for C. difficile negative as well, stool cryptosporidium antigen came back positive 3positive blood culture with Staphylococcus hominis likely skin contamination, repeat blood culture have been negative, no need for antibiotics for the positive blood culture 4-patient mention slight decrease in frequency and has tolerated Questran which will be continued along with nitazoxanide 500 mg twice daily and monitor clinical course closely Dictation was produced using [employer] dictation software. please excuse any grammatical, word or spelling errors. Time with Patient: Less than 30
--- NOTE | 2024-08-05 14:53 | P.PN ---
Subjective Progress Note Date: 08/05/24 Principal diagnosis: Reason for follow-up is diarrhea/ileitis Patient is a 64-year-old female with a past medical history significant for coronary disease hypertension hyperlipidemia [place] reflux in this patient also with a history of lung cancer for the patient has been on chemotherapy with admission in the hospital concerning for acute nausea vomiting and diarrhea patient did have a negative C. difficile on the last admission about a week ago with a CT abdominal pelvis did show some mild small bowel dilatation without focal transition point and possible terminal ileum ileitis. On today's evaluation that is 08/05/2024, the patient continues to be afebrile, the patient is on room air and breathing comfortably, the Pt denies having any chest pain or cough, the patient denies having any abdominal pain no vomiting diarrhea frequency has decreased in intensity still loose. Patient white count is 3.43 creatinine 0.5 Objective - Vital Signs Vital signs: Vital Signs Temp 98.5 F 08/05/24 13:48 Pulse 86 08/05/24 13:48 Resp 16 08/05/24 13:48 BP 119/76 08/05/24 13:48 Pulse Ox 96 08/05/24 13:48 FiO2 21 07/28/24 07:37 Intake & Output 08/04/24 08/05/24 08/05/24 18:59 06:59 18:59 Intake Total 1080 Balance 1080 Weight 74.4 kg 74.4 kg Intake: Oral 1080 Other: Voiding Method Toilet # Voids 3 1 - Exam GENERAL DESCRIPTION: Middle-age female lying in bed in no distress RESPIRATORY SYSTEM: Unlabored breathing , decreased breath sounds at bases HEART: S1 S2 regular rate and rhythm , ABDOMEN: Soft , no tenderness EXTREMITIES: No edema feet - Labs CBC & Chem 7: 08/04/24 05:04 08/04/24 05:04 Labs: Microbiology - Last 24 Hours (Table) 08/04/24 18:25 Stool Culture - Preliminary Stool 07/30/24 05:32 Blood Culture - Final Blood 07/28/24 12:50 Stool Culture - Final Stool Assessment and Plan (1) Ileitis, terminal Current Visit: Yes Status: Acute Code(s): K50.00 - CROHN'S DISEASE OF SMALL INTESTINE WITHOUT COMPLICATIONS SNOMED Code(s): 619946200 (2) Diarrhea Current Visit: Yes Status: Acute Priority: High Code(s): R19.7 - DIARRHEA, UNSPECIFIED SNOMED Code(s): 86131639 (3) Leukopenia Current Visit: No Status: Acute Code(s): D72.819 - DECREASED WHITE BLOOD CELL COUNT, UNSPECIFIED SNOMED Code(s): 38081403 (4) Cryptosporidiosis Current Visit: Yes Status: Acute Code(s): A07.2 - CRYPTOSPORIDIOSIS SNOMED Code(s): 262653937 Plan: 1patient presented to hospital with recurrent episode of nausea vomiting and diarrhea in this patient who recently tested negative for C. difficile she did have CT of abdominal pelvis done on 07/24/2024 that has been suggestive of ileitis and question of infectious/inflammatory etiology 2-patient stool culture came back negative, stool for C. difficile negative as well, stool cryptosporidium antigen came back positive 3positive blood culture with Staphylococcus hominis likely skin contamination, repeat blood culture have been negative, no need for antibiotics for the positive blood culture 4-patient mention slight decrease in frequency and has tolerated Questran which will be continued, pharmacy is working on arranging further was arranged we will restart nitazoxanide 500 mg twice daily and monitor clinical course closely Dictation was produced using [employer] dictation software. please excuse any grammatical, word or spelling errors. Time with Patient: Less than 30
[2024-08-05] MEDS: CHOLESTYRAMINE (WITH SUGAR) 4 GM PACKET PO SCH (18:05)
[2024-08-05] MEDS: LOPERAMIDE 2 MG CAP PO PRN (20:55)
--- NOTE | 2024-08-06 06:51 | PN ---
PROGRESS NOTE DATE OF SERVICE: 08/05/2024 SUBJECTIVE: This is a 64-year-old woman, who was admitted with intractable diarrhea secondary to cryptosporidiosis, still have persistent diarrhea. CT scan showed some improvement. The patient required more frequent doses of Imodium at this time. OBJECTIVE: VITAL SIGNS: Pulse is 87, blood pressure 113/83, respirations 16. CHEST: Clear to auscultation. CARDIOVASCULAR: S1, S2. ABDOMEN: Soft. Mild diffuse discomfort. LABORATORY DATA: Noted. ASSESSMENT: 1. Intractable nausea, vomiting, diarrhea, possibly secondary to immunosuppression and acute cryptosporidiosis. 2. Acute ileitis, improving. 3. Dehydration. 4. Metastatic small-cell cancer, on treatment. 5. Hypertension. 6. Multiple complex medical issues. RECOMMENDATIONS AND DISCUSSION: Recommend to continue current management and continue symptomatic treatment. Recommend frequent Imodium and as well as increase the dose of Questran and advance diet. Repeat labs. Guarded prognosis because of multiple complex medical issues and further recommendations to follow. MMODL / IJN: [id number] /
[2024-08-06 08:45] LABS: Basophils # (A) 0.03 X 10*3/uL (0.00-0.10); Basophils % (A) 0.9 %; Eosinophils # (A) 0.01 X 10*3/uL (0.04-0.35); Eosinophils % (A) 0.3 %; HCT 29.7 % (37.2-46.3); HGB 9.1 g/dL (12.0-15.0); Lymphocytes # (A) 1.15 X 10*3/uL (0.90-5.00); Lymphocytes % (A) 32.8 %; MCH 33.5 pg (27.0-32.0); MCHC 30.6 g/dL (32.0-37.0); MCV 109.2 FL (80.0-97.0); Mean Platelet Volume 10.1 FL (9.5-12.2); Monocytes # (A) 0.65 X 10*3/uL (0.20-1.00); Monocytes % (A) 18.5 %; NRBC Per 100 WBC 0.04 X 10*3/uL (0.00-0.01); Neutrophils # (A) 1.58 X 10*3/uL (1.80-7.70); Neutrophils % (A) 44.9 %; Platelet Count 280 X 10*3/uL (140-440); RBC 2.72 X 10*6/uL (4.10-5.20); RDW 18.7 % (11.5-14.5); WBC 3.51 X 10*3/uL (4.50-10.00)
[2024-08-06 09:08] LABS: ALT 10 U/L (8-44); AST 16 U/L (13-35); Albumin 3.1 g/dL (3.8-4.9); Albumin/Globulin Ratio 1.29 Ratio (1.60-3.17); Alkaline Phosphatase 67 U/L (41-126); BUN/Creat Ratio <7.00 Ratio (12.00-20.00); Blood Urea Nitrogen <3.5 mg/dL (9.0-27.0); Calcium 8.4 mg/dL (8.7-10.3); Carbon Dioxide 22.5 mmol/L (21.6-31.8); Chloride 109 mmol/L (96-109); Globulin 2.4 g/dL (1.6-3.3); Glucose 89 mg/dL (70-110); Potassium 4.7 mmol/L (3.5-5.5); Sodium 142 mmol/L (135-145); Total Bilirubin 0.2 mg/dL (0.3-1.2); Total Protein 5.5 g/dL (6.2-8.2)
--- NOTE | 2024-08-06 12:18 | P.PN ---
Subjective Progress Note Date: 08/06/24 Principal diagnosis: Reason for follow-up is diarrhea/ileitis Patient is a 64-year-old female with a past medical history significant for coronary disease hypertension hyperlipidemia [place] reflux in this patient also with a history of lung cancer for the patient has been on chemotherapy with admission in the hospital concerning for acute nausea vomiting and diarrhea patient did have a negative C. difficile on the last admission about a week ago with a CT abdominal pelvis did show some mild small bowel dilatation without focal transition point and possible terminal ileum ileitis. On today's evaluation that is 08/06/2024, patient has been afebrile, patient is breathing comfortably and is currently on room air, patient denies having any significant cough no chest pain, patient denies nausea vomiting diarrhea frequency has slowed down slightly forming up abdominal pain improved per patient. Patient white count is 3.51 creatinine 0.5 Objective - Vital Signs Vital signs: Vital Signs Temp 98.4 F 08/06/24 07:39 Pulse 89 08/06/24 07:39 Resp 17 08/06/24 07:39 BP 130/77 08/06/24 07:39 Pulse Ox 97 08/06/24 07:39 FiO2 21 07/28/24 07:37 Intake & Output 08/05/24 08/06/24 08/06/24 18:59 06:59 18:59 Intake Total 500 Balance 500 Weight 74.4 kg 73.7 kg Intake: Oral 500 Other: Voiding Method Toilet Toilet # Voids 1 - Exam GENERAL DESCRIPTION: Middle-age female lying in bed in no distress RESPIRATORY SYSTEM: Unlabored breathing , decreased breath sounds at bases HEART: S1 S2 regular rate and rhythm , ABDOMEN: Soft , no tenderness EXTREMITIES: No edema feet - Labs CBC & Chem 7: 08/06/24 04:19 08/06/24 04:19 Labs: Abnormal Lab Results - Last 24 Hours (Table) 08/06/24 08/06/24 Range/Units 04:19 04:19 WBC 3.51 L (4.50-10.00) X 10*3/uL RBC 2.72 L (4.10-5.20) X 10*6/uL Hgb 9.1 L (12.0-15.0) g/dL Hct 29.7 L (37.2-46.3) % MCV 109.2 H (80.0-97.0) FL MCH 33.5 H (27.0-32.0) pg MCHC 30.6 L (32.0-37.0) g/dL RDW 18.7 H (11.5-14.5) % Immature Gran # 0.09 H (0.00-0.04) X 10*3/uL Neutrophils # 1.58 L (1.80-7.70) X 10*3/uL Eosinophils # 0.01 L (0.04-0.35) X 10*3/uL NRBC/100 WBC Diff 0.04 H (0.00-0.01) X 10*3/uL BUN <3.5 L (9.0-27.0) mg/dL Creatinine 0.5 L (0.6-1.5) mg/dL BUN/Creatinine Ratio <7.00 L (12.00-20.00) Ratio Calcium 8.4 L (8.7-10.3) mg/dL Total Bilirubin 0.2 L (0.3-1.2) mg/dL Total Protein 5.5 L (6.2-8.2) g/dL Albumin 3.1 L (3.8-4.9) g/dL Albumin/Globulin Ratio 1.29 L (1.60-3.17) Ratio Microbiology - Last 24 Hours (Table) 08/04/24 18:25 Stool Culture - Preliminary Stool Assessment and Plan (1) Ileitis, terminal Current Visit: Yes Status: Acute Code(s): K50.00 - CROHN'S DISEASE OF SMALL INTESTINE WITHOUT COMPLICATIONS SNOMED Code(s): 961973431 (2) Diarrhea Current Visit: Yes Status: Acute Priority: High Code(s): R19.7 - DIARRHEA, UNSPECIFIED SNOMED Code(s): 97351135 (3) Leukopenia Current Visit: No Status: Acute Code(s): D72.819 - DECREASED WHITE BLOOD CELL COUNT, UNSPECIFIED SNOMED Code(s): 90256078 (4) Cryptosporidiosis Current Visit: Yes Status: Acute Code(s): A07.2 - CRYPTOSPORIDIOSIS SNOMED Code(s): 678528412 Plan: 1patient presented to hospital with recurrent episode of nausea vomiting and diarrhea in this patient who recently tested negative for C. difficile she did have CT of abdominal pelvis done on 07/24/2024 that has been suggestive of ileitis and question of infectious/inflammatory etiology 2-patient stool culture came back negative, stool for C. difficile negative as well, stool cryptosporidium antigen came back positive 3positive blood culture with Staphylococcus hominis likely skin contamination, repeat blood culture have been negative, no need for antibiotics for the positive blood culture 4- pharmacy is working on arranging further doses of nitazoxanide 500 mg twice daily which will be restarted today once available and continue with the Questran for symptomatic relief Dictation was produced using [employer] dictation software. please excuse any grammatical, word or spelling errors. Time with Patient: Less than 30
[2024-08-06] MEDS: MAGNESIUM SULFATE-D5W PMX 1 GM in DEXTROSE/WATER 1 100ML.BAG IVPB ONE (14:30)
--- NOTE | 2024-08-06 21:07 | P.PN ---
Subjective Progress Note Date: 08/06/24 Principal diagnosis: N,V, Cryptosporidium diarrhea. On chemo for SCLC In f/u today pt reports 2 green, watery BMs, with some pieces of formed stool this AM. Still occ lower abd cramping before stool but, resolves after BM. Denies blood or mucus in the stool. No fever, cough, N,V, she is eating some, tolerating yogurt very well. Objective - Vital Signs Vital signs: Vital Signs Temp 98.5 F 08/06/24 19:25 Pulse 74 08/06/24 19:25 Resp 18 08/06/24 19:25 BP 121/82 08/06/24 19:25 Pulse Ox 97 08/06/24 19:25 FiO2 21 07/28/24 07:37 Intake & Output 08/06/24 08/06/24 08/07/24 06:59 18:59 06:59 Intake Total 500 1705 Balance 500 1705 Weight 73.7 kg Intake: Intake, IV Titration 925 Amount 0.9% NaCl with KCl 20 Meq 825 /l 1,000 ml @ 75 mls/hr IV .[id number] [facility] Rx#: [id number] Magnesium Sulfate-D5w Pmx 100 1 gm In Dextrose/Water 1 100ml.bag @ 100 mls/hr IVPB ONCE ONE Rx#: [id number] Oral 500 780 Other: Voiding Method Toilet # Bowel Movements 2 - Constitutional General appearance: Present: average body habitus, cooperative, no acute distress - EENT Eyes: Present: anicteric sclerae, EOMI ENT: Present: hearing grossly normal - Respiratory Respiratory: bilateral: CTA - Cardiovascular Rhythm: regular Heart sounds: normal: S1, S2 Abnormal Heart Sounds: Absent: systolic murmur, diastolic murmur, rub, S3 Gallop, S4 Gallop, click, other - Peripheral edema leg Peripheral Edema: bilateral: None - Gastrointestinal General gastrointestinal: Present: soft, tenderness - Neurologic Neurologic: Present: CNII-XII intact - Musculoskeletal Musculoskeletal: Present: strength equal bilaterally - Psychiatric Psychiatric: Present: A&O x's 3, appropriate affect, intact judgment & insight - Labs CBC & Chem 7: 08/06/24 04:19 08/06/24 04:19 Labs: Abnormal Lab Results - Last 24 Hours (Table) 08/06/24 08/06/24 Range/Units 04:19 04:19 WBC 3.51 L (4.50-10.00) X 10*3/uL RBC 2.72 L (4.10-5.20) X 10*6/uL Hgb 9.1 L (12.0-15.0) g/dL Hct 29.7 L (37.2-46.3) % MCV 109.2 H (80.0-97.0) FL MCH 33.5 H (27.0-32.0) pg MCHC 30.6 L (32.0-37.0) g/dL RDW 18.7 H (11.5-14.5) % Immature Gran # 0.09 H (0.00-0.04) X 10*3/uL Neutrophils # 1.58 L (1.80-7.70) X 10*3/uL Eosinophils # 0.01 L (0.04-0.35) X 10*3/uL NRBC/100 WBC Diff 0.04 H (0.00-0.01) X 10*3/uL BUN <3.5 L (9.0-27.0) mg/dL Creatinine 0.5 L (0.6-1.5) mg/dL BUN/Creatinine Ratio <7.00 L (12.00-20.00) Ratio Calcium 8.4 L (8.7-10.3) mg/dL Total Bilirubin 0.2 L (0.3-1.2) mg/dL Total Protein 5.5 L (6.2-8.2) g/dL Albumin 3.1 L (3.8-4.9) g/dL Albumin/Globulin Ratio 1.29 L (1.60-3.17) Ratio Microbiology - Last 24 Hours (Table) 08/04/24 18:25 Stool Culture - Preliminary Stool - Imaging and Cardiology CT scan - abdomen: report reviewed CT scan - pelvis: report reviewed Assessment and Plan (1) Diarrhea Current Visit: Yes Status: Acute Priority: High Code(s): R19.7 - DIARRHEA, UNSPECIFIED SNOMED Code(s): 46109843 (2) Small cell lung carcinoma Current Visit: Yes Status: Acute Priority: High Code(s): C34.90 - MALIGNANT NEOPLASM OF UNSP PART OF UNSP BRONCHUS OR LUNG SNOMED Code(s): 248392887 Plan: N/V/D, hypotension -Given fluid bolus and solu-cortef with resolution of hypotension. -N,V now resolved, pt doing well. Diet started, tolerating -CT AP on reporting resolution of partial obstruction. -ID cont to follow for cryptosporidium. Pt is on abx Chemo induced pancytopenia -WBC 3.5, ANC 1.58. GCSF was given on admit, this has been discontinued. WBC/ANC adequate at this time -Hgb stable at 9.1, transfuse for a Hgb 7 or if symptomatic -Thrombocytopenia resolved, plt normal Metastatic small cell lung cancer -Currently on treatment with carboplatin and irinotecan, completing cycle 3, day 1 on 07/04. Treatment will cont to be delayed until pt has recovered and rehabilitated from her acute conditions. Dose reduction has already been ordered
--- NOTE | 2024-08-07 06:03 | PN ---
PROGRESS NOTE DATE OF SERVICE: 08/06/2024 SUBJECTIVE: This is a 64-year-old woman, who was admitted with intractable nausea, vomiting, diarrhea, is improving. Symptoms improved. No chest pain. No palpitation. The patient is probably not getting enough Imodium. OBJECTIVE: VITAL SIGNS: Pulse is 89, blood pressure 140/74, respirations 16. CHEST: Clear to auscultation. CARDIOVASCULAR: S1, S2. ABDOMEN: Soft. LABORATORY DATA: Hemoglobin 9.1. ASSESSMENT: 1. Intractable nausea, vomiting, diarrhea, possibly secondary to immunosuppression and acute cryptosporidiosis. 2. Acute ileitis, improved. 3. Dehydration. 4. Metastatic small-cell lung cancer, on treatment. 5. Hypertension. 6. Multiple complex medical issues. RECOMMENDATIONS: Recommend to continue current management and continue symptomatic treatment. Repeat labs. Otherwise, closely follow with multiple consultants. Guarded prognosis. Further recommendations to follow. MMODL / IJN: [id number] /
[2024-08-07 08:45] LABS: Basophils # (A) 0.04 X 10*3/uL (0.00-0.10); Basophils % (A) 1.1 %; Eosinophils # (A) 0.04 X 10*3/uL (0.04-0.35); Eosinophils % (A) 1.1 %; HCT 30.1 % (37.2-46.3); HGB 9.2 g/dL (12.0-15.0); Lymphocytes # (A) 1.22 X 10*3/uL (0.90-5.00); MCH 34.6 pg (27.0-32.0); MCHC 30.6 g/dL (32.0-37.0); MCV 113.2 FL (80.0-97.0); Mean Platelet Volume 9.8 FL (9.5-12.2); Monocytes # (A) 0.51 X 10*3/uL (0.20-1.00); Monocytes % (A) 14.2 %; NRBC Per 100 WBC 0.03 X 10*3/uL (0.00-0.01); Neutrophils # (A) 1.73 X 10*3/uL (1.80-7.70); Neutrophils % (A) 48.2 %; Platelet Count 301 X 10*3/uL (140-440); RBC 2.66 X 10*6/uL (4.10-5.20); RDW 18.6 % (11.5-14.5); WBC 3.59 X 10*3/uL (4.50-10.00)
[2024-08-07 08:47] LABS: Magnesium 2.1 mg/dL (1.5-2.4)
[2024-08-07 08:50] LABS: BUN/Creat Ratio <7.00 Ratio (12.00-20.00); Blood Urea Nitrogen <3.5 mg/dL (9.0-27.0); Calcium 8.3 mg/dL (8.7-10.3); Chloride 111 mmol/L (96-109); Glucose 86 mg/dL (70-110); Potassium 4.8 mmol/L (3.5-5.5); Sodium 142 mmol/L (135-145)
--- NOTE | 2024-08-07 13:35 | P.PN ---
Subjective Progress Note Date: 08/07/24 Principal diagnosis: N,V, Cryptosporidium diarrhea. On chemo for SCLC In f/u today pt reports solid BM! Abd discomfort is minimal. No fever, N,V, she is eating and drinking. Objective - Vital Signs Vital signs: Vital Signs Temp 97.9 F 08/07/24 12:05 Pulse 82 08/07/24 12:05 Resp 18 08/07/24 12:05 BP 143/94 08/07/24 12:05 Pulse Ox 97 08/07/24 12:05 FiO2 21 07/28/24 07:37 Intake & Output 08/06/24 08/07/24 08/07/24 18:59 06:59 18:59 Intake Total 1705 Balance 1705 Weight 73.7 kg Intake: Intake, IV Titration 925 Amount 0.9% NaCl with KCl 20 Meq 825 /l 1,000 ml @ 75 mls/hr IV .[id number] [facility] Rx#: [id number] Magnesium Sulfate-D5w Pmx 100 1 gm In Dextrose/Water 1 100ml.bag @ 100 mls/hr IVPB ONCE ONE Rx#: [id number] Oral 780 Other: # Voids 2 # Bowel Movements 2 - Constitutional General appearance: Present: average body habitus, cooperative, no acute distress - EENT Eyes: Present: anicteric sclerae, edentulous ENT: Present: hearing grossly normal - Respiratory Details: resp even and unlabored, pt ambulatory independently - Cardiovascular Details: skin warm, well perfused - Peripheral edema leg Peripheral Edema: bilateral: None - Gastrointestinal General gastrointestinal: Present: soft - Integumentary Integumentary: Present: normal - Neurologic Neurologic: Present: CNII-XII intact - Musculoskeletal Musculoskeletal: Present: strength equal bilaterally - Psychiatric Psychiatric: Present: A&O x's 3, appropriate affect, intact judgment & insight - Labs CBC & Chem 7: 08/07/24 04:44 08/07/24 04:44 Labs: Abnormal Lab Results - Last 24 Hours (Table) 08/07/24 08/07/24 Range/Units 04:44 04:44 WBC 3.59 L (4.50-10.00) X 10*3/uL RBC 2.66 L (4.10-5.20) X 10*6/uL Hgb 9.2 L (12.0-15.0) g/dL Hct 30.1 L (37.2-46.3) % MCV 113.2 H (80.0-97.0) FL MCH 34.6 H (27.0-32.0) pg MCHC 30.6 L (32.0-37.0) g/dL RDW 18.6 H (11.5-14.5) % Immature Gran # 0.05 H (0.00-0.04) X 10*3/uL Neutrophils # 1.73 L (1.80-7.70) X 10*3/uL NRBC/100 WBC Diff 0.03 H (0.00-0.01) X 10*3/uL Chloride 111 H (96-109) mmol/L BUN <3.5 L (9.0-27.0) mg/dL Creatinine 0.5 L (0.6-1.5) mg/dL BUN/Creatinine Ratio <7.00 L (12.00-20.00) Ratio Calcium 8.3 L (8.7-10.3) mg/dL Microbiology - Last 24 Hours (Table) 08/04/24 18:25 Stool Culture - Preliminary Stool Assessment and Plan (1) Diarrhea Current Visit: Yes Status: Acute Priority: High Code(s): R19.7 - DIARRHEA, UNSPECIFIED SNOMED Code(s): 52307572 (2) Small cell lung carcinoma Current Visit: Yes Status: Acute Priority: High Code(s): C34.90 - MALIGNANT NEOPLASM OF UNSP PART OF UNSP BRONCHUS OR LUNG SNOMED Code(s): 463771406 Plan: N/V/D, hypotension -Given fluid bolus and solu-cortef with resolution of hypotension. -N,V resolved. Tolerating diet. -CT AP on the reporting resolution of partial obstruction. -ID cont to follow for cryptosporidium. Pt had a formed BM today. She cont on abx per ID Chemo induced pancytopenia -WBC 3.5, ANC 1.73. GCSF was given on admit, this has been discontinued. WBC/ANC adequate at this time -Hgb stable at 9.2, transfuse for a Hgb 7 or if symptomatic -Thrombocytopenia resolved, plt normal Metastatic small cell lung cancer -Currently on treatment with carboplatin and irinotecan, completing cycle 3, day 1 on 07/04. Treatment will cont to be delayed until pt has recovered and rehabilitated from her acute conditions,including abx for cryptosporidium. Dose reduction has already been ordered Pt ok from Hem/Onc standpoint for DC once cleared by Attending, ID and other Consulting MDs
--- NOTE | 2024-08-07 13:46 | P.PN ---
Subjective Progress Note Date: 08/07/24 Principal diagnosis: Reason for follow-up is diarrhea/ileitis Patient is a 64-year-old female with a past medical history significant for coronary disease hypertension hyperlipidemia DC reflux in this patient also with a history of lung cancer for the patient has been on chemotherapy with admission in the hospital concerning for acute nausea vomiting and diarrhea patient did have a negative C. difficile on the last admission about a week ago with a CT abdominal pelvis did show some mild small bowel dilatation without focal transition point and possible terminal ileum ileitis. On today's evaluation that is 08/07/2024, Patient is afebrile this morning patient denies having any chest pain shortness of breath or cough, the patient is currently on room air, patient denies any abdominal pain patient did have resolution of her diarrhea and did have a soft bowel movement today. Patient white count is 3.59 creatinine 0.5 Objective - Vital Signs Vital signs: Vital Signs Temp 97.9 F 08/07/24 12:05 Pulse 82 08/07/24 12:05 Resp 18 08/07/24 12:05 BP 143/94 08/07/24 12:05 Pulse Ox 97 08/07/24 12:05 FiO2 21 07/28/24 07:37 Intake & Output 08/06/24 08/07/24 08/07/24 18:59 06:59 18:59 Intake Total 1705 Balance 1705 Weight 73.7 kg Intake: Intake, IV Titration 925 Amount 0.9% NaCl with KCl 20 Meq 825 /l 1,000 ml @ 75 mls/hr IV .[id number] [facility] Rx#: [id number] Magnesium Sulfate-D5w Pmx 100 1 gm In Dextrose/Water 1 100ml.bag @ 100 mls/hr IVPB ONCE ONE Rx#: [id number] Oral 780 Other: # Voids 2 # Bowel Movements 2 - Exam GENERAL DESCRIPTION: Middle-age female lying in bed in no distress RESPIRATORY SYSTEM: Unlabored breathing , decreased breath sounds at bases HEART: S1 S2 regular rate and rhythm , ABDOMEN: Soft , no tenderness EXTREMITIES: No edema feet - Labs CBC & Chem 7: 08/07/24 04:44 08/07/24 04:44 Labs: Abnormal Lab Results - Last 24 Hours (Table) 08/07/24 08/07/24 Range/Units 04:44 04:44 WBC 3.59 L (4.50-10.00) X 10*3/uL RBC 2.66 L (4.10-5.20) X 10*6/uL Hgb 9.2 L (12.0-15.0) g/dL Hct 30.1 L (37.2-46.3) % MCV 113.2 H (80.0-97.0) FL MCH 34.6 H (27.0-32.0) pg MCHC 30.6 L (32.0-37.0) g/dL RDW 18.6 H (11.5-14.5) % Immature Gran # 0.05 H (0.00-0.04) X 10*3/uL Neutrophils # 1.73 L (1.80-7.70) X 10*3/uL NRBC/100 WBC Diff 0.03 H (0.00-0.01) X 10*3/uL Chloride 111 H (96-109) mmol/L BUN <3.5 L (9.0-27.0) mg/dL Creatinine 0.5 L (0.6-1.5) mg/dL BUN/Creatinine Ratio <7.00 L (12.00-20.00) Ratio Calcium 8.3 L (8.7-10.3) mg/dL Microbiology - Last 24 Hours (Table) 08/04/24 18:25 Stool Culture - Preliminary Stool Assessment and Plan (1) Ileitis, terminal Current Visit: Yes Status: Acute Code(s): K50.00 - CROHN'S DISEASE OF SMALL INTESTINE WITHOUT COMPLICATIONS SNOMED Code(s): 291592299 (2) Diarrhea Current Visit: Yes Status: Acute Priority: High Code(s): R19.7 - DIARRHEA, UNSPECIFIED SNOMED Code(s): 00348261 (3) Leukopenia Current Visit: No Status: Acute Code(s): D72.819 - DECREASED WHITE BLOOD CE LL COUNT, UNSPECIFIED SNOMED Code(s): 44975978 (4) Cryptosporidiosis Current Visit: Yes Status: Acute Code(s): A07.2 - CRYPTOSPORIDIOSIS SNOMED Code(s): 537612765 Plan: 1patient presented to hospital with recurrent episode of nausea vomiting and diarrhea in this patient who recently tested negative for C. difficile she did have CT of abdominal pelvis done on 07/24/2024 that has been suggestive of ileitis and question of infectious/inflammatory etiology 2-patient stool culture came back negative, stool for C. difficile negative as well, stool cryptosporidium antigen came back positive 3positive blood culture with Staphylococcus hominis likely skin contamination, repeat blood culture have been negative, no need for antibiotics for the positive blood culture 4-patient mention resolution of diarrhea have soft bowel movement she will continue with nitazoxanide 500 mg twice daily to finish a 2-week course of therapy Dictation was produced using [employer] dictation software. please excuse any grammatical, word or spelling errors. Time with Patient: Less than 30
[2024-08-07 21:21] VITALS: RESP 16
--- NOTE | 2024-08-08 04:21 | PN ---
PROGRESS NOTE DATE OF SERVICE: 08/07/2024 SUBJECTIVE: This is a 64-year-old woman, who was admitted with intractable nausea, vomiting, and diarrhea, had cryptosporidiosis, possibly secondary to immunosuppression chemotherapy. The patient is on Nitazoxanide. The diarrhea appears to be improving at this time. No chest pain. No palpitations. No fever. OBJECTIVE: VIAL SIGNS: Pulse is 82, blood pressure 143/94, respirations 18. CHEST: Clear to auscultation. CARDIOVASCULAR: S1, S2. ABDOMEN: Soft. NERVOUS SYSTEM: Nonfocal. LABORATORY DATA: Hemoglobin 9.2. Rest of the labs are noted. ASSESSMENT: 1. Intractable nausea, vomiting, diarrhea, possibly secondary to immunosuppression and acute cryptosporidiosis. 2. Acute ileitis, improving. 3. Dehydration, improving. 4. Metastatic small-cell lung cancer, on treatment. 5. Hypertension. 6. Multiple complex medical issues. RECOMMENDATIONS: Recommend to continue current medications, continue symptomatic treatment. Otherwise, at this time, I would recommend repeat labs. Advance her diet. Continue with Nitazoxanide. Closely follow with Infectious Disease and multiple other consultants. The patient might be able to be discharged in the next 24 hours if the diarrhea is controlled. MMODL / IJN: [id number] /
[2024-08-08 07:33] VITALS: BP 141/89; PULSE 88; TEMP 98.4
[2024-08-08 08:38] LABS: Basophils # (A) 0.06 X 10*3/uL (0.00-0.10); Basophils % (A) 1.4 %; Eosinophils # (A) 0.03 X 10*3/uL (0.04-0.35); Eosinophils % (A) 0.7 %; HCT 32.5 % (37.2-46.3); HGB 10.3 g/dL (12.0-15.0); Lymphocytes # (A) 1.18 X 10*3/uL (0.90-5.00); Lymphocytes % (A) 27.4 %; MCH 34.6 pg (27.0-32.0); MCHC 31.7 g/dL (32.0-37.0); MCV 109.1 FL (80.0-97.0); Mean Platelet Volume 9.7 FL (9.5-12.2); Monocytes # (A) 0.65 X 10*3/uL (0.20-1.00); Monocytes % (A) 15.1 %; NRBC Per 100 WBC 0.03 X 10*3/uL (0.00-0.01); Neutrophils # (A) 2.31 X 10*3/uL (1.80-7.70); Neutrophils % (A) 53.8 %; Platelet Count 346 X 10*3/uL (140-440); RBC 2.98 X 10*6/uL (4.10-5.20); RDW 18.5 % (11.5-14.5)
[2024-08-08 08:55] LABS: BUN/Creat Ratio <7.00 Ratio (12.00-20.00); Blood Urea Nitrogen <3.5 mg/dL (9.0-27.0); Calcium 8.6 mg/dL (8.7-10.3); Chloride 107 mmol/L (96-109); Glucose 94 mg/dL (70-110); Potassium 4.9 mmol/L (3.5-5.5); Sodium 140 mmol/L (135-145)
[2024-08-08 13:10] VITALS: BMI 35.6
--- NOTE | 2024-08-08 13:21 | P.PN ---
Subjective Progress Note Date: 08/08/24 Principal diagnosis: Reason for follow-up is diarrhea/ileitis Patient is a 64-year-old female with a past medical history significant for coronary disease hypertension hyperlipidemia IL reflux in this patient also with a history of lung cancer for the patient has been on chemotherapy with admission in the hospital concerning for acute nausea vomiting and diarrhea patient did have a negative C. difficile on the last admission about a week ago with a CT abdominal pelvis did show some mild small bowel dilatation without focal transition point and possible terminal ileum ileitis. On today's evaluation that is 08/08/2024,the patient denies any fever or any chills, patient is breathing comfortably on room air, the patient denies chest pain shortness of breath and no significant cough, patient denies abdominal pain, no nausea vomiting did have resolution of her diarrhea and mention did have 1 formed bowel movement today. Patient white count is 4.30, creatinine 0.5 Objective - Vital Signs Vital signs: Vital Signs Temp 98.4 F 08/08/24 07:32 Pulse 88 08/08/24 07:32 Resp 16 08/08/24 07:32 BP 141/89 08/08/24 07:32 Pulse Ox 97 08/08/24 07:32 FiO2 21 07/28/24 07:37 Intake & Output 08/07/24 08/08/24 08/08/24 18:59 06:59 18:59 Intake Total 590 Balance 590 Weight 85.5 kg Intake: Oral 590 Other: # Voids 3 2 - Exam GENERAL DESCRIPTION: Middle-age female lying in bed in no distress RESPIRATORY SYSTEM: Unlabored breathing , decreased breath sounds at bases HEART: S1 S2 regular rate and rhythm , ABDOMEN: Soft , no tenderness EXTREMITIES: No edema feet - Labs CBC & Chem 7: 08/08/24 04:54 08/08/24 04:54 Labs: Abnormal Lab Results - Last 24 Hours (Table) 08/08/24 08/08/24 Range/Units 04:54 04:54 WBC 4.30 L (4.50-10.00) X 10*3/uL RBC 2.98 L (4.10-5.20) X 10*6/uL Hgb 10.3 L (12.0-15.0) g/dL Hct 32.5 L (37.2-46.3) % MCV 109.1 H (80.0-97.0) FL MCH 34.6 H (27.0-32.0) pg MCHC 31.7 L (32.0-37.0) g/dL RDW 18.5 H (11.5-14.5) % Immature Gran # 0.07 H (0.00-0.04) X 10*3/uL Eosinophils # 0.03 L (0.04-0.35) X 10*3/uL NRBC/100 WBC Diff 0.03 H (0.00-0.01) X 10*3/uL BUN <3.5 L (9.0-27.0) mg/dL Creatinine 0.5 L (0.6-1.5) mg/dL BUN/Creatinine Ratio <7.00 L (12.00-20.00) Ratio Calcium 8.6 L (8.7-10.3) mg/dL Microbiology - Last 24 Hours (Table) 08/04/24 18:25 Stool Culture - Final Stool Assessment and Plan (1) Ileitis, terminal Status: Acute Code(s): K50.00 - CROHN'S DISEASE OF SMALL INTESTINE WITHOUT COMPLICATIONS SNOMED Code(s): 332524420 (2) Diarrhea Status: Acute Priority: High Code(s): R19.7 - DIARRHEA, UNSPECIFIED SNOMED Code(s): 47393743 (3) Leukopenia Status: Acute Code(s): D72.819 - DECREASED WHITE BLOOD CELL COUNT, UNSPECIFIED SNOMED Code(s): 46165007 (4) Cryptosporidiosis Status: Acute Code(s): A07.2 - CRYPTOSPORIDIOSIS SNOMED Code(s): 331252635 Plan: 1patient presented to hospital with recurrent episode of nausea vomiting and diarrhea in this patient who recently tested negative for C. difficile she did have CT of abdominal pelvis done on 07/24/2024 that has been suggestive of ileitis and question of infectious/inflammatory etiology 2-patient stool culture came back negative, stool for C. difficile negative as well, stool cryptosporidium antigen came back positive 3positive blood culture with Staphylococcus hominis likely skin contamination, repeat blood culture have been negative, no need for antibiotics for the positive blood culture 4-patient patient did have resolution of her diarrhea did have a soft/formed bowel movement today plans to continue nitazoxanide 500 mg twice daily to finish her course of therapy prescription was already called into the pharmacy Dictation was produced using [employer] dictation software. please excuse any grammatical, word or spelling errors. Time with Patient: Less than 30
== END 2024-08-08 13:15 | disposition home or self-care (01) | DRG 393 ==
LOC: EC 17:15 → 5NMEDONC 20:23 → OBSVTOIN 20:23 → 5NMEDONC 07-24 06:29
PROVIDERS: ADMIT Hospitalist; ATTEND Hospitalist
DX: K52.1 Toxic gastroenteritis and colitis (principal); D61.810 Antineoplastic chemotherapy induced pancytopenia; K50.00 Crohn's disease of small intestine without complications; C34.90 Malignant neoplasm of unspecified part of unspecified bronchus or lung; C79.31 Secondary malignant neoplasm of brain; A07.2 Cryptosporidiosis; E87.6 Hypokalemia; D70.1 Agranulocytosis secondary to cancer chemotherapy; E78.5 Hyperlipidemia, unspecified; E86.0 Dehydration; T45.1X5A Adverse effect of antineoplastic and immunosuppressive drugs, initial encounter; J44.9 Chronic obstructive pulmonary disease, unspecified; I11.0 Hypertensive heart disease with heart failure; K76.9 Liver disease, unspecified; I25.10 Atherosclerotic heart disease of native coronary artery without angina pectoris; I50.9 Heart failure, unspecified; I25.2 Old myocardial infarction; Z79.899 Other long term (current) drug therapy; Z79.82 Long term (current) use of aspirin; Z87.891 Personal history of nicotine dependence; Z95.5 Presence of coronary angioplasty implant and graft
CPT/HCPCS: 36415; 71046; 74021; 74176; 74177; 80048; 80053; 81001; 82533; 83605; 83630; 83735; 84132; 84484; 85025; 85610; 85730; 87040; 87045; 87046; 87077; 87102; 87186; 87324; 87328; 87329; 93005; 94760; 96361; 96365; 96366; 96372; 96375; 99285

== ENCOUNTER → 2024-08-20 | Outpatient (CLI) | payer BC, OTHER ==
--- NOTE | 2024-08-20 20:01 | MR ---
EXAMINATION TYPE: MR brain wo/w con DATE OF EXAM: 08/20/2024 COMPARISON: MRI brain June 02, 2024 HISTORY: Lung cancer with radiation, Evaluate for secondary neoplasm TECHNIQUE: Multiplanar, multisequence images of the brain and brainstem is performed without and with IV contras t, utilizing 7.5 mL intravenous Gadobutrol . FINDINGS: Diffusion weighted images demonstrate no evidence of a recent infarct or other diffusion ab normality. The ventricular system and cisternal spaces are normal in size and appearance. The brain volume is age appropriate. Persistent scattered moderate multifocal and confluent areas of T2 hyperin tensity throughout the white matter bilaterally. Suspect a few old lacunar infarcts including right a spect of [place] axial image 54 are redemonstrated. Midline structures redemonstrate normal morphology. The craniocervical junction remains within araceli l limits. Post contrast images now demonstrate 2 mm area of enhancement left lateral cerebellum next image 56 c orresponding to site of prior known larger ring-enhancing lesion on older studies. Additional punctat e 2 mm enhancement medial right temporal lobe axial image 57. Enhancing focus in the left frontal lob e on most recent study now is not clearly seen. The dural venous sinuses appear patent. The visualize d sinuses are clear and the globes are intact. IMPRESSION: Overall mixed response from most recent MRI as detailed above [facility], , 08/20/2024 7:59 PM
== END | disposition home or self-care (01) ==
LOC: RADMRIMAIN 18:57
PROVIDERS: ATTEND Radiology Radiation Oncology
DX: C79.31 Secondary malignant neoplasm of brain (principal); C34.91 Malignant neoplasm of unspecified part of right bronchus or lung
CPT/HCPCS: 70553; A9585

== ENCOUNTER → 2024-09-02 | Outpatient (CLI) | payer BC, OTHER ==
[2024-09-02 12:26] LABS: African American GFR (CKD) >90 (>60 ml/min/1.73 sqM); Blood Urea Nitrogen 6 mg/dL (7-17); Non-African American GFR(CKD) >90 (>60 ml/min/1.73 sqM)
--- NOTE | 2024-09-02 16:59 | CT ---
EXAMINATION TYPE: CT ChestAbdPelvis w con CT DLP: 1854 mGycm, Automated exposure control for dose reduction was used. DATE OF EXAM: 09/02/2024 2:11 PM COMPARISON: CT abdomen and pelvis 08/04/2024, 07/24/2024, CT chest abdomen pelvis 03/27/2024, 12/19/2023, 03/27/2024, 09/13/2023 CLINICAL INDICATION:Female, 64 years old with history of C34.90 LUNG CX; PHH, Hx lung ca Technique: Multiple axial images of the chest, abdomen, and pelvis were obtained following the intrav enous administration of 100 mL Isovue-300. Oral contrast was administered. Two-dimensional coronal an d sagittal reconstructions were obtained. Findings: CHEST: LUNGS/ PLEURA: Stable irregular mass within the anterior right upper lobe measuring 2.2 x 0.7 cm (ser ies 4, 17). Multiple enlarging nodules primarily within the right lung with stable left lower lobe 5 mm pulmonary nodule. Examples include a right lower lobe 1.1 cm nodule (series 4, image 24), previous ly measured 0.8 cm. Superior segment right lower lobe 7 mm nodule, previously 6 mm (series 4, image 28). Right perihilar 1.1 cm pulmonary nodule, previously 0.7 cm (series 4, image 34). No pleural effu riya, pneumothorax, focal consolidation. AIRWAY: Patent and unremarkable.. HEART: Size within normal limits.Trace pericardial effusion. Coronary artery calcifications. MEDIASTINUM: Mental mediastinal adenopathy with examples including a right paratracheal lymph node me asuring 2.2 cm (series 3, image 13) and a subcarinal lymph node measuring up to 1.2 cm (series 3, victorino ge 27). These demonstrate central low attenuation likely representing necrosis. VASCULATURE: No aortic aneurysm. 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 Mild atherosclerotic calcification of the aorta and its branches. MUSCULOSKELETAL: No acute osseous abnormalities. No aggressive osseous lesions. SOFT TISSUES/LYMPH NODES: Unremarkable. LOWER NECK: No significant findings. ABDOMEN: ABDOMEN LIVER: Stable posterior right hepatic lobe 7 mm cyst. Increasing size of posterior right hepatic lobe heterogenous lesion measuring 4.1 cm (series 3, image 54), previously measured 2.7 cm, and inferior right hepatic lobe 4.5 cm heterogenous lobulated lesion (series 3, image 68), previously measured 2.1 cm. New heterogenous posterior left hepatic lobe 2.8 cm lesion (series 3, image 56). GALLBLADDER AND BILE DUCTS: Unremarkable. PANCREAS: Unremarkable. SPLEEN: Unremarkable. ADRENAL GLANDS: Right adrenal gland is unremarkable. Increasing size of left adrenal gland nodule ever[place] suring up to 2.2 cm, previously 1.6 cm. KIDNEYS AND URETERS: No evidence of hydronephrosis or renal calculus. The kidneys enhance symmetrical ly. Stable left renal 1.3 cm cyst. PELVIS BLADDER: Under distended, limiting evaluation. REPRODUCTIVE: Unremarkable. ABDOMEN & PELVIS STOMACH AND BOWEL: Stomach and duodenum are unremarkable. Enteric contrast reaches the ileocecal junc tion. The appendix is within normal limits. A few scattered colonic diverticula without evidence for acute diverticulitis. No focal bowel wall thickening or surrounding inflammatory changes. No evidence of bowel obstruction. PERITONEUM: No evidence of pneumoperitoneum or free fluid. VASCULATURE: Moderate atherosclerotic calcifications are present throughout the abdominal aorta and i ts branches. No abdominal aortic aneurysm. MUSCULOSKELETAL: No acute osseous abnormalities . No aggressive osseous lesion. Osteoarthritic change s of the left hip. LYMPH NODES: No evidence for lymphadenopathy. SOFT TISSUE/ABDOMINAL WALL: Tiny fat filled umbilical hernia. IMPRESSION: Overall progression of disease with new and enlarging hepatic metastasis, increasing size of left adr enal gland metastasis, multiple new and enlarging pulmonary nodules, and metastatic mediastinal adeno shirley. [facility], , 09/02/2024 4:57 PM
== END | disposition home or self-care (01) ==
LOC: RADCTMAIN 11:47
PROVIDERS: ATTEND Internal Medicine Hematology & Oncology
DX: C34.90 Malignant neoplasm of unspecified part of unspecified bronchus or lung (principal); C79.72 Secondary malignant neoplasm of left adrenal gland; C78.7 Secondary malignant neoplasm of liver and intrahepatic bile duct; R91.8 Other nonspecific abnormal finding of lung field
CPT/HCPCS: 82565; 84520; 71260; 74177; 36415; Q9967

== ENCOUNTER → 2024-11-22 | Outpatient (CLI) | payer BC ==
[2024-11-23 06:21] LABS: ALT 24 U/L (8-44); AST 24 U/L (13-35); LDL Cholesterol,Calculated 89.1 mg/dL (0.0-131.0)
== END | disposition home or self-care (01) ==
LOC: LABWHC1 11:51
PROVIDERS: ATTEND Internal Medicine Interventional Cardiology
DX: E78.00 Pure hypercholesterolemia, unspecified (principal)
CPT/HCPCS: 36415; 80061; 84450; 84460

== ENCOUNTER → 2024-11-24 | Outpatient (CLI) | payer BC, OTHER ==
--- NOTE | 2024-11-24 12:49 | MR ---
EXAMINATION TYPE: MR brain wo/w con DATE OF EXAM: 11/24/2024 COMPARISON: Prior MRI brain September 20, 2023 HISTORY: Metastatic lung cancer. TECHNIQUE: Multiplanar, multisequence images of the brain and brainstem is performed without and with IV contras t, utilizing 7 mL intravenous Gadobutrol . FINDINGS: Diffusion weighted images demonstrate no evidence of a recent infarct or other diffusion ab normality. The ventricular system and cisternal spaces are normal in size and appearance. The brain volume is age appropriate. Persistent scattered moderate multifocal and confluent areas of T2 hyperin tensity throughout the white matter bilaterally. Suspect a few old lacunar infarcts including right a spect of [place] axial image 19 are redemonstrated. Midline structures redemonstrate normal morphology. The craniocervical junction remains within araceli l limits. Post contrast images now demonstrate no new areas of enhancement. Prior tiny areas of enhancement lef t aspect of cerebellum and right temporal lobe are now not clearly identified.. The dural venous sinu ses remain patent. The visualized sinuses are clear and the globes are intact. Increased fluid signal bilateral mastoid air cells are redemonstrated. IMPRESSION: Complete positive treatment response. No new or residual enhancing masses are identified on current study. [facility], , 11/24/2024 12:47 PM
== END | disposition home or self-care (01) ==
LOC: RADMRIMAIN 11:15
PROVIDERS: ATTEND Radiology Radiation Oncology
DX: C79.31 Secondary malignant neoplasm of brain (principal); C34.91 Malignant neoplasm of unspecified part of right bronchus or lung
CPT/HCPCS: 70553; A9585

== ENCOUNTER → 2024-12-12 | Outpatient (CLI) | payer BC ==
[2024-12-12 12:55] LABS: African American GFR (CKD) >90 (>60 ml/min/1.73 sqM); Blood Urea Nitrogen 12 mg/dL (7-17); Non-African American GFR(CKD) >90 (>60 ml/min/1.73 sqM)
--- NOTE | 2024-12-12 14:58 | CT ---
EXAMINATION TYPE: CT ChestAbdPelvis w con DATE OF EXAM: 12/12/2024 2:32 PM COMPARISON: 09/02/2024. CLINICAL INDICATION: Female, 64 years old with history of C34.901 MALIGNANT NEOPLASM OF UNSP PART OF UNSP BR; [facility], f/u lung ca Technique: CT ChestAbdPelvis w con; Multiple axial images were obtained. Two-dimensional coronal and sagittal reconstructions were obtained. Contrast used:100 ml mL of Isovue 300 with IV Contrast, (None if empty) Oral contrast used: with Oral Contrast CT DLP: 1036.9 mGycm, Automated exposure control for dose reduction was used. Findings: CHEST: LUNGS/ PLEURA: There is increased soft tissue fullness of abnormalities within the lung including the right upper lobe anterior consolidation possibly representing atelectasis given some rightward shift of the mediastinum. More inferiorly in the right middle lobe there is increase in size of only nodul e measuring 15 mm previously 6 mm series 3 image 34. Increased size of right lower lobe anterior mass now measuring 15 x 16 mm previously up to 10 mm. Few scattered other nodules are present in the righ t lower lung near the diaphragm measuring up to 15 mm previously 12. Medially multiple nodules are se en in the right lower lobe lung. Trace right pleural effusion present. AIRWAY: Patent and unremarkable.. HEART: Size within normal limits.Trace pericardial effusion. Moderate Coronary artery calcifications. MEDIASTINUM: Necrotic lymph node in the right high paratracheal region measuring 16 mm in short axis previously 21 mm. A left high paratracheal lymph node has increased in size measuring 11 mm in short axis, previou sly 6 mm. More inferiorly right paratracheal lymph node measuring 14 mm short axis previously 9. Lanre lomerate soft tissue near the enrike at the trachea bifurcation not significantly changed. Subcarinal lymph node measuring 16 mm in short axis previously 12. Increased right perihilar lymph node/mass me asuring 15 mm VASCULATURE: No aortic aneurysm. 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 Mild atherosclerotic calcification of the aorta and its branches. MUSCULOSKELETAL: r sternal sclerotic lesion now present measuring 10 mm series 10 image 67. SOFT TISSUES/LYMPH NODES: There is no lymph nodes which are enlarged in the left axilla the largest m easuring up to 13 mm in short axis. There is at least 4 enlarged lymph nodes present. LOWER NECK: No significant findings. ABDOMEN: LIVER: Enlarging hepatic dominant mass measuring up to 7.8 cm appears to 4.1. More posteriorly measur ing 2.6 mm previously 7. More medially measuring 28 mm previously 15 mm. Inferiorly conglomerate mass measuring up to 6.5 cm previously 4.5. GALLBLADDER AND BILE DUCTS: Unremarkable. PANCREAS: Unremarkable. SPLEEN: Unremarkable. ADRENAL GLANDS: Right adrenal gland is unremarkable. Increasing size of left adrenal gland mass now 3 .5 cm previously 2.2 cm. KIDNEYS AND URETERS: No evidence of hydronephrosis or renal calculus. The kidneys enhance symmetrical ly. Stable left renal 1.3 cm cyst. PELVIS BLADDER: Under distended, limiting evaluation. REPRODUCTIVE: Unremarkable. ABDOMEN & PELVIS STOMACH AND BOWEL: The stomach and duodenum are unremarkable. The appendix is within normal limits. F ew scattered colonic diverticula remain present. No focal bowel wall thickening or surrounding inflam matory changes. No evidence of bowel obstruction. PERITONEUM: No evidence of pneumoperitoneum or free fluid. VASCULATURE: Moderate atherosclerotic calcifications are present throughout the abdominal aorta and i ts branches. No abdominal aortic aneurysm. MUSCULOSKELETAL: Comparison abdominal bone appearance at L4 and L5 and T12 vertebral body. Severe deg eneration changes of left hip with sclerosis and joint space narrowing. LYMPH NODES: No evidence for lymphadenopathy. SOFT TISSUE/ABDOMINAL WALL: Tiny fat filled umbilical hernia. IMPRESSION: 1. Overall progression of disease with new and increasing size of pulmonary nodules. Additionally, t here is left axillary lymphadenopathy which is new on today's exam. Additionally, interval enlargemen t of the multiple (greater than 5) hepatic metastasis, increasing size of left adrenal gland mass, an d metastatic mediastinal adenopathy. 2. Evidence of osseous metastatic disease particularly at L4 and L5 and on the sternum is new. [facility], , 12/12/2024 2:56 PM
== END | disposition home or self-care (01) ==
LOC: RADCTMAIN 11:59
PROVIDERS: ATTEND Internal Medicine Hematology & Oncology
DX: C34.90 Malignant neoplasm of unspecified part of unspecified bronchus or lung (principal); C78.7 Secondary malignant neoplasm of liver and intrahepatic bile duct; C79.72 Secondary malignant neoplasm of left adrenal gland; C79.51 Secondary malignant neoplasm of bone; R91.8 Other nonspecific abnormal finding of lung field; R59.0 Localized enlarged lymph nodes; K42.9 Umbilical hernia without obstruction or gangrene; Z71.3 Dietary counseling and surveillance
CPT/HCPCS: 82565; 84520; 71260; 74177; 36415; Q9967

== ENCOUNTER 2025-02-20 22:23 | Inpatient (IN) | payer BC, OTHER ==
--- NOTE | 2025-02-20 23:01 | ED ---
General Adult HPI - General Chief complaint: Weakness Stated complaint: Weakness,Vomiting-Chemo Time Seen by Provider: 02/20/25 22:30 Source: patient Mode of arrival: wheelchair Limitations: no limitations - History of Present Illness Initial comments: Dictation was produced using [employer] dictation software. please excuse any grammatical, word or spelling errors. Chief Complaint: 64-year-old female with weakness and poor oral intake History of Present Illness: Patient is 64-year-old female with advanced lung cancer. Has been undergoing chemotherapy. Last chemotherapy treatment was 1 week ago. Presents to the ER today for approximately 10 days of weakness. States that she is unable to keep any food down due to significant nausea and vomiting. States that her emesis is nonbilious nonbloody. Denies any pain complaints. The ROS documented in this emergency department record has been reviewed and confirmed by me. Those systems with pertinent positive or negative responses have been documented in the HPI. All other systems are other negative and/or noncontributory. - Related Data Home Medications Medication Instructions Recorded Confirmed Aspirin 81 mg PO DAILY 07/29/14 11/21/24 Carvedilol 25 mg PO BID 07/29/14 11/21/24 Furosemide [Lasix] 20 mg PO DAILY 08/14/23 11/21/24 Hydrocortisone 10 mg PO DAILY 07/04/24 11/21/24 Magnesium Oxide [Mag-Ox] 400 mg PO DAILY 07/04/24 11/21/24 Potassium Chloride ER [K-Dur 20] 20 meq PO DAILY 07/04/24 11/21/24 Albuterol Nebulized [Ventolin 2.5 mg INHALATION RT-QID PRN 07/18/24 11/21/24 Nebulized] Atorvastatin [Lipitor] 40 mg PO DAILY 07/18/24 11/21/24 Hydrocortisone 5 mg PO HS 07/18/24 11/21/24 Memantine [Namenda] 10 mg PO BID 07/18/24 11/21/24 lisinopriL [Zestril] 5 mg PO DAILY 07/18/24 11/21/24 Previous Rx's Medication Instructions Recorded Ondansetron [Zofran] 4 mg PO Q4HR PRN #45 tab 07/30/23 Cholestyramine (with Sugar) 4 gm PO BID@1000,1800 15 Days #30 07/20/24 [Questran Packet] packet Nitazoxanide [Alinia] 500 mg PO BID #20 tablet 07/30/24 Allergies Allergy/AdvReac Type Severity Reaction Status Date / Time No Known Allergies Allergy Verified 02/20/25 22:29 Review of Systems ROS Statement: Those systems with pertinent positive or pertinent negative responses have been documented in the HPI. ROS Other: All systems not noted in ROS Statement are negative. Past Medical History Past Medical History: Coronary Artery Disease (CAD), Cancer, Heart Failure, GERD/Reflux, Hyperlipidemia, Hypertension, Myocardial Infarction (MN) Additional Past Medical History / Comment(s): VOCAL CORD POLYP, lung cancer Last Myocardial Infarction Date:: 2011 History of Any Multi-Drug Resistant Organisms: None Reported Past Surgical History: Heart Catheterization With Stent, Tonsillectomy, Tubal Ligation Additional Past Surgical History / Comment(s): JHON R.K. SX, VOCAL CHORD POLYPS REMOVED x2 Past Anesthesia/Blood Transfusion Reactions: No Reported Reaction Date of Last Stent Placement:: UNK Past Psychological History: No Psychological Hx Reported Smoking Status: Never smoker Past Alcohol Use History: None Reported Past Drug Use History: None Reported - Past Family History Sister(s) Family Medical History: Cancer General Exam - General Exam Comments Initial Comments: PHYSICAL EXAM: General Impression: Alert and oriented x3, not in acute distress HEENT: Normocephalic atraumatic, extra-ocular movements intact, pupils equal and reactive to light bilaterally, mucous membranes moist. 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 sent in by a medical professional or institution (, PA, REGISTERED CLIENT ASSOCIATE, urgent care, hospital, or residential...) When possible be specific @ -No Did you speak to anyone other than the patient for history (EMS, parent, family, police, friend...)? What history was obtained from this source @ -No Did you review nursing and triage notes (agree or disagree)? Why? @ -I reviewed and agree with nursing and triage notes Were old charts reviewed (outside hosp., previous admission, EMS record, old EKG, old radiological studies, urgent care reports/EKG's, residential records)? Report findings @ -No old charts were reviewed Differential Diagnosis (chest pain, altered mental status, abdominal pain women, abdominal pain men, vaginal bleeding, musculoskeletal, weakness, fever, dyspnea, syncope, headache, dizziness, GI bleed, back pain, seizure, CVA, palpatations, mental health)? @ -Differential Weakness: Hypoglycemia, shock, sepsis, hyponatremia, anemia, infection, MN, ETOH, adverse medicine reaction, overdose, stroke, this is not meant to be an all-inclusive list. EKG interpreted by me (3pts min.). @ -See above X-rays interpreted by me (1pt min.). @ -None done CT interpreted by me (1pt min.). @ -None done U/S interpreted by me (1pt. min.). @ -None done What testing was considered but not performed or refused? (CT, X-rays, U/S, labs)? Why? @ -None What meds were considered but not given or refused? Why? @ -None Was smoking cessation discussed for >3mins.? @ -No Were there social determinants of health that impacted care today? How? (Homelessness, low income, unemployed, alcoholism, drug addiction, transportation, low edu. Level, literacy, decrease access to med. care, usp, rehab)? @ -No Was there de-escalation of care discussed even if they declined (Discuss DNR or withdrawal of care, Hospice)? DNR status @ -No What co-morbidities impacted this encounter? (DM, HTN, Smoking, COPD, CAD, Cancer, CVA, ARF, Chemo, Hep., AIDS, mental health diagnosis, sleep apnea, morbid obesity)? @ -History of breast cancer and chemotherapy treatment Was patient admitted / discharged? Hospital course, mention meds given and route, prescriptions, significant lab abnormalities, going to OR and other pertinent info. @ -64-year-old breast cancer patient recent chemotherapy treatment presents to the ER for poor oral intake, dehydration and generalized weakness. Vital signs shows tachycardia. Rest of vital signs within acceptable limits. Laboratory evaluations shows dehydration. Patient having worsening oral intake will be admitted for IV hydration and oncology consultation. Did you discuss the management of the patient with other professionals (professionals i.e. , PA, REGISTERED CLIENT ASSOCIATE, lab, RT, psych nurse, social worker masters, high wire artist, teacher, protective officer, protective services case worker)? Give summary @ -Case discussed with hospitalist for admission Was critical care preformed (if so, how long)? @ -No Undiagnosed new problem with uncertain prognosis? @ -No Drug Therapy requiring intensive monitoring for toxicity (Heparin, Nitro, Insulin, Cardizem)? @ -No Were any procedures done? @ -No Diagnosis/symptom? Acute, or Chronic, or Acute on Chronic? Uncomplicated (without systemic symptoms) or Complicated (systemic symptoms)? @ -Dehydration Side effects of treatment? @ -No Exacerbation, Progression, or Severe Exacerbation? @ -No Poses a threat to life or bodily function? How? (Chest pain, USA, MN, pneumonia, PE, COPD, DKA, ARF, appy, cholecystitis, CVA, Diverticulitis, Homicidal, Suicidal, threat to staff... and all critical care pts) @ -yes - Lab Data Result diagrams: 02/20/25 23:46 02/20/25 23:46 Lab Results 02/20/25 02/20/25 02/20/25 Range/Units 23:46 23:46 23:46 WBC 8.19 (4.50-10.00) 10*3/uL RBC 3.54 L (4.10-5.20) 10*6/uL Hgb 11.1 L (12.0-15.0) g/dL Hct 33.6 L (37.2-46.3) % MCV 94.9 (80.0-97.0) fL MCH 31.4 (27.0-32.0) pg MCHC 33.0 (32.0-37.0) g/dL Plt Count 157 (140-440) 10*3/uL MPV 10.1 (9.5-12.2) fL Immature Gran % (Auto) 0.4 % Neutrophils % 78.2 % Lymphocytes % 8.8 % Monocytes % 2.9 % Eosinophils % 8.8 % Basophils % 0.9 % Immature Gran # 0.03 (0.00-0.04) 10*3/uL Neutrophils # 6.41 (1.80-7.70) 10*3/uL Lymphocytes # 0.72 L (0.90-5.00) 10*3/uL Monocytes # 0.24 (0.20-1.00) 10*3/uL Eosinophils # 0.72 H (0.04-0.35) 10*3/uL Basophils # 0.07 (0.00-0.10) 10*3/uL PT 13.8 H (10.0-12.5) sec INR 1.3 H (<1.2) APTT 23.0 (22.0-30.0) sec Sodium 133 L (137-145) mmol/L Potassium 3.1 L (3.5-5.1) mmol/L Chloride 94 L (98-107) mmol/L Carbon Dioxide 32 H (22-30) mmol/L Anion Gap 7 mmol/L BUN 18 H (7-17) mg/dL Creatinine 0.39 L (0.52-1.04) mg/dL Est GFR (CKD-EPI)AfAm >90 (>60 ml/min/1.73 sqM) Est GFR (CKD-EPI)NonAf >90 (>60 ml/min/1.73 sqM) Glucose 86 (74-99) mg/dL Plasma Lactic Acid [place] (0.7-2.0) mmol/L Calcium 9.0 (8.4-10.2) mg/dL Magnesium 1.8 (1.6-2.3) mg/dL Total Bilirubin 1.1 (0.2-1.3) mg/dL AST 237 H (14-36) U/L ALT 216 H (4-34) U/L Alkaline Phosphatase 137 H (38-126) U/L Troponin I (0.000-0.034) ng/mL Total Protein 5.9 L (6.3-8.2) g/dL Albumin 3.1 L (3.5-5.0) g/dL Urine Color Urine Appearance (Clear) Urine pH (5.0-8.0) Ur Specific [place] (1.001-1.035) Urine Protein (Negative) Urine Glucose (UA) (Negative) Urine Ketones (Negative) Urine Blood (Negative) Urine Nitrite (Negative) Urine Bilirubin (Negative) Urine Urobilinogen (<2.0) mg/dL Ur Leukocyte Esterase (Negative) Urine RBC (0-5) /hpf Urine WBC (0-5) /hpf Ur Squamous Epith Cells (0-4) /hpf Urine Bacteria (None) /hpf Urine Mucus (None) /hpf 02/20/25 02/20/25 02/21/25 Range/Units 23:46 23:46 00:20 WBC (4.50-10.00) 10*3/uL RBC (4.10-5.20) 10*6/uL Hgb (12.0-15.0) g/dL Hct (37.2-46.3) % MCV (80.0-97.0) fL MCH (27.0-32.0) pg MCHC (32.0-37.0) g/dL Plt Count (140-440) 10*3/uL MPV (9.5-12.2) fL Immature Gran % (Auto) % Neutrophils % % Lymphocytes % % Monocytes % % Eosinophils % % Basophils % % Immature Gran # (0.00-0.04) 10*3/uL Neutrophils # (1.80-7.70) 10*3/uL Lymphocytes # (0.90-5.00) 10*3/uL Monocytes # (0.20-1.00) 10*3/uL Eosinophils # (0.04-0.35) 10*3/uL Basophils # (0.00-0.10) 10*3/uL PT (10.0-12.5) sec INR (<1.2) APTT (22.0-30.0) sec Sodium (137-145) mmol/L Potassium (3.5-5.1) mmol/L Chloride (98-107) mmol/L Carbon Dioxide (22-30) mmol/L Anion Gap mmol/L BUN (7-17) mg/dL Creatinine (0.52-1.04) mg/dL Est GFR (CKD-EPI)AfAm (>60 ml/min/1.73 sqM) Est GFR (CKD-EPI)NonAf (>60 ml/min/1.73 sqM) Glucose (74-99) mg/dL Plasma Lactic Acid [place] 1.8 (0.7-2.0) mmol/L Calcium (8.4-10.2) mg/dL Magnesium (1.6-2.3) mg/dL Total Bilirubin (0.2-1.3) mg/dL AST (14-36) U/L ALT (4-34) U/L Alkaline Phosphatase (38-126) U/L Troponin I 0.013 (0.000-0.034) ng/mL Total Protein (6.3-8.2) g/dL Albumin (3.5-5.0) g/dL Urine Color Yellow Urine Appearance Cloudy H (Clear) Urine pH 6.0 (5.0-8.0) Ur Specific [place] 1.019 (1.001-1.035) Urine Protein Trace H (Negative) Urine Glucose (UA) Negative (Negative) Urine Ketones 1+ H (Negative) Urine Blood Negative (Negative) Urine Nitrite Negative (Negative) Urine Bilirubin 1+ H (Negative) Urine Urobilinogen 6.0 (<2.0) mg/dL Ur Leukocyte Esterase Negative (Negative) Urine RBC 1 (0-5) /hpf Urine WBC 5 (0-5) /hpf Ur Squamous Epith Cells 7 H (0-4) /hpf Urine Bacteria Rare H (None) /hpf Urine Mucus Moderate H (None) /hpf Disposition Clinical Impression: Dehydration Disposition: ADMITTED IP TO THIS [facility] Condition: Fair Referrals: Hari Navarrete DO [Primary Care Provider] - 1-2 days Decision Time: 01:25
[2025-02-20 23:58] LABS: Basophils # (A) 0.07 10*3/uL (0.00-0.10); Basophils % (A) 0.9 %; Eosinophils # (A) 0.72 10*3/uL (0.04-0.35); Eosinophils % (A) 8.8 %; HCT 33.6 % (37.2-46.3); HGB 11.1 g/dL (12.0-15.0); Lymphocytes # (A) 0.72 10*3/uL (0.90-5.00); Lymphocytes % (A) 8.8 %; MCH 31.4 pg (27.0-32.0); MCV 94.9 fL (80.0-97.0); Mean Platelet Volume 10.1 fL (9.5-12.2); Monocytes # (A) 0.24 10*3/uL (0.20-1.00); Monocytes % (A) 2.9 %; Neutrophils # (A) 6.41 10*3/uL (1.80-7.70); Neutrophils % (A) 78.2 %; Platelet Count 157 10*3/uL (140-440); RBC 3.54 10*6/uL (4.10-5.20); RDW 19.1 % (11.5-14.5); WBC 8.19 10*3/uL (4.50-10.00)
[2025-02-21 00:16] LABS: INR 1.3 (<1.2); Prothrombin Time 13.8 sec (10.0-12.5)
[2025-02-21 00:23] LABS: ALT 216 U/L (4-34); AST 237 U/L (14-36); African American GFR (CKD) >90 (>60 ml/min/1.73 sqM); Albumin 3.1 g/dL (3.5-5.0); Alkaline Phosphatase 137 U/L (38-126); Anion Gap 7 mmol/L; Blood Urea Nitrogen 18 mg/dL (7-17); Carbon Dioxide 32 mmol/L (22-30); Chloride 94 mmol/L (98-107); Glucose 86 mg/dL (74-99); Magnesium 1.8 mg/dL (1.6-2.3); Non-African American GFR(CKD) >90 (>60 ml/min/1.73 sqM); Potassium 3.1 mmol/L (3.5-5.1); Sodium 133 mmol/L (137-145); Total Bilirubin 1.1 mg/dL (0.2-1.3); Total Protein 5.9 g/dL (6.3-8.2)
[2025-02-21 00:43] LABS: Appearance,Urine Cloudy (Clear); Bacteria,Urine Rare /hpf; Bilirubin,Urine 1+ (Negative); Blood,Urine Negative (Negative); Color,Urine Yellow; Glucose,Urine (UA) Negative (Negative); Ketones,Urine 1+ (Negative); Leukocyte Esterase,Urine Negative (Negative); Mucus,Urine Moderate /hpf; Nitrite,Urine Negative (Negative); Protein,Urine Trace (Negative); RBC,Urine 1 /hpf (0-5); Specific Gravity,Urine 1.019 (1.001-1.035); Squamous Epithelial Cell,Urine 7 /hpf (0-4); WBC,Urine 5 /hpf (0-5)
[2025-02-21] MEDS ORDERED: ACETAMINOPHEN TAB 325 MG TAB PO PRN (01:21)
[2025-02-21] MEDS ORDERED: NALOXONE 0.4 MG/ML 1 ML VIAL IV PRN (01:21)
[2025-02-21] MEDS: SODIUM CHLORIDE 0.9% 1,000 ML IV SCH (01:30)
[2025-02-21] MEDS: ONDANSETRON 4 MG/2 ML VIAL IVP PRN (09:50)
[2025-02-21] MEDS ORDERED: RX INFO: IV CONTRAST WAS GIVEN 1 EACH MISC MISCELLANE PRN (14:40)
[2025-02-21] MEDS ORDERED: IOPAMIDOL CONTRAST (ORAL USE) VIAL PO PRN (14:40)
--- NOTE | 2025-02-21 14:47 | P.CONS ---
History of Present Illness - Reason for Consult Consult date: 02/21/25 SCLC, on treatment Requesting physician: Fantasma Orona - Chief Complaint anorexia, dehydration, vomiting - History of Present Illness Ms. Underwood is a pleasant 64 yo female pt of Dr. Thornton with a Hx of SCLC diagnosed late 2022. She was initially seen at [facility] 07/19/23 for abn findings on CT chest w/wo 07/10/23. She came to hospital for progressive SOB since Sept after being diagnosed with Covid. The CT reported rt pl effusion, septal thickening with ground glass opacities, RLL nodule, conglomerate mediastinal LAD, subcarinal mass 5.6 x 3.4 cm, microinvasion of the esophagus is not excluded, AP LN 18mm, prevascular space LN 5.1 x 2.2 cm, scattered lesions throughout liver largest measuring 2.8 cm in rt hepatic lobe, and 3.2cm in lt hepatic lobe, gastric hepatic LN measuring 7mm, nodular changes to adrenal glands. CTA was neg for PE, reported concerning findings most consistent with CT chest report. She had a bronch and biopsy with Dr. Moura 07/18/23 path positive for SCLC from rt mainstem transbronchial biopsy, synaptophysin, CD56 positive, Ki67 proliferative index greater then 20% of tumor cells. Station 4R and washings were non- diagnostic, rt mainstem brushings were suggestive of sm cell carcinoma. She was briefly intubated post bronch. Brain MRI showed a small focus of enhancement in lt frontal lobe measuring 5mm, she was asymptomatic from the same. CT AP reported multiple hepatic lesions, no ductal dilation, renal cortical cysts, non-specific thickening of bilateral adrenal glands, no ann marie mets. Because of symptoms and plans for rehab after prolonged hospitalization (admi 07/10-07/31), she did receive 1st cycle of carbo/GENERAL WORKER inpt, which she tolerated very well, no significant SE or heme toxicities. She was discharged and went to rehab for 1 week. 6 cycles of carboplatin and GENERAL WORKER-16, completing those on 12/07/23. Tecentriq was added on with cycle 5 onwards. She was unable to receive it with the first 4 cycles, due to insurance issues. She was then continued on immunotherapy alone. Repeat MRI ordered by radiation oncology in early 04/09 unfortunately, showed development of brain metastases. CT CAP also showed progression, with development of multiple new lung nodules, progressive mediastinal adenopathy, as well as progressive disease in the liver. She completed WBRT and was started on carbo/irinotecan 04/22/24. Pt did well until she was having severe vomiting and diarrhea Jul 2024. She was diagnosed with Cryptosporidium enterocolitis. The patient improved gradually with aggressive supportive care and antibiotic treatment, she completed antibiotics early Aug 2024. After obtaining clearance from ID, she was started back on chemotherapy with cycle 4, on 09/12/24 with dose reduction and PEG G-CSF support. She completed [address] scans done subsequently at the end of 12/[address] Thornton discussed treatment options, including comfort care, pt opted for active treatment, and was started on Lurbinectedin 01/05/25. She is status post 3 cycles, due for treatment restaging scans in 3 days. Pt brought to hospital by family with c/o anorexia, no oral inteake for about 3 days, vomiting without nausea, SOB at rest, generalized weakness, family reporting significant wt loss. Pt did not have fevers, chest pain, abd pain, acute changes in bowel or bladder, no rash or swelling. Review of Systems 10 point ROS is neg except as stated in HPI Past Medical History Past Medical History: Coronary Artery Disease (CAD), Cancer, Heart Failure, GERD/Reflux, Hyperlipidemia, Hypertension, Myocardial Infarction ([place]) Additional Past Medical History / Comment(s): VOCAL CORD POLYP, lung cancer Last Myocardial Infarction Date:: 2011 History of Any Multi-Drug Resistant Organisms: None Reported Past Surgical History: Heart Catheterization With Stent, Tonsillectomy, Tubal Ligation Additional Past Surgical History / Comment(s): JHON R.K. SX, VOCAL CHORD POLYPS REMOVED x2 Past Anesthesia/Blood Transfusion Reactions: No Reported Reaction Date of Last Stent Placement:: UNK Past Psychological History: No Psychological Hx Reported Smoking Status: Never smoker Past Alcohol Use History: None Reported Past Drug Use History: None Reported - Past Family History Sister(s) Family Medical History: Cancer Medications and Allergies Home Medications Medication Instructions Recorded Confirmed Type Carvedilol 25 mg PO BID 07/29/14 02/21/25 History Memantine [Namenda] 10 mg PO BID 07/18/24 02/21/25 History ALPRAZolam [Xanax] 0.5 mg PO BID 02/21/25 02/21/25 History Aspirin EC [Ecotrin Low Dose] 81 mg PO DAILY 02/21/25 02/21/25 History Docusate [Colace] 100 mg PO BID 02/21/25 02/21/25 History Ondansetron Odt [Zofran Odt] 4 - 8 mg PO Q4H PRN 02/21/25 02/21/25 History Allergies Allergy/AdvReac Type Severity Reaction Status Date / Time No Known Allergies Allergy Verified 02/21/25 10:14 Physical Exam Vitals: Vital Signs Temp Pulse Pulse Pulse Resp BP BP 02/21/25 09:08 97.9 F 102 H 18 112/74 02/21/25 07:19 98.4 F 101 H 19 118/78 02/21/25 05:07 107 H 16 99/64 02/21/25 02:08 108 H 16 101/65 02/21/25 01:17 105 H 19 103/70 02/21/25 00:28 107 H 02/20/25 22:26 97.8 F 115 H 18 104/72 Pulse Ox 02/21/25 09:08 95 02/21/25 07:19 95 02/21/25 05:07 95 02/21/25 02:08 94 L 02/21/25 01:17 94 L 02/21/25 00:28 02/20/25 22:26 95 Intake and Output 02/20/25 02/21/25 02/21/25 22:59 06:59 14:59 Other: Weight 54.431 kg - Constitutional General appearance: average body habitus, cooperative, no acute distress - EENT Eyes: anicteric sclerae, EOMI ENT: hearing grossly normal, thrush - Neck Neck: no lymphadenopathy - Respiratory Respiratory: right: diminished, left: rales - Cardiovascular Rhythm: regular Heart sounds: normal: S1, S2 Abnormal Heart Sounds: no systolic murmur, no diastolic murmur, no rub, no S3 Gallop, no S4 Gallop, no click, no other leg Peripheral Edema: bilateral: None - Gastrointestinal General gastrointestinal: no absent bowel sounds, decreased bowel sounds, no distended, no hepatomegaly, no hyperactive bowel sounds, no normal bowel sounds, no organomegaly, no rigid, no scaphoid, soft, no splenomegaly, tenderness, no umbilical hernia, no ventral hernia - Integumentary Integumentary: normal - Neurologic Neurologic: CNII-XII intact - Musculoskeletal Musculoskeletal: generalized weakness - Psychiatric Psychiatric: A&O x's 3, appropriate affect, intact judgment & insight Results CBC & Chem 7: 02/20/25 23:46 02/20/25 23:46 Labs: Abnormal Lab Results - Last 24 Hours (Table) 02/20/25 02/20/25 02/20/25 Range/Units 23:46 23:46 23:46 RBC 3.54 L (4.10-5.20) 10*6/uL Hgb 11.1 L (12.0-15.0) g/dL Hct 33.6 L (37.2-46.3) % Lymphocytes # 0.72 L (0.90-5.00) 10*3/uL Eosinophils # 0.72 H (0.04-0.35) 10*3/uL PT 13.8 H (10.0-12.5) sec INR 1.3 H (<1.2) Sodium 133 L (137-145) mmol/L Potassium 3.1 L (3.5-5.1) mmol/L Chloride 94 L (98-107) mmol/L Carbon Dioxide 32 H (22-30) mmol/L BUN 18 H (7-17) mg/dL Creatinine 0.39 L (0.52-1.04) mg/dL AST 237 H (14-36) U/L ALT 216 H (4-34) U/L Alkaline Phosphatase 137 H (38-126) U/L Total Protein 5.9 L (6.3-8.2) g/dL Albumin 3.1 L (3.5-5.0) g/dL Urine Appearance (Clear) Urine Protein (Negative) Urine Ketones (Negative) Urine Bilirubin (Negative) Ur Squamous Epith Cells (0-4) /hpf Urine Bacteria (None) /hpf Urine Mucus (None) /hpf 02/21/25 Range/Units 00:20 RBC (4.10-5.20) 10*6/uL Hgb (12.0-15.0) g/dL Hct (37.2-46.3) % Lymphocytes # (0.90-5.00) 10*3/uL Eosinophils # (0.04-0.35) 10*3/uL PT (10.0-12.5) sec INR (<1.2) Sodium (137-145) mmol/L Potassium (3.5-5.1) mmol/L Chloride (98-107) mmol/L Carbon Dioxide (22-30) mmol/L BUN (7-17) mg/dL Creatinine (0.52-1.04) mg/dL AST (14-36) U/L ALT (4-34) U/L Alkaline Phosphatase (38-126) U/L Total Protein (6.3-8.2) g/dL Albumin (3.5-5.0) g/dL Urine Appearance Cloudy H (Clear) Urine Protein Trace H (Negative) Urine Ketones 1+ H (Negative) Urine Bilirubin 1+ H (Negative) Ur Squamous Epith Cells 7 H (0-4) /hpf Urine Bacteria Rare H (None) /hpf Urine Mucus Moderate H (None) /hpf Assessment and Plan (1) Dehydration Current Visit: Yes Status: Acute Priority: High Code(s): E86.0 - DEHYDRATION SNOMED Code(s): 61126296 (2) Extensive stage primary small cell carcinoma of lung Current Visit: Yes Status: Chronic Priority: High Code(s): C34.90 - MALIGNANT NEOPLASM OF UNSP PART OF UNSP BRONCHUS OR LUNG SNOMED Code(s): 122627995859681 (3) Transaminitis Current Visit: Yes Status: Acute Priority: Medium Code(s): R74.01 - ELEVATION OF LEVELS OF LIVER TRANSAMINASE LEVELS SNOMED Code(s): 174215725 Plan: Dehydration and anorexia -pt reporting vomiting without nausea. CT head ordered to rule out recurrent brain mets. If neg, may have to consider EGD -IV fluids for today, oral intake as tolerated -Supportive meds ordered for symptoms SCLC -diagnosis and treatment as documented in HPI -Most recently on zepzelka, s/p 3 cycles, just had treatment about week and a half ago -Due for treatment follow up scans, they are ordered for Sunday. Will order now due to pt symptoms Transaminitis -Underlying caused may be chemo, may be disease. CT CAP ordered -Amylase and lipase ordered in setting of vomiting Did discuss with pt and family concerns that treatment may not have been effective and that malignancy may be the underlying cause for her symptoms. They verbalized understanding. Pending CT results
--- NOTE | 2025-02-21 17:02 | CT ---
EXAMINATION TYPE: CT brain w con CT DLP: 2253.1 mGycm, Automated exposure control for dose reduction was used. DATE OF EXAM: 02/21/2025 4:30 PM COMPARISON: MRI brain 11/24/2024. MRI brain 08/20/2024. CLINICAL INDICATION:Female, 64 years old with history of vomiting without nausea, Hx of brain mets; P HH, weakness, vomiting, mets TECHNIQUE: Axial CT images of the brain were obtained with coronal and sagittal reformats created and reviewed. Contrast used:100ml mL of Isovue 300 with IV Contrast, Oral contrast used: none. FINDINGS: Motion artifact on exam limits evaluation. Extra-axial spaces: No abnormal extra-axial fluid collections. Ventricular system: Dilatation in proportion to cerebral atrophy. Cerebral parenchyma: Cerebral atrophy. No acute intraparenchymal hemorrhage or mass effect. The beltran -white junction is well differentiated. There are multiple areas of hyperenhancement seen throughout the brain parenchyma some of which are more conspicuous than others. There is no significant vasogen ic edema associated with these hyperenhancing foci. Examples are seen in the left frontal lobe measur ing up to 5.4 mm, in the right parietal lobe measuring 3.7 mm, right anterior temporal lobe measuring 4.6 mm and in the area of the tectum of the right-sided midbrain enhancing focus measuring up to 6 m m. Additional subcentimeter scattered foci of enhancement seen in the brain parenchyma more conspicuo us in the right side. There are a few enhancing foci seen within the cerebellum with the most conspic uous of the seen in the right cerebellar hemisphere measuring up to 6 mm. Mass effect: No evidence of midline shift. Intracranial vasculature: unremarkable Soft tissues: Normal. Calvarium/osseous structures: No depressed skull fracture. Paranasal sinuses and mastoid air cells: Trace fluid is noted in the right mastoid air cells. Visualized orbits: Orbital contents are intact. IMPRESSION: Multiple subcentimeter enhancing foci are seen in the supratentorial and infratentorial brain parench yma as described above. These are concerning for metastatic lesions. These lesions do not demonstrate significant associated edema or mass effect. No midline shift or concerning extra-axial fluid collec tions appreciated at this time. [facility], , 02/21/2025 5:00 PM
[2025-02-21 17:37] LABS: Amylase <30 U/L (30-110); Lipase 40 U/L (23-300)
[2025-02-21] MEDS: POTASSIUM CHLORIDE ER 20 MEQ TAB.ER PO STA (17:53)
--- NOTE | 2025-02-21 18:51 | CT ---
EXAMINATION TYPE: CT ChestAbdPelvis w con CT DLP: 900.1 mGycm, Automated exposure control for dose reduction was used. DATE OF EXAM: 02/21/2025 4:29 PM COMPARISON: CT chest abdomen and pelvis from 12/12/2024 CLINICAL INDICATION:Female, 64 years old with history of treatment assessment; PHH, vomiting, mets Technique: CT ChestAbdPelvis w con; Multiple axial images were obtained. Two-dimensional coronal and sagittal reconstructions were obtained. Contrast used:100ml mL of Isovue 300 with IV Contrast, Oral contrast used: without Oral Contrast Findings: CHEST: LUNGS/ PLEURA: There is interval progression of previously seen trace pleural effusion now moderate i n size. There is interval development of right upper lobe lobar atelectasis . There are subtle subce ntimeter groundglass subpleural nodule seen in the left upper lobe. There are innumerable pulmonary n odules seen in the visualized right middle lobe with a conspicuous one of these measuring up to at le ast 5 mm. No pneumothorax. AIRWAY: Patent. HEART/PERICARDIUM: Size within normal limits.Moderate coronary artery atherosclerosis present. Trace pericardial fluid is present. MEDIASTINUM: There is progression of mediastinal lymphadenopathy with multiple lymph nodes demonstrat ing interval growth most notably the necrotic lymph node in the right paratracheal space now measurin g up to 17 mm in addition to the subcarinal lymph node now measuring up to at least 2.2 cm previously measuring 16 mm. The conglomerate lymphadenopathy in the left-sided mediastinum also appear progress ed. Soft tissue masses/lymphadenopathy in the mediastinum are demonstrating effacement of the bilater al mainstem bronchi. There is progression of the right perihilar lymphadenopathy/soft tissue masses w ith the dominant mass previously measuring up to 15 mm now measuring up to 21 mm. VASCULATURE: No aortic aneurysm. SOFT TISSUES/LYMPH NODES: Redemonstrated lymphadenopathy in the bilateral pectoral/posterior clavicul ar region with redemonstrated on the lymph nodes along the left upper chest wall. LOWER NECK: No significant findings. ABDOMEN: ABDOMEN LIVER: There appears to be more conspicuous lesions in the left hepatic lobe when compared to prior w ith the largest of these measuring up to 18 mm. The previously seen right hepatic lobe lesions do natalio ear slightly more conspicuous when compared to prior study. GALLBLADDER AND BILE DUCTS: Unremarkable. PANCREAS: Unremarkable. SPLEEN: Unremarkable. ADRENAL GLANDS: Stable appearance of the left adrenal gland soft tissue mass which may even be slight ly smaller in size measuring up to 3.2 cm compared to 3.5 cm on prior study. The right adrenal gland is unremarkable. KIDNEYS AND URETERS: No hydronephrosis. Stable left renal cyst. The visualized ureters appear unremar kable.. BLADDER: Incompletely distended and grossly unremarkable. ABDOMEN & PELVIS STOMACH AND BOWEL: Stomach is grossly unremarkable. The small bowel is of normal caliber. Scattered c olonic diverticula are seen without associated fat stranding. No evidence of bowel obstruction. PERITONEUM: No evidence of pneumoperitoneum or free fluid. VASCULATURE: No evidence of aortic aneurysm. LYMPH NODES: No gross evidence for lymphadenopathy. SOFT TISSUE/ABDOMINAL WALL: Unremarkable MUSCULOSKELETAL: Sclerotic lesions involving the sternum and spine appear to have become more conspic uous and have progressed from the study in reference. No acute fracture is identified. IMPRESSION: Overall progression of disease when compared to the CT from 12/12/2024. There is interval progression of mediastinal and perihilar lymphadenopathy in addition to pulmonary nodules as detailed above. Michael tionally there is a moderate right pleural effusion with right upper lobe are collapsed. There is pro gression of osseous and hepatic metastatic disease. The left adrenal gland mass is stable or slightly decreased in size when compared to prior. [facility], , 02/21/2025 6:48 PM
[2025-02-21] MEDS: ALPRAZolam 0.5 MG TAB PO SCH (20:26)
[2025-02-21] MEDS: DOCUSATE 100 MG CAP PO SCH (20:26)
[2025-02-21] MEDS: carvediloL 12.5 MG TAB PO SCH (20:26)
[2025-02-21] MEDS: MEMANTINE 10 MG TAB PO SCH (20:26)
[2025-02-21] MEDS: POTASSIUM CHLORIDE ER 20 MEQ TAB.ER PO SCH (20:26)
--- NOTE | 2025-02-21 21:05 | P.HPIM ---
History of Present Illness H&P Date: 02/21/25 Chief Complaint: Nausea and vomiting Patient is a 64-year-old female with a known history of coronary artery disease with stent placement, hypertension, hyperlipidemia, history of DC and renal lung cancer presents here with complaints of decreased oral intake. Patient has a dvanced lung cancer currently undergoing chemotherapy and last chemotherapy about a week ago. Patient came to ER with generalized weakness, nausea and vomiting and unable to keep down food. Mainly nonbilious nonbloody emesis. No complaints of pain. No hematemesis or melena. No cough or production. Denied any fever or chills. CT head showed multiple subcentimeter enhancing foci are seen in the supratentorial and infratentorial brain parenchyma. These are concerning for metastatic lesions. These lesions do not demonstrate significant associated edema or mass effect. No midline shift or concerning extra-axial fluid collection appreciated at this time. Laboratory data showed WBC 8.1 hemoglobin 11.1 and platelets 157 INR 1.3 Sodium 133 potassium 3.1 chloride 94 bicarb is 32 BUN 18 and creatinine 0.39 and magnesium 1.8 liver enzymes showed AST 237 ALT 216 and alk phos 137 and an album in 3.1 lipase 40 Urinalysis showed cloudy with trace protein 1+ ketones 1+ [place] and leukocyte esterase negative. RBCs 1 and WBCs 5. Review of Systems Constitutional: Patient denies any fever or chills . Generalized weakness and fatigue and weight loss Abdomen: Nausea and vomiting. No abdominal pain or diarrhea. Cardiovascular: Patient denies any chest pain or short of breath no palpitations. Respiratory: patient denied any cough or sputum production. No shortness of breath Neurologic: Patient denied any numbness or tingling. no headache. Musculoskeletal: Patient denies any complaints of joint swelling or deformity. Skin: Negative Psychiatric: Negative Endocrine: No heat or cold intolerance. No recent weight gain. Genitourinary: No dysuria or hematuria. All other 14 point ROS negative except the above Past Medical History Past Medical History: Coronary Artery Disease (CAD), Cancer, Heart Failure, GERD/Reflux, Hyperlipidemia, Hypertension, Myocardial Infarction ([place]) Additional Past Medical History / Comment(s): VOCAL CORD POLYP, lung cancer Last Myocardial Infarction Date:: 2011 History of Any Multi-Drug Resistant Organisms: None Reported Past Surgical History: Heart Catheterization With Stent, Tonsillectomy, Tubal Ligation Additional Past Surgical History / Comment(s): JHON R.K. SX, VOCAL CHORD POLYPS REMOVED x2 Past Anesthesia/Blood Transfusion Reactions: No Reported Reaction Date of Last Stent Placement:: UNK Past Psychological History: No Psychological Hx Reported Smoking Status: Never smoker Past Alcohol Use History: None Reported Past Drug Use History: None Reported - Past Family History Sister(s) Family Medical History: Cancer Medications and Allergies Home Medications Medication Instructions Recorded Confirmed Type Carvedilol 25 mg PO BID 07/29/14 02/21/25 History Memantine [Namenda] 10 mg PO BID 07/18/24 02/21/25 History ALPRAZolam [Xanax] 0.5 mg PO BID 02/21/25 02/21/25 History Aspirin EC [Ecotrin Low Dose] 81 mg PO DAILY 02/21/25 02/21/25 History Docusate [Colace] 100 mg PO BID 02/21/25 02/21/25 History Ondansetron Odt [Zofran Odt] 4 - 8 mg PO Q4H PRN 02/21/25 02/21/25 History Allergies Allergy/AdvReac Type Severity Reaction Status Date / Time No Known Allergies Allergy Verified 02/21/25 10:14 Physical Exam Vitals: Vital Signs Temp Pulse Pulse Pulse Resp BP BP 02/21/25 12:08 98.0 F 99 18 127/83 02/21/25 09:08 97.9 F 102 H 18 112/74 02/21/25 07:19 98.4 F 101 H 19 118/78 02/21/25 05:07 107 H 16 99/64 02/21/25 02:08 108 H 16 101/65 02/21/25 01:17 105 H 19 103/70 02/21/25 00:28 107 H 02/20/25 22:26 97.8 F 115 H 18 104/72 Pulse Ox 02/21/25 12:08 94 L 02/21/25 09:08 95 02/21/25 07:19 95 02/21/25 05:07 95 02/21/25 02:08 94 L 02/21/25 01:17 94 L 02/21/25 00:28 02/20/25 22:26 95 Intake and Output 02/20/25 02/21/25 02/21/25 22:59 06:59 14:59 Other: Weight 54.431 kg 54.431 kg PHYSICAL EXAMINATION: Patient is sitting on the side of the bed, no acute distress, awake alert and oriented. Lethargic and weak.. HEENT: Normocephalic. Neck is supple. Pupils reactive. Nostrils clear. Oral cavity is moist. Neck reveals no JVD, carotid bruits, or thyromegaly. CHEST EXAMINATION: Trachea is central. Symmetrical expansion. Lung skelton clear to auscultation and percussion. CARDIAC: Normal S1, S2 with no gallops. No murmurs ABDOMEN: Soft. Bowel sounds normal. No organomegaly. No abdominal bruits. Extremities: reveal no edema. No clubbing or cyanosis Neurologically awake, alert, oriented x3 with well-coordinated movements. No gross focal deficits noted Skin: No rash or skin lesions. Psychiatric: Coperative. Nonsuicidal Musculoskeletal: No joint swelling or deformity. Normal range of motion. Results CBC & Chem 7: 02/20/25 23:46 02/20/25 23:46 Labs: Abnormal Lab Results - Last 24 Hours (Table) 02/20/25 02/20/25 02/20/25 Range/Units 23:46 23:46 23:46 RBC 3.54 L (4.10-5.20) 10*6/uL Hgb 11.1 L (12.0-15.0) g/dL Hct 33.6 L (37.2-46.3) % Lymphocytes # 0.72 L (0.90-5.00) 10*3/uL Eosinophils # 0.72 H (0.04-0.35) 10*3/uL PT 13.8 H (10.0-12.5) sec INR 1.3 H (<1.2) Sodium 133 L (137-145) mmol/L Potassium 3.1 L (3.5-5.1) mmol/L Chloride 94 L (98-107) mmol/L Carbon Dioxide 32 H (22-30) mmol/L BUN 18 H (7-17) mg/dL Creatinine 0.39 L (0.52-1.04) mg/dL AST 237 H (14-36) U/L ALT 216 H (4-34) U/L Alkaline Phosphatase 137 H (38-126) U/L Total Protein 5.9 L (6.3-8.2) g/dL Albumin 3.1 L (3.5-5.0) g/dL Urine Appearance (Clear) Urine Protein (Negative) Urine Ketones (Negative) Urine Bilirubin (Negative) Ur Squamous Epith Cells (0-4) /hpf Urine Bacteria (None) /hpf Urine Mucus (None) /hpf 02/21/25 Range/Units 00:20 RBC (4.10-5.20) 10*6/uL Hgb (12.0-15.0) g/dL Hct (37.2-46.3) % Lymphocytes # (0.90-5.00) 10*3/uL Eosinophils # (0.04-0.35) 10*3/uL PT (10.0-12.5) sec INR (<1.2) Sodium (137-145) mmol/L Potassium (3.5-5.1) mmol/L Chloride (98-107) mmol/L Carbon Dioxide (22-30) mmol/L BUN (7-17) mg/dL Creatinine (0.52-1.04) mg/dL AST (14-36) U/L ALT (4-34) U/L Alkaline Phosphatase (38-126) U/L Total Protein (6.3-8.2) g/dL Albumin (3.5-5.0) g/dL Urine Appearance Cloudy H (Clear) Urine Protein Trace H (Negative) Urine Ketones 1+ H (Negative) Urine Bilirubin 1+ H (Negative) Ur Squamous Epith Cells 7 H (0-4) /hpf Urine Bacteria Rare H (None) /hpf Urine Mucus Moderate H (None) /hpf Thrombosis Risk Factor Assmnt - DVT/VTE Prophylaxis DVT/VTE Prophylaxis: Pharmacologic Prophylaxis ordered - Choose All That Apply Any of the Below Risk Factors Present?: No Other Risk Factors: Yes Each Risk Factor Represents 2 Points: Age 61-74 years Thrombosis Risk Factor Assessment Total Risk Factor Score: 2 Thrombosis Risk Factor Assessment Level: Low Risk Assessment and Plan Assessment: Intractable nausea vomiting and unable to tolerate oral diet. New metastatic brain lesions Transaminitis Stage IV small cell lung cancer. Currently on chemotherapy last about 1 and half week ago Coronary arteries history of stent placement Hypertension Heparin History of DC DVT prophylaxis Plan: Patient to be continued on IV hydration. Continue symptomatic management for nausea and vomiting. Oncology is on board. Radiation oncology consult. Follow-up CT abdomen pelvis report. Continue supportive care and follow-up closely. Time with Patient: Greater than 30
[2025-02-22] MEDS: ASPIRIN 81 MG PO SCH (08:49)
[2025-02-22] MEDS: FAMOTIDINE 20 MG/2 ML VIAL IV SCH (08:49)
[2025-02-22 09:19] LABS: ALT 167 U/L (8-44); AST 156 U/L (13-35); Albumin 3.2 g/dL (3.8-4.9); Albumin/Globulin Ratio 1.28 Ratio (1.60-3.17); Alkaline Phosphatase 124 U/L (41-126); BUN/Creat Ratio 36.67 Ratio (12.00-20.00); Calcium 8.3 mg/dL (8.7-10.3); Carbon Dioxide 23.9 mmol/L (21.6-31.8); Chloride 100 mmol/L (96-109); Globulin 2.5 g/dL (1.6-3.3); Glucose 87 mg/dL (70-110); Potassium 3.2 mmol/L (3.5-5.5); Sodium 139 mmol/L (135-145); Total Bilirubin 0.7 mg/dL (0.3-1.2); Total Protein 5.7 g/dL (6.2-8.2)
[2025-02-22 09:59] LABS: Basophils # (A) 0.03 X 10*3/uL (0.00-0.10); Basophils % (A) 0.4 %; Eosinophils # (A) 0 X 10*3/uL (0.04-0.35); Eosinophils % (A) 0 %; HCT 35.4 % (37.2-46.3); HGB 11.2 g/dL (12.0-15.0); Lymphocytes # (A) 0.74 X 10*3/uL (0.90-5.00); Lymphocytes % (A) 9.3 %; MCH 30.4 pg (27.0-32.0); MCHC 31.6 g/dL (32.0-37.0); MCV 95.9 FL (80.0-97.0); Mean Platelet Volume 9.8 FL (9.5-12.2); Monocytes # (A) 0.27 X 10*3/uL (0.20-1.00); Monocytes % (A) 3.4 %; NRBC Per 100 WBC 0 X 10*3/uL (0.00-0.01); Neutrophils # (A) 6.86 X 10*3/uL (1.80-7.70); Neutrophils % (A) 86.3 %; Platelet Count 142 X 10*3/uL (140-440); RBC 3.69 X 10*6/uL (4.10-5.20); RDW 19.4 % (11.5-14.5); WBC 7.95 X 10*3/uL (4.50-10.00)
--- NOTE | 2025-02-22 14:26 | P.PN ---
Subjective Progress Note Date: 02/22/25 Principal diagnosis: Dheydration, metastatic SCLC In follow-up today patient is not reporting significant improvements in her overall condition. Maybe feels a little better with some hydration. She is still unable to swallow without feeling like food is getting stuck or regurg itating it, she is having trouble swallowing her meds. Her voice is progressively softer. Her cough is congested, no significant expectoration Objective - Vital Signs Vital signs: Vital Signs Temp 97.7 F 02/22/25 12:42 Pulse 108 H 02/22/25 12:42 Resp 16 02/22/25 12:42 BP 145/91 02/22/25 12:42 Pulse Ox 93 L 02/22/25 12:42 FiO2 Intake & Output 02/21/25 02/22/25 02/22/25 18:59 06:59 18:59 Intake Total 1080 Balance 1080 Weight 58 kg Intake: Oral 1080 Other: Voiding Method Toilet Toilet # Voids 3 2 # Bowel Movements 1 - Constitutional General appearance: Present: cooperative, no acute distress, thin - EENT Eyes: Present: anicteric sclerae, EOMI ENT: Present: hearing grossly normal - Respiratory Respiratory: right: other (Near absent breath sounds), left: diminished - Cardiovascular Rhythm: regular - Integumentary Integumentary: Present: normal - Neurologic Neurologic: Present: CNII-XII intact - Musculoskeletal Musculoskeletal: Present: generalized weakness - Psychiatric Psychiatric: Present: A&O x's 3, appropriate affect, intact judgment & insight - Labs CBC & Chem 7: 02/22/25 03:47 02/22/25 03:47 Labs: Abnormal Lab Results - Last 24 Hours (Table) 02/21/25 02/22/25 02/22/25 Range/Units 17:04 03:47 03:47 RBC 3.69 L (4.10-5.20) X 10*6/uL Hgb 11.2 L (12.0-15.0) g/dL Hct 35.4 L (37.2-46.3) % MCHC 31.6 L (32.0-37.0) g/dL RDW 19.4 H (11.5-14.5) % Immature Gran # 0.05 H (0.00-0.04) X 10*3/uL Lymphocytes # 0.74 L (0.90-5.00) X 10*3/uL Eosinophils # 0 L (0.04-0.35) X 10*3/uL Potassium 3.2 L (3.5-5.5) mmol/L Anion Gap 15.10 H (4.00-12.00) mmol/L Creatinine 0.3 L (0.6-1.5) mg/dL BUN/Creatinine Ratio 36.67 H (12.00-20.00) Ratio Calcium 8.3 L (8.7-10.3) mg/dL AST 156 H (13-35) U/L ALT 167 H (8-44) U/L Total Protein 5.7 L (6.2-8.2) g/dL Albumin 3.2 L (3.8-4.9) g/dL Albumin/Globulin Ratio 1.28 L (1.60-3.17) Ratio Amylase <30 L (30-110) U/L - Imaging and Cardiology CT scan - abdomen: report reviewed CT scan - chest: report reviewed CT Scan - head: report reviewed CT scan - pelvis: report reviewed Assessment and Plan (1) Dehydration Current Visit: Yes Status: Acute Priority: High Code(s): E86.0 - DEHYDRATION SNOMED Code(s): 54234631 (2) Extensive stage primary small cell carcinoma of lung Current Visit: Yes Status: Chronic Priority: High Code(s): C34.90 - MALIGNANT NEOPLASM OF UNSP PART OF UNSP BRONCHUS OR LUNG SNOMED Code(s): 042927362623550 (3) Transaminitis Current Visit: Yes Status: Acute Priority: Medium Code(s): R74.01 - ELEVATION OF LEVELS OF LIVER TRANSAMINASE LEVELS SNOMED Code(s): 527884697 Plan: Dehydration and anorexia -pt reporting vomiting without nausea. CT head performed to rule out recurrent brain mets-from report appears stable, will review with Rad Onc tomorrow. May have to consider EGD -IV fluids for today, oral intake as tolerated -Supportive meds ordered for symptoms SCLC -diagnosis and treatment as documented in consult -Most recently on zepzelka, s/p 3 cycles, just had treatment about week and a half ago -Treatment follow up scans were ordered for Sunday, ordered now due to pt symptoms -We discussed results of the CT scan, chest abdomen and pelvis. The report describes progression of mediastinal lymphadenopathy with multiple nodes demonstrating interval growth, a necrotic right paratracheal lymph node measur ing up to 17 mm, another subcarinal lymph node previously 16 mm now measuring 2.2 cm. Conglomerate lymphadenopathy in the left sided manias diam also appears progressed. Soft tissue masses/lymphadenopathy in the mediastinum are demonstrating effacement of the bilateral mainstem bronchi. Progression of right perihilar lymphadenopathy soft tissue mass, previously 15 mm now measuring up to 21 mm. Liver has more conspicuous lesions in the left hepatic lobe when compared to prior. Adrenal gland lesion stable, may be slightly smaller. Musculoskeletal lesions have become more conspicuous and likely have progressed. MRI of the brain reporting multiple subcentimeter enhancing foci. They do not demonstrate edema or mass effect -Case was reviewed with patient's primary Medical Oncologist. We discussed Tarlatamab-dlle bispecific therapy as an available treatment option. We discu ssed the importance of taking patient's performance status into account when giving consideration o active treatment. We reviewed hospice philosophy and pursuing treatment of symptoms only as a reasonable treatment option. We discussed without treatment patient's life expectancy would likely just a few months, maybe 2 to 3 months. With treatment, as long as patient physically can tolerate treatment and the cancer responds, can have up to 8-9 month progression free survival. -All the patient and her family's questions were answered to the best of my ability at this time. They will discuss everything with the family and report to us tomorrow their wishes. Transaminitis -Likely chemo effect as they are improving with hydration. CT CAP does report some disease progression in the liver, which may also be contributing -Amylase and lipase ordered in setting of vomiting-normal C Time with Patient: Greater than 30
[2025-02-22] MEDS: POTASSIUM CHLORIDE ER 20 MEQ TAB.ER PO STA (15:11)
[2025-02-22] MEDS: POTASSIUM CHLORIDE 10 MEQ in WATER FOR INJECTION 1 100ML.BAG IVPB SCH (15:57)
[2025-02-22] MEDS ORDERED: POTASSIUM CHLORIDE ER 20 MEQ TAB.ER PO SCH (21:00)
[2025-02-22] MEDS: IPRATROPIUM-ALBUTEROL 3 ML NEB INHALATION PRN (21:56)
--- NOTE | 2025-02-23 11:01 | XR ---
EXAMINATION TYPE: XR chest 1V DATE OF EXAM: 02/23/2025 10:45 AM COMPARISON: Chest radiographs from 07/23/2024, CT chest abdomen and pelvis 02/21/2025 TECHNIQUE: XR chest 1V Portable AP radiograph of the chest. CLINICAL INDICATION:Female, 64 years old with history of SOB; FINDINGS: Lungs/Pleura: Left lung is clear. No pneumothorax. Elevation of the right hemidiaphragm. Moderate siz e right pleural effusion with collapse of the right upper lobe as seen on recent CT. Pulmonary vascularity: Unremarkable. Heart/mediastinum: The heart is not enlarged. Known mediastinal and right hilar adenopathy is better appreciated on recent CT. Atherosclerotic calcifications are seen in the aorta. Musculoskeletal: No acute osseous pathology. IMPRESSION: Moderate size right pleural effusion with collapse of the right upper lobe as seen on recent CT. Know n mediastinal and right hilar adenopathy is better appreciated on recent CT. [facility], , 02/23/2025 10:59 AM
--- NOTE | 2025-02-23 15:40 | P.PN ---
Subjective Progress Note Date: 02/23/25 Principal diagnosis: Dheydration, metastatic SCLC In follow-up today patient is not reporting significant improvements in her overall condition, she continues to decline overall. She is still unable to swallow without feeling like food is getting stuck or regurgitating it, she is having trouble swallowing her meds. Her voice is progressively softer. Her cough is congested, some expectoration with use of nebs. She has not needed supplemental O2 Objective - Vital Signs Vital signs: Vital Signs Temp 96.2 F L 02/23/25 11:52 Pulse 96 02/23/25 15:21 Resp 20 02/23/25 11:52 BP 134/85 02/23/25 11:52 Pulse Ox 94 L 02/23/25 11:52 FiO2 Intake & Output 02/22/25 02/23/25 02/23/25 18:59 06:59 18:59 Intake Total 540 240 Balance 540 240 Weight 59.9 kg Intake: Oral 540 240 Other: Voiding Method Toilet Toilet Toilet # Voids 0 2 1 # Bowel Movements 1 - Constitutional General appearance: Present: cooperative, no acute distress, thin - EENT Eyes: Present: anicteric sclerae, EOMI ENT: Present: hearing grossly normal - Respiratory Respiratory: right: other (near absent breath sounds ), bilateral: rales, wheezing - Cardiovascular Rhythm: regular Abnormal Heart Sounds: Absent: systolic murmur, diastolic murmur, rub, S3 Gallop , S4 Gallop, click, other - Integumentary Integumentary: Present: normal - Neurologic Neurologic: Present: CNII-XII intact - Musculoskeletal Musculoskeletal: Present: generalized weakness - Psychiatric Psychiatric: Present: A&O x's 3, appropriate affect, intact judgment & insight - Labs CBC & Chem 7: 02/22/25 03:47 02/22/25 03:47 Assessment and Plan (1) Dehydration Current Visit: Yes Status: Acute Priority: High Code(s): E86.0 - DEHYDRATION SNOMED Code(s): 69101223 (2) Extensive stage primary small cell carcinoma of lung Current Visit: Yes Status: Chronic Priority: High Code(s): C34.90 - MALIGNANT NEOPLASM OF UNSP PART OF UNSP BRONCHUS OR LUNG SNOMED Code(s): 706084534914356 (3) Transaminitis Current Visit: Yes Status: Acute Priority: Medium Code(s): R74.01 - ELEVATION OF LEVELS OF LIVER TRANSAMINASE LEVELS SNOMED Code(s): 297032222 Plan: Dehydration and anorexia -2/2 malignancy SCLC -diagnosis and treatment as documented in consult -Most recently on zepzelka, s/p 3 cycles, just had treatment about week and a half ago -Treatment follow up scans were ordered for Sunday, ordered now due to pt symptoms. CT CAP reports progression of mediastinal lymphadenopathy with multiple nodes demonstrating interval growth, a necrotic right paratracheal lymph node measuring up to 17 mm, another subcarinal lymph node previously 16 mm now measuring 2.2 cm. Conglomerate lymphadenopathy in the left sided manias diam also appears progressed. Soft tissue masses/lymphadenopathy in the medias tinum are demonstrating effacement of the bilateral mainstem bronchi. Progression of right perihilar lymphadenopathy soft tissue mass, previously 15 mm now measuring up to 21 mm. Liver has more conspicuous lesions in the left hepatic lobe when compared to prior. Adrenal gland lesion stable, may be slightly smaller. Musculoskeletal lesions have become more conspicuous and likely have progressed. MRI of the brain reporting multiple subcentimeter enhancing foci. They do not demonstrate edema or mass effect -Yesterday, Case was reviewed with patient's primary Medical Oncologist. We discussed Tarlatamab-dlle bispecific therapy as an available treatment option. We discussed the importance of taking patient's performance status into account when giving consideration of active treatment. We reviewed hospice philosophy and pursuing treatment of symptoms only as a reasonable treatment option. We discussed without treatment patient's life expectancy would likely just a few mo nths, maybe 2 to 3 months. With treatment, as long as patient physically can tolerate treatment and the cancer responds, can have up to 8-9 month progression free survival. All the patient and her family's questions were answered to the best of my ability at that time. -Following up with pt and family today. Pt has decided to treat symptoms. Hospice consult placed for discussion and plan Patient is okay to discharge under the care of hospice once all the plans are in place Doctor attests: I performed a history and physical examination of this patient, developed impression and plan of care. Discussed with dictator. I agree with dictators note, documented as a scribe.
--- NOTE | 2025-02-23 20:31 | P.PN ---
Subjective Progress Note Date: 02/22/25 Patient is a 64-year-old female with a known history of coronary artery disease with stent placement, hypertension, hyperlipidemia, history of KS and renal lung cancer presents here with complaints of decreased oral intake. Patient has advanced lung cancer currently undergoing chemotherapy and last chemotherapy about a week ago. Patient came to ER with generalized weakness, nausea and vomiting and unable to keep down food. Mainly nonbilious nonbloody emesis. No complaints of pain. No hematemesis or melena. No cough or production. Denied any fever or chills. CT head showed multiple subcentimeter enhancing foci are seen in the supratentorial and infratentorial brain parenchyma. These are concerning for metastatic lesions. These lesions do not demonstrate significant associated edema or mass effect. No midline shift or concerning extra-axial fluid collection appreciated at this time. Laboratory data showed WBC 8.1 hemoglobin 11.1 and platelets 157 INR 1.3 Sodium 133 potassium 3.1 chloride 94 bicarb is 32 BUN 18 and creatinine 0.39 and magnesium 1.8 liver enzymes showed AST 237 ALT 216 and alk phos 137 and an albumin 3.1 lipase 40 Urinalysis showed cloudy with trace protein 1+ ketones 1+ [place] and leukocyte esterase negative. RBCs 1 and WBCs 5. 02/22/2025 Patient is sitting on the side of the bed. Awake alert and oriented. Patient is lethargic and weak. Unable to tolerate and felt like food is stuck in her throat and regurgitating. Denied any worsening abdominal pain. No cough or sputum production. Laboratory data show WBC 7.9 hemoglobin 11.2 and platelets 142 sodium 139 potassium 3.2 which is replaced with low IV potassium BUN 11 and creatinine 0.3 and blood sugar 87 liver enzymes showed AST improved to 156 and ALT 167 and alk phos 124 amylase less than 10 lipase 40 Oncology is on board. CT of the abdomen pelvis showed overall progression of the disease. When compared to CT on 12/12/2024. There is interval progression of mediastinal and perihilar lymphadenopathy in addition to pulmonary nodules as detailed. Additionally there is a moderate right pleural effusion with right upper lobe are collapsing. There is progression of osseous and hepatic metastatic disease. The left adrenal gland mass is stable or slightly decreased in size when compared to prior. Current medications reviewed. Objective - Vital Signs Vital signs: Vital Signs Temp 97.7 F 02/22/25 12:42 Pulse 108 H 02/22/25 12:42 Resp 16 02/22/25 12:42 BP 145/91 02/22/25 12:42 Pulse Ox 93 L 02/22/25 12:42 FiO2 Intake & Output 02/21/25 02/22/25 02/22/25 18:59 06:59 18:59 Intake Total 1080 Balance 1080 Weight 58 kg Intake: Oral 1080 Other: Voiding Method Toilet Toilet # Voids 3 2 # Bowel Movements 1 - Exam PHYSICAL EXAMINATION: Patient is sitting on side of the bed., no acute distress, awake alert and o riented, lethargic and weak... HEENT: Normocephalic. Neck is supple. Pupils reactive. Nostrils clear. Oral cavity is moist. Neck reveals no JVD, carotid bruits, or thyromegaly. CHEST EXAMINATION: Trachea is central. Symmetrical expansion. Bibasilar diminished sounds. No wheezing or rhonchi. CARDIAC: Normal S1, S2 with no gallops. No murmurs ABDOMEN: Soft. Bowel sounds normal. No organomegaly. No abdominal bruits. Extremities: reveal no edema. No clubbing or cyanosis Neurologically awake, alert, oriented x3. Able to move all extremities.. No gross focal deficits noted Skin: No rash or skin lesions. Psychiatric: Coperative. Nonsuicidal Musculoskeletal: No joint swelling or deformity. Normal range of motion. - Labs CBC & Chem 7: 02/22/25 03:47 02/22/25 03:47 Labs: Abnormal Lab Results - Last 24 Hours (Table) 02/21/25 02/22/25 02/22/25 Range/Units 17:04 03:47 03:47 RBC 3.69 L (4.10-5.20) X 10*6/uL Hgb 11.2 L (12.0-15.0) g/dL Hct 35.4 L (37.2-46.3) % MCHC 31.6 L (32.0-37.0) g/dL RDW 19.4 H (11.5-14.5) % Immature Gran # 0.05 H (0.00-0.04) X 10*3/uL Lymphocytes # 0.74 L (0.90-5.00) X 10*3/uL Eosinophils # 0 L (0.04-0.35) X 10*3/uL Potassium 3.2 L (3.5-5.5) mmol/L Anion Gap 15.10 H (4.00-12.00) mmol/L Creatinine 0.3 L (0.6-1.5) mg/dL BUN/Creatinine Ratio 36.67 H (12.00-20.00) Ratio Calcium 8.3 L (8.7-10.3) mg/dL AST 156 H (13-35) U/L ALT 167 H (8-44) U/L Total Protein 5.7 L (6.2-8.2) g/dL Albumin 3.2 L (3.8-4.9) g/dL Albumin/Globulin Ratio 1.28 L (1.60-3.17) Ratio Amylase <30 L (30-110) U/L Assessment and Plan Assessment: Intractable nausea vomiting and unable to tolerate oral diet. New metastatic brain lesions Transaminitis Stage IV small cell lung cancer. Currently on chemotherapy last about 1 and half week ago Coronary arteries history of stent placement Hypertension Heparin History of [place] DVT prophylaxis with Lovenox subcu Plan: Patient to be continued on IV hydration. Continue symptomatic management for nausea and vomiting. Oncology is on board. Radiation oncology consult. CT abdomen pelvis report reviewed. Continue supportive care and follow-up closely.
--- NOTE | 2025-02-23 20:32 | P.PN ---
Subjective Progress Note Date: 02/23/25 Patient is a 64-year-old female with a known history of coronary artery disease with stent placement, hypertension, hyperlipidemia, history of KS and renal lung cancer presents here with complaints of decreased oral intake. Patient has advanced lung cancer currently undergoing chemotherapy and last chemotherapy about a week ago. Patient came to ER with generalized weakness, nausea and vomiting and unable to keep down food. Mainly nonbilious nonbloody emesis. No complaints of pain. No hematemesis or melena. No cough or production. Denied any fever or chills. CT head showed multiple subcentimeter enhancing foci are seen in the supratentorial and infratentorial brain parenchyma. These are concerning for metastatic lesions. These lesions do not demonstrate significant associated edema or mass effect. No midline shift or concerning extra-axial fluid collection appreciated at this time. Laboratory data showed WBC 8.1 hemoglobin 11.1 and platelets 157 INR 1.3 Sodium 133 potassium 3.1 chloride 94 bicarb is 32 BUN 18 and creatinine 0.39 and magnesium 1.8 liver enzymes showed AST 237 ALT 216 and alk phos 137 and an albumin 3.1 lipase 40 Urinalysis showed cloudy with trace protein 1+ ketones 1+ [place] and leukocyte esterase negative. RBCs 1 and WBCs 5. 02/22/2025 Patient is sitting on the side of the bed. Awake alert and oriented. Patient is lethargic and weak. Unable to tolerate and felt like food is stuck in her throat and regurgitating. Denied any worsening abdominal pain. No cough or sputum production. Laboratory data show WBC 7.9 hemoglobin 11.2 and platelets 142 sodium 139 potassium 3.2 which is replaced with low IV potassium BUN 11 and creatinine 0.3 and blood sugar 87 liver enzymes showed AST improved to 156 and ALT 167 and alk phos 124 amylase less than 10 lipase 40 Oncology is on board. CT of the abdomen pelvis showed overall progression of the disease. When compared to CT on 12/12/2024. There is interval progression of mediastinal and perihilar lymphadenopathy in addition to pulmonary nodules as detailed. Additionally there is a moderate right pleural effusion with right upper lobe are collapsing. There is progression of osseous and hepatic metastatic disease. The left adrenal gland mass is stable or slightly decreased in size when compared to prior. 02/23/2025 Patient is sitting on his bed. Awake alert and oriented. Very lethargic and weak. Pain is controlled. Still having significant nausea and unable to take any oral intake. Oncology discussed the treatment options and also continue symptomatic management only. Patient and family is aware that her prognosis is not good at this time. Hospitalist service was consulted. Appreciate oncology recommendations. Current medications reviewed. Objective - Vital Signs Vital signs: Vital Signs Temp 97.5 F L 02/23/25 19:09 Pulse 93 02/23/25 19:09 Resp 19 02/23/25 19:09 BP 128/82 02/23/25 19:09 Pulse Ox 96 02/23/25 19:09 FiO2 Intake & Output 02/23/25 02/23/25 02/24/25 06:59 18:59 06:59 Intake Total 240 Balance 240 Weight 59.9 kg Intake: Oral 240 Other: Voiding Method Toilet Toilet # Voids 2 1 - Exam PHYSICAL EXAMINATION: Patient is sitting on side of the bed., no acute distress, awake alert and oriented, lethargic and weak... HEENT: Normocephalic. Neck is supple. Pupils reactive. Nostrils clear. Oral cavity is moist. Neck reveals no JVD, carotid bruits, or thyromegaly. CHEST EXAMINATION: Trachea is central. Symmetrical expansion. Bibasilar diminished sounds. No wheezing or rhonchi. CARDIAC: Normal S1, S2 with no gallops. No murmurs ABDOMEN: Soft. Bowel sounds normal. No organomegaly. No abdominal bruits. Extremities: reveal no edema. No clubbing or cyanosis Neurologically awake, alert, oriented x3. Able to move all extremities.. No gross focal deficits noted Skin: No rash or skin lesions. Psychiatric: Coperative. Nonsuicidal Musculoskeletal: No joint swelling or deformity. Normal range of motion. - Labs CBC & Chem 7: 02/22/25 03:47 02/22/25 03:47 Assessment and Plan Assessment: Intractable nausea vomiting and unable to tolerate oral diet. New metastatic brain lesions Transaminitis Stage IV small cell lung cancer. Currently on chemotherapy last about 1 and half week ago Coronary arteries history of stent placement Hypertension Heparin History of [place] DVT prophylaxis with Lovenox subcu Plan: Patient to be continued on IV hydration. Continue symptomatic management for nausea and vomiting. Oncology is on board. CT abdomen pelvis showed disease progression since November 2024.. Continue supportive care and follow-up closely. Treatment options including hospice care was discussed with the patient and family. Patient would like to proceed t with symptomatic management only. Hosp ice care was consulted. Prognosis is poor at this time. Time with Patient: Greater than 30
[2025-02-24 07:58] VITALS: BP 126/84; RESP 16; TEMP 97.9
[2025-02-24 08:42] VITALS: PULSE 100
== END 2025-02-24 16:30 | disposition hospice, inpatient (51) | DRG 392 ==
LOC: EC 22:23 → 5NMEDONC 02-21 01:21
PROVIDERS: ADMIT Hospitalist; ATTEND Hospitalist
DX: R11.2 Nausea with vomiting, unspecified (principal); C79.31 Secondary malignant neoplasm of brain; C78.7 Secondary malignant neoplasm of liver and intrahepatic bile duct; C34.90 Malignant neoplasm of unspecified part of unspecified bronchus or lung; I11.0 Hypertensive heart disease with heart failure; E86.0 Dehydration; I50.9 Heart failure, unspecified; E78.5 Hyperlipidemia, unspecified; C79.70 Secondary malignant neoplasm of unspecified adrenal gland; I25.10 Atherosclerotic heart disease of native coronary artery without angina pectoris; R74.01 Elevation of levels of liver transaminase levels; I25.2 Old myocardial infarction; Z79.82 Long term (current) use of aspirin; Z79.899 Other long term (current) drug therapy; Z85.118 Personal history of other malignant neoplasm of bronchus and lung; Z95.5 Presence of coronary angioplasty implant and graft
CPT/HCPCS: 36415; 70460; 71045; 71260; 74177; 80053; 81001; 82150; 83605; 83690; 83735; 84484; 85025; 85610; 85730; 93005; 94640; 96361; 96374; 99285